=== PATIENT | female | born 1950 | race Caucasian/White ===

== ENCOUNTER → 2018-01-31 13:12 | Outpatient (CLI) | payer MEDICARE, OTHER, SELFPAY ==
--- NOTE | 2018-01-31 13:16 | HPBI_ITS ---
MAMMOGRAPHY - BILATERAL SCREENING REASON FOR EXAM: Female, 67 years old. Routine annual screening examination. PERTINENT HISTORY: Sisters with breast cancer. TECHNIQUE: Digital bilateral breast stacy (3D mammographic acquisition) in the CC and MLO projections. 2-D mediolateral oblique (MLO) and craniocaudad (CC) views of both breasts were obtained. CAD: Full Field Digital Mammography with Computer Added Detection was performed. COMPARISON: Comparison is made with prior study dated June 14, 2017 and August 28, 2015. FINDINGS: Breast Composition: There are scattered areas of fibroglandular density. There are no dominant masses or suspicious calcifications. There is a 4.9 mm x 6.0 mm well-defined nodule in the mid lateral portion of the right breast. A central notch is seen. This most likely represents a benign lymph node. No other significant abnormalities are identified. There has been no significant change since the prior study. HPBI/SCREENING MAMM (CAD), BILAT IMPRESSION: Stable bilateral screening mammogram. Yearly follow-up mammogram recommended. (A) ASSESSMENT CATEGORY: BIRADS Category 2: Benign. A letter regarding these results will be sent to the patient by the facility within 30 days. Approximately 10% of breast cancers are not detected by mammography. A normal mammogram should not delay biopsy of a clinically suspicious abnormality. [id number] Electronically Signed: Kvng Michael MD at 14:26 EDT Tel [phone], Service support ,
== END ==
PROVIDERS: Family Provider Internal Medicine; PCP Internal Medicine; Visit Provider Internal Medicine
DX: Z12.31 Encounter for screening mammogram for malignant neoplasm of breast (principal)
CPT/HCPCS: 77063; 77067

== ENCOUNTER → 2018-02-03 09:46 | Outpatient (CLI) | payer MEDICARE, OTHER, SELFPAY ==
--- NOTE | 2018-02-03 09:48 | US_ITS ---
STUDY: ABDOMINAL ULTRASOUND - RIGHT UPPER QUADRANT REASON FOR VISIT: Female, 68 years old. Epigastric pain. TECHNIQUE: Ultrasound evaluation of the right upper quadrant was performed with real-time and static romero-scale imaging. TECHNICAL QUALITY: Adequate. COMPARISON: None. FINDINGS: Liver: The liver measures 15.5 cm. There is increased echogenicity consistent with fatty infiltration. The bile ducts are within normal limits. There is hepatic color flow. The direction of portal flow is hepatopetal. There is no demonstrated mass lesion. Gallbladder: The patient is status post cholecystectomy. Common Bile Duct (C.B.D.): The common bile duct measures 10 mm. Pancreas: Normal size of the head, body and tail of the pancreas. There is normal echogenicity of the pancreas. There is no demonstrated pancreatic mass or cyst. Right Kidney: Normal size of the right kidney. The right kidney measures 9.7 cm x 4.2 cm x 5.0 cm. Normal renal cortex. The right cortex measures 1.3 cm. There is no demonstrated renal mass or cyst. There is no right hydronephrosis. US/Abdomen Limited IMPRESSION: Fatty infiltration of the liver. Status post cholecystectomy. Electronically Signed: Kvng Michael MD at 13:52 EDT Tel [phone], Service support ,
== END ==
PROVIDERS: Family Provider Internal Medicine; PCP Internal Medicine; Visit Provider Internal Medicine
DX: R10.13 Epigastric pain (principal)
CPT/HCPCS: 76705

== ENCOUNTER → 2018-02-14 12:22 | Outpatient (CLI) | payer MEDICARE, OTHER, SELFPAY ==
--- NOTE | 2018-02-14 13:00 | MRI_ITS ---
STUDY: MR CHOLANGIOPANCREATOGRAPHY (MRCP) REASON FOR EXAM: Female, 68 years old. Nausea, right neck and scapular pain. Symptoms off and on x 1 year, now more frequent. Gallbladder removed in 1991 TECHNIQUE: Standard MRCP technique was utilized. COMPARISON: CT 09-01-12 FINDINGS: There are calcifications of the abdominal aorta. This is consistent for atherosclerotic disease. There is no abdominal aortic aneurysm. Bilateral peripelvic renal cysts. Gall Bladder: Gall bladder is surgically absent. Cystic duct: Normal with no demonstrated fixed filling defect. Intrahepatic ducts: Mild dilation of the intrahepatic ducts. Common hepatic duct: Normal with no demonstrated fixed filling defect, dilation or stricture. Common bile duct: There is dilation of the common bile duct. A common bile duct stone is not seen. Diameter of 13 mm. Pancreatic duct: Normal with no demonstrated fixed filling defect, dilation or stricture. MRI/MRCP Abdomen without Contrast IMPRESSION: There is dilation of the common bile duct. A common bile duct stone is not seen. Electronically Signed: Vj Rajput MD at 23:25 EDT , Service support ,
== END ==
PROVIDERS: Family Provider Internal Medicine; PCP Internal Medicine; Visit Provider Internal Medicine
DX: K83.8 Other specified diseases of biliary tract (principal)
CPT/HCPCS: 74181

== ENCOUNTER → 2018-03-08 06:51 | Outpatient (CLI) | payer MEDICARE, OTHER, SELFPAY ==
[2018-03-08 08:39] LABS: AST(SGOT) 19 U/L (15-37); Alanine Aminotransfer ALT/SGPT 24 U/L (13-56); Albumin, Serum 3.8 g/dL (3.2-5.0); Alkaline Phosphatase 67 U/L (45-117); Bilirubin, Direct 0.12 mg/dL (0.00-0.30); Cholesterol 300 mg/dL (200); Free T3 2.7 pg/mL (2.18-3.98); Globulin 3.7 g/dL (2.2-4.2); High Density Lipoprotein 62 mg/dL; Protein, Total 7.5 g/dL (6.4-8.2); T4 Free Direct 0.97 ng/dL (0.76-1.46); Thyroid Stim Hormone (TSH) 3.42 uIU/mL (0.358-3.74); Triglycerides 168 mg/dL; Very Low Density Lipoprotein 34 mg/dL (5-40)
== END ==
PROVIDERS: Family Provider Internal Medicine; PCP Internal Medicine; Visit Provider Internal Medicine
DX: R10.13 Epigastric pain (principal); R94.6 Abnormal results of thyroid function studies; E78.00 Pure hypercholesterolemia, unspecified
CPT/HCPCS: 36415; 80061; 80076; 84439; 84443; 84481

== ENCOUNTER → 2018-05-09 08:21 | Outpatient (CLI) | payer MEDICARE, OTHER, SELFPAY ==
--- NOTE | 2018-05-09 08:25 | BD_ITS ---
STUDY: DUAL ENERGY X-RAY ABSORPTIOMETRY / DXA REASON FOR EXAM: Female, 68 years old. The patient is postmenopausal. Loss of height. TECHNIQUE: Bone Mineral Density (BMD) measurements of lumbar spine and bilateral hips were obtained. COMPARISON: Comparison is made with prior study dated February 10, 2011. FINDINGS: Lumbar Spine (L1-L4): g/cm2 (1.404) / T-score (2.0) / Z-score (3.7) Findings are suggestive of normal bone density with a low fracture risk. Left Femur Total: g/cm2 (1.260) / T-score (2.0) / Z-score (3.5) Left Femoral Neck: g/cm2 (1.234) / T-score (1.4) / Z-score (3.1) Right Femur Total: g/cm2 (1.117) / T-score (0.9) / Z-score (2.3) Right Femoral Neck: g/cm2 (1.078) / T-score (0.3) / Z-score (2.0) The T-Scores on the most recent prior examination were: Lumbar Spine (L1-L4): There has been improvement of bone density since the previous examination. Left Femur Total: which represents an improvement of 4%. Right Femur Total: which represents a worsening of 2.9%. BD/Dexa Bone Density Study IMPRESSION: The patient is considered normal as outlined below according to World K[employer] Organization (WHO) criteria with a low fracture risk. There has been improvement of bone density since the previous examination. Reference Information: The T-score is the number of standard deviations above or below the standard which is normal for young adults at their peak bone mineral density. The World Health Organization (WHO) interprets the T-scores as follows: Above -1 Normal bone density Between -1 and -2.5 Osteopenia Equal to / or below -2.5 Osteoporosis As a practical clinical guideline, osteopenia may be graded as follows: Mild -1 through -1.5 Moderate -1.6 through -2.0 Severe -2.1 through -2.4 The Z-score is the number of standard deviations above or below age-matched controls. A Z-score of less than -1.5 would be considered abnormal. References: 1. NIH Osteoporosis and Related Bone Diseases http://www.osteo.org 2. International Society for Clinical Densitometry http://www.iscd.org 3. National Osteoporosis Foundation http://www.nof.org Electronically Signed: Kvng Michael MD at 8:25 EDT Tel [phone], Service support ,
== END ==
PROVIDERS: Family Provider Internal Medicine; PCP Internal Medicine; Visit Provider Internal Medicine
DX: Z78.0 Asymptomatic menopausal state (principal)
CPT/HCPCS: 77080

== ENCOUNTER → 2018-05-25 09:39 | Outpatient (CLI) | payer MEDICARE, OTHER, SELFPAY ==
--- NOTE | 2018-05-25 09:42 | RAD_ITS ---
STUDY: X-RAY - LUMBAR SPINE REASON FOR EXAM: Female, 68 years old. Low back pain after long standing 5 days ago. TECHNIQUE: 5 view(s) of the lumbar spine were obtained. COMPARISON: None FINDINGS: Normal lumbar lordosis. There is no substantial scoliosis. There is a normal alignment of the vertebrae. Transitional L5 vertebral body with the sacral articulation on the left side. Negative for fracture of the lumbar spine. Advanced disc narrowing at L4-5. Mild to moderate disc narrowing at other lumbar levels with minimal spondylitic endplate changes. Hypertrophic facet arthrosis primarily at L4-5 and L5-S1 bilaterally. Aortic calcifications. Status post cholecystectomy. RAD/L/S Spine Min 4 Views IMPRESSION: Normal alignment of the lumbar spine without fracture deformity. Normal variation of a transitional L5 with a sacral articulation on the left. Advanced disc narrowing at L4-5. Mild to moderate narrowing at other lumbar levels. Facet arthrosis at L4-5 and L5-S1. Electronically Signed: Mikayla Guerrier MD at 21:17 EDT , Service support ,
== END ==
PROVIDERS: Family Provider Internal Medicine; PCP Internal Medicine; Visit Provider Nurse Practitioner Gerontology
DX: M54.5 Low back pain (principal)
CPT/HCPCS: 72110

== ENCOUNTER → 2018-06-02 08:17 | Outpatient (CLI) | payer MEDICARE, OTHER, SELFPAY ==
--- NOTE | 2018-06-02 08:19 | RAD_ITS ---
STUDY: X-RAY - CERVICAL SPINE REASON FOR EXAM: Female, 68 years old. Neck pain. TECHNIQUE: 3 view(s) of the cervical spine were obtained. COMPARISON: None FINDINGS: There are degenerative changes of the anterior atlantoaxial articulation. Normal odontoid process. There is straightening of the normal lordotic curve, a nonspecific finding, which may be due to positioning or which might be due to muscle spasm. There is spondylosis and disc space narrowing at the C5-6 level. Other disc space heights are intact. The soft tissue structures are unremarkable. RAD/Cerv Spine 2 or 3 Views IMPRESSION: Degenerative changes, as above.. No demonstrated fracture or subluxation. Electronically Signed: Jamil Paulson MD at 7:12 EDT , Service support ,
== END ==
PROVIDERS: Family Provider Internal Medicine; PCP Internal Medicine; Visit Provider Internal Medicine
DX: M89.8X1 Other specified disorders of bone, shoulder (principal)
CPT/HCPCS: 72040

== ENCOUNTER → 2018-06-21 09:04 | Outpatient (CLI) | payer MEDICARE, OTHER, SELFPAY ==
--- NOTE | 2018-06-21 09:15 | RAD_ITS ---
STUDY: X-RAY - ABDOMEN/PELVIS REASON FOR EXAM: Female, 68 years old. Groin pain TECHNIQUE: AP supine and upright views of the abdomen and pelvis. COMPARISON: None. FINDINGS: Normal visualized lung bases. There is an unremarkable bowel gas pattern. There is no demonstrated free abdominal air. The visualized liver, spleen and kidneys are grossly normal in size and morphology. Surgical clips are seen in the right upper quadrant of the abdomen. There is a transitional vertebrae of the lumbosacral junction. There are mild degenerative changes of the hip joints. RAD/Abd Inc Decub and/or Erect IMPRESSION: 1. There is no evidence of ileus, obstruction, or free intraperitoneal air. 2. There are surgical clips in the right upper quadrant of the abdomen most likely associated with cholecystectomy. 3. There is a transitional vertebrae of the lumbosacral junction. There are mild degenerative changes of the left and right hip joints. Electronically Signed: Tapan Gore MD at 16:59 EDT , Service support ,
== END ==
PROVIDERS: Family Provider Internal Medicine; PCP Internal Medicine; Visit Provider Nurse Practitioner
DX: R10.30 Lower abdominal pain, unspecified (principal)
CPT/HCPCS: 74019

== ENCOUNTER → 2018-09-08 10:37 | Outpatient (CLI) | payer MEDICARE, OTHER, SELFPAY ==
[2018-09-08 11:04] LABS: Anion Gap 5 (5-15); BUN 13 mg/dL (7-18); BUN/Creat Ratio 21.2 RATIO (10-20); Calcium,Total 9.2 mg/dL (8.5-10.1); Chloride 105 mmol/L (98-107); Creatinine, Serum 0.61 mg/dL (0.55-1.02); EST Glomerular Filtration Rate 102 mL/min (>60); Est Glom Filt Rate - Afr Amer 124 mL/min (>60); Glucose 101 mg/dL (74-106); Potassium 5.3 mmol/L (3.5-5.1); Sodium Level 140 mmol/L (136-145)
== END ==
PROVIDERS: Family Provider Internal Medicine; PCP Internal Medicine; Referring Provider Internal Medicine; Visit Provider Internal Medicine
DX: Z51.81 Encounter for therapeutic drug level monitoring (principal)
CPT/HCPCS: 80048

== ENCOUNTER 2018-09-09 09:19 | Emergency (ER) | payer MEDICARE, OTHER, SELFPAY ==
[2018-09-09 09:19] VITALS: BP 229/93; PULSE 67; RESP 17; TEMP 36.6; O2SAT 96; BMI 33.5
--- NOTE | 2018-09-09 09:30 | EKG12_ITS ---
Test Reason : HYPERTENSION Blood Pressure : / mmHG Vent. Rate : 059 BPM Atrial Rate : 059 BPM P-R Int : 178 ms QRS Dur : 094 ms QT Int : 426 ms P-R-T Axes : 021 -19 017 degrees QTc Int : 421 ms Sinus bradycardia with occasional Premature ventricular complexes Voltage criteria for left ventricular hypertrophy Abnormal ECG Confirmed by TERESE MCKAY, KERWIN ([id number]), editor producer CHARITY VILLEGAS ([id number]) on 09/12/2018 11:06:08 AM Referred By: Jessica Corona Confirmed By:KERWIN GUDINO MD
--- NOTE | 2018-09-09 09:30 | CT_ITS ---
STUDY: CT BRAIN WITHOUT CONTRAST REASON FOR EXAM: Female, 68 years old. Headache and hypertension RADIATION DOSAGE (If Supplied By Facility): CTDIvol = ( 44.99 ) mGy, DLP = ( 745.49 ) mGycm TECHNIQUE: Transaxial CT imaging of the brain was performed without administration of intravenous contrast material. # of Images: 234 Individualized dose optimization techniques were used for this CT. COMPARISON: 12/04/2010 FINDINGS: Normal soft tissue structures. Normal calvarium. There is mild cerebral atrophy with widening of the extra-axial spaces and ventricular dilatation. There are areas of decreased attenuation within the white matter tracts of the supratentorial brain, consistent with microvascular disease changes. Normal basal ganglia and thalami. Normal brainstem. There is mild cerebellar atrophy. There is no intracranial hemorrhage. There are no findings of an acute ischemic infarction. Normal visualized paranasal sinuses. CT/Brain/Head without Contrast IMPRESSION: Chronic involutional changes of the brain. Electronically Signed: Italo Brown DO at 10:22 EDT Tel , Service support ,
--- NOTE | 2018-09-09 09:35 | ED.DCSUM_ITS ---
- ER Visit Summary Date of Service: 09/09/18 Chief Complaint: Hypertension, dizzy, headache History of Present Illness: The patient is a 68 F with headache for the past 1 week. She points to the frontal area as well as radiation of the top of her scalp. She has had recent difficulty controlling her blood pressure. She has had recent medication adjustments and is currently on atenolol, 50 mg in the morning and 25 mg in the evening along with hydrochlorothiazide. Patient denies vision change, nausea, or vomiting. She denies paresthesias or weakness. Physical Examination: Blood pressure is 229/93, temperature 97.8, heart rate 67, respiratory rate 17, pulse ox 96% on room air. Patient is in no acute distress and is nontoxic appearing. Head and neck examination is normal. Heart is regular rate and rhythm. Palpable pulses are noted throughout and equal. Lungs are clear with good air movement throughout. Abdomen is soft and nontender. Bowel sounds are noted. Extremity examination is unremarkable with full range of motion. Neurologic examination reveals no focal deficits. Test Results: CBC and chemistry studies unremarkable. EKG is sinus at 59 with no sign of ischemia. CT head shows chronic involutional changes. Emergency Department Course and Treatment: Patient was given 0.2 mg of p.o. clonidine. Blood pressure has slowly come down and is currently 184/78 with a heart rate of 57. Patient was discussed with her primary care physician, Dr. Corona. Patient is to continue her atenolol and hydrochlorothiazide. We will add Norvasc 2.5 mg. Patient will also be written for a few tabs of clonidine that she can take if her systolic pressure is greater than 200. Treatment Plan: [] Disposition: Discharge Impression: Hypertension, improved This note was generated with [employer] dictation software. It may contain incorrect words, spelling, and punctuation that were not noted in review of the chart prior to signing ED Disposition - Plan for ED Patient: Chief Complaint: Hypertension Referrals: Jessica Corona DO [Primary Care Provider] -
[2018-09-09] MEDS: cloNIDine HCl 0.1 MG Tablet 0.2 MG PO (09:39)
[2018-09-09 09:41] VITALS: BP 229/92; PULSE 63; RESP 12; O2SAT 97
[2018-09-09 09:53] LABS: Absolute Lymphocyte Count 1.21 X10^3/ul (0.83-4.51); Absolute Neutrophil Count 3.9 X10^3/uL (2.0-7.7); Basophil# 0.03 X10^3/uL; Basophil% 0.5 % (0-1); Eosinophil# 0.32 X10^3/uL; Eosinophils% 5.5 % (0-5); Hemoglobin 14.2 g/dl (12.0-15.0); Lymphocyte # 1.21 X10^3/ul (4.0); Lymphocyte % 20.9 % (19-41); Mean Corp Hgb Conc 32.3 g/gl (32-36); Mean Corpuscular Hgb 30.4 pg (27.0-32.0); Mean Corpuscular Volume 94.2 fL (81-99); Mean Platelet Vol. 9.4 fl (6.2-12.0); Monocyte# 0.38 X10^3/uL; Monocyte% 6.6 % (0-10); Neutrophil # 3.85 X10^3/uL (2.7-7.7); Neutrophil % 66.3 % (47-70); POSITIVE COUNT NO; POSITIVE DIFFERENTIAL NO; POSITIVE MORPHOLOGY NO; Platelet Count 251 K/mm3 (150-450); RBC Distribution Width CV 13.3 % (11.6-14.6); RBC Distribution Width SD 45.5 fl (35.1-43.9); Red Blood Count 4.67 M/mm3 (4.2-5.4); White Blood Count 5.8 K/mm3 (4.4-11.0)
[2018-09-09 10:00] LABS: Anion Gap 7 (5-15); BUN 14 mg/dL (7-18); Calcium,Total 9.1 mg/dL (8.5-10.1); Chloride 105 mmol/L (98-107); Creatinine, Serum 0.74 mg/dL (0.55-1.02); EST Glomerular Filtration Rate 83 mL/min (>60); Est Glom Filt Rate - Afr Amer 100 mL/min (>60); Glucose 110 mg/dL (74-106); Potassium 3.7 mmol/L (3.5-5.1); Sodium Level 139 mmol/L (136-145)
[2018-09-09 11:03] VITALS: BP 215/77; PULSE 53; RESP 12; O2SAT 96
[2018-09-09 11:30] VITALS: BP 210/75
--- NOTE | 2018-09-09 12:03 | ED.DEP ---
ED Disposition - Plan for ED Patient: Disposition: Home or Assisted Living Chief Complaint: Hypertension Instructions: ED HTN Established Prescriptions: Amlodipine Besylate [Norvasc] 2.5 mg PO DAILY #30 tablet Clonidine HCl [Catapres] 0.1 mg PO BID PRN #20 tablet PRN Reason: Hypertensive Emergency Referrals: Jessica Corona DO [Primary Care Provider] - 3-5 Days if not improving
[2018-09-09 12:18] VITALS: BP 184/78; PULSE 64; RESP 18; O2SAT 99
== END 2018-09-09 12:18 | disposition home or self-care (01) ==
PROVIDERS: Emergency Provider Emergency Medicine; Family Provider Internal Medicine; PCP Internal Medicine
DX: I10 Essential (primary) hypertension (principal)
CPT/HCPCS: 70450; 80048; 85025; 93005; 99285

== ENCOUNTER → 2018-09-18 16:19 | Outpatient (CLI) | payer MEDICARE, OTHER, SELFPAY ==
--- NOTE | 2018-09-18 16:22 | US_ITS ---
STUDY: RENAL ULTRASOUND - COMPLETE REASON FOR EXAM: Female, 68 years old. Blood pressure. TECHNIQUE: Ultrasound evaluation of the kidneys was performed with real-time and static cancino-scale imaging. COMPARISON: None. FINDINGS: RIGHT KIDNEY: Normal location of the right kidney, which is normal in size. The right kidney measures 10.2 cm. There is a normal cortex of the right kidney. The renal cortex measures 1.1 cm. There is no right renal mass or cyst. There are no right renal calculi. There is no right hydronephrosis. DISTAL RIGHT URETER: There is non-visualization of the distal right ureter. There is no demonstrated right ureterovesical junction calculus. There is no demonstrated right ureteral jet. LEFT KIDNEY: Normal location of the left kidney, which is normal in size. The left kidney measures 11.0 cm. There is a normal cortex of the left kidney. The renal cortex measures 1.5 cm. There are parapelvic cysts measuring up to 1.2 cm. There are no left renal calculi. There is no left hydronephrosis. DISTAL LEFT URETER: There is non-visualization of the distal left ureter. There is no demonstrated left ureterovesical junction calculus. There is no demonstrated left ureteral jet. BLADDER: The distended urinary bladder has a volume of 69 ml. The empty urinary bladder has a volume of 0 ml. There is a normal wall thickness of the distended urinary bladder. There is no demonstrated mass within the urinary bladder. There are no demonstrated bladder calculi. US/Kidney and Bladder IMPRESSION: No hydronephrosis. Parapelvic cysts on the left. Electronically Signed: Jorge Holland MD at 19:57 EDT , Service support ,
== END ==
PROVIDERS: Family Provider Internal Medicine; PCP Internal Medicine; Referring Provider Internal Medicine; Visit Provider Internal Medicine
DX: I10 Essential (primary) hypertension (principal)
CPT/HCPCS: 76770

== ENCOUNTER → 2018-09-22 07:45 | Outpatient (CLI) | payer MEDICARE, OTHER, SELFPAY ==
--- NOTE | 2018-09-22 07:48 | RDU_ITS ---
Reason For Study: HTN without CHF Right Renal Artery Left Renal Artery Right renal artery ostium 100/23 Left renal artery ostium 90.7/17.7 RSV/EDV. PSV/EDV. Right renal artery proximal Left renal artery proximal PSV/EDV 82.2/18.9 PSV/EDV. 87/19.1 . Right renal artery mid 85.5/12.3 Left renal artery mid 71.5/14 PSV/EDV. PSV/EDV . Right renal artery distal 91.9/19 Left renal artery distal 80.4/18.5 PSV/EDV. PSV/EDV. Right RAR 0.84. Left RAR 0.76. Right Renal Parenchyma Left Renal Parenchyma Upper Pole Medula 31.9/7.75 Left upper pole medulla 33.3/9.47 PSV/EDV. PSV/EDV . Right upper pole medulla EDR 0.24 . Left upper pole medulla EDR 0.28 . Right upper pole medulla R.I. Left upper pole medulla R.I. 0.72 . 0.76 . UP Cortex 19.6/5.19 PSV/EDV. Upper [place] Cortx 34.7/10 PSV/EDV. Left upper pole cortex EDR 0.26 . Right upper pole cortex EDR 0.29 . Left upper pole cortex R.I. 0.73 . Right upper pole cortex R.I. 0.71 . Left lower Pole medulla 26.3/6.42 Right lower Pole medulla 40/9.78 PSV/EDV . PSV/EDV . Left lower pole medulla EDR 0.24 . Right lower pole medulla EDR 0.24 . Left lower pole medulla R.I. 0.76 . Right lower pole medulla R.I. Lower Pole Cortx 18.9/4.58 PSV/EDV. 0.76 . Left lower pole cortex EDR 0.24 . Lower Pole Cortex 20.5/7.03 Left lower pole cortex R.I. 0.76 . PSV/EDV. Left Renal Hilar Right lower pole cortex EDR 0.34 . LT Hilar avg 51.3/12.2 PSV/EDV . Right lower pole cortex R.I. 0.66 . Left hilar acceleration time 59 Right Renal Hilar m/sec. Right Hilar avg 55.2/9.58 PSV/EDV. Left Renal Dimensions Right hilar acceleration time 51 Left kidney size 10.5 cm . m/sec. Left cortical dimension 1.66 cm . Right Renal Dimensions Right kidney size 9.79 cm . Right cortical dimension 1.46 cm . Aorta Proximal abdominal aorta 1.59 x 1.76 cm . Proximal abdominal aorta peak systolic velocity is 111 cm/sec . Distal abdominal aorta 1.28 x 1.39 cm . Distal abdominal aorta peak systolic velocity is 119 cm/sec . Interpretation Summary Dimensions of the intra-abdominal aorta appear normal, without evidence of aneurysmal dilatation. Renal artery velocities are bilaterally normal. Acceleration times are normal bilaterally. There is no evidence of hemodynamically significant renal artery stenosis on either side. Renovascular resistance appears to be bilaterally elevated . The right cortical dimension is normal. The left cortical dimension is increased. Kidneys appear normal in size bilaterally. Ordering Physician: Jessica Corona Referring Physician: Jessica Corona M.D. Performed By: Mary Tena RVT and Student
== END ==
PROVIDERS: Family Provider Internal Medicine; PCP Internal Medicine; Visit Provider Internal Medicine
DX: I10 Essential (primary) hypertension (principal)
CPT/HCPCS: 93975

== ENCOUNTER → 2018-10-02 06:29 | Outpatient (CLI) | payer MEDICARE, OTHER, SELFPAY ==
--- NOTE | 2018-10-02 14:54 | STRESSREP_ITS ---
Stress Test Report Pharmacologic myocardial perfusion stress test. 68-year-old lady with a history of chest pain. Stress protocol EKG demonstrates sinus bradycardia with a rate of 57 beats minute normal intervals and noted resting blood pressure 142/84 mmHg. 0.4 mg of regadenoson was infused per usual protocol followed by rapid intravenous and flush injection continuous EKG monitoring was performed. Patient maintained sinus rhythm throughout the recording. The maximum heart rate attained was 88 bpm which was 58% maximum predicted heart rate maximum workload was 1 metabolic equivalent. At rest there were no ST or T wave changes noted suggest abnormal flow reserve at peak infusion no ST or T wave changes were noted suggest abnormal flow reserve occasional premature ventricular complexes were noted. Myocardial perfusion protocol. 11.8 mCi of technetium 99m sestamibi was injected at rest. 0.4 mg of regadenoson was infused per usual protocol peak infusion 33.5 mCi of technetium 99m sestamibi was injected stress images were obtained stress and rest images were reconstructed and compared in the short axis vertical long horizontal long axis gated images were also obtained next Perfusion SPECT analysis. Review of the stress images demonstrate normal uptake of tracer noted in all areas of the myocardium. The resting images similarly de monstrate normal uptake of tracer noted in all areas of the myocardium no reversibility is noted suggest ischemia no previous infarct is noted. Gated SPECT analysis: The gated ejection fraction is noted to be 57% Conclusion: Normal pharmacologic myocardial perfusion stress test. Preserved ejection fraction.
== END ==
PROVIDERS: Family Provider Internal Medicine; PCP Internal Medicine; Referring Provider Internal Medicine; Visit Provider Internal Medicine
DX: R07.89 Other chest pain (principal)
CPT/HCPCS: 78452; 93017; A9500; A4216; J2785

== ENCOUNTER 2018-10-04 13:00 | Outpatient (RCR) | payer MEDICARE, OTHER, SELFPAY ==
--- NOTE | 2018-09-27 16:19 | HP.PTEVAL ---
Patient's Visit Information NEISHA MCNEAL is a 68 year old F referred to Physical Therapy by Jessica Corona with a diagnosis of CERVICAL RADICULOPATHY. Date of Evaluation: 09/27/18 Physical Therapist: Maliha Rudolph - Visit Plan Frequency: 2-3x /Week Duration: 4-6 Weeks Plan: CERVICAL US. CTX (STARTING MANUALLY AND CONTINUEING OR PROGRESSING APPROPRIATE). POSTURE CORRECTION/STRENGTHENING, INSTRUCTION IN APPROPRIATE BODY MECHANICS AND ACTIVITY MODIFICATIONS. TOMI UE ROM, STRETCHING AND STRENGTHENING. HEP INSTRUCTION. - Subjective Subjective: Diagnosis: CERVICAL RADICULOPATHY. 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 Disability: NO. Present symptoms: RIGHT NECK AND SHOULDER BLADE PAIN. INTERMITTENT RARE LEFT FIFTH DIGIT TINGLING. NO LEFT SIDE SX'S. Present since: ABOUT A YEAR AGO AND HAS GOTTEN PROGESSIVELY WORSE. Pain Scale: Worst - 8/10 Least - 0/10. Currently: 6/10. Commenced as a result of: NO APPARENT REASON. Symptoms at onset: RIGHT SHOULDER BLADE. Worse: EATING. Better: GAS X, LYING IN A POSSITION THAT PUTS PRESSURE ON RIGHT NECK/SHOULDER BLADE, HAVING A BOWEL MVMT, PASSING GAS. SOMETIMES WAKES PATIENT UP AT NIGHT. Disturbed sleep: YES. Previous history/Previous treatment: NO NECK OR RIGHT SHOULDER HISTORY PRIOR TO A YEAR AGO. NO CHIROPRACTOR. NO NECK OR RIGHT SHOULDER SURGERY. NO NECK OR RIGHT SHOULDER INJECTIONS OR PHYSICAL THERAPY. Dizziness: NO. Tinnitis: NO. Nausea: YES - FROM GI PROBLEMS PER [facility] REPORT. Difficulty Swollowing: NO. Gait: INDEP GAIT WITHOUT ANY AD'S. NO FALLS EXCEPT 2010. Accidents: NO. Unexplained weight loss: NO. Imaging: There is spondylosis and disc space narrowing at the C5-6 level. 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 HTN. GERD. 2004 TWO LUMBAR DISCECTOMIES - BOTH BY DR. العلي AND PATIENT REPORTS DR. العلي TOLD HER HE TOOK THE WRONG DISC OUT THE FIRST TIME SO 2ND DISC TAKEN OUT 6 WEEKS LATER. PLOF (Prior Level of Function): ABLE TO SLEEP WITHOUT THIS PAIN WAKING HER UP. ABLE TO DO SAME ADL'S WITHOUT THE DISTRACTION OF THE PAIN. - Objective Sitting Posture/Standing Posture: POOR. Active Correction of posture: NE. Other Observations: INDEP GAIT AND TRANSFERS. Motor deficit: TOMI EXPRESSIVE ART THERAPIST STRENGTH 40 LBS. TOMI UE'S WFL. Sensory deficit: NO. ROM deficit: TOMI UE'S WFL WITH SLIGHT DEFICIT OF LEFT SHOULDER ROM AND STRENGTH COMPARED TO RIGHT. Reflexes: 2/2 TOMI UE'S. Dural Signs: NEGATIVE TOMI UE'S. Cervical Mvmt Loss: Flex: NIL. Pro: NIL. Ext: MOD. Ret: MOD TO REHANA. RSB: MIN. LSB: MIN. R Rot: MIN. L Rot: MIN. PATIENT DENIES INCREASED PAIN WITH CERVICAL ROM TESTING ALL PLANES - NE. Postural strength: POOR. Palpation: NO ACUTE TENDERNESS OR ASSYMETRICAL TIGHTNESS WITH PALPATION OF THE TOMI CERVICAL OR SHOULDER REGIONS. OTHER: SEATED CERVICAL DISTRACTION - NE - Goals Goal 1:: DECREASE C/O RIGHT NECK AND UE SX'S Goal Time Frame: 4-6 Weeks Goal 2:: IMPROVE SLEEP, READING AND DRIVING FUNCTION Goal Time Frame: 4-6 Weeks Goal 3:: INSTRUCT IN PROPHYLAXIS Goal Time Frame: 4-6 Weeks - Rehabilitation Potential Rehabilitation Potential: Questionable - Anticipated Interventions Patient/Client Instruction: Educate patient on: Condition, Plan of Care, Risk Factors, Benefits of Fitness Program For the Purpose of:: To improve self management Therapeutic Exercise to Include: Strength training, Body mechanics, Postural training, Passive ROM, Active ROM, Scapular Strength/Stabilization For the Purpose of:: To decrease pain, To increase ROM, To improve muscle performance and motor function, To increase tolerance to activity/condition/position, To improve ability of physical actions for home/community/work/leisure Cryotherapy (ice pack, ice massage): Yes Thermo therapy (hot pack): Yes Ultrasound (thermal/non thermal): Yes For the Purpose of:: To decrease pain, To increase ROM, To improve nutrient delivery to tissue Thank you for the opportunity to evaluate your patient. For Medicare and Medicare HMO plans, please review the plan of care and approve it. It will need to be FAXED BACK to us at [phone] for Medicare purposes. Please let me know if there are questions or concerns regarding this plan of care. Physician Signature: Date:
--- NOTE | 2018-11-24 11:42 | HP.PT.NRP ---
HP - Discharge Summary (1) - Patient Information NEISHA MCNEAL was seen in my office for initial evaluation on 09/27/18. The following Plan of Care was established for this patient: Initial Frequency: 2-3x /Week Initial Duration: 4-6 Weeks - Anticipated Interventions Patient/Client Instruction: Educate patient on: Condition, Plan of Care, Risk Factors, Benefits of Fitness Program For the Purpose of:: To improve self management Therapeutic Exercise to Include: Strength training, Body mechanics, Postural training, Passive ROM, Active ROM, Scapular Strength/Stabilization For the Purpose of:: To decrease pain, To increase ROM, To improve muscle performance and motor function, To increase tolerance to activity/condition/position, To improve ability of physical actions for home/community/work/leisure Cryotherapy (ice pack, ice massage): Yes Thermo therapy (hot pack): Yes Ultrasound (thermal/non thermal): Yes For the Purpose of:: To decrease pain, To increase ROM, To improve nutrient delivery to tissue This patient was last seen in our office 10/04/18. Pertinent comments regarding their Physical therapy will appear below: This patient has not returned to Physical Therapy and is appropriate to return to MD for further follow-up as needed. At this point I will be discontinuing this patient from physical therapy. I would be happy to see this patient again in the future if found appropriate by the physician. Thank you! Maliha Rudolph, PT, Cert MDT
== END 2018-10-04 19:00 | disposition home or self-care (01) ==
LOC: PT 13:00
PROVIDERS: Family Provider Internal Medicine; PCP Internal Medicine; Referring Provider Internal Medicine; Visit Provider Internal Medicine
DX: M54.12 Radiculopathy, cervical region (principal)
CPT/HCPCS: 97035; 97162; 97530

== ENCOUNTER → 2018-10-31 13:12 | Outpatient (CLI) | payer MEDICARE, OTHER, SELFPAY ==
--- OUTSIDE RECORDS SUMMARY | 2018-12-17 16:57 | XMS RPT_ITS | Continuity of Care Document ---
:1950 Author Organization [facility] Address [address] [place] [address] Phone Care Team Providers Name Role Phone Jessica Corona DO Unavailable Huber MCKAY, Dr. Benitez Unavailable [facility], [facility] Unavailable Emily Polk Unavailable Unavailable DONTE Odell Unavailable Unavailable Unavailable Unavailable Problems Name Dates Details Adult hypothyroidism (E03.9, 244.9) Comments: borderline -- pt chooses to follow Status: Active Annual Medicare Phyiscal WITHOUT abnormal findings (Renamed from Encounter for general adult medical examination without abnormal findings) (Z00.00, V70.9) Status: Active Bacterial sinusitis (J32.9, 473.9) Status: Active BMI 33.0-33.9,adult (Z68.33, V85.33) Status: Active BMI 33.0-33.9,adult (Z68.33, V85.33) Status: Active BMI 34.0-34.9,adult (Z68.34, V85.34) Status: Active BMI 35.0-35.9,adult (Z68.35, V85.35) Status: Active BMI 36.0-36.9,adult (Z68.36, V85.36) Status: Active Body mass index 33.0-33.9, adult (Z68.33, V85.33) Status: Active Bronchitis (J40, 490) Status: Active Cervical radiculopathy (M54.12, 723.4) Status: Active Chronic scapular pain (M89.8X1, 733.90) Comments: since no chg with diet and dr hurt found nothing GI maybe seek cervical radic etiologyrelated to gas or bowel movement so i feel its referred pain from GI or even cervical?-- assoc with eating mrcp neg normal lft-- h/o gb out Status: Active Chronic vaginitis (N76.1, 616.10) Status: Active Colon cancer screening (Renamed from Encounter for screening for malignant neoplasm of colon) (Z12.11, V76.51) Comments: scope 2017- Joleen 2103 Status: Active Common bile duct dilation (K83.8, 576.8) Status: Active Deliveries (Parity) Comments: Term, 2 Status: Active 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, 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) Comments: stable Status: Active Diverticulosis of colon (K57.30, 562.10) Comments: clinically stable Status: Active Encounter for Medicare annual wellness exam (Z00.00, V70.0) Status: Active Encounter for screening mammogram for breast cancer (Renamed from Encounter for screening mammogram for malignant neoplasm of breast) (Z12.31, V76.12) Comments: mamogram 2017 Status: Active Epigastric pain (R10.13, 789.06) Status: Active Gas pain (R14.1, 787.3) Comments: SIBO?-- try rx again with FODMAP diet Status: Active GERD (gastroesophageal reflux disease) (K21.9, 530.81) Comments: last EGD only thing ever found intermittently was mild gastritis - & not on every scopereally would like her to wean off ppi -- add pepcid to ti to start wean alojng with Apple Cidar vinegar and aloe vera juice and zypan Status: Active Groin pain (R10.30, 789.09) Comments: rt and left ? groin strain, constipation checking flat plate, history of repair of cystocele Status: Active Hearing loss, left (H91.92, 389.9) Comments: with fullness, will try antihistamine allergy med and observ Status: Active Hypercholesteremia (E78.00, 272.0) Comments: uncontrolledno one in family tolerates statins -- she doesnt want it nor whelcol or otc red rice yeast Status: Active Hypertension (I10, 401.9) Status: Active Hypertensive heart disease without congestive heart failure (I11.9, 402.90) Status: Active Hypopotassemia (E87.6, 276.8) Status: Active Irritable Bowel Syndrome (K58.9, 564.1) Comments: stable Status: Active Irritable bowel syndrome with diarrhea (K58.0, 564.1) Status: Active Lower back pain (M54.5, 724.2) Status: Active Nausea (R11.0, 787.02) Status: Active Nausea (R11.0, 787.02) 13-Feb-2010 Comments: off and on and recurring Status: Active Nausea (R11.0, 787.02) Comments: chronic nausea -- use promethazine prn -- tums and gasx, mylanta has helped alot to minimize use -- using ppi( prevacid)had EGD -- trying FODMAP diet -- xifaxan got super nausea and sick from it Status: Active Non-smoker (Z78.9, V49.89) Status: Active Non-smoker (Z78.9, V49.89) Status: Active Non-smoker (Z78.9, V49.89) Status: Active Nutritional counseling (Z71.3, V65.3) Status: Active Other intervertebral disc degeneration, lumbar region (M51.36, 722.52) Status: Active Other premature beats (I49.49, 427.69) Status: Active Palpitations (R00.2, 785.1) Status: Active Postmenopausal (Renamed from Postmenopausal status) (Z78.0, V49.81) Status: Active Pregnancies () Comments: 2 Status: Active Right upper quadrant pain (R10.11, 789.01) Status: Active Sciatica of right side (M54.31, 724.3) Status: Active SCREENING FOR BREAST CANCER (Z12.39, V76.10) Status: Active Spinal stenosis of lumbar region (M48.061, 724.02) Comments: pain managed and stable Status: Active Tendonitis, bicipital (M75.20, 726.12) Status: Active Therapeutic drug monitoring (Z51.81, V58.83) Status: Active Unspecified Diagnosis Status: Active Unspecified Diagnosis Status: Active Unspecified osteoarthritis, unspecified site (M19.90, 715.90) Status: Active UTI (urinary tract infection) (N39.0, 599.0) Status: Active Wheezing (R06.2, 786.07) Status: Active Medications Name Dates Details Atenolol 50 MG Oral Tablet tad Tablet 1tab in am and 1/2 in evening for 90 days Quantity: 135 {Tablet} Refills: 3 Ordered:08-Sep-2018 Mayte Corona DO, DO, Kathleen Start : 08-Sep-2018 Active Augmentin 875-125 MG Oral Tablet 1 (one) Tablet bid for 7 days Quantity: 14 {Tablet} Refills: 0 Ordered:11-Sep-2018 Mayte Corona DO, DO, Kathleen Start : 11-Sep-2018 Active Halobetasol Propionate 0.05 % External Ointment 1 (one) Ointment Ointment prn for 0 days Quantity: 1 {Tube} Refills: 1 Ordered:22-Dec-2015 Addie Odell LPN Start : 22-Dec-2015 Active HydroCHLOROthiazide 25 MG Oral Tablet 1 (one) Tablet daily for 0 days Quantity: 30 {Tablet} Refills: 3 Ordered:08-Sep-2018 Mayte Corona DO, DO, Kathleen Start : 08-Sep-2018 Active Prevacid 30 MG Oral Capsule Delayed Release [address] daily for 90 days Quantity: 90 {Capsule} Refills: 3 Ordered:26-Jul-2018 Mayte Corona DO, DO, Kathleen Start : 26-Jul-2018 Active PROAIR HFA, 108 (90 Base)MCG/ACT (Inhalation Aerosol Solution) 2 (two) Puff Puff tid for 0 days Quantity: 1 {Inhaler} Refills: 0 Ordered:09-Jun-2015 Jud Samaniego CNP Start : 09-Jun-2015 Active Promethazine HCl 25 MG Oral Tablet 1 (one) Tablet q8hr prn for 0 days Quantity: 10 {Tablet} Refills: 0 Ordered:07-Aug-2018 Mayte Corona DO, DO, Kathleen Start : 07-Aug-2018 Active TiZANidine HCl 4 MG Oral Tablet 1 (one) Tablet Tablet bid for 0 days Quantity: 60 {Tablet} Refills: 0 Ordered:07-Aug-2018 Emily Polk Start : 07-Aug-2018 Active ALIGN (Oral Capsule) qd Inactive ALIGN (Oral Capsule) 1 Capsule qd for 30 days Refills: 0 Ordered:16-Nov-2013 ANNETTE Powell Start : 27-Jul-2013 End : 16-Nov-2013 Inactive BACTRIM DS, 800-160MG (Oral Tablet) 1 (one) Tablet bid for 5 days Quantity: 10 {Tablet} Refills: 0 Ordered:26-Apr-2011 Danette SPRINGER Mildred Start : 26-Apr-2011 End : 01-May-2011 Inactive Bentyl 10 MG Oral Capsule 1 (one) Capsule q 8hrs prn pain for 0 days Quantity: 60 {Capsule} Refills: 4 Ordered:07-Aug-2018 Emily Polk Start : 13-Mar-2018 End : 07-Aug-2018 Inactive Carafate 1 GM Oral Tablet 1 Tablet as needed for 0 days Quantity: 120 {Tablet} Refills: 3 Ordered:23-Sep-2017 Mayte Corona DO, DO, Kathleen Start : 03-Aug-2017 End : 23-Sep-2017 Inactive Comments:Medication taken as needed. Carisoprodol 250 MG Oral Tablet 1 (one) Tablet PO QHS for 3 days Quantity: 3 {Tablet} Refills: 0 Ordered:25-May-2018 Addie Mallory Start : 25-May-2018 End : 28-May-2018 Inactive Comments:[id number] of Right Side (M54.31)#Three CELEBREX, 200MG (Oral Capsule) Capsule QD for 0 days Quantity: 30 {Capsule} Refills: 0 Ordered:03-Apr-2007 Addie Odell LPN Start : 03-Apr-2007 End : 23-Feb-2008 Inactive CHERATUSSIN AC, 100-10MG/5ML (Oral Syrup) 1-2 Teaspoon qhs prn for 0 days Quantity: 6 {Ounce} Refills: 0 Ordered:19-May-2015 Addie Odell LPN Start : 05-May-2015 End : 19-May-2015 Inactive Cimetidine 400 MG Oral Tablet 1 (one) Tablet Tablet bid for 0 days Quantity: 60 {Tablet} Refills: 3 Ordered:07-Aug-2018 Emily Polk Start : 23-Sep-2017 End : 07-Aug-2018 Inactive CIPRO, 500MG (Oral Tablet) 1 Tablet bid for 10 days Quantity: 20 {Tablet} Refills: 0 Ordered:10-Sep-2010 Addie Odell LPN Start : 10-Sep-2010 End : 20-Sep-2010 Inactive CYCLOBENZAPRINE HCL, 5MG (Oral Tablet) 1 (one) Tablet Tablet tid prn for 0 days Quantity: 30 {Tablet} Refills: 0 Ordered:22-Oct-2015 Addie Odell LPN Start : 11-Apr-2015 End : 22-Oct-2015 Inactive Comments:CANCEL SOMA RX DEXILANT, 60MG (Oral Capsule Delayed Release) [address] qd for 0 days Quantity: 30 {Capsule} Refills: 7 Ordered:04-Feb-2014 Addie Odell LPN Start : 28-Dec-2013 End : 04-Feb-2014 Inactive DIOVAN, 40MG (Oral Tablet) 1 Tablet qd for 0 days Quantity: 30 {Tablet} Refills: 0 Ordered:20-Apr-2011 Nuria Handy LPN Start : 25-Mar-2011 End : 20-Apr-2011 Inactive HCTZ 25mg. QD Inactive KLOR-CON M20, 20MEQ (Oral Tablet Extended Release) 1 Tablet ER qd for 0 days Quantity: 30 {Tablet_ER} Refills: 1 Ordered:02-Jul-2011 Addie Odell LPN Start : 19-Feb-2011 End : 02-Jul-2011 Inactive KLOR-CON, 20MEQ (Oral Packet) 1 Packet qd for 30 days Quantity: 30 {Packet} Refills: 1 Ordered:19-Feb-2011 Yessy Leblanc LPN Start : 18-Feb-2011 End : 19-Feb-2011 Inactive LEVAQUIN, 500MG (Oral Tablet) 1 Tablet daily for 10 days Quantity: 10 {Tablet} Refills: 0 Ordered:05-May-2015 Jud Samaniego CNP Start : 05-May-2015 End : 15-May-2015 Inactive Macrobid 100 MG Oral Capsule 1 (one) Capsule bid for 3 days Quantity: 6 {Capsule} Refills: 0 Ordered:21-Jun-2018 Jud Samaniego CNP Start : 21-Jun-2018 End : 24-Jun-2018 Inactive NexIUM 40 MG Oral Capsule Delayed Release 1 (one) Capsule qd for 30 days Quantity: 30 {Capsule} Refills: 3 Ordered:26-Jul-2018 Yessy Leblanc LPN Start : 30-Jun-2018 End : 26-Jul-2018 Inactive NORVASC, 2.5MG (Oral Tablet) 1 (one) Tablet Daily for 0 days Quantity: 30 {Tablet} Refills: 3 Ordered:10-Feb-2010 ANNETTE Powell Start : 18-Aug-2009 Inactive PredniSONE 10 MG Oral Tablet 1 (one) Tablet bid x 3 days, then daily x 3 days then 1/2 x3 days for 0 days Quantity: 12 {Tablet} Refills: 0 Ordered:02-Jun-2018 Addie Odell LPN Start : 25-May-2018 End : 02-Jun-2018 Inactive Comments:with food PREDNISONE, 20MG (Oral Tablet) 1 (one) Tablet qd for 4 days Quantity: 4 {Tablet} Refills: 0 Ordered:07-Feb-2012 Mayte Corona DO, DO, Kathleen Start : 07-Feb-2012 End : 11-Feb-2012 Inactive Comments:1 tab daily PROMETHAZINE HCL, 25MG (Oral Tablet) 1 (one) Tablet q 8 hr prn for 0 days Quantity: 30 {Tablet} Refills: 0 Ordered:19-May-2015 Addie Odell LPN Start : 18-Nov-2014 End : 19-May-2015 Inactive Comments:thirty PROVENTIL HFA, 108 (90 Base)MCG/ACT (Inhalation Aerosol Solution) 2 (two) Aerosol Soln Q 4hr/PRN for 0 days Quantity: 1 {Aerosol_Soln} Refills: 0 Ordered:05-Mar-2009 Addie Odell LPN Start : 05-Mar-2009 End : 18-Aug-2009 Inactive PYRIDIUM, 100MG (Oral Tablet) 1 Tablet bid x 3 days for 3 days Quantity: 6 {Tablet} Refills: 0 Ordered:21-Aug-2010 Addie Odell LPN Start : 21-Aug-2010 End : 24-Aug-2010 Inactive PYRIDIUM, 100MG (Oral Tablet) 1 (one) Tablet tid for 2 days Refills: 0 Ordered:03-Aug-2010 Jud Samaniego CNP Start : 28-Jul-2010 End : 30-Jul-2010 Inactive SOMA, 250MG (Oral Tablet) 1 (one) Tablet qid prn for 0 days Quantity: 30 {Tablet} Refills: 0 Ordered:11-Apr-2015 Yessy Leblanc LPN Start : 11-Apr-2015 End : 11-Apr-2015 Inactive Comments:with food SOMA, 350MG (Oral Tablet) 1 (one) Tablet TID PRN for 0 days Quantity: 60 {Tablet} Refills: 0 Ordered:01-Feb-2011 Addie Odell LPN Start : 18-Aug-2009 End : 01-Feb-2011 Inactive VITAMIN D, 1000UNIT (Oral Tablet) 1 qd for 0 days Refills: 0 Ordered:31-Jan-2012 Addie Odell LPN End : 31-Jan-2012 Inactive Xifaxan 550 MG Oral Tablet 1 (one) Tablet tid for 7 days Quantity: 21 {Tablet} Refills: 0 Ordered:07-Aug-2018 Mayte Corona DO, DO, Kathleen Start : 07-Aug-2018 End : 14-Aug-2018 Inactive ATENOLOL-CHLORTHALIDONE, 100-25MG (Oral Tablet) 1/2 Tablet qd for 0 days Quantity: 90 {Tablet} Refills: 3 Ordered:10-Oct-2013 Mayte Corona DO, DO, Kathleen Start : 10-Oct-2013 End : 10-Oct-2013 Discontinued Comments:pt going to cut in half to see if tolerates ATENOLOL-CHLORTHALIDONE, 50-25MG (Oral Tablet) 1 Tablet daily for 0 days Quantity: 30 {Tablet} Refills: 11 Ordered:10-Oct-2013 Mayte Corona DO, DO, Kathleen Start : 10-Oct-2013 End : 10-Oct-2013 Discontinued Comments:dizzy BYSTOLIC, 5MG (Oral Tablet) 1 (one) Tablet daily for 0 days Quantity: 30 {Tablet} Refills: 4 Ordered:01-Feb-2011 Mayte Corona DO, DO, Kathleen Start : 01-Feb-2011 End : 01-Feb-2011 Discontinued CLINDAMYCIN HCL, 300MG (Oral Capsule) 1 (one) Capsule q6h for 0 days Quantity: 28 {Capsule} Refills: 0 Ordered:26-Aug-2015 Sandy Galeano LPN Start : 14-Aug-2015 End : 26-Aug-2015 Discontinued LIPITOR, 10MG (Oral Tablet) 1 (one) Tablet daily for 0 days Quantity: 30 {Tablet} Refills: 3 Ordered:27-Jul-2013 Mayte Corona DO, DO, Kathleen Start : 27-Jul-2013 End : 27-Jul-2013 Discontinued Comments:leg pain terrible Lisinopril 5 MG Oral Tablet 1 Tablet two times daily for 0 days Quantity: 60 {Tablet} Refills: 1 Ordered:08-Sep-2018 Mayte Corona DO, DO, Kathleen Start : 08-Sep-2018 End : 08-Sep-2018 Discontinued MEDROL (KM), 4MG (Oral Tablet) 1 (one) Tablet TAD for 0 days Quantity: 1 {Package} Refills: 0 Ordered:05-May-2015 Sandy Galeano LPN Start : 11-Apr-2015 End : 05-May-2015 Discontinued Comments:with food PROTONIX, 40MG (Oral Tablet Delayed Release) [address] QD for 0 days Refills: 0 Ordered:14-Apr-2007 ANNETTE Powell Start : 13-Jan-2007 End : 21-Feb-2007 Discontinued PYRIDIATE, 100MG (PO Tab) 1 bid for 0 days Refills: 0 Ordered:21-Aug-2010 Stephy Covington LPN End : 21-Aug-2010 Discontinued Comments:This order discontinued per [facility]. TENORMIN, 50MG (Oral Tablet) 1 Tablet qd for 0 days Quantity: 30 {Tablet} Refills: 3 Ordered:11-Apr-2015 Sandy Galeano LPN Start : 10-Oct-2013 End : 11-Apr-2015 Discontinued URISPAS, 100MG (Oral Tablet) 1-2 Tablet tid for 0 days Quantity: 20 {Tablet} Refills: 0 Ordered:01-Feb-2011 Addie Odell LPN Start : 13-Aug-2010 End : 01-Feb-2011 Discontinued Comments:This order discontinued per [facility]. Allergies and Adverse Reactions Name Dates Details Demerol (Allergy) Status: Active MSO4 (Allergy) Status: Active Percocet (Allergy) Status: Active Vicoden (Allergy) Status: Active Past Medical History Name Dates Details Abdominal pain, acute, left lower quadrant (R10.32, 789.04) Status: Inactive as of 16-Nov-2013 Abdominal pain, acute, right lower quadrant (R10.31, 789.03) Status: Inactive as of 27-Jul-2013 Abnormal TSH (R79.89, 790.6) Status: Inactive as of 13-Mar-2018 Allergic rhinitis (J30.9, 477.9) Status: Inactive as of 03-Aug-2017 Back pain (M54.9, 724.5) Status: Resolved as of 19-May-2015 Benign essential hypertension (I10, 401.1) Status: Inactive as of 25-Mar-2011 Bronchitis (J40, 490) Comments: [facility] -- try cont albluterol, do muciinex and water and see if imporves Status: Inactive as of 03-Aug-2017 Cough (R05, 786.2) Status: Inactive as of 03-Aug-2017 Diarrhea (R19.7, 787.91) Status: Inactive as of 03-Aug-2017 Diarrhea (R19.7, 787.91) Status: Inactive as of 10-Oct-2013 Dysuria (R30.0, 788.1) Status: Inactive as of 16-Nov-2013 Epigastric pain (R10.13, 789.06) Status: Resolved as of 26-Mar-2013 Eustachian tube dysfunction (H69.80, 381.81) Status: Inactive as of 03-Aug-2017 Foot injury (S99.929A, 959.7) Status: Inactive as of 03-Aug-2017 Foot pain (M79.673, 729.5) Comments: R Status: Inactive as of 03-Aug-2017 Fracture Of Arm Comments: 01/01 Status: Inactive as of 16-Nov-2013 History of soft tissue injury (Z87.2, V13.3) Status: Inactive as of 03-Aug-2017 Indigestion (Renamed from Acid indigestion) (K30, 536.8) Status: Inactive as of 03-Aug-2017 Influenza vaccination declined (Renamed from Refused influenza vaccine) (Z28.21, V64.06) Status: Inactive as of 13-Mar-2018 Low back pain potentially associated with radiculopathy (M54.5, 724.2) Status: Inactive as of 03-Aug-2017 Need for prophylactic vaccination and inoculation against influenza (Z23, V04.81) Status: Inactive as of 16-Nov-2013 Other specified abnormal findings of blood chemistry (R79.89, 790.6) Status: Inactive as of 13-Mar-2018 Other specified viral infection, in conditions classified elsewhere and of unspecified site (B97.89, 079.89) Status: Inactive as of 16-Nov-2013 Pain in unspecified joint (M25.50, 719.40) Status: Inactive as of 03-Aug-2017 Pain of lower leg, unspecified laterality (M79.669, 729.5) 10-Feb-2010 Status: Inactive as of 03-Aug-2017 Shoulder Pain (M25.519, 719.41) Comments: if relief with bicep inj good if not do full PT and assess rotator cuff along with bicep and consider imaging /ortho consult Status: Inactive as of 03-Aug-2017 Shoulder pain (M25.519, 719.41) Comments: still problem reveiwed with patient recent tests xr impingment and rotator cuff will inject and PT not help MRI and ortho sx Status: Inactive as of 01-Apr-2009 Sinus pressure (J34.89, 478.19) Status: Inactive as of 10-Oct-2013 Thyromegaly (E04.9, 240.9) Status: Inactive as of 16-Nov-2013 Unspecified Diagnosis Status: Inactive as of 16-Nov-2013 Unspecified Diagnosis Status: Inactive as of 16-Nov-2013 Unspecified Diagnosis Status: Inactive as of 16-Nov-2013 Unspecified Diagnosis Status: Inactive as of 16-Nov-2013 Urinary frequency (R35.0, 788.41) Status: Resolved as of 26-Mar-2013 Well woman exam (Z00.00, V70.0) Status: Inactive as of 27-Jul-2013 Procedures Procedure Dates Details Bladder sx Completed Comments: 10/06 Cholecystectomy Completed Hysterectomy; Total Completed Comments: 10/06 Date Value Details 09-Sep-2018 Emergency Department Summary Result: Comments: See Note; NOTES: [facility] Medical Records Department [address] [place] [address] Emergency Department Summary 09/09/18 0934 MR#: [id number] Acct: [id number] Name: NEISHA TOBAR Rep #: [id number] : 1950 68 From: Anel Hunter MD PCP: Jessica Corona DO Status: DEP ER - ER Visit Summary Date of Service: 09/09/18 Chief Complaint: Hypertension, dizzy, headache History of Present Illness: The patient is a 68 F with headache for the past 1 week. She points to the frontal area as well as radiation of the top of her scalp. She has had recent difficulty controlling her blood pressure. She has had recent medication adjustments and is currently on atenolol, 50 mg in the morning and 25 mg in the evening along with hydrochlorothiazide. Patient denies visi on change, nausea, or vomiting. She denies paresthesias or weakness. Physical Examination: Blood pressure is 229/93, temperature 97.8, heart rate 67, respiratory rate 17, pulse ox 96% on room air. Josette ent is in no acute distress and is nontoxic appearing. Head and neck examination is normal. Heart is regular rate and rhythm. Palpable pulses are noted throughout and equal. Lungs are clear with good ai r movement throughout. Abdomen is soft and nontender. Bowel sounds are noted. Extremity examination is unremarkable with full range of motion. Neurologic examination reveals no focal deficits. Test Res ults: CBC and chemistry studies unremarkable. EKG is sinus at 59 with no sign of ischemia. CT head shows chronic involutional changes. Emergency Department Course and Treatment: Patient was given 0.2 m g of p.o. clonidine. Blood pressure has slowly come down and is currently 184/78 with a heart rate of 57. Patient was discussed with her primary care physician, Dr. Corona. Patient is to continue her at enolol and hydrochlorothiazide. We will add Norvasc 2.5 mg. Patient will also be written for a few tabs of clonidine that she can take if her systolic pressure is greater than 200. Treatment Plan: [] Disposition: Discharge Impression: Hypertension, improved This note was generated with [employer] dictation software. It may contain incorrect words, spelling, and punctuation that were not noted in rev iew of the chart prior to signing ED Disposition - Plan for ED Patient: Chief Complaint: Hypertension Referrals: Jessica Corona DO [Primary Care Provider] - What to do if you have Problems For any increased pain, shortness of breath, bleeding, nausea or vomiting, chest pain, or any unexpected problems, contact your Primary Care Provider. Call [facility] ([phone]) or report to the [facility] Emergency Room. Call 911 if necessary. 09/09/18 1633 <Electronically signed by Anel Hunter MD> Date Anel Hunter MD Cos igner Signature (If Indicated): Date CC: Jessica Corona DO 09-Sep-2018 Discharge Instruction Result: Comments: See Note; NOTES: [facility] Medical Records Department [address] [place] [address] Discharge Instruction 09/09/18 1203 MR#: [id number] Acct: [id number] Name: DAKOTACatalinoLydia Rep #: [id number] : 1950 68 From: Anel Hunter MD PCP: Jessica Corona DO Status: REG ER ED Disposition - Plan for ED Patient: Disposition: Home or Assisted Living Chief Complain t: Hypertension Instructions: ED HTN Established Prescriptions: Amlodipine Besylate [Norvasc] 2.5 mg PO DAILY #30 tablet Clonidine HCl [Catapres] 0.1 mg PO BID PRN #20 tablet PRN Reason: Hypertensive Em ergency Referrals: Jessica Corona DO [Primary Care Provider] - 3-5 Days if not improving What to do if you have Problems For any increased pain, shortness of breath, bleeding, nausea or vomiting, chest pain, or any unexpected problems, contact your Primary Care Provider. Call [facility] ([phone]) or report to the closest Emergency Room. Call 911 if necessary. 09/09/18 1207 < Electronically signed by Anel Hunter MD> Date Anel Hunter MD Cosigner Signature (If Indicated): Date CC: Jessica Corona DO 09-Sep-2018 Brain/Head without Contrast Result: Comments: See Note; NOTES: [facility] Imaging Services [address] [facility] [place] [address] Brain/Head without Contrast MR#: [id number] Acct: [id number] Name: NEISHA TOBAR Rep #: [id number] : 1950 F 68 From: Italo Brown DO PCP: Jessica Corona DO Status: REG ER Study: Brain/Head without Contrast Date of Exam: 09/09/18 Exam# [id number] Ordering Dr: Anel Hunter MD [facility]: CT BRAIN WITHOUT CONTRAST REASON FOR EXAM: Female, 68 years old. Headache and hypertension RADIATION DOSAGE (If Supplied By Facility): CTDIvol = ( 44.99 ) mGy, DLP = ( 745.49 ) mGycm TECHNIQUE: Transaxial CT imaging of the brain was performed without administration of intravenous contrast material. # of Images: 234 Individualized dose optimization techniques were used for this CT. COMPARISO N: 12/04/2010 FINDINGS: Normal soft tissue structures. Normal calvarium. There is mild cerebral atrophy with widening of the extra-axial spaces and ventricular dilat ation. There are areas of decreased attenuation within the white matter tracts of the supratentorial brain, consistent with microvascular disease changes. Normal basal ganglia and thalami. Normal brains tem. There is mild cerebellar atrophy. There is no intracranial hemorrhage. There are no findings of an acute ischemic infarction. Normal visualized paranasal sinuses. ___ CT/Brain/Head without Contrast IMPRESSION: Chronic involutional changes of the brain. Electronically Signed: Italo Brown DO at 10:22 EDT Tel , Service support , CC: Anel Hunter MD; Jessica Corona DO Remedial [place]: Signed 21-Jun-2018 [employer] Decub and/or Erect Result: Comments: See Note; NOTES: [facility] Imaging Services [address] [place] [address] [employer] Decub and/or Erect MR#: [id number] Acct: [id number] Name: NEISHA TOBAR Rep #: [id number] : 1950 F 68 From: Tapan Gore MD PCP: Jessica Corona DO Status: REG CLI Study: Abd Inc Decub and/or Erect Date of Exam: 06/21/18 Exam# [id number] Ordering Dr: Jud Samaniego Y: X-RAY - ABDOMEN/PELVIS REASON FOR EXAM: Female, 68 years old. Groin pain TECHNIQUE: AP supine and upright views of the abdomen and pelvis. COMPARISON: None. FI NDINGS: Normal visualized lung bases. There is an unremarkable bowel gas pattern. There is no demonstrated free abdominal air. The visualized liver, spleen and kidneys are grossly normal in size and m orphology. Surgical clips are seen in the right upper quadrant of the abdomen. There is a transitional vertebrae of the lumbosacral junction. There are mild degenerative changes of the hip joints. ____ RAD/Abd Inc Decub and/or Erect IMPRESSION: 1. There is no evidence of ileus, obstruction, or free intraperitoneal air. 2. There are surgical clips in the right upper quadrant of the abdomen most likely associated with cholecystectomy. 3. There is a transitional vertebrae of the lumbosacral junction. There are mild degenerative changes of the left an d right hip joints. Electronically Signed: Tapan Gore MD at 16:59 EDT , Service support , CC: Jud Samaniego TECHNICIAN TRAINEE; Jessica Corona DO Remedial Masseur: Signed 02-Jun-2018 Cerv Spine 2 or 3 Views Result: Comments: See Note; NOTES: [facility] Imaging Services [address] [place] [address] Cerv Spine 2 or 3 Views MR#: [id number] Acct: [id number] Name: NEISHA TOBAR Rep #: [id number] : 1950 F 68 From: Jamil Paulson MD PCP: Jessica Corona DO Status: REG CLI Study: Cerv Spine 2 or 3 Views Date of Exam: 06/02/18 Exam# [id number] Ordering Dr: Jessica Corona [facility] - CERVICAL SPINE REASON FOR EXAM: Female, 68 years old. Neck pain. TECHNIQUE: 3 view(s) of the cervical spine were obtained. COMPARISON: None FINDINGS: There are degenerative changes of the anterior atlantoaxial articulation. Normal odontoid process. There is straightening of the normal lordotic curve, a nonspecific finding, which may be due to posit ioning or which might be due to muscle spasm. There is spondylosis and disc space narrowing at the C5-6 level. Other disc space heights are intact. The soft tissue structures are unremarkable. RAD/Cerv Spine 2 or 3 Views IMPRESSION: Degenerative changes, as above.. No demonstrated fracture or subluxation. Electronically Signed: Jamil mchugh MD at 7:12 EDT , Service support , CC: Jessica Corona DO Remedial Masseur: Signed 25-May-2018 L/S Spine Min 4 Views Result: Comments: See Note; NOTES: [facility] Imaging Services [address] [place] [address] L/S Spine Min 4 Views MR#: [id number] Acct: [id number] Name: NEISHA TOBAR Rep #: [id number] : 1950 F 68 From: Mikayla Guerrier MD PCP: Jessica Corona DO Status: REG CLI Study: L/S Spine Min 4 Views Date of Exam: 05/25/18 Exam# [id number] Ordering Dr: Addie Mallory TECHNICIAN TRAINEE-C STUDY: X -RAY - LUMBAR SPINE REASON FOR EXAM: Female, 68 years old. Low back pain after long standing 5 days ago. TECHNIQUE: 5 view(s) of the lumbar spine were obtained. COMPARISON: None FINDINGS: Normal lumbar lordosis. There is no substantial scoliosis. There is a normal alignment of the vertebrae. Transitional L5 vertebral body with the sacral articulation on the left side. Negative for fracture of the lumbar spine. Advanced disc narrowing at L4-5. Mild to moderate disc narrowing at other lumbar levels with minimal spondylitic endplate changes. Hypertrophic facet a rthrosis primarily at L4-5 and L5-S1 bilaterally. Aortic calcifications. Status post cholecystectomy. RAD/L/S Spine Min 4 Views IMPRESSION: Norm al alignment of the lumbar spine without fracture deformity. Normal variation of a transitional L5 with a sacral articulation on the left. Advanced disc narrowing at L4-5. Mild to moderate narrowing a t other lumbar levels. Facet arthrosis at L4-5 and L5-S1. Electronically Signed: Mikayla Guerrier MD at 21:17 EDT , Service support , CC: DEYSI Mallory; Jessica Corona DO Remedial Masseur: Signed 09-May-2018 Dexa Bone Density Study Result: Comments: See Note; NOTES: [facility] Imaging Services [address] [place] [address] Dexa Bone Density Study MR#: [id number] Acct: [id number] Name: NEISHA TOBAR Rep #: [id number] : 1950 F 68 From: Kvng Cutler MD PCP: Jessica Corona DO Status: REG CLI Study: Dexa Bone Density Study Date of Exam: 05/09/18 Exam# [id number] Ordering Dr: Jessica Corona DO STUDY: DUAL ENERGY X-RAY ABSORPTIOMETRY / DXA REASON FOR EXAM: Female, 68 years old. The patient is postmenopausal. Loss of height. TECHNIQUE: Bone Mineral Density (BMD) measurements of lumbar spine a nd bilateral hips were obtained. COMPARISON: Comparison is made with prior study dated February 10, 2011. FINDINGS: Lumbar Spine (L1-L4): g/cm2 (1.404) / T-score (2.0 ) / Z-score (3.7) Findings are suggestive of normal bone density with a low fracture risk. Left Femur Total: g/cm2 (1.260) / T-score (2.0) / Z-score (3.5) Left Femoral Neck: g/cm2 (1.234) / T-score (1. 4) / Z-score (3.1) Right Femur Total: g/cm2 (1.117) / T-score (0.9) / Z-score (2.3) Right Femoral Neck: g/cm2 (1.078) / T-score (0.3) / Z-score (2.0) The T- Scores on the most recent prior examination w ere: Lumbar Spine (L1-L4): There has been improvement of bone density since the previous examination. Left Femur Total: which represents an improvement of 4%. Right Femur Total: which represents a wor sening of 2.9%. BD/Dexa Bone Density Study IMPRESSION: The patient is considered normal as outlined below according to World Kuldip Organization ( WHO) criteria with a low fracture risk. There has been improvement of bone density since the previous examination. Reference Information: The T-score is the number of standard deviations above or below the standard which is normal for young adults at their peak bone mineral density. The World Health Organization (WHO) interprets the T-scores as follows: Above -1 Normal bone density Between -1 and -2.5 Osteopenia Equal to / or below -2.5 Osteoporosis As a practical clinical guideline, osteopenia may be graded as follows: Mild - 1 through -1.5 Moderate -1.6 throu gh -2.0 Severe -2.1 through -2.4 The Z-score is the number of standard deviations above or below age-matched controls. A Z-score of less than -1.5 would be considered abnormal. References: 1. NIH Oste oporosis and Related Bone Diseases http://www.osteo.org 2. International Society for Clinical Densitometry http://www.iscd.org 3. National Osteoporosis Foundation http://www.nof.org Electronically Sign ed: Kvng Cutler MD at 8:25 EDT Tel [phone], Service support , CC: Jessica Corona DO Remedial Masseur: Signed 14-Feb-2018 MRCP Abdomen without Contrast Result: Comments: See Note; NOTES: [facility] Imaging Services [address] [place] [address] MRCP Abdomen without Contrast MR#: [id number] Acct: [id number] Name: DAKOTANEISHA Bae Rep #: [id number] : 1950 F 68 From: Vj Rajput MD PCP: Jessica Corona DO Status: REG CLI Study: MRCP Abdomen without Contrast Date of Exam: 02/14/18 Exam# [id number] Ordering Dr: Rigo Corona DO STUDY: MR CHOLANGIOPANCREATOGRAPHY (MRCP) REASON FOR EXAM: Female, 68 years old. Nausea, right neck and scapular pain. Symptoms off and on x 1 year, now more frequent. Gallbladder removed in 199 2 TECHNIQUE: Standard MRCP technique was utilized. COMPARISON: CT 09-01-12 FINDINGS: There are calcifications of the abdominal aorta. This is consistent for athero sclerotic disease. There is no abdominal aortic aneurysm. Bilateral peripelvic renal cysts. Gall Bladder: Gall bladder is surgically absent. Cystic duct: Normal with no demonstrated fixed filling defe ct. Intrahepatic ducts: Mild dilation of the intrahepatic ducts. Common hepatic duct: Normal with no demonstrated fixed filling defect, dilation or stricture. Common bile duct: There is dilation of t he common bile duct. A common bile duct stone is not seen. Diameter of 13 mm. Pancreatic duct: Normal with no demonstrated fixed filling defect, dilation or stricture. __ MRI/MRCP Abdomen without Contrast IMPRESSION: There is dilation of the common bile duct. A common bile duct stone is not seen. Electronically Signed: Vj Rajput MD 7 at 23:25 EDT , Service support , CC: Jessica Corona DO Remedial Masseur: Signed 03-Feb-2018 Abdomen Limited Result: Comments: See Note; NOTES: [facility] Imaging Services [address] [place] [address] Abdomen Limited MR#: [id number] Acct: [id number] Name: NEISHA TOBAR Rep #: [id number] OB: 1950 F 68 From: Kvng Cutler MD PCP: Jessica Corona DO Status: REG CLI Study: Abdomen Limited Date of Exam: 02/03/18 Exam# [id number] Ordering Dr: Jessica Corona DO STUDY: ABDOMINAL ULTRASOUND - RIGHT UPPER QUADRANT REASON FOR VISIT: Female, 68 years old. Epigastric pain. TECHNIQUE: Ultrasound evaluation of the right upper quadrant was performed with real-time and static romero-sc krupa imaging. TECHNICAL QUALITY: Adequate. COMPARISON: None. FINDINGS: Liver: The liver measures 15.5 cm. There is increased echogenicity consistent with fatty inf iltration. The bile ducts are within normal limits. There is hepatic color flow. The direction of portal flow is hepatopetal. There is no demonstrated mass lesion. Gallbladder: The patient is status po st cholecystectomy. Common Bile Duct (C.B.D.): The common bile duct measures 10 mm. Pancreas: Normal size of the head, body and tail of the pancreas. There is normal echogenicity of the pancreas. Ther e is no demonstrated pancreatic mass or cyst. Right Kidney: Normal size of the right kidney. The right kidney measures 9.7 cm x 4.2 cm x 5.0 cm. Normal renal cortex. The right cortex measures 1.3 cm. T here is no demonstrated renal mass or cyst. There is no right hydronephrosis. US/Abdomen Limited IMPRESSION: Fatty infiltration of the liver. Sta tus post cholecystectomy. Electronically Signed: Kvng Cutler MD at 13:52 EDT Tel [phone], Service support , CC: Jessica Corona DO Remedial Masseur: Signed 31-Jan-2018 SCREENING MAMM (CAD), BILAT Result: Comments: See Note; NOTES: [facility] Imaging Services [address] [place] [address] SCREENING MAMM (CAD), BILAT MR#: [id number] Acct: [id number] Name: NEISHA TOBAR Rep #: [id number] : 1950 F 67 From: Kvng Cutler MD PCP: Jessica Corona DO Status: REG CLI Study: SCREENING MAMM (CAD), BILAT Date of Exam: 01/31/18 Exam# [id number] Ordering Dr: Lidia Corona DO MAMMOGRAPHY - BILATERAL SCREENING REASON FOR EXAM: Female, 67 years old. Routine annual screening examination. PERTINENT HISTORY: Sisters with breast cancer. TECHNIQUE: Digital bilateral chago st stacy (3D mammographic acquisition) in the CC and MLO projections. 2-D mediolateral oblique (MLO) and craniocaudad (CC) views of both breasts were obtained. CAD: Full Field Digital Mammography with Co mputer Added Detection was performed. COMPARISON: Comparison is made with prior study dated June 14, 2017 and August 28, 2015. FINDINGS: Breast Composition: There a re scattered areas of fibroglandular density. There are no dominant masses or suspicious calcifications. There is a 4.9 mm x 6.0 mm well-defined nodule in the mid lateral portion of the right breast. A central notch is seen. This most likely represents a benign lymph node. No other significant abnormalities are identified. There has been no significant change since the prior study. HPBI/SCREENING MAMM (CAD), BILAT IMPRESSION: Stable bilateral screening mammogram. Yearly follow-up mammogram recommended. (A) _ ASSESSMENT CATEGORY: BIRADS Category 2: Benign. A letter regarding these results will be sent to the patient by the facility within 30 days. Approximately 10% of breast cancers are not detected by m ammography. A normal mammogram should not delay biopsy of a clinically suspicious abnormality. [id number] Electronically Signed: Kvng Cutler MD at 14:26 EDT Tel [phone], Service supp ort , CC: Jessica Corona DO Remedial Masseur: Signed 28-Aug-2015 Bilat Scrn Digital AND CAD Result: Comments: See Note; NOTES: [facility] Imaging Services [address] [place] [address] Breast Imaging Report MR#: [id number] Acct: [id number] Name: NEISHA TOBAR Rep # : [id number] : 1950 F 65 From: Kvng Cutler MD PCP: Jessica Corona DO Status: REG CLI Study: Bilat Scrn Digital AND CAD Date of Exam: 08/28/15 Exam# [id number] Ordering Dr: Raymond Corona DO MAMMOGRAPHY - BILATERAL SCREENING REASON FOR EXAM: Female, 65 years old. Routine annual screening examination. PERTINENT HISTORY: Sisters with breast cancer. TECHNIQUE: Digital exam ination. Mediolateral oblique (MLO) and craniocaudad (CC) views of both breasts were obtained. CAD: CAD was performed on this study. COMPARISON: Comparison is made with prior study dated June 11 and January 23, 2013. FINDINGS: Breast Composition: There are scattered areas of fibroglandular density. There are no dominant masses or suspicious calcificati ons. No other significant abnormalities are identified. There has been no significant change since the prior study. IMPRESSION: Stable bilateral screening mamm ogram. Yearly follow-up recommended. (A) ASSESSMENT CATEGORY: BIRADS Category 1: Negative. A letter regarding these results will be sent to the patient by the [facility] within 30 days. Approximately 10% of breast cancers are not detected by mammography. A normal mammogram should not delay biopsy of a clinically suspicious abnormality. Electronically Mirian d: Kvng Cutler MD at 8:05 EDT Tel [phone], Service support [phone], CC: Jessica Corona DO Remedial Masseur: Signed 03-Jun-2015 PT Discharge Summary Result: Comments: See Note; NOTES: [facility] Physical Therapy [facility] [address] [place] [address] Fax REHABILITATION SERVICES DISCHARGE SUMMARY MR#: [id number] Acct: [id number] Name: NEISHA TOBAR Rep #: [id number] : 1950 65 From: Sandy Nelson Referring Dr.: Jud Samaniego Status: DIS RCR Eval Date: Discharg e Date: 04/22/15 DATE OF SERVICE: REFERRING PHYSICIAN: Jud Samaniego. REFERRING DIAGNOSIS: Back pain. Marychuy was seen for the initial evaluation and then we would wait for approval for insurance. Once insurance approval came back, Marychuy decided that her back is fine and no therapy is needed at this time; therefore, I will be discharging her from our care. Thank you once again for the referra l of Neisha to our clinic. Sandy Nelson, PT T: NTS JOB: [id number] <Electronically signed by Sandy Nelson > 06/03/15 1726 CC: Signed 26-May-2015 Chest PA and Lateral Result: Comments: See Note; NOTES: [facility] Imaging Services [address] [place] [address] Radiology Report MR#: [id number] Acct: [id number] Name: NEISHA TOBAR Rep #: [id number] : 1950 F 65 From: Zoila Allen MD PCP: Jessica Corona DO Status: REG CLI Study: Chest PA and Lateral Date of Exam: 05/26/15 Exam# [id number] Ordering Dr: Jud Samaniego STUDY: X-RAY C HEST REASON FOR EXAM: Female, 65 years old. Bronchitis TECHNIQUE: PA and lateral views of the chest. COMPARISON: None. FINDINGS: There is a left midlung fi eld calcified granuloma. There is bilateral lower lobe scarring/atelectasis. There is no demonstrated pleural abnormality. Normal size heart. Normal mediastinum and chelsy. Normal visualized pulmonar y arteries. Normal visualized aortic arch and descending thoracic aorta. Normal visualized thoracic spine. There has been left humeral fixation. There is no demonstrated abnormality of the visualiz ed soft tissue structures of the upper abdomen. IMPRESSION: There is a left midlung field calcified granuloma. There is bilateral lower lobe scarring/atelectasi s. No radiographic evidence of bronchitis. Electronically Signed: Zoila Allen MD at 12:07 EDT , Service support [phone], RAD /Chest PA and Lateral IMPRESSION: There is a left midlung field calcified granuloma. There is bilateral lower lobe scarring/atelectasis. No radiographic evidence of bronchitis. Electronically Sig kyle: Zoila Allen MD at 12:07 EDT , Service support [phone], CC: Jud Corona DO Remedial Masseur: Signed 13-May-2015 Inital Evaluation - PT Result: Comments: See Note; NOTES: [facility] [address] [place] [address] Fax REHABILITATION SERVICES INITIAL EVALUATION MR#: [id number] Acct: [id number] Name: NEISHA TOBAR Rep #: [id number] : 1950 65 From: Sandy Nelson Referring Dr.: Jud Samaniego Status: REG RCR Insurance: [employer] PPO Eval Date: DATE OF SERVICE: 04/22/2015 REFERRING PHYSICIAN: Jud Samaniego. REFERRING DIAGNOSIS: Back pain. SUBJECTIVE: The patient is a 65-year-old female, who reports to clinic today with a diagnosis of back pain. Pat has a history of 2 discectomies in her lumbar spine in June 2005 and August 2005. Her past medical history consists of metal implants, hypertension as well. The patient owns 8 acres and usually she mows with a big tractor, but her big tractor had to be repaired, so she was using a smaller tractor and very uneven ground and 1-2 days later she could hardl y move throughout her shoulders, back. Everything was achy. Currently, her pain is down to 2/10. She was on prednisone. She denies any numbness and tingling, but does state that once in a while she do es get numbness and tingling down her left leg from her 2 discectomies that is normal for her. Legs have always been weak since the surgery. 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 The patient's Oswestry score is 20. Her G8978 is a CJ. Her G8979 is a CI. OBJECTIVE: The patient sits with rounded shoulders. When the patient does press up, she does have a lot of increased stiffness into extension. Forward bendin g her trunk range of motion is 75%, extension 75%, right and left side bending 75% of normal range of motion. The patient's manual muscle testing, hip flexion bilaterally 4-/5, knee extension bilatera lly 4/5, dorsiflexion bilaterally 5/5, plantar flexion bilaterally 5/5, knee flexion bilaterally 4/5, hip abduction bilaterally 4-/5, hip extension bilaterally 4-/5. She has a negative supine straigh t leg raise, positive hamstring tightness and a lot of increased stiffness with a prone press ups. ASSESSMENT: The patient presents with a diagnosis of back pain. PROBLEMS: 1. Increased pain with mowing and ADLs. 2. Decreased lower extremity strength. GOALS: 1. Independent with home exercise program. 2. Decrease pain to 0-10 with mowing and ADLs. 3. Increase lower extremity strength by ch lf of muscle grade. 4. Increase trunk range of motion to 100% in all planes. PLAN: Plan of care is reviewed by the patient. Received the patient's consent to treat. I plan on seeing the patient 2-3 times per week for 4 weeks for core stability, hip and lower extremity strengthening, postural exercises with a home exercise program and modalities as needed. Sandy Nelson, PT T: NTS JOB: [id number] <Electronically signed by Sandy Nelson > 05/13/15 0818 CC: Signed For Medicare only, by signing this I certify the plan of care. Physicians Signature Date 16-Apr-2015 L/S Spine Min 4 Views Result: Comments: See Note; NOTES: [facility] Imaging Services [address] [place] [address] Radiology Report MR#: [id number] Acct: [id number] Name: NEISHA TOBAR Rep #: [id number] : 1950 F 65 From: Rod Pollard DO PCP: Jessica Corona DO Status: REG CLI Study: L/S Spine Min 4 Views Date of Exam: 04/16/15 Exam# [id number] Ordering Dr: Jud Samaniego STUDY: X-RA Y - LUMBAR SPINE REASON FOR EXAM: Female, 65 years old. Lower back pain. TECHNIQUE: 5 view(s) of the lumbar spine were obtained. COMPARISON: None FINDINGS: Normal lumbar lordosis. There is no substantial scoliosis. There is retrolisthesis of L4 on L5 of 2 mm. The alignment is otherwise preserved. Normal vertebral bodies and endplates. There is multi-lev el degenerative disc disease with multi-level disc space narrowing. This is most marked at L4-5. There is no evidence of acute fracture or loss of vertebral axial height. There is no demonstrated spo ndylolysis of the pars interarticulares. The soft tissue structures are unremarkable. IMPRESSION: Degenerative changes of the spine, as detailed above. Elect ronically Signed: Rod Pollard DO at 16:48 EDT Tel [phone], Service support [phone], RAD/L/S Spine Min 4 Views IMPRESSION: Degenerative ch anges of the spine, as detailed above. Electronically Signed: Rod Pollard DO at 16:48 EDT Tel [phone], Service support [phone], CC: Jud Samaniego; Rigo Corona DO Remedial Masseur: Signed 11-Jun-2014 Bilat Scrn Digital & CAD Result: Comments: See Note; NOTES: [facility] Imaging Services [address] [place] [address] Breast Imaging Report MR#: [id number] Acct: [id number] Name: NEISHA TOBAR Rep #: [id number] : 1950 F 64 From: Ian Lamas MD PCP: Jessica Corona DO Status: REG CLI Exam# [id number] Ordering Dr: Jessica Corona DO MAMMOGRAPHY - BILATERAL SCREENING REASON FOR EX AM: Female, 64 years old. Routine annual screening examination. PERTINENT HISTORY: Screening mammogram family history of breast cancer patient's sister TECHNIQUE: Digital examination. Mediolateral oblique (MLO) and craniocaudad (CC) views of both breasts were obtained. CAD: CAD was performed on this study. COMPARISON: January 23, 2013 FINDINGS: The breast composition is composed of scattered areas of fibroglandular densities ranging from 25% to 50% of the total breast volume. There are no new dominant masses or suspicious calcifications. No other s ignificant abnormalities are identified. IMPRESSION: Stable bilateral screening mammogram. Yearly follow-up recommended. (A) ASSESSMENT CATEGORY: BIRADS Category 2: Benign finding(s). A letter regarding these results will be sent to the patient by the facility within 30 days. Approximately 10% of breast cancers are not detected by mammography. A normal mammogram should not delay biopsy of a clinically suspicious abnormality. Electronically Signed: Freddie Lamas MD at 17:24 EDT Tel , Ser vice support [phone], CC: Jessica Corona DO Remedial Masseur: Signed 29-Oct-2013 Gastric Emptying Study Result: Comments: See Note; NOTES: [facility] Imaging Services [address] [place] [address] Nuclear Medicine Report MR#: [id number] Acct: [id number] Name: NEISHA TOBAR Rep #: [id number] : 1950 F 63 From: Celestine Garza DO PCP: Status: REG CLI Study: Gastric Emptying Study Date of Exam: 10/29/13 Exam# [id number] Ordering Dr: Jessica Corona DO CLINICAL: 63 -year-old female with reported history of abdominal pain and nausea. SEMI-SOLID PHASE Tc SULFUR COLLOID GASTRIC EMPTYING STUDY COMPARISON: CT of the abdomen-pelvis report 09/01/12 FINDINGS: The patient was administered 1.0 mCi of Tc sulfur colloid mixed with oatmeal and consumed per os. Image acquisitions in the anterior-posterior projections were obtained for 60 minutes. There is prompt vis ualization of the stomach. There is no gastroesophageal reflux identified. The T1/2 linear fit was calculated to be 33.7 minutes, (Normal: 12-56 minutes). IMPRESSION: 1. NORMAL Tc sulfur colloid so lid phase (oatmeal) gastric emptying imaging examination. A. There is normal and preserved solid phase gastric emptying compared to normal controls with maintained first order kinetics throughout al l components of the examination. (Figueroa, J Nucl Med Tech 38: 186, 2010). Electronically Signed: Celestine Garza M.D. 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 Exercise History Comments: Light Status: Active Living Situation Comments: Lives with spouse Status: Active No Drug Use Status: Active Tobacco/Smoke Exposure Comments: Exposed to passive smoke 02/07/12 Status: Active Vital Signs Date Test Result Details :24 Comments: recheck 230/100 Temperature 98 f Comments: Method: Temporal Pulse 59 /min Comments: Pattern: Regular Respiration Rate 16 /min Comments: Pattern: Unlabored O2 SAT 96 % Comments: Room air BP Systolic 170 mm[Hg] Comments: Patient Position: Sitting; Cuff Location: Left Arm; Cuff Size: Standard BP Diastolic 110 mm[Hg] Comments: Patient Position: Sitting; Cuff Location: Left Arm; Cuff Size: Standard Weight 196 lb Height 64 in Body Mass Index Calculated 33.64 kg/m2 Body Surface Area Calculated 1.94 m2 :45 Temperature 97.7 f Comments: Method: Temporal Pulse 70 /min Comments: Pattern: Regular Respiration Rate 16 /min Comments: Pattern: Unlabored O2 SAT 96 % Comments: Room air BP Systolic 147 mm[Hg] Comments: Patient Position: Sitting; Cuff Location: Left Arm; Cuff Size: Standard BP Diastolic 90 mm[Hg] Comments: Patient Position: Sitting; Cuff Location: Left Arm; Cuff Size: Standard Weight 196 lb Height 64 in Body Mass Index Calculated 33.64 kg/m2 Body Surface Area Calculated 1.94 m2 :37 Temperature 97.8 f Comments: Method: Temporal Pulse 69 /min Comments: Pattern: Regular Respiration Rate 18 /min Comments: Pattern: Unlabored O2 SAT 96 % Comments: Room air BP Systolic 210 mm[Hg] Comments: Patient Position: Sitting; Cuff Location: Left Arm; Cuff Size: Standard BP Diastolic 100 mm[Hg] Comments: Patient Position: Sitting; Cuff Location: Left Arm; Cuff Size: Standard Weight 196 lb Height 64 in Body Mass Index Calculated 33.64 kg/m2 Body Surface Area Calculated 1.94 m2 [id number] Comments: recheck bp 143/115 but pt states she is in pain and will just check it at home along with her pulse Temperature 98.2 f Comments: Method: Temporal Pulse 67 /min Comments: Pattern: Regular Respiration Rate 16 /min Comments: Pattern: Unlabored O2 SAT 97 % Comments: Room air BP Systolic 162 mm[Hg] Comments: Patient Position: Sitting; Cuff Location: Left Arm; Cuff Size: Standard BP Diastolic 100 mm[Hg] Comments: Patient Position: Sitting; Cuff Location: Left Arm; Cuff Size: Standard Weight 196 lb Height 64 in Body Mass Index Calculated 33.64 kg/m2 Body Surface Area Calculated 1.94 m2 :15 Temperature 96.8 f Comments: Method: Temporal Pulse 68 /min Comments: Pattern: Regular Respiration Rate 18 /min Comments: Pattern: Unlabored O2 SAT 95 % Comments: Room air BP Systolic 166 mm[Hg] Comments: Patient Position: Sitting; Cuff Location: Right Arm; Cuff Size: Standard BP Diastolic 90 mm[Hg] Comments: Patient Position: Sitting; Cuff Location: Right Arm; Cuff Size: Standard Weight 207.375 lb Height 64 in Body Mass Index Calculated 35.6 kg/m2 Body Surface Area Calculated 1.99 m2 :30 Pulse 62 /min Comments: Pattern: Regular Respiration Rate 18 /min Comments: Pattern: Unlabored O2 SAT 97 % Comments: Room air BP Systolic 142 mm[Hg] Comments: Patient Position: Sitting; Cuff Location: Left Arm; Cuff Size: Large BP Diastolic 98 mm[Hg] Comments: Patient Position: Sitting; Cuff Location: Left Arm; Cuff Size: Large Weight 207.375 lb Height 64 in Body Mass Index Calculated 35.6 kg/m2 Body Surface Area Calculated 1.99 m2 :48 Temperature 96.6 f Pulse 61 /min Comments: Pattern: Regular Respiration Rate 17 /min Comments: Pattern: Unlabored O2 SAT 96 % Comments: Room air BP Systolic 138 mm[Hg] Comments: Patient Position: Sitting; Cuff Location: Left Arm; Cuff Size: Standard BP Diastolic 86 mm[Hg] Comments: Patient Position: Sitting; Cuff Location: Left Arm; Cuff Size: Standard Weight 207.375 lb Height 64 in Body Mass Index Calculated 35.6 kg/m2 Body Surface Area Calculated 1.99 m2 :28 Pulse 74 /min Comments: Pattern: Regular Respiration Rate 18 /min Comments: Pattern: Unlabored O2 SAT 97 % Comments: Room air BP Systolic 142 mm[Hg] Comments: Patient Position: Sitting; Cuff Location: Left Arm; Cuff Size: Large BP Diastolic 84 mm[Hg] Comments: Patient Position: Sitting; Cuff Location: Left Arm; Cuff Size: Large Weight 207.375 lb Height 64 in Body Mass Index Calculated 35.6 kg/m2 Body Surface Area Calculated 1.99 m2 :08 Comments: is who she will see. but her last appt was in [place] and had [facility] Pulse 70 /min Comments: Pattern: Regular Respiration Rate 18 /min Comments: Pattern: Unlabored O2 SAT 98 % Comments: Room air BP Systolic 136 mm[Hg] Comments: Patient Position: Sitting; Cuff Location: Left Arm; Cuff Size: Large BP Diastolic 78 mm[Hg] Comments: Patient Position: Sitting; Cuff Location: Left Arm; Cuff Size: Large Weight 207.375 lb Height 64 in Body Mass Index Calculated 35.6 kg/m2 Body Surface Area Calculated 1.99 m2 :27 Pulse 72 /min Comments: Pattern: Regular Respiration Rate 18 /min Comments: Pattern: Unlabored O2 SAT 98 % Comments: Room air BP Systolic 162 mm[Hg] Comments: Patient Position: Sitting; Cuff Location: Left Arm; Cuff Size: Large BP Diastolic 88 mm[Hg] Comments: Patient Position: Sitting; Cuff Location: Left Arm; Cuff Size: Large Weight 210.125 lb Height 64 in Body Mass Index Calculated 36.07 kg/m2 Body Surface Area Calculated 2 m2 :29 Pulse 66 /min Comments: Pattern: Regular Respiration Rate 18 /min Comments: Pattern: Unlabored O2 SAT 97 % Comments: Room air BP Systolic 128 mm[Hg] Comments: Patient Position: Sitting; Cuff Location: Left Arm; Cuff Size: Standard BP Diastolic 82 mm[Hg] Comments: Patient Position: Sitting; Cuff Location: Left Arm; Cuff Size: Standard Weight 209.125 lb Height 64 in Body Mass Index Calculated 35.9 kg/m2 Body Surface Area Calculated 1.99 m2 :05 Pulse 71 /min Comments: Pattern: Regular Respiration Rate 18 /min Comments: Pattern: Unlabored O2 SAT 97 % Comments: Room air BP Systolic 142 mm[Hg] Comments: Patient Position: Sitting; Cuff Location: Left Arm; Cuff Size: Large BP Diastolic 82 mm[Hg] Comments: Patient Position: Sitting; Cuff Location: Left Arm; Cuff Size: Large Weight 200 lb Height 64 in Body Mass Index Calculated 34.33 kg/m2 Body Surface Area Calculated 1.96 m2 :48 Pulse 69 /min Comments: Pattern: Regular Respiration Rate 18 /min Comments: Pattern: Unlabored O2 SAT 96 % Comments: Room air BP Systolic 144 mm[Hg] Comments: Patient Position: Sitting; Cuff Location: Left Arm; Cuff Size: Standard BP Diastolic 86 mm[Hg] Comments: Patient Position: Sitting; Cuff Location: Left Arm; Cuff Size: Standard Weight 205.125 lb Height 64 in Body Mass Index Calculated 35.21 kg/m2 Body Surface Area Calculated 1.98 m2 :38 Pulse 63 /min Comments: Pattern: Regular Respiration Rate 18 /min Comments: Pattern: Unlabored O2 SAT 96 % Comments: Room air BP Systolic 128 mm[Hg] Comments: Patient Position: Standing; Cuff Location: Left Arm; Cuff Size: Large BP Diastolic 84 mm[Hg] Comments: Patient Position: Standing; Cuff Location: Left Arm; Cuff Size: Large Weight 205.125 lb Height 64 in Body Mass Index Calculated 35.21 kg/m2 Body Surface Area Calculated 1.98 m2 :46 Pulse 70 /min Comments: Pattern: Regular Respiration Rate 18 /min Comments: Pattern: Unlabored O2 SAT 97 % Comments: Room air BP Systolic 142 mm[Hg] Comments: Patient Position: Sitting; Cuff Location: Left Arm; Cuff Size: Large BP Diastolic 88 mm[Hg] Comments: Patient Position: Sitting; Cuff Location: Left Arm; Cuff Size: Large Weight 199 lb Height 64 in Body Mass Index Calculated 34.16 kg/m2 Body Surface Area Calculated 1.95 m2 :56 Pulse 68 /min Comments: Pattern: Regular Respiration Rate 18 /min Comments: Pattern: Unlabored O2 SAT 98 % Comments: Room air BP Systolic 122 mm[Hg] Comments: Patient Position: Sitting; Cuff Location: Left Arm; Cuff Size: Large BP Diastolic 88 mm[Hg] Comments: Patient Position: Sitting; Cuff Location: Left Arm; Cuff Size: Large Weight 202 lb Height 64 in Body Mass Index Calculated 34.67 kg/m2 Body Surface Area Calculated 1.96 m2 :57 Temperature 98.7 f Comments: Method: Temporal Pulse 72 /min Comments: Pattern: Regular Respiration Rate 16 /min Comments: Pattern: Unlabored O2 SAT 98 % Comments: Room air BP Systolic 134 mm[Hg] Comments: Patient Position: Sitting; Cuff Location: Left Arm; Cuff Size: Large BP Diastolic 80 mm[Hg] Comments: Patient Position: Sitting; Cuff Location: Left Arm; Cuff Size: Large Weight 202 lb Height 64 in Body Mass Index Calculated 34.67 kg/m2 Body Surface Area Calculated 1.96 m2 :34 Temperature 97 f Pulse 78 /min Comments: Pattern: Regular Respiration Rate 16 /min Comments: Pattern: Unlabored O2 SAT 95 % Comments: Room air BP Systolic 132 mm[Hg] Comments: Patient Position: Sitting; Cuff Location: Left Arm; Cuff Size: Standard BP Diastolic 82 mm[Hg] Comments: Patient Position: Sitting; Cuff Location: Left Arm; Cuff Size: Standard Weight 208 lb Height 64 in Body Mass Index Calculated 35.7 kg/m2 Body Surface Area Calculated 1.99 m2 :55 Temperature 98.6 f Pulse 72 /min Comments: Pattern: Regular Respiration Rate 16 /min Comments: Pattern: Unlabored O2 SAT 96 % Comments: Room air BP Systolic 124 mm[Hg] Comments: Patient Position: Sitting; Cuff Location: Left Arm; Cuff Size: Standard BP Diastolic 74 mm[Hg] Comments: Patient Position: Sitting; Cuff Location: Left Arm; Cuff Size: Standard Weight 208 lb Height 64 in Body Mass Index Calculated 35.7 kg/m2 Body Surface Area Calculated 1.99 m2 :30 Pulse 66 /min Comments: Pattern: Regular Respiration Rate 18 /min Comments: Pattern: Unlabored O2 SAT 96 % Comments: Room air BP Systolic 140 mm[Hg] Comments: Patient Position: Sitting; Cuff Location: Left Arm; Cuff Size: Standard BP Diastolic 80 mm[Hg] Comments: Patient Position: Sitting; Cuff Location: Left Arm; Cuff Size: Standard Weight 208 lb Height 64 in Body Mass Index Calculated 35.7 kg/m2 Body Surface Area Calculated 1.99 m2 :53 Temperature 97.1 f Comments: Method: Temporal Pulse 72 /min Comments: Pattern: Regular Respiration Rate 18 /min Comments: Pattern: Unlabored O2 SAT 97 % Comments: Room air BP Systolic 126 mm[Hg] Comments: Patient Position: Sitting; Cuff Location: Left Arm; Cuff Size: Large BP Diastolic 84 mm[Hg] Comments: Patient Position: Sitting; Cuff Location: Left Arm; Cuff Size: Large Weight 207 lb Height 64 in Body Mass Index Calculated 35.53 kg/m2 Body Surface Area Calculated 1.98 m2 :35 Temperature 98.8 f Pulse 87 /min Comments: Pattern: Regular Respiration Rate 18 /min Comments: Pattern: Unlabored O2 SAT 95 % Comments: Room air BP Systolic 166 mm[Hg] Comments: Patient Position: Sitting; Cuff Location: Left Arm; Cuff Size: Standard BP Diastolic 100 mm[Hg] Comments: Patient Position: Sitting; Cuff Location: Left Arm; Cuff Size: Standard Weight 207 lb Height 64 in Body Mass Index Calculated 35.53 kg/m2 Body Surface Area Calculated 1.98 m2 :03 Temperature 97.8 f Pulse 69 /min Comments: Pattern: Regular Respiration Rate 16 /min Comments: Pattern: Unlabored O2 SAT 97 % Comments: Room air BP Systolic 140 mm[Hg] Comments: Patient Position: Sitting; Cuff Location: Left Arm; Cuff Size: Standard BP Diastolic 88 mm[Hg] Comments: Patient Position: Sitting; Cuff Location: Left Arm; Cuff Size: Standard Weight 209 lb Height 64 in Body Mass Index Calculated 35.87 kg/m2 Body Surface Area Calculated 1.99 m2 :54 Pulse 79 /min Comments: Pattern: Regular Respiration Rate 18 /min Comments: Pattern: Unlabored O2 SAT 96 % Comments: Room air BP Systolic 140 mm[Hg] Comments: Patient Position: Sitting; Cuff Location: Left Arm; Cuff Size: Large BP Diastolic 96 mm[Hg] Comments: Patient Position: Sitting; Cuff Location: Left Arm; Cuff Size: Large Weight 203 lb Height 64 in Body Mass Index Calculated 34.84 kg/m2 Body Surface Area Calculated 1.97 m2 :34 Temperature 97.5 f Comments: Method: Oral Pulse 63 /min Comments: Pattern: Regular Respiration Rate 18 /min Comments: Pattern: Unlabored O2 SAT 97 % Comments: Room air BP Systolic 142 mm[Hg] Comments: Patient Position: Sitting; Cuff Location: Left Arm; Cuff Size: Large BP Diastolic 82 mm[Hg] Comments: Patient Position: Sitting; Cuff Location: Left Arm; Cuff Size: Large Weight 203 lb Height 64 in Body Mass Index Calculated 34.84 kg/m2 Body Surface Area Calculated 1.97 m2 :15 Temperature 98 f Comments: Method: Oral Pulse 70 /min Comments: Pattern: Regular Respiration Rate 18 /min Comments: Pattern: Unlabored BP Systolic 120 mm[Hg] Comments: Patient Position: Sitting; Cuff Location: Left Arm; Cuff Size: Large BP Diastolic 78 mm[Hg] Comments: Patient Position: Sitting; Cuff Location: Left Arm; Cuff Size: Large Weight 203 lb Height 64 in Body Mass Index Calculated 34.84 kg/m2 Body Surface Area Calculated 1.97 m2 :01 Pulse 65 /min Comments: Pattern: Regular Respiration Rate 20 /min Comments: Pattern: Unlabored O2 SAT 97 % Comments: Room air BP Systolic 128 mm[Hg] Comments: Patient Position: Sitting; Cuff Location: Left Arm; Cuff Size: Large BP Diastolic 82 mm[Hg] Comments: Patient Position: Sitting; Cuff Location: Left Arm; Cuff Size: Large Weight 203.0625 lb Height 64 in Body Mass Index Calculated 34.86 kg/m2 Body Surface Area Calculated 1.97 m2 :22 Temperature 98.2 f Comments: Method: Tympanic Pulse 62 /min Comments: Pattern: Regular Respiration Rate 16 /min Comments: Pattern: Unlabored O2 SAT 96 % Comments: Room air BP Systolic 144 mm[Hg] Comments: Patient Position: Sitting; Cuff Location: Left Arm; Cuff Size: Large BP Diastolic 82 mm[Hg] Comments: Patient Position: Sitting; Cuff Location: Left Arm; Cuff Size: Large Weight 203.0625 lb Height 64 in Body Mass Index Calculated 34.86 kg/m2 Body Surface Area Calculated 1.97 m2 :58 Temperature 98.1 f Comments: Method: Oral Pulse 78 /min Comments: Pattern: Regular Respiration Rate 18 /min Comments: Pattern: Unlabored O2 SAT 98 % Comments: Room air BP Systolic 142 mm[Hg] Comments: Patient Position: Sitting; Cuff Location: Left Arm; Cuff Size: Standard BP Diastolic 84 mm[Hg] Comments: Patient Position: Sitting; Cuff Location: Left Arm; Cuff Size: Standard Weight 206 lb Height 64 in Body Mass Index Calculated 35.36 kg/m2 Body Surface Area Calculated 1.98 m2 :37 Temperature 97.9 f Comments: Method: Oral Pulse 70 /min Comments: Pattern: Regular Respiration Rate 18 /min Comments: Pattern: Unlabored O2 SAT 97 % Comments: Room air BP Systolic 132 mm[Hg] Comments: Patient Position: Sitting; Cuff Location: Left Arm; Cuff Size: Large BP Diastolic 82 mm[Hg] Comments: Patient Position: Sitting; Cuff Location: Left Arm; Cuff Size: Large Height 64 in :56 Comments: recheck BP 152/102 Pulse 60 /min Comments: Pattern: Regular Respiration Rate 18 /min Comments: Pattern: Unlabored BP Systolic 148 mm[Hg] Comments: Patient Position: Sitting; Cuff Location: Left Arm; Cuff Size: Large BP Diastolic 102 mm[Hg] Comments: Patient Position: Sitting; Cuff Location: Left Arm; Cuff Size: Large Height 64 in :03 Temperature 97.5 f Comments: Method: Oral Pulse 74 /min Comments: Pattern: Regular Respiration Rate 16 /min Comments: Pattern: Unlabored BP Systolic 150 mm[Hg] Comments: Patient Position: Sitting; Cuff Location: Left Arm; Cuff Size: Standard BP Diastolic 92 mm[Hg] Comments: Patient Position: Sitting; Cuff Location: Left Arm; Cuff Size: Standard Height 64 in :58 Temperature 95.9 f Pulse 62 /min Comments: Pattern: Regular Respiration Rate 16 /min Comments: Pattern: Unlabored BP Systolic 132 mm[Hg] Comments: Patient Position: Sitting; Cuff Location: Left Arm; Cuff Size: Standard BP Diastolic 88 mm[Hg] Comments: Patient Position: Sitting; Cuff Location: Left Arm; Cuff Size: Standard Height 64 in :05 Temperature 97.8 f Comments: Method: Oral Pulse 60 /min Comments: Pattern: Regular Respiration Rate 16 /min Comments: Pattern: Unlabored BP Systolic 128 mm[Hg] Comments: Patient Position: Sitting; Cuff Location: Left Arm; Cuff Size: Large BP Diastolic 82 mm[Hg] Comments: Patient Position: Sitting; Cuff Location: Left Arm; Cuff Size: Large Height 64 in :35 Pulse 64 /min Comments: Pattern: Regular Respiration Rate 16 /min Comments: Pattern: Unlabored BP Systolic 138 mm[Hg] Comments: Patient Position: Sitting; Cuff Location: Left Arm; Cuff Size: Large BP Diastolic 90 mm[Hg] Comments: Patient Position: Sitting; Cuff Location: Left Arm; Cuff Size: Large Height 64 in [id number] Pulse 60 /min Comments: Pattern: Regular Respiration Rate 20 /min Comments: Pattern: Unlabored BP Systolic 132 mm[Hg] Comments: Patient Position: Sitting; Cuff Location: Left Arm; Cuff Size: Large BP Diastolic 80 mm[Hg] Comments: Patient Position: Sitting; Cuff Location: Left Arm; Cuff Size: Large Height 64 in :15 Pulse 60 /min Comments: Pattern: Regular Respiration Rate 20 /min Comments: Pattern: Unlabored BP Systolic 142 mm[Hg] Comments: Patient Position: Sitting; Cuff Location: Left Arm; Cuff Size: Large BP Diastolic 90 mm[Hg] Comments: Patient Position: Sitting; Cuff Location: Left Arm; Cuff Size: Large Height 64 in :04 Temperature 98.2 f Comments: Method: Oral Pulse 64 /min Comments: Pattern: Regular Respiration Rate 20 /min Comments: Pattern: Unlabored BP Systolic 132 mm[Hg] Comments: Patient Position: Sitting; Cuff Location: Left Arm; Cuff Size: Large BP Diastolic 88 mm[Hg] Comments: Patient Position: Sitting; Cuff Location: Left Arm; Cuff Size: Large Height 64 in :39 Comments: refused wt Temperature 97.6 f Comments: Method: Oral Pulse 80 /min Comments: Pattern: Regular Respiration Rate 18 /min Comments: Pattern: Unlabored BP Systolic 138 mm[Hg] Comments: Patient Position: Sitting; Cuff Location: Left Arm; Cuff Size: Large BP Diastolic 80 mm[Hg] Comments: Patient Position: Sitting; Cuff Location: Left Arm; Cuff Size: Large Height 64 in :17 Temperature 97.2 f Comments: Method: Oral Pulse 62 /min Comments: Pattern: Regular Respiration Rate 17 /min Comments: Pattern: Unlabored BP Systolic 128 mm[Hg] Comments: Patient Position: Sitting; Cuff Location: Left Arm; Cuff Size: Standard BP Diastolic 78 mm[Hg] Comments: Patient Position: Sitting; Cuff Location: Left Arm; Cuff Size: Standard Weight 206.0625 lb Height 64 in Body Mass Index Calculated 35.37 kg/m2 Body Surface Area Calculated 1.98 m2 :10 Pulse 68 /min Comments: Pattern: Regular Respiration Rate 20 /min Comments: Pattern: Unlabored BP Systolic 142 mm[Hg] Comments: Patient Position: Sitting; Cuff Location: Left Arm; Cuff Size: Large BP Diastolic 80 mm[Hg] Comments: Patient Position: Sitting; Cuff Location: Left Arm; Cuff Size: Large Weight 206.0625 lb :14 Pulse 60 /min Comments: Pattern: Regular BP Systolic 138 mm[Hg] Comments: Patient Position: Sitting; Cuff Location: Right Arm; Cuff Size: Large BP Diastolic 84 mm[Hg] Comments: Patient Position: Sitting; Cuff Location: Right Arm; Cuff Size: Large Weight 206.0625 lb :36 Temperature 97.5 f Comments: Method: Oral Pulse 76 /min Comments: Pattern: Regular Respiration Rate 18 /min Comments: Pattern: Unlabored BP Systolic 142 mm[Hg] Comments: Patient Position: Sitting; Cuff Location: Left Arm; Cuff Size: Large BP Diastolic 96 mm[Hg] Comments: Patient Position: Sitting; Cuff Location: Left Arm; Cuff Size: Large Weight 206.0625 lb :01 Temperature 96.3 f Comments: Method: Oral Pulse 68 /min Comments: Pattern: Regular Respiration Rate 20 /min Comments: Pattern: Unlabored BP Systolic 140 mm[Hg] Comments: Patient Position: Sitting; Cuff Location: Left Arm; Cuff Size: Standard BP Diastolic 84 mm[Hg] Comments: Patient Position: Sitting; Cuff Location: Left Arm; Cuff Size: Standard :05 Temperature 96.6 f Comments: Method: Oral Pulse 74 /min Comments: Pattern: Regular Respiration Rate 17 /min Comments: Pattern: Unlabored BP Systolic 122 mm[Hg] Comments: Patient Position: Sitting; Cuff Location: Left Arm; Cuff Size: Standard BP Diastolic 82 mm[Hg] Comments: Patient Position: Sitting; Cuff Location: Left Arm; Cuff Size: Standard Weight 198 lb :49 Pulse 68 /min Comments: Pattern: Regular Respiration Rate 18 /min Comments: Pattern: Unlabored BP Systolic 120 mm[Hg] Comments: Patient Position: Sitting; Cuff Location: Left Arm; Cuff Size: Large BP Diastolic 84 mm[Hg] Comments: Patient Position: Sitting; Cuff Location: Left Arm; Cuff Size: Large :58 Pulse 74 /min Comments: Pattern: Regular Respiration Rate 18 /min Comments: Pattern: Unlabored BP Systolic 124 mm[Hg] Comments: Patient Position: Sitting; Cuff Location: Left Arm; Cuff Size: Large BP Diastolic 80 mm[Hg] Comments: Patient Position: Sitting; Cuff Location: Left Arm; Cuff Size: Large Weight 198 lb :28 Pulse 72 /min Comments: Pattern: Regular Respiration Rate 20 /min Comments: Pattern: Unlabored BP Systolic 128 mm[Hg] Comments: Patient Position: Sitting; Cuff Location: Left Arm; Cuff Size: Large BP Diastolic 84 mm[Hg] Comments: Patient Position: Sitting; Cuff Location: Left Arm; Cuff Size: Large Weight 198.1875 lb :40 Pulse 68 /min Comments: Pattern: Regular Respiration Rate 16 /min Comments: Pattern: Unlabored BP Systolic 124 mm[Hg] Comments: Patient Position: Sitting; Cuff Location: Left Arm; Cuff Size: Standard BP Diastolic 80 mm[Hg] Comments: Patient Position: Sitting; Cuff Location: Left Arm; Cuff Size: Standard :14 Temperature 98.6 f Comments: Method: Oral Pulse 64 /min Comments: Pattern: Regular Respiration Rate 20 /min Comments: Pattern: Unlabored BP Systolic 140 mm[Hg] Comments: Patient Position: Sitting; Cuff Location: Left Arm; Cuff Size: Large BP Diastolic 72 mm[Hg] Comments: Patient Position: Sitting; Cuff Location: Left Arm; Cuff Size: Large Weight 0 lb Height 0 in Head Circumference 0.00 cm :31 Pulse 60 /min Comments: Pattern: Regular Respiration Rate 18 /min Comments: Pattern: Unlabored BP Systolic 138 mm[Hg] Comments: Patient Position: Sitting; Cuff Location: Left Arm; Cuff Size: Large BP Diastolic 88 mm[Hg] Comments: Patient Position: Sitting; Cuff Location: Left Arm; Cuff Size: Large Weight 198.1875 lb Height 0 in Head Circumference 0.00 cm :34 Temperature 98.6 f Comments: Method: Oral Pulse 80 /min Comments: Pattern: Regular Respiration Rate 20 /min Comments: Pattern: Wheezing O2 SAT 93 % Comments: Room air BP Systolic 154 mm[Hg] Comments: Patient Position: Sitting; Cuff Location: Left Arm; Cuff Size: Large BP Diastolic 88 mm[Hg] Comments: Patient Position: Sitting; Cuff Location: Left Arm; Cuff Size: Large Weight 0 lb Height 0 in Head Circumference 0.00 cm :25 Pulse 64 /min Comments: Pattern: Regular Respiration Rate 20 /min Comments: Pattern: Unlabored BP Systolic 132 mm[Hg] Comments: Patient Position: Standing; Cuff Location: Left Arm; Cuff Size: Standard BP Diastolic 80 mm[Hg] Comments: Patient Position: Standing; Cuff Location: Left Arm; Cuff Size: Standard Weight 0 lb Height 0 in Head Circumference 0.00 cm :01 Temperature 97.7 f Comments: Method: Oral Pulse 70 /min Comments: Pattern: Regular Respiration Rate 20 /min Comments: Pattern: Unlabored BP Systolic 124 mm[Hg] Comments: Patient Position: Sitting; Cuff Location: Left Arm; Cuff Size: Standard BP Diastolic 80 mm[Hg] Comments: Patient Position: Sitting; Cuff Location: Left Arm; Cuff Size: Standard Weight 0 lb Height 0 in Head Circumference 0.00 cm :55 Temperature 97.7 f Comments: Method: Oral Pulse 70 /min Comments: Pattern: Regular Respiration Rate 20 /min Comments: Pattern: Unlabored BP Systolic 124 mm[Hg] Comments: Patient Position: Sitting; Cuff Location: Left Arm; Cuff Size: Standard BP Diastolic 78 mm[Hg] Comments: Patient Position: Sitting; Cuff Location: Left Arm; Cuff Size: Standard Weight 0 lb Height 0 in Head Circumference 0.00 cm :38 Temperature 97.7 f Comments: Method: Oral Pulse 70 /min Comments: Pattern: Regular Respiration Rate 20 /min Comments: Pattern: Unlabored BP Systolic 130 mm[Hg] Comments: Patient Position: Sitting; Cuff Location: Left Arm; Cuff Size: Standard BP Diastolic 80 mm[Hg] Comments: Patient Position: Sitting; Cuff Location: Left Arm; Cuff Size: Standard Weight 0 lb Height 0 in Head Circumference 0.00 cm :22 Temperature 98.6 f Comments: Method: Undefined Pulse 76 /min Comments: Pattern: Regular Respiration Rate 16 /min Comments: Pattern: Undefined BP Systolic 118 mm[Hg] Comments: Patient Position: Sitting; Cuff Location: Left Arm; Cuff Size: Standard BP Diastolic 70 mm[Hg] Comments: Patient Position: Sitting; Cuff Location: Left Arm; Cuff Size: Standard Weight 0 lb Height 0 in Head Circumference 0.00 cm Results Date Description Value Details :38 Basic Metabolic Profile (BMP) Comments: [facility] [id number] [place], [place], [id number] GAP 7 (Normal) Range: 5-15 CO2 27.0 mmol/L (Normal) Range: 21.0-32.0 CL 105 mmol/L (Normal) Range: 98-107 K 3.7 mmol/L (Normal) Range: 3.5-5.1 NA 139 mmol/L (Normal) Range: 136-145 CA 9.1 mg/dL (Normal) Range: 8.5-10.1 BUN/CRE 19.0 {RATIO} (Normal) Range: 10-20 Estimated CRCL 45.20 ml/min (Normal) EST GFR - AA 100 mL/min (Normal) Comments: GFR Calc EST GFR 83 mL/min (Normal) Comments: Non- GFR Calc CREAT,SERUM 0.74 mg/dL (Normal) Range: 0.55-1.02 Comments: The validity of the calculated GFR AND GFRAA in patients over70 years has not been determined. Clinical correlation isessential. BUN 14 mg/dL (Normal) Range: 7-18 GLU 110 mg/dL (Abnormal) Range: 74-106 Comments: Fasting Glucose result from 100 to 125 mg/dLsuggests IMPAIRED HOMEOSTASIS per A.D.A. criteria.Please note revised GLUCOSE reference range sormaktty84/02/2018. :38 CBC W/Diff, Automated Comments: [facility] [address] [place], [place], [id number] Absolute Lymph 1.21 {X10_3/ul} (Normal) Range: 0.83-4.51 Absolute Neut 3.9 {X10_3/uL} (Normal) Range: 2.0-7.7 IM GRAN % 0.200 % (Normal) Range: 0.0-0.9 Comments: IG% - Immature Granulocytes (promyelocytes, myelocytes andmetamyelocytes) > 1% indicates that a LEFT SHIFT is Present. BASO% 0.5 % (Normal) Range: 0-1 EO% 5.5 % (Abnormal) Range: 0-5 MONO% 6.6 % (Normal) Range: 0-10 LY% 20.9 % (Normal) Range: 19-41 NEUT% 66.3 % (Normal) Range: 47-70 MPV 9.4 fL (Normal) Range: 6.2-12.0 PLT 251 K/mm3 (Normal) Range: 150-450 RDW SD 45.5 fL (Abnormal) Range: 35.1-43.9 RDW CV 13.3 % (Normal) Range: 11.6-14.6 MCHC 32.3 {g/gl} (Normal) Range: 32-36 MCH 30.4 pg (Normal) Range: 27.0-32.0 MCV 94.2 fL (Normal) Range: 81-99 HCT 44.0 % (Normal) Range: 37-47 HGB 14.2 g/dL (Normal) Range: 12.0-15.0 RBC 4.67 {M/mm3} (Normal) Range: 4.2-5.4 WBC 5.8 K/mm3 (Normal) Range: 4.4-11.0 75-Umm-144907:49 Basic Metabolic Profile (BMP) Comments: [facility] [address] [place], [address] GAP 5 (Normal) Range: 5-15 CO2 30.0 mmol/L (Normal) Range: 21.0-32.0 CL 105 mmol/L (Normal) Range: 98-107 K 5.3 mmol/L (Abnormal) Range: 3.5-5.1 NA 140 mmol/L (Normal) Range: 136-145 CA 9.2 mg/dL (Normal) Range: 8.5-10.1 BUN/CRE 21.2 {RATIO} (Abnormal) Range: 10-20 EST GFR - AA 124 mL/min (Normal) Comments: GFR Calc EST GFR 102 mL/min (Normal) Comments: Non- GFR Calc CREAT,SERUM 0.61 mg/dL (Normal) Range: 0.55-1.02 Comments: The validity of the calculated GFR AND GFRAA in patients over70 years has not been determined. Clinical correlation isessential. BUN 13 mg/dL (Normal) Range: 7-18 GLU 101 mg/dL (Normal) Range: 74-106 Comments: Fasting Glucose result from 100 to 125 mg/dLsuggests IMPAIRED HOMEOSTASIS per A.D.A. criteria.Please note revised GLUCOSE reference range gsorocdcc87/02/2018. 7-Pqv-343968:47 URINE KVNG CULTURE-HE COL Comments: PERFORMED BY: [facility] [facility] [id number] Information: [id number] SRC:UR COUNT ([id number]) Antimicrobial MIHEAD (Normal) Comments: S = Susceptible; I = Intermediate; R = Resistant P = Positive; N = Negative MICS are expressed in micrograms per mL Antibiotic RSLT#1 RSLT#2 RS Susceptibility LT#3 RSLT#4Amoxicillin/Clavulanic Acid SAmpicillin RCefazolin RCefepime SCeftriaxone SCefuroxime SCiprofloxacin SErtapenem SGentamicin SImipenem SLevofloxacin SMeropenem SNitrof urantoin STetracycline STobramycin STrimethoprim/Sulfa S Result 1 Klebsiella oxytoca Comments: 10,000-25,000 colony forming units per mL (Abnormal) Urine Final report Culture,Comprehensive (Abnormal) 21-Jun-20188:17 Urinalysis, Office ([id number]) UA - LEUKOCYTE ESTERASE Negative (Normal) UA - NITRITE Negative (Normal) URINE UROBILINGN HE TIMED Normal mg/dL (Normal) UA - PROTEIN Negative mg/dL (Normal) UA - PH 7.5 (Normal) UA - BLOOD Negative (Normal) UA - SPECIFIC GRAVITY 1.010 (Normal) UA - KETONES Negative mg/dL (Normal) UA - BILIRUBIN Negative (Normal) UA - GLUCOSE Negative (Normal) 96-Nfa-12855:39 CBC, PLATELETS & AUT DIFF Comments: PATIENT NOT FASTINGPERFORMED BY: [facility] CenterGtirup9[address] [facility] [id number] ([id number]) Immature Grans (Abs) 0.0 {x10E3/uL} (Normal) Range: 0.0-0.1 Immature Granulocytes 0 % (Normal) Baso (Absolute) 0.0 {x10E3/uL} (Normal) Range: 0.0-0.2 Eos (Absolute) 0.4 {x10E3/uL} (Normal) Range: 0.0-0.4 Monocytes(Absolute) 0.4 {x10E3/uL} (Normal) Range: 0.1-0.9 Lymphs (Absolute) 1.2 {x10E3/uL} (Normal) Range: 0.7-3.1 Neutrophils (Absolute) 2.8 {x10E3/uL} (Normal) Range: 1.4-7.0 Basos 1 % (Normal) Eos 7 % (Normal) Monocytes 9 % (Normal) Lymphs 24 % (Normal) Neutrophils 59 % (Normal) Platelets 267 {x10E3/uL} (Normal) Range: 150-379 RDW 14.1 % (Normal) Range: 12.3-15.4 MCHC 32.9 g/dL (Normal) Range: 31.5-35.7 MCH 31.1 pg (Normal) Range: 26.6-33.0 MCV 95 fL (Normal) Range: 79-97 Hematocrit 42.0 % (Normal) Range: 34.0-46.6 Hemoglobin 13.8 g/dL (Normal) Range: 11.1-15.9 RBC 4.44 {x10E6/uL} (Normal) Range: 3.77-5.28 WBC 4.8 {x10E3/uL} (Normal) Range: 3.4-10.8 66-Xzd-12276:39 C-REACT PROT HIGH SENS(hsCRP) Comments: PATIENT NOT FASTINGPERFORMED BY: [facility] [facility] [id number] ([id number]) C-Reactive Protein, Cardiac 2.22 mg/L (Normal) Range: 0.00-3.00 Comments: Relative Risk for Future Cardiovascular Event Low <1.00 Average 1.00 - 3.00 High >3.00 :39 ESR-F (SED RATE ERYTHROCYTE - Comments: PATIENT NOT FASTINGPERFORMED BY: [facility] [facility] [id number] FEMALE) ([id number]) Sedimentation Rate-Westergren 9 mm/h (Normal) Range: 0-40 :39 LDH (LD) (LACTATE DEHYDROGENASE) Comments: PATIENT NOT FASTINGPERFORMED BY: [facility] [facility] [id number] ([id number]) LDH 209 [iU]/L (Normal) Range: 119-226 Hemoglobin A1c 5.5 % (Normal) Comments: PATIENT NOT FASTINGPERFORMED BY: [facility]IS [facility] Niupwj8[address] [facility] [id number] 3:06 Range: 4.8-5.6 Comments: . Pre-diabetes: 5.7 - 6.4 Diabetes: >6.4 Glycemic control for adults with diabetes: <7.0 Written Authorization WAR (Normal) Comments: PATIENT NOT FASTINGPERFORMED BY: [facility] Oqaoqz3896 [place] [facility] [id number] 3:06 Comments: Written Authorization Received.Authorization received from ANNETTE POWELL LPN 04-12-3638Viajzk by Lidia Reddy 30-Dju-234834:06 TSH ([id number]) Comments: PATIENT NOT FASTINGPERFORMED BY: [facility] Wtbeay5385 [facility] [id number] TSH 2.370 {uIU/mL} (Normal) Range: 0.450-4.500 40-Lsj-780710:06 METABOLIC PANEL, COMPREHENSIVE Comments: PATIENT NOT FASTINGPERFORMED BY: [facility] Biwfmk5258 [facility] [id number] ([id number]) ALT (SGPT) 19 [iU]/L (Normal) Range: 0-32 AST (SGOT) 24 [iU]/L (Normal) Range: 0-40 Alkaline Phosphatase 66 [iU]/L (Normal) Range: 39-117 Bilirubin, Total 0.8 mg/dL (Normal) Range: 0.0-1.2 A/G Ratio 1.7 (Normal) Range: 1.2-2.2 Globulin, Total 2.6 g/dL (Normal) Range: 1.5-4.5 Albumin 4.5 g/dL (Normal) Range: 3.5-4.8 Protein, Total 7.1 g/dL (Normal) Range: 6.0-8.5 Calcium 9.8 mg/dL (Normal) Range: 8.7-10.3 Carbon Dioxide, Total 24 mmol/L (Normal) Range: 20-29 Comments: Please note reference interval change Chloride 103 mmol/L (Normal) Range: 96-106 Potassium 5.0 mmol/L (Normal) Range: 3.5-5.2 Sodium 142 mmol/L (Normal) Range: 134-144 BUN/Creatinine Ratio 22 (Normal) Range: 12-28 eGFR If Africn Am 108 mL/min/1.73 (Normal) eGFR If NonAfricn Am 94 mL/min/1.73 (Normal) Creatinine 0.58 mg/dL (Normal) Range: 0.57-1.00 BUN 13 mg/dL (Normal) Range: 8-27 Glucose 102 mg/dL (Abnormal) Range: 65-99 25-Ucw-517404:06 CBC W/AUTO DIFF WBC ([id number]) Comments: PATIENT NOT FASTINGPERFORMED BY: [facility]CoChristian [facility] CenterHiqljo6576 [facility] [id number] Immature Grans (Abs) 0.0 {x10E3/uL} (Normal) Range: 0.0-0.1 Immature Granulocytes 0 % (Normal) Baso (Absolute) 0.0 {x10E3/uL} (Normal) Range: 0.0-0.2 Eos (Absolute) 0.4 {x10E3/uL} (Normal) Range: 0.0-0.4 Monocytes(Absolute) 0.5 {x10E3/uL} (Normal) Range: 0.1-0.9 Lymphs (Absolute) 1.5 {x10E3/uL} (Normal) Range: 0.7-3.1 Neutrophils (Absolute) 4.1 {x10E3/uL} (Normal) Range: 1.4-7.0 Basos 0 % (Normal) Eos 6 % (Normal) Monocytes 7 % (Normal) Lymphs 23 % (Normal) Neutrophils 64 % (Normal) Platelets 252 {x10E3/uL} (Normal) Range: 150-379 RDW 13.8 % (Normal) Range: 12.3-15.4 MCHC 32.6 g/dL (Normal) Range: 31.5-35.7 MCH 30.5 pg (Normal) Range: 26.6-33.0 MCV 94 fL (Normal) Range: 79-97 Hematocrit 43.2 % (Normal) Range: 34.0-46.6 Hemoglobin 14.1 g/dL (Normal) Range: 11.1-15.9 RBC 4.62 {x10E6/uL} (Normal) Range: 3.77-5.28 WBC 6.4 {x10E3/uL} (Normal) Range: 3.4-10.8 :56 Free T3 Comments: [facility] [address] [place], [place], [id number] FREE T3 2.7 pg/mL (Normal) Range: 2.18-3.98 :56 Lipid Profile Comments: [facility] [address] [place], [place], [id number] VLDL 34 mg/dL (Normal) Range: 5-40 LDL 204 mg/dL (Abnormal) Range: 0-130 HDL 62 mg/dL (Normal) Comments: The drugs N-Acetylcysteine and Metamizole may falselydepress this assay. Reference Range HDL <40 mg/dL Low HDL Cholesterol HDL >or= 60 mg/dL High HDL Cholesterol TRIG 168 mg/dL (Normal) Comments: The drugs N-Acetylcysteine and Metamizole may falselydepress this assay.Serum Triglycerides Reference Interval Normal <150 mg/dL Borderline high 150 - 199 mg/dL High 200 - 499 mg/dL Very High > or = 500 mg/dL CHOL 300 mg/dL (Abnormal) Comments: <200 mg/dL Desirable 200-240 mg/dL Borderline >240 mg/dL High Risk :56 Liver Profile Comments: [facility] [address] [place], [place], [id number] ; ov 03/20 D BILI 0.12 mg/dL (Normal) Range: 0.00-0.30 T BILI 0.50 mg/dL (Normal) Range: 0.20-1.00 ALT 24 U/L (Normal) Range: 13-56 ALK P 67 U/L (Normal) Range: 45-117 AST 19 U/L (Normal) Range: 15-37 GLOB 3.7 g/dL (Normal) Range: 2.2-4.2 ALB 3.8 g/dL (Normal) Range: 3.2-5.0 T PROT 7.5 g/dL (Normal) Range: 6.4-8.2 :56 T4 Free Direct Comments: [facility] [address]kgpmju[address]is[address] [place], [address] T4 FREE DIRECT 0.97 ng/dL (Normal) Range: 0.76-1.46 35-Pma-15319:56 Thyroid Stim Hormone (TSH) Comments: [facility] [address]yk[address] [place], [address] TSH 3.42 {uIU/mL} (Normal) Range: 0.358-3.74 9-Ysw-917764:52 GGTP 30 U/L (Normal) Comments: [facility] [address] [place], [address] Range: 5-55 2-Tcl-614206:52 Liver Profile Comments: [facility] Umqtgiwuhz6[address] [place], [address] D BILI 0.15 mg/dL (Normal) Range: 0.00-0.30 T BILI 1.10 mg/dL (Abnormal) Range: 0.20-1.00 ALT 31 U/L (Normal) Range: 12-78 ALK P 61 U/L (Normal) Range: 45-117 AST 21 U/L (Normal) Range: 15-37 GLOB 3.8 g/dL (Normal) Range: 2.2-4.2 ALB 3.8 g/dL (Normal) Range: 3.4-5.0 Comments: Please note revised Albumin AND Globulin reference rangeeffective 2017. T PROT 7.6 g/dL (Normal) Range: 6.4-8.2 9-Vap-101009:36 Bilirubin, Direct Comments: LIVER AND GGTP FOR [facility] [address]rsudsma[address] [place], [address] D BILI 0.14 mg/dL (Normal) Range: 0.00-0.30 2-Oye-087646:36 CBC W/Diff, Automated Comments: LIVER AND GGTP FOR [facility] [address]ks[address]mf[address] [place], [address] Absolute Lymph 1.45 {X10_3/ul} (Normal) Range: 0.83-4.51 Absolute Neut 4.0 {X10_3/uL} (Normal) Range: 2.0-7.7 IM GRAN % 0.300 % (Normal) Range: 0.0-0.9 Comments: IG% - Immature Granulocytes (promyelocytes, myelocytes andmetamyelocytes) > 1% indicates that a LEFT SHIFT is Present. BASO% 0.3 % (Normal) Range: 0-1 EO% 6.1 % (Abnormal) Range: 0-5 MONO% 8.5 % (Normal) Range: 0-10 LY% 22.7 % (Normal) Range: 19-41 NEUT% 62.1 % (Normal) Range: 47-70 MPV 9.8 fL (Normal) Range: 6.2-12.0 PLT 235 K/mm3 (Normal) Range: 150-450 RDW SD 47.2 fL (Abnormal) Range: 35.1-43.9 RDW CV 13.5 % (Normal) Range: 11.6-14.6 MCHC 31.8 {g/gl} (Abnormal) Range: 32-36 MCH 30.3 pg (Normal) Range: 27.0-32.0 MCV 95.5 fL (Normal) Range: 81-99 HCT 44.7 % (Normal) Range: 37-47 HGB 14.2 g/dL (Normal) Range: 12.0-15.0 RBC 4.68 {M/mm3} (Normal) Range: 4.2-5.4 WBC 6.4 K/mm3 (Normal) Range: 4.4-11.0 2-Crq-998233:36 Comprehensive Metabolic Profil Comments: LIVER AND GGTP FOR [facility] REST FOR [facility] [address] [place], [address] GAP 9 (Normal) Range: 5-15 CO2 27.0 mmol/L (Normal) Range: 21.0-32.0 CL 104 mmol/L (Normal) Range: 98-107 K 3.8 mmol/L (Normal) Range: 3.5-5.1 NA 140 mmol/L (Normal) Range: 136-145 T BILI 0.70 mg/dL (Normal) Range: 0.20-1.00 ALT 25 U/L (Normal) Range: 12-78 ALK P 65 U/L (Normal) Range: 45-117 AST 16 U/L (Normal) Range: 15-37 CA 9.3 mg/dL (Normal) Range: 8.5-10.1 A/G 1.1 {RATIO} (Normal) Range: 0.9-2.4 GLOB 3.7 g/dL (Normal) Range: 2.2-4.2 ALB 3.9 g/dL (Normal) Range: 3.4-5.0 Comments: Please note revised Albumin AND Globulin reference rangeeffective 2017. T PROT 7.6 g/dL (Normal) Range: 6.4-8.2 BUN/CRE 21.0 {RATIO} (Abnormal) Range: 10-20 EST GFR - AA 113 mL/min (Normal) Comments: GFR Calc EST GFR 93 mL/min (Normal) Comments: Non- GFR Calc CREAT,SERUM 0.67 mg/dL (Normal) Range: 0.55-1.02 Comments: The validity of the calculated GFR AND GFRAA in patients over70 years has not been determined. Clinical correlation isessential. BUN 14 mg/dL (Normal) Range: 7-18 GLU 91 mg/dL (Normal) Range: 70-110 1-Uop-721602:36 GGTP 22 U/L (Normal) Comments: LIVER AND GGTP FOR [facility] Qjqmpyxsdq7607 [facility] [place], [place], [id number] Range: 5-55 4-Bkk-777107:36 Lipid Profile Comments: LIVER AND GGTP FOR [facility] Qsetwbpwkv8243 [place], [place], [phone] VLDL 56 mg/dL (Abnormal) Range: 5-40 LDL 218 mg/dL (Abnormal) Range: 0-130 HDL 64 mg/dL (Normal) Comments: The drugs N-Acetylcysteine and Metamizole may falselydepress this assay. Reference Range HDL <40 mg/dL Low HDL Cholesterol HDL >or= 60 mg/dL High HDL Cholesterol TRIG 278 mg/dL (Abnormal) Comments: The drugs N-Acetylcysteine and Metamizole may falselydepress this assay.Serum Triglycerides Reference Interval Normal <150 mg/dL Borderline high 150 - 199 mg/dL High 200 - 499 mg/dL Very High > or = 500 mg/dL CHOL 338 mg/dL (Abnormal) Comments: <200 mg/dL Desirable 200-240 mg/dL Borderline >240 mg/dL High Risk :36 Microalb:Creat Ratio,Random UR Comments: LIVER AND GGTP FOR [facility] [address]bk[address] [place], [place], [id number] MALB:CREAT 38.1 {mg/g_CRE} (Abnormal) MICROALBUMIN,UR 43.8 mg/L (Normal) UR CREAT 115.00 mg/dL (Normal) :36 Thyroid Stim Hormone (TSH) Comments: LIVER AND GGTP FOR [facility] Amejfqhhzi[address] [place], [place], [phone] TSH 4.13 {uIU/mL} (Abnormal) Range: 0.358-3.74 :36 Urinalysis, Complete Comments: LIVER AND GGTP FOR [facility] was Urine Obtained? [facility] Cxbaycngoq9[address] [place], [place], [id number] HYALINE CAST 0-5 SEEN {/lpf} Range: 0-5 (Normal) MUCUS, URINE RARE {/hpf} (Normal) BACTERIA 0 SEEN {/hpf} (Normal) SQUAM EPI 0-5 SEEN {/hpf} Range: 5-10 (Normal) RBC-UA 0 SEEN {/hpf} Range: 0-5 (Normal) WBC 0-5 SEEN {/hpf} Range: 0-5 (Normal) LEUK ESTERASE Negative /ul (Normal) OCCULT BLOOD-UR Negative /ul (Normal) NITRITE UR Negative (Normal) UROBILI Normal mg/dL (Normal) PROT DIPSTX Negative mg/dL (Normal) pH UR 7.0 (Normal) Range: 5.0 - 8.0 SP.GR. DIPSTX 1.015 (Normal) Range: 1.002-1.030 KETONE UR Negative mg/dL (Normal) BILIRUBIN URINE Negative mg/dL (Normal) GLUCOSE, UR Normal mg/dL (Normal) CLARITY Clear (Normal) COLOR Yellow (Normal) 10-Feb-2016 COLON BIOPSY (CHOOSE SITE) See Note (Normal) Comments: [facility] Dbaspmpdds3391 [place], [address] 0:00 Comments: Patient: NEISHA TOBAR : 1950 (66/F) Acct Num: [id number] Phys: Steve Hurt Unit Num: [id number] Loc: LABSPEC Specimen: [id number] Received: 02/11/16 - 0754 Spec Type: COLON BX TISSUES TISSUES: GROSS DESCRIPTION Received is one container labeled with the patient name and designated biopsy polyp right colon. The specimen consists of multiple irre gular fragments of light ramirez soft tissue that in aggregate measure 0.2 x 0.1 x 0.1 cm. The specimen is totally submitted in one cassette. / AM:chris 02/10/16 TC:5 CPT:27521 HEADER OPERATION: Colon oscopy with biopsy PRE-OP DIAGNOSIS: High-risk screen/polyp TISSUE SUBMITTED: Biopsy, polyp, right colon - rule out adenoma MICROSCOPIC DESCRIPTION Slides are reviewed. MICROSCOPIC DIAGNOS IS Right colon polyp, biopsy: Hyperplastic polyp. AM:crow 02/11/16 Signed [facility] 02/11/16 <signature on file> C difficile Toxins A+B, Negative (Normal) Comments: PATIENT NOT FASTINGPERFORMED BY: [facility] Crjktw0259 [place] [facility] [id number] 3:19 EIA Cryptosporidium EIA Negative (Normal) Comments: PATIENT NOT FASTINGPERFORMED BY: [facility] Aajnmn1348 [place] [facility] [id number] 3:19 4-Vtm-592060:19 Giardia, EIA, Ova/Parasite Comments: PATIENT NOT FASTINGPERFORMED BY: [facility] Hmnjbx3213 [facility] [id number] Giardia lamblia Ag, Negative (Normal) EIA Result 1 NOCP (Normal) Comments: No ova, cysts, or parasites seen. Ova + Parasite Exam Final report Comments: These results were obtained using wet preparation(s) and trichromestained smear. This test does not include testing for Cryptosporidiumparvum, Cyclospora, or Microsporidia. (Normal) : Occult Blood, Fecal, Negative (Normal) Comments: PATIENT NOT FASTINGPERFORMED BY: [facility] [facility] [id number] 19 IA :19 Stool Culture Comments: PATIENT NOT FASTINGPERFORMED BY: [facility] Fhzczc3799 [facility] [id number] Information: SRC:ST STOOL E coli Shiga Toxin EIA Negative (Normal) Result 1 NCI (Normal) Comments: No Campylobacter species isolated. Campylobacter Culture Final report (Normal) Result 1 NSS (Normal) Comments: No Salmonella or Shigella recovered. Salmonella/Shigella Screen Final report (Normal) :19 White Blood Cells (WBC), Comments: PATIENT NOT FASTINGPERFORMED BY: [facility] Zdniyc9673 [facility] [id number] Stool Result 1 NWBC (Normal) Comments: No white blood cells seen. White Blood Cells (WBC), Final report (Normal) Stool :54 CBC W/AUTO DIFF WBC Comments: PATIENT NOT FASTINGPERFORMED BY: [facility] [facility] [id number] Information: [id number] ([id number]) Immature Grans (Abs) 0.0 {x10E3/uL} (Normal) Range: 0.0-0.1 Immature Granulocytes 0 % (Normal) Baso (Absolute) 0.0 {x10E3/uL} (Normal) Range: 0.0-0.2 Eos (Absolute) 0.3 {x10E3/uL} (Normal) Range: 0.0-0.4 Monocytes(Absolute) 0.4 {x10E3/uL} (Normal) Range: 0.1-0.9 Lymphs (Absolute) 1.5 {x10E3/uL} (Normal) Range: 0.7-3.1 Neutrophils (Absolute) 3.2 {x10E3/uL} (Normal) Range: 1.4-7.0 Basos 0 % (Normal) Eos 6 % (Normal) Monocytes 8 % (Normal) Lymphs 27 % (Normal) Neutrophils 59 % (Normal) Platelets 279 {x10E3/uL} (Normal) Range: 150-379 RDW 13.4 % (Normal) Range: 12.3-15.4 MCHC 32.8 g/dL (Normal) Range: 31.5-35.7 MCH 30.1 pg (Normal) Range: 26.6-33.0 MCV 92 fL (Normal) Range: 79-97 Hematocrit 43.0 % (Normal) Range: 34.0-46.6 Hemoglobin 14.1 g/dL (Normal) Range: 11.1-15.9 RBC 4.68 {x10E6/uL} (Normal) Range: 3.77-5.28 WBC 5.4 {x10E3/uL} (Normal) Range: 3.4-10.8 :54 METABOLIC PANEL, COMPREHENSIVE Comments: PATIENT NOT FASTINGPERFORMED BY: [facility] CenterSgibpc5264 [facility] [id number] ([id number]) ALT (SGPT) 19 [iU]/L (Normal) Range: 0-32 AST (SGOT) 23 [iU]/L (Normal) Range: 0-40 Alkaline Phosphatase, S 65 [iU]/L (Normal) Range: 39-117 Bilirubin, Total 0.6 mg/dL (Normal) Range: 0.0-1.2 A/G Ratio 2.0 (Normal) Range: 1.1-2.5 Globulin, Total 2.3 g/dL (Normal) Range: 1.5-4.5 Albumin, Serum 4.5 g/dL (Normal) Range: 3.6-4.8 Protein, Total, Serum 6.8 g/dL (Normal) Range: 6.0-8.5 Calcium, Serum 9.6 mg/dL (Normal) Range: 8.7-10.3 Carbon Dioxide, Total 22 mmol/L (Normal) Range: 18-29 Chloride, Serum 104 mmol/L (Normal) Range: 97-108 Potassium, Serum 4.8 mmol/L (Normal) Range: 3.5-5.2 Sodium, Serum 144 mmol/L (Normal) Range: 134-144 BUN/Creatinine Ratio 13 (Normal) Range: 11-26 eGFR If Africn Am 109 mL/min/1.73 (Normal) eGFR If NonAfricn Am 95 mL/min/1.73 (Normal) Creatinine, Serum 0.60 mg/dL (Normal) Range: 0.57-1.00 BUN 8 mg/dL (Normal) Range: 8-27 Glucose, Serum 99 mg/dL (Normal) Range: 65-99 :54 TSH ([id number]) Comments: PATIENT NOT FASTINGPERFORMED BY: [facility] CenterEbwign5713 [facility] [id number] TSH 2.210 {uIU/mL} (Normal) Range: 0.450-4.500 :05 Urinalysis, Office ([id number]) UA - LEUKOCYTE ESTERASE Negative (Normal) UA - NITRITE Negative (Normal) URINE UROBILINGN HE TIMED 2 mg/dL (Normal) UA - PROTEIN Negative mg/dL (Normal) UA - PH 7 (Normal) UA - BLOOD Negative (Normal) UA - SPECIFIC GRAVITY 1.010 (Normal) UA - KETONES Negative mg/dL (Normal) UA - BILIRUBIN Negative (Normal) UA - GLUCOSE Negative (Normal) :12 CBCD ALC 1.31 {X10_3/ul} (Normal) Range: 0.83-4.51 ANC 3.0 {X10_3/uL} (Normal) Range: 2.0-7.7 IG% 0.200 % (Normal) Range: 0.0-0.9 Comments: IG% - Immature Granulocytes (promyelocytes, myelocytes andmetamyelocytes) > 1% indicates that a LEFT SHIFT is Present. B% 0.2 % (Normal) Range: 0-1 E% 6.8 % (Abnormal) Range: 0-5 M% 6.8 % (Normal) Range: 0-10 L% 26.0 % (Normal) Range: 19-41 N% 60.0 % (Normal) Range: 47-70 MPV 9.4 fL (Normal) Range: 6.2-12.0 PLT 232 K/mm3 (Normal) Range: 150-450 RDWSD 45.8 fL (Abnormal) Range: 35.1-43.9 RDWCV 13.5 % (Normal) Range: 11.6-14.6 MCH 30.5 pg (Normal) Range: 27.0-32.0 MCHC 32.8 {g/gl} (Normal) Range: 32-36 MCV 92.9 fL (Normal) Range: 81-99 HCT 42.1 % (Normal) Range: 37-47 HGB 13.8 g/dL (Normal) Range: 12.0-15.0 RBC 4.53 {M/mm3} (Normal) Range: 4.2-5.4 WBC 5.0 K/mm3 (Normal) Range: 4.4-11.0 :12 CMP GAP 7 (Normal) Range: 5-15 CL 107 mmol/L (Normal) Range: 98-107 CO2 26.0 mmol/L (Normal) Range: 21.0-32.0 K 3.8 mmol/L (Normal) Range: 3.5-5.1 NA 140 mmol/L (Normal) Range: 136-145 BIT 0.60 mg/dL (Normal) Range: 0.00-1.00 ALT 30 U/L (Normal) Range: 12-78 ALK 73 U/L (Normal) Range: 45-117 AST 19 U/L (Normal) Range: 15-37 CA 9.0 mg/dL (Normal) Range: 8.5-10.1 AG 1.0 {RATIO} (Normal) Range: 0.9-2.4 ALB 3.6 g/dL (Normal) Range: 3.4-5.0 GLOB 3.7 g/dL (Normal) Range: 2.7-4.2 TPROT 7.3 g/dL (Normal) Range: 6.4-8.2 BC 20.0 {RATIO} (Normal) Range: 10-20 GFRAA 128 mL/min (Normal) CREAT 0.6 mg/dL (Normal) Range: 0.6-1.0 GFR 106 mL/min (Normal) BUN 12 mg/dL (Normal) Range: 7-18 GLU 105 mg/dL (Normal) Range: 70-110 :12 LIPID VLDL 37 mg/dL (Normal) Range: 5-40 HDL 52 mg/dL (Normal) Comments: Reference RangeHDL <40 mg/dL Low HDL CholesterolHDL >or= 60 mg/dL High HDL Cholesterol LDL 221 mg/dL (Abnormal) Range: 0-130 CHOL 310 mg/dL (Abnormal) Comments: <200 mg/dL [id number] mg/dL Borderline>240 mg/dL High Risk TRIG 185 mg/dL (Normal) Range: 0-199 Comments: Serum Triglycerides Reference IntervalNormal <150 mg/dLBorderline high 150 - 199 mg/dLHigh 200 - 499 mg/ dLVery High > or = 500 mg/dL :12 MIACRE MIALB 19.7 mg/L (Normal) tMICROCREAT 24.9 {mg/g_CRE} (Normal) CREU 79.1 mg/dL (Normal) :12 TSH 3.78 {uIU/mL} (Abnormal) Range: 0.358-3.74 :12 UAC Comments: How was Urine Obtained? CLEAN CATCH UMUC 0 SEEN {/hpf} (Normal) UBAC RARE {/hpf} (Normal) UEPIS 0-5 SEEN {/hpf} (Normal) Range: 5-10 URBC 0 SEEN {/hpf} (Normal) Range: 0-5 UWBC 0 SEEN {/hpf} (Normal) Range: 0-5 TERESA Negative /ul (Normal) UOB Negative /ul (Normal) DIONTE Negative (Normal) UROBU Normal mg/dL (Normal) uPROTU Negative mg/dL (Normal) FEDERICO 8.0 (Normal) Range: 5.0 - 8.0 KETU Negative mg/dL (Normal) SGU 1.010 (Normal) Range: 1.002-1.030 BILIU Negative mg/dL (Normal) GLUR Normal mg/dL (Normal) UCLAR Clear (Normal) UCOL Yellow (Normal) :26 HgA1C , Office ([id number]) HgA1C , Office 5.7 % (Normal) Range: 4.6 - 7.1 :14 CBCMD ANC 3.4 3/uL (Normal) Range: 2.0-7.7 IG% 0.20 % (Abnormal) Range: 0.0-0.0 B% 0.2 % (Normal) Range: 0-1 E% 5.9 % (Abnormal) Range: 0-5 M% 7.0 % (Normal) Range: 0-10 L% 26.4 % (Normal) Range: 19-41 N% 60.3 % (Normal) Range: 47-70 MPV 9.9 fL (Normal) Range: 6.2-12.0 PLT 220 K/mm3 (Normal) Range: 150-450 RDWSD 42.6 fL (Normal) Range: 35.1-43.9 RDWCV 13.1 % (Normal) Range: 11.6-14.6 MCHC 32.7 g/dL (Normal) Range: 32-36 MCH 29.4 pg (Normal) Range: 27.0-32.0 MCV 89.9 fL (Normal) Range: 81-99 HCT 44.6 % (Normal) Range: 37-47 HGB 14.6 g/dL (Normal) Range: 12.0-15.0 RBC 4.96 {M/mm3} (Normal) Range: 4.2-5.4 WBC 5.6 {k/mm3} (Normal) Range: 4.4-11.0 :14 CMP GAP 9 (Normal) Range: 5-15 CO2 26.0 mmol/L (Normal) Range: 21.0-32.0 CL 106 mmol/L (Normal) Range: 98-107 K 3.8 mmol/L (Normal) Range: 3.5-5.1 NA 141 mmol/L (Normal) Range: 136-145 BIT 0.70 mg/dL (Normal) Range: 0.00-1.00 ALT 26 U/L (Normal) Range: 12-78 ALK 79 U/L (Normal) Range: 50-136 AST 15 U/L (Normal) Range: 15-37 CA 8.9 mg/dL (Normal) Range: 8.5-10.1 AG 1.1 {RATIO} (Normal) Range: 0.9-2.4 GLOB 3.6 g/dL (Normal) Range: 2.7-4.2 ALB 3.8 g/dL (Normal) Range: 3.4-5.0 TPROT 7.4 g/dL (Normal) Range: 6.4-8.2 BC 15.7 {RATIO} (Normal) Range: 10-20 GFRAA 108 mL/min (Normal) GFR 89 mL/min (Normal) CREAT 0.7 mg/dL (Normal) Range: 0.6-1.0 BUN 11 mg/dL (Normal) Range: 7-18 GLU 96 mg/dL (Normal) Range: 70-110 :14 LIPID VLDL 51 mg/dL (Abnormal) Range: 5-40 LDL 188 mg/dL (Abnormal) Range: 0-130 HDL 47 mg/dL (Normal) Comments: Reference RangeHDL <40 mg/dL Low HDL CholesterolHDL >or= 60 mg/dL High HDL Cholesterol TRIG 257 mg/dL (Abnormal) Comments: Serum Triglycerides Reference IntervalNormal <150 mg/dLBorderline high 150 - 199 mg/dLHigh 200 - 499 mg/ dLVery High > or = 500 mg/dL CHOL 286 mg/dL (Abnormal) Comments: <200 mg/dL Ugouugsjd259-470 mg/dL Borderline>240 mg/dL High Risk :14 MIACRE tMICROCREAT <TEST NOT PERFORMED> {mg/g_CRE} (Normal) MIALB < 5.0 mg/L (Normal) CREU 18.4 mg/dL (Normal) :14 TSH 3.54 {uIU/mL} (Normal) Range: 0.358-3.74 :14 [facility] 0 SEEN {/hpf} (Normal) UBAC 0 SEEN {/hpf} (Normal) UEPIS 0-5 SEEN {/hpf} (Normal) Range: 5-10 URBC 0 SEEN {/hpf} (Normal) Range: 0-5 UWBC 0 SEEN {/hpf} (Normal) Range: 0-5 TERESA 25 /ul (Abnormal) UOB Negative /ul (Normal) DIONTE Negative (Normal) UROBU Normal mg/dL (Normal) uPROTU Negative mg/dL (Normal) FEDERICO 8 (Normal) Range: 5.0 - 8.0 SGU 1.010 (Normal) Range: 1.002-1.030 KETU Negative mg/dL (Normal) BILIU Negative mg/dL (Normal) GLUR Normal mg/dL (Normal) UCLAR Clear (Normal) UCOL Yellow (Normal) [id number] BILAT SCRN DIGITAL & CAD Radiology Report See Note (Normal) Comments: MAMMOGRAPHY - BILATERAL SCREENING REASON FOR EXAM: Female, 62 years old. Routine annual screeningexamination. PERTINENT HISTORY: Sister with breast cancer. TECHNIQUE: Digital examinat ion. Mediol ateral oblique (MLO) andcraniocaudad (CC) views of both breasts were obtained. CAD: CAD wasperformed on this study. COMPARISON: Comparison is made with prior studies dated September 03nd October 06, 2009. FINDINGS:The breast composition is composed of scattered fibroglandular densities. There are no dominant masses or suspicious calcifications. No other significant abnormalities are identified. There has been nosignificant change since the prior study. IMPRESSION:Stable bilateral screening mammogram. Yearly follow-up recommended. (A) ASSESSMENT CATEGORY:BIRADS Category 2: Benign finding( s). A letter regarding these resultswill be sent to the patient by the facility within 30 days. Approximately 10% of breast cancers are not detected by mammography. Anormal mammogram should not delay biopsy of a clinically suspiciousabnormality. Signed:Kvng Cutler M.D.January 23, 2013 at 12:21:32 PM [id number] Signed GP/GP If you are the referring physician and would like to consult with theradiologist who provided this interpretation, please contact Letty Mukherjee at [phone]. If this radiologist is unavailable, youwill be directed to another radiologist to as sist. If you are a patient with a question regarding this report, pleasecontactyour referring physician directly. Professional Interpretation Provided By: [employer], Phone ,Fax These documents contain legally protected and confidential healthinformation intended only for the use of the individual or entity namedabove. If you are not the intended recipient, you are hereby n otifiedthatany disclosure, copying, distribution, or other use of these documents isstrictly prohibited. If you have received this information in error,pleasenotify the sender immediately and arrange fo r the return or destructionofthese documents. Dictated on 01/23/13 1143 by Gisela Cutler MDranscribed on 01/24/131711 by ITS IMPORTSign by Kvng Cutler MD on 01/24/131712 Sign by: Kvng Cutler MD :57 ABDOMEN/PELVIS WITH CONTRAST Radiology Report See Note (Normal) Comments: PROCEDURE: CT ABDOMEN AND PELVIS WITH CONTRAST REASON FOR EXAM: Female, 62 years old. Left lower quadrant abdominalpain and diarrhea. RADIATION DOSAGE (If Supplied By Facility): CTDIvol = ( 22.14 ) mGy, DLP=( 2214.85 ) mGycm TECHNIQUE: Transaxial images were obtained from the dome of thediaphragmto the symphysis pubis with oral contrast. 100ml ml of Isovue 250contrastwas administered. Multipl ashley coronal and sagittal images werereformatted. Delayed imaging was obtained as well. COMPARISON: None. FINDINGS:There is a mild degree of increased linear markings at the lung bases.This most like ly represents linear scar. Normal enhanced liver. There are surgical clips in the gallbladder fossaconsistent with a prior cholecystectomy. There is a mild degree ofintrahepatic biliary ductal dilatat ion. This most likely is related tothepost cholecystectomy state. The common bile duct is dilated and measures1.5 cm. There is a benign calcified granuloma of the spleen. Normalpancreas. Normal bila teral adrenal glands. Normal size of the right kidney. There is no right renal mass. Thereareno right renal calculi. There is no right hydronephrosis. Normalvisualized right ureter. Normal size of t he left kidney. There is evidence of left parapelviccysts. There are no left renal calculi. There is no lefthydronephrosis.Normal visualized left ureter. Normal visualized stomach. Normal small inte lidia. There are multiplecolonic diverticula consistent with diverticulosis. The appendix isvisualized and appears normal. There is no demonstrated peritoneal fluid. There is scattered atherosclerotic calcification of the abdominal aorta,without a demonstrated aneurysm. Normal inferior vena cava. Normalretroperitoneum. Normal urinary bladder. There is no pelvic mass lesion orlymphadenopathy.There is no pelvic fluid. Normal abdominal wall. Disk space narrowing at the L4, L5, and L5, [id number]. IMPRESSION:Sigmoid diverticulosis. Signed:Kvng Cutler M.D.September 01, 2012 at 1:13:05 PM [id number] [phone] Signed GP/GP If you are the referring physician and would like to consult with theradiologist who provided this interpretation, please contact Letty Mukherjee at . If this radiologist is unavailable, youwill be directed to another radiologist to assist. If you are a patient with a question regarding this report, pleasecontactyour referring physician directly . Professional Interpretation Provided By: [employer], Phone , These documents contain legally protected and confidential healthinformation intended only for the use of th e individual or entity namedabove. If you are not the intended recipient, you are hereby notifiedthatany disclosure, copying, distribution, or other use of these documents isstrictly prohibited. If you have received this information in error,pleasenotify the sender immediately and arrange for the return or destructionofthese documents. Dictated on 09/01/12 0811 by Gisela Cutler MDrandayannaribed o n 09/01/12 1322 by ITS IMPORTSign by Kvng Cutler MD on 09/01/12 1323 Sign by: Kvng Cutler MD [id number]-[id number]:53 CRE GFRAA 109 mL/min (Normal) GFR 90 mL/min (Normal) CREAT 0.7 mg/dL (Normal) Range: 0.6-1.0 92-Unt-[id number]:41 KNEE,4 OR MORE VIEWS Radiology Report See Note (Normal) Comments: PROCEDURES: X-RAY - RIGHT KNEE REASON FOR EXAM: Female, 61 years old. Knee pain and swelling. TECHNIQUE: Four views of the knee. COMPARISON: None. FINDINGS:There is mild degenerative arthrosis of the medial femorotibialcompartment. Normal lateral femorotibial compartment. There is milddegenerative arthrosis of the patellofemoral articulation. Normal visualized distal femur. Normal visualiz ed proximal tibia andfibula. Normal proximal tibiofibular articulation. There is a tiny joint effusion. IMPRESSION:Degenerative arthrosis. Tiny joint effusion. To consult with a radiologist regarding t his report, please call our [id number] line @ Dictated on 01/31/12 1436 by Ranulfo Cutler MDrieleTranscribed on 02/01/12 1327 by ITS IMPORTSign by Kvng Cutler MD on 02/01/12 13 28 Sign by: Kvng Cutler MD [id number]-[id number]:36 CULTURE, URINE URINE CULTURE See Note {CFU/mL} (Normal) Comments: COLONY COUNT 25,000-50,000 ORGANISM 1: MIXED GRAM POSITIVE ORGANISMS 26-Apr-20119:17 Urinalysis, Office ([id number]) UA - BILIRUBIN Negative (Normal) UA - BLOOD Negative (Normal) UA - GLUCOSE Negative (Normal) UA - KETONES Negative mg/dL (Normal) UA - LEUKOCYTE ESTERASE Negative (Normal) UA - NITRITE Negative (Normal) UA - PH 7.0 (Normal) UA - PROTEIN Negative mg/dL (Normal) UA - SPECIFIC GRAVITY 1.015 (Normal) URINE UROBILINGN HE TIMED Normal mg/dL (Normal) :34 CBCD,SMEAR DIFF EOS 5 % (Normal) Range: 0-5 PLT EST SeeNote (Normal) Comments: Result: ADEQUATE RED CELL MORPH SeeNote {NORMAL} (Normal) Comments: Result: NORM C+C LYMPH 29 % (Normal) Range: 19-41 MONOCYTE 4 % (Normal) Range: 0-10 CELLS COUNTED 100 (Normal) SEGS 62 % (Normal) Range: 47-70 ABSOLUTE NEUT 3.3 3/uL (Normal) Range: 2.0-7.7 PLT 289 K/mm3 (Normal) Range: 150-450 MCHC 34.1 g/dL (Normal) Range: 32-36 RDW 14.5 % (Normal) Range: 11.6-14.6 HCT 41.5 % (Normal) Range: 37-47 MCH 30.9 pg (Normal) Range: 27.0-32.0 MCV 90.6 fL (Normal) Range: 81-99 HGB 14.1 g/dL (Normal) Range: 12.0-16.0 RBC 4.58 {M/mm3} (Normal) Range: 4.2-5.4 WBC 5.4 K/mm3 (Normal) Range: 4.4-11.0 :34 COMP METABOLIC CO2 27.0 mmol/L (Normal) Range: 21.0-32.0 GAP 12 (Normal) Range: 5-15 CL 100 mmol/L (Normal) Range: 98-107 K 3.3 mmol/L (Abnormal) Range: 3.5-5.1 NA 139 mmol/L (Normal) Range: 136-145 T BILI 0.50 mg/dL (Normal) Range: 0.00-1.00 ALT 28 U/L (Normal) Range: 12-78 ALK P 86 U/L (Normal) Range: 50-136 AST 15 U/L (Normal) Range: 15-37 CA 9.3 mg/dL (Normal) Range: 8.5-10.1 A/G 0.9 {RATIO} (Normal) Range: 0.9-2.4 ALB 3.6 g/dL (Normal) Range: 3.4-5.0 GLOB 4.0 g/dL (Normal) Range: 2.7-4.2 BUN/CRE 27.1 {RATIO} (Abnormal) Range: 10-20 EST GFR - AA 109 mL/min (Normal) T PROT 7.6 g/dL (Normal) Range: 6.4-8.2 EST GFR 90 mL/min (Normal) CREAT,SERUM 0.7 mg/dL (Normal) Range: 0.6-1.0 BUN 19 mg/dL (Abnormal) Range: 7-18 GLU 112 mg/dL (Abnormal) Range: 70-110 Comments: Fasting Glucose result from 110 to <126 mg/dL suggests IMPAIRED HOMEOSTASIS per A.D.A. criteria. :34 COMPLETE UA BACTERIA RARE {/hpf} (Normal) MUCUS, URINE 0 SEEN {/hpf} (Normal) RBC-UA 0 SEEN {/hpf} (Normal) Range: 0-5 SQUAM EPI SeeNote {/hpf} (Normal) Range: 5-10 Comments: Result: 0-5 SEEN WBC SeeNote {/hpf} (Normal) Range: 0-5 Comments: Result: 0-5 SEEN LEUK ESTERASE SeeNote (Normal) Comments: Result: NEGATIVE NITRITE UR SeeNote (Normal) Comments: Result: NEGATIVE OCCULT BLOOD-UR SeeNote (Normal) Comments: Result: NEGATIVE pH UR 5.5 (Normal) Range: 5.0-8.0 PROT DIPSTX SeeNote (Normal) Comments: Result: NEGATIVE SP.GR. DIPSTX >=1.030 (Normal) Range: 1.002-1.030 UROBILI 0.2 EU/dl (Normal) Range: 0.2 - 1.0 KETONE UR SeeNote mg/dL (Normal) Comments: Result: NEGATIVE BILIRUBIN URINE SeeNote (Normal) Comments: Result: NEGATIVE CLARITY SeeNote (Normal) Comments: Result: SL CLOUDY GLUCOSE, UR SeeNote (Normal) Comments: Result: NEGATIVE COLOR YELLOW (Normal) :34 LIPID LDL 209 mg/dL (Abnormal) Range: 0-130 VLDL 37 mg/dL (Normal) Range: 5-40 HDL 55 mg/dL (Normal) Comments: Reference Range HDL <40 mg/dL Low HDL Cholesterol HDL >or= 60 mg/dL High HDL Cholesterol TRIG 185 mg/dL (Normal) Comments: Serum Triglycerides Reference Interval Normal <150 mg/dL Borderline high 150 - 199 mg/dL High 200 - 499 mg/dL Very High > or = 500 mg/dL CHOL 301 mg/dL (Abnormal) Comments: <200 mg/dL Desirable 200-240 mg/dL Borderline >240 mg/dL High Risk :34 MICROALB:CRE UR MALB:CREAT 6.8 {mg/g_CRE} (Normal) MICROALBUMIN,UR 11.6 mg/L (Normal) UR CREAT 170.3 mg/dL (Normal) :34 TSH 3.22 {uIU/mL} (Normal) Range: 0.358-3.74 26-Ruk-[id number]:23 URINE KVNG CULTURE-IDENTIFICATN Comments: PATIENT NOT FASTINGPERFORMED BY: [facility]Co[facility] CenterErrvys[address] [facility] [id number] Information: [id number] ([id number]) Antimicrobial MIHEAD (Normal) Comments: S = Susceptible; I = Intermediate; R = Resistant P = Positive; N = Negative MICS are expressed in micrograms per mL Antibiotic RSLT#1 RSLT#2 Susceptibility RSLT#3 RSLT#4Amoxicillin/Clavulanic Acid SAmpicillin RCefepime SCeftriaxone SCefuroxime SCephalothin SCiprofloxacin S SESBL NGentamicin SImipenem SLevofloxacin S SNitrofuranto in I SPenicillin SPiperacillin/Tazobactam STetracycline STobramycin STrimethoprim/Sulfa SVancomycin S Result 2 Enterococcus faecalis Comments: 2,000 Colonies/mLNote: this isolate is vancomycin-susceptible.This information is provided for epidemiologic purposesonly: vancomycin is not among the antibioticsrecommended for therapy of urinary tract (Normal) infectionscaused by Enterococcus.For Enterococcus species, cephalosporins, aminoglycosides (except forhigh-level resistance screening), clindamycin, and trimethoprim-sulfamethoxazole are not effective clinically. Fluoroquinolones areused primarily for treating urinary tract infections. (CLSI, [id number],2009) Result 1 Klebsiella pneumoniae Comments: 3,000 Colonies/mL . (Normal) Urine Final report (Normal) Culture,Comprehensive 32-Jyg-[id number]:52 Urinalysis, Office ([id number]) UA - BILIRUBIN Negative (Normal) UA - BLOOD Negative (Normal) UA - GLUCOSE Negative (Normal) UA - KETONES Negative mg/dL (Normal) UA - LEUKOCYTE ESTERASE Small (Normal) UA - NITRITE Negative (Normal) UA - PH 5.0 (Normal) UA - PROTEIN Negative mg/dL (Normal) UA - SPECIFIC GRAVITY 1.015 (Normal) URINE UROBILINGN HE TIMED Normal mg/dL (Normal) 2-Pio-[id number]:44 TRANSVAGINAL NON- Radiology Report See Note (Normal) Comments: Exam Number: [id number] LINICAL:This is a 60-year-old female patient with history of lower abdominalpressure and dysuria. PELVIC ULTRASOUND - COMPLETE TECHNIQUE:Transabdominal and Transvaginal COMPARISON :None. FINDINGS:Normal urinary bladder contour, without focal or diffuse wallthickening. There are no bladder calculi or intracystic masses. Normal uterine size, measuring 7.9 cm in maximum craniocauda ldimension. There are no myometrial masses. Normal endometrial thickness measuring 5 mm. The ovaries were not visualized on either exam. No adnexal masslesion is seen. There is no free fluid within th e pelvis. IMPRESSION:Normal uterus. The ovaries were not visualized. Reported By: KVNG CUTLER 6-Tzo-[id number]:24 PELVIC (NON ) Radiology Report See Note (Normal) Comments: Exam Number: [id number] LINICAL:This is a 60-year-old female patient with history of lower abdominalpressure and dysuria. PELVIC ULTRASOUND - COMPLETE TECHNIQUE:Transabdominal and Transvaginal COMPARISON :None. FINDINGS:Normal urinary bladder contour, without focal or diffuse wallthickening. There are no bladder calculi or intracystic masses. Normal uterine size, measuring 7.9 cm in maximum craniocauda ldimension. There are no myometrial masses. Normal endometrial thickness measuring 5 mm. The ovaries were not visualized on either exam. No adnexal masslesion is seen. There is no free fluid within th e pelvis. IMPRESSION:Normal uterus. The ovaries were not visualized. Reported By: KVNG CUTLER 85-[id number]:53 URINE KVNG CULTURE-HE COL Comments: PATIENT NOT FASTINGPERFORMED BY: [facility] [facility] [id number] Information: SRC:URT [id number] COUNT ([id number]) Result 3 BETAGB (Normal) Comments: Beta hemolytic Streptococcus, group B2,000 Colonies/mLPenicillin continues to be the drug of choice for infectionscaused by beta hemolytic streptococci in groups A,B,C and G.No penicillin resistance has been described among theseorganisms and surveillance for emerging resistance is notrecommended. (KARLOS Thompson. Clinical Microbiology Newsletter,1993; RAYMOND Estrella, et al. Diagnostic Microbiology andIn fectious Disease, April,.) S = Susceptible; I = Intermediate; R = Resistant P = Positive; N = NegativeMICS are expressed in micrograms per mLAntibiotic RSLT#1 RSLT#2 RSLT#3 RSLT#4Amoxicillin/Clavulanic Acid SAmpicillin RCefepime SCeftriaxone SCefuroxime SCephalothin SCiprofloxacin S SESBL NGentamicin SImipenem SLevofloxacin S SNitrofurantoin S SPenicillin SPiperacillin/Tazobactam STetracycline STobramycin STrimethoprim/Sulfa SVancomycin S Result 1 Enterococcus faecalis Comments: 500 Colonies/mLNote: this isolate is vancomycin-susceptible.This information is provided for epidemiologic purposesonly: vancomycin is not among the antibioticsrecommended for therapy of urinary tract (Normal) infectionscaused by Enterococcus.For Enterococcus species, cephalosporins, aminoglycosides (except forhigh-level resistance screening), clindamycin, and trimethoprim-sulfamethoxazole are not effective c linically. Fluoroquinolones areused primarily for treating urinary tract infections. (CLSI, [id number],2009) Result 2 Klebsiella pneumoniae Comments: 100 Colonies/mL . (Normal) Urine Final report (Normal) Culture,[place] rankin :50 Urinalysis, Office ([id number]) UA - LEUKOCYTE ESTERASE Trace (Normal) UA - NITRITE Negative (Normal) URINE UROBILINGN HE TIMED Normal mg/dL (Normal) UA - PROTEIN Negative mg/dL (Normal) UA - PH 5.0 (Normal) UA - BLOOD Non Hemolyzed Trace (Normal) UA - SPECIFIC GRAVITY 1.010 (Normal) UA - KETONES Negative mg/dL (Normal) UA - BILIRUBIN Negative (Normal) UA - GLUCOSE Negative (Normal) 1-Uhh-539741:00 Urinalysis, Office ([id number]) UA - LEUKOCYTE ESTERASE Trace (Normal) UA - NITRITE Positive (Normal) URINE UROBILINGN HE Normal mg/dL (Normal) TIMED UA - PROTEIN Negative mg/dL (Normal) UA - PH 6.5 (Normal) UA - BLOOD Negative (Normal) UA - SPECIFIC GRAVITY 1.010 (Normal) UA - KETONES Negative mg/dL (Normal) UA - BILIRUBIN Negative (Normal) UA - GLUCOSE Negative (Normal) :47 GLUP 105 mg/dL (Normal) Comments: GLU,2HPPG 75gm GLUC PPG GLUP from 0902:[id number]. :34 CBC, EMPLOYEE MCHC 34.4 g/dL (Normal) Range: 32-36 MPV 7.3 fL (Normal) Range: 6.5-12.0 PLT 270 K/mm3 (Normal) Range: 150-450 RDW 13.1 % (Normal) Range: 11.6-14.6 HCT 40.9 % (Normal) Range: 37-47 HGB 14.1 g/dL (Normal) Range: 12.0-16.0 MCH 31.6 pg (Normal) Range: 27.0-32.0 MCV 91.7 fL (Normal) Range: 81-99 RBC 4.46 {M/mm3} (Normal) Range: 4.2-5.4 WBC 5.7 K/mm3 (Normal) Range: 4.4-11.0 :34 EMP PROF ALK P 74 U/L (Normal) Range: 50-136 AST 15 U/L (Normal) Range: 15-37 CA 9.4 mg/dL (Normal) Range: 8.5-10.1 CHOL 283 mg/dL (Abnormal) Comments: <200 mg/dL Hmjzbtxzb459-412 mg/dL Borderline>240 mg/dL High Risk HDL 53 mg/dL (Normal) Comments: Reference RangeHDL <40 mg/dL Low HDL CholesterolHDL >or= 60 mg/dL High HDL Cholesterol LDH 180 U/L (Normal) Range: 100-190 LDL 191 mg/dL (Abnormal) Range: 0-130 PHOS 3.4 mg/dL (Normal) Range: 2.5-4.9 T BILI 0.80 mg/dL (Normal) Range: 0.00-1.00 TRIG 197 mg/dL (Normal) Comments: Serum Triglycerides Reference IntervalNormal <150 mg/dLBorderline high 150 - 199 mg/dLHigh 200 - 499 mg/ dLVery High > or = 500 mg/dL VLDL 39 mg/dL (Normal) Range: 5-40 A/G 1.1 {RATIO} (Normal) Range: 0.9-2.4 ALB 3.7 g/dL (Normal) Range: 3.4-5.0 BUN 12 mg/dL (Normal) Range: 7-18 BUN/CRE 17.1 {RATIO} (Normal) Range: 10-20 CREAT,SERUM 0.7 mg/dL (Normal) Range: 0.6-1.0 EST GFR 90 mL/min (Normal) EST GFR - AA 109 mL/min (Normal) GLOB 3.5 g/dL (Normal) Range: 2.7-4.2 GLU 96 mg/dL (Normal) Range: 70-110 T PROT 7.2 g/dL (Normal) Range: 6.4-8.2 URIC 3.4 mg/dL (Normal) Range: 2.6-6.0 :34 EMP URINALYSIS BILIRUBIN URINE SeeNote (Normal) Comments: Result: NEGATIVE KETONE UR SeeNote mg/dL (Normal) Comments: Result: NEGATIVE LEUK ESTERASE 1+ (Abnormal) NITRITE UR SeeNote (Normal) Comments: Result: NEGATIVE OCCULT BLOOD-UR SeeNote (Normal) Comments: Result: NEGATIVE pH UR 6.5 (Normal) Range: 5.0-8.0 PROT DIPSTX SeeNote (Normal) Comments: Result: NEGATIVE SP.GR. DIPSTX <=1.005 (Normal) Range: 1.002-1.030 UROBILI 0.2 EU/dl (Normal) Range: 0.2 - 1.0 CLARITY CLEAR (Normal) COLOR STRAW (Normal) GLUCOSE, UR SeeNote (Normal) Comments: Result: NEGATIVE :02 THYROID (HP) Radiology Report See Note (Normal) Comments: Exam Number: [id number] CLINICAL:This is a 60-year-old female patient with history of enlargedthyroid. ULTRASOUND THYROID TECHNIQUE: COMPARISON:None. FINDINGS:Normal size, contour and echotex ture of the right lobe of thethyroid gland, measuring 4.4 cm in length. There is 8 mm x 3 mm by1 mm cystic nodule in the superior medial aspect of the right lobe. Normal size, contour and echotexture of the left l obe of the thyroidgland, measuring 4.7 cm in length. There is no discrete solid orcystic lesion. Normal thyroid isthmus. There is no perithyroid pathology. IMPRESSION:Tiny cyst in the right lobe of the thyroid. Reported By: KVNG CUTLER :10 COLON BX P-COLBX (Normal) Comments: OPERATIONColonoscopy with biopsyPRE-OPERATIVE DIAGNOSISDiarrheaPOST- OPERATIVE DIAGNOSISRule out microscopic colitisTISSUE SUBMITTEDA - Right colon biopsy, B - Left colon biopsyMICROSCOPIC DIAGNOSISA. R ight colon, biopsy:Fragments of colonic mucosa, no pathologic diagnosis.B. Left colon, biopsy:Fragments of colonic mucosa, no pathologic diagnosis.SJ: 03/20/10GROSS DESCRIPTIONA - Received in formali n labeled with patient name and number and designated right colonbiopsy are multiple irregular fragments of light ramirez soft tissue that in aggregate measure1 x 0.5 x 0.1 cm. The specimen is totally lazo bmitted in one cassette.B - Received in formalin labeled with patient name and number and designated left colonbiopsy are multiple irregular fragments of light ramirez soft tissue that in aggregate measur e0.5 x 0.5 x 0.1 cm. The specimen is totally submitted in one cassette. / SJ: 03/19/10TC:4REPORT SIGNED: ESPINOZA WEINSTEINI 03/20/1010-Feb-201095-Pup-016848:08 KNEE,4 OR MORE VIEWS (MT) Radiology Report See Note (Normal) Comments: Exam Number: [id number] CLINICAL:Pain X-RAY EXAMINATION LEFT KNEE TECHNIQUE:Four views of the knee. COMPARISON:None. FINDINGS:Normal visualized distal femur. Normal visualized proximal tibia. Normal visu alized proximal fibula. There is minimal narrowing of the medial femorotibial compartment.Normal lateral femorotibial compartment. Normal patellofemoral articulation. There is no demonstrated jointeffu tamia. There is no demonstrated soft tissue swelling. IMPRESSION:Chronic degenerative changes, as discussed above. Reported By: SURINDER WOODRUFF 73-Qwb-521745:00 SPINE, LUMBAR W/W/O CONTRAST Radiology Report See Note (Normal) Comments: Exam Number: [id number] CLINICAL:59-year-old female with displaced lumbar disk low back pain right buttock and leg pain. Two prior diskectomies in 2004. MRI LUMBAR SPINE WITHOUT AND WITH CONTRAST PARVEZ RISON:None. TECHNIQUE:Standardized fat and water weighted pulse sequences were obtained in the sagittal and axial planes pre and post I.V. administration of 18 ml of Magnevist contrast material. FINDING S:There is no compression deformity or demonstrated fracture. There are no infiltrative or destructive processes of the vertebrae. Normal conus medullaris that terminates at L1. T11-T12, T12-L1: (Image d only in the sagittal plane.) Normal hydration, heights and morphologies of the intervertebral discs at the corresponding levels without an annular bulge or disc displacement. There is no substantial endplate spondylosis, or facet arthrosis with normal bilateral intervertebral neuroforamina, central canal, and lateral recesses at the corresponding levels. L1-2: Normal disc hydration, height and mo rphology without an annular bulge or disc displacement. There is no substantial endplate spondylosis or facet arthrosis with normal bilateral intervertebral neuroforamina. Normal central canal, and la teral recesses. L2-3: Normal disc hydration, height and morphology without an annular bulge or disc displacement. There is no substantial endplate spondylosis or facet arthrosis with normal bilateral intervertebral neuroforamina. Normal central canal, and lateral recesses. L3-4: There is loss of normal disk hydration. There is mild disk protrusion with slight narrowing of the thecal sac the The re is no substantial endplate spondylosis or facet arthrosis with normal bilateral intervertebral neuroforamina. Normal central canal, and lateral recesses. L4- 5: There is loss of normal disk hydratio n. There is a central annular tear. There is moderate bilateral facet arthrosis without endplate spondylosis producing mild foraminal compromise but without a demonstrated morphologic neural impingeme nt. Normal central canal, and lateral recesses. L5-S1: There is disc desiccation with preservation of the disc height, without annular bulging or a focal disc displacement. There is endplate spondyl osis and moderate to severe bilateral facet arthrosis (left greater than right), with a potential for neural impingement upon the exiting left L5 nerve root. There is moderate central canal with bilate ral lateral recess stenosis with a potential for neural impingement upon the bilateral descending S1 nerve roots. There is no demonstrated enhancing abnormality. There is a normal lumbar lordosis witho ut a spondylolisthesis. There is no significant scoliosis. There is no paraspinous soft tissue abnormality. IMPRESSION:There are multilevel degenerative changes of the lumbar spine as described above. Reported By: LANDY HIGHTOWER M.D. :03 TRAN-D [id number] TRAN-DIRECT SeeNote (Normal) Comments: Result: Negative [facility] At: [facility] [place], [place] [id number] At: [facility] [place], [place] [id number] :03 ANTI-CCP [id number] 6 {units} (Normal) Range: 0-19 Comments: Negative <20 Weak positive 20 - 39 Moderate positive 40 - 59 Strong positive >59 :03 C-REACTIVE PROT < 2.90 mg/L (Normal) Range: 0.0-3.0 Comments: C-Reactive Protein (CRP) provides useful information for thediagnosis, therapy and monitoring of inflammatory processesand associated diseases. For the evaluation of Relative Riskfor Cardiovascular Dise ase, a High Sensitivity CRP (HSCRP)should be ordered. :03 CBCD,SMEAR DIFF BAND 1 % (Normal) Range: 0-5 CELLS COUNTED 100 (Normal) EOS 1 % (Normal) Range: 0-5 HCT 39.9 % (Normal) Range: 37-47 HGB 13.7 g/dL (Normal) Range: 12.0-16.0 LYMPH 29 % (Normal) Range: 19-41 MCH 31.5 pg (Normal) Range: 27.0-32.0 MCHC 34.5 g/dL (Normal) Range: 32-36 MCV 91.5 fL (Normal) Range: 81-99 MONOCYTE 5 % (Normal) Range: 0-10 PLT 252 K/mm3 (Normal) Range: 150-450 PLT EST SeeNote (Normal) Comments: Result: ADEQUATE RBC 4.36 {M/mm3} (Normal) Range: 4.2-5.4 RDW 13.3 % (Normal) Range: 11.6-14.6 RED CELL MORPH SeeNote {NORMAL} (Normal) Comments: Result: NORM C+C SEGS 64 % (Normal) Range: 47-70 WBC 4.5 K/mm3 (Normal) Range: 4.4-11.0 :03 COMP METABOLIC A/G 1.0 {RATIO} (Normal) Range: 0.9-2.4 ALB 3.7 g/dL (Normal) Range: 3.4-5.0 ALK P 77 U/L (Normal) Range: 50-136 ALT 21 U/L (Abnormal) Range: 30-65 AST 15 U/L (Normal) Range: 15-37 BUN 10 mg/dL (Normal) Range: 7-18 BUN/CRE 14.3 {RATIO} (Normal) Range: 10-20 CA 8.8 mg/dL (Normal) Range: 8.5-10.1 CL 106 mmol/L (Normal) Range: 98-107 CO2 26.0 mmol/L (Normal) Range: 21.0-32.0 CREAT,SERUM 0.7 mg/dL (Normal) Range: 0.6-1.0 EST GFR 90 mL/min (Normal) EST GFR - AA 109 mL/min (Normal) GAP 10 (Normal) Range: 5-15 GLOB 3.6 g/dL (Normal) Range: 2.7-4.2 GLU 106 mg/dL (Normal) Range: 70-110 K 3.8 mmol/L (Normal) Range: 3.5-5.1 NA 142 mmol/L (Normal) Range: 136-145 T BILI 0.70 mg/dL (Normal) Range: 0.00-1.00 T PROT 7.3 g/dL (Normal) Range: 6.4-8.2 :03 ESR SED RATE 11 (Normal) Range: 0-20 :03 LIPID CHOL 298 mg/dL (Abnormal) Comments: <200 mg/dL Desirable 200-240 mg/dL Borderline >240 mg/dL High Risk HDL 50 mg/dL (Normal) Comments: Reference Range HDL <40 mg/dL Low HDL Cholesterol HDL >or= 60 mg/dL High HDL Cholesterol LDL 209 mg/dL (Abnormal) Range: 0-130 TRIG 197 mg/dL (Normal) Comments: Serum Triglycerides Reference Interval Normal <150 mg/dL Borderline high 150 - 199 mg/dL High 200 - 499 mg/dL Very High > or = 500 mg/dL VLDL 39 mg/dL (Normal) Range: 5-40 :03 MICROALB:CRE UR MALB:CREAT <TEST NOT PERFORMED> {mg/g_CRE} (Normal) MICROALBUMIN,UR < 5.0 mg/L (Normal) UR CREAT 32.5 mg/dL (Normal) : RHEUMATOID FAC 11.2 {IU/mL} (Normal) :03 ROUTINE UA LEUK ESTERASE 1+ (Abnormal) NITRITE UR SeeNote (Normal) Comments: Result: NEGATIVE OCCULT BLOOD-UR SeeNote (Normal) Comments: Result: NEGATIVE PROT DIPSTX SeeNote (Normal) Comments: Result: NEGATIVE UROBILI 0.2 EU/dl (Normal) Range: 0.2 - 1.0 BILIRUBIN URINE SeeNote (Normal) Comments: Result: NEGATIVE CLARITY CLEAR (Normal) COLOR YELLOW (Normal) GLUCOSE, UR SeeNote (Normal) Comments: Result: NEGATIVE KETONE UR SeeNote mg/dL (Normal) Comments: Result: NEGATIVE pH UR 7.0 (Normal) Range: 5.0-8.0 SP.GR. DIPSTX <=1.005 (Normal) Range: 1.002-1.030 :03 TSH 2.54 {uIU/mL} (Normal) Range: 0.358-3.74 :41 CBC, EMPLOYEE HCT 41.3 % (Normal) Range: 37-47 HGB 14.0 g/dL (Normal) Range: 12.0-16.0 MCH 30.4 pg (Normal) Range: 27.0-32.0 MCHC 33.9 g/dL (Normal) Range: 32-36 MCV 89.8 fL (Normal) Range: 81-99 MPV 7.3 fL (Normal) Range: 6.5-12.0 PLT 322 K/mm3 (Normal) Range: 150-450 RBC 4.60 {M/mm3} (Normal) Range: 4.2-5.4 RDW 13.1 % (Normal) Range: 11.6-14.6 WBC 5.9 K/mm3 (Normal) Range: 4.4-11.0 :41 EMP PROF A/G 1.2 {RATIO} (Normal) Range: 0.9-2.4 ALB 3.9 g/dL (Normal) Range: 3.4-5.0 ALK P 68 U/L (Normal) Range: 50-136 AST 14 U/L (Abnormal) Range: 15-37 BUN 12 mg/dL (Normal) Range: 7-18 BUN/CRE 15.0 {RATIO} (Normal) Range: 10-20 CA 8.9 mg/dL (Normal) Range: 8.5-10.1 CHOL 250 mg/dL (Abnormal) Comments: <200 mg/dL Desirable 200-240 mg/dL Borderline >240 mg/dL High Risk CREAT,SERUM 0.8 mg/dL (Normal) Range: 0.6-1.0 GLOB 3.3 g/dL (Normal) Range: 2.7-4.2 Comments: Please Note Reference Interval Change GLU 90 mg/dL (Normal) Range: 70-110 HDL 53 mg/dL (Normal) Comments: Reference Range HDL <40 mg/dL Low HDL Cholesterol HDL >or= 60 mg/dL High HDL Cholesterol LDH 180 U/L (Normal) Range: 100-190 LDL 167 mg/dL (Abnormal) Range: 0-130 PHOS 3.7 mg/dL (Normal) Range: 2.5-4.9 T BILI 0.63 mg/dL (Normal) Range: 0.00-1.00 T PROT 7.2 g/dL (Normal) Range: 6.4-8.2 TRIG 148 mg/dL (Normal) Comments: Serum Triglycerides Reference Interval Normal <150 mg/dL Borderline high 150 - 199 mg/dL High 200 - 499 mg/dL Very High > or = 500 mg/dL URIC 3.3 mg/dL (Normal) Range: 2.6-6.0 VLDL 30 mg/dL (Normal) Range: 5-40 [id number] EMP URINALYSIS BILIRUBIN URINE SeeNote (Normal) Comments: Result: NEGATIVE CLARITY CLEAR (Normal) COLOR YELLOW (Normal) GLUCOSE, UR SeeNote (Normal) Comments: Result: NEGATIVE KETONE UR SeeNote mg/dL (Normal) Comments: Result: NEGATIVE LEUK ESTERASE TRACE (Abnormal) NITRITE UR SeeNote (Normal) Comments: Result: NEGATIVE OCCULT BLOOD-UR SeeNote (Normal) Comments: Result: NEGATIVE pH UR 6.0 (Normal) Range: 5.0-8.0 PROT DIPSTX SeeNote (Normal) Comments: Result: NEGATIVE SP.GR. DIPSTX 1.025 (Normal) Range: 1.002-1.030 UROBILI 0.2 EU/dl (Normal) Range: 0.2 - 1.0 :17 MAMM, BILAT SCRN DIGITAL & CAD Radiology Report See Note (Normal) Comments: Exam Number: [id number] BILATERAL SCREENING MAMMOGRAM COMPARISONComparison is made to prior studies of November 30, 2005 and June. TECHNIQUERoutine MLO and CC views were acquired. F INDINGSThere are scattered fibroglandular elements present, unchanged. Thereis a benign density present within each breast. No suspicious clusterof microcalcifications, area of architectural distortion, orthree-di mensional spiculated masses are shown. There is a benigncalcification in the posterior left breast. IMPRESSION1. No mammographic evidence for malignancy.2. BIRADS code 2 benign. Follow up in 1 year. A letter regarding these results has been sent to the patient. This interpretation was rendered by a radiologist certified underthe Mammography Quality Standards Act of 1992 (MQSA). The mammogramswere also examined with computer-aided detection software([employer] Reported By: CHUCK PEREZ M.D. [id number] SHOULDER,MIN 2 VIEWS Radiology Report See Note (Normal) Comments: Exam Number: [id number] RIGHT SHOULDER HISTORYShoulder pain. TECHNIQUEFour views of the right shoulder were obtained. FINDINGSThere is narrowing of the acromioclavicular joint space with slig htirregulari ty of articular surfaces compatible with degenerativechange. The glenohumeral joint is within normal limits. There isbroadening of the inferior aspect of the acromion. This may be due tocalcification in the subacromial bursa. In a single view only, thereis a suggestion of decreased bone density in the region of the greatertuberosity. This is most likely to represent a normal variant whichis thoug ht to represent the effusion line of the lateral portion ofthe epiphysis. IMPRESSION1. There are mild degenerative changes of the acromioclavicular joint.2. There is broadening of the acromion inferiorl y, a finding whichappears to represent inferior spurring or possibly the result ofcalcification of the subacromial bursal. The acromion appears tonarrow the distance between the acromion and the sol l head and islikely to impinge on the rotator cuff. If clinically indicated, a MRIcould be performed.3. There is apparent decreased bone density in the greater tuberosityon a single view only. This is most likely a normal variant. Reported By: LUIS JORGE M.D. 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 Endocervical and/or squamous metaplasticcells (endocervical component) are present. COMM . (Normal) DIAGN Comment (Normal) Comments: NEGATIVE FOR INTRAEPITHELIAL LESION AND MALIGNANCY. HPV RFLX Comment (Normal) Comments: The HPV DNA reflex criteria were not met with this specimenresult therefore, no HPV testing was performed. .Performed At: [facility] [address] [place], [place] [id number] PAPSMR Comment (Normal) Comments: The Pap smear is a screening test designed to aid in thedetection of pre-malignant and malignant conditions of theuterine cervix. It is not a diagnostic procedure andshould not be used as the sole mean s of detecting cervicalcancer. Both false-positive and false-negative reports dooccur. . 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) Comments: Cristal Pisano, Nursing Manager Plan of Care Name Dates Details Instructions Hypertensive heart disease without congestive heart failure : BP MONITORING - SELF Indication: Hypertensive heart disease without congestive heart failure Non-smoker : Eprescribed prescriptions (G8553) Indication: Non-smoker Hypertensive heart disease without congestive heart failure : Follow up in 3 weeks Indication: Hypertensive heart disease without congestive heart failure Hypertensive heart disease without congestive heart failure : Continue Current Prescription(s) Indication: Hypertensive heart disease without congestive heart failure Non-smoker : Eprescribed prescriptions (G8553) Indication: Non-smoker Hypertensive heart disease without congestive heart failure : Follow up in 10 days Indication: Hypertensive heart disease without congestive heart failure Hypertensive heart disease without congestive heart failure : BP MONITORING - SELF Indication: Hypertensive heart disease without congestive heart failure Body mass index 33.0-33.9, adult : Eprescribed prescriptions (G8553) Indication: Body mass index 33.0-33.9, adult Hypertensive heart disease without congestive heart failure : Follow up in 2 weeks Indication: Hypertensive heart disease without congestive heart failure Hypertensive heart disease without congestive heart failure : BP MONITORING - SELF Indication: Hypertensive heart disease without congestive heart failure Hypertensive heart disease without congestive heart failure : HTN/CAD Red Flags Indication: Hypertensive heart disease without congestive heart failure BMI 35.0-35.9,adult : Follow up if no improvement or if symptoms worsen Indication: BMI 35.0-35.9,adult UTI (urinary tract infection) : Eprescribed prescriptions (G8553) Indication: UTI (urinary tract infection) Lower back pain : Follow up if no improvement or if symptoms worsen Indication: Lower back pain Sciatica of right side : Sciatica: low back pain Indication: Sciatica of right side BMI 35.0-35.9,adult : Eprescribed prescriptions (G8553) Indication: BMI 35.0-35.9,adult Annual Medicare Phyiscal WITHOUT abnormal findings (Renamed from Encounter for general adult medical examination without abnormal findings) : fall reduction handout Indication: Annual Medicare Phyiscal WITHOUT abnormal findings (Renamed from Encounter for general adult medical examination without abnormal findings) Annual Medicare Phyiscal WITHOUT abnormal findings (Renamed from Encounter for general adult medical examination without abnormal findings) : elderly packet given Indication: Annual Medicare Phyiscal WITHOUT abnormal findings (Renamed from Encounter for general adult medical examination without abnormal findings) Annual Medicare Phyiscal WITHOUT abnormal findings (Renamed from Encounter for general adult medical examination without abnormal findings) : advance planning information Indication: Annual Medicare Phyiscal WITHOUT abnormal findings (Renamed from Encounter for general adult medical examination without abnormal findings) Postmenopausal (Renamed from Postmenopausal status) : Self breast exam Indication: Postmenopausal (Renamed from Postmenopausal status) Hypercholesteremia : Reviewed Lab Indication: Hypercholesteremia Adult hypothyroidism : Continue Current Prescription(s) Indication: Adult hypothyroidism Hypertensive heart disease without congestive heart failure : HTN/CAD Red Flags Indication: Hypertensive heart disease without congestive heart failure Hypercholesteremia : Cholesterol mgmt Indication: Hypercholesteremia Epigastric pain : Reviewed Lab Indication: Epigastric pain Epigastric pain : Reviewed Diagnostic Tests Indication: Epigastric pain Epigastric pain : Reviewed Intervention Teacher Letter Indication: Epigastric pain Epigastric pain : Continue Current Prescription(s) Indication: Epigastric pain BMI 35.0-35.9,adult : Eprescribed prescriptions (G8553) Indication: BMI 35.0-35.9,adult Hypercholesteremia : Reviewed Lab Indication: Hypercholesteremia GERD (gastroesophageal reflux disease) : Follow up in 2 months Indication: GERD (gastroesophageal reflux disease) GERD (gastroesophageal reflux disease) : Continue Current Prescription(s) Indication: GERD (gastroesophageal reflux disease) Hypercholesteremia : Cholesterol mgmt Indication: Hypercholesteremia Hypertensive heart disease without congestive heart failure : Follow up in 6 months Indication: Hypertensive heart disease without congestive heart failure Hypertensive heart disease without congestive heart failure : Diet, Exercise, and Wt loss Indication: Hypertensive heart disease without congestive heart failure Hypertensive heart disease without congestive heart failure : HTN/CAD Red Flags Indication: Hypertensive heart disease without congestive heart failure GERD (gastroesophageal reflux disease) : GERD Education Indication: GERD (gastroesophageal reflux disease) GERD (gastroesophageal reflux disease) : Follow up in 1 month: elimination diet / wt loss /gerd Indication: GERD (gastroesophageal reflux disease) GERD (gastroesophageal reflux disease) : Eprescribed prescriptions (G8553) Indication: GERD (gastroesophageal reflux disease) GERD (gastroesophageal reflux disease) : GERD Education Indication: GERD (gastroesophageal reflux disease) GERD (gastroesophageal reflux disease) : Follow up in 6 weeks Indication: GERD (gastroesophageal reflux disease) GERD (gastroesophageal reflux disease) : Heartburn *: gerd Indication: GERD (gastroesophageal reflux disease) GERD (gastroesophageal reflux disease) : Follow up in 3 weeks Indication: GERD (gastroesophageal reflux disease) Diarrhea : *Abd Pain Red Flags Indication: Diarrhea Diarrhea : Diarrhea instructions Indication: Diarrhea GERD (gastroesophageal reflux disease) : Eprescribed prescriptions (G8553) Indication: GERD (gastroesophageal reflux disease) GERD (gastroesophageal reflux disease) : Heartburn *: acid indigestion Indication: GERD (gastroesophageal reflux disease) Hearing loss, left : Follow up if no improvement or if symptoms worsen Indication: Hearing loss, left Foot pain : Eprescribed prescriptions (G8553) Indication: Foot pain Bronchitis : *Antibiotic Usage Education - Female Indication: Bronchitis Bronchitis : Eprescribed prescriptions (G8553) Indication: Bronchitis Bronchitis : *URI Treatment Indication: Bronchitis Bronchitis : *URI Symptoms Indication: Bronchitis Bronchitis : *Antibiotic Usage Education - Female Indication: Bronchitis Back pain : Low Back Pain Red Flags Indication: Back pain Back pain : Follow up if no improvement or if symptoms worsen Indication: Back pain Back pain : exercises Indication: Back pain Encounter for Medicare annual wellness exam : *Colon Cancer Screening Indication: Encounter for Medicare annual wellness exam Encounter for Medicare annual wellness exam : fall reduction handout Indication: Encounter for Medicare annual wellness exam Encounter for Medicare annual wellness exam : elderly packet given Indication: Encounter for Medicare annual wellness exam Encounter for Medicare annual wellness exam : advance planning information Indication: Encounter for Medicare annual wellness exam Encounter for Medicare annual wellness exam : *Weight Loss Discussion Indication: Encounter for Medicare annual wellness exam Hypercholesteremia : Cholesterol mgmt Indication: Hypercholesteremia GERD (gastroesophageal reflux disease) : GERD Education Indication: GERD (gastroesophageal reflux disease) Hypertensive heart disease without congestive heart failure : High Blood Pressure (Essential Hypertension) *: bp Indication: Hypertensive heart disease without congestive heart failure Hypertensive heart disease without congestive heart failure : Eprescribed prescriptions (G8553) Indication: Hypertensive heart disease without congestive heart failure Hypertensive heart disease without congestive heart failure : Follow up in 4 months Indication: Hypertensive heart disease without congestive heart failure Hypertensive heart disease without congestive heart failure : HTN/CAD Red Flags Indication: Hypertensive heart disease without congestive heart failure Hypercholesteremia : Cholesterol mgmt Indication: Hypercholesteremia GERD (gastroesophageal reflux disease) : GERD Education Indication: GERD (gastroesophageal reflux disease) GERD (gastroesophageal reflux disease) : Heartburn *: gastroesophageal reflux Indication: GERD (gastroesophageal reflux disease) Indigestion (Renamed from Acid indigestion) : Follow up in 2 weeks Indication: Indigestion (Renamed from Acid indigestion) Hypertensive heart disease without congestive heart failure : Continue Current Prescription(s) Indication: Hypertensive heart disease without congestive heart failure GERD (gastroesophageal reflux disease) : GERD Education Indication: GERD (gastroesophageal reflux disease) Nausea : Reviewed Diagnostic Tests Indication: Nausea Hypertensive heart disease without congestive heart failure : Follow up in 4 months- gen med Indication: Hypertensive heart disease without congestive heart failure Hypertensive heart disease without congestive heart failure : Follow up in 3 weeks- jordi bp/ new rx /test relulst Indication: Hypertensive heart disease without congestive heart failure Hypertensive heart disease without congestive heart failure : BP MONITORING - SELF Indication: Hypertensive heart disease without congestive heart failure Nausea : Continue Current Prescription(s) Indication: Nausea GERD (gastroesophageal reflux disease) : GERD Education Indication: GERD (gastroesophageal reflux disease) Diverticulosis of colon : Diverticulosis Indication: Diverticulosis of colon Hypertensive heart disease without congestive heart failure : HTN/CAD Red Flags Indication: Hypertensive heart disease without congestive heart failure Hypertension : Follow up Indication: Hypertension Hypertensive heart disease without congestive heart failure : Follow up in2- 3 weeks Indication: Hypertensive heart disease without congestive heart failure Hypertensive heart disease without congestive heart failure : HTN/CAD Red Flags Indication: Hypertensive heart disease without congestive heart failure Need for prophylactic vaccination and inoculation against influenza : Flu (Influenza) *: flu Indication: Need for prophylactic vaccination and inoculation against influenza Need for prophylactic vaccination and inoculation against influenza : Flu (Influenza) *: flu shot Indication: Need for prophylactic vaccination and inoculation against influenza GERD (gastroesophageal reflux disease) : Follow up in 1 month Indication: GERD (gastroesophageal reflux disease) Hypertensive heart disease without congestive heart failure : Follow up in 6 months Indication: Hypertensive heart disease without congestive heart failure Diverticulosis of colon : Diverticulosis Indication: Diverticulosis of colon Hypercholesteremia : Reviewed Lab Indication: Hypercholesteremia Hypertensive heart disease without congestive heart failure : Reviewed Lab Indication: Hypertensive heart disease without congestive heart failure Hypertensive heart disease without congestive heart failure : HTN/CAD Red Flags Indication: Hypertensive heart disease without congestive heart failure GERD (gastroesophageal reflux disease) : GERD Education Indication: GERD (gastroesophageal reflux disease) Hypertensive heart disease without congestive heart failure : Blood Pressure: high blood pressure Indication: Hypertensive heart disease without congestive heart failure Hypertensive heart disease without congestive heart failure : Follow up in 4 months Indication: Hypertensive heart disease without congestive heart failure Diverticulosis of colon : Diverticulosis Indication: Diverticulosis of colon Hypertensive heart disease without congestive heart failure : HTN/CAD Red Flags Indication: Hypertensive heart disease without congestive heart failure Hypercholesteremia : Reviewed Lab Indication: Hypercholesteremia Irritable Bowel Syndrome : Follow up in 1 month Indication: Irritable Bowel Syndrome Nausea : Continue Current Prescription(s)- ppi, carafate,yogurt Indication: Nausea Abdominal pain, acute, left lower quadrant : Abdominal Pain: abdominal pain Indication: Abdominal pain, acute, left lower quadrant Abdominal pain, acute, left lower quadrant : Abdominal Pain: abdominal pain Indication: Abdominal pain, acute, left lower quadrant Pain of lower leg, unspecified laterality : Reviewed Diagnostic Tests Indication: Pain of lower leg, unspecified laterality Pain of lower leg, unspecified laterality : Follow up in 1 week- march inject it Indication: Pain of lower leg, unspecified laterality Hypertensive heart disease without congestive heart failure : HTN/CAD Red Flags Indication: Hypertensive heart disease without congestive heart failure Hypertensive heart disease without congestive heart failure : Diet, Exercise, and Wt loss Indication: Hypertensive heart disease without congestive heart failure Hypertensive heart disease without congestive heart failure : Continue Current Prescription(s) Indication: Hypertensive heart disease without congestive heart failure Urinary frequency : Water in diet, brief version Indication: Urinary frequency Urinary frequency : follow up for recheck urine 1 week after complete antibiotic Indication: Urinary frequency Hypertensive heart disease without congestive heart failure : HTN and Decongestants Indication: Hypertensive heart disease without congestive heart failure Other specified viral infection, in conditions classified elsewhere and of unspecified site : *URI Symptoms Indication: Other specified viral infection, in conditions classified elsewhere and of unspecified site Other specified viral infection, in conditions classified elsewhere and of unspecified site : *URI Treatment Indication: Other specified viral infection, in conditions classified elsewhere and of unspecified site Hypertensive heart disease without congestive heart failure : FOLLOW UP IN 4 WEEKS Indication: Hypertensive heart disease without congestive heart failure Hypertensive heart disease without congestive heart failure : Diet, Exercise, and Wt loss Indication: Hypertensive heart disease without congestive heart failure Hypertensive heart disease without congestive heart failure : HTN/CAD Red Flags Indication: Hypertensive heart disease without congestive heart failure Benign essential hypertension : BP MONITORING - SELF Indication: Benign essential hypertension Benign essential hypertension : FOLLOW UP IN 1 MONTH Indication: Benign essential hypertension Benign essential hypertension : Continue Current Prescription(s) Indication: Benign essential hypertension Hypertensive heart disease without congestive heart failure : FOLLOW UP IN 6 MONTHS Indication: Hypertensive heart disease without congestive heart failure Hypertensive heart disease without congestive heart failure : FOLLOW UP IN 3 WEEKS Indication: Hypertensive heart disease without congestive heart failure Hypercholesteremia : CHOLESTEROL MGMT. Indication: Hypercholesteremia Hypercholesteremia : *Cholesterol - Nonprescription Treatment Indication: Hypercholesteremia Hypercholesteremia : *Cholesterol - Medication Side Effects Indication: Hypercholesteremia Hypertensive heart disease without congestive heart failure : Reviewed Diagnostic Tests Indication: Hypertensive heart disease without congestive heart failure Hypertensive heart disease without congestive heart failure : BP MONITORING - SELF Indication: Hypertensive heart disease without congestive heart failure GERD (gastroesophageal reflux disease) : GERD Education Indication: GERD (gastroesophageal reflux disease) Hypertensive heart disease without congestive heart failure : Diet, Exercise, and Wt loss Indication: Hypertensive heart disease without congestive heart failure Hypertensive heart disease without congestive heart failure : HTN/CAD Red Flags Indication: Hypertensive heart disease without congestive heart failure Dysuria : follow up for recheck urine 1 week after complete antibiotic Indication: Dysuria Benign essential hypertension : FOLLOW UP IN 4 MONTHS Indication: Benign essential hypertension Hypercholesteremia : CHOLESTEROL MGMT. Indication: Hypercholesteremia Hypercholesteremia : *Cholesterol - Nonprescription Treatment Indication: Hypercholesteremia Hypercholesteremia : *Cholesterol - Medication Side Effects Indication: Hypercholesteremia Benign essential hypertension : Diet, Exercise, and Wt loss Indication: Benign essential hypertension Benign essential hypertension : HTN/CAD Red Flags Indication: Benign essential hypertension Pain of lower leg, unspecified laterality : Knee Injections Indication: Pain of lower leg, unspecified laterality Unspecified osteoarthritis, unspecified site : Diet, Exercise, and Wt loss Indication: Unspecified osteoarthritis, unspecified site Pain of lower leg, unspecified laterality : Reviewed Diagnostic Tests Indication: Pain of lower leg, unspecified laterality Pain in unspecified joint : Reviewed Lab Indication: Pain in unspecified joint Spinal stenosis of lumbar region : Reviewed Diagnostic Tests Indication: Spinal stenosis of lumbar region Hypercholesteremia : Cholesterol - Nonprescription Treatment Indication: Hypercholesteremia Hypercholesteremia : CHOLESTEROL MGMT. Indication: Hypercholesteremia Hypercholesteremia : Cholesterol - Medication Side Effects Indication: Hypercholesteremia Benign essential hypertension : FOLLOW UP IN 3 WEEKS Indication: Benign essential hypertension Benign essential hypertension : BP MONITORING - SELF Indication: Benign essential hypertension Low back pain potentially associated with radiculopathy : Reviewed Diagnostic Tests Indication: Low back pain potentially associated with radiculopathy Hypercholesteremia : CHOLESTEROL MGMT. Indication: Hypercholesteremia Hypercholesteremia : Cholesterol - Nonprescription Treatment Indication: Hypercholesteremia Hypercholesteremia : Cholesterol - Medication Side Effects Indication: Hypercholesteremia Benign essential hypertension : Diet, Exercise, and Wt loss Indication: Benign essential hypertension Benign essential hypertension : HTN/CAD Red Flags Indication: Benign essential hypertension GERD (gastroesophageal reflux disease) : GERD Education Indication: GERD (gastroesophageal reflux disease) Wheezing : Solu Medrol Injection/ Education Indication: Wheezing HTN and Decongestants Bronchitis : *URI Treatment Indication: Bronchitis Bronchitis : Antibiotic Usage Education - Female Indication: Bronchitis Bronchitis : URI Symptoms Indication: Bronchitis Hypercholesteremia : Cholesterol - Medication Side Effects Indication: Hypercholesteremia Hypercholesteremia : Cholesterol - Nonprescription Treatment Indication: Hypercholesteremia Hypercholesteremia : CHOLESTEROL MGMT. Indication: Hypercholesteremia GERD (gastroesophageal reflux disease) : GERD Education Indication: GERD (gastroesophageal reflux disease) Shoulder pain : Shoulder Injection Indication: Shoulder pain GERD (gastroesophageal reflux disease) : GERD Education Indication: GERD (gastroesophageal reflux disease) Planned Observations Metabolic Panel, Basic ([id number])Indication: Therapeutic drug monitoring On: 75-Odw-44360:13 Request Comments: give to jud to review HEPATIC FUNCTION PANEL ([id number])Indication: Common bile duct dilation On: 50-Xti-222641:18 Request HEPATIC FUNCTION PANEL ([id number])Indication: Epigastric pain On: 57-Hph-171649:51 Request LIPID PANEL ([id number])Indication: Hypercholesteremia On: 44-Fuk-916299:25 Request TSH ([id number])Indication: Abnormal TSH On: 22-Ozj-994570:21 Request T4, FREE (THYROXINE) ([id number])Indication: Abnormal TSH On: : Request T3, FREE (TRIDOTHYRONINE) ([id number])Indication: Abnormal TSH On: : Request TSH ([id number])Indication: Hypercholesteremia On: :14 Request URINALYSIS, W/ MICRO ([id number])Indication: Hypertensive heart disease without congestive heart failure On: :14 Request MICROALBUMIN: CREATININE RATIO ([id number]) AND ([id number])Indication: Hypertensive heart disease without congestive heart failure On: :14 Request METABOLIC PANEL, COMPREHENSIVE ([id number])Indication: Hypertensive heart disease without congestive heart failure On: :14 Request LIPID PANEL ([id number])Indication: Hypercholesteremia On: :14 Request CBC W/AUTO DIFF WBC ([id number])Indication: Hypertensive heart disease without congestive heart failure On: :14 Request Cryptosporidium Sp Ag, Direct Fluorescent Ab ([id number])Indication: Diarrhea On: :44 Request GIARDIA LAMBLIA ANTIBODY ([id number])Indication: Diarrhea On: :43 Request C-DIFFICILE, STOOL ([id number])Indication: Diarrhea On: :43 Request OVA & PARASITE DIR SMEAR ([id number])Indication: Diarrhea On: :43 Request OCCULT BLOOD FECES SCREEN ([id number])Indication: Diarrhea On: :43 Request LEUKOCYTE COUNT, FECAL ([id number])Indication: Diarrhea On: :43 Request KVNG CULTURE-STOOL ([id number])Indication: Diarrhea On: :43 Request FECAL OCCULT HGB ASSAY- tubes sent home ([id number])Indication: Encounter for Medicare annual wellness exam On: :28 Request TSH ([id number])Indication: Hypertensive heart disease without congestive heart failure On: 84-Awm-402768:27 Request URINALYSIS, W/ MICRO ([id number])Indication: Hypertensive heart disease without congestive heart failure On: 45-Sgp-335643:27 Request MICROALBUMIN: CREATININE RATIO ([id number]) AND ([id number])Indication: Hypertensive heart disease without congestive heart failure On: 90-Zxa-843332:27 Request METABOLIC PANEL, COMPREHENSIVE ([id number])Indication: Hypertensive heart disease without congestive heart failure On: 48-Yqx-325874:27 Request CBC WITH MANUAL DIFF ([id number])Indication: Hypertensive heart disease without congestive heart failure On: 10-Gaz-887068:27 Request LIPID PANEL ([id number])Indication: Hypercholesteremia On: 05-Feb-2014 Request URINE KVNG CULTURE-HE COL COUNT ([id number])Indication: Urinary frequency On: :17 Request Magnesium ([id number])Indication: Hypopotassemia On: 08-Dld-238730:50 Request Metabolic Panel, Basic ([id number])Indication: Hypopotassemia On: :49 Request TSH ([id number])Indication: Hypercholesteremia On: :09 Request URINALYSIS, W/ MICRO ([id number])Indication: Hypertensive heart disease without congestive heart failure On: :09 Request MICROALBUMIN: CREATININE RATIO ([id number]) AND ([id number])Indication: Hypertensive heart disease without congestive heart failure On: :09 Request METABOLIC PANEL, COMPREHENSIVE ([id number])Indication: Hypertensive heart disease without congestive heart failure On: :09 Request LIPID PANEL ([id number])Indication: Hypercholesteremia On: :09 Request CBC WITH MANUAL DIFF ([id number])Indication: Hypertensive heart disease without congestive heart failure On: :09 Request URINE KVNG CULTURE-HE COL COUNT ([id number])Indication: Dysuria On: 6-Doz-458979:00 Request Glucose, PP/2 Hour ([id number])Indication: Other specified abnormal findings of blood chemistry On: 21-May-20108:21 Request HEPATIC FUNCTION PANEL ([id number])Indication: Hypercholesteremia On: :57 Request LIPID PANEL ([id number])Indication: Hypercholesteremia On: :57 Request Comments: DO IN 3 MONTHS Glucose, PP/2 Hour ([id number])Indication: Other specified abnormal findings of blood chemistry On: 36-Vfg-53989:57 Request TRAN (ANTINUCLEAR ANTIBODY) ([id number])Indication: Pain in unspecified joint On: Request C-REACTIVE PROTEIN ([id number])Indication: Pain in unspecified joint On: : Request CBC WITH MANUAL DIFF ([id number])Indication: Pain in unspecified joint On: Request CCP ANTIBODY ([id number])Indication: Pain in unspecified joint On: : Request METABOLIC PANEL, COMPREHENSIVE ([id number])Indication: Pain in unspecified joint On: Request RHEUMATOID FACTOR-QUANT ([id number])Indication: Pain in unspecified joint On: : Request SED RATE ERYTHROCYTE ([id number])Indication: Pain in unspecified joint On: Request TSH ([id number])Indication: Pain in unspecified joint On: Request FECAL OCCULT- Tubes sent home ([id number])Indication: Benign essential hypertension On: Request TSH ([id number])Indication: Benign essential hypertension On: : Request URINALYSIS W/O MICRO ([id number])Indication: Benign essential hypertension On: :09 Request MICROALBUMIN: CREATININE RATIO ([id number]) AND ([id number])Indication: Benign essential hypertension On: : Request METABOLIC PANEL, COMPREHENSIVE ([id number])Indication: Benign essential hypertension On: :09 Request LIPID PANEL ([id number])Indication: Benign essential hypertension On: : Request CBC WITH MANUAL DIFF ([id number])Indication: Benign essential hypertension On: :09 Request HEPATIC FUNCTION PANEL ([id number])Indication: Hypercholesteremia On: 2-Rio-532911:56 Request Comments: DO IN 3 MONTHS LIPID PANEL ([id number])Indication: Hypercholesteremia On: 5-Xny-271401:56 Request URINALYSIS W/O MICRO ([id number])Indication: Hypertension On: :51 Request TSH ([id number])Indication: Hypertension On: :51 Request MICROALBUMIN URINE QUANT ([id number])Indication: Hypertension On: :51 Request METABOLIC PANEL, COMPREHENSIVE ([id number])Indication: Hypertension On: :50 Request LIPID PANEL ([id number])Indication: Hypertension On: :50 Request CBC WITH MANUAL DIFF ([id number])Indication: Hypertension On: :50 Request Planned Encounters Medical; ER FU - On: 13-Sep-2018 10:45 [facility] Jessica Corona DO, DO, Jessica Medical; 3 Week FU - On: 25-Sep-2018 13:45 [facility] Jessica Corona DO, DO, Jessica Planned Procedures X-RAY OF ABDOMEN, FLAT PLATE AND On: 21-Jun-2018 Intent ERECT ([id number])By: Jud Samaniego CNP X-RAY OF CERVICAL SPINE, TWO VIEWS On: 02-Jun-2018 Intent ([id number])By: Jessica Corona DO, DO, Kathleen Radiology - Lumbar SpineBy: Mohamud, On: 25-May-2018 Intent Addie ELECTROCARDIOGRAM, COMPLETE (ECG) On: 04-May-2018 Intent ([id number])By: Jessica Corona DO Comments: nsr / no acute chg - pvc present and IVCD DOJessica [id number] On: 28-Apr-2018 Intent FOR OBESITY, 15 MINUTES (G0447)By: Jessica Corona DO, DO, Kathleen DEXA SCAN AXIAL SKELETON ([id number])By: On: 28-Apr-2018 Intent Jessica Corona DO, DO, Kathleen MRCP (MAGNETIC RESONANCE On: 06-Feb-2018 Intent CHOLANGIOPANCREATOGRAPHY) ([id number])By: Jessica Corona DO, DO, Kathleen ULTRASOUND OF UPPER ABDOMEN On: 27-Jan-2018 Intent ([id number])By: Jessica Corona DO Comments: attention size of CBD Jessica SCHROEDER SCREENING DIGITAL TOMOSYNTHESIS OF On: 09-Jan-2018 Intent BREAST ([id number])By: Addie Odell LPN ELECTROCARDIOGRAM, COMPLETE (ECG) On: 03-Aug-2017 Intent ([id number])By: Jessica Corona DO Comments: sinus vinicio no new acute chg DOJessica MAMMOGRAM BREAST BILATERAL SCREENING On: 03-Jul-2015 Intent DIGITAL ([id number])By: Jessica Corona DO, DO, Kathleen Radiology - ChestBy: Jud Samaniego CNP On: 26-May-2015 Intent E Aerosol Treatment ([id number])By: Avilajosesito On: 26-May-2015 Intent Jud SPRINGER Aerosol Treatment ([id number])By: Froylan On: 05-May-2015 Intent Sandy KENT Radiology - Lumbar SpineBy: Danette On: 15-Apr-2015 Intent Jud SPRINGER Toradol Injection, 30 mg ([id number])By: On: 11-Apr-2015 Intent Avilajosesito Jud SPRINGER ADMINISTRATION OF PNEUMOCOCCAL On: 10-Jun-2014 Intent VACCINE ([id number])By: Jessica Corona DO, DO, Kathleen PNEUM VAC ADLT/IMUMNOSPR, SBC/INTRM On: 10-Jun-2014 Intent ([id number])By: Jessica Corona DO Comments: lot: [id number]: 03/22/15site/route: L del/IMamt: 0.5mLVIS signed when applicableChelsJULIEN baird DO, Kathleen [id number] On: 10-Jun-2014 Intent FOR OBESITY, 15 MINUTES ([id number])By: Jessica Corona DO, DO, Kathleen BILATERAL MAMMOGRAMS ([id number])By: On: 04-Jun-2014 Jessica Lemus DO, DO, Kathleen EKG ([id number])By: Jessica Corona DO On: 04-Feb-2014 Intent Jessica Corona DO Comments: nsr no acute cg Eprescribed prescriptions ([id number])By: On: 16-Nov-2013 Intent Jessica Corona DO, DO, Kathleen gastric emptying studyBy: Chloe SCHROEDER, On: 10-Oct-2013 Intent Jessica Proctor DO FLU VAC, SPLIT, >3 YEARS, INTRAMUSC On: 06-Sep-2013 Intent ([id number])By: Addie Odell LPN Comments: Lot:[id number]:[id number]:0.5mlRoute:IMSite: L DltdGiven By: LAUREN Fontenot signed ADMINISTRATION OF INFLUENZA VIRUS On: 06-Sep-2013 Intent VACCINE ([id number])By: Addie Odell LPN EKG ([id number])By: Jessica Corona DO On: 26-Mar-2013 Intent Jessica Corona DO Comments: nsr no acute ischemic changes/ borderline LVH Eprescribed prescriptions ([id number])By: On: 26-Mar-2013 Intent RubenViola britton Eprescribed prescriptions ([id number])By: On: 23-Feb-2013 Intent Viola Goldsmith MAMMOGRAM, SCREENING, BOTH BREASTS On: 19-Jan-2013 Intent ([id number])By: Jessica Corona DO, DO, Kathleen CT - Abdomen & Pelvis (IV Contrast On: 28-Aug-2012 Intent Needed)By: Jessica Corona DO, DO, Kathleen Eprescribed prescriptions ([id number])By: On: 28-Aug-2012 Intent Addie Odell LPN DRAIN/INJECT, JOINT/BURSA ([id number])By: On: 25-Feb-2012 Intent Jessica Corona DO, DO, Comments: inject 2 cc marcaine 1 cc kenolog Jessica Radiology - Knee - RightBy: Chloe On: 31-Jan-2012 Jessica Mauricio DO, DO, Kathleen Eprescribed prescriptions ([id number])By: On: 25-Oct-2011 Jessica Lemus DO, DO, Kathleen TDAP VACCINE >7 IM ([id number])By: Chloe On: 02-Jul-2011 Jessica Mauricio DO, DO, Kathleen Comments: 0.5cc given im rt dltd lot [id number] exp 08-11-13 EKG ([id number])By: Jessica Corona DO On: 01-Feb-2011 Jessica Lemus DO Comments: nsr no acute changes-- borderline LVH -- but seen on echo best [facility] Z ([id number])By: Jessica Corona DO On: 01-Feb-2011 Intent Jessica Corona DO Comments: great parameters -- cgh in rx but b/c of cost and uncotnrolled=-- also add diuretic for new LVH-- Ultrasound - PelvisBy: Chloe SCHROEDER, On: 19-Aug-2010 Intent Jessica Proctor DO Comments: pelvic u/s Ultrasound - ThyroidBy: Chloe SCHROEDER, On: 21-May-2010 Intent Jessica Proctor DO Radiology - Knee - LeftBy: Chloe SCHROEDER, On: 10-Feb-2010 Intent Jessica Proctor DO MRI - Lumbar SpineBy: Chloe SCHROEDER, On: 18-Aug-2009 Intent Jessica Proctor DO EKG ([id number])By: Jessica Corona DO On: 18-Aug-2009 Intent Jessica Corona DO Comments: nsr no acute changes Pulse Oximetry ([id number])By: Chloe SCHROEDER, On: 05-Mar-2009 Intent Jessica Proctor DO Comments: 93% RA Aerosol Treatment (53263)By: Chloe On: 05-Mar-2009 Jessica Mauricio DO, DO, Kathleen Comments: better air exchange no wheeze Solu- Medrol Injection, 125mg On: 05-Mar-2009 Intent ([id number])By: Jessica Corona DO Comments: injection given in left glutues alvarado. Pt tolerated well. TWNY632/2011 Jessica SCHROEDER EKG ([id number])By: Jessica Corona DO On: 25-Feb-2008 Intent Jessica Corona DO Comments: nsr no acute ischemic changes Kenalog Injection, 10 mgm ([id number])By: On: 14-Apr-2007 Intent Omayra Foley MD Kenalog Injection, 10 mgm ([id number])By: On: 14-Apr-2007 Intent Omayra Foley MD Kenalog Injection, 10 mgm ([id number])By: On: 14-Apr-2007 Intent Omayra Foley MD Kenalog Injection, 10 mgm ([id number])By: On: 14-Apr-2007 Intent Omayra Foley MD Toradol Injection, 30 mg ([id number])By: On: 03-Apr-2007 Omayra West MD Planned Medications INJECTION, KETOROLAC TROMETHAMINE, PER 15 MG Ordered: 11-Apr-2015 Pending Jud Samaniego CNP Instructions Name Dates Details Non-smoker : How to access health information online Indication: Non-smoker Non-smoker : How to access health information online - Detail Indication: Non-smoker Non-smoker : Patient Instructions Indication: Non-smoker Non-smoker : How to access health information online - Detail Indication: Non-smoker Non-smoker : How to access health information online Indication: Non-smoker Non-smoker : Patient Instructions Indication: Non-smoker Body mass index 33.0-33.9, adult : How to access health information online Indication: Body mass index 33.0-33.9, adult Body mass index 33.0-33.9, adult : How to access health information online - Detail Indication: Body mass index 33.0-33.9, adult Body mass index 33.0-33.9, adult : Patient Instructions Indication: Body mass index 33.0-33.9, adult Epigastric pain : How to access health information online Indication: Epigastric pain Epigastric pain : How to access health information online - Detail Indication: Epigastric pain Epigastric pain : Patient Instructions Indication: Epigastric pain UTI (urinary tract infection) : How to access health information online Indication: UTI (urinary tract infection) UTI (urinary tract infection) : How to access health information online - Detail Indication: UTI (urinary tract infection) UTI (urinary tract infection) : Patient Instructions Indication: UTI (urinary tract infection) Non-smoker : How to access health information online Indication: Non-smoker Non-smoker : How to access health information online - Detail Indication: Non-smoker Non-smoker : Patient Instructions Indication: Non-smoker BMI 35.0-35.9,adult : How to access health information online Indication: BMI 35.0-35.9,adult BMI 35.0-35.9,adult : How to access health information online - Detail Indication: BMI 35.0-35.9,adult Lower back pain : Patient Instructions Indication: Lower back pain Non-smoker : How to access health information online Indication: Non-smoker Non-smoker : How to access health information online - Detail Indication: Non-smoker Non-smoker : Patient Instructions Indication: Non-smoker Hypertensive heart disease without congestive heart failure : obesity counseling Indication: Hypertensive heart disease without congestive heart failure Non-smoker : How to access health information online Indication: Non-smoker Non-smoker : How to access health information online - Detail Indication: Non-smoker Non-smoker : Patient Instructions Indication: Non-smoker BMI 36.0-36.9,adult : How to access health information online Indication: BMI 36.0-36.9,adult BMI 36.0-36.9,adult : How to access health information online - Detail Indication: BMI 36.0-36.9,adult BMI 36.0-36.9,adult : Patient Instructions Indication: BMI 36.0-36.9,adult BMI 35.0-35.9,adult : How to access health information online Indication: BMI 35.0-35.9,adult BMI 35.0-35.9,adult : How to access health information online - Detail Indication: BMI 35.0-35.9,adult BMI 35.0-35.9,adult : Patient Instructions Indication: BMI 35.0-35.9,adult Non-smoker : How to access health information online Indication: Non-smoker Non-smoker : How to access health information online - Detail Indication: Non-smoker Non-smoker : Patient Instructions Indication: Non-smoker Non-smoker : How to access health information online Indication: Non-smoker Non-smoker : How to access health information online - Detail Indication: Non-smoker Non-smoker : Patient Instructions Indication: Non-smoker Non-smoker : How to access health information online Indication: Non-smoker Non-smoker : How to access health information online - Detail Indication: Non-smoker Non-smoker : Patient Instructions Indication: Non-smoker GERD (gastroesophageal reflux disease) : Patient Instructions Indication: GERD (gastroesophageal reflux disease) GERD (gastroesophageal reflux disease) : How to access health information online Indication: GERD (gastroesophageal reflux disease) GERD (gastroesophageal reflux disease) : How to access health information online - Detail Indication: GERD (gastroesophageal reflux disease) GERD (gastroesophageal reflux disease) : Patient Instructions Indication: GERD (gastroesophageal reflux disease) GERD (gastroesophageal reflux disease) : How to access health information online Indication: GERD (gastroesophageal reflux disease) GERD (gastroesophageal reflux disease) : How to access health information online - Detail Indication: GERD (gastroesophageal reflux disease) GERD (gastroesophageal reflux disease) : Patient Instructions Indication: GERD (gastroesophageal reflux disease) Foot pain : How to access health information online Indication: Foot pain Foot pain : How to access health information online - Detail Indication: Foot pain Foot pain : Patient Instructions Indication: Foot pain Bronchitis : How to access health information online Indication: Bronchitis Bronchitis : How to access health information online - Detail Indication: Bronchitis Bronchitis : Patient Instructions Indication: Bronchitis Tendonitis, bicipital : How to access health information online Indication: Tendonitis, bicipital Tendonitis, bicipital : How to access health information online - Detail Indication: Tendonitis, bicipital Tendonitis, bicipital : Patient Instructions Indication: Tendonitis, bicipital BMI 34.0-34.9,adult : obesity counseling Indication: BMI 34.0-34.9,adult Hypertensive heart disease without congestive heart failure : Patient Instructions Indication: Hypertensive heart disease without congestive heart failure Hypertensive heart disease without congestive heart failure : Patient Instructions Indication: Hypertensive heart disease without congestive heart failure Nausea : Patient Instructions Indication: Nausea GERD (gastroesophageal reflux disease) : Patient Instructions Indication: GERD (gastroesophageal reflux disease) Nausea : Patient Instructions Indication: Nausea Hypertension : Patient Instructions Indication: Hypertension Hypertensive heart disease without congestive heart failure : Patient Instructions Indication: Hypertensive heart disease without congestive heart failure Hypercholesteremia : DISCONTINUED - LIPID PANEL ([id number]) Indication: Hypercholesteremia Hypercholesteremia : DISCONTINUED - TSH ([id number]) Indication: Hypercholesteremia Hypertensive heart disease without congestive heart failure : DISCONTINUED - URINALYSIS, W/ MICRO ([id number]) Indication: Hypertensive heart disease without congestive heart failure Hypertensive heart disease without congestive heart failure : DISCONTINUED - MICROALBUMIN: CREATININE RATIO ([id number]) AND ([id number]) Indication: Hypertensive heart disease without congestive heart failure Hypertensive heart disease without congestive heart failure : DISCONTINUED - METABOLIC PANEL, COMPREHENSIVE ([id number]) Indication: Hypertensive heart disease without congestive heart failure Hypertensive heart disease without congestive heart failure : DISCONTINUED - CBC WITH MANUAL DIFF ([id number]) Indication: Hypertensive heart disease without congestive heart failure Irritable Bowel Syndrome : Patient Instructions Indication: Irritable Bowel Syndrome Abdominal pain, acute, left lower quadrant : Patient Instructions Indication: Abdominal pain, acute, left lower quadrant Abdominal pain, acute, left lower quadrant : Patient Instructions Indication: Abdominal pain, acute, left lower quadrant Encounters Office Visit On: 08-Sep-2018 8:19 Encounter Reason: Follow up HypertensionEncounter Diagnosis: BMI 33.0-33.9,adult, Non-smoker, Hypertensive heart disease without congestive heart failure, Therapeutic drug monitoring End: 08-Sep-2018 9:17 [facility] Office Visit On: 04-Sep-2018 14:41 Encounter Reason: Follow up HypertensionEncounter Diagnosis: BMI 33.0-33.9,adult, Non-smoker, Hypertensive heart disease without congestive heart failure, Bacterial sinusitis End: 04-Sep-2018 15:36 [facility] Office Visit On: 21-Aug-2018 13:23 Encounter Reason: Follow up Hypertension - The patient has experienced follow up hypertension for months (increased atenolol to 50mg). The symptoms have been associated with family history of hypertension.Encounter Diagnosis: Non-smoker, End: 21-Aug-2018 14:07 Body mass index 33.0-33.9, adult, Hypertensive heart disease without congestive heart failure, Nausea [facility] Office Visit On: 07-Aug-2018 13:05 Encounter Reason: Abdominal pain - The onset of the pain has been gradual (has had the pain for a year or more is now worse) and has been occurring in a persistent pattern. The course has been increasing (over last sever End: 07-Aug-2018 14:30 al weeks). The pain is described as a moderate (will get severe at times right now moderate) dull ache and pressure sensation. The pain is described as being located in the epigastrium and upper abdomen . The pain radiates to the no radiation (starts in epigastric area and radiates from R shoulder into neck/back). The symptoms have no aggravating factors. The symptoms are relieved by antacids (does not usually help), belching, bowel movements and passing flatus. The symptoms have been associated with diarrhea (started yesterday 6-8 times is gone now) and nausea.Encounter Diagnosis: Epigastric pain, Gas pain, Non-smoker, Body mass index 33.0-33.9, adult, Cervical radiculopathy, Hypertensive heart disease without congestive heart failure, Nausea [facility] Phone Encounter On: 30-Jun-2018 14:22 Encounter Diagnosis: Epigastric pain End: 30-Jun-2018 14:24 [facility] Office Visit On: 21-Jun-2018 8:10 Encounter Reason: UTI - The urinary symptoms are described as urgency and groin pain. The symptoms have been occurring for 1 week. The urine is described as bloody. Note for Infection: History of prolapsed uterus, with End: 21-Jun-2018 8:45 A&P [address] Dr Oquendo Sep 2016.Toilet paper with blood bright red for urineEncounter Diagnosis: Non-smoker, BMI 35.0-35.9,adult, UTI (urinary tract infection), Groin pain [facility] Phone Encounter On: 15-Jun-2018 11:53 Encounter Diagnosis: Nausea End: 19-Jun-2018 7:49 [facility] Phone Encounter On: 05-Jun-2018 17:22 Encounter Diagnosis: Nausea End: 05-Jun-2018 17:24 [facility] Office Visit On: 02-Jun-2018 7:29 Encounter Reason: Shoulder Problem - This shoulder problem is without any known injury. The patient is right hand dominant. The injury involved the right shoulder. This occurred 1 week(s) ago. No changes in management we End: 02-Jun-2018 8:12 re made at the last visit. Symptoms include shoulder pain, tenderness and decreased range of motion. There is no radiation. The patient describes symptoms as moderate in severity and worsening. Current treatment includes application of heat. Note for Shoulder problem: she had injection in past that relieved many moons agoEncounter Diagnosis: BMI 35.0-35.9,adult, Non-smoker, Chronic scapular pain [facility] Office Visit On: 25-May-2018 8:47 Encounter Reason: Hip Problem - This condition occurred without any known injury. The injury involved the left hip and right hip (mostly right). Symptoms include hip problem. The symptoms are located in the left hip. Ons End: 25-May-2018 11:44 et was 4 day(s) after the injury. Associated symptoms include numbness in the leg (tingles). Note for Hip problem: Symptoms started about 4-5 days ago with back pain-stood for about 4-5 hours and ba ck pain started with pains shooting down both legs and then now its just right side. Pain in lower back, right buttock and down leg. Pain is described as dull ache in back, and sharp shooting pain in le g. Walking around pain is worse. No loss of bowel or bladder control. Has tried aleve, heat therapy and topical medications-they are helping. Going on a trip next week-[facility] bus trip.Encounter Diagnosis: Non-smoker, BMI 35.0-35.9,adult, Sciatica of right side, Lower back pain [facility] Office Visit On: 04-May-2018 11:27 Encounter Reason: Palpitations - Presentation included a forceful heartbeat and a fluttering heartbeat. Symptoms include palpitations.Encounter Diagnosis: BMI 35.0-35.9,adult, Non-smoker, Palpitations End: 04-May-2018 12:03 [facility] Office Visit On: 28-Apr-2018 7:06 Encounter Reason: Annual Medicare Exam - The patient had reviewed and updated the family history, medication/s, past medical history and social history. Yes the patient did have a mini mental status exam done today. The End: 28-Apr-2018 7:47 activities of daily living the patient needs help with are none. The patient has driven in past 6 months and put area rugs through house, but the patient has not had fecal incontinence, had urinary inco ntinence, missed or ran out of medications to soon, fallen in the past 6 months, gotten lost, has a medalert necklace or bracelet or put handrails in bathroom. The patient has completed the following pr eventative measures: PAP smear (2016), mammography (2017) and colonoscopy (2016). The patient does not have durable power of human relations teacher or living will. The patient has noticed nothing from the geriatic de pression scale. Other providers contributing to the patient's care are gastrologist.Encounter Diagnosis: BMI 35.0-35.9,adult, Non-smoker, Annual Medicare Phyiscal WITHOUT abnormal findings (Renamed from Encounter for general adult medical examination without abnormal findings), Colon cancer screening (Renamed from Encounter for screening for malignant neoplasm of colon), Encounter for screening mammogram for breast cancer (Renamed from Encounter for screening mammogram f or malignant neoplasm of breast), Postmenopausal (Renamed from Postmenopausal status), Hypertensive heart disease without congestive heart failure, Nutritional counseling [facility] Office Visit On: 13-Mar-2018 13:24 Encounter Reason: Follow up tests - Date: (03/08/18 labs)., [ADDITIONAL REASON] Follow up for chronic medical issues - The patient feels well with minor complai End: 13-Mar-2018 14:29 nts and is sleeping well. Patient has been compliant with instructions. Current medication use: no side effects and compliant with dosing regimen. The medical issues the patient is following up for include high blood pressure and high cholesterol. Encounter Diagnosis: BMI 36.0-36.9,adult, Epigastric pain, Common bile duct dilation, Nausea, Adult hypothyroidism, Hypercholesteremia, Hypertensive heart disease without congestive heart failure, Irritable bowel syndrome with diarrhea, Chronic scapular pain [facility] Phone Encounter On: 09-Mar-2018 15:19 Encounter Diagnosis: Epigastric pain End: 09-Mar-2018 15:20 [facility] Phone Encounter On: 03-Mar-2018 14:50 Encounter Diagnosis: Epigastric pain End: 03-Mar-2018 14:52 [facility] Office Visit On: 06-Feb-2018 12:48 Encounter Diagnosis: Right upper quadrant pain, Common bile duct dilation End: 06-Feb-2018 13:58 [facility] Phone Encounter On: 03-Feb-2018 15:45 [facility] End: 03-Feb-2018 15:47 Office Visit On: 27-Jan-2018 13:27 Encounter Reason: Abdominal pain - The onset of the pain has been gradual and has been occurring in an intermittent pattern for years. The course has been recurrent. The pain is described as a moderate dull ache. The sallie End: 27-Jan-2018 14:11 n is described as being located in the lower abdomen (crampy in nature gets relieved with bm-it will be a terrible diarrea- passing gas would help, bloating is terrible - no blood in stools- last colono scopy 2 yrs ago ??). The pain radiates to the back. The symptoms have no aggravating factors. The symptoms are relieved by bowel movements. The symptoms have been associated with bloating and diarrhea, while the symptoms have not been associated with bloody stools, constipation, fever or heartburn. Note for Pain: was seen back in for this issue. pt states it has been ongoing with no reliefEncounter Diagnosis: BMI 35.0-35.9,adult, Chronic scapular pain, Epigastric pain [facility] Phone Encounter On: 09-Jan-2018 11:07 Encounter Diagnosis: Encounter for screening mammogram for breast cancer (Renamed from Encounter for screening mammogram for malignant neoplasm of breast) End: 09-Jan-2018 11:09 [facility] Office Visit On: 09-Nov-2017 13:58 Encounter Reason: Follow up tests - Date: (10/28/17 labs).Encounter Diagnosis: BMI 34.0-34.9,adult, Non-smoker, Abnormal TSH, Adult hypothyroidism, Hypercholesteremia End: 09-Nov-2017 14:25 [facility] Office Visit On: 23-Sep-2017 10:41 Encounter Reason: Abdominal pain - The onset of the pain has been gradual and has been occurring in an intermittent pattern for years. The course has been recurrent. The pain is described as a moderate dull ache. The sallie End: 23-Sep-2017 11:22 n is described as being located in the lower abdomen (crampy in nature gets relieved with bm-it will be a terrible diarrea- passing gas would help, bloating is terrible - no blood in stools- last colono scopy 2 yrs ago ??). The pain radiates to the back. The symptoms have no aggravating factors. The symptoms are relieved by bowel movements. The symptoms have been associated with bloating and diarrhea, ??while the symptoms have not been associated with bloody stools, constipation, fever or heartburn.Encounter Diagnosis: BMI 35.0-35.9,adult, Non-smoker, GERD (gastroesophageal reflux disease), Gas pain, Chronic scapular pain, Nausea, Influenza vaccination declined (Renamed from Refused influenza vaccine) [facility] Office Visit On: 03-Aug-2017 10:35 Encounter Reason: Follow up for chronic medical issues - The patient feels well with minor complaints, has good energy level and is sleeping well. Patient has been compliant with instructions. Current medication use: no End: 03-Aug-2017 12:56 side effects and compliant with dosing regimen. Patient sleeps 7 hours per night. Nutrition: balanced diet and no supplemental vitamins & iron. The medical issues the patient is following up for inc lude All identified problems below, gastric reflux and high blood pressure.Encounter Diagnosis: BMI 35.0-35.9,adult, Non-smoker, GERD (gastroesophageal reflux disease), Hypertensive heart disease without congestive heart failure, Hypercholesteremia, Influenza vaccination declined (Renamed from Refused influenza vaccine), Irritable Bowel Syndrome (564.1), Spinal stenosis of lumbar region (724.02), Diverticulosis of colon, Nausea [facility] Office Visit On: 22-Dec-2015 8:36 Encounter Reason: Heartburn - The last clinic visit was week(s) ago. No changes in management were made at the last visit. Symptoms include chest discomfort, pain, acid taste in the mouth and sore throat. The pain is loc End: 22-Dec-2015 9:28 ated in the upper chest, substernal area and epigastric area. The patient describes the pain as aching and burning. There is no known event that preceded symptom onset. The symptoms occur intermittently . The patient describes this as severe and worsening. Current treatment includes antacids, H2 blockers and proton pump inhibitors.Encounter Diagnosis: GERD (gastroesophageal reflux disease), Chronic vaginitis, Indigestion (Renamed from Acid indigestion) [facility] Office Visit On: 10-Nov-2015 9:55 Encounter Reason: Heartburn - The last clinic visit was week(s) ago. No changes in management were made at the last visit. Symptoms include chest discomfort, pain, acid taste in the mouth and sore throat. The pain is loc End: 10-Nov-2015 10:37 ated in the upper chest, substernal area and epigastric area. The patient describes the pain as aching and burning. There is no known event that preceded symptom onset. The symptoms occur intermittently . The patient describes this as severe and worsening. Current treatment includes antacids, H2 blockers and proton pump inhibitors.Encounter Diagnosis: GERD (gastroesophageal reflux disease) [facility] Office Visit On: 22-Oct-2015 8:57 Encounter Reason: Heartburn - The last clinic visit was week(s) ago. No changes in management were made at the last visit. Symptoms include chest discomfort, pain, acid taste in the mouth and sore throat. The pain is loc End: 22-Oct-2015 10:59 ated in the upper chest, substernal area and epigastric area. The patient describes the pain as aching and burning. There is no known event that preceded symptom onset. The symptoms occur intermittently . The patient describes this as severe and worsening. Current treatment includes antacids, H2 blockers and proton pump inhibitors.Encounter Diagnosis: GERD (gastroesophageal reflux disease), Diarrhea [facility] Office Visit On: 26-Aug-2015 9:30 Encounter Reason: Earache - The onset of the earache has been gradual and has been occurring in a persistent pattern for 6 days. The course has been constant. The earache is described as a moderate pressure sensation. It End: 26-Aug-2015 10:03 affects the left ear. The pain affects the internal ear.Encounter Diagnosis: Eustachian tube dysfunction, Hearing loss, left [facility] Office Visit On: 14-Aug-2015 7:49 Encounter Reason: Foot Problem - The injury involved the right foot. Onset was 1 week(s) ago.Encounter Diagnosis: Foot pain, Foot injury, History of soft tissue injury End: 14-Aug-2015 8:52 [facility] Lab Order On: 03-Jul-2015 8:24 Encounter Diagnosis: SCREENING FOR BREAST CANCER (V76.10) End: 03-Jul-2015 8:28 [facility] Office Visit On: 26-May-2015 9:27 Encounter Reason: Cough - The last clinic visit was 1 month(s) ago. Symptoms include cough, dyspnea, wheezing, runny nose and stuffy nose. The cough is described as hacking, tight, wheezy and productive. Cough onset was sudden.Encounter Diagnosis: End: 26-May-2015 10:03 Bronchitis, Cough, Wheezing (786.07) [facility] Office Visit On: 19-May-2015 16:38 Encounter Reason: Shoulder Problem - This shoulder problem is without any known injury. The patient is right hand dominant. The injury involved the right shoulder. This occurred 1 week(s) ago. No changes in management we End: 19-May-2015 17:26 re made at the last visit. Symptoms include shoulder pain, tenderness and decreased range of motion. There is no radiation. The patient describes symptoms as moderate in severity and worsening. Current treatment includes application of heat. Note for Shoulder problem: she had injection in past that relieved many moons agoEncounter Diagnosis: Back pain, Shoulder Pain, Tendonitis, bicipital, Bronchitis [facility] Office Visit On: 05-May-2015 10:30 Encounter Reason: Cough - The last clinic visit was 10 day(s) ago. No changes in management were made at the last visit. Symptoms include cough, dyspnea, wheezing, runny nose, stuffy nose and sore throat. The cough is de End: 05-May-2015 13:49 scribed as productive (yellow). Cough onset was sudden 10 day(s) ago. There is no known event that preceded symptom onset. The cough occurs constantly. The episodes last for 10 days. Symptoms are descri bed as moderate in severity and worsening. Symptoms are exacerbated by lying down. Symptoms are not relieved by air conditioning, humidified air, warm drinks, warm weather, avoiding irritants, resting, lying down, sitting up, cough drops, cough medicine, acetaminophen, nonsteroidal anti-inflammatory drugs or inhaled bronchodilator use. Associated symptoms include postnasal drainage and headache, while associated symptoms do not include mouth breathing, noisy breathing, rapid breathing, hoarseness, painful swallowing, eye itching, nose itching, hemoptysis or night sweats. Current treatment includes a ntihistamines. By report there is good compliance with treatment. Pertinent medical history does not include asthma, chronic bronchitis, chronic obstructive pulmonary disease, cystic fibrosis, sinusitis , pulmonary disease, tuberculosis, environmental allergies, urticaria, congestive heart failure, myocardial infarction, stroke, diabetes, gastroesophageal reflux disease, neoplasm, obesity or up to date influenza vaccination. Pertinent family history does not include asthma, eczema, coagulation disorder or tuberculosis. Previous presentation included a cough, a runny nose, dyspnea and a sore throat.Encounter Diagnosis: Cough, BRONCHITIS, NOT SPECIFIED ACUTE OR CHRONIC (490.), Wheezing (786.07) [facility] Annotation/Addendum On: 15-Apr-2015 13:32 Encounter Diagnosis: Back pain End: 15-Apr-2015 13:35 [facility] Phone Encounter On: 11-Apr-2015 11:39 Encounter Diagnosis: Unspecified Diagnosis End: 11-Apr-2015 11:41 [facility] Office Visit On: 11-Apr-2015 7:59 Encounter Reason: Back Pain - This condition occurred in association with a new activity (Mowing yard with a different mower). The injury involved the lower back. This occurred 2 week(s) ago at home. The activity involve End: 11-Apr-2015 8:34 d prolonged sitting that occurred at home. The activity began 2 week(s) ago. Symptoms include back pain and stiffness, while symptoms do not include spasm. Symptoms are located in the left lower back. T he pain radiates to the shoulder (get stiff). The patient describes the pain as sharp and aching. Onset was gradual 2 day(s) after the injury. The symptoms occur constantly. The patient describes sympto ms as moderate in severity and unchanged. Symptoms are not exacerbated by standing, sitting, prolonged standing, prolonged sitting, lifting, bending, twisting, walking down stairs or recumbency. Symptom s are relieved by heat. Associated symptoms do not include fever, night sweats, abdominal pain, general malaise, weight loss, arm numbness, leg numbness, arm weakness, leg weakness, urinary incontinence , fecal incontinence, urinary retention or rash localized to the area of pain. The patient is not currently being treated for this problem. Previous presentation included lower back pain. This problem has not been previously treated. Encounter Diagnosis: Back pain [facility] Office Visit On: 10-Jun-2014 8:28 Encounter Reason: Follow up for chronic medical issues - The patient feels well with minor complaints, has good energy level and is sleeping well. Patient has been compliant with instructions. Current medication use: no End: 10-Jun-2014 12:36 side effects and compliant with dosing regimen. Patient sleeps 7 hours per night. Nutrition: balanced diet and no supplemental vitamins & iron. The medical issues the patient is following up for inc dai All identified problems below, gastric reflux, high blood pressure and high cholesterol. weight :., [ADDITIONAL REASON] Annual Medicare Exam - The patient had reviewed and updated the family history, medication/s, past medical history and social history. Yes the patient did have ( Alert) a mini mental status exam done today. The activities of daily living the patient needs help with are none. T he patient has driven in past 6 months, but the patient has not had fecal incontinence, had urinary incontinence, missed or ran out of medications to soon, fallen in the past 6 months, gotten lost, has a medalert necklace or bracelet, put area rugs through house or put handrails in bathroom. The patient does not have durable power of human relations teacher or living will. The patient has noticed nothing from the geriatic depression scale. Encounter Diagnosis: GERD (530.81), Hypercholesteremia (272.0), DISEASE, HYPERTENSIVE HEART NOS, W/O HF (402.90), Irritable Bowel Syndrome (564.1), Annual Medicare Physical (V70.0), BMI 34.0-34.9, ADULT (V85.34) [facility] Phone Encounter On: 04-Jun-2014 9:56 Encounter Diagnosis: SCREENING FOR BREAST CANCER (V76.10) End: 04-Jun-2014 9:57 [facility] Office Visit On: 04-Feb-2014 9:24 Encounter Reason: Follow up for chronic medical issues - The patient feels well with minor complaints, has good energy level and is sleeping well. Patient has been compliant with instructions. Current medication use: no End: 04-Feb-2014 16:29 side effects and compliant with dosing regimen. Patient sleeps 7 hours per night. Nutrition: balanced diet and no supplemental vitamins & iron. The medical issues the patient is following up for inc lude All identified problems below, high blood pressure and high cholesterol. blood pressure range : and weight :.Encounter Diagnosis: GERD (530.81), DISEASE, HYPERTENSIVE HEART NOS, W/O HF (402.90), Hypercholesteremia (272.0), Displacement of lumbar intervertebral disc without myelopathy (722.10) [facility] Phone Encounter On: 28-Dec-2013 15:33 Encounter Diagnosis: GERD (530.81) End: 28-Dec-2013 15:34 [facility] Office Visit On: 16-Nov-2013 7:15 Encounter Reason: Follow up acute care visit - The patient feels the same. Patient has been compliant with instructions. Current medication use: no side effects, compliant with dosing regimen and not considered effective End: 16-Nov-2013 7:52 by patient (dexilant ). Patient sleeps 6 hours per night. Impact of disease: emotional impact-mild. Nutrition: balanced diet and supplemental vitamins. The medical issues the patient is following up for include other (GERD ).Encounter Diagnosis: GERD (530.81), Indigestion (Renamed from Acid indigestion), Irritable Bowel Syndrome (564.1), Nausea (787.02) [facility] Office Visit On: 02-Nov-2013 6:59 Encounter Reason: Follow up Meds - The patient feels well with no complaints. Patient has been compliant with instructions. Current medication use: no side effects and compliant with dosing regimen., End: 02-Nov-2013 7:45 [ADDITIONAL REASON] Follow up tests - Date: (10/29/13 ). Current symptoms include other (nausea). Encounter Diagnosis: GERD (530.81), Nausea (787.02), DISEASE, HYPERTENSIVE HEART NOS, W/O HF (402.90), Indigestion (536.8) [facility] Office Visit On: 10-Oct-2013 11:03 Encounter Reason: Follow up for chronic medical issues - The patient feels well with minor complaints, has good energy level and is sleeping poorly. Patient has been compliant with instructions. Current medication use: n End: 10-Oct-2013 12:41 o side effects and compliant with dosing regimen. Patient sleeps 4 hours per night. Nutrition: inappropriate diet and no supplemental vitamins & iron. The medical issues the patient is following up for include All identified problems below, gastric reflux and high blood pressure. blood pressure range :, fasting blood sugars : and weight :.Encounter Diagnosis: DISEASE, HYPERTENSIVE HEART NOS, W/O HF (402.90), Diverticulosis (562.10), GERD (530.81), Osteoarthritis, Unspecified Whether Generalized or Localized, Involving other Specified Sites (715.98), Hyperglycemia (790.29), Nausea (787.02) [facility] Office Visit On: 03-Oct-2013 10:48 Encounter Reason: Nurse procedure visit - The symptoms have been associated with other (headache). blood pressure range :. Reason for visit: other (check bp)., End: 03-Oct-2013 11:51 [ADDITIONAL REASON] Sinus pain - The onset of the pain has been gradual. The pain is described as being located in the frontal area and the temporal area. The symptoms are aggravated by neck movement. Encounter Diagnosis: Hypertension (401.0), Sinus pressure (478.19) [facility] Office Visit On: 06-Sep-2013 9:36 Encounter Reason: Follow up Hypertension - The symptoms have been associated with obesity, while the symptoms have not been associated with anxiety or excessive caffeine intake. blood pressure range :. Note for Follow u End: 06-Sep-2013 9:59 p Hypertension: i didnt take the tenoroetc bc i didnt tolerate it after one day Encounter Diagnosis: NEED FOR PROPHYLACTIC VACCINATION AND INOCULATION AGAINST INFLUENZA (V04.81), DISEASE, HYPERTENSIVE HEART NOS, W/O HF (402.90) [facility] Office Visit On: 27-Jul-2013 7:53 Encounter Reason: Follow up tests - Date: (06/05/13 labs)., [ADDITIONAL REASON] Follow up for chronic medical issues - The patient feels well with minor complai End: 27-Jul-2013 10:09 nts, has good energy level and is sleeping well. Patient has been compliant with instructions. Current medication use: no side effects and compliant with dosing regimen. Patient sleeps 7 hours per night . Nutrition: balanced diet and no supplemental vitamins & iron. The medical issues the patient is following up for include All identified problems below, gastric reflux and high blood pressure. weight :. Encounter Diagnosis: GERD (530.81), DISEASE, HYPERTENSIVE HEART NOS, W/O HF (402.90), Irritable Bowel Syndrome (564.1), Diverticulosis (562.10), Abdominal Pain,LLQ (789.04), Diarrhea (787.91), Hypercholesteremia (272.0) [facility] Office Visit On: 26-Mar-2013 13:03 Encounter Reason: Follow up for chronic medical issues - The patient feels well with minor complaints, has good energy level and is sleeping poorly. Patient has been compliant with instructions. Current medication use: n End: 26-Mar-2013 16:16 o side effects, compliant with dosing regimen and considered effective by patient (seems better). Patient sleeps 6 hours per night. Nutrition: balanced diet and no supplemental vitamins & iron. The medical issues the patient is following up for include All identified problems below, gastric reflux, high blood pressure and high cholesterol. blood pressure range : and weight :.Encounter Diagnosis: Irritable Bowel Syndrome (564.1), Diverticulosis (562.10), Hypercholesteremia (272.0), DISEASE, HYPERTENSIVE HEART NOS, W/O HF (402.90), Epigastric pain (789.06), Nausea (787.02), Lower Leg Pain (719.46), Urinary frequency (788.41) [facility] Office Visit On: 23-Feb-2013 8:57 Encounter Reason: Follow up acute care visit - The patient feels the same (comes and goes). Patient has been compliant with instructions. Current medication use: no side effects and compliant with dosing regimen. The med End: 23-Feb-2013 9:25 ical issues the patient is following up for include other (abdominal pain).Encounter Diagnosis: Abdominal Pain,LLQ (789.04), Irritable Bowel Syndrome (564.1), Diverticulosis (562.10), Nausea (787.02) [facility] Phone Encounter On: 19-Jan-2013 15:43 Encounter Diagnosis: Well Woman Exam (V72.31) (Pap,Mammo,Routine Female) (Renamed from Well Woman V72.31 (p,m)) End: 19-Jan-2013 15:45 [facility] Office Visit On: 28-Aug-2012 13:03 Encounter Reason: Abdominal pain - The onset of the pain has been gradual and has been occurring in an intermittent pattern for years. The course has been recurrent. The pain is described as a moderate dull ache. The sallie End: 28-Aug-2012 13:58 n is described as being located in the lower abdomen (crampy in nature gets relieved with bm-it will be a terrible diarrea- passing gas would help, bloating is terrible - no blood in stools- last colono scopy 2 yrs ago ). The pain radiates to the back. The symptoms have no aggravating factors. The symptoms are relieved by bowel movements. The symptoms have been associated with bloating and diarrhea, while the symptoms have not been associated with bloody stools, constipation, fever or heartburn.Encounter Diagnosis: Abdominal Pain,LLQ (789.04), Abdominal Pain,RLQ (789.03) [facility] Office Visit On: 25-Feb-2012 7:33 Encounter Reason: Knee Pain - This condition occurred without any known injury (ususally its my Left knee - 2yrs ago and i got a cortisone shot nad no problems eversince-- now its the R kneee-- achy pain ??swolllen - deepthi End: 25-Feb-2012 12:41 ts to wt bear ). The injury involved the right knee. This occurred 1 week(s) ago. The activity began week(s) ago. No changes in management were made at the last visit. Symptoms include knee pain, stiffn ess, decreased range of motion, locking, difficulty bearing weight, difficulty ambulating and audible pop at the time of injury, while symptoms do not include warmth or redness. Symptoms are located in the right knee. There is no radiation. The patient describes the pain as sharp and aching (heat , tylenol rest -- not improving - over a week and ??actually getting worse- stiff ). Onset was sudden. The symptoms occur constantly. The patient describes symptoms as moderate in severity and worsening. Symptoms are exacerbated by motion at the knee (any activity).Encounter Diagnosis: Osteoarthritis, Unspecified Whether Generalized or Localized, Involving other Specified Sites (715.98), Lower Leg Pain (719.46) [facility] Office Visit On: 07-Feb-2012 13:42 Encounter Reason: Follow up tests - Date: (01/31/12 x-ray).Encounter Diagnosis: Osteoarthritis, Unspecified Whether Generalized or Localized, Involving other Specified Sites (715.98), Lower Leg Pain (719.46) End: 07-Feb-2012 15:09 [facility] Office Visit On: 31-Jan-2012 10:13 Encounter Reason: Knee Pain - This condition occurred without any known injury (ususally its my Left knee - 2yrs ago and i got a cortisone shot nad no problems eversince-- now its the R kneee-- achy pain ??swolllen - deepthi End: 31-Jan-2012 10:59 ts to wt bear ). The injury involved the right knee. This occurred 1 week(s) ago. The activity began week(s) ago. No changes in management were made at the last visit. Symptoms include knee pain, stiffn ess, decreased range of motion, locking, difficulty bearing weight, difficulty ambulating and audible pop at the time of injury, while symptoms do not include warmth or redness. Symptoms are located in the right knee. There is no radiation. The patient describes the pain as sharp and aching (heat , tylenol rest -- not improving - over a week and ??actually getting worse- stiff ). Onset was sudden. The symptoms occur constantly. The patient describes symptoms as moderate in severity and worsening. Symptoms are exacerbated by motion at the knee (any activity).Encounter Diagnosis: Lower Leg Pain (719.46) [facility] Office Visit On: 25-Oct-2011 11:04 Encounter Reason: Abdominal pain - The onset of the pain has been gradual and has been occurring in a persistent pattern for 1 month. The course has been constant. The pain is described as a moderate dull ache. The pain End: 25-Oct-2011 11:39 is described as being located in the upper abdomen. The pain radiates to the back. The symptoms have no aggravating factors. The symptoms have no relieving factors. The symptoms have been associated wit h diarrhea, ??while the symptoms have not been associated with constipation.Encounter Diagnosis: Epigastric pain (789.06) [facility] Office Visit On: 02-Jul-2011 8:36 Encounter Reason: Follow up Hypertension - The symptoms have been associated with obesity, while the symptoms have not been associated with anxiety or excessive caffeine intake. blood pressure range : (120's/70's)., End: 02-Jul-2011 10:24 [ADDITIONAL REASON] Follow up Meds - The patient feels well with minor complaints, has good energy level and is sleeping well. Patient has been compliant with instructions. Current medication use: no s riya effects and compliant with dosing regimen. Patient sleeps 7 hours per night. Nutrition: balanced diet. Encounter Diagnosis: DISEASE, HYPERTENSIVE HEART NOS, W/O HF (402.90) [facility] Phone Encounter On: 03-Jun-2011 15:17 Encounter Diagnosis: Hypertension (401.0) End: 03-Jun-2011 15:35 [facility] Office Visit On: 26-Apr-2011 9:11 Encounter Reason: Urinary problems - The onset of the urinary problems has been acute and they have been occurring in a persistent pattern for 3 days. The course has been increasing. The urinary problems are described as End: 26-Apr-2011 11:56 moderate. The urinary problem is characterized as frequency and urgency. There has been associated fever / chills.Encounter Diagnosis: Urinary frequency (788.41) [facility] Phone Encounter On: 20-Apr-2011 11:54 Encounter Diagnosis: Unspecified Diagnosis End: 20-Apr-2011 11:55 [facility] Phone Encounter On: 29-Mar-2011 17:15 Encounter Diagnosis: Allergic Rhinitis(477.9) End: 29-Mar-2011 17:17 [facility] Office Visit On: 25-Mar-2011 7:08 Encounter Reason: Follow up Hypertension - blood pressure range : (high side)., [ADDITIONAL REASON] Follow up Meds - The patient feels well with minor complaints, has good energy l End: 25-Mar-2011 8:08 evel and is sleeping well. Patient has been compliant with instructions. Current medication use: experiencing side effects (dizzy in am but goes away) and compliant with dosing regimen. Patient sleeps 7 hours per night. Nutrition: balanced diet. Encounter Diagnosis: Benign essential hypertension (401.1), DISEASE, HYPERTENSIVE HEART NOS, W/O HF (402.90), Viral infection, unspecified (079.99) [facility] Office Visit On: 25-Feb-2011 6:59 Encounter Reason: Follow up Hypertension - blood pressure range : (140 to 130's/80's)., [ADDITIONAL REASON] Follow up, Laboratory Test Results - Date: (02/17/11). Encounter Diagnosis: Benign essential hypertension (401.1), End: 25-Feb-2011 7:43 PVC, OTHER PREMATURE BEATS (427.69) [facility] Phone Encounter On: 19-Feb-2011 9:32 Encounter Diagnosis: Hypopotassemia (276.8) End: 19-Feb-2011 9:35 [facility] Annotation/Addendum On: 18-Feb-2011 9:06 Encounter Diagnosis: Hypopotassemia (276.8) End: 18-Feb-2011 9:09 [facility] Phone Encounter On: 17-Feb-2011 16:48 Encounter Diagnosis: Hypopotassemia (276.8) End: 17-Feb-2011 16:50 [facility] Office Visit On: 01-Feb-2011 8:33 Encounter Reason: Follow up for chronic medical issues - The patient feels well with minor complaints, has good energy level and is sleeping poorly. Patient has been compliant with instructions. Current medication use: n End: 01-Feb-2011 9:58 o side effects and compliant with dosing regimen. Patient sleeps 6 hours per night. Nutrition: balanced diet and no supplemental vitamins & iron. The medical issues the patient is following up for i nclude All identified problems below, gastric reflux, high blood pressure and high cholesterol. blood pressure range : and weight :.Encounter Diagnosis: GERD (530.81), DISEASE, HYPERTENSIVE HEART NOS, W/O HF (402.90), Hypercholesteremia (272.0) [facility] Phone Encounter On: 07-Sep-2010 15:20 Encounter Diagnosis: Dysuria (788.1) End: 07-Sep-2010 15:27 [facility] Office Visit On: 07-Sep-2010 9:50 Encounter Diagnosis: Unspecified Diagnosis End: 07-Sep-2010 10:06 [facility] Annotation/Addendum On: 21-Aug-2010 15:39 [facility] End: 21-Aug-2010 15:41 Annotation/Addendum On: 20-Aug-2010 15:38 Encounter Diagnosis: Unspecified Diagnosis End: 20-Aug-2010 15:41 [facility] Phone Encounter On: 19-Aug-2010 9:39 Encounter Diagnosis: Dysuria (788.1) End: 19-Aug-2010 9:40 [facility] Office Visit On: 13-Aug-2010 9:50 Encounter Reason: Follow up acute care visit - The patient feels the same. Patient has been compliant with instructions. Current medication use: no side effects ,compliant with dosing regimen and not considered effective End: 13-Aug-2010 10:39 by patient (still having s/sx of UTI after Bactrim). Patient sleeps 6 hours per night. Nutrition: balanced diet and supplemental vitamins. The medical issues the patient is following up for include UTI . Note for Follow up acute care visit: Pt called [facility] over Labor Day Weekend because she was having sx of a UTI. She started her on Macrobid, which didn't seem to help, so was seen in office 07/28/10 and given rx for Cipro, symptoms never resolved and so then 08/03/10 was started on Bactrim. No cultures were done. Today c/o urinary frequency, bladder spasming and pressure.- not really burning - just full ness and urgency- 15 minutes after goes feels like needs to go again-Encounter Diagnosis: Dysuria (788.1) [facility] Annotation/Addendum On: 03-Aug-2010 13:42 Encounter Diagnosis: Unspecified Diagnosis End: 03-Aug-2010 13:43 [facility] Office Visit On: 28-Jul-2010 14:56 Encounter Reason: Dysuria - The onset of the dysuria has been sudden and has been occurring in a persistent pattern for 4 days. The course has been constant. The symptoms have been associated with frequency and urgency, End: 28-Jul-2010 15:42 while the symptoms have not been associated with fever ,flank pain ,hematuria ,history of passing a stone ,incontinence ,nocturia or past history of urinary tract infections. Encounter Diagnosis: Dysuria (788.1) [facility] Office Visit On: 21-May-2010 7:42 Encounter Reason: Follow up for chronic medical issues - The patient feels well with minor complaints. Patient has been compliant with instructions. Current medication use: experiencing side effects (Lipitor- myalgias (s End: 21-May-2010 8:26 topped taking the med and now feeling better)) ,compliant with dosing regimen and considered effective by patient. Patient sleeps 6 hours per night. Nutrition: balanced diet. The medical issues the josette ent is following up for include All identified problems below ,gastric reflux ,high blood pressure ,high cholesterol and osteoarthritis. blood pressure range : (130-140/70-80). Encounter Diagnosis: Benign essential hypertension (401.1), Hypercholesteremia (272.0), Hyperglycemia (790.29), Thyromegaly (240.9), GERD (530.81) [facility] Visit On: 16-Feb-2010 9:57 Encounter Reason: Injections - The medication the patient is here to receive is other (2 cc marcaine, 1cc kenalog left knee). Encounter Diagnosis: Lower Leg Pain (719.46) End: 16-Feb-2010 10:11 [facility] Office Visit On: 13-Feb-2010 10:07 Encounter Reason: Follow up, Diagnostic Procedure Results - Diagnostic tests include X-Ray (02-10-10). Encounter Diagnosis: Lower Leg Pain (719.46), Osteoarthritis, Unspecified Whether Generalized or Localized, Involving other Specified Sites (715.98 End: 13-Feb-2010 11:11 ), Nausea (787.02) [facility] Office Visit On: 10-Feb-2010 14:35 Encounter Reason: Knee Pain - The onset of the knee pain has been acute and has been occurring in a persistent pattern for 2 days. The course has been increasing. The knee pain is moderate. The knee pain is characterized End: 10-Feb-2010 14:55 as a dull aching. The knee pain is described as being located in the entire knee. The knee pain is aggravated by any movement. There were no relieving factors. The symptoms have been associated with swathi int swelling (slight) ,medial pain ,lateral pain ,instability ,pain under patella ,painful ROM ,popping/crepitus ,difficulty arising from chair and difficulty going up and down stairs. Previous medications include Tylenol. Encounter Diagnosis: Lower Leg Pain (719.46) [facility] Office Visit On: 15-Sep-2009 8:10 Encounter Reason: Follow up tests - Diagnostic tests include MRI (lumbar spine). Date: (09/01/09). Follow up visit with no current symptoms. , [ADDITIONAL REASON] Follow up, Laboratory Test Results - Lab results: other (CBC, ESR, UA, TSH, RA, End: 15-Sep-2009 9:51 FLP, CMP, CRP, TRAN). Date: (08/28/09). Current symptoms/reason for visit include/s Follow up visit with no current symptoms. Encounter Diagnosis: LOW BACK PAIN WITH RADICULOPATHY (724.4), Spinal stenosis of lumbar region (724.02), Benign essential hypertension (401.1), Degenerative Disc Disease - Lumbar (722.52), Hypercholesteremia (272.0), Hyperglycemia (790.29), ARTHRALGIAS 719.40 [facility] Historical Summary On: 01-Sep-2009 13:05 [facility] End: 01-Sep-2009 13:06 Office Visit On: 18-Aug-2009 15:16 Encounter Reason: Follow up for chronic medical issues - The patient feels well with minor complaints ,has good energy level and is sleeping well. Patient has been compliant with instructions. Current medication use: no End: 18-Aug-2009 17:19 side effects and compliant with dosing regimen. Patient sleeps 5 hours per night. Nutrition: balanced diet and supplemental vitamins. The medical issues the patient is following up for include All ident ified problems below ,gastric reflux ,high blood pressure and high cholesterol. blood pressure range : and weight :. Encounter Diagnosis: Benign essential hypertension (401.1), Hypercholesteremia (272.0), ARTHRALGIAS 719.40, GERD (530.81), LOW BACK PAIN WITH RADICULOPATHY (724.4), Displacement of lumbar intervertebral disc without myelopathy (722.10) [facility] Office Visit On: 05-Mar-2009 15:34 Encounter Reason: Cough - The onset of the cough has been sudden and 10 days ago. The cough is characterized as productive of mucoid sputum. The amount of sputum produced is copious. The cough occurs all the time. The sy End: 05-Mar-2009 17:03 mptoms are aggravated by supine posture and particular position, but not by meals. The symptoms have been associated with hoarseness ,runny nose ,sore throat and wheezing, while the symptoms have not be en associated with fever. the color of the sputum is clear. Encounter Diagnosis: BRONCHITIS, NOT SPECIFIED ACUTE OR CHRONIC (490.), Wheezing (786.07), Elevated Blood Pressure without diagnosis of Hypertension (796.2) [facility] Office Visit On: 23-Feb-2008 10:24 Encounter Reason: Follow up, Laboratory Test Results - Date: (02-06-08 on face sheet). , [ADDITIONAL REASON] Follow up for chronic medical issues - The patient does not feel well. Patient h End: 25-Feb-2008 10:37 as been compliant with instructions. Current medication use: no side effects. Encounter Diagnosis: Hypertension (401.0), Hypercholesteremia (272.0), GERD (530.81), Nausea (787.02), Lower Leg Pain (719.46) [facility] Office Visit On: 14-Apr-2007 9:01 Encounter Reason: Follow up acute care visit - The patient feels the same. Patient has been compliant with instructions. Current medication use: no side effects ,compliant with dosing regimen and considered effective by End: 14-Apr-2007 9:30 patient. Patient sleeps 7 hours per night. Impact of disease: emotional impact-mild. Nutrition: balanced diet. The medical issues the patient is following up for include other (right shoulder ). Note fo r Follow up acute care visit: taking aleve and soma, little better can not sleeo because painEncounter Diagnosis: Shoulder pain (719.41) [facility] Office Visit On: 03-Apr-2007 16:55 Encounter Reason: Shoulder Pain - The onset of the shoulder pain has been gradual following no specific incident and has been occurring in a persistent pattern for 2 weeks. The course has been gradually worsening. The sh End: 03-Apr-2007 17:22 oulder pain is mild to moderate. The shoulder pain is characterized as a sharp stabbing. The shoulder pain is described as being located in the right shoulder and right side of the neck. The shoulder pa in is aggravated by any movement. There are no relieving factors. Associated features include: painful ROM ,decreased ROM ,difficulty overhead activities ,difficulty dressing oneself ,difficulty combing hairs ,difficulty hooking bra ,difficulty with pushing ,difficulty with pulling and difficulty with lifting. Note for Shoulder Pain: slept on wrong 1 week ago when [place], using soma, using asa, not able to take ibuprofen, , doing massotherapy Encounter Diagnosis: Shoulder pain (719.41) [facility] Office Visit On: 21-Feb-2007 15:34 Encounter Reason: Abdominal pain - The onset of the pain has been gradual and has been occurring in a persistent pattern for 1 months. The course has been constant. The pain is described as a mild burning. The pain is de End: 21-Feb-2007 16:14 scribed as being located in the epigastrium. The pain does not radiate. The symptoms have no aggravating factors. The symptoms are relieved by antacids (OTC pepcid complete ) and eating. Encounter Diagnosis: Epigastric pain (789.06), Nausea (787.02) [facility] Office Visit On: 19-Sep-2006 9:21 Encounter Reason: Leg pain - The leg pain began gradually over time (RELATED TO BACK H/O AND PAIN LEG CRAMPING THIGH CALF FEET TOE) and has been occurring for months. The symptoms have been occurring in an intermittent p End: 19-Sep-2006 9:59 attern. The symptoms are described as a cramping and are moderate in severity. The symptoms occur when lying down. There is involvement of the lower extremities (both). Aggravating factors include lying flat (WAKE UP 2 AM -- ITS A SRIDEVI HORSE). , [ADDITIONAL REASON] Follow up for chronic medical issues - The patient feels well with no complaints. Patient has been compliant with instructions. Current medication use: no side effects. Patient slee ps 7 hours per night. Impact of disease: no overall impact. Nutrition: balanced diet. The medical issues the patient is following up for include cardiac issues (H/O PVC) ,gastric reflux (WAS HAVING ABD PAIN GOT BETTER WHEN WENT BACK ON HER PPI) and high blood pressure. Encounter Diagnosis: GERD (530.81), Hypertension (401.0), Lower Leg Pain (719.46) [facility] Historical Summary On: 06-Sep-2006 14:00 [facility] End: 06-Sep-2006 14:06 Payers MedicareHumana/Supplement Francy bellamy guarantor
--- OUTSIDE RECORDS SUMMARY | 2018-12-17 16:58 | XMS RPT_ITS | Continuity of Care Document ---
:1950 Author Organization [facility] Address [address] [place] [address] Phone Care Team Providers Name Role Phone Jessica Corona DO Unavailable Huber MCKAY, Dr. Benitez Unavailable [facility], 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: Active Displacement of lumbar intervertebral disc [...] history of repair of cystocele Status: Active Headache (R51, 784.0) Status: Active Hearing loss, left (H91.92, 389.9) Comments: with fullness, will try antihistamine allergy med and observ Status: Active Hypercholesteremia (E78.00, 272.0) Comments: uncontrolledno one in family tolerates statins -- she doesnt want it nor whelcol or otc red rice yeast Status: Active Hyperkalemia (E87.5, 276.7) Status: Active Hypertension (I10, 401.9) Status: Active Hypertensive heart disease without congestive heart failure (I11.9, 402.90) Comments: spikes and Resistant to treatment --no snore no wittnessed apnea per Status: Active Hypopotassemia (E87.6, 276.8) Status: Active Irritable Bowel Syndrome (K58.9, 564.1) Comments: stable Status: Active Irritable bowel syndrome with diarrhea (K58.0, 564.1) Status: Active Lower back pain (M54.5, 724.2) Status: Active Nausea (R11.0, 787.02) Status: Active Nausea (R11.0, 787.02) Comments: chronic nausea -- use promethazine prn -- tums and gasx, mylanta has helped alot to minimize use -- using ppi( prevacid)had EGD -- trying FODMAP diet -- xifaxan got super nausea and sick from it Status: Active Nausea (R11.0, 787.02) 13-Feb-2010 Comments: off and on and recurring Status: Active Non-smoker (Z78.9, V49.89) Status: Active [...] Dates Details Atenolol 50 MG Oral Tablet 1 (one) Tablet bid for 90 days Quantity: 135 {Tablet} Refills: 3 Ordered:13-Sep-2018 Mayte Corona DO, DO, Kathleen Start : 13-Sep-2018 Active Augmentin 875-125 MG Oral Tablet 1 (one) Tablet bid for 7 days Quantity: 14 {Tablet} Refills: 0 Ordered:11-Sep-2018 Mayte Corona DO, DO, Kathleen Start : 11-Sep-2018 Active CloNIDine HCl 0.1 MG Oral Tablet 1 Tablet qd for bp >180 for 30 days Quantity: 30 {Tablet} Refills: 0 Ordered:13-Sep-2018 Mayte Corona DO, DO, Kathleen Start : 13-Sep-2018 Active Halobetasol Propionate 0.05 % External Ointment 1 (one) Ointment Ointment prn for 0 days Quantity: 1 {Tube} Refills: 1 Ordered:22-Dec-2015 Addie Odell LPN Start : 22-Dec-2015 Active HydroCHLOROthiazide 25 MG Oral Tablet 1 (one) Tablet daily for 0 days Quantity: 30 {Tablet} Refills: 3 Ordered:13-Sep-2018 Mayte Corona DO, DO, Kathleen Start : 13-Sep-2018 Active Norvasc 5 MG Oral Tablet 1 (one) Tablet daily for 0 days Quantity: 30 {Tablet} Refills: 3 Ordered:13-Sep-2018 Mayte Corona DO, DO, Kathleen Start : 13-Sep-2018 Active Prevacid 30 MG Oral Capsule Delayed Release [address] daily for 90 days Quantity: 90 {Capsule} Refills: 3 Ordered:26-Jul-2018 Mayte Corona DO, DO, Kathleen Start : 26-Jul-2018 Active PROAIR HFA, 108 (90 Base)MCG/ACT (Inhalation Aerosol Solution) 2 (two) Puff Puff tid for 0 days Quantity: 1 {Inhaler} Refills: 0 Ordered:09-Jun-2015 Danette SPRINGER Jud Gunter Start : 09-Jun-2015 Active Promethazine HCl 25 [...] 10 {Tablet} Refills: 0 Ordered:26-Apr-2011 Danette SPRINGER Jud Gunter Start : 26-Apr-2011 End : 01-May-2011 Inactive [...] Start : 25-May-2018 End : 28-May-2018 Inactive Comments:RKVKXOxkmjpel-602Eljlvyvw-750Llxxpgxlc-000OD Dpmk-576RX-Upcjwaiz of Right Side (M54.31)#Three CELEBREX, 200MG (Oral [...] days Quantity: 10 {Tablet} Refills: 0 Ordered:05-May-2015 Danette SPRINGER Mildred Start : 05-May-2015 End : 15-May-2015 Inactive Macrobid 100 MG Oral Capsule 1 (one) Capsule bid for 3 days Quantity: 6 {Capsule} Refills: 0 Ordered:21-Jun-2018 Danette SPRINGER Mildred Start : 21-Jun-2018 End : 24-Jun-2018 Inactive NexIUM 40 MG Oral Capsule Delayed Release 1 (one) Capsule qd for 30 days Quantity: 30 {Capsule} Refills: 3 Ordered:26-Jul-2018 Yessy Leblanc LPN Start : 30-Jun-2018 End : 26-Jul-2018 Inactive PredniSONE 10 MG Oral Tablet 1 [...] tid for 2 days Refills: 0 Ordered:03-Aug-2010 Phillyfreddyshubham SPRINGERJud Start : 28-Jul-2010 End : 30-Jul-2010 Inactive [...] days Quantity: 30 {Tablet} Refills: 3 Ordered:11-Apr-2015 Slarb INSURANCE CLAIMS SPECIALISTSandy Bach Start : 10-Oct-2013 End : 11-Apr-2015 Discontinued URISPAS, 100MG (Oral Tablet) 1-2 Tablet tid for 0 days Quantity: 20 {Tablet} Refills: 0 Ordered:01-Feb-2011 Addie Odell DONTE Start : 13-Aug-2010 End : 01-Feb-2011 Discontinued [...] Comments: improvign for cough and sx at nite -- try cont albluterol, do muciinex and [...] Total Completed Comments: 10/06 Date Value Details 12-Sep-2018 12 Lead Electrocardiogram Result: Comments: See Note; NOTES: [facility] Cardiovascular Services [address] [place] [address] 12 Lead EKG 09/09/18 0949 MR#: [id number] Acct: [id number] Name: NEISHA TOBAR ep #: [id number] : 1950 68 From: Ian Gudino MD Attending Dr: Status: DEP ER Ordering Dr: Anel Hunter MD Date: 09/09/18 Location: ED Sex: F C Admitted: Test Reason : HYPERTENSION Blood P ressure : / mmHG Vent. Rate : 059 BPM Atrial Rate : 059 BPM P-R Int : 178 ms QRS Dur : 094 ms QT Int : 426 ms P-R-T Axes : 021 -19 017 degrees QTc Int : 421 ms Sinus bradycardia with occasional P remature ventricular complexes Voltage criteria for left ventricular hypertrophy Abnormal ECG Confirmed by TERESE MCKAY, IAN ([id number]), society editor CHARITY VILLEGAS ([id number]) on 09/12/2018 11:06:08 AM Referred By: Devora Corona Confirmed By:IAN GUDINO MD 09/12/18 1106 Date Ian Gudino MD CC: Anel Hunter MD; Jessica Corona DO Signed 09-Sep-2018 Emergency Department Summary Result: Comments: See Note; NOTES: [facility] Medical Records Department [address] [place] [address] Emergency Department Summary 09/09/18 0934 MR#: [id number] Acct: [id number] Name: NEISHA TOBAR Rep #: [id number] : 1950 68 From: Anel Hunter MD [...] Hypertension, improved This note was generated with Big[employer] dictation software. It may contain incorrect words, spelling, and punctuation that were not noted in rev iew of the chart prior to signing ED Disposition - Plan for ED Patient: Chief Complaint: Hypertension Referrals: Chloe,Jessica, DO [Primary Care Provider] - What to do if you have Problems For any increased pain, shortness of breath, bleeding, nausea or vomiting, chest pain, or any unexpected problems, contact your Primary Care Provider. Call [facility] ([phone]) or report to the [facility]. Call 911 if necessary. 09/09/18 1633 <Electronically signed by Anel Hunter MD> Date Anel Hunter MD Cos igner Signature (If Indicated): Date CC: Jessica Corona DO 09-Sep-2018 Discharge Instruction Result: Comments: See Note; NOTES: [facility] Medical Records Department [address] [place] [address] Discharge Instruction 09/09/18 1203 MR#: [id number] Acct: [id number] Name: ELIZABETLydia SHANNAN Shubham Rep #: [id number] : 1950 68 From: Anel Hunter MD [...] your Primary Care Provider. Call [facility] ([phone]) or report to the closest Emergency Room. Call 911 if necessary. 09/09/18 1207 < Electronically signed by Anel Hunter MD> Date [facility] Signature (If Indicated): Date CC: Jessica Corona DO 09-Sep-2018 Brain/Head without Contrast Result: Comments: See Note; NOTES: [facility] Imaging Services [address] [place] [address] Brain/Head without Contrast MR#: [id number] Acct: [id number] Name: NEISHA TOBAR Rep #: [id number] : 1950 F 68 From: Italo Brown DO PCP: Jessica Corona DO Status: REG ER Study: Brain/Head without Contrast Date of Exam: 09/09/18 Exam# [id number] [facility]ing Dr[facility] BRAIN WITHOUT CONTRAST REASON FOR EXAM: [...] CC: Anel Hunter MD; Jessica Corona DO Heart Coordinator: Signed 21-Jun-2018 Abd Inc Decub and/or Erect Result: Comments: See Note; NOTES: [facility] Imaging Services [address] [place] [address] Abd Inc Decub and/or Erect MR#: [id number] Acct: [id number] Name: NEISHA TOBAR Rep #: [id number] : 1950 F 68 From: Tapan Gore MD PCP: Jessica Corona DO Status: REG CLI Study: Abd Inc Decub and/or Erect Date of Exam: 06/21/18 Exam# [id number] Ordering Dr: Jud Samaniego Y: X-RAY - [...] EDT , Service support , CC: Jud Samanieog TOOLING SUPERVISOR; Jessica Corona DO Heart Coordinator: Signed 02-Jun-2018 Cerv Spine 2 or 3 Views Result: Comments: See Note; NOTES: [facility] Imaging Services [address] [place] [address] Cerv Spine 2 or 3 Views MR#: [id number] Acct: [id number] Name: NEISHA TOBAR Rep #: [id number] : 1950 F 68 From: Jamil Paulson MD PCP: Jessica Corona DO Status: REG CLI Study: Cerv Spine 2 or 3 Views Date of Exam: 06/02/18 Exam# [id number] Ordering Dr: Jessica Corona DO UDY: X-RAY - CERVICAL SPINE REASON FOR EXAM: [...] Service support , CC: Jessica Corona DO Heart Coordinator: Signed 25-May-2018 L/S Spine Min 4 Views Result: Comments: See Note; NOTES: [facility] Imaging Services [address] [place] [address] L/S Spine Min 4 Views MR#: [id number] Acct: [id number] Name: NEISHA TOBAR Rep #: [id number] : 1950 F 68 From: Mikayla Guerrier MD PCP: Jessica Corona DO Status: REG CLI Study: L/S Spine Min 4 Views Date of Exam: 05/25/18 Exam# [id number] Ordering Dr: Addie Mallory TOOLING SUPERVISOR-C STUDY: X -RAY - LUMBAR SPINE REASON [...] , CC: DEYSI Mallory; Jessica Corona DO Heart Coordinator: Signed 09-May-2018 Dexa Bone Density Study Result: Comments: See Note; NOTES: [facility] Imaging Services [address] [place] [address] Dexa Bone Density Study MR#: [id number] Acct: [id number] Name: NEISHA TOBAR Rep #: [id number] : 1950 F 68 From: Kvng Cutler MD PCP: Jessica Corona DO Status: REG CLI Study: Dexa Bone Density Study Date of Exam: 05/09/18 Exam# [id number] Ordering Dr: Jessica Corona DO STUDY: DUAL [...] Kvng Cutler MD at 8:25 EDT Tel [phone], Service support , CC: Jessica Corona DO Heart Coordinator: Signed 14-Feb-2018 MRCP Abdomen without Contrast Result: Comments: See Note; NOTES: [facility] Imaging Services [address] [place] [address] MRCP Abdomen without Contrast MR#: [id number] Acct: [id number] Name: NEISHA TOBAR Rep #: [id number] : 1950 F 68 From: Vj Rajput MD PCP: Jessica Corona DO Status: REG CLI Study: MRCP Abdomen without Contrast Date of Exam: 02/14/18 Exam# [id number] Ordering Dr: Rigo Corona DO STUDY: MR [...] Service support , CC: Jessica Corona DO Heart Coordinator: Signed 03-Feb-2018 Abdomen Limited Result: Comments: See Note; NOTES: [facility] Imaging Services [address] [place] [address] Abdomen Limited MR#: [id number] Acct: [id number] Name: NEISHA TOBAR Rep #: [id number] D OB: 1950 F 68 From: Kvng Cutler MD PCP: Jessica Corona DO Status: REG CLI Study: Abdomen Limited Date of Exam: 02/03/18 Exam# [id number] Ordering Dr: Jessica Corona DO STUDY: ABDOMINAL [...] Kvng Cutler MD at 13:52 EDT Tel [phone], Service support , CC: Jessica Corona DO Heart Coordinator: Signed 31-Jan-2018 SCREENING MAMM (CAD), BILAT Result: Comments: See Note; NOTES: [facility] Imaging Services [address] [place] [address] SCREENING MAMM (CAD), BILAT MR#: [id number] Acct: [id number] Name: NEISHA TOBAR Rep #: [id number] : 1950 F 67 From: Kvng Cutler MD PCP: Jessica Corona DO Status: REG CLI Study: SCREENING MAMM (CAD), BIL Date of Exam: 01/31/18 Exam# [id number] Ordering Dr: Lidia Corona DO MAMMOGRAPHY - [...] delay biopsy of a clinically suspicious abnormality. [id number] Electronically Signed: Kvng Cutler MD at 14:26 EDT Tel [phone], Service supp ort , CC: Jessica Corona DO Heart Coordinator: Signed 28-Aug-2015 Bilat Scrn Digital AND CAD Result: Comments: See Note; NOTES: [facility] Imaging Services [address] [place] [address] Breast Imaging Report MR#: [id number] Acct: [id number] Name: NEISHA TOBAR Rep # : [id number] : 1950 F 65 From: Kvng Cutler MD PCP: Jessica Corona DO Status: REG CLI Study: Leighann España Digital AND CAD Date of Exam: 08/28/15 Exam# [id number] Ordering Dr: Raymond Corona DO MAMMOGRAPHY - [...] be sent to the patient by the [facility] within 30 days. Approximately 10% of breast cancers are not detected by mammography. A normal mammogram should not delay biopsy of a clinically suspicious abnormality. Electronically Mirian d: Kvng Cutler MD at 8:05 EDT Tel [phone], Service support [phone], CC: Jessica Corona DO Heart Coordinator: Signed 03-Jun-2015 PT Discharge Summary Result: Comments: See Note; NOTES: [facility] Physical Therapy [facility] [address] [place], [place] [address] Fax REHABILITATION SERVICES DISCHARGE SUMMARY MR#: [id number] Acct: [id number] Name: NEISHA TOBAR Rep #: [id number] : 1950 65 From: Sandy Nelson Referring [...] you once again for the referra l melissa Ortega to our clinic. Sandy Nelson, PT T: NTS JOB: [id number] <Electronically signed by Sandy Nelson > 06/03/15 1726 CC: Signed 26-May-2015 Chest PA and Lateral Result: Comments: See Note; NOTES: [facility] Imaging Services [address] [place] [address] Radiology Report MR#: [id number] Acct: [id number] Name: NEISHA TOBAR Rep #: [id number] : 1950 F 65 From: Zoila Allen MD PCP: Jessica Corona DO Status: REG CLI Study: Chest PA and Lateral Date of Exam: 05/26/15 Exam# [id number] Ordering Dr: Jud Samaniego STUDY: X-RAY C [...] MD at 12:07 EDT , Service support [phone], RAD /Chest PA and Lateral IMPRESSION: There is a left midlung field calcified granuloma. There is bilateral lower lobe scarring/atelectasis. No radiographic evidence of bronchitis. Electronically Sig kyle: Zoila Allen MD at 12:07 EDT , Service support [phone], CC: Jud Corona DO Heart Coordinator: Signed 13-May-2015 Inital Evaluation - PT Result: Comments: See Note; NOTES: [facility] [place] [address] Fax REHABILITATION SERVICES INITIAL EVALUATION MR#: [id number] Acct: [id number] Name: NEISHA TOBAR Rep #: [id number] : 1950 65 From: Sandy Nelson Referring [...] needed. Sandy Nelson, PT T: NTS JOB: [id number] <Electronically signed by Sandy Nelson > 05/13/15 0818 CC: Signed For Medicare only, by signing this I certify the plan of care. Physicians Signature Date 16-Apr-2015 L/S Spine Min 4 Views Result: Comments: See Note; NOTES: [facility] Imaging Services [address] [facility] [place] [address] Radiology Report MR#: [id number] Acct: [id number] Name: NEISHA TOBAR Rep #: [id number] : 1950 F 65 From: Rod Pollard DO PCP: Jessica Corona DO Status: REG CLI Study: L/S Spine Min 4 Views Date of Exam: 04/16/15 Exam# [id number] Ordering Dr: Jud Samaniego STUDY: X-RA Y [...] detailed above. Elect ronically Signed: Rod Pollard at 16:48 EDT Tel [phone], Service support [phone], RAD/L/S Spine Min 4 Views IMPRESSION: Degenerative ch anges of the spine, as detailed above. Electronically Signed: Rod Pollard at 16:48 EDT Tel [phone], Service support [phone], CC: Jud Samaniego; Rigo Corona DO Heart Coordinator: Signed 11-Jun-2014 Bilat Scrn Digital & CAD Result: Comments: See Note; NOTES: [facility] Imaging Services [address] [place] [address] Breast Imaging Report MR#: [id number] Acct: [id number] Name: NEISHA TOBAR Rep #: [id number] : 1950 F 64 From: Ian Lamas MD PCP: Jessica Corona DO Status: REG CLI Exam# [id number] Ordering Dr: Jessica Corona DO MAMMOGRAPHY - [...] 17:24 EDT Tel , Ser vice support [phone], CC: Jessica Corona DO Heart Coordinator: Signed 29-Oct-2013 Gastric Emptying Study Result: Comments: See Note; NOTES: [facility] Imaging Services [address] [place] [address] Nuclear Medicine Report MR#: [id number] Acct: [id number] Name: ELIZABETNEISHA Shubham Rep #: [id number] : 1950 F 63 From: Celestine Garza DO PCP: Status: REG CLI Study: Gastric Emptying Study Date of Exam: 10/29/13 Exam# [id number] Ordering Dr: Jessica Corona DO CLINICAL: 63 [...] M.D. 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 Exercise History Comments: Light Status: Active Living Situation Comments: Lives with spouse Status: Active No Drug Use Status: Active Tobacco/Smoke Exposure Comments: Exposed to passive smoke 02/07/12 Status: Active Vital Signs Date Test Result Details :56 Pulse 65 /min Comments: Pattern: Regular Respiration Rate 18 /min Comments: Pattern: Unlabored O2 SAT 97 % Comments: Room air BP Systolic 190 mm[Hg] Comments: Patient Position: Sitting; Cuff Location: Left Arm; Cuff Size: Large BP Diastolic 88 mm[Hg] Comments: Patient Position: Sitting; Cuff Location: Left Arm; Cuff Size: Large Weight 196 lb Height 64 in Body Mass Index Calculated 33.64 kg/m2 Body Surface Area Calculated 1.94 m2 15-Xdf-44048:24 Comments: recheck 230/100 Temperature 98 f Comments: [...] kg/m2 Body Surface Area Calculated 1.94 m2 :14 Comments: recheck bp 143/115 but pt states [...] see. but her [place] app[facility] [place] [facility] Pulse 70 /min Comments: Pattern: Regular [...] Arm; Cuff Size: Large Height 64 in :06 Pulse 60 /min Comments: Pattern: Regular Respiration [...] Arm; Cuff Size: Standard Weight 198 lb 1-Geronimo-91699:49 Pulse 68 /min Comments: Pattern: Regular Respiration [...] Details :38 Basic Metabolic Profile (BMP) Comments: [facility] [address] [place], [place], [address] GAP 7 (Normal) Range: 5-15 CO2 27.0 [...] A.D.A. criteria.Please note revised GLUCOSE reference range pravqwhvi14/02/2018. :38 CBC W/Diff, Automated Comments: [facility] [address] [place], [place], [address] Absolute Lymph 1.21 {X10_3/ul} (Normal) Range: 0.83-4.51 [...] 4.2-5.4 WBC 5.8 K/mm3 (Normal) Range: 4.4-11.0 73-Qdk-949310:49 Basic Metabolic Profile (BMP) Comments: [facility] [address] [place], [place], [address] GAP 5 (Normal) Range: 5-15 CO2 30.0 [...] A.D.A. criteria.Please note revised GLUCOSE reference range uqhbivpgp42/02/2018. 5-Zfs-140486:47 URINE KVNG CULTURE-HE COL Comments: PERFORMED BY: [facility] [id number] Information: [id number] SRC:UR COUNT (96370) Antimicrobial MIHEAD (Normal) Comments: S = Susceptible; [...] Final report Culture,Comprehensive (Abnormal) 21-Jun-20188:17 Urinalysis, Office (89006) UA - LEUKOCYTE ESTERASE Negative (Normal) UA - NITRITE Negative (Normal) URINE UROBILINGN HE TIMED Normal mg/dL (Normal) UA - PROTEIN Negative mg/dL (Normal) UA - PH 7.5 (Normal) UA - BLOOD Negative (Normal) UA - SPECIFIC GRAVITY 1.010 (Normal) UA - KETONES Negative mg/dL (Normal) UA - BILIRUBIN Negative (Normal) UA - GLUCOSE Negative (Normal) 64-Eoe-09186:39 CBC, PLATELETS & AUT DIFF Comments: PATIENT NOT FASTINGPERFORMED BY: [employer] [facility] Emldok4757 [facility] [id number] ([id number]) Immature Grans (Abs) 0.0 {x10E3/uL} (Normal) Range: [...] 3.77-5.28 WBC 4.8 {x10E3/uL} (Normal) Range: 3.4-10.8 33-Lyo-29124:39 C-REACT PROT HIGH SENS(hsCRP) Comments: PATIENT NOT FASTINGPERFORMED BY: [employer] Pvgbbc4247 [facility] [id number] (98231) C-Reactive Protein, Cardiac 2.22 mg/L (Normal) Range: 0.00-3.00 Comments: Relative Risk for Future Cardiovascular Event Low <1.00 Average 1.00 - 3.00 High >3.00 19-Umx-18635:39 ESR-F (SED RATE ERYTHROCYTE - Comments: PATIENT NOT FASTINGPERFORMED BY: [facility] CenterWxwbst7784 [facility] [id number] FEMALE) (83397) Sedimentation Rate-Westergren 9 mm/h (Normal) Range: 0-40 :39 LDH (LD) (LACTATE DEHYDROGENASE) Comments: PATIENT NOT FASTINGPERFORMED BY: [facility] Vjnpmu1332 [facility] [id number] (11640) LDH 209 [iU]/L (Normal) Range: 119-226 Hemoglobin A1c 5.5 % (Normal) Comments: PATIENT NOT FASTINGPERFORMED BY: [facility]6370 [facility] [id number] 3:06 Range: 4.8-5.6 Comments: . Pre-diabetes: 5.7 - 6.4 Diabetes: >6.4 Glycemic control for adults with diabetes: <7.0 Written Authorization WAR (Normal) Comments: PATIENT NOT FASTINGPERFORMED BY: [facility]6370 [facility] [id number] 3:06 Comments: Written Authorization Received.Authorization received from ANNETTE POWELL LPN [id number] by Lidia Reddy 45-Ihg-908801:06 TSH ([id number]) Comments: PATIENT NOT FASTINGPERFORMED BY: [facility]6370 [facility] [id number] TSH 2.370 {uIU/mL} (Normal) Range: 0.450-4.500 57-Hdc-153823:06 METABOLIC PANEL, COMPREHENSIVE Comments: PATIENT NOT FASTINGPERFORMED BY: [facility]6370 [facility] [id number] (36554) ALT (SGPT) 19 [iU]/L (Normal) Range: 0-32 [...] 8-27 Glucose 102 mg/dL (Abnormal) Range: 65-99 49-Ich-455715:06 CBC W/AUTO DIFF WBC (34259) Comments: PATIENT NOT FASTINGPERFORMED BY: [facility] Eoxaqs6520 [facility] [id number] Immature Grans (Abs) 0.0 {x10E3/uL} (Normal) Range: [...] (Normal) Range: 3.4-10.8 :56 Free T3 Comments: [facility] [address], [address] FREE T3 2.7 pg/mL (Normal) Range: 2.18-3.98 :56 Lipid Profile Comments: [facility] [address] [place], [address] VLDL 34 mg/dL (Normal) Range: 5-40 LDL [...] mg/dL High Risk :56 Liver Profile Comments: [facility] [address] [place], [address] ; ov 03/20 D BILI 0.12 mg/dL (Normal) Range: 0.00-0.30 T BILI 0.50 mg/dL (Normal) Range: 0.20-1.00 ALT 24 U/L (Normal) Range: 13-56 ALK P 67 U/L (Normal) Range: 45-117 AST 19 U/L (Normal) Range: 15-37 GLOB 3.7 g/dL (Normal) Range: 2.2-4.2 ALB 3.8 g/dL (Normal) Range: 3.2-5.0 T PROT 7.5 g/dL (Normal) Range: 6.4-8.2 :56 T4 Free Direct Comments: [facility] [address] [place], [place], [address] T4 FREE DIRECT 0.97 ng/dL (Normal) Range: 0.76-1.46 36-Msd-89992:56 Thyroid Stim Hormone (TSH) Comments: [facility] [address] [place], [place], [address] TSH 3.42 {uIU/mL} (Normal) Range: 0.358-3.74 7-Gzm-640379:52 GGTP 30 U/L (Normal) Comments: [facility] [address] [place], [place], [address] Range: 5-55 3-Osa-930069:52 Liver Profile Comments: [facility] [address] [place], [place], [address] D BILI 0.15 mg/dL (Normal) Range: 0.00-0.30 T BILI 1.10 mg/dL (Abnormal) Range: 0.20-1.00 ALT 31 U/L (Normal) Range: 12-78 ALK P 61 U/L (Normal) Range: 45-117 AST 21 U/L (Normal) Range: 15-37 GLOB 3.8 g/dL (Normal) Range: 2.2-4.2 ALB 3.8 g/dL (Normal) Range: 3.4-5.0 Comments: Please note revised Albumin AND Globulin reference rangeeffective 2017. T PROT 7.6 g/dL (Normal) Range: 6.4-8.2 4-Lkv-506359:36 Bilirubin, Direct Comments: LIVER AND GGTP FOR [facility] REST FOR [facility] [address] [place], [address] D BILI 0.14 mg/dL (Normal) Range: 0.00-0.30 :36 CBC W/Diff, Automated Comments: LIVER AND GGTP FOR [facility] [address] [place], [address] Absolute Lymph 1.45 {X10_3/ul} (Normal) Range: [...] 4.2-5.4 WBC 6.4 K/mm3 (Normal) Range: 4.4-11.0 9-Obo-246150:36 Comprehensive Metabolic Profil Comments: LIVER AND GGTP FOR [facility] [address] [place], [address] GAP 9 (Normal) Range: 5-15 [...] 7-18 GLU 91 mg/dL (Normal) Range: 70-110 9-Eky-937842:36 GGTP 22 U/L (Normal) Comments: LIVER AND GGTP FOR [facility] [address] [place], [address] Range: 5-55 5-Nys-843288:36 Lipid Profile Comments: LIVER AND GGTP FOR [facility] [address], [address] VLDL 56 mg/dL (Abnormal) Range: 5-40 LDL [...] Ratio,Random UR Comments: LIVER AND GGTP FOR [facility] [address] [place], [address] MALB:CREAT 38.1 {mg/g_CRE} (Abnormal) MICROALBUMIN,UR 43.8 mg/L (Normal) UR CREAT 115.00 mg/dL (Normal) 3-Wht-981119:36 Thyroid Stim Hormone (TSH) Comments: LIVER AND GGTP FOR [facility] [address] [place], [address] TSH 4.13 {uIU/mL} (Abnormal) Range: 0.358-3.74 :36 Urinalysis, Complete Comments: LIVER AND GGTP FOR [facility] was Urine Obtained? [facility] [address] [place], [address] HYALINE CAST 0-5 SEEN {/lpf} Range: 0-5 [...] BIOPSY (CHOOSE SITE) See Note (Normal) Comments: [facility] [address] [place], [place], [address] 0:00 Comments: Patient: NEISHA TOBAR : 1950 (66/F) Acct Num: [id number] Phys: MoralesSteve durant Unit Num: [id number] Loc: LABSPEC Specimen: [id number] Received: 02/11/16 - 0754 Spec Type: COLON BX TISSUES TISSUES: GROSS DESCRIPTION Received is one container labeled with the patient name and designated biopsy polyp right colon. The specimen consists of multiple irre gular fragments of light ramirez soft tissue that in aggregate measure 0.2 x 0.1 x 0.1 cm. The specimen is totally submitted in one cassette. / AM: 02/10/16 TC:5 CPT:30517 HEADER OPERATION: Colon oscopy with biopsy PRE-OP DIAGNOSIS: High-risk screen/polyp TISSUE SUBMITTED: Biopsy, polyp, right colon - rule out adenoma MICROSCOPIC DESCRIPTION Slides are reviewed. MICROSCOPIC DIAGNOS IS Right colon polyp, biopsy: Hyperplastic polyp. AM:crow 02/11/16 Signed Samuel Acevedo 02/11/16 <signature on file> C difficile Toxins A+B, Negative (Normal) Comments: PATIENT NOT FASTINGPERFORMED BY: [facility] [id number] Cornell Morrell MD [id number] 3:19 EIA Cryptosporidium EIA Negative (Normal) Comments: PATIENT NOT FASTINGPERFORMED BY: [facility]6370 [facility] [id number] 3:19 :19 Giardia, EIA, Ova/Parasite Comments: PATIENT NOT FASTINGPERFORMED BY: [facility]6370 [facility] [id number] Giardia lamblia Ag, Negative (Normal) EIA Result 1 NOCP (Normal) Comments: No ova, cysts, or parasites seen. Ova + Parasite Exam Final report Comments: These results were obtained using wet preparation(s) and trichromestained smear. This test does not include testing for Cryptosporidiumparvum, Cyclospora, or Microsporidia. (Normal) : Occult Blood, Fecal, Negative (Normal) Comments: PATIENT NOT FASTINGPERFORMED BY: [facility]6370 [facility] [id number] 19 IA :19 Stool Culture Comments: PATIENT NOT FASTINGPERFORMED BY: [address] [id number] Information: SRC:ST STOOL E coli Shiga Toxin EIA Negative (Normal) Result 1 NCI (Normal) Comments: No Campylobacter species isolated. Campylobacter Culture Final report (Normal) Result 1 NSS (Normal) Comments: No Salmonella or Shigella recovered. Salmonella/Shigella Screen Final report (Normal) :19 White Blood Cells (WBC), Comments: PATIENT NOT FASTINGPERFORMED BY: [place] [id number] [facility] [id number] Stool Result 1 NWBC (Normal) Comments: No white blood cells seen. White Blood Cells (WBC), Final report (Normal) Stool :54 CBC W/AUTO DIFF WBC Comments: PATIENT NOT FASTINGPERFORMED BY: [address] [id number] Information: [id number] (37002) Immature Grans (Abs) 0.0 {x10E3/uL} (Normal) Range: [...] PANEL, COMPREHENSIVE Comments: PATIENT NOT FASTINGPERFORMED BY: [facility]81 [facility] [id number] (04913) ALT (SGPT) 19 [iU]/L (Normal) Range: 0-32 [...] 99 mg/dL (Normal) Range: 65-99 :54 TSH (39116) Comments: PATIENT NOT FASTINGPERFORMED BY: [facility] Qzpaja4182 [facility] [id number] TSH 2.210 {uIU/mL} (Normal) Range: 0.450-4.500 :05 Urinalysis, Office (82617) UA - LEUKOCYTE ESTERASE Negative (Normal) UA [...] CHOL 310 mg/dL (Abnormal) Comments: <200 mg/dL Jvtbdsmtm192-490 mg/dL Borderline>240 mg/dL High Risk TRIG 185 [...] (Normal) UCLAR Clear (Normal) UCOL Yellow (Normal) 61-Fsy-670381:26 HgA1C , Office (29205) HgA1C , Office 5.7 % (Normal) Range: [...] CHOL 286 mg/dL (Abnormal) Comments: <200 mg/dL Egaggbhar862-712 mg/dL Borderline>240 mg/dL High Risk :14 MIACRE tMICROCREAT <TEST NOT PERFORMED> {mg/g_CRE} (Normal) MIALB < 5.0 mg/L (Normal) CREU 18.4 mg/dL (Normal) :14 TSH 3.54 {uIU/mL} (Normal) Range: 0.358-3.74 :14 UAC UMUC 0 SEEN {/hpf} (Normal) UBAC 0 [...] (Normal) UCLAR Clear (Normal) UCOL Yellow (Normal) 3-Gzm-342609:43 BILAT SCRN DIGITAL & CAD Radiology Report [...] Cutler M.D.January 23, 2013 at 12:21:32 PM [id number] Signed GP/GP If you are the referring physician and would like to consult with theradiologist who provided this interpretation, please contact Letty Mukherjee at [phone]. If this radiologist is unavailable, youwill be directed to another radiologist to as sist. If you are a patient with a question regarding this report, pleasecontactyour referring physician directly. Professional Interpretation Provided By: [employer], Phone ,Fax These documents contain legally protected [...] on 01/24/131712 Sign by: Kvng Cutler MD 83-Ibl-68520:57 ABDOMEN/PELVIS WITH CONTRAST Radiology Report See Note [...] narrowing at the L4, L5, and L5, W0ulbmyh. IMPRESSION:Sigmoid diverticulosis. Signed:Kvng Cutler M.D.September 01, 2012 at 1:13:05 PM [id number] Signed GP/GP If you are the referring physician and would like to consult with theradiologist who provided this interpretation, please contact Letty Mukherjee at . If this radiologist is unavailable, youwill be directed to another radiologist to assist. If you are a patient with a question regarding this report, pleasecontactyour referring physician directly . Professional Interpretation Provided By: [employer], Phone , These documents contain legally protected [...] destructionofthese documents. Dictated on 09/01/12 0811 by Moreno Cutler MD o n 09/01/12 1322 by ITS IMPORTSign by Kvng Cutler MD on 09/01/12 1323 Sign by: Kvng Cutler MD 42-Zlf-435100:53 CRE GFRAA 109 mL/min (Normal) GFR 90 mL/min (Normal) CREAT 0.7 mg/dL (Normal) Range: 0.6-1.0 65-Tqx-638512:41 KNEE,4 OR MORE VIEWS Radiology Report See [...] regarding t his report, please call our [id number] line @ Dictated on 01/31/12 1436 by Alec MCKAY,RanulforiJemimaranscribed on 02/01/12 1327 by ITS IMPORTSign by Alec MCKAY,Kvng on 02/01/12 13 28 Sign by: Alec MCKAY,Kvng 9-Ogm-905084:36 CULTURE, URINE URINE CULTURE See Note {CFU/mL} (Normal) Comments: COLONY COUNT 25,000-50,000 ORGANISM 1: MIXED GRAM POSITIVE ORGANISMS 26-Apr-20119:17 Urinalysis, Office (44322) UA - BILIRUBIN Negative (Normal) UA - [...] :34 TSH 3.22 {uIU/mL} (Normal) Range: 0.358-3.74 97-Gcm-017997:23 URINE KVNG CULTURE-IDENTIFICATN Comments: PATIENT NOT FASTINGPERFORMED BY: [facility] Imbzkq1363 Cornell Morrell MD [id number] Information: [id number] (28264) Antimicrobial MIHEAD (Normal) Comments: S = Susceptible; [...] primarily for treating urinary tract infections. (CLSI, B217-R05,2009) Result 1 Klebsiella pneumoniae Comments: 3,000 Colonies/mL . (Normal) Urine Final report (Normal) Culture,Comprehensive 42-Ive-56521:52 Urinalysis, Office (74677) UA - BILIRUBIN Negative (Normal) UA - BLOOD Negative (Normal) UA - GLUCOSE Negative (Normal) UA - KETONES Negative mg/dL (Normal) UA - LEUKOCYTE ESTERASE Small (Normal) UA - NITRITE Negative (Normal) UA - PH 5.0 (Normal) UA - PROTEIN Negative mg/dL (Normal) UA - SPECIFIC GRAVITY 1.015 (Normal) URINE UROBILINGN HE TIMED Normal mg/dL (Normal) 3-Lyj-389339:44 TRANSVAGINAL NON- Radiology Report See Note (Normal) Comments: Exam Number: [id number] LINICAL:This is a 60-year-old female patient with [...] were not visualized. Reported By: KVNG CUTLER 1-Ssf-974386:24 PELVIC (NON ) Radiology Report See Note (Normal) Comments: Exam Number: [id number] LINICAL:This is a 60-year-old female patient with [...] were not visualized. Reported By: KVNG CUTLER 23-Uhi-792381:53 URINE KVNG CULTURE-HE COL Comments: PATIENT NOT FASTINGPERFORMED BY: [facility]6370 [facility] [id number] Information: SRC:URT [id number] COUNT (40713) Result 3 BETAGB (Normal) Comments: Beta hemolytic [...] primarily for treating urinary tract infections. (CLSI, H722-B73,2009) Result 2 Klebsiella pneumoniae Comments: 100 Colonies/mL . (Normal) Urine Final report (Normal) Culture,[facility] chucho 59-Xpf-52761:50 Urinalysis, Office (68529) UA - LEUKOCYTE ESTERASE Trace (Normal) UA - NITRITE Negative (Normal) URINE UROBILINGN HE TIMED Normal mg/dL (Normal) UA - PROTEIN Negative mg/dL (Normal) UA - PH 5.0 (Normal) UA - BLOOD Non Hemolyzed Trace (Normal) UA - SPECIFIC GRAVITY 1.010 (Normal) UA - KETONES Negative mg/dL (Normal) UA - BILIRUBIN Negative (Normal) UA - GLUCOSE Negative (Normal) 8-Nnw-710386:00 Urinalysis, Office (79691) UA - LEUKOCYTE ESTERASE Trace (Normal) UA [...] Comments: GLU,2HPPG 75gm GLUC PPG GLUP from 0902:I80968J. :34 CBC, EMPLOYEE [facility] 34.4 g/dL (Normal) [...] CHOL 283 mg/dL (Abnormal) Comments: <200 mg/dL Lxthajpwe676-613 mg/dL Borderline>240 mg/dL High Risk HDL 53 [...] Report See Note (Normal) Comments: Exam Number: [id number] CLINICAL:This is a 60-year-old female patient with [...] of the thyroid. Reported By: KVNG CUTLER 43-Hty-86458:10 COLON BX P-COLBX (Normal) Comments: OPERATIONColonoscopy with biopsyPRE-OPERATIVE DIAGNOSISDiarrheaPOST- OPERATIVE DIAGNOSISRule out microscopic colitisTISSUE SUBMITTEDA - Right colon biopsy, B - Left colon biopsyMICROSCOPIC DIAGNOSISA. R ight colon, biopsy:Fragments of colonic mucosa, no pathologic diagnosis.B. Left colon, biopsy:Fragments of colonic mucosa, no pathologic diagnosis.LONG:chris 03/20/10GROSS DESCRIPTIONA - Received in formali n [...] is totally submitted in one cassette. / LONG:chris 03/19/10TC:4REPORT SIGNED: SHREE WEINSTEIN 03/20/1010-Feb-201047-Jry-963508:08 KNEE,4 OR MORE VIEWS (MT) Radiology Report See Note (Normal) Comments: Exam Number: [id number] CLINICAL:Pain X-RAY EXAMINATION LEFT KNEE TECHNIQUE:Four views of the knee. COMPARISON:None. FINDINGS:Normal visualized distal femur. Normal visualized proximal tibia. Normal visu alized proximal fibula. There is minimal narrowing of the medial femorotibial compartment.Normal lateral femorotibial compartment. Normal patellofemoral articulation. There is no demonstrated jointeffu tamia. There is no demonstrated soft tissue swelling. IMPRESSION:Chronic degenerative changes, as discussed above. Reported By: SURINDER WOODRUFF 40-Nuy-763822:00 SPINE, LUMBAR W/W/O CONTRAST Radiology Report See Note (Normal) Comments: Exam Number: [id number] CLINICAL:59-year-old female with displaced lumbar disk low [...] described above. Reported By: LANDY HIGHTOWER M.D. 28-Aug-20097:03 TRAN-D [id number] TRAN-DIRECT SeeNote (Normal) Comments: Result: Negative [facility]formed At: [facility] Romnuvzbea[address] [place], [place] [id number] At: [facility] Lmbalq05[address] [place], [place] [id number] :03 ANTI-CCP 408629 6 {units} (Normal) Range: 0-19 Comments: Negative [...] mg/L (Normal) UR CREAT 32.5 mg/dL (Normal) :03 RHEUMATOID FAC 11.2 {IU/mL} (Normal) :03 ROUTINE [...] 2.6-6.0 VLDL 30 mg/dL (Normal) Range: 5-40 :41 EMP URINALYSIS BILIRUBIN URINE SeeNote (Normal) Comments: [...] Report See Note (Normal) Comments: Exam Number: [id number] BILATERAL SCREENING MAMMOGRAM COMPARISONComparison is made to [...] The mammogramswere also examined with computer-aided detection software([employer] Reported By: CHUCK PEREZ M.D. 64-Njo-561086:46 SHOULDER,MIN 2 VIEWS Radiology Report See Note (Normal) Comments: Exam Number: [id number] RIGHT SHOULDER HISTORYShoulder pain. TECHNIQUEFour views of [...] normal variant. Reported By: LUIS JORGE M.D. 94-Vjh-649942:00 LQD PAP [id number] Comments: CYTOLOGY INFORMATION:- CLINICAL INFORMATION: POSTMENOPAUSAL- DATE LMP/MENOPAUSE: - COLLECTION VIAL: Thin Prep Vial- MANAGER PARTY SOURCE: CERVICAL/ENDOCERVICAL- COLLECTION TECHNIQUE: BRUSH/SPATULA ADEQ Comment (Normal) Comments: Satisfactory for evaluation. Endocervical and/or squamous metaplasticcells (endocervical component) are present. COMM . (Normal) DIAGN Comment (Normal) Comments: NEGATIVE FOR INTRAEPITHELIAL LESION AND MALIGNANCY. HPV RFLX Comment (Normal) Comments: The HPV DNA reflex criteria were not met with this specimenresult therefore, no HPV testing was performed. .Performed At: [facility] V[address] [place], [place] [id number] PAPSMR Comment (Normal) Comments: The Pap smear is a screening test designed to aid in thedetection of pre-malignant and malignant conditions of theuterine cervix. It is not a diagnostic procedure andshould not be used as the sole mean s of detecting cervicalcancer. Both false-positive and false-negative reports dooccur. . 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 Plan of Care Name Dates Details Instructions Hypertensive heart disease without congestive heart failure : Follow up in 2 weeks Indication: Hypertensive heart disease without congestive heart failure Dilated cbd, acquired : Reviewed Diagnostic Tests Indication: Dilated cbd, acquired Hypertensive heart disease without congestive heart failure : HTN/CAD Red Flags Indication: Hypertensive heart disease without congestive heart failure Headache : Reviewed Lab Indication: Headache Headache : Reviewed Diagnostic Tests Indication: Headache Headache : Reviewed Sales Development Coordinator Letter Indication: Headache Hypertensive heart disease without congestive heart failure [...] Indication: Epigastric pain Epigastric pain : Reviewed Sales Development Coordinator Letter Indication: Epigastric pain Epigastric pain : [...] Indication: GERD (gastroesophageal reflux disease) Planned Observations ALDOSTERONE (89032)Indication: Hypertensive heart disease without congestive heart failure On: :28 Request RENIN (88172)Indication: Hypertensive heart disease without congestive heart failure On: :28 Request METANEPHRINES - URINE (69890)Indication: Hypertensive heart disease without congestive heart failure On: : Request CATECHOLAMINES TOTAL, URINE (09889)Indication: Hypertensive heart disease without congestive heart failure On: : Request URINE VMA (89055)Indication: Hypertensive heart disease without congestive heart failure On: : Request Metabolic Panel, Basic (45459)Indication: Therapeutic drug monitoring On: 50-Bfd-38873:13 Request Comments: give to jud to review HEPATIC FUNCTION PANEL (31728)Indication: Common bile duct dilation On: 85-Zki-942266:18 Request HEPATIC FUNCTION PANEL (94392)Indication: Epigastric pain On: 71-Wvr-237556:51 Request LIPID PANEL (93774)Indication: Hypercholesteremia On: :25 Request TSH (94029)Indication: Abnormal TSH On: :21 Request T4, FREE (THYROXINE) (72853)Indication: Abnormal TSH On: :21 Request T3, FREE (TRIDOTHYRONINE) (39558)Indication: Abnormal TSH On: :21 Request TSH (09774)Indication: Hypercholesteremia On: :14 Request URINALYSIS, W/ MICRO (94897)Indication: Hypertensive heart disease without congestive heart failure On: :14 Request MICROALBUMIN: CREATININE RATIO (51908) AND (45560)Indication: Hypertensive heart disease without congestive heart failure On: :14 Request METABOLIC PANEL, COMPREHENSIVE (39730)Indication: Hypertensive heart disease without congestive heart failure On: :14 Request LIPID PANEL (20714)Indication: Hypercholesteremia On: :14 Request CBC W/AUTO DIFF WBC (19470)Indication: Hypertensive heart disease without congestive heart failure On: 01-Vbr-706419:14 Request Cryptosporidium Sp Ag, Direct Fluorescent Ab (31793)Indication: Diarrhea On: :44 Request GIARDIA LAMBLIA ANTIBODY (62475)Indication: Diarrhea On: :43 Request C-DIFFICILE, STOOL (23558)Indication: Diarrhea On: :43 Request OVA & PARASITE DIR SMEAR (53101)Indication: Diarrhea On: :43 Request OCCULT BLOOD FECES SCREEN (14512)Indication: Diarrhea On: :43 Request LEUKOCYTE COUNT, FECAL (72905)Indication: Diarrhea On: :43 Request KVNG CULTURE-STOOL (47010)Indication: Diarrhea On: :43 Request FECAL OCCULT HGB ASSAY- tubes sent home (31087)Indication: Encounter for Medicare annual wellness exam On: 46-Lfx-22958:28 Request TSH (81334)Indication: Hypertensive heart disease without congestive heart failure On: 14-Ido-404060:27 Request URINALYSIS, W/ MICRO (07886)Indication: Hypertensive heart disease without congestive heart failure On: 71-Saq-075923:27 Request MICROALBUMIN: CREATININE RATIO (22866) AND (98219)Indication: Hypertensive heart disease without congestive heart failure On: 07-Kux-337501:27 Request METABOLIC PANEL, COMPREHENSIVE (16927)Indication: Hypertensive heart disease without congestive heart failure On: 81-Igd-422496:27 Request CBC WITH MANUAL DIFF (42314)Indication: Hypertensive heart disease without congestive heart failure On: 92-Chb-537028:27 Request LIPID PANEL (55411)Indication: Hypercholesteremia On: 05-Feb-2014 Request URINE KVNG CULTURE-HE COL COUNT (34337)Indication: Urinary frequency On: :17 Request Magnesium (36986)Indication: Hypopotassemia On: 87-Ejw-637887:50 Request Metabolic Panel, Basic (95658)Indication: Hypopotassemia On: 36-Mep-804189:49 Request TSH (81478)Indication: Hypercholesteremia On: 06-Zni-60882:09 Request URINALYSIS, W/ MICRO (72806)Indication: Hypertensive heart disease without congestive heart failure On: :09 Request MICROALBUMIN: CREATININE RATIO (29669) AND (04029)Indication: Hypertensive heart disease without congestive heart failure On: :09 Request METABOLIC PANEL, COMPREHENSIVE (48585)Indication: Hypertensive heart disease without congestive heart failure On: :09 Request LIPID PANEL (76163)Indication: Hypercholesteremia On: :09 Request CBC WITH MANUAL DIFF (26660)Indication: Hypertensive heart disease without congestive heart failure On: :09 Request URINE KVNG CULTURE-HE COL COUNT (37587)Indication: Dysuria On: 2-Aqz-611719:00 Request Glucose, PP/2 Hour (79539)Indication: Other specified abnormal findings of blood chemistry On: :21 Request HEPATIC FUNCTION PANEL (61878)Indication: Hypercholesteremia On: :57 Request LIPID PANEL (16940)Indication: Hypercholesteremia On: :57 Request Comments: DO IN 3 MONTHS Glucose, PP/2 Hour (42308)Indication: Other specified abnormal findings of blood chemistry On: :57 Request TRAN (ANTINUCLEAR ANTIBODY) (68912)Indication: Pain in unspecified joint On: :29 Request C-REACTIVE PROTEIN (32102)Indication: Pain in unspecified joint On: :29 Request CBC WITH MANUAL DIFF (60280)Indication: Pain in unspecified joint On: :29 Request CCP ANTIBODY (77204)Indication: Pain in unspecified joint On: :29 Request METABOLIC PANEL, COMPREHENSIVE (55050)Indication: Pain in unspecified joint On: :29 Request RHEUMATOID FACTOR-QUANT (53160)Indication: Pain in unspecified joint On: :29 Request SED RATE ERYTHROCYTE (33049)Indication: Pain in unspecified joint On: :29 Request TSH (97983)Indication: Pain in unspecified joint On: :29 Request FECAL OCCULT- Tubes sent home (72452)Indication: Benign essential hypertension On: :27 Request TSH (06755)Indication: Benign essential hypertension On: :09 Request URINALYSIS W/O MICRO (86255)Indication: Benign essential hypertension On: :09 Request MICROALBUMIN: CREATININE RATIO (75858) AND (00160)Indication: Benign essential hypertension On: :09 Request METABOLIC PANEL, COMPREHENSIVE (05188)Indication: Benign essential hypertension On: :09 Request LIPID PANEL (56143)Indication: Benign essential hypertension On: :09 Request CBC WITH MANUAL DIFF (59934)Indication: Benign essential hypertension On: : Request HEPATIC FUNCTION PANEL (03309)Indication: Hypercholesteremia On: :56 Request Comments: DO IN 3 MONTHS LIPID PANEL (39455)Indication: Hypercholesteremia On: :56 Request URINALYSIS W/O MICRO (96636)Indication: Hypertension On: :51 Request TSH (18702)Indication: Hypertension On: :51 Request MICROALBUMIN URINE QUANT (23059)Indication: Hypertension On: :51 Request METABOLIC PANEL, COMPREHENSIVE (51937)Indication: Hypertension On: :50 Request LIPID PANEL (57114)Indication: Hypertension On: :50 Request CBC WITH MANUAL DIFF (24296)Indication: Hypertension On: :50 Request Planned Encounters Medical; 3 Week FU - On: 25-Sep-2018 13:45 [facility] Jessica Corona DO, DO, Kathleen Medical; 2 Week FU - On: 27-Sep-2018 10:15 [facility] Jessica Corona DO, DO, Kathleen Planned Procedures Renal Duplex ScanBy: Chloe SCHROEDER, On: 13-Sep-2018 Intent Jessica Proctor DO Ultrasound - RenalBy: Chloe SCHROEDER, On: 13-Sep-2018 Intent Jessica Proctor DO X-RAY OF ABDOMEN, FLAT PLATE AND On: 21-Jun-2018 Intent ERECT (40568)By: Jud Samaniego CNP X-RAY OF CERVICAL SPINE, TWO VIEWS On: 02-Jun-2018 Intent (50433)By: Jessica Corona DO, DO, Kathleen Radiology - Lumbar SpineBy: Mohamud On: 25-May-2018 Intent Addie ELECTROCARDIOGRAM, COMPLETE (ECG) On: 04-May-2018 Intent (52220)By: Jessica Corona DO Comments: nsr / no acute chg - pvc present and IVCD DO Jessica IXON-TY-TQUG BEHAVIORAL COUNSELING On: 28-Apr-2018 Intent FOR OBESITY, 15 MINUTES (G0447)By: Jessica Corona DO, DO, Kathleen DEXA SCAN AXIAL SKELETON (53194)By: On: 28-Apr-2018 Intent Jessica Corona DO, DO, Kathleen MRCP (MAGNETIC RESONANCE On: 06-Feb-2018 Intent CHOLANGIOPANCREATOGRAPHY) (S8037)By: Jessica Corona DO, DO, Kathleen ULTRASOUND OF UPPER ABDOMEN On: 27-Jan-2018 Intent (64602)By: Jessica Corona DO Comments: attention size of CBD DO, Jessica SCREENING DIGITAL TOMOSYNTHESIS OF On: 09-Jan-2018 Intent BREAST (51071)By: Addie Odell LPN ELECTROCARDIOGRAM, COMPLETE (ECG) On: 03-Aug-2017 Intent (86567)By: Jessica Corona DO Comments: sinus vinicio no new acute chg DOJessica MAMMOGRAM BREAST BILATERAL SCREENING On: 03-Jul-2015 Intent DIGITAL (15651)By: Jessica Corona DO, DO, Kathleen Radiology - ChestBy: Jud Samaniego CNP On: 26-May-2015 Intent E Aerosol Treatment (90395)By: Danette On: 26-May-2015 Intent Jud SPRINGER Aerosol Treatment (48511)By: Froylan On: 05-May-2015 Intent Sandy KENT Radiology - Lumbar SpineBy: Danette On: 15-Apr-2015 Intent Jud SPRINGER Toradol Injection, 30 mg (J1885)By: On: 11-Apr-2015 Intent Jud Samaniego CNP ADMINISTRATION OF PNEUMOCOCCAL On: 10-Jun-2014 Intent VACCINE (G0009)By: Jessica Corona DO, DO, Kathleen PNEUM VAC ADLT/IMUMNOSPR, SBC/INTRM On: 10-Jun-2014 Intent (10502)By: Jessica Corona DO Comments: lot: [id number]: 03/22/15site/route: L del/IMamt: 0.5mLVIS signed when applicableChelsJULIEN baird DO, Kathleen FREJ-ZF-PTRG BEHAVIORAL COUNSELING On: 10-Jun-2014 Intent FOR OBESITY, 15 MINUTES (G0447)By: Jessica Corona DO, DO, Kathleen BILATERAL MAMMOGRAMS (56378)By: On: 04-Jun-2014 Intent Jessica Corona DO, DO, Kathleen EKG (01287)By: Jessica Corona DO On: 04-Feb-2014 Intent Jessica Corona DO Comments: nsr no acute cg Eprescribed prescriptions (G8553)By: On: 16-Nov-2013 Intent Jessica Corona DO, DO, Kathleen gastric emptying studyBy: Chloe SCHROEDER, On: 10-Oct-2013 Intent Jessica Proctor DO FLU VAC, SPLIT, >3 YEARS, INTRAMUSC On: 06-Sep-2013 Intent (73750)By: Addie Odell LPN Comments: Lot:kc61yYjc:6.14Amt:0.5mlRoute:IMSite: L DltdGiven By: LAUREN Fontenot signed ADMINISTRATION OF INFLUENZA VIRUS On: 06-Sep-2013 Intent VACCINE (G0008)By: Addie Odell LPN EKG (68443)By: Jessica Corona DO On: 26-Mar-2013 Intent Jessica Corona DO Comments: nsr no acute ischemic changes/ borderline LVH Eprescribed prescriptions (G8553)By: On: 26-Mar-2013 Intent ManShaye brittonsea Eprescribed prescriptions ([id number])By: On: 23-Feb-2013 Intent ManShaye brittonsea MAMMOGRAM, SCREENING, BOTH BREASTS On: 19-Jan-2013 Intent ([id number])By: Jessica Corona DO, DO, Kathleen CT - Abdomen & Pelvis (IV Contrast On: 28-Aug-2012 Intent Needed)By: Jessica Corona DO, DO, Kathleen Eprescribed prescriptions ([id number])By: On: 28-Aug-2012 Intent Addie Odell DONTE DRAIN/INJECT, JOINT/BURSA ([id number])By: On: 25-Feb-2012 Intent Jessica Corona DO, DO, Comments: inject 2 cc marcaine 1 cc kenolog [facility] - Knee - RightBy: Chloe On: 31-Jan-2012 Jessica Mauricio DO, DO, Kathleen Eprescribed prescriptions ([id number])By: On: 25-Oct-2011 Intent Jessica Corona DO, DO, Kathleen TDAP VACCINE >7 IM ([id number])By: Chloe On: 02-Jul-2011 Jessica Mauricio DO, DO, Kathleen Comments: 0.5cc given im rt dltd lot [id number] exp 08-11-13 EKG ([id number])By: Jessica Corona DO On: 01-Feb-2011 Jessica Lemus DO Comments: nsr no acute changes-- borderline LVH -- but seen on echo best Bio [facility] ([id number])By: Jessica Corona DO On: 01-Feb-2011 Intent Jessica [...] On: 18-Aug-2009 Intent Jessica Proctor DO EKG ([id number])By: Jessica Corona DO On: 18-Aug-2009 Intent Jessica Corona DO Comments: nsr no acute changes Pulse Oximetry ([id number])By: Chloe SCHROEDER On: 05-Mar-2009 Intent Jessica Proctor DO Comments: 93% RA Aerosol Treatment ([id number])By: Chloe On: 05-Mar-2009 Jessica Mauricio DO, DO, Kathleen Comments: better air exchange no wheeze Solu- Medrol Injection, 125mg On: 05-Mar-2009 Intent ([id number])By: Jessica Corona DO Comments: injection given in left glutues alvarado. Pt tolerated well. AGRT011/2011 Jessica SCHROEDER EKG ([id number])By: Jessica Corona DO On: 25-Feb-2008 Intent Jessica Corona DO Comments: nsr no acute ischemic changes Kenalog Injection, 10 mgm ([id number])By: On: 14-Apr-2007 Intent Omayra Foley MD Kenalog Injection, 10 mgm ([id number])By: On: 14-Apr-2007 Intent Omayra Foley MD Kenalog Injection, 10 mgm ([id number])By: On: 14-Apr-2007 Intent Omarya Foley MD Kenalog Injection, 10 mgm ([id number])By: [...] failure Hypercholesteremia : DISCONTINUED - LIPID PANEL ([id number]) Indication: Hypercholesteremia Hypercholesteremia : DISCONTINUED - TSH ([id number]) Indication: Hypercholesteremia Hypertensive heart disease without congestive heart failure : DISCONTINUED - URINALYSIS, W/ MICRO ([id number]) Indication: Hypertensive heart disease without congestive heart failure Hypertensive heart disease without congestive heart failure : DISCONTINUED - MICROALBUMIN: CREATININE RATIO (94779) AND (43842) Indication: Hypertensive heart disease without congestive heart failure Hypertensive heart disease without congestive heart failure : DISCONTINUED - METABOLIC PANEL, COMPREHENSIVE ([id number]) Indication: Hypertensive heart disease without congestive heart failure Hypertensive heart disease without congestive heart failure : DISCONTINUED - CBC WITH MANUAL DIFF (21242) Indication: Hypertensive heart disease without congestive heart failure Irritable Bowel Syndrome : Patient Instructions Indication: Irritable Bowel Syndrome Abdominal pain, acute, left lower quadrant : Patient Instructions Indication: Abdominal pain, acute, left lower quadrant Abdominal pain, acute, left lower quadrant : Patient Instructions Indication: Abdominal pain, acute, left lower quadrant Encounters Office Visit On: 13-Sep-2018 10:38 Encounter Reason: Follow up ER - Reason for hospitalization note: (high bp). Patient has been compliant with instructions. Current medication use: no side effects and compliant with dosing regimen. The patient feels well with minor complaints. End: 13-Sep-2018 11:32 Encounter Diagnosis: BMI 33.0-33.9,adult, Non-smoker, Hypertensive heart disease without congestive heart failure, Hyperkalemia, Headache, Bacterial sinusitis, Dilated cbd, acquired [facility] Office Visit On: 08-Sep-2018 8:19 Encounter Reason: [...] are helping. Going on a trip next week-[facility] bus trip.Encounter Diagnosis: Non-smoker, BMI 35.0-35.9,adult, Sciatica [...] patient does not have durable power of title attorney or living will. The patient has noticed [...] inc lude All identified problems below, gastric reflux, high [...] patient does not have durable power of title attorney or living will. The patient has noticed [...] Encounter Reason: Follow up tests - Date: (3/12/12 x-ray).Encounter Diagnosis: Osteoarthritis, Unspecified Whether Generalized or [...] with instructions. Current medication use: no s riay effects and compliant with dosing regimen. Patient [...] acute care visit: Pt called [facility] over Day Weekend because she was having sx [...] [facility] End: 06-Sep-2006 14:06 [facility] Francy Tobar; shubham guarantor
--- OUTSIDE RECORDS SUMMARY | 2018-12-17 17:00 | XMS RPT_ITS | Continuity of Care Document ---
:1950 Author Organization [facility] Address [address] [place] [address] Phone Care Team Providers Name Role Phone Jessica Corona DO Unavailable Huber MCKAY, Dr. Benitez Unavailable [facility], [facility] Unavailable DONTE Odell Unavailable Unavailable Emily Polk [...] Start : 25-May-2018 End : 28-May-2018 Inactive Comments:JPBIIEgvcfszd-310Mowdismy-501Nkpvehsxi-000OD Pdvd-471IH-Qnwjnnzt of Right Side (M54.31)#Three CELEBREX, 200MG (Oral [...] days Quantity: 30 {Tablet_ER} Refills: 1 Ordered:02-Jul-2011 dAdie Odell LPN Start : 19-Feb-2011 End : [...] Quantity: 30 {Tablet} Refills: 3 Ordered:11-Apr-2015 Slarb MANAGER BEVERAGESandy Bach Start : 10-Oct-2013 End : 11-Apr-2015 [...] Lead Electrocardiogram Result: Comments: See Note; NOTES: [facility] Cardiovascular Services [address] [place] [address] 12 Lead EKG 09/09/18 0949 MR#: [id number] Acct: [id number] Name: NEISHA TOBAR ep #: [id number] : 1950 68 From: Ian Gudino MD [...] Abnormal ECG Confirmed by TERESE MCKAY, IAN ([id number]), communications editor CHARITY VILLEGAS ([id number]) on 09/12/2018 11:06:08 AM Referred By: Devora Corona Confirmed By:IAN GUDINO MD 09/12/18 1106 Date Ian Gudino MD CC: Anel Hunter MD; Jessica Corona DO Signed 09-Sep-2018 Emergency Department Summary Result: Comments: See Note; NOTES: [facility] Medical Records Department [address] [place] [address] Emergency Department Summary 09/09/18 0934 MR#: [id number] Acct: [id number] Name: NEISHA TOBAR Rep #: [id number] : 1950 68 From: Anel Hunter MD [...] Hypertension, improved This note was generated with Flux dictation software. It may contain incorrect words, [...] your Primary Care Provider. Call [facility] ([phone]) or report to the [facility] Emergency Room. Call 911 if necessary. 09/09/18 1633 <Electronically signed by Anel Hunter MD> Date Anel Hunter MD Cos igner Signature (If Indicated): Date CC: Jessica Corona DO 09-Sep-2018 Discharge Instruction Result: Comments: See Note; NOTES: [facility] Medical Records Department [address] [place] [address] Discharge Instruction 09/09/18 1203 MR#: [id number] Acct: [id number] Name: ELIZABETLydia SHANNAN Shubham Rep #: [id number] : 1950 68 From: Anel Hunter MD [...] your Primary Care Provider. Call [facility] ([phone]) or report to the closest Emergency Room. Call 911 if necessary. 09/09/18 1207 < Electronically signed by Anel Hunter MD> Date [facility] Signature (If Indicated): Date CC: Jessica Corona DO 09-Sep-2018 Brain/Head without Contrast Result: Comments: See Note; NOTES: [facility] Imaging Services [address] [place] [address] Brain/Head without Contrast MR#: [id number] Acct: [id number] Name: NEISHA TOBAR Rep #: [id number] : 1950 F 68 From: Italo Brown DO PCP: Jessica Corona DO Status: REG ER Study: Brain/Head without Contrast Date of Exam: 09/09/18 Exam# [id number] [facility]ing Dr: [facility] BRAIN WITHOUT CONTRAST REASON FOR EXAM: [...] CC: Anel Hunter MD; Jessica Corona DO Braider Operator: Signed 21-Jun-2018 Abd Inc Decub and/or Erect Result: Comments: See Note; NOTES: [facility] Imaging Services [address] [place] [address] Abd Inc Decub and/or Erect MR#: [id number] Acct: [id number] Name: NEISHA TOBAR Rep #: [id number] : 1950 F 68 From: Tapan Gore MD PCP: Jessica Corona DO Status: REG CLI Study: Abd Inc Decub and/or Erect Date of Exam: 06/21/18 Exam# [id number] Ordering Dr: Jud Samaniego Y: X-RAY - [...] , Service support , CC: Jud Samaniego FOOD CLERK; Jessica Corona DO Braider Operator: Signed 02-Jun-2018 Cerv Spine 2 or 3 Views Result: Comments: See Note; NOTES: [facility] Imaging Services [address] [place] [address] Cerv Spine 2 or 3 Views MR#: [id number] Acct: [id number] Name: NEISHA TOBAR Rep #: [id number] : 1950 F 68 From: Jamil Paulson MD PCP: Jessica Corona DO Status: REG CLI Study: Cerv Spine 2 or 3 Views Date of Exam: 06/02/18 Exam# [id number] Ordering Dr: Jessica Corona DO UDY: X-RAY [...] Service support , CC: Jessica Corona DO Braider Operator: Signed 25-May-2018 L/S Spine Min 4 Views Result: Comments: See Note; NOTES: [facility] Imaging Services [address] [place] [address] L/S Spine Min 4 Views MR#: [id number] Acct: [id number] Name: NEISHA TOBAR Rep #: [id number] : 1950 F 68 From: Mikayla Guerrier MD PCP: Jessica Corona DO Status: REG CLI Study: L/S Spine Min 4 Views Date of Exam: 05/25/18 Exam# [id number] Ordering Dr: Addie Mallory FOOD CLERK-C STUDY: X -RAY - LUMBAR SPINE REASON [...] , CC: DEYSI Mallory; Jessica Corona DO Braider Operator: Signed 09-May-2018 Dexa Bone Density Study Result: Comments: See Note; NOTES: [facility] Imaging Services [address] [place] [address] Dexa Bone Density Study MR#: [id number] Acct: [id number] Name: NEISHA TOBAR Rep #: [id number] : 1950 F 68 From: Kvng Cutler MD PCP: Jessica Corona DO Status: REG CLI Study: Dexa Bone Density Study Date of Exam: 05/09/18 Exam# [id number] Ordering Dr: Jessica Corona DO STUDY: DUAL [...] Kvng Cutler MD at 8:25 EDT Tel [phone], Service support , CC: Jessica Corona DO Braider Operator: Signed 14-Feb-2018 MRCP Abdomen without Contrast Result: Comments: See Note; NOTES: [facility] Imaging Services [address] [place] [address] MRCP Abdomen without Contrast MR#: [id number] Acct: [id number] Name: NEISHA TOBAR Rep #: [id number] : 1950 F 68 From: Vj Rajput MD PCP: Jessica Corona DO Status: REG CLI Study: MRCP Abdomen without Contrast Date of Exam: 02/14/18 Exam# [id number] Ordering Dr: Rigo Corona DO STUDY: MR [...] Service support , CC: Jessica Corona DO Braider Operator: Signed 03-Feb-2018 Abdomen Limited Result: Comments: See Note; NOTES: [facility] Imaging Services [address] [place] [address] Abdomen Limited MR#: [id number] Acct: [id number] Name: NEISHA TOBAR Rep #: [id number] D OB: 1950 F 68 From: Kvng Cutler MD PCP: Jessica Corona DO Status: REG CLI Study: Abdomen Limited Date of Exam: 02/03/18 Exam# [id number] Ordering Dr: Jessica Corona DO STUDY: ABDOMINAL [...] Kvng Cutler MD at 13:52 EDT Tel [phone], Service support , CC: Jessica Corona DO Braider Operator: Signed 31-Jan-2018 SCREENING MAMM (CAD), BILAT Result: Comments: See Note; NOTES: [facility] Imaging Services [address] [place] [address] SCREENING MAMM (CAD), BILAT MR#: [id number] Acct: [id number] Name: NEISHA TOBAR Rep #: [id number] : 1950 F 67 From: Kvng Cutler MD PCP: Jessica Corona DO Status: REG CLI Study: SCREENING MAMM (CAD), BIL Date of Exam: 01/31/18 Exam# [id number] Ordering Dr: Lidia Corona DO MAMMOGRAPHY - [...] delay biopsy of a clinically suspicious abnormality. [id number] Electronically Signed: Kvng Cutler MD at 14:26 EDT Tel [phone], Service supp ort , CC: Jessica Corona DO Braider Operator: Signed 28-Aug-2015 Bilat Scrn Digital AND CAD Result: Comments: See Note; NOTES: [facility] Imaging Services [address] [place] [address] Breast Imaging Report MR#: [id number] Acct: [id number] Name: NEISHA TOBAR Rep # : [id number] : 1950 F 65 From: Kvng Cutler MD PCP: Jessica Corona DO Status: REG CLI Study: Leighann España Digital AND CAD Date of Exam: 08/28/15 Exam# [id number] Ordering Dr: Raymond Corona DO MAMMOGRAPHY - [...] be sent to the patient by the [facility] within 30 days. Approximately 10% of breast cancers are not detected by mammography. A normal mammogram should not delay biopsy of a clinically suspicious abnormality. Electronically Mirian d: Kvng Cutler MD at 8:05 EDT Tel [phone], Service support [phone], CC: Jessica Corona DO Braider Operator: Signed 03-Jun-2015 PT Discharge Summary Result: Comments: See Note; NOTES: [facility] Physical Therapy [facility] [address] [place], [place] [address] Fax REHABILITATION SERVICES DISCHARGE SUMMARY MR#: [id number] Acct: [id number] Name: NEISHA TOBAR Rep #: [id number] : 1950 65 From: Sandy Nelson Referring [...] clinic. Sandy Nelson, PT T: NTS JOB: [id number] <Electronically signed by Sandy Nelson > 06/03/15 1726 CC: Signed 26-May-2015 Chest PA and Lateral Result: Comments: See Note; NOTES: [facility] Imaging Services [address] [place] [address] Radiology Report MR#: [id number] Acct: [id number] Name: NEISHA TOBAR Rep #: [id number] : 1950 F 65 From: Zoila Allen MD PCP: Jessica Corona DO Status: REG CLI Study: Chest PA and Lateral Date of Exam: 05/26/15 Exam# [id number] Ordering Dr: Jud Samaniego STUDY: X-RAY C [...] MD at 12:07 EDT , Service support [phone], RAD /Chest PA and Lateral IMPRESSION: There is a left midlung field calcified granuloma. There is bilateral lower lobe scarring/atelectasis. No radiographic evidence of bronchitis. Electronically Sig kyle: Zoila Allen MD at 12:07 EDT , Service support [phone], CC: Jud Corona DO Braider Operator: Signed 13-May-2015 Inital Evaluation - PT Result: Comments: See Note; NOTES: [facility] Physical [facility] [place] [address] Fax REHABILITATION SERVICES INITIAL EVALUATION MR#: [id number] Acct: [id number] Name: NEISHA TOBAR Rep #: [id number] : 1950 65 From: Sandy Nelson Referring [...] needed. Sandy Nelson, PT T: NTS JOB: [id number] <Electronically signed by Sandy Nelson > 05/13/15 0818 CC: Signed For Medicare only, by signing this I certify the plan of care. Physicians Signature Date 16-Apr-2015 L/S Spine Min 4 Views Result: Comments: See Note; NOTES: [facility] Imaging Services [address] [place] [address] Radiology Report MR#: [id number] Acct: [id number] Name: NEISHA TOBAR Rep #: [id number] : 1950 F 65 From: Rod Pollard DO PCP: Jessica Corona DO Status: REG CLI Study: L/S Spine Min 4 Views Date of Exam: 04/16/15 Exam# [id number] Ordering Dr: Jud Samaniego STUDY: X-RA Y [...] Signed: Rod Pollard at 16:48 EDT Tel [phone], Service support [phone], RAD/L/S Spine Min 4 Views IMPRESSION: Degenerative ch anges of the spine, as detailed above. Electronically Signed: Rod Pollard at 16:48 EDT Tel [phone], Service support [phone], CC: Jud Samaniego; Rigo Corona DO Braider Operator: Signed 11-Jun-2014 Bilat Scrn Digital & CAD Result: Comments: See Note; NOTES: [facility] Imaging Services [address] [place] [address] Breast Imaging Report MR#: [id number] Acct: [id number] Name: NEISHA TOBAR Rep #: [id number] : 1950 F 64 From: Ian Lamas MD PCP: Jessica Corona DO Status: REG CLI Exam# [id number] Ordering Dr: Jessica Corona DO MAMMOGRAPHY - [...] 17:24 EDT Tel , Ser vice support [phone], CC: Jessica Corona DO Braider Operator: Signed 29-Oct-2013 Gastric Emptying Study Result: Comments: See Note; NOTES: [facility] Imaging Services [address] [place] [address] Nuclear Medicine Report MR#: [id number] Acct: [id number] Name: ELIZABETNEISHA Shubham Rep #: [id number] : 1950 F 63 From: Celestine Garza DO PCP: Status: REG CLI Study: Gastric Emptying Study Date of Exam: 10/29/13 Exam# [id number] Ordering Dr: Jessica Corona DO CLINICAL: 63 [...] Service support , CC: Jessica Corona DO Braider Operator: Signed Family History Unknown Family Member Name [...] kg/m2 Body Surface Area Calculated 1.94 m2 00-Drr-61051:24 Comments: recheck 230/100 Temperature 98 f Comments: [...] see. but her last app[facility] was in [place] [facility] Pulse 70 /min Comments: Pattern: Regular [...] Arm; Cuff Size: Standard Weight 198 lb 1-Geronimo-11251:49 Pulse 68 /min Comments: Pattern: Regular Respiration [...] Details :38 Basic Metabolic Profile (BMP) Comments: [facility] [address] [place], [place], [address] GAP 7 (Normal) Range: 5-15 CO2 27.0 [...] A.D.A. criteria.Please note revised GLUCOSE reference range xzvyvelxw42/02/2018. :38 CBC W/Diff, Automated Comments: [facility] [address] [place], [place], [address] Absolute Lymph 1.21 {X10_3/ul} (Normal) Range: 0.83-4.51 [...] 4.2-5.4 WBC 5.8 K/mm3 (Normal) Range: 4.4-11.0 78-Cny-614131:49 Basic Metabolic Profile (BMP) Comments: [facility] [address] [place], [place], [address] GAP 5 (Normal) Range: 5-15 CO2 30.0 [...] A.D.A. criteria.Please note revised GLUCOSE reference range eijulvdaa77/02/2018. 2-Yft-239886:47 URINE KVNG CULTURE-HE COL Comments: PERFORMED BY: [facility], LLC[facility] [id number] Information: [id number] SRC:UR COUNT (93605) Antimicrobial MIHEAD (Normal) Comments: S = Susceptible; [...] Final report Culture,Comprehensive (Abnormal) 21-Jun-20188:17 Urinalysis, Office (87675) UA - LEUKOCYTE ESTERASE Negative (Normal) UA - NITRITE Negative (Normal) URINE UROBILINGN HE TIMED Normal mg/dL (Normal) UA - PROTEIN Negative mg/dL (Normal) UA - PH 7.5 (Normal) UA - BLOOD Negative (Normal) UA - SPECIFIC GRAVITY 1.010 (Normal) UA - KETONES Negative mg/dL (Normal) UA - BILIRUBIN Negative (Normal) UA - GLUCOSE Negative (Normal) 30-Cmc-00762:39 CBC, PLATELETS & AUT DIFF Comments: PATIENT NOT FASTINGPERFORMED BY: [employer] [facility] Qmthmb7530 DBi ServicesNov[facility] [id number] (25650) Immature Grans (Abs) 0.0 {x10E3/uL} (Normal) Range: [...] 3.77-5.28 WBC 4.8 {x10E3/uL} (Normal) Range: 3.4-10.8 74-Cfy-96427:39 C-REACT PROT HIGH SENS(hsCRP) Comments: PATIENT NOT FASTINGPERFORMED BY: [employer] Mfplsn5459 [facility] [id number] (46669) C-Reactive Protein, Cardiac 2.22 mg/L (Normal) Range: 0.00-3.00 Comments: Relative Risk for Future Cardiovascular Event Low <1.00 Average 1.00 - 3.00 High >3.00 37-Cin-35676:39 ESR-F (SED RATE ERYTHROCYTE - Comments: PATIENT NOT FASTINGPERFORMED BY: [facility]Atl[facility] CampusQpprfb1926 [facility] [id number] FEMALE) (63842) Sedimentation Rate-Westergren 9 mm/h (Normal) Range: 0-40 :39 LDH (LD) (LACTATE DEHYDROGENASE) Comments: PATIENT NOT FASTINGPERFORMED BY: [facility] Svkvhv9967 [facility] [id number] (89679) LDH 209 [iU]/L (Normal) Range: 119-226 Hemoglobin A1c 5.5 % (Normal) Comments: PATIENT NOT FASTINGPERFORMED BY: [facility] [id number] 3:06 Range: 4.8-5.6 Comments: . Pre-diabetes: 5.7 - 6.4 Diabetes: >6.4 Glycemic control for adults with diabetes: <7.0 Written Authorization WAR (Normal) Comments: PATIENT NOT FASTINGPERFORMED BY: [facility] [id number] 3:06 Comments: Written Authorization Received.Authorization received from ANNETTE POWELL LPN [id number] by Lidia Reddy 91-Lxh-131090:06 TSH (87293) Comments: PATIENT NOT FASTINGPERFORMED BY: [facility] [id number] TSH 2.370 {uIU/mL} (Normal) Range: 0.450-4.500 65-Ewb-169151:06 METABOLIC PANEL, COMPREHENSIVE Comments: PATIENT NOT FASTINGPERFORMED BY: [facility] [id number] (39940) ALT (SGPT) 19 [iU]/L (Normal) Range: 0-32 [...] 8-27 Glucose 102 mg/dL (Abnormal) Range: 65-99 20-Izn-068836:06 CBC W/AUTO DIFF WBC (53116) Comments: PATIENT NOT FASTINGPERFORMED BY: [facility] Fvmggi9024 [facility] [id number] Immature Grans (Abs) 0.0 {x10E3/uL} (Normal) Range: [...] (Normal) Range: 3.4-10.8 :56 Free T3 Comments: [facility] [address] [place], [address] FREE T3 2.7 pg/mL (Normal) Range: 2.18-3.98 :56 Lipid Profile Comments: [facility] [address] [place], [address] VLDL 34 mg/dL (Normal) Range: [...] mg/dL High Risk :56 Liver Profile Comments: [facility] [address] [place], [address] ; ov 03/20 D BILI 0.12 mg/dL (Normal) Range: 0.00-0.30 T BILI 0.50 mg/dL (Normal) Range: 0.20-1.00 ALT 24 U/L (Normal) Range: 13-56 ALK P 67 U/L (Normal) Range: 45-117 AST 19 U/L (Normal) Range: 15-37 GLOB 3.7 g/dL (Normal) Range: 2.2-4.2 ALB 3.8 g/dL (Normal) Range: 3.2-5.0 T PROT 7.5 g/dL (Normal) Range: 6.4-8.2 :56 T4 Free Direct Comments: [facility] [address] [place], [place], [address] T4 FREE DIRECT 0.97 ng/dL (Normal) Range: 0.76-1.46 19-Spe-17569:56 Thyroid Stim Hormone (TSH) Comments: [facility] [address] [place], [place], [address] TSH 3.42 {uIU/mL} (Normal) Range: 0.358-3.74 5-Ger-979395:52 GGTP 30 U/L (Normal) Comments: [facility] [address] [place], [place], [address] Range: 5-55 7-Cfp-324901:52 Liver Profile Comments: [facility] [address] [place], [place], [address] D BILI 0.15 mg/dL (Normal) Range: 0.00-0.30 T BILI 1.10 mg/dL (Abnormal) Range: 0.20-1.00 ALT 31 U/L (Normal) Range: 12-78 ALK P 61 U/L (Normal) Range: 45-117 AST 21 U/L (Normal) Range: 15-37 GLOB 3.8 g/dL (Normal) Range: 2.2-4.2 ALB 3.8 g/dL (Normal) Range: 3.4-5.0 Comments: Please note revised Albumin AND Globulin reference rangeeffective 2017. T PROT 7.6 g/dL (Normal) Range: 6.4-8.2 8-Ocy-488711:36 Bilirubin, Direct Comments: LIVER AND GGTP FOR [facility] REST FOR [facility] [address] [place], [address] D BILI 0.14 mg/dL (Normal) Range: 0.00-0.30 :36 CBC W/Diff, Automated Comments: LIVER AND GGTP FOR [facility] [address] [place], [address] Absolute Lymph 1.45 {X10_3/ul} (Normal) [...] 4.2-5.4 WBC 6.4 K/mm3 (Normal) Range: 4.4-11.0 1-Uvn-441390:36 Comprehensive Metabolic Profil Comments: LIVER AND GGTP FOR [facility] [address] [place], [address] GAP 9 (Normal) Range: 5-15 [...] 7-18 GLU 91 mg/dL (Normal) Range: 70-110 6-Fcr-585831:36 GGTP 22 U/L (Normal) Comments: LIVER AND GGTP FOR [facility] [address] [place], [address] Range: 5-55 7-Ygp-089051:36 Lipid Profile Comments: LIVER AND GGTP FOR [facility] [address] [place], [address] VLDL 56 mg/dL (Abnormal) Range: [...] Ratio,Random UR Comments: LIVER AND GGTP FOR [facility] [address] [place], [address] MALB:CREAT 38.1 {mg/g_CRE} (Abnormal) MICROALBUMIN,UR 43.8 mg/L (Normal) UR CREAT 115.00 mg/dL (Normal) 7-Pem-325406:36 Thyroid Stim Hormone (TSH) Comments: LIVER AND GGTP FOR [facility] [address] [place], [address] TSH 4.13 {uIU/mL} (Abnormal) Range: 0.358-3.74 :36 Urinalysis, Complete Comments: LIVER AND GGTP FOR [facility] was Urine Obtained? [facility] [address] [place], [address] HYALINE CAST 0-5 SEEN {/lpf} [...] BIOPSY (CHOOSE SITE) See Note (Normal) Comments: [facility] [address] [place], [place], [address] 0:00 Comments: Patient: NEISHA TOBAR : 1950 (66/F) Acct Num: [id number] Phys: MoralesSteve durant Unit Num: [id number] Loc: LABSPEC Specimen: [id number] Received: 02/11/16 - 0754 Spec Type: COLON BX TISSUES TISSUES: GROSS DESCRIPTION Received is one container labeled with the patient name and designated biopsy polyp right colon. The specimen consists of multiple irre gular fragments of light ramirez soft tissue that in aggregate measure 0.2 x 0.1 x 0.1 cm. The specimen is totally submitted in one cassette. / AM: 02/10/16 TC:5 CPT:41430 HEADER OPERATION: Colon oscopy with biopsy PRE-OP DIAGNOSIS: High-risk screen/polyp TISSUE SUBMITTED: Biopsy, polyp, right colon - rule out adenoma MICROSCOPIC DESCRIPTION Slides are reviewed. MICROSCOPIC DIAGNOS IS Right colon polyp, biopsy: Hyperplastic polyp. AM:crow 02/11/16 Signed Samuel Acevedo 02/11/16 <signature on file> C difficile Toxins A+B, Negative (Normal) Comments: PATIENT NOT FASTINGPERFORMED BY: [facility] [address] [place] [id number] 3:19 EIA Cryptosporidium EIA Negative (Normal) Comments: PATIENT NOT FASTINGPERFORMED BY: [facility]6[address] [facility] [id number] 3:19 :19 Giardia, EIA, Ova/Parasite Comments: PATIENT NOT FASTINGPERFORMED BY: [facility] [id number] Giardia lamblia Ag, Negative (Normal) EIA Result 1 NOCP (Normal) Comments: No ova, cysts, or parasites seen. Ova + Parasite Exam Final report Comments: These results were obtained using wet preparation(s) and trichromestained smear. This test does not include testing for Cryptosporidiumparvum, Cyclospora, or Microsporidia. (Normal) : Occult Blood, Fecal, Negative (Normal) Comments: PATIENT NOT FASTINGPERFORMED BY: [facility] [id number] 19 IA :19 Stool Culture Comments: PATIENT NOT FASTINGPERFORMED BY: [address] [id number] Information: SRC:ST STOOL E coli Shiga Toxin EIA Negative (Normal) Result 1 NCI (Normal) Comments: No Campylobacter species isolated. Campylobacter Culture Final report (Normal) Result 1 NSS (Normal) Comments: No Salmonella or Shigella recovered. Salmonella/Shigella Screen Final report (Normal) :19 White Blood Cells (WBC), Comments: PATIENT NOT FASTINGPERFORMED BY: [place] 7791770 [facility] [id number] Stool Result 1 NWBC (Normal) Comments: No white blood cells seen. White Blood Cells (WBC), Final report (Normal) Stool :54 CBC W/AUTO DIFF WBC Comments: PATIENT NOT FASTINGPERFORMED BY: [address] [id number] Information: [id number] (62435) Immature Grans (Abs) 0.0 {x10E3/uL} (Normal) Range: [...] PANEL, COMPREHENSIVE Comments: PATIENT NOT FASTINGPERFORMED BY: [facility]CoAtl[facility] CampusNpayij9262 [facility] [id number] (20542) ALT (SGPT) 19 [iU]/L (Normal) Range: 0-32 [...] 99 mg/dL (Normal) Range: 65-99 :54 TSH (09864) Comments: PATIENT NOT FASTINGPERFORMED BY: [facility] Rmsbij6171 [facility] [id number] TSH 2.210 {uIU/mL} (Normal) Range: 0.450-4.500 :05 Urinalysis, Office (28232) UA - LEUKOCYTE ESTERASE Negative (Normal) UA [...] CHOL 310 mg/dL (Abnormal) Comments: <200 mg/dL Xeeqasbwm684-683 mg/dL Borderline>240 mg/dL High Risk TRIG 185 [...] (Normal) UCLAR Clear (Normal) UCOL Yellow (Normal) 60-Abg-948913:26 HgA1C , Office (39509) HgA1C , Office 5.7 % (Normal) Range: [...] CHOL 286 mg/dL (Abnormal) Comments: <200 mg/dL Lkuspgjfk402-912 mg/dL Borderline>240 mg/dL High Risk :14 MIACRE [...] (Normal) UCLAR Clear (Normal) UCOL Yellow (Normal) 4-Xqc-705652:43 BILAT SCRN DIGITAL & CAD Radiology Report [...] Cutler M.D.January 23, 2013 at 12:21:32 PM [id number] Signed GP/GP If you are the referring physician and would like to consult with theradiologist who provided this interpretation, please contact Letty Mukherjee at [phone]. If this radiologist is unavailable, youwill be directed to another radiologist to as sist. If you are a patient with a question regarding this report, pleasecontactyour referring physician directly. Professional Interpretation Provided By: [employer], Phone ,Fax These documents contain legally protected [...] on 01/24/131712 Sign by: Kvng Cutler MD 42-Qtv-92277:57 ABDOMEN/PELVIS WITH CONTRAST Radiology Report See Note [...] narrowing at the L4, L5, and L5, N9mdwzra. IMPRESSION:Sigmoid diverticulosis. Signed:Kvng Cutler M.D.September 01, 2012 at 1:13:05 PM [phone] Signed GP/GP If you are the referring physician and would like to consult with theradiologist who provided this interpretation, please contact Letty Mukherjee at [phone]. If this radiologist is unavailable, youwill be directed to another radiologist to assist. If you are a patient with a question regarding this report, pleasecontactyour referring physician directly . Professional Interpretation Provided By: [employer], Phone , These documents contain legally protected [...] 09/01/12 1323 Sign by: Kvng Cutler MD 75-Vps-329437:53 CRE GFRAA 109 mL/min (Normal) GFR 90 mL/min (Normal) CREAT 0.7 mg/dL (Normal) Range: 0.6-1.0 05-Faj-894295:41 KNEE,4 OR MORE VIEWS Radiology Report See [...] regarding t his report, please call our [id number] line @ Dictated on 01/31/12 1436 by Alec MCKAY,RanulforiJemimaranscribed on 02/01/12 1327 by ITS IMPORTSign by Alec MCKAY,Kvng on 02/01/12 13 28 Sign by: Alec MCKAY,Kvng 0-Pdx-925158:36 CULTURE, URINE URINE CULTURE See Note {CFU/mL} (Normal) Comments: COLONY COUNT 25,000-50,000 ORGANISM 1: MIXED GRAM POSITIVE ORGANISMS 26-Apr-20119:17 Urinalysis, Office (16112) UA - BILIRUBIN Negative (Normal) UA - [...] :34 TSH 3.22 {uIU/mL} (Normal) Range: 0.358-3.74 42-Thx-421018:23 URINE KVNG CULTURE-IDENTIFICATN Comments: PATIENT NOT FASTINGPERFORMED BY: [facility] [address] [place] [place] [id number] Information: [id number] ([id number]) Antimicrobial MIHEAD (Normal) Comments: S = Susceptible; [...] primarily for treating urinary tract infections. (CLSI, [id number],2009) Result 1 Klebsiella pneumoniae Comments: 3,000 Colonies/mL . (Normal) Urine Final report (Normal) Culture,Comprehensive 52-Exw-00713:52 Urinalysis, Office (86572) UA - BILIRUBIN Negative (Normal) UA - BLOOD Negative (Normal) UA - GLUCOSE Negative (Normal) UA - KETONES Negative mg/dL (Normal) UA - LEUKOCYTE ESTERASE Small (Normal) UA - NITRITE Negative (Normal) UA - PH 5.0 (Normal) UA - PROTEIN Negative mg/dL (Normal) UA - SPECIFIC GRAVITY 1.015 (Normal) URINE UROBILINGN HE TIMED Normal mg/dL (Normal) 5-Cdl-045013:44 TRANSVAGINAL NON- Radiology Report See Note (Normal) Comments: Exam Number: [id number] LINICAL:This is a 60-year-old female patient with [...] were not visualized. Reported By: KVNG CUTLER 3-Wbo-756412:24 PELVIC (NON ) Radiology Report See Note (Normal) Comments: Exam Number: [id number] LINICAL:This is a 60-year-old female patient with [...] were not visualized. Reported By: KVNG CUTLER 83-Kyv-359235:53 URINE KVNG CULTURE-HE COL Comments: PATIENT NOT FASTINGPERFORMED BY: [facility] [facility] [id number] Information: SRC:URT [id number] COUNT (17208) Result 3 BETAGB (Normal) Comments: Beta hemolytic [...] primarily for treating urinary tract infections. (CLSI, [id number],2009) Result 2 Klebsiella pneumoniae Comments: 100 Colonies/mL . (Normal) Urine Final report (Normal) Culture,[facility] chucho 27-Ojy-13604:50 Urinalysis, Office (95794) UA - LEUKOCYTE ESTERASE Trace (Normal) UA - NITRITE Negative (Normal) URINE UROBILINGN HE TIMED Normal mg/dL (Normal) UA - PROTEIN Negative mg/dL (Normal) UA - PH 5.0 (Normal) UA - BLOOD Non Hemolyzed Trace (Normal) UA - SPECIFIC GRAVITY 1.010 (Normal) UA - KETONES Negative mg/dL (Normal) UA - BILIRUBIN Negative (Normal) UA - GLUCOSE Negative (Normal) 0-Qyb-795521:00 Urinalysis, Office (68045) UA - LEUKOCYTE ESTERASE Trace (Normal) UA [...] Comments: GLU,2HPPG 75gm GLUC PPG GLUP from 0902:E82278H. :34 CBC, [employer]PL[employer] 34.4 g/dL (Normal) [...] CHOL 283 mg/dL (Abnormal) Comments: <200 mg/dL Fnanbhwoh984-060 mg/dL Borderline>240 mg/dL High Risk HDL 53 [...] Report See Note (Normal) Comments: Exam Number: [id number] CLINICAL:This is a 60-year-old female patient with [...] of the thyroid. Reported By: KVNG CUTLER 89-Xxj-77106:10 COLON BX P-COLBX (Normal) Comments: OPERATIONColonoscopy with [...] cassette. / LONG:chris 03/19/10TC:4REPORT SIGNED: SHREE WEINSTEIN 03/20/1010-Feb-201065-Ley-536063:08 KNEE,4 OR MORE VIEWS ([place]) Radiology Report See Note (Normal) Comments: Exam Number: [id number] CLINICAL:Pain X-RAY EXAMINATION LEFT KNEE TECHNIQUE:Four views of the knee. COMPARISON:None. FINDINGS:Normal visualized distal femur. Normal visualized proximal tibia. Normal visu alized proximal fibula. There is minimal narrowing of the medial femorotibial compartment.Normal lateral femorotibial compartment. Normal patellofemoral articulation. There is no demonstrated jointeffu tamia. There is no demonstrated soft tissue swelling. IMPRESSION:Chronic degenerative changes, as discussed above. Reported By: SURINDER WOODRUFF 16-Mjq-218013:00 SPINE, LUMBAR W/W/O CONTRAST Radiology Report See Note (Normal) Comments: Exam Number: [id number] CLINICAL:59-year-old female with displaced lumbar disk low [...] Reported By: LANDY HIGHTOWER M.D. 28-Aug-20097:03 TRAN-D [id number] TRAN-DIRECT SeeNote (Normal) Comments: Result: Negative [facility]formed At: [facility] [address] [place], [place] [id number] At: [facility] [address] [place], [place] [id number] :03 ANTI-CCP 752863 6 {units} (Normal) Range: 0-19 Comments: Negative [...] Report See Note (Normal) Comments: Exam Number: [id number] BILATERAL SCREENING MAMMOGRAM COMPARISONComparison is made to [...] The mammogramswere also examined with computer-aided detection software([employer] Reported By: CHUCK PEREZ M.D. 15-Glm-185843:46 SHOULDER,MIN 2 VIEWS Radiology Report See Note (Normal) Comments: Exam Number: [id number] RIGHT SHOULDER HISTORYShoulder pain. TECHNIQUEFour views of [...] normal variant. Reported By: LUIS JORGE M.D. 29-Apb-729303:00 LQD PAP [id number] Comments: CYTOLOGY INFORMATION:- CLINICAL INFORMATION: POSTMENOPAUSAL- DATE LMP/MENOPAUSE: - COLLECTION VIAL: Thin Prep Vial- SWATCHER SOURCE: CERVICAL/ENDOCERVICAL- COLLECTION TECHNIQUE: BRUSH/SPATULA ADEQ Comment (Normal) Comments: Satisfactory for evaluation. Endocervical and/or squamous metaplasticcells (endocervical component) are present. COMM . (Normal) DIAGN Comment (Normal) Comments: NEGATIVE FOR INTRAEPITHELIAL LESION AND MALIGNANCY. HPV RFLX Comment (Normal) Comments: The HPV DNA reflex criteria were not met with this specimenresult therefore, no HPV testing was performed. .Performed At: [facility] [address] [place], [place] [id number] PAPSMR Comment (Normal) Comments: The Pap smear is a screening test designed to aid in thedetection of pre-malignant and malignant conditions of theuterine cervix. It is not a diagnostic procedure andshould not be used as the sole mean s of detecting cervicalcancer. Both false-positive and false-negative reports dooccur. . 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) Comments: Cristal Pisano Surgical Technologist Plan of Care Name Dates Details Instructions [...] Diagnostic Tests Indication: Headache Headache : Reviewed Member Service Representative Letter Indication: Headache Hypertensive heart disease without [...] Indication: Epigastric pain Epigastric pain : Reviewed Member Service Representative Letter Indication: Epigastric pain Epigastric pain : [...] GERD (gastroesophageal reflux disease) Planned Observations ALDOSTERONE (29304)Indication: Hypertensive heart disease without congestive heart failure On: :28 Request RENIN (52247)Indication: Hypertensive heart disease without congestive heart failure On: :28 Request METANEPHRINES - URINE (12792)Indication: Hypertensive heart disease without congestive heart failure On: : Request CATECHOLAMINES TOTAL, URINE (63343)Indication: Hypertensive heart disease without congestive heart failure On: : Request URINE VMA (04851)Indication: Hypertensive heart disease without congestive heart failure On: : Request Metabolic Panel, Basic (68738)Indication: Therapeutic drug monitoring On: 03-Jez-22333:13 Request Comments: give to jud to review HEPATIC FUNCTION PANEL (04331)Indication: Common bile duct dilation On: 97-Mob-479934:18 Request HEPATIC FUNCTION PANEL (96219)Indication: Epigastric pain On: 58-Jxc-101318:51 Request LIPID PANEL (61513)Indication: Hypercholesteremia On: :25 Request TSH (40196)Indication: Abnormal TSH On: :21 Request T4, FREE (THYROXINE) (06845)Indication: Abnormal TSH On: :21 Request T3, FREE (TRIDOTHYRONINE) (93564)Indication: Abnormal TSH On: :21 Request TSH (66677)Indication: Hypercholesteremia On: :14 Request URINALYSIS, W/ MICRO (13693)Indication: Hypertensive heart disease without congestive heart failure On: :14 Request MICROALBUMIN: CREATININE RATIO (08784) AND (81886)Indication: Hypertensive heart disease without congestive heart failure On: :14 Request METABOLIC PANEL, COMPREHENSIVE (42528)Indication: Hypertensive heart disease without congestive heart failure On: :14 Request LIPID PANEL (22226)Indication: Hypercholesteremia On: :14 Request CBC W/AUTO DIFF WBC (26449)Indication: Hypertensive heart disease without congestive heart failure On: 27-Off-237617:14 Request Cryptosporidium Sp Ag, Direct Fluorescent Ab (48779)Indication: Diarrhea On: :44 Request GIARDIA LAMBLIA ANTIBODY (92437)Indication: Diarrhea On: :43 Request C-DIFFICILE, STOOL (80574)Indication: Diarrhea On: :43 Request OVA & PARASITE DIR SMEAR (48649)Indication: Diarrhea On: :43 Request OCCULT BLOOD FECES SCREEN (44175)Indication: Diarrhea On: :43 Request LEUKOCYTE COUNT, FECAL (98132)Indication: Diarrhea On: :43 Request KVNG CULTURE-STOOL (61575)Indication: Diarrhea On: :43 Request FECAL OCCULT HGB ASSAY- tubes sent home (43939)Indication: Encounter for Medicare annual wellness exam On: 65-Aqr-88189:28 Request TSH (68530)Indication: Hypertensive heart disease without congestive heart failure On: 04-Edy-938207:27 Request URINALYSIS, W/ MICRO (73535)Indication: Hypertensive heart disease without congestive heart failure On: 47-Wle-558343:27 Request MICROALBUMIN: CREATININE RATIO (06343) AND (31291)Indication: Hypertensive heart disease without congestive heart failure On: 76-Kgb-554277:27 Request METABOLIC PANEL, COMPREHENSIVE (08257)Indication: Hypertensive heart disease without congestive heart failure On: 51-Nrx-680088:27 Request CBC WITH MANUAL DIFF (63225)Indication: Hypertensive heart disease without congestive heart failure On: 55-Hit-055911:27 Request LIPID PANEL (94127)Indication: Hypercholesteremia On: 05-Feb-2014 Request URINE KVNG CULTURE-HE COL COUNT (30144)Indication: Urinary frequency On: :17 Request Magnesium (40118)Indication: Hypopotassemia On: 23-Ork-930872:50 Request Metabolic Panel, Basic (42329)Indication: Hypopotassemia On: 43-Gkn-574682:49 Request TSH (87790)Indication: Hypercholesteremia On: 37-Vhj-25191:09 Request URINALYSIS, W/ MICRO (50018)Indication: Hypertensive heart disease without congestive heart failure On: :09 Request MICROALBUMIN: CREATININE RATIO (92292) AND (91743)Indication: Hypertensive heart disease without congestive heart failure On: :09 Request METABOLIC PANEL, COMPREHENSIVE (61486)Indication: Hypertensive heart disease without congestive heart failure On: :09 Request LIPID PANEL (24695)Indication: Hypercholesteremia On: :09 Request CBC WITH MANUAL DIFF (01532)Indication: Hypertensive heart disease without congestive heart failure On: :09 Request URINE KVNG CULTURE-HE COL COUNT (38228)Indication: Dysuria On: 2-Inq-901462:00 Request Glucose, PP/2 Hour (00695)Indication: Other specified abnormal findings of blood chemistry On: :21 Request HEPATIC FUNCTION PANEL (17367)Indication: Hypercholesteremia On: :57 Request LIPID PANEL (47756)Indication: Hypercholesteremia On: :57 Request Comments: DO IN 3 MONTHS Glucose, PP/2 Hour (37300)Indication: Other specified abnormal findings of blood chemistry On: :57 Request TRAN (ANTINUCLEAR ANTIBODY) (04854)Indication: Pain in unspecified joint On: :29 Request C-REACTIVE PROTEIN (18949)Indication: Pain in unspecified joint On: :29 Request CBC WITH MANUAL DIFF (08510)Indication: Pain in unspecified joint On: :29 Request CCP ANTIBODY (59784)Indication: Pain in unspecified joint On: :29 Request METABOLIC PANEL, COMPREHENSIVE (10307)Indication: Pain in unspecified joint On: :29 Request RHEUMATOID FACTOR-QUANT (41563)Indication: Pain in unspecified joint On: :29 Request SED RATE ERYTHROCYTE (96981)Indication: Pain in unspecified joint On: :29 Request TSH (31951)Indication: Pain in unspecified joint On: :29 Request FECAL OCCULT- Tubes sent home (95701)Indication: Benign essential hypertension On: :27 Request TSH (58207)Indication: Benign essential hypertension On: :09 Request URINALYSIS W/O MICRO (65124)Indication: Benign essential hypertension On: :09 Request MICROALBUMIN: CREATININE RATIO (03866) AND (90034)Indication: Benign essential hypertension On: :09 Request METABOLIC PANEL, COMPREHENSIVE (13892)Indication: Benign essential hypertension On: :09 Request LIPID PANEL (41389)Indication: Benign essential hypertension On: :09 Request CBC WITH MANUAL DIFF (95036)Indication: Benign essential hypertension On: : Request HEPATIC FUNCTION PANEL (31111)Indication: Hypercholesteremia On: :56 Request Comments: DO IN 3 MONTHS LIPID PANEL (71435)Indication: Hypercholesteremia On: :56 Request URINALYSIS W/O MICRO (92710)Indication: Hypertension On: :51 Request TSH (97828)Indication: Hypertension On: :51 Request MICROALBUMIN URINE QUANT (19338)Indication: Hypertension On: :51 Request METABOLIC PANEL, COMPREHENSIVE (90268)Indication: Hypertension On: :50 Request LIPID PANEL (99085)Indication: Hypertension On: :50 Request CBC WITH MANUAL DIFF (04825)Indication: Hypertension On: :50 Request Planned Encounters Medical; [...] FLAT PLATE AND On: 21-Jun-2018 Intent ERECT (02272)By: Jud Samaniego CNP X-RAY OF CERVICAL SPINE, TWO VIEWS On: 02-Jun-2018 Intent (77587)By: Jessica Corona DO, DO, Kathleen Radiology - Lumbar SpineBy: Mohamud On: 25-May-2018 Intent Addie ELECTROCARDIOGRAM, COMPLETE (ECG) On: 04-May-2018 Intent (84346)By: Jessica Corona DO Comments: nsr / no acute chg - pvc present and IVCD DO Jessica VFFP-ZU-MUUW BEHAVIORAL COUNSELING On: 28-Apr-2018 Intent FOR OBESITY, 15 MINUTES (G0447)By: Jessica Corona DO, DO, Kathleen DEXA SCAN AXIAL SKELETON (50555)By: On: 28-Apr-2018 Intent Jessica Corona DO, DO, Kathleen MRCP (MAGNETIC RESONANCE On: 06-Feb-2018 Intent CHOLANGIOPANCREATOGRAPHY) (S8037)By: Jessica Corona DO, DO, Kathleen ULTRASOUND OF UPPER ABDOMEN On: 27-Jan-2018 Intent (89895)By: Jessica Corona DO Comments: attention size of CBD DO, Jessica SCREENING DIGITAL TOMOSYNTHESIS OF On: 09-Jan-2018 Intent BREAST (66497)By: Addie Odell LPN ELECTROCARDIOGRAM, COMPLETE (ECG) On: 03-Aug-2017 Intent (74648)By: Jessica Corona DO Comments: sinus vinicio no new acute chg DOJessica MAMMOGRAM BREAST BILATERAL SCREENING On: 03-Jul-2015 Intent DIGITAL (67103)By: Jessica Corona DO, DO, Kathleen Radiology - ChestBy: Jud Samaniego CNP On: 26-May-2015 Intent E Aerosol Treatment (32952)By: Danette On: 26-May-2015 Intent Jud SPRINGER Aerosol Treatment (04204)By: Froylan On: 05-May-2015 Intent Sandy KENT Radiology - Lumbar SpineBy: Danette On: 15-Apr-2015 Intent Jud SPRINGER Toradol Injection, 30 mg (J1885)By: On: 11-Apr-2015 Intent Jud Samaniego CNP ADMINISTRATION OF PNEUMOCOCCAL On: 10-Jun-2014 Intent VACCINE (G0009)By: Jessica Corona DO, DO, Kathleen PNEUM VAC ADLT/IMUMNOSPR, SBC/INTRM On: 10-Jun-2014 Intent (74509)By: Jessica Corona DO Comments: lot: [id number]: 03/22/15site/route: L del/IMamt: 0.5mLVIS signed when applicableChelsJULIEN baird DO, Kathleen KYUV-MH-NDAP BEHAVIORAL COUNSELING On: 10-Jun-2014 Intent FOR OBESITY, 15 MINUTES (G0447)By: Jessica Corona DO, DO, Kathleen BILATERAL MAMMOGRAMS (63613)By: On: 04-Jun-2014 Intent Jessica Corona DO, DO, Kathleen EKG (72673)By: Jessica Corona DO On: 04-Feb-2014 Intent Jessica Corona DO Comments: nsr no acute cg Eprescribed prescriptions (G8553)By: On: 16-Nov-2013 Intent Jessica Corona DO, DO, Kathleen gastric emptying studyBy: Chloe SCHROEDER, On: 10-Oct-2013 Intent Jessica Proctor DO FLU VAC, SPLIT, >3 YEARS, INTRAMUSC On: 06-Sep-2013 Intent (04871)By: Addie Odell LPN Comments: Lot:[id number]:6.14Amt:0.5mlRoute:IMSite: L DltdGiven By: LAUREN Fontenot signed ADMINISTRATION OF INFLUENZA VIRUS On: 06-Sep-2013 Intent VACCINE (G0008)By: Addie Odell LPN EKG (95047)By: Jessica Corona DO On: 26-Mar-2013 Intent Jessica Corona DO Comments: nsr no acute ischemic changes/ borderline LVH Eprescribed prescriptions (G8553)By: On: 26-Mar-2013 Intent ManShaye brittonsea Eprescribed prescriptions (G8553)By: On: 23-Feb-2013 Intent ManShaye brittonsea MAMMOGRAM, SCREENING, BOTH BREASTS On: 19-Jan-2013 Intent (85243)By: Jessica Corona DO, DO, Kathleen CT - Abdomen & Pelvis (IV Contrast On: 28-Aug-2012 Intent Needed)By: Jessica Corona DO, DO, Kathleen Eprescribed prescriptions (G8553)By: On: 28-Aug-2012 Intent Addie Odell DONTE DRAIN/INJECT, JOINT/BURSA (23884)By: On: 25-Feb-2012 Intent Jessica Corona DO, DO, Comments: inject 2 cc marcaine 1 cc kenolog Jessica Radiology - Knee - RightBy: Chloe On: 31-Jan-2012 Jessica Mauricio DO, DO, Kathleen Eprescribed prescriptions (G8553)By: On: 25-Oct-2011 Intent Jessica Coroan DO, DO, Kathleen TDAP VACCINE >7 IM (13855)By: Chloe On: 02-Jul-2011 Jessica Mauricio DO, DO, Kathleen Comments: 0.5cc given im rt dltd lot [id number] exp 08-11-13 EKG (73961)By: Jessica Corona DO On: 01-Feb-2011 Jessica Lemus DO Comments: nsr no acute changes-- borderline LVH -- but seen on echo best Bio Z (01559)By: Jessica Corona DO On: 01-Feb-2011 Intent Jessica [...] On: 18-Aug-2009 Intent Jessica Proctor DO EKG (29644)By: Jessica Corona DO On: 18-Aug-2009 Intent Jessica Corona DO Comments: nsr no acute changes Pulse Oximetry (18193)By: Chloe SCHROEDER On: 05-Mar-2009 Intent Jessica Proctor DO Comments: 93% RA Aerosol Treatment (78992)By: Chloe On: 05-Mar-2009 Jessica Mauricio DO, DO, Kathleen Comments: better air exchange no wheeze Solu- Medrol Injection, 125mg On: 05-Mar-2009 Intent (J2930)By: Jessica Corona DO Comments: injection given in left glutues alvarado. Pt tolerated well. ESSJ408/2011 Jessica SCHROEDER EKG (86971)By: Jessica Corona DO On: 25-Feb-2008 Intent Jessica [...] failure Hypercholesteremia : DISCONTINUED - LIPID PANEL (90141) Indication: Hypercholesteremia Hypercholesteremia : DISCONTINUED - TSH (67743) Indication: Hypercholesteremia Hypertensive heart disease without congestive heart failure : DISCONTINUED - URINALYSIS, W/ MICRO (83656) Indication: Hypertensive heart disease without congestive heart failure Hypertensive heart disease without congestive heart failure : DISCONTINUED - MICROALBUMIN: CREATININE RATIO (44228) AND (85704) Indication: Hypertensive heart disease without congestive heart failure Hypertensive heart disease without congestive heart failure : DISCONTINUED - METABOLIC PANEL, COMPREHENSIVE (26586) Indication: Hypertensive heart disease without congestive heart failure Hypertensive heart disease without congestive heart failure : DISCONTINUED - CBC WITH MANUAL DIFF (92892) Indication: Hypertensive heart disease without congestive heart [...] are helping. 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 The patient has noticed [...] [facility] End: 06-Sep-2006 14:06 Payers MedicareEast [facility] Hospitala/Supplement Francy Tobar; shubham guarantor
--- OUTSIDE RECORDS SUMMARY | 2018-12-17 17:01 | XMS RPT_ITS | Continuity of Care Document ---
:1950 Author Organization [facility] Address [address] [place] [address] Phone Care Team Providers Name Role Phone Jessica Corona DO Unavailable Huber MCKAY, Dr. Benitez Unavailable [facility], [facility] Unavailable DONTE Odell Unavailable Unavailable Emily Polk [...] Start : 25-May-2018 End : 28-May-2018 Inactive Comments:YORNWLfvmldgw-281Eygmpiwz-531Owxgbyhte-000OD Nget-576TR-Alrdqdzw of Right Side (M54.31)#Three CELEBREX, 200MG (Oral [...] Quantity: 30 {Tablet} Refills: 3 Ordered:11-Apr-2015 Slarb SOLDER LEVELER PRINTED CIRCUIT BOARDSSandy Bach Start : 10-Oct-2013 End : 11-Apr-2015 [...] Lead Electrocardiogram Result: Comments: See Note; NOTES: [facility] Cardiovascular Services [address] [place] [address] 12 Lead EKG 09/09/18 0949 MR#: [id number] Acct: [id number] Name: NEISHA TOBAR ep #: [id number] : 1950 68 From: Ian Gudino MD [...] Abnormal ECG Confirmed by TERESE MCKAY, IAN ([id number]), television news video editor CHARITY VILLEGAS ([id number]) on 09/12/2018 11:06:08 AM Referred By: Devora Corona Confirmed By:IAN GUDINO MD 09/12/18 1106 Date Ian Gudino MD CC: Anel Hunter MD; Jessica Corona DO Signed 09-Sep-2018 Emergency Department Summary Result: Comments: See Note; NOTES: [facility] Medical Records Department [address] [place] [address] Emergency Department Summary 09/09/18 0934 MR#: [id number] Acct: [id number] Name: NEISHA TOBAR Rep #: [id number] : 1950 68 From: Anel Hunter MD [...] Hypertension, improved This note was generated with [employer] dictation software. It may contain incorrect words, [...] your Primary Care Provider. Call [facility] ([phone]) or report to the [facility] Emergency Room. Call 911 if necessary. 09/09/18 1633 <Electronically signed by Anel Hunter MD> Date Anel Hunter MD Cos igner Signature (If Indicated): Date CC: Jessica Corona DO 09-Sep-2018 Discharge Instruction Result: Comments: See Note; NOTES: [facility] Medical Records Department [address] [place] [address] Discharge Instruction 09/09/18 1203 MR#: [id number] Acct: [id number] Name: ELIZABETLydia SHANNAN Shubham Rep #: [id number] : 1950 68 From: Anel Hunter MD [...] your Primary Care Provider. Call [facility] ([phone]) or report to the closest Emergency Room. Call 911 if necessary. 09/09/18 1207 < Electronically signed by Anel Hunter MD> Date [facility]el [facility] Signature (If Indicated): Date CC: Jessica Corona DO 09-Sep-2018 Brain/Head without Contrast Result: Comments: See Note; NOTES: [facility] Imaging Services [address] [place] [address] Brain/Head without Contrast MR#: [id number] Acct: [id number] Name: NEISHA TOABR Rep #: [id number] : 1950 F 68 From: Italo Brown DO PCP: Jessica Corona DO Status: REG ER Study: Brain/Head without Contrast Date of Exam: 09/09/18 Exam# [id number] [facility]ing Dr[facility] BRAIN WITHOUT CONTRAST REASON FOR [...] CC: Anel Hunter MD; Jessica Corona DO Data Analyst Etl Developer: Signed 21-Jun-2018 Abd Inc Decub and/or Erect Result: Comments: See Note; NOTES: [facility] Imaging Services [address] [place] [address] [employer] Inc Decub and/or Erect MR#: [id number] Acct: [id number] Name: NEISHA TOBAR Rep #: [id number] : 1950 F 68 From: Tapan Gore MD PCP: Jessica Corona DO Status: REG CLI Study: Abd Inc Decub and/or Erect Date of Exam: 06/21/18 Exam# [id number] Ordering Dr: Jud Samaniego Y: X-RAY - [...] , Service support , CC: Jud Samaniego SILVER SOLDERER; Jessica Corona DO Data Analyst Etl Developer: Signed 02-Jun-2018 Cerv Spine 2 or 3 Views Result: Comments: See Note; NOTES: [facility] Imaging Services [address] [place] [address] Cerv Spine 2 or 3 Views MR#: [id number] Acct: [id number] Name: NEISHA TOBAR Rep #: [id number] : 1950 F 68 From: Jamil Paulson MD PCP: Jessica Corona DO Status: REG CLI Study: Cerv Spine 2 or 3 Views Date of Exam: 06/02/18 Exam# [id number] Ordering Dr: Jessica Corona DO UDY: X-RAY [...] Service support , CC: Jessica Corona DO Data Analyst Etl Developer: Signed 25-May-2018 L/S Spine Min 4 Views Result: Comments: See Note; NOTES: [facility] Imaging Services [address] [place] [address] L/S Spine Min 4 Views MR#: [id number] Acct: [id number] Name: NEISHA TOBAR Rep #: [id number] : 1950 F 68 From: Mikayla Guerrier MD PCP: Jessica Corona DO Status: REG CLI Study: L/S Spine Min 4 Views Date of Exam: 05/25/18 Exam# [id number] Ordering Dr: Addie Mallory SILVER SOLDERER-C STUDY: X -RAY - LUMBAR SPINE REASON [...] , CC: DEYSI Mallory; Jessica Corona DO Data Analyst Etl Developer: Signed 09-May-2018 Dexa Bone Density Study Result: Comments: See Note; NOTES: [facility] Imaging Services [address] [place] [address] Dexa Bone Density Study MR#: [id number] Acct: [id number] Name: NEISHA TOBAR Rep #: [id number] : 1950 F 68 From: Kvng Cutler MD PCP: Jessica Corona DO Status: REG CLI Study: Dexa Bone Density Study Date of Exam: 05/09/18 Exam# [id number] Ordering Dr: Jessica Corona DO STUDY: DUAL [...] Kvng Cutler MD at 8:25 EDT Tel [phone], Service support , CC: Jessica Corona DO Data Analyst Etl Developer: Signed 14-Feb-2018 MRCP Abdomen without Contrast Result: Comments: See Note; NOTES: [facility] Imaging Services [address] [place] [address] MRCP Abdomen without Contrast MR#: [id number] Acct: [id number] Name: NEISHA TOBAR Rep #: [id number] : 1950 F 68 From: Vj Rajput MD PCP: Jessica Corona DO Status: REG CLI Study: MRCP Abdomen without Contrast Date of Exam: 02/14/18 Exam# [id number] Ordering Dr: Rigo Corona DO STUDY: MR [...] Service support , CC: Jessica Corona DO Data Analyst Etl Developer: Signed 03-Feb-2018 Abdomen Limited Result: Comments: See Note; NOTES: [facility] Imaging Services [address] [place] [address] Abdomen Limited MR#: [id number] Acct: [id number] Name: NEISHA TOBAR Rep #: [id number] D OB: 1950 F 68 From: Kvng Cutler MD PCP: Jessica Corona DO Status: REG CLI Study: Abdomen Limited Date of Exam: 02/03/18 Exam# [id number] Ordering Dr: Jessica Corona DO STUDY: ABDOMINAL [...] Kvng Cutler MD at 13:52 EDT Tel [phone], Service support , CC: Jessica Corona DO Data Analyst Etl Developer: Signed 31-Jan-2018 SCREENING MAMM (CAD), BILAT Result: Comments: See Note; NOTES: [facility] Imaging Services [address] [place] [address] SCREENING MAMM (CAD), BILAT MR#: [id number] Acct: [id number] Name: NEISHA TOBAR Rep #: [id number] : 1950 F 67 From: Kvng Cutler MD PCP: Jessica Corona DO Status: REG CLI Study: SCREENING MAMM (CAD), BIL Date of Exam: 01/31/18 Exam# [id number] Ordering Dr: Lidia Corona DO MAMMOGRAPHY - [...] delay biopsy of a clinically suspicious abnormality. [id number] Electronically Signed: Kvng Cutler MD at 14:26 EDT Tel [phone], Service supp ort , CC: Jessica Corona DO Data Analyst Etl Developer: Signed 28-Aug-2015 Bilat Scrn Digital AND CAD Result: Comments: See Note; NOTES: [facility] Imaging Services [address] [place] [address] Breast Imaging Report MR#: [id number] Acct: [id number] Name: NEISHA TOBAR Rep # : [id number] : 1950 F 65 From: Kvng Cutler MD PCP: Jessica Corona DO Status: REG CLI Study: Leighann España Digital AND CAD Date of Exam: 08/28/15 Exam# [id number] Ordering Dr: Raymond Corona DO MAMMOGRAPHY - [...] be sent to the patient by the [facility] within 30 days. Approximately 10% of breast cancers are not detected by mammography. A normal mammogram should not delay biopsy of a clinically suspicious abnormality. Electronically Mirian d: Kvng Cutler MD at 8:05 EDT Tel [phone], Service support [phone], CC: Jessica Corona DO Data Analyst Etl Developer: Signed 03-Jun-2015 PT Discharge Summary Result: Comments: See Note; NOTES: [facility] Therapy [facility] [address] [place], [place] [address] Fax REHABILITATION SERVICES DISCHARGE SUMMARY MR#: [id number] Acct: [id number] Name: NEISHA TOBAR Rep #: [id number] : 1950 65 From: Sandy Nelson Referring [...] clinic. Sandy Nelson, PT T: NTS JOB: [id number] <Electronically signed by Sandy Nelson > 06/03/15 1726 CC: Signed 26-May-2015 Chest PA and Lateral Result: Comments: See Note; NOTES: [facility] Imaging Services [address] [place] [address] Radiology Report MR#: [id number] Acct: [id number] Name: NEISHA TOBAR Rep #: [id number] : 1950 F 65 From: Zoila Allen MD PCP: Jessica Corona DO Status: REG CLI Study: Chest PA and Lateral Date of Exam: 05/26/15 Exam# [id number] Ordering Dr: Jud Samaniego STUDY: X-RAY C [...] MD at 12:07 EDT , Service support [phone], RAD /Chest PA and Lateral IMPRESSION: There is a left midlung field calcified granuloma. There is bilateral lower lobe scarring/atelectasis. No radiographic evidence of bronchitis. Electronically Sig kyle: Zoila Allen MD at 12:07 EDT , Service support [phone], CC: Jud Corona DO Data Analyst Etl Developer: Signed 13-May-2015 Inital Evaluation - PT Result: Comments: See Note; NOTES: [facility] [place] [address] Fax REHABILITATION SERVICES INITIAL EVALUATION MR#: [id number] Acct: [id number] Name: NEISHA TOBAR Rep #: [id number] : 1950 65 From: Sandy Nelson Referring [...] needed. Sandy Nelson, PT T: NTS JOB: [id number] <Electronically signed by Sandy Nelson > 05/13/15 0818 CC: Signed For Medicare only, by signing this I certify the plan of care. Physicians Signature Date 16-Apr-2015 L/S Spine Min 4 Views Result: Comments: See Note; NOTES: [facility] Imaging Services [address] [place] [address] Radiology Report MR#: [id number] Acct: [id number] Name: NEISHA TOBAR Rep #: [id number] : 1950 F 65 From: Rod Pollard DO PCP: Jessica Corona DO Status: REG CLI Study: L/S Spine Min 4 Views Date of Exam: 04/16/15 Exam# [id number] Ordering Dr: Jud Samaniego STUDY: X-RA Y [...] Signed: Rod Pollard at 16:48 EDT Tel [phone], Service support [phone], RAD/L/S Spine Min 4 Views IMPRESSION: Degenerative ch anges of the spine, as detailed above. Electronically Signed: Rod Pollard at 16:48 EDT Tel [phone], Service support [phone], CC: Jud Samaniego; Rigo Corona DO Data Analyst Etl Developer: Signed 11-Jun-2014 Bilat Scrn Digital & CAD Result: Comments: See Note; NOTES: [facility] Imaging Services [address] [address] Breast Imaging Report MR#: [id number] Acct: [id number] Name: NEISHA TOBAR Rep #: [id number] : 1950 F 64 From: Ian Lamas MD PCP: Jessica Corona DO Status: REG CLI Exam# [id number] Ordering Dr: Jessica Corona DO MAMMOGRAPHY - [...] 17:24 EDT Tel , Ser vice support [phone], CC: Jessica Corona DO Data Analyst Etl Developer: Signed 29-Oct-2013 Gastric Emptying Study Result: Comments: See Note; NOTES: [facility] Imaging Services [address] [place] [address] Nuclear Medicine Report MR#: [id number] Acct: [id number] Name: ELIZABETNEISHA Shubham Rep #: [id number] : 1950 F 63 From: Celestine Garza DO PCP: Status: REG CLI Study: Gastric Emptying Study Date of Exam: 10/29/13 Exam# [id number] Ordering Dr: Jessica Corona DO CLINICAL: 63 [...] Service support , CC: Jessica Corona DO Data Analyst Etl Developer: Signed Family History Unknown Family Member Name [...] kg/m2 Body Surface Area Calculated 1.94 m2 66-Lda-03787:24 Comments: recheck 230/100 Temperature 98 f Comments: [...] see. but her [place] [facility] [place] [facility] Pulse 70 /min Comments: Pattern: Regular Respiration [...] Arm; Cuff Size: Standard Weight 198 lb 1-Geronimo-59606:49 Pulse 68 /min Comments: Pattern: Regular Respiration [...] Details :38 Basic Metabolic Profile (BMP) Comments: [facility] [address] [place], [place], [id number] GAP 7 (Normal) Range: 5-15 CO2 27.0 [...] A.D.A. criteria.Please note revised GLUCOSE reference range bswgdvilo91/02/2018. :38 CBC W/Diff, Automated Comments: [facility] [address] [place], [place], [address] Absolute Lymph 1.21 {X10_3/ul} (Normal) Range: 0.83-4.51 [...] 4.2-5.4 WBC 5.8 K/mm3 (Normal) Range: 4.4-11.0 48-Stx-952133:49 Basic Metabolic Profile (BMP) Comments: [facility] [address] [place], [place], [address] GAP 5 (Normal) Range: 5-15 CO2 30.0 [...] A.D.A. criteria.Please note revised GLUCOSE reference range angkcfvam88/02/2018. 0-Lhs-679992:47 URINE KVNG CULTURE-HE COL Comments: PERFORMED BY: [facility] [id number] Information: [id number] SRC:UR COUNT (00396) Antimicrobial MIHEAD (Normal) Comments: S = Susceptible; [...] Final report Culture,Comprehensive (Abnormal) 21-Jun-20188:17 Urinalysis, Office (94526) UA - LEUKOCYTE ESTERASE Negative (Normal) UA - NITRITE Negative (Normal) URINE UROBILINGN HE TIMED Normal mg/dL (Normal) UA - PROTEIN Negative mg/dL (Normal) UA - PH 7.5 (Normal) UA - BLOOD Negative (Normal) UA - SPECIFIC GRAVITY 1.010 (Normal) UA - KETONES Negative mg/dL (Normal) UA - BILIRUBIN Negative (Normal) UA - GLUCOSE Negative (Normal) 72-Eeu-78679:39 CBC, PLATELETS & AUT DIFF Comments: PATIENT NOT FASTINGPERFORMED BY: [facility] Juezgm5277 [facility] [id number] (93776) Immature Grans (Abs) 0.0 {x10E3/uL} (Normal) Range: [...] 3.77-5.28 WBC 4.8 {x10E3/uL} (Normal) Range: 3.4-10.8 69-Czz-63778:39 C-REACT PROT HIGH SENS(hsCRP) Comments: PATIENT NOT FASTINGPERFORMED BY: [employer] Hubpqt6444 [facility] [id number] (45632) C-Reactive Protein, Cardiac 2.22 mg/L (Normal) Range: 0.00-3.00 Comments: Relative Risk for Future Cardiovascular Event Low <1.00 Average 1.00 - 3.00 High >3.00 78-Ats-39785:39 ESR-F (SED RATE ERYTHROCYTE - Comments: PATIENT NOT FASTINGPERFORMED BY: [facility]ptel7345 [facility] [id number] FEMALE) (42128) Sedimentation Rate-Westergren 9 mm/h (Normal) Range: 0-40 :39 LDH (LD) (LACTATE DEHYDROGENASE) Comments: PATIENT NOT FASTINGPERFORMED BY: [facility] Slehsu3434 [facility] [id number] (69756) LDH 209 [iU]/L (Normal) Range: 119-226 Hemoglobin A1c 5.5 % (Normal) Comments: PATIENT NOT FASTINGPERFORMED BY: [facility]6370 [facility] [id number] 3:06 Range: 4.8-5.6 Comments: . Pre-diabetes: 5.7 - 6.4 Diabetes: >6.4 Glycemic control for adults with diabetes: <7.0 Written Authorization WAR (Normal) Comments: PATIENT NOT FASTINGPERFORMED BY: [facility]6370 [facility] [id number] 3:06 Comments: Written Authorization Received.Authorization received from ANNETTE POWELL LPN [id number] by Lidia Reddy 53-Wef-705308:06 TSH (08359) Comments: PATIENT NOT FASTINGPERFORMED BY: [facility] [id number] TSH 2.370 {uIU/mL} (Normal) Range: 0.450-4.500 25-Oqg-327893:06 METABOLIC PANEL, COMPREHENSIVE Comments: PATIENT NOT FASTINGPERFORMED BY: [facility] [id number] (55039) ALT (SGPT) 19 [iU]/L (Normal) Range: 0-32 [...] 8-27 Glucose 102 mg/dL (Abnormal) Range: 65-99 80-Qnj-371830:06 CBC W/AUTO DIFF WBC (01409) Comments: PATIENT NOT FASTINGPERFORMED BY: [facility] Eijdzt7179 [facility] [id number] Immature Grans (Abs) 0.0 {x10E3/uL} (Normal) Range: [...] (Normal) Range: 3.4-10.8 :56 Free T3 Comments: [facility] [address] [place], [address] FREE T3 2.7 pg/mL (Normal) Range: 2.18-3.98 :56 Lipid Profile Comments: [facility] [address] [place], [address] VLDL 34 mg/dL (Normal) Range: [...] mg/dL High Risk :56 Liver Profile Comments: [facility] [address] [place], [address] ; ov 03/20 D BILI 0.12 mg/dL (Normal) Range: 0.00-0.30 T BILI 0.50 mg/dL (Normal) Range: 0.20-1.00 ALT 24 U/L (Normal) Range: 13-56 ALK P 67 U/L (Normal) Range: 45-117 AST 19 U/L (Normal) Range: 15-37 GLOB 3.7 g/dL (Normal) Range: 2.2-4.2 ALB 3.8 g/dL (Normal) Range: 3.2-5.0 T PROT 7.5 g/dL (Normal) Range: 6.4-8.2 :56 T4 Free Direct Comments: [facility] [address] [place], [place], [address] T4 FREE DIRECT 0.97 ng/dL (Normal) Range: 0.76-1.46 76-Ncy-44283:56 Thyroid Stim Hormone (TSH) Comments: [facility] [address] [place], [place], [address] TSH 3.42 {uIU/mL} (Normal) Range: 0.358-3.74 4-Hep-985583:52 GGTP 30 U/L (Normal) Comments: [facility] [address] [place], [place], [address] Range: 5-55 6-Erb-018788:52 Liver Profile Comments: [facility] [address] [place], [place], [address] D BILI 0.15 mg/dL (Normal) Range: 0.00-0.30 T BILI 1.10 mg/dL (Abnormal) Range: 0.20-1.00 ALT 31 U/L (Normal) Range: 12-78 ALK P 61 U/L (Normal) Range: 45-117 AST 21 U/L (Normal) Range: 15-37 GLOB 3.8 g/dL (Normal) Range: 2.2-4.2 ALB 3.8 g/dL (Normal) Range: 3.4-5.0 Comments: Please note revised Albumin AND Globulin reference rangeeffective 2017. T PROT 7.6 g/dL (Normal) Range: 6.4-8.2 4-Dik-623000:36 Bilirubin, Direct Comments: LIVER AND GGTP FOR [facility] FOR [facility] [address] [place], [address] D BILI 0.14 mg/dL (Normal) Range: 0.00-0.30 :36 CBC W/Diff, Automated Comments: LIVER AND GGTP FOR [facility] [address] [place], [address] Absolute Lymph 1.45 {X10_3/ul} (Normal) [...] 4.2-5.4 WBC 6.4 K/mm3 (Normal) Range: 4.4-11.0 0-Rjn-032112:36 Comprehensive Metabolic Profil Comments: LIVER AND GGTP FOR [facility] [address] [place], [address] GAP 9 (Normal) Range: 5-15 [...] 7-18 GLU 91 mg/dL (Normal) Range: 70-110 7-Prh-810634:36 GGTP 22 U/L (Normal) Comments: LIVER AND GGTP FOR [facility] [address] [place], [address] Range: 5-55 2-Cir-721309:36 Lipid Profile Comments: LIVER AND GGTP FOR [facility] [address] [place], [address] VLDL 56 mg/dL (Abnormal) Range: [...] Ratio,Random UR Comments: LIVER AND GGTP FOR [facility] [address] [place], [address] MALB:CREAT 38.1 {mg/g_CRE} (Abnormal) MICROALBUMIN,UR 43.8 mg/L (Normal) UR CREAT 115.00 mg/dL (Normal) 9-Edo-038479:36 Thyroid Stim Hormone (TSH) Comments: LIVER AND GGTP FOR [facility] [address] [place], [address] TSH 4.13 {uIU/mL} (Abnormal) Range: 0.358-3.74 :36 Urinalysis, Complete Comments: LIVER AND GGTP FOR [facility] was Urine Obtained? [facility] [address] [place], [address] HYALINE CAST 0-5 SEEN {/lpf} [...] BIOPSY (CHOOSE SITE) See Note (Normal) Comments: [facility] [address] [place], [place], [address] 0:00 Comments: Patient: NEISHA TOBAR : 1950 (66/F) Acct Num: [id number] Phys: MoralesSteve durant Unit Num: [id number] Loc: LABSPEC Specimen: [id number] Received: 02/11/16 - 0754 Spec Type: COLON BX TISSUES TISSUES: GROSS DESCRIPTION Received is one container labeled with the patient name and designated biopsy polyp right colon. The specimen consists of multiple irre gular fragments of light ramirez soft tissue that in aggregate measure 0.2 x 0.1 x 0.1 cm. The specimen is totally submitted in one cassette. / AM: 02/10/16 TC:5 CPT:57107 HEADER OPERATION: Colon oscopy with biopsy PRE-OP DIAGNOSIS: High-risk screen/polyp TISSUE SUBMITTED: Biopsy, polyp, right colon - rule out adenoma MICROSCOPIC DESCRIPTION Slides are reviewed. MICROSCOPIC DIAGNOS IS Right colon polyp, biopsy: Hyperplastic polyp. AM:crow 02/11/16 Signed Samuel Acevedo 02/11/16 <signature on file> C difficile Toxins A+B, Negative (Normal) Comments: PATIENT NOT FASTINGPERFORMED BY: [facility] [address] [place] [id number] 3:19 EIA Cryptosporidium EIA Negative (Normal) Comments: PATIENT NOT FASTINGPERFORMED BY: [facility]6370 [facility] [id number] 3:19 :19 Giardia, EIA, Ova/Parasite Comments: PATIENT NOT FASTINGPERFORMED BY: [facility]6370 [facility] [id number] Giardia lamblia Ag, Negative (Normal) EIA Result 1 NOCP (Normal) Comments: No ova, cysts, or parasites seen. Ova + Parasite Exam Final report Comments: These results were obtained using wet preparation(s) and trichromestained smear. This test does not include testing for Cryptosporidiumparvum, Cyclospora, or Microsporidia. (Normal) : Occult Blood, Fecal, Negative (Normal) Comments: PATIENT NOT FASTINGPERFORMED BY: [facility]6370 [facility] [id number] 19 IA :19 Stool Culture Comments: PATIENT NOT FASTINGPERFORMED BY: [address] [id number] Information: SRC:ST STOOL E coli Shiga Toxin EIA Negative (Normal) Result 1 NCI (Normal) Comments: No Campylobacter species isolated. Campylobacter Culture Final report (Normal) Result 1 NSS (Normal) Comments: No Salmonella or Shigella recovered. Salmonella/Shigella Screen Final report (Normal) :19 White Blood Cells (WBC), Comments: PATIENT NOT FASTINGPERFORMED BY: [place] 8021070 [facility] [id number] Stool Result 1 NWBC (Normal) Comments: No white blood cells seen. White Blood Cells (WBC), Final report (Normal) Stool :54 CBC W/AUTO DIFF WBC Comments: PATIENT NOT FASTINGPERFORMED BY: [address] [id number] Information: [id number] (74612) Immature Grans (Abs) 0.0 {x10E3/uL} (Normal) Range: [...] PANEL, COMPREHENSIVE Comments: PATIENT NOT FASTINGPERFORMED BY: [facility] CenterFciiol1786 [facility] [id number] (98522) ALT (SGPT) 19 [iU]/L (Normal) Range: 0-32 [...] 99 mg/dL (Normal) Range: 65-99 :54 TSH (35155) Comments: PATIENT NOT FASTINGPERFORMED BY: [facility] Italty3529 [facility] [id number] TSH 2.210 {uIU/mL} (Normal) Range: 0.450-4.500 :05 Urinalysis, Office (77718) UA - LEUKOCYTE ESTERASE Negative (Normal) UA [...] CHOL 310 mg/dL (Abnormal) Comments: <200 mg/dL Vskqazdul083-755 mg/dL Borderline>240 mg/dL High Risk TRIG 185 [...] (Normal) UCLAR Clear (Normal) UCOL Yellow (Normal) 70-Ojc-730743:26 HgA1C , Office (47485) HgA1C , Office 5.7 % (Normal) Range: [...] CHOL 286 mg/dL (Abnormal) Comments: <200 mg/dL Pyhoccxhz371-988 mg/dL Borderline>240 mg/dL High Risk :14 MIACRE [...] (Normal) UCLAR Clear (Normal) UCOL Yellow (Normal) 3-Knu-600581:43 BILAT SCRN DIGITAL & CAD Radiology Report [...] Cutler M.D.January 23, 2013 at 12:21:32 PM [id number] Signed GP/GP If you are the referring physician and would like to consult with theradiologist who provided this interpretation, please contact Letty Mukherjee at [phone]. If this radiologist is unavailable, youwill be directed to another radiologist to as sist. If you are a patient with a question regarding this report, pleasecontactyour referring physician directly. Professional Interpretation Provided By: [employer], Phone ,Fax These documents contain legally protected [...] on 01/24/131712 Sign by: Kvng Cutler MD 09-Fpt-03824:57 ABDOMEN/PELVIS WITH CONTRAST Radiology Report See Note [...] narrowing at the L4, L5, and L5, F4uoaktl. IMPRESSION:Sigmoid diverticulosis. Signed:Kvng Cutler M.D.September 01, 2012 at 1:13:05 PM [id number] [phone] Signed GP/GP If you are the referring physician and would like to consult with theradiologist who provided this interpretation, please contact Letty Mukherjee at [phone]. If this radiologist is unavailable, youwill be directed to another radiologist to assist. If you are a patient with a question regarding this report, pleasecontactyour referring physician directly . Professional Interpretation Provided By: [employer], Phone , These documents contain legally protected [...] 09/01/12 1323 Sign by: Kvng Cutler MD 98-Xeh-323082:53 CRE GFRAA 109 mL/min (Normal) GFR 90 mL/min (Normal) CREAT 0.7 mg/dL (Normal) Range: 0.6-1.0 13-Mfq-319193:41 KNEE,4 OR MORE VIEWS Radiology Report See [...] regarding t his report, please call our [id number] line @ Dictated on 01/31/12 1436 by Alec MCKAY,RanulforiJemimaranscribed on 02/01/12 1327 by ITS IMPORTSign by Alec MCKAY,Kvng on 02/01/12 13 28 Sign by: Alec MCKAY,Kvng 1-Bwi-281787:36 CULTURE, URINE URINE CULTURE See Note {CFU/mL} (Normal) Comments: COLONY COUNT 25,000-50,000 ORGANISM 1: MIXED GRAM POSITIVE ORGANISMS 26-Apr-20119:17 Urinalysis, Office (23560) UA - BILIRUBIN Negative (Normal) UA - [...] :34 TSH 3.22 {uIU/mL} (Normal) Range: 0.358-3.74 90-Xhi-762829:23 URINE KVNG CULTURE-IDENTIFICATN Comments: PATIENT NOT FASTINGPERFORMED BY: [facility] [id number] [place] [id number] Information: [id number] ([id number]) Antimicrobial MIHEAD (Normal) Comments: S = Susceptible; [...] primarily for treating urinary tract infections. (CLSI, Q440-B08,2009) Result 1 Klebsiella pneumoniae Comments: 3,000 Colonies/mL . (Normal) Urine Final report (Normal) Culture,Comprehensive 60-Noh-99178:52 Urinalysis, Office (79679) UA - BILIRUBIN Negative (Normal) UA - BLOOD Negative (Normal) UA - GLUCOSE Negative (Normal) UA - KETONES Negative mg/dL (Normal) UA - LEUKOCYTE ESTERASE Small (Normal) UA - NITRITE Negative (Normal) UA - PH 5.0 (Normal) UA - PROTEIN Negative mg/dL (Normal) UA - SPECIFIC GRAVITY 1.015 (Normal) URINE UROBILINGN HE TIMED Normal mg/dL (Normal) 5-Fif-991217:44 TRANSVAGINAL NON- Radiology Report See Note (Normal) Comments: Exam Number: [id number] LINICAL:This is a 60-year-old female patient with [...] were not visualized. Reported By: KVNG CUTLER 4-Cps-593377:24 PELVIC (NON ) Radiology Report See Note (Normal) Comments: Exam Number: [id number] LINICAL:This is a 60-year-old female patient with [...] were not visualized. Reported By: KVNG CUTLER 88-Fwb-203442:53 URINE KVNG CULTURE-HE COL Comments: PATIENT NOT FASTINGPERFORMED BY: [facility] [facility] [id number] Information: SRC:URT [id number] COUNT (08869) Result 3 BETAGB (Normal) Comments: Beta hemolytic [...] primarily for treating urinary tract infections. (CLSI, E266-O45,2009) Result 2 Klebsiella pneumoniae Comments: 100 Colonies/mL . (Normal) Urine Final report (Normal) Culture,[facility] chucho 37-Odr-94664:50 Urinalysis, Office (49236) UA - LEUKOCYTE ESTERASE Trace (Normal) UA - NITRITE Negative (Normal) URINE UROBILINGN HE TIMED Normal mg/dL (Normal) UA - PROTEIN Negative mg/dL (Normal) UA - PH 5.0 (Normal) UA - BLOOD Non Hemolyzed Trace (Normal) UA - SPECIFIC GRAVITY 1.010 (Normal) UA - KETONES Negative mg/dL (Normal) UA - BILIRUBIN Negative (Normal) UA - GLUCOSE Negative (Normal) 9-Tyu-445593:00 Urinalysis, Office (46221) UA - LEUKOCYTE ESTERASE Trace (Normal) UA [...] Comments: GLU,2HPPG 75gm GLUC PPG GLUP from 0902:M15115P. :34 CBC, [employer] 34.4 g/dL (Normal) [...] CHOL 283 mg/dL (Abnormal) Comments: <200 mg/dL Xwsacoent525-921 mg/dL Borderline>240 mg/dL High Risk HDL 53 [...] Report See Note (Normal) Comments: Exam Number: [id number] CLINICAL:This is a 60-year-old female patient with [...] of the thyroid. Reported By: KVNG CUTLER 84-Ile-78029:10 COLON BX P-COLBX (Normal) Comments: OPERATIONColonoscopy with [...] cassette. / LONG:chris 03/19/10TC:4REPORT SIGNED: SHREE WEINSTEIN 03/20/1010-Feb-201085-Zem-149700:08 KNEE,4 OR MORE VIEWS ([place]) Radiology Report See Note (Normal) Comments: Exam Number: [id number] CLINICAL:Pain X-RAY EXAMINATION LEFT KNEE TECHNIQUE:Four views of the knee. COMPARISON:None. FINDINGS:Normal visualized distal femur. Normal visualized proximal tibia. Normal visu alized proximal fibula. There is minimal narrowing of the medial femorotibial compartment.Normal lateral femorotibial compartment. Normal patellofemoral articulation. There is no demonstrated jointeffu tamia. There is no demonstrated soft tissue swelling. IMPRESSION:Chronic degenerative changes, as discussed above. Reported By: SURINDER WOODRUFF 06-Fxs-133183:00 SPINE, LUMBAR W/W/O CONTRAST Radiology Report See Note (Normal) Comments: Exam Number: [id number] CLINICAL:59-year-old female with displaced lumbar disk low [...] Reported By: LANDY HIGHTOWER M.D. 28-Aug-20097:03 TRAN-D 131001 TRAN-DIRECT SeeNote (Normal) Comments: Result: Negative [facility]formed At: [facility] [address] [place], [place] [id number] At: [facility] [address] [place], [place] [id number] :03 ANTI-CCP 077303 6 {units} (Normal) Range: 0-19 Comments: Negative [...] Report See Note (Normal) Comments: Exam Number: [id number] BILATERAL SCREENING MAMMOGRAM COMPARISONComparison is made to [...] The mammogramswere also examined with computer-aided detection software(Blottr.). Reported By: CHUCK PEREZ M.D. 65-Xhy-204111:46 SHOULDER,MIN 2 VIEWS Radiology Report See Note (Normal) Comments: Exam Number: [id number] RIGHT SHOULDER HISTORYShoulder pain. TECHNIQUEFour views of [...] normal variant. Reported By: LUIS JORGE M.D. 98-Mqx-814618:00 LQD PAP [id number] Comments: CYTOLOGY INFORMATION:- CLINICAL INFORMATION: POSTMENOPAUSAL- DATE LMP/MENOPAUSE: - COLLECTION VIAL: Thin Prep Vial- MOBILE PATROL OFFICER SOURCE: CERVICAL/ENDOCERVICAL- COLLECTION TECHNIQUE: BRUSH/SPATULA ADEQ Comment (Normal) Comments: Satisfactory for evaluation. Endocervical and/or squamous metaplasticcells (endocervical component) are present. COMM . (Normal) DIAGN Comment (Normal) Comments: NEGATIVE FOR INTRAEPITHELIAL LESION AND MALIGNANCY. HPV RFLX Comment (Normal) Comments: The HPV DNA reflex criteria were not met with this specimenresult therefore, no HPV testing was performed. .Performed At: [facility] [address] [place], [place] [id number] PAPSMR Comment (Normal) Comments: The Pap smear is a screening test designed to aid in thedetection of pre-malignant and malignant conditions of theuterine cervix. It is not a diagnostic procedure andshould not be used as the sole mean s of detecting cervicalcancer. Both false-positive and false-negative reports dooccur. . 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) Comments: Cristal Pisano Manager Ob Plan of Care Name Dates Details Instructions [...] Diagnostic Tests Indication: Headache Headache : Reviewed Lpn Per Diem Letter Indication: Headache Hypertensive heart disease without [...] Indication: Epigastric pain Epigastric pain : Reviewed Lpn Per Diem Letter Indication: Epigastric pain Epigastric pain : [...] GERD (gastroesophageal reflux disease) Planned Observations ALDOSTERONE (80305)Indication: Hypertensive heart disease without congestive heart failure On: :28 Request RENIN (23561)Indication: Hypertensive heart disease without congestive heart failure On: :28 Request METANEPHRINES - URINE (34017)Indication: Hypertensive heart disease without congestive heart failure On: : Request CATECHOLAMINES TOTAL, URINE (95713)Indication: Hypertensive heart disease without congestive heart failure On: : Request URINE VMA (69177)Indication: Hypertensive heart disease without congestive heart failure On: : Request Metabolic Panel, Basic (09853)Indication: Therapeutic drug monitoring On: 96-Lfk-91940:13 Request Comments: give to jud to review HEPATIC FUNCTION PANEL (82057)Indication: Common bile duct dilation On: 86-Ifo-884993:18 Request HEPATIC FUNCTION PANEL (91065)Indication: Epigastric pain On: 00-Pev-781715:51 Request LIPID PANEL (03958)Indication: Hypercholesteremia On: :25 Request TSH (87333)Indication: Abnormal TSH On: :21 Request T4, FREE (THYROXINE) (74769)Indication: Abnormal TSH On: :21 Request T3, FREE (TRIDOTHYRONINE) (01510)Indication: Abnormal TSH On: :21 Request TSH (04355)Indication: Hypercholesteremia On: :14 Request URINALYSIS, W/ MICRO (61907)Indication: Hypertensive heart disease without congestive heart failure On: :14 Request MICROALBUMIN: CREATININE RATIO (67937) AND (38278)Indication: Hypertensive heart disease without congestive heart failure On: :14 Request METABOLIC PANEL, COMPREHENSIVE (34872)Indication: Hypertensive heart disease without congestive heart failure On: :14 Request LIPID PANEL (39906)Indication: Hypercholesteremia On: :14 Request CBC W/AUTO DIFF WBC (85733)Indication: Hypertensive heart disease without congestive heart failure On: 96-Ccy-815496:14 Request Cryptosporidium Sp Ag, Direct Fluorescent Ab (24393)Indication: Diarrhea On: :44 Request GIARDIA LAMBLIA ANTIBODY (70066)Indication: Diarrhea On: :43 Request C-DIFFICILE, STOOL (12682)Indication: Diarrhea On: :43 Request OVA & PARASITE DIR SMEAR (37738)Indication: Diarrhea On: :43 Request OCCULT BLOOD FECES SCREEN (60210)Indication: Diarrhea On: :43 Request LEUKOCYTE COUNT, FECAL (76260)Indication: Diarrhea On: :43 Request KVNG CULTURE-STOOL (06749)Indication: Diarrhea On: :43 Request FECAL OCCULT HGB ASSAY- tubes sent home (45316)Indication: Encounter for Medicare annual wellness exam On: 57-Qzv-96556:28 Request TSH (99628)Indication: Hypertensive heart disease without congestive heart failure On: 63-Afy-663131:27 Request URINALYSIS, W/ MICRO (47428)Indication: Hypertensive heart disease without congestive heart failure On: 78-Jbc-417537:27 Request MICROALBUMIN: CREATININE RATIO (22439) AND (75360)Indication: Hypertensive heart disease without congestive heart failure On: 16-Juv-113310:27 Request METABOLIC PANEL, COMPREHENSIVE (07708)Indication: Hypertensive heart disease without congestive heart failure On: 36-Ksc-633042:27 Request CBC WITH MANUAL DIFF (06871)Indication: Hypertensive heart disease without congestive heart failure On: 11-Oqx-477564:27 Request LIPID PANEL (86817)Indication: Hypercholesteremia On: 05-Feb-2014 Request URINE KVNG CULTURE-HE COL COUNT (56396)Indication: Urinary frequency On: :17 Request Magnesium (09802)Indication: Hypopotassemia On: 48-Won-634185:50 Request Metabolic Panel, Basic (48634)Indication: Hypopotassemia On: 91-Xei-126216:49 Request TSH (20872)Indication: Hypercholesteremia On: 96-Jwu-48851:09 Request URINALYSIS, W/ MICRO (82728)Indication: Hypertensive heart disease without congestive heart failure On: :09 Request MICROALBUMIN: CREATININE RATIO (71446) AND (65142)Indication: Hypertensive heart disease without congestive heart failure On: :09 Request METABOLIC PANEL, COMPREHENSIVE (01699)Indication: Hypertensive heart disease without congestive heart failure On: :09 Request LIPID PANEL (53683)Indication: Hypercholesteremia On: :09 Request CBC WITH MANUAL DIFF (14064)Indication: Hypertensive heart disease without congestive heart failure On: :09 Request URINE KVNG CULTURE-HE COL COUNT (72311)Indication: Dysuria On: 9-Fcc-239850:00 Request Glucose, PP/2 Hour (44570)Indication: Other specified abnormal findings of blood chemistry On: :21 Request HEPATIC FUNCTION PANEL (99438)Indication: Hypercholesteremia On: :57 Request LIPID PANEL (23978)Indication: Hypercholesteremia On: :57 Request Comments: DO IN 3 MONTHS Glucose, PP/2 Hour (05862)Indication: Other specified abnormal findings of blood chemistry On: :57 Request TRAN (ANTINUCLEAR ANTIBODY) (89053)Indication: Pain in unspecified joint On: :29 Request C-REACTIVE PROTEIN (76387)Indication: Pain in unspecified joint On: :29 Request CBC WITH MANUAL DIFF (76036)Indication: Pain in unspecified joint On: :29 Request CCP ANTIBODY (76323)Indication: Pain in unspecified joint On: :29 Request METABOLIC PANEL, COMPREHENSIVE (44421)Indication: Pain in unspecified joint On: :29 Request RHEUMATOID FACTOR-QUANT (94954)Indication: Pain in unspecified joint On: :29 Request SED RATE ERYTHROCYTE (99088)Indication: Pain in unspecified joint On: :29 Request TSH (30244)Indication: Pain in unspecified joint On: :29 Request FECAL OCCULT- Tubes sent home (55878)Indication: Benign essential hypertension On: :27 Request TSH (09439)Indication: Benign essential hypertension On: :09 Request URINALYSIS W/O MICRO (45785)Indication: Benign essential hypertension On: :09 Request MICROALBUMIN: CREATININE RATIO (08473) AND (46143)Indication: Benign essential hypertension On: :09 Request METABOLIC PANEL, COMPREHENSIVE (74855)Indication: Benign essential hypertension On: :09 Request LIPID PANEL (31118)Indication: Benign essential hypertension On: :09 Request CBC WITH MANUAL DIFF (14449)Indication: Benign essential hypertension On: : Request HEPATIC FUNCTION PANEL (66600)Indication: Hypercholesteremia On: :56 Request Comments: DO IN 3 MONTHS LIPID PANEL (43945)Indication: Hypercholesteremia On: :56 Request URINALYSIS W/O MICRO (92552)Indication: Hypertension On: :51 Request TSH (29803)Indication: Hypertension On: :51 Request MICROALBUMIN URINE QUANT (39513)Indication: Hypertension On: :51 Request METABOLIC PANEL, COMPREHENSIVE (74173)Indication: Hypertension On: :50 Request LIPID PANEL (51223)Indication: Hypertension On: :50 Request CBC WITH MANUAL DIFF (61028)Indication: Hypertension On: :50 Request Planned Encounters Medical; [...] FLAT PLATE AND On: 21-Jun-2018 Intent ERECT (00230)By: Jud Samaniego CNP X-RAY OF CERVICAL SPINE, TWO VIEWS On: 02-Jun-2018 Intent (13139)By: Jessica Corona DO, DO, Kathleen Radiology - Lumbar SpineBy: Mohamud On: 25-May-2018 Intent Addie ELECTROCARDIOGRAM, COMPLETE (ECG) On: 04-May-2018 Intent (69375)By: Jessica Corona DO Comments: nsr / no acute chg - pvc present and IVCD DO Jessica QYWY-TP-SUXB BEHAVIORAL COUNSELING On: 28-Apr-2018 Intent FOR OBESITY, 15 MINUTES (G0447)By: Jessica Corona DO, DO, Kathleen DEXA SCAN AXIAL SKELETON (00422)By: On: 28-Apr-2018 Intent Jessica Corona DO, DO, Kathleen MRCP (MAGNETIC RESONANCE On: 06-Feb-2018 Intent CHOLANGIOPANCREATOGRAPHY) (S8037)By: Jessica Corona DO, DO, Kathleen ULTRASOUND OF UPPER ABDOMEN On: 27-Jan-2018 Intent (29285)By: Jessica Corona DO Comments: attention size of CBD DO, Jessica SCREENING DIGITAL TOMOSYNTHESIS OF On: 09-Jan-2018 Intent BREAST (41266)By: Addie Odell LPN ELECTROCARDIOGRAM, COMPLETE (ECG) On: 03-Aug-2017 Intent (61671)By: Jessica Corona DO Comments: sinus vinicio no new acute chg DOJessica MAMMOGRAM BREAST BILATERAL SCREENING On: 03-Jul-2015 Intent DIGITAL (46326)By: Jessica Corona DO, DO, Kathleen Radiology - ChestBy: Jud Samaniego CNP On: 26-May-2015 Intent E Aerosol Treatment (45373)By: Danette On: 26-May-2015 Intent Jud SPRINGER Aerosol Treatment (31850)By: Froylan On: 05-May-2015 Intent Sandy KENT Radiology - Lumbar SpineBy: Danette On: 15-Apr-2015 Intent Jud SPRINGER Toradol Injection, 30 mg (J1885)By: On: 11-Apr-2015 Intent Jud Samaniego CNP ADMINISTRATION OF PNEUMOCOCCAL On: 10-Jun-2014 Intent VACCINE (G0009)By: Jessica Corona DO, DO, Kathleen PNEUM VAC ADLT/IMUMNOSPR, SBC/INTRM On: 10-Jun-2014 Intent (76629)By: Jessica Corona DO Comments: lot: [id number]: 03/22/15site/route: L del/IMamt: 0.5mLVIS signed when applicableChelsJULIEN baird DO, Kathleen NQRI-JA-PFYY BEHAVIORAL COUNSELING On: 10-Jun-2014 Intent FOR OBESITY, 15 MINUTES (G0447)By: Jessica Corona DO, DO, Kathleen BILATERAL MAMMOGRAMS (25734)By: On: 04-Jun-2014 Intent Jessica Corona DO, DO, Kathleen EKG (21865)By: Jessica Corona DO On: 04-Feb-2014 Intent Jessica Corona DO Comments: nsr no acute cg Eprescribed prescriptions (G8553)By: On: 16-Nov-2013 Intent Jessica Corona DO, DO, Kathleen gastric emptying studyBy: Chloe SCHROEDER, On: 10-Oct-2013 Intent Jessica Proctor DO FLU VAC, SPLIT, >3 YEARS, INTRAMUSC On: 06-Sep-2013 Intent (20717)By: Addie Odell LPN Comments: Lot:[id number]:6.14Amt:0.5mlRoute:IMSite: L DltdGiven By: LAUREN Fontenot signed ADMINISTRATION OF INFLUENZA VIRUS On: 06-Sep-2013 Intent VACCINE (G0008)By: Addie Odell LPN EKG (47856)By: Jessica Corona DO On: 26-Mar-2013 Intent Jessica Corona DO Comments: nsr no acute ischemic changes/ borderline LVH Eprescribed prescriptions (G8553)By: On: 26-Mar-2013 Intent ManShaye brittonsea Eprescribed prescriptions (G8553)By: On: 23-Feb-2013 Intent ManShaye brittonsea MAMMOGRAM, SCREENING, BOTH BREASTS On: 19-Jan-2013 Intent (07826)By: Jessica Corona DO, DO, Kathleen CT - Abdomen & Pelvis (IV Contrast On: 28-Aug-2012 Intent Needed)By: Jessica Corona DO, DO, Kathleen Eprescribed prescriptions (G8553)By: On: 28-Aug-2012 Intent Addie Odell DONTE DRAIN/INJECT, JOINT/BURSA (05099)By: On: 25-Feb-2012 Intent Jessica Corona DO, DO, Comments: inject 2 cc marcaine 1 cc kenolog Jessica Radiology - Knee - RightBy: Chloe On: 31-Jan-2012 Jessica Mauricio DO, DO, Kathleen Eprescribed prescriptions (G8553)By: On: 25-Oct-2011 Intent Jessica Corona DO, DO, Kathleen TDAP VACCINE >7 IM (26433)By: Chloe On: 02-Jul-2011 Jessica Mauricio DO, DO, Kathleen Comments: 0.5cc given im rt dltd lot [id number] exp 08-11-13 EKG (94271)By: Jessica Corona DO On: 01-Feb-2011 Jessica Lemus DO Comments: nsr no acute changes-- borderline LVH -- but seen on echo best Bio Z (29943)By: Jessica Corona DO On: 01-Feb-2011 Intent Jessica [...] On: 18-Aug-2009 Intent Jessica Proctor DO EKG (00081)By: Jessica Corona DO On: 18-Aug-2009 Intent Jessica Corona DO Comments: nsr no acute changes Pulse Oximetry (10144)By: Chloe SCHROEDER On: 05-Mar-2009 Intent Jessica Proctor DO Comments: 93% RA Aerosol Treatment (87066)By: Chloe On: 05-Mar-2009 Jessica Mauricio DO, DO, Kathleen Comments: better air exchange no wheeze Solu- Medrol Injection, 125mg On: 05-Mar-2009 Intent (J2930)By: Jessica Corona DO Comments: injection given in left glutues alvarado. Pt tolerated well. LTRF881/2011 Jessica SCHROEDER EKG (01208)By: Jessica Corona DO On: 25-Feb-2008 Intent Jessica [...] failure Hypercholesteremia : DISCONTINUED - LIPID PANEL (63781) Indication: Hypercholesteremia Hypercholesteremia : DISCONTINUED - TSH (99494) Indication: Hypercholesteremia Hypertensive heart disease without congestive heart failure : DISCONTINUED - URINALYSIS, W/ MICRO (65953) Indication: Hypertensive heart disease without congestive heart failure Hypertensive heart disease without congestive heart failure : DISCONTINUED - MICROALBUMIN: CREATININE RATIO (43499) AND (08996) Indication: Hypertensive heart disease without congestive heart failure Hypertensive heart disease without congestive heart failure : DISCONTINUED - METABOLIC PANEL, COMPREHENSIVE (58008) Indication: Hypertensive heart disease without congestive heart failure Hypertensive heart disease without congestive heart failure : DISCONTINUED - CBC WITH MANUAL DIFF (20807) Indication: Hypertensive heart disease without congestive heart [...] are helping. Going on a trip next week-[facility] bus trip.Encounter Diagnosis: Non-smoker, BMI [...] patient does not have durable power of patent prosecution attorney or living will. The patient has [...] patient does not have durable power of patent prosecution attorney or living will. The patient has [...] the R kneee-- achy pain ??swolllen - deephti End: 31-Jan-2012 10:59 ts to wt bear [...] [facility] End: 06-Sep-2006 14:06 [facility]ayers [facility]/Supplement Francy Tobar; shubham guarantor
--- OUTSIDE RECORDS SUMMARY | 2018-12-17 17:02 | XMS RPT_ITS | Continuity of Care Document ---
:1950 Author Organization [facility] Address [address] [place] [address] Phone Care Team Providers Name Role Phone Jessica Corona DO Unavailable Marcy Allen Unavailable Huber MCKAY, Dr. Benitez Unavailable [facility], [facility] Unavailable DONTE Odell Unavailable Unavailable Emily Polk Unavailable Unavailable Unavailable Unavailable Problems Name Dates Details Adult hypothyroidism (E03.9, 244.9) Comments: borderline -- pt chooses to follow Status: Active Annual Medicare Phyiscal WITHOUT abnormal findings (Renamed from Encounter for general adult medical examination without abnormal findings) (Z00.00, V70.9) Status: Active Atypical chest pain (R07.89, 786.59) Status: Active Bacterial sinusitis (J32.9, 473.9) Status: [...] Active Chronic scapular pain (M89.8X1, 733.90) Comments: related to gas or bowel movement so i feel its referred pain from GI or even cervical?-- assoc with eating mrcp neg normal lft-- h/o gb out Status: Active Chronic vaginitis (N76.1, 616.10) Status: Active Colon cancer screening (Renamed from Encounter for screening for malignant neoplasm of colon) (Z12.11, V76.51) Comments: scope 2016- [facility] 2103 Status: Active Common bile duct dilation [...] neoplasm of breast) (Z12.31, V76.12) Comments: mamogram 2016 Status: Active Epigastric pain (R10.13, 789.06) Status: [...] (M54.5, 724.2) Status: Active Nausea (R11.0, 787.02) Comments: ok with dr Murillo dx and recommendation she will start the carafate again Status: Active Nausea (R11.0, 787.02) Comments: chronic [...] Dates Details Atenolol 50 MG Oral Tablet 1.5 Tablet bid for 90 days Quantity: 135 {Tablet} Refills: 3 Ordered:25-Sep-2018 Mayte Corona DO, DO, Kathleen Start : 25-Sep-2018 Active CloNIDine HCl 0.1 MG Oral Tablet [...] 0 days Quantity: 30 {Tablet} Refills: 3 Ordered:25-Sep-2018 aMyte Corona DO, DO, Kathleen Start : 25-Sep-2018 Active Norvasc 5 MG Oral Tablet 1 (one) Tablet daily for 0 days Quantity: 30 {Tablet} Refills: 3 Ordered:25-Sep-2018 Mayte Corona DO, DO, Kathleen Start : 25-Sep-2018 Active Prevacid 30 MG Oral Capsule Delayed Release [address] daily for 90 days Quantity: 90 {Capsule} Refills: 3 Ordered:26-Jul-2018 Mayte Corona DO, DO, Kathleen Start : 26-Jul-2018 Active PROAIR HFA, 108 (90 Base)MCG/ACT (Inhalation Aerosol Solution) 2 (two) Puff Puff tid for 0 days Quantity: 1 {Inhaler} Refills: 0 Ordered:09-Jun-2015 Danette SPRINGER Mildred Start : 09-Jun-2015 Active Promethazine HCl 25 [...] Start : 27-Jul-2013 End : 16-Nov-2013 Inactive Augmentin 875-125 MG Oral Tablet 1 (one) Tablet bid for 7 days Quantity: 14 {Tablet} Refills: 0 Ordered:11-Sep-2018 Mayte Corona DO, DO, Kathleen Start : 11-Sep-2018 End : 18-Sep-2018 Inactive BACTRIM DS, 800-160MG (Oral Tablet) 1 [...] 120 {Tablet} Refills: 3 Ordered:23-Sep-2017 Mayte Corona DO Jessica Start : 03-Aug-2017 End : 23-Sep-2017 Inactive Comments:Medication taken as needed. Carisoprodol 250 MG Oral Tablet 1 (one) Tablet PO QHS for 3 days Quantity: 3 {Tablet} Refills: 0 Ordered:25-May-2018 Addie Mallory Start : 25-May-2018 End : 28-May-2018 Inactive Comments:SOYHNNvbneeat-169Yfjhyrcz-123Xyacfpggc-000OD Quin-144GJ-Wbofnghd of Right Side (M54.31)#Three CELEBREX, 200MG (Oral [...] days Quantity: 30 {Tablet} Refills: 0 Ordered:20-Apr-2011 Ole DONTENuria Start : 25-Mar-2011 End : 20-Apr-2011 Inactive [...] days Quantity: 10 {Tablet} Refills: 0 Ordered:05-May-2015 Phillyfreddyshubham SPRINGERJud Start : 05-May-2015 End : 15-May-2015 Inactive Macrobid 100 MG Oral Capsule 1 (one) Capsule bid for 3 days Quantity: 6 {Capsule} Refills: 0 Ordered:21-Jun-2018 Danette RACHEALJud Start : 21-Jun-2018 End : 24-Jun-2018 Inactive [...] tid for 2 days Refills: 0 Ordered:03-Aug-2010 Danette RACHEALJud Start : 28-Jul-2010 End : 30-Jul-2010 Inactive [...] Comments: improvign for cough and sx at [facility] -- try cont albluterol, do muciinex and [...] Total Completed Comments: 10/06 Date Value Details 24-Sep-2018 Renal Artery Duplex Result: Comments: See Note; NOTES: [facility] Cardiovascular Services [address] [place] [address] Renal Artery Duplex Ultrasound 09/22/18 0802 MR#: [id number] Acct: [id number] Name: NEISHA TOBAR Rep #: [id number] : 1950 68 From: Ciro Maravilla MD Attending Dr: Jessica Corona DO Status: REG CLI Ordering Dr: Jessica Corona DO Date: 09/22/18 Location: [facility] Sex: F C Admitt ed: Reason For Study: HTN without CHF Right Renal Artery Left Renal Artery Right renal artery ostium 100/23 Left renal artery ostium 90.7/17.7 RSV/EDV. PSV/EDV. Right renal artery proximal Left rita al artery proximal PSV/EDV 82.2/18.9 PSV/EDV. 87/19.1 . Right renal artery mid 85.5/12.3 Left renal artery mid 71.5/14 PSV/EDV. PSV/EDV . Right renal artery distal 91.9/19 Left renal artery distal 80.4/ 18.5 PSV/EDV. PSV/EDV. Right RAR 0.84. Left RAR 0.76. Right Renal Parenchyma Left Renal Parenchyma Upper Pole Medula 31.9/7.75 Left upper pole medulla 33.3/9.47 PSV/EDV. PSV/EDV . Right upper pole medul la EDR 0.24 . Left upper pole medulla EDR 0.28 . Right upper pole medulla R.I. Left upper pole medulla R.I. 0.72 . 0.76 . UP Cortex 19.6/5.19 PSV/EDV. Upper Avila Cortx 34.7/10 PSV/EDV. Left upper pole co rtex EDR 0.26 . Right upper pole cortex EDR 0.29 . Left upper pole cortex R.I. 0.73 . Right upper pole cortex R.I. 0.71 . Left lower Pole medulla 26.3/6.42 Right lower Pole medulla 40/9.78 PSV/EDV . PSV /EDV . Left lower pole medulla EDR 0.24 . Right lower pole medulla EDR 0.24 . Left lower pole medulla R.I. 0.76 . Right lower pole medulla R.I. Lower Pole Cortx 18.9/4.58 PSV/EDV. 0.76 . Left lower pole cortex EDR 0.24 . Lower Pole Cortex 20.5/7.03 Left lower pole cortex R.I. 0.76 . PSV/EDV. Left Renal Hilar Right lower pole cortex EDR 0.34 . LT Hilar avg 51.3/12.2 PSV/EDV . Right lower pole cortex R. I. 0.66 . Left hilar acceleration time 59 Right Renal Hilar m/sec. Right Hilar avg 55.2/9.58 PSV/EDV. Left Renal Dimensions Right hilar acceleration time 51 Left kidney size 10.5 cm . m/sec. Left cortic al dimension 1.66 cm . Right Renal Dimensions Right kidney size 9.79 cm . Right cortical dimension 1.46 cm . Aorta Proximal abdominal aorta 1.59 x 1.76 cm . Proximal abdominal aorta peak systolic veloc ity is 111 cm/sec . Distal abdominal aorta 1.28 x 1.39 cm . Distal abdominal aorta peak systolic velocity is 119 cm/sec . Interpretation Summary Dimensions of the intra-abdominal aorta appear normal, without evidence of aneurysmal dilatation. Renal artery velocities are bilaterally normal. Acceleration times are normal bilaterally. There is no evidence of hemodynamically significant renal artery luh nosis on either side. Renovascular resistance appears to be bilaterally elevated . The right cortical dimension is normal. The left cortical dimension is increased. Kidneys appear normal in size bilater ally. Ordering Physician: Jessica Corona Referring Physician: Jessica Corona M.D. Performe d By: Mary Tena RVT and Student 09/24/18 1013 Date Ciro Maravilla MD CC: Gaviota Corona DO Date Dictated: 09/22/18 0802 Date Transcribed: 09/24/18 1013 Bull Riveter: Signed 18-Sep-2018 Kidney and Bladder Result: Comments: See Note; NOTES: [facility] Imaging Services [address] [place] [address] Kidney and Bladder MR#: [id number] Acct: [id number] Name: NEISHA TOBAR Rep #: [id number] : 1950 F 68 From: Jorge Holland MD PCP: Jessica Corona DO Status: REG CLI Study: Kidney and Bladder Date of Exam: 09/18/18 Exam# [id number] Ordering Dr: Jessica Corona DO STUDY: RENAL UL TRASOUND - COMPLETE REASON FOR EXAM: Female, 68 years old. Blood pressure. TECHNIQUE: Ultrasound evaluation of the kidneys was performed with real-time and static cancino-scale imaging. COMPARISON: None . FINDINGS: RIGHT KIDNEY: Normal location of the right kidney, which is normal in size. The right kidney measures 10.2 cm. There is a normal cortex of the right kid christiana. The renal cortex measures 1.1 cm. There is no right renal mass or cyst. There are no right renal calculi. There is no right hydronephrosis. DISTAL RIGHT URETER: There is non-visualization of the d istal right ureter. There is no demonstrated right ureterovesical junction calculus. There is no demonstrated right ureteral jet. LEFT KIDNEY: Normal location of the left kidney, which is normal in siz e. The left kidney measures 11.0 cm. There is a normal cortex of the left kidney. The renal cortex measures 1.5 cm. There are parapelvic cysts measuring up to 1.2 cm. There are no left renal calculi. Th ere is no left hydronephrosis. DISTAL LEFT URETER: There is non-visualization of the distal left ureter. There is no demonstrated left ureterovesical junction calculus. There is no demonstrated left ur eteral jet. BLADDER: The distended urinary bladder has a volume of 69 ml. The empty urinary bladder has a volume of 0 ml. There is a normal wall thickness of the distended urinary bladder. There is no demonstrated mass within the urinary bladder. There are no demonstrated bladder calculi. US/Kidney and Bladder IMPRESSION: No hydronephrosis. Par apelvic cysts on the left. Electronically Signed: Jorge Holland MD at 19:57 EDT , Service support , CC: Jessica Corona DO Bull Riveter: Signed 12-Sep-2018 12 Lead Electrocardiogram Result: Comments: See Note; NOTES: [facility] Cardiovascular Services [address] [place] [address] 12 Lead EKG 09/09/18 0949 MR#: [id number] Acct: [id number] Name: NEISHA TOBAR Bisi #: [id number] : 1950 68 From: Ian Gudino MD [...] Abnormal ECG Confirmed by TERESE MCKAY, IAN ([id number]), commissioning editor CHARITY VILLEGAS ([id number]) on 09/12/2018 11:06:08 AM Referred By: Devora Corona Confirmed By:AIN GUDINO MD 09/12/18 1106 Date Ian Gudino MD CC: Anel Hunter MD; Jessica Chloe SCHROEDER Signed 09-Sep-2018 Emergency Department Summary Result: Comments: See Note; NOTES: [facility] Medical Records Department [address] [place] [address] Emergency Department Summary 09/09/18 0934 MR#: [id number] Acct: [id number] Name: NEISHA TOBAR Rep #: [id number] : 1950 68 From: Anel Hunter MD [...] Hypertension, improved This note was generated with Triporati dictation software. It may contain incorrect words, spelling, and punctuation that were not noted in rev iew of the chart prior to signing ED Disposition - Plan for ED Patient: Chief Complaint: Hypertension Referrals: Jessica Corona, [Primary Care Provider] - What to do if you have Problems For any increased pain, shortness of breath, bleeding, nausea or vomiting, chest pain, or any unexpected problems, contact your Primary Care Provider. Call [facility] ([phone]) or report to the [facility] Emergency Room. Call 911 if necessary. 09/09/18 4263 <Electronically signed by Anel Hunter MD> Date Anel Hunter MD Cos igner Signature (If Indicated): Date CC: Jessica Corona DO 09-Sep-2018 Discharge Instruction Result: Comments: See Note; NOTES: [facility] Medical Records Department [address] [place] [address] Discharge Instruction 09/09/18 1203 MR#: [id number] Acct: [id number] Name: Lydia TOBAR Rep #: [id number] : 1950 68 From: Anel Hunter MD [...] your Primary Care Provider. Call [facility] ([phone]) or report to the closest Emergency Room. Call 911 if necessary. 09/09/18 1207 < Electronically signed by Anel Hunter MD> Date Anel Hunter MD Cosigner Signature (If Indicated): Date CC: Jessica Corona DO 09-Sep-2018 Brain/Head without Contrast Result: Comments: See Note; NOTES: [facility] Imaging Services [address] [place] [address] Brain/Head without Contrast MR#: [id number] Acct: [id number] Name: NEISHA TOBAR Rep #: [id number] : 1950 F 68 From: Italo Brown DO PCP: Jessica Corona DO Status: REG ER Study: Brain/Head without Contrast Date of Exam: 09/09/18 Exam# [id number] Ordering Dr: Anel Hunter MD ST UDY: CT BRAIN WITHOUT CONTRAST REASON FOR EXAM: [...] CC: Anel Hunter MD; Jessica Corona DO Bull Riveter: Signed 21-Jun-2018 Abd Inc Decub and/or Erect Result: Comments: See Note; NOTES: [facility] Imaging Services [address] [place] [address] Abd Inc Decub and/or Erect MR#: [id number] Acct: [id number] Name: NEISHA TOBAR Rep #: [id number] : 1950 F 68 From: Tapan Gore MD PCP: Jessica Corona DO Status: REG CLI Study: Abd Inc Decub and/or Erect Date of Exam: 06/21/18 Exam# [id number] Ordering Dr: Jud Samaniego Y: X-RAY - [...] , Service support , CC: Jud Samaniego CERTIFIED ORTHOPTIST; Jessica Corona DO Bull Riveter: Signed 02-Jun-2018 Cerv Spine 2 or 3 Views Result: Comments: See Note; NOTES: [facility] Imaging Services [address] [place] [address] Cerv Spine 2 or 3 Views MR#: [id number] Acct: [id number] Name: NEISHA TOBAR Rep #: [id number] : 1950 F 68 From: Jamil Paulson MD PCP: Jessica Corona DO Status: REG CLI Study: Cerv Spine 2 or 3 Views Date of Exam: 06/02/18 Exam# [id number] Ordering Dr: Jessica Corona DO UDY: X-RAY [...] Service support , CC: Jessica Corona DO Bull Riveter: Signed 25-May-2018 L/S Spine Min 4 Views Result: Comments: See Note; NOTES: [facility] Imaging Services [address] [place] [address] L/S Spine Min 4 Views MR#: [id number] Acct: [id number] Name: NEISHA TOBAR Rep #: [id number] : 1950 F 68 From: Mikayla Guerrier MD PCP: Jessica Corona DO Status: REG CLI Study: L/S Spine Min 4 Views Date of Exam: 05/25/18 Exam# [id number] Ordering Dr: Addie Mallory CERTIFIED ORTHOPTIST-C STUDY: X -RAY - LUMBAR SPINE REASON [...] , CC: DEYSI Mallory; Jessica Corona DO Bull Riveter: Signed 09-May-2018 Dexa Bone Density Study Result: Comments: See Note; NOTES: [facility] Imaging Services [address] [place] [address] Dexa Bone Density Study MR#: [id number] Acct: [id number] Name: NEISHA TOBAR Rep #: [id number] : 1950 F 68 From: Kvng Cutler MD PCP: Jessica Corona DO Status: [facility] CLI Study: Dexa Bone Density Study Date of Exam: 05/09/18 Exam# [id number] Ordering Dr: Jessica Corona DO STUDY: DUAL [...] Kvng Cutler MD at 8:25 EDT Tel [phone], Service support , CC: Jessica Corona DO Bull Riveter: Signed 14-Feb-2018 MRCP Abdomen without Contrast Result: Comments: See Note; NOTES: [facility] Imaging Services [address] [place] [address] MRCP Abdomen without Contrast MR#: [id number] Acct: [id number] Name: NEISHA TOBAR Rep #: [id number] : 1950 F 68 From: Vj Rajput MD PCP: Jessica Corona DO Status: REG CLI Study: MRCP Abdomen without Contrast Date of Exam: 02/14/18 Exam# [id number] Ordering Dr: Rigo Corona DO STUDY: MR [...] Service support , CC: Jessica Corona DO Bull Riveter: Signed 03-Feb-2018 Abdomen Limited Result: Comments: See Note; NOTES: [facility] Imaging Services [address] [place] [address] Abdomen Limited MR#: [id number] Acct: [id number] Name: NEISHA TOBAR Shubham Rep #: [id number] D OB: 1950 F 68 From: Kvng Cutler MD PCP: Jessica Corona DO Status: REG CLI Study: Abdomen Limited Date of Exam: 02/03/18 Exam# [id number] Ordering Dr: Jessica Corona DO STUDY: ABDOMINAL [...] Kvng Cutler MD at 13:52 EDT Tel [phone], Service support , CC: Jessica Corona DO Bull Riveter: Signed 31-Jan-2018 SCREENING MAMM (CAD), BILAT Result: Comments: See Note; NOTES: [facility] Imaging Services [address] [place] [address] SCREENING MAMM (CAD), BILAT MR#: [id number] Acct: [id number] Name: NEISHA TOBAR Rep #: [id number] : 1950 F 67 From: Kvng Cutler MD PCP: Jessica Corona DO Status: [facility] Study: SCREENING MAMM (CAD), BILAT Date of Exam: 01/31/18 Exam# [id number] Ordering Dr: Lidia Corona DO MAMMOGRAPHY - [...] delay biopsy of a clinically suspicious abnormality. [id number] Electronically Signed: Kvng Cutler MD at 14:26 EDT Tel [phone], Service supp ort , CC: Jessica Corona DO Bull Riveter: Signed 28-Aug-2015 Bilat Scrn Digital AND CAD Result: Comments: See Note; NOTES: [facility] Imaging Services [address] [place] [address] Breast Imaging Report MR#: [id number] Acct: [id number] Name: NEISHA TOBAR Rep # : [id number] : 1950 F 65 From: Kvng Cutler MD PCP: Jessica Corona DO Status: REG CLI Study: Bilat Scrn Digital AND CAD Date of Exam: 08/28/15 Exam# [id number] Ordering Dr: Raymond Corona DO MAMMOGRAPHY - [...] be sent to the patient by the [facility] within 30 days. Approximately 10% of breast cancers are not detected by mammography. A normal mammogram should not delay biopsy of a clinically suspicious abnormality. Electronically Mirian d: Kvng Cutler MD at 8:05 EDT Tel [phone], Service support [phone], CC: Jessica Corona DO Bull Riveter: Signed 03-Jun-2015 PT Discharge Summary Result: Comments: See Note; NOTES: [facility] Physical Therapy [address] [place] [address] Fax REHABILITATION SERVICES DISCHARGE SUMMARY MR#: [id number] Acct: [id number] Name: NEISHA TOBAR Rep #: [id number] : 1950 65 From: Sandy Nelson Referring DrEfrain: Jud Saamniego Status: DIS RCR Eval Date: Discharg e Date: 04/22/15 DATE OF SERVICE: REFERRING PHYSICIAN: Jud Samaniego. REFERRING DIAGNOSIS: Back pain. Pat was seen for the initial evaluation and then we would wait for approval for insurance. Once insurance approval came back, Marychuy decided that her back is fine and no therapy is needed at this time; therefore, I will be discharging her from our care. Thank you once again for the referra l of Neisha to our clinic. Sandy Nelson, PT T: NTS JOB: [id number] <Electronically signed by Sandy Nelson > 06/03/15 1726 CC: Signed 26-May-2015 Chest PA and Lateral Result: Comments: See Note; NOTES: [facility] Imaging Services [address] [place] [address] Radiology Report MR#: [id number] Acct: [id number] Name: NEISHA TOBAR Rep #: [id number] : 1950 F 65 From: Zoila Allen MD PCP: Jessica Corona DO Status: REG CLI Study: Chest PA and Lateral Date of Exam: 05/26/15 Exam# [id number] Ordering Dr: Jud Samaniego STUDY: X-RAY C [...] MD at 12:07 EDT , Service support [phone], RAD /Chest PA and Lateral IMPRESSION: There is a left midlung field calcified granuloma. There is bilateral lower lobe scarring/atelectasis. No radiographic evidence of bronchitis. Electronically Sig kyle: Zoila Allen MD at 12:07 EDT , Service support [phone], CC: Jud Samaniego; Jessica Corona DO Bull Riveter: Signed 13-May-2015 Inital Evaluation - PT Result: Comments: See Note; NOTES: [facility] Physical Therapy [facility] [address] [place] [address] Fax REHABILITATION SERVICES INITIAL EVALUATION MR#: [id number] Acct: [id number] Name: NEISHA TOBAR Rep #: [id number] : 1950 65 From: Sandy Nelson Referring [...] needed. Sandy Nelson, PT T: NTS JOB: [id number] <Electronically signed by Sandy Nelson > 05/13/15 0818 CC: Signed For Medicare only, by signing this I certify the plan of care. Physicians Signature Date 16-Apr-2015 L/S Spine Min 4 Views Result: Comments: See Note; NOTES: [facility] Imaging Services [address] [place] [address] Radiology Report MR#: [id number] Acct: [id number] Name: NEISHA TOBAR Rep #: [id number] : 1950 F 65 From: Rod Pollard DO PCP: Jessica Corona DO Status: REG CLI Study: L/S Spine Min 4 Views Date of Exam: 04/16/15 Exam# [id number] Ordering Dr: Jud Samaniego STUDY: X-RA Y [...] Rod Pollard DO at 16:48 EDT Tel [phone], Service support [phone], RAD/L/S Spine Min 4 Views IMPRESSION: Degenerative ch anges of the spine, as detailed above. Electronically Signed: Rod Pollard DO at 16:48 EDT Tel [phone], Service support [phone], CC: Jud Corona DO Bull Riveter: Signed 11-Jun-2014 Bilat Scrn Digital & CAD Result: Comments: See Note; NOTES: [facility] Imaging Services [address] [place] [address] Breast Imaging Report MR#: [id number] Acct: [id number] Name: DAKOTACatalinoNEISHA Rep #: [id number] : 1950 F 64 From: Ian Lamas MD PCP: Jessica Corona DO Status: REG CLI Exam# [id number] Ordering Dr: Jessica Corona DO MAMMOGRAPHY - [...] 17:24 EDT Tel , Ser vice support [phone], CC: Jessica Corona DO Bull Riveter: Signed 29-Oct-2013 Gastric Emptying Study Result: Comments: See Note; NOTES: [facility] Imaging Services [address] [place] [address] Nuclear Medicine Report MR#: [id number] Acct: [id number] Name: NEISHA TOBAR Rep #: [id number] : 1950 F 63 From: Celestine Garza DO PCP: Status: REG CLI Study: Gastric Emptying Study Date of Exam: 10/29/13 Exam# [id number] Ordering Dr: Jessica Corona DO CLINICAL: 63 [...] throughout al l components of the examination. (Freddy mccauley al, J Nucl Med Tech 38: 186, 2010). Electronically Signed: Celestine Garza M.D. 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 Exercise History Comments: Light Status: Active Living Situation Comments: Lives with spouse Status: Active No Drug Use Status: Active Tobacco/Smoke Exposure Comments: Exposed to passive smoke 02/07/12 Status: Active Vital Signs Date Test Result Details 0-Irg-384523:05 Pulse 62 /min Comments: Pattern: Regular Respiration Rate 18 /min Comments: Pattern: Unlabored O2 SAT 97 % Comments: Room air BP Systolic 158 mm[Hg] Comments: Patient Position: Sitting; Cuff Location: Left Arm; Cuff Size: Large BP Diastolic 80 mm[Hg] Comments: Patient Position: Sitting; Cuff Location: Left Arm; Cuff Size: Large Weight 196 lb Height 64 in Body Mass Index Calculated 33.64 kg/m2 Body Surface Area Calculated 1.94 m2 :56 Pulse 65 /min Comments: Pattern: Regular [...] kg/m2 Body Surface Area Calculated 1.94 m2 :24 Comments: recheck 230/100 Temperature 98 f [...] see. but her last appt was in [place] and had a glaucoma test donehearing wml Pulse 70 /min Comments: Pattern: Regular Respiration [...] kg/m2 Body Surface Area Calculated 1.96 m2 2-Dec-21336:57 Temperature 98.7 f Comments: Method: Temporal Pulse [...] Arm; Cuff Size: Large Height 64 in 19-Ymp-728008:06 Pulse 60 /min Comments: Pattern: Regular Respiration [...] 0.00 cm Results Date Description Value Details 43-Chm-98540:45 ALDOSTERONE ([id number]) Comments: PATIENT NOT FASTINGPERFORMED BY: [address] [id number] Aldosterone 19.6 ng/dL (Normal) Range: 0.0-30.0 Comments: This test was developed and its performance characteristicsdetermined by [facility]. It has not been cleared or approvedby the Food and Drug Administration. :45 RENIN ([id number]) Comments: PATIENT NOT FASTINGPERFORMED BY: [address] [id number] Renin Activity, Plasma 0.846 {ng/mL/hr} Range: 0.167-5.380 (Normal) Comments: This test was developed and its performance characteristicsdetermined by [facility]. It has not been cleared or approvedby the Food and Drug Administration. :00 METANEPHRINES - URINE ([id number]) Comments: PATIENT NOT FASTINGPERFORMED BY: [address] [id number] Metanephrine, U,24hr 84 {ug/24_hr} (Normal) Range: 45-290 Comments: (Hypertensive) >17 years 11 months: 35 - 460 Metanephrine, Ur 84 ug/L (Normal) Normetanephr.,U,24h 352 {ug/24_hr} (Normal) Range: 82-500 Comments: (Hypertensive) >17 years 11 months: 110 - 1050 Normetanephrine, Ur 352 ug/L (Normal) :00 CATECHOLAMINES TOTAL, URINE Comments: PATIENT NOT FASTINGPERFORMED BY: [address] [id number] Information: START 09/14/18 @5AM (10130) Dopamine, Ur, 24hr 155 {ug/24_hr} (Normal) Range: 0-510 Dopamine, Urine 155 ug/L (Normal) Comments: Verified by repeat analysis Norepinephrine,U,24h 52 {ug/24_hr} (Normal) Range: 0-135 Norepinephrine, Ur 52 ug/L (Normal) Comments: Verified by repeat analysis Epinephrine, U, 24hr 8 {ug/24_hr} (Normal) Range: 0-20 Epinephrine, Urine 8 ug/L (Normal) Comments: Verified by repeat analysis 67-Kyt-31574:00 URINE VMA (70911) Comments: PATIENT NOT FASTINGPERFORMED BY: [facility] [address] [id number] VMA, Urine, 24hr 2.4 {mg/24_hr} (Normal) Range: 0.0-7.5 Comments: This test was developed and its performance characteristicsdetermined by [facility]. It has not been cleared or approvedby the Food and Drug Administration. VMA, Urine 2.4 mg/L (Normal) 00-Edt-45030:38 Basic Metabolic Profile (BMP) Comments: [facility] [address] [place], [place], [address] GAP 7 (Normal) Range: 5-15 CO2 27.0 [...] A.D.A. criteria.Please note revised GLUCOSE reference range kekjvbngl23/02/2018. 00-Aer-74040:38 CBC W/Diff, Automated Comments: [facility] [address] [place], [place], [address] Absolute Lymph 1.21 {X10_3/ul} (Normal) Range: 0.83-4.51 [...] 4.2-5.4 WBC 5.8 K/mm3 (Normal) Range: 4.4-11.0 47-Vpy-440678:49 Basic Metabolic Profile (BMP) Comments: [facility] [address] [place], [place], [address] GAP 5 (Normal) Range: 5-15 CO2 30.0 [...] A.D.A. criteria.Please note revised GLUCOSE reference range /02/2018. 4-Jjl-325662:47 URINE KVNG CULTURE-HE COL Comments: PERFORMED BY: [facility] [place] [id number] Information: [id number] SRC:UR COUNT (25748) Antimicrobial MIHEAD (Normal) Comments: S = Susceptible; [...] Final report Culture,Comprehensive (Abnormal) 21-Jun-20188:17 Urinalysis, Office (80537) UA - LEUKOCYTE ESTERASE Negative (Normal) UA - NITRITE Negative (Normal) URINE UROBILINGN HE TIMED Normal mg/dL (Normal) UA - PROTEIN Negative mg/dL (Normal) UA - PH 7.5 (Normal) UA - BLOOD Negative (Normal) UA - SPECIFIC GRAVITY 1.010 (Normal) UA - KETONES Negative mg/dL (Normal) UA - BILIRUBIN Negative (Normal) UA - GLUCOSE Negative (Normal) 26-Ymw-73585:39 CBC, PLATELETS & AUT DIFF Comments: PATIENT NOT FASTINGPERFORMED BY: [facility] [facility] [id number] (94200) Immature Grans (Abs) 0.0 {x10E3/uL} (Normal) Range: [...] 3.77-5.28 WBC 4.8 {x10E3/uL} (Normal) Range: 3.4-10.8 83-Qrt-03694:39 C-REACT PROT HIGH SENS(hsCRP) Comments: PATIENT NOT FASTINGPERFORMED BY: [facility] 9709270 [facility] [id number] (37777) C-Reactive Protein, Cardiac 2.22 mg/L (Normal) Range: 0.00-3.00 Comments: Relative Risk for Future Cardiovascular Event Low <1.00 Average 1.00 - 3.00 High >3.00 79-Axl-99766:39 ESR-F (SED RATE ERYTHROCYTE - Comments: PATIENT NOT FASTINGPERFORMED BY: [employer] Izvgjd2547 [facility] [id number] FEMALE) (92310) Sedimentation Rate-Westergren 9 mm/h (Normal) Range: 0-40 :39 LDH (LD) (LACTATE DEHYDROGENASE) Comments: PATIENT NOT FASTINGPERFORMED BY: [facility] Ydzcpi4781 [facility] [id number] (94414) LDH 209 [iU]/L (Normal) Range: 119-226 Hemoglobin A1c 5.5 % (Normal) Comments: PATIENT NOT FASTINGPERFORMED BY: [facility] Znmzyk8236 [facility] [id number] 3:06 Range: 4.8-5.6 Comments: . Pre-diabetes: 5.7 - 6.4 Diabetes: >6.4 Glycemic control for adults with diabetes: <7.0 Written Authorization WAR (Normal) Comments: PATIENT NOT FASTINGPERFORMED BY: [facility] Nhdgrn0338 [facility] [id number] 3:06 Comments: Written Authorization Received.Authorization received from ANNETTE POWELL LPN [id number] by Lidia Reddy 96-Zoi-208286:06 TSH (42779) Comments: PATIENT NOT FASTINGPERFORMED BY: [facility] Ciykix1686 [facility] [id number] TSH 2.370 {uIU/mL} (Normal) Range: 0.450-4.500 21-Xbd-825858:06 METABOLIC PANEL, COMPREHENSIVE Comments: PATIENT NOT FASTINGPERFORMED BY: [facility] Ludzvp9061 [facility] [id number] (15533) ALT (SGPT) 19 [iU]/L (Normal) Range: 0-32 [...] 8-27 Glucose 102 mg/dL (Abnormal) Range: 65-99 53-Cfk-366891:06 CBC W/AUTO DIFF WBC (54532) Comments: PATIENT NOT FASTINGPERFORMED BY: [facility] CenterBvdilb4181 [facility] [id number] Immature Grans (Abs) 0.0 {x10E3/uL} (Normal) Range: [...] (Normal) Range: 3.4-10.8 :56 Free T3 Comments: [facility] [address] [place], [place], [phone] FREE T3 2.7 pg/mL (Normal) Range: 2.18-3.98 :56 Lipid Profile Comments: [facility] [address] [place], [place], [address] VLDL 34 mg/dL (Normal) Range: 5-40 LDL [...] mg/dL High Risk :56 Liver Profile Comments: [facility] [address] [place], [place], [id number] ; ov 03/20 D BILI 0.12 mg/dL (Normal) Range: 0.00-0.30 T BILI 0.50 mg/dL (Normal) Range: 0.20-1.00 ALT 24 U/L (Normal) Range: 13-56 ALK P 67 U/L (Normal) Range: 45-117 AST 19 U/L (Normal) Range: 15-37 GLOB 3.7 g/dL (Normal) Range: 2.2-4.2 ALB 3.8 g/dL (Normal) Range: 3.2-5.0 T PROT 7.5 g/dL (Normal) Range: 6.4-8.2 :56 T4 Free Direct Comments: [facility] [address] [place], [place], [address] T4 FREE DIRECT 0.97 ng/dL (Normal) Range: 0.76-1.46 :56 Thyroid Stim Hormone (TSH) Comments: [facility] [address] [place], [place], [address] TSH 3.42 {uIU/mL} (Normal) Range: 0.358-3.74 0-Gfh-552954:52 GGTP 30 U/L (Normal) Comments: [facility] [address] [place], [place], [address] Range: 5-55 2-Ieq-365578:52 Liver Profile Comments: [facility] [address] [place], [place], [address] D BILI 0.15 mg/dL (Normal) Range: 0.00-0.30 T BILI 1.10 mg/dL (Abnormal) Range: 0.20-1.00 ALT 31 U/L (Normal) Range: 12-78 ALK P 61 U/L (Normal) Range: 45-117 AST 21 U/L (Normal) Range: 15-37 GLOB 3.8 g/dL (Normal) Range: 2.2-4.2 ALB 3.8 g/dL (Normal) Range: 3.4-5.0 Comments: Please note revised Albumin AND Globulin reference rangeeffective 2017. T PROT 7.6 g/dL (Normal) Range: 6.4-8.2 4-Mtp-678451:36 Bilirubin, Direct Comments: LIVER AND GGTP FOR [facility] [address] [place], [place], [address] D BILI 0.14 mg/dL (Normal) Range: 0.00-0.30 :36 CBC W/Diff, Automated Comments: LIVER AND GGTP FOR [facility] [address] [place], [address] Absolute Lymph 1.45 {X10_3/ul} (Normal) Range: 0.83-4.51 [...] 4.2-5.4 WBC 6.4 K/mm3 (Normal) Range: 4.4-11.0 :36 Comprehensive Metabolic Profil Comments: LIVER AND GGTP FOR [facility] [address] [place], [place], [address] GAP 9 (Normal) Range: 5-15 CO2 27.0 [...] 7-18 GLU 91 mg/dL (Normal) Range: 70-110 5-Qrh-331003:36 GGTP 22 U/L (Normal) Comments: LIVER AND GGTP FOR [facility] [address] [place], [place], [address] Range: 5-55 6-Shp-886508:36 Lipid Profile Comments: LIVER AND GGTP FOR [facility] [address] [place] [address] [place], [address] VLDL 56 mg/dL (Abnormal) Range: [...] Comments: LIVER AND GGTP FOR [facility] [address] [place], [address] MALB:CREAT 38.1 {mg/g_CRE} (Abnormal) MICROALBUMIN,UR 43.8 mg/L (Normal) UR CREAT 115.00 mg/dL (Normal) 6-Ejp-250644:36 Thyroid Stim Hormone (TSH) Comments: LIVER AND GGTP FOR [facility] [address] [place], [address] TSH 4.13 {uIU/mL} (Abnormal) Range: 0.358-3.74 5-Xev-163795:36 Urinalysis, Complete Comments: LIVER AND GGTP FOR [facility] FOR [facility] was Urine Obtained? [facility] [address] [place], [address] HYALINE CAST 0-5 SEEN {/lpf} Range: [...] BIOPSY (CHOOSE SITE) See Note (Normal) Comments: [facility] [address] [place], [address] 0:00 Comments: Patient: NEISHA TOBAR : 1950 (66/F) Acct Num: [id number] Phys: Steve Richard Unit Num: [id number] Loc: LABSPEC Specimen: [id number] Received: 02/11/16 - 0754 Spec Type: COLON BX TISSUES TISSUES: GROSS DESCRIPTION Received is one container labeled with the patient name and designated biopsy polyp right colon. The specimen consists of multiple irre gular fragments of light ramirez soft tissue that in aggregate measure 0.2 x 0.1 x 0.1 cm. The specimen is totally submitted in one cassette. / AM: 02/10/16 TC:5 CPT:29226 HEADER OPERATION: Colon oscopy with biopsy PRE-OP DIAGNOSIS: High-risk screen/polyp TISSUE SUBMITTED: Biopsy, polyp, right colon - rule out adenoma MICROSCOPIC DESCRIPTION Slides are reviewed. MICROSCOPIC DIAGNOS IS Right colon polyp, biopsy: Hyperplastic polyp. AM:crow 02/11/16 Signed Samuel Acevedo 02/11/16 <signature on file> C difficile Toxins A+B, Negative (Normal) Comments: PATIENT NOT FASTINGPERFORMED BY: LUIS [facility] Kuqkgh2837 [facility] [id number] 3:19 EIA Cryptosporidium EIA Negative (Normal) Comments: PATIENT NOT FASTINGPERFORMED BY: [facility]6370 [facility] [id number] 3:19 0-Fxp-039141:19 Giardia, EIA, Ova/Parasite Comments: PATIENT NOT FASTINGPERFORMED BY: [facility]6370 [facility] [id number] Giardia lamblia Ag, Negative (Normal) EIA Result 1 NOCP (Normal) Comments: No ova, cysts, or parasites seen. Ova + Parasite Exam Final report Comments: These results were obtained using wet preparation(s) and trichromestained smear. This test does not include testing for Cryptosporidiumparvum, Cyclospora, or Microsporidia. (Normal) : Occult Blood, Fecal, Negative (Normal) Comments: PATIENT NOT FASTINGPERFORMED BY: [facility]6370 [facility] [id number] 19 [place] 9-Zxg-706687:19 Stool Culture Comments: PATIENT NOT FASTINGPERFORMED BY: [address] [id number] Information: SRC:ST STOOL E coli Shiga Toxin EIA Negative (Normal) Result 1 NCI (Normal) Comments: No Campylobacter species isolated. Campylobacter Culture Final report (Normal) Result 1 NSS (Normal) Comments: No Salmonella or Shigella recovered. Salmonella/Shigella Screen Final report (Normal) :19 White Blood Cells (WBC), Comments: PATIENT NOT FASTINGPERFORMED BY: [facility]6370 [facility] [id number] Stool Result 1 NWBC (Normal) Comments: No white blood cells seen. White Blood Cells (WBC), Final report (Normal) Stool :54 CBC W/AUTO DIFF WBC Comments: PATIENT NOT FASTINGPERFORMED BY: [facility]6370 [facility] [id number] Information: [id number] (36814) Immature Grans (Abs) 0.0 {x10E3/uL} (Normal) Range: [...] PANEL, COMPREHENSIVE Comments: PATIENT NOT FASTINGPERFORMED BY: [facility] CenterJvlcis2872 [facility] [id number] (21060) ALT (SGPT) 19 [iU]/L (Normal) Range: 0-32 [...] 99 mg/dL (Normal) Range: 65-99 :54 TSH (34346) Comments: PATIENT NOT FASTINGPERFORMED BY: [facility] Xxpzdx2938 [facility] [id number] TSH 2.210 {uIU/mL} (Normal) Range: 0.450-4.500 :05 Urinalysis, Office (04368) UA - LEUKOCYTE ESTERASE Negative (Normal) UA [...] CHOL 310 mg/dL (Abnormal) Comments: <200 mg/dL Drwfbqdit242-998 mg/dL Borderline>240 mg/dL High Risk TRIG 185 [...] UCOL Yellow (Normal) :26 HgA1C , Office (92282) HgA1C , Office 5.7 % (Normal) Range: [...] CHOL 286 mg/dL (Abnormal) Comments: <200 mg/dL Zclmwwkdn561-661 mg/dL Borderline>240 mg/dL High Risk :14 MIACRE tMICROCREAT <TEST NOT PERFORMED> {mg/g_CRE} (Normal) MIALB < 5.0 mg/L (Normal) CREU 18.4 mg/dL (Normal) :14 TSH 3.54 {uIU/mL} (Normal) Range: 0.358-3.74 :14 UA UMUC 0 SEEN {/hpf} (Normal) UBAC 0 [...] (Normal) UCLAR Clear (Normal) UCOL Yellow (Normal) 9-Ioy-284324:43 BILAT SCRN DIGITAL & CAD Radiology Report [...] Cutler M.D.January 23, 2013 at 12:21:32 PM [id number] Signed GP/GP If you are the referring physician and would like to consult with theradiologist who provided this interpretation, please contact Letty Mukherjee at [phone]. If this radiologist is unavailable, youwill be directed to another radiologist to as sist. If you are a patient with a question regarding this report, pleasecontactyour referring physician directly. Professional Interpretation Provided By: [employer], Phone ,Fax These documents contain legally protected [...] on 01/24/131712 Sign by: Kvng Cutler MD 99-Arc-40879:57 ABDOMEN/PELVIS WITH CONTRAST Radiology Report See Note [...] narrowing at the L4, L5, and L5, X5sngahd. IMPRESSION:Sigmoid diverticulosis. Signed:Kvng Cutler M.D.September 01, 2012 at 1:13:05 PM [phone] Signed GP/GP If you are the referring physician and would like to consult with theradiologist who provided this interpretation, please contact Letty Mukherjee at . If this radiologist is unavailable, youwill be directed to another radiologist to assist. If you are a patient with a question regarding this report, pleasecontactyour referring physician directly . Professional Interpretation Provided By: [employer], Phone , These documents contain legally protected [...] 09/01/12 1323 Sign by: Kvng Cutler MD 08-Ezl-144274:53 CRE GFRAA 109 mL/min (Normal) GFR 90 mL/min (Normal) CREAT 0.7 mg/dL (Normal) Range: 0.6-1.0 00-Drg-390653:41 KNEE,4 OR MORE VIEWS Radiology Report See [...] regarding t his report, please call our 58A7udmjlze line @ Dictated on 01/31/12 1436 by Alec MCKAY,RanulforieleTranscribed on 02/01/12 1327 by ITS IMPORTSign by Kvng Cutler MD on 02/01/12 13 28 Sign by: Kvng Cutler MD 7-Bbp-419180:36 CULTURE, URINE URINE CULTURE See Note {CFU/mL} (Normal) Comments: COLONY COUNT 25,000-50,000 ORGANISM 1: MIXED GRAM POSITIVE ORGANISMS :17 Urinalysis, Office (22570) UA - BILIRUBIN Negative (Normal) UA - [...] :34 TSH 3.22 {uIU/mL} (Normal) Range: 0.358-3.74 93-Xxw-002750:23 URINE KVNG CULTURE-IDENTIFICATN Comments: PATIENT NOT FASTINGPERFORMED BY: LUIS [facility] Bcptdp[address] [place] [id number] Information: [id number] (04007) Antimicrobial MIHEAD (Normal) Comments: S = Susceptible; [...] primarily for treating urinary tract infections. (CLSI, D465-V73,2009) Result 1 Klebsiella pneumoniae Comments: 3,000 Colonies/mL . (Normal) Urine Final report (Normal) Culture,Comprehensive :52 Urinalysis, Office (49273) UA - BILIRUBIN Negative (Normal) UA - BLOOD Negative (Normal) UA - GLUCOSE Negative (Normal) UA - KETONES Negative mg/dL (Normal) UA - LEUKOCYTE ESTERASE Small (Normal) UA - NITRITE Negative (Normal) UA - PH 5.0 (Normal) UA - PROTEIN Negative mg/dL (Normal) UA - SPECIFIC GRAVITY 1.015 (Normal) URINE UROBILINGN HE TIMED Normal mg/dL (Normal) 7-Vng-235348:44 TRANSVAGINAL NON- Radiology Report See Note (Normal) Comments: Exam Number: [id number] LINICAL:This is a 60-year-old female patient with [...] were not visualized. Reported By: KVNG CUTLER 5-Xte-417005:24 PELVIC (NON ) Radiology Report See Note (Normal) Comments: Exam Number: [id number] LINICAL:This is a 60-year-old female patient with [...] were not visualized. Reported By: KVNG CUTLER 26-Yoy-619172:53 URINE KVNG CULTURE-HE COL Comments: PATIENT NOT FASTINGPERFORMED BY: [facility] Oojxsg9593 [facility] [id number] Information: SRC:URT [id number] COUNT (42155) Result 3 BETAGB (Normal) Comments: Beta hemolytic Streptococcus, group B2,000 Colonies/mLPenicillin continues to be the drug of choice for infectionscaused by beta hemolytic streptococci in groups A,B,C and G.No penicillin resistance has been described among theseorganisms and surveillance for emerging resistance is notrecommended. (KARLOS Thompson. Clinical Microbiology Newsletter,Nov. 1993; RAYMOND Estrella et al. Diagnostic Microbiology andIn fectious Disease, [...] primarily for treating urinary tract infections. (CLSI, D842-T23,2009) Result 2 Klebsiella pneumoniae Comments: 100 Colonies/mL . (Normal) Urine Final report (Normal) CultureEdna 98-Tfp-29130:50 Urinalysis, Office (26447) UA - LEUKOCYTE ESTERASE Trace (Normal) UA - NITRITE Negative (Normal) URINE UROBILINGN HE TIMED Normal mg/dL (Normal) UA - PROTEIN Negative mg/dL (Normal) UA - PH 5.0 (Normal) UA - BLOOD Non Hemolyzed Trace (Normal) UA - SPECIFIC GRAVITY 1.010 (Normal) UA - KETONES Negative mg/dL (Normal) UA - BILIRUBIN Negative (Normal) UA - GLUCOSE Negative (Normal) 3-Xkx-946154:00 Urinalysis, Office (26629) UA - LEUKOCYTE ESTERASE Trace (Normal) UA [...] Comments: GLU,2HPPG 75gm GLUC PPG GLUP from 0902:V35606J. :34 CBC, EMPLOYEE [employer] 34.4 g/dL (Normal) [...] CHOL 283 mg/dL (Abnormal) Comments: <200 mg/dL Ytzoehoaq474-619 mg/dL Borderline>240 mg/dL High Risk HDL 53 [...] SeeNote (Normal) Comments: Result: NEGATIVE :02 THYROID () Radiology Report See Note (Normal) Comments: Exam Number: [id number] CLINICAL:This is a 60-year-old female patient with [...] of the thyroid. Reported By: KVNG CUTLER 77-Lqy-19511:10 COLON BX P-COLBX (Normal) Comments: OPERATIONColonoscopy with [...] cassette. / LONG:chris 03/19/10TC:4REPORT SIGNED: SHREE WEINSTEIN 03/20/1010-Feb-201023-Esi-215557:08 KNEE,4 OR MORE VIEWS (MT) Radiology Report See Note (Normal) Comments: Exam Number: [id number] CLINICAL:Pain X-RAY EXAMINATION LEFT KNEE TECHNIQUE:Four views of the knee. COMPARISON:None. FINDINGS:Normal visualized distal femur. Normal visualized proximal tibia. Normal visu alized proximal fibula. There is minimal narrowing of the medial femorotibial compartment.Normal lateral femorotibial compartment. Normal patellofemoral articulation. There is no demonstrated jointeffu tamia. There is no demonstrated soft tissue swelling. IMPRESSION:Chronic degenerative changes, as discussed above. Reported By: SURINDER WOODRUFF 43-Vja-413866:00 SPINE, LUMBAR W/W/O CONTRAST Radiology Report See Note (Normal) Comments: Exam Number: [id number] CLINICAL:59-year-old female with displaced lumbar disk low [...] Reported By: LANDY HIGHTOWER M.D. :03 TRAN-D [id number] TRAN-DIRECT SeeNote (Normal) Comments: Result: Negative Performed At: [facility] [id number] At: [facility] Bylplq79[address] [place], [place] [id number] :03 ANTI-CCP 779356 6 {units} (Normal) Range: 0-19 Comments: Negative [...] mg/L (Normal) UR CREAT 32.5 mg/dL (Normal) 8-Oct-92100:03 RHEUMATOID FAC 11.2 {IU/mL} (Normal) :03 ROUTINE [...] Report See Note (Normal) Comments: Exam Number: [id number] BILATERAL SCREENING MAMMOGRAM COMPARISONComparison is made to [...] The mammogramswere also examined with computer-aided detection software(Nagi.). Reported By: CHUCK PEREZ M.D. 14-Ypz-917092:46 SHOULDER,MIN 2 VIEWS Radiology Report See Note (Normal) Comments: Exam Number: [id number] RIGHT SHOULDER HISTORYShoulder pain. TECHNIQUEFour views of [...] normal variant. Reported By: LUIS JORGE M.D. 25-Cuh-149299:00 LQD PAP [id number] Comments: CYTOLOGY INFORMATION:- CLINICAL INFORMATION: POSTMENOPAUSAL- DATE LMP/MENOPAUSE: - COLLECTION VIAL: Thin Prep Vial- MILLED RICE BROKER SOURCE: CERVICAL/ENDOCERVICAL- COLLECTION TECHNIQUE: BRUSH/SPATULA ADEQ Comment (Normal) Comments: Satisfactory for evaluation. Endocervical and/or squamous metaplasticcells (endocervical component) are present. COMM . (Normal) DIAGN Comment (Normal) Comments: NEGATIVE FOR INTRAEPITHELIAL LESION AND MALIGNANCY. HPV RFLX Comment (Normal) Comments: The HPV DNA reflex criteria were not met with this specimenresult therefore, no HPV testing was performed. .Performed At: [facility] K[address] [place], [place] [id number] PAPSMR Comment (Normal) Comments: The Pap smear is a screening test designed to aid in thedetection of pre-malignant and malignant conditions of theuterine cervix. It is not a diagnostic procedure andshould not be used as the sole mean s of detecting cervicalcancer. Both false-positive and false-negative reports dooccur. . 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) Comments: Cristal P[facility] Plan of Care Name Dates Details Instructions Hypertensive heart disease without congestive heart failure : Follow up in 2 -3weeks Indication: Hypertensive heart disease without congestive heart [...] Diagnostic Tests Indication: Headache Headache : Reviewed [employer] [employer] Letter Indication: Headache Hypertensive heart disease without [...] Indication: Epigastric pain Epigastric pain : Reviewed [employer] [facility] [employer] Letter Indication: Epigastric pain Epigastric pain : [...] reflux disease) Planned Observations Metabolic Panel, Basic (94131)Indication: Therapeutic drug monitoring On: 84-Fxv-57615:13 Request Comments: give to jud to review HEPATIC FUNCTION PANEL (03828)Indication: Common bile duct dilation On: 49-Pyf-788029:18 Request HEPATIC FUNCTION PANEL (57704)Indication: Epigastric pain On: 26-Swc-396951:51 Request LIPID PANEL (38558)Indication: Hypercholesteremia On: :25 Request TSH (35093)Indication: Abnormal TSH On: :21 Request T4, FREE (THYROXINE) (72526)Indication: Abnormal TSH On: :21 Request T3, FREE (TRIDOTHYRONINE) (02451)Indication: Abnormal TSH On: :21 Request TSH (36050)Indication: Hypercholesteremia On: :14 Request URINALYSIS, W/ MICRO (84820)Indication: Hypertensive heart disease without congestive heart failure On: :14 Request MICROALBUMIN: CREATININE RATIO (55848) AND (27543)Indication: Hypertensive heart disease without congestive heart failure On: :14 Request METABOLIC PANEL, COMPREHENSIVE (59247)Indication: Hypertensive heart disease without congestive heart failure On: :14 Request LIPID PANEL (37683)Indication: Hypercholesteremia On: :14 Request CBC W/AUTO DIFF WBC (84981)Indication: Hypertensive heart disease without congestive heart failure On: 52-Ogv-239858:14 Request Cryptosporidium Sp Ag, Direct Fluorescent Ab (67102)Indication: Diarrhea On: :44 Request GIARDIA LAMBLIA ANTIBODY (88169)Indication: Diarrhea On: :43 Request C-DIFFICILE, STOOL (39174)Indication: Diarrhea On: :43 Request OVA & PARASITE DIR SMEAR (61923)Indication: Diarrhea On: :43 Request OCCULT BLOOD FECES SCREEN (50887)Indication: Diarrhea On: :43 Request LEUKOCYTE COUNT, FECAL (23686)Indication: Diarrhea On: :43 Request KVNG CULTURE-STOOL (55226)Indication: Diarrhea On: :43 Request FECAL OCCULT HGB ASSAY- tubes sent home (40801)Indication: Encounter for Medicare annual wellness exam On: 94-Oqy-74436:28 Request TSH (73627)Indication: Hypertensive heart disease without congestive heart failure On: 51-Lpf-259397:27 Request URINALYSIS, W/ MICRO (85310)Indication: Hypertensive heart disease without congestive heart failure On: 27-Zhp-919398:27 Request MICROALBUMIN: CREATININE RATIO (42076) AND (53766)Indication: Hypertensive heart disease without congestive heart failure On: 68-Lem-104929:27 Request METABOLIC PANEL, COMPREHENSIVE (08425)Indication: Hypertensive heart disease without congestive heart failure On: 07-Ehs-746384:27 Request CBC WITH MANUAL DIFF (89816)Indication: Hypertensive heart disease without congestive heart failure On: 42-Ucr-411050:27 Request LIPID PANEL (06151)Indication: Hypercholesteremia On: 05-Feb-2014 Request URINE KVNG CULTURE-HE COL COUNT (83108)Indication: Urinary frequency On: :17 Request Magnesium (35691)Indication: Hypopotassemia On: 25-Xex-893608:50 Request Metabolic Panel, Basic (15206)Indication: Hypopotassemia On: 32-Vsi-601263:49 Request TSH (27653)Indication: Hypercholesteremia On: :09 Request URINALYSIS, W/ MICRO (84875)Indication: Hypertensive heart disease without congestive heart failure On: 43-Ufc-63174:09 Request MICROALBUMIN: CREATININE RATIO (90706) AND (21381)Indication: Hypertensive heart disease without congestive heart failure On: :09 Request METABOLIC PANEL, COMPREHENSIVE (54971)Indication: Hypertensive heart disease without congestive heart failure On: :09 Request LIPID PANEL ([id number])Indication: Hypercholesteremia On: :09 Request CBC WITH MANUAL DIFF ([id number])Indication: Hypertensive heart disease without congestive heart failure On: :09 Request URINE KVNG CULTURE-HE COL COUNT ([id number])Indication: Dysuria On: 7-Kyk-627633:00 Request Glucose, PP/2 Hour ([id number])Indication: Other specified abnormal findings of blood chemistry On: :21 Request HEPATIC FUNCTION PANEL ([id number])Indication: Hypercholesteremia On: :57 Request LIPID PANEL ([id number])Indication: Hypercholesteremia On: :57 Request Comments: DO IN 3 MONTHS Glucose, PP/2 Hour ([id number])Indication: Other specified abnormal findings of blood chemistry On: :57 Request TRAN (ANTINUCLEAR ANTIBODY) ([id number])Indication: Pain in unspecified joint On: :29 Request C-REACTIVE PROTEIN ([id number])Indication: Pain in unspecified joint On: 14-Bzy-984253:29 Request CBC WITH MANUAL DIFF ([id number])Indication: Pain in unspecified joint On: :29 Request CCP ANTIBODY ([id number])Indication: Pain in unspecified joint On: :29 Request METABOLIC PANEL, COMPREHENSIVE ([id number])Indication: Pain in unspecified joint On: 82-Fpm-793135:29 Request RHEUMATOID FACTOR-QUANT ([id number])Indication: Pain in unspecified joint On: :29 Request SED RATE ERYTHROCYTE ([id number])Indication: Pain in unspecified joint On: 48-Zls-041384:29 Request TSH ([id number])Indication: Pain in unspecified joint On: 30-Lgn-947214:29 Request FECAL OCCULT- Tubes sent home ([id number])Indication: Benign essential hypertension On: : Request TSH ([id number])Indication: Benign essential hypertension On: 08-Jau-695985:09 Request URINALYSIS W/O MICRO ([id number])Indication: Benign essential hypertension On: 19-Zgh-562882:09 Request MICROALBUMIN: CREATININE RATIO ([id number]) AND ([id number])Indication: Benign essential hypertension On: 03-Oic-717651:09 Request METABOLIC PANEL, COMPREHENSIVE ([id number])Indication: Benign essential hypertension On: :09 Request LIPID PANEL ([id number])Indication: Benign essential hypertension On: :09 Request CBC WITH MANUAL DIFF ([id number])Indication: Benign essential hypertension On: 53-Iij-591302:09 Request HEPATIC FUNCTION PANEL ([id number])Indication: Hypercholesteremia On: :56 Request Comments: DO IN 3 MONTHS LIPID PANEL ([id number])Indication: Hypercholesteremia On: 9-Qdr-825773:56 Request URINALYSIS W/O MICRO ([id number])Indication: Hypertension On: :51 Request TSH ([id number])Indication: Hypertension On: :51 Request MICROALBUMIN URINE QUANT ([id number])Indication: Hypertension On: 89-Rqi-14850:51 Request METABOLIC PANEL, COMPREHENSIVE ([id number])Indication: Hypertension On: 18-Pbx-13523:50 Request LIPID PANEL ([id number])Indication: Hypertension On: :50 Request CBC WITH MANUAL DIFF ([id number])Indication: Hypertension On: 42-Blo-57921:50 Request Planned Encounters Medical; 2 Week FU - On: 27-Sep-2018 10:15 [facility] Jessica Corona DO, DO, Kathleen Medical; 2 Week FU - On: 10-Oct-2018 13:30 [facility] Jessica Corona DO, DO, Kathleen Planned Procedures Nuclear Stress Test/Stress On: 25-Sep-2018 Intent SPECT/AdenosineBy: Jessica Corona DO, DO, Kathleen Renal Duplex ScanBy: Chloe SCHROEDER, On: 13-Sep-2018 Intent Jessica Proctor DO Ultrasound - RenalBy: Chloe SCHROEDER, On: 13-Sep-2018 Intent Jessica Proctor DO X-RAY OF ABDOMEN, FLAT PLATE AND ERECT On: 21-Jun-2018 Intent ([id number])By: Jud Samaniego CNP X-RAY OF CERVICAL SPINE, TWO VIEWS On: 02-Jun-2018 Intent ([id number])By: Jessica Corona DO, DO, Kathleen Radiology - Lumbar SpineBy: Mohamud, On: 25-May-2018 Intent Addie ELECTROCARDIOGRAM, COMPLETE (ECG) On: 04-May-2018 Intent ([id number])By: Jessica Corona DO Comments: nsr / no acute chg - pvc present and IVCD DO, Jessica [facility]ING FOR On: 28-Apr-2018 Intent OBESITY, 15 MINUTES ([id number])By: Jessica Corona DO, DO, Kathleen DEXA SCAN AXIAL SKELETON ([id number])By: On: 28-Apr-2018 Intent Jessica Corona DO, DO, Kathleen MRCP (MAGNETIC RESONANCE On: 06-Feb-2018 Intent CHOLANGIOPANCREATOGRAPHY) ([id number])By: Jessica Corona DO, DO, Kathleen ULTRASOUND OF UPPER ABDOMEN ([id number])By: On: 27-Jan-2018 Intent Jessica Corona DO, DO, Kathleen Comments: attention size of CBD SCREENING DIGITAL TOMOSYNTHESIS OF On: 09-Jan-2018 Intent BREAST ([id number])By: Addie Odell LPN ELECTROCARDIOGRAM, COMPLETE (ECG) On: 03-Aug-2017 Intent ([id number])By: Jessica Corona DO Comments: sinus vinicio no new acute chg DOJessica MAMMOGRAM BREAST BILATERAL SCREENING On: 03-Jul-2015 Intent DIGITAL ([id number])By: Jessica Corona DO, DO, Kathleen Radiology - ChestBy: Jud Samaniego CNP On: 26-May-2015 Intent Aerosol Treatment ([id number])By: Danette SPRINGER, On: 26-May-2015 Intent Jud Gunter Aerosol Treatment ([id number])By: Froylan KENT, On: 05-May-2015 Intent [facility] - Lumbar SpineBy: Danette SPRINGER, On: 15-Apr-2015 Intent Jud Gunter Toradol Injection, 30 mg ([id number])By: On: 11-Apr-2015 Intent Jud Samaniego CNP ADMINISTRATION OF PNEUMOCOCCAL VACCINE On: 10-Jun-2014 Intent ([id number])By: Jessica Corona DO, DO, Kathleen PNEUM VAC ADLT/IMUMNOSPR, SBC/INTRM On: 10-Jun-2014 Intent ([id number])By: Jessica Corona DO Comments: lot: [id number]: 03/22/15site/route: L del/IMamt: 0.5mLVIS signed when applicableJULIEN Rod DO, Kathleen F[facility] COUNSELING FOR On: 10-Jun-2014 Intent OBESITY, 15 MINUTES ([id number])By: Jessica Corona DO, DO, Kathleen BILATERAL MAMMOGRAMS ([id number])By: Chloe On: 04-Jun-2014 Jessica Mauricio DO, DO, Kathleen EKG ([id number])By: Jessica Corona DO On: 04-Feb-2014 Intent Jessica Corona DO Comments: nsr no acute cg Eprescribed prescriptions ([id number])By: On: 16-Nov-2013 Intent Jessica Corona DO, DO, Kathleen gastric emptying studyBy: Chloe SCHROEDER, On: 10-Oct-2013 Jessica Nice DO FLU VAC, SPLIT, >3 YEARS, INTRAMUSC On: 06-Sep-2013 Intent ([id number])By: Addie Odell LPN Comments: Lot:[id number]:6.14Amt:0.5mlRoute:IMSite: L DltdGiven By: LAUREN Fontenot signed ADMINISTRATION OF INFLUENZA VIRUS On: 06-Sep-2013 Intent VACCINE ([id number])By: Addie Odell LPN EKG ([id number])By: Jessica Corona DO On: 26-Mar-2013 Intent Jessica Corona DO Comments: nsr no acute ischemic changes/ borderline LVH Eprescribed prescriptions ([id number])By: On: 26-Mar-2013 Intent Viola Goldsmith Eprescribed prescriptions ([id number])By: On: 23-Feb-2013 Intent Viola Goldsmith MAMMOGRAM, SCREENING, BOTH BREASTS On: 19-Jan-2013 Intent ([id number])By: Jessica Corona DO, DO, Kathleen CT - Abdomen & Pelvis (IV Contrast On: 28-Aug-2012 Intent Needed)By: Jessica Corona DO, DO, Kathleen Eprescribed prescriptions ([id number])By: On: 28-Aug-2012 Intent Addie Odell DONTE DRAIN/INJECT, JOINT/BURSA ([id number])By: On: 25-Feb-2012 Intent Jessica Corona DO, DO, Kathleen Comments: inject 2 cc marcaine 1 cc kenolog Radiology - Knee - RightBy: Chloe SCHROEDER, On: 31-Jan-2012 Intent Jessica Proctor DO Eprescribed prescriptions ([id number])By: On: 25-Oct-2011 Intent Jessica Corona DO, DO, Kathleen TDAP VACCINE >7 IM ([id number])By: Chloe On: 02-Jul-2011 Jessica Mauricio DO, DO, Kathleen Comments: 0.5cc given im rt dltd lot [id number] exp 08-11-13 EKG ([id number])By: Jessica Corona DO On: 01-Feb-2011 Intent Jessica Corona DO Comments: nsr no acute changes-- borderline LVH -- but seen on echo best Bio Z ([id number])By: Jessica Corona DO On: 01-Feb-2011 Intent Jessica [...] On: 18-Aug-2009 Intent Jessica Proctor DO EKG ([id number])By: Jessica Corona DO On: 18-Aug-2009 Intent Jessica Corona DO Comments: nsr no acute changes Pulse Oximetry ([id number])By: Chloe SCHROEDER, On: 05-Mar-2009 Intent Jessica Proctor DO Comments: 93% RA Aerosol Treatment ([id number])By: Chloe SCHROEDER, On: 05-Mar-2009 Intent Jessica Proctor DO Comments: better air exchange no wheeze Solu- Medrol Injection, 125mg On: 05-Mar-2009 Intent ([id number])By: Jessica Corona DO Comments: injection given in left glutues alvarado. Pt tolerated well. [id number] Jessica SCHROEDER EKG ([id number])By: Jessica Corona DO On: 25-Feb-2008 Intent Jessica [...] Jud Samaniego CNP Instructions Name Dates Details Hypertensive heart disease without congestive heart failure : How to access health information online Indication: Hypertensive heart disease without congestive heart failure Hypertensive heart disease without congestive heart failure : How to access health information online - Detail Indication: Hypertensive heart disease without congestive heart [...] failure Hypercholesteremia : DISCONTINUED - LIPID PANEL ([id number]) Indication: Hypercholesteremia Hypercholesteremia : DISCONTINUED - TSH ([id number]) Indication: Hypercholesteremia Hypertensive heart disease without congestive heart failure : DISCONTINUED - URINALYSIS, W/ MICRO ([id number]) Indication: Hypertensive heart disease without congestive heart failure Hypertensive heart disease without congestive heart failure : DISCONTINUED - MICROALBUMIN: CREATININE RATIO ([id number]) AND ([id number]) Indication: Hypertensive heart disease without congestive heart failure Hypertensive heart disease without congestive heart failure : DISCONTINUED - METABOLIC PANEL, COMPREHENSIVE ([id number]) Indication: Hypertensive heart disease without congestive heart failure Hypertensive heart disease without congestive heart failure : DISCONTINUED - CBC WITH MANUAL DIFF ([id number]) Indication: Hypertensive heart disease without congestive heart failure Irritable Bowel Syndrome : Patient Instructions Indication: Irritable Bowel Syndrome Abdominal pain, acute, left lower quadrant : Patient Instructions Indication: Abdominal pain, acute, left lower quadrant Abdominal pain, acute, left lower quadrant : Patient Instructions Indication: Abdominal pain, acute, left lower quadrant Encounters Office Visit On: 25-Sep-2018 13:57 Encounter Reason: Follow up tests - Date: (09/24/18 renal scan)., [ADDITIONAL REASON] Follow up Hypertension - blood pressure range : (203/95). Encounter Diagnosis: Hypertensive heart disease without congestive heart failure, Dilated cbd, acquired, End: 25-Sep-2018 15:59 Non-smoker, BMI 33.0-33.9,adult, Atypical chest pain, Nausea, Chronic scapular pain [facility] Office Visit On: 13-Sep-2018 10:38 Encounter Reason: [...] trip next week-[facility] bus trip.Encounter Diagnosis: Non-smoker, BMI 35.0-35.9,adult, Sciatica [...] the following pr eventative measures: PAP smear (2017), mammography (2018) and colonoscopy (2017). The patient does not have durable power of litigation attorney or living will. The patient has [...] the patient is following up for inc luddelfino All identified problems below, gastric reflux and [...] patient does not have durable power of litigation attorney or living will. The patient has [...] now its the R kneee-- achy pain ??lucho - deepthi End: 25-Feb-2012 12:41 ts to [...] now its the R kneee-- achy pain ??lucho - deepthi End: 31-Jan-2012 10:59 ts to [...] [facility] End: 06-Sep-2006 14:06 [facility]lement Francy bellamy guarantor
--- OUTSIDE RECORDS SUMMARY | 2018-12-17 17:03 | XMS RPT_ITS | Continuity of Care Document ---
:1950 Author Organization [facility] Address [address] [place] [address] Phone Care Team Providers Name Role Phone Jessica Corona DO Unavailable Marcy Allen Unavailable Huber MCKAY, Dr. Benitez Unavailable [facility] Unavailable DONTE Odell Unavailable Unavailable Emily [...] of colon) (Z12.11, V76.51) Comments: scope 2016- [facility] 2103 Status: Active Common bile duct dilation [...] 0 days Quantity: 10 {Tablet} Refills: 0 Ordered:04-Oct-2018 Mayte Corona DO, DO, Kathleen Start : 04-Oct-2018 Active TiZANidine HCl 4 MG Oral Tablet [...] Start : 25-May-2018 End : 28-May-2018 Inactive Comments:[id number]-659Eohfijobm-000OD Hcrc-977BA-Hwjqzqhb of Right Side (M54.31)#Three CELEBREX, 200MG (Oral [...] days Quantity: 10 {Tablet} Refills: 0 Ordered:05-May-2015 Phillyfreddyjosesito SPRINGERJud Start : 05-May-2015 End : 15-May-2015 [...] Comments: improvign for cough and sx at [facility] -- try cont albluterol, do muciinex [...] Total Completed Comments: 10/06 Date Value Details 02-Oct-2018 Stress Report Result: Comments: See Note; NOTES: [facility] Cardiovascular Services [address] [place] [address] MR#: [id number] Acct: [id number] Name: NEISHA TOBAR Rep #: [id number] : 68 From: Baron Gonzalez MD Primary Care: Jessica Corona DO Status: REG CLI Ordering Dr: Sex: F C Stress Test Report Pharmacologic myocardial perfusion stress test. 68-year-old lady with a h istory of chest pain. Stress protocol EKG demonstrates sinus bradycardia with a rate of 57 beats minute normal intervals and noted resting blood pressure 142/84 mmHg. 0.4 mg of regadenoson was infused per usual protocol followed by rapid intravenous and flush injection continuous EKG monitoring was performed. Patient maintained sinus rhythm throughout the recording. The maximum heart rate attained wa s 88 bpm which was 58% maximum predicted heart rate maximum workload was 1 metabolic equivalent. At rest there were no ST or T wave changes noted suggest abnormal flow reserve at peak infusion no ST or T wave changes were noted suggest abnormal flow reserve occasional premature ventricular complexes were noted. Myocardial perfusion protocol. 11.8 mCi of technetium 99m sestamibi was injected at rest. 0.4 mg of regadenoson was infused per usual protocol peak infusion 33.5 mCi of technetium 99m sestamibi was injected stress images were obtained stress and rest images were reconstructed and compared in the short axis vertical long horizontal long axis gated images were also obtained next Perfusion SPECT analysis. Review of the stress images demonstrate normal uptake of tracer noted in all areas of t he myocardium. The resting images similarly demonstrate normal uptake of tracer noted in all areas of the myocardium no reversibility is noted suggest ischemia no previous infarct is noted. Gated SPECT analysis: The gated ejection fraction is noted to be 57% Conclusion: Normal pharmacologic myocardial perfusion stress test. Preserved ejection fraction. 10/02/18 1454 <Electronically signed b clark Gonzalez MD> Date Baron Gonzalez MD CC: Jessica Corona DO Date Dictated: 10/02/188 Date Transcribed: 10/02/181447 French Binder: CO Signed 28-Sep-2018 Inital Evaluation (1) - PT Result: Comments: See Note; NOTES: [facility] [address] [place] [address] Fax REHABILITATION SERVICES INITIAL EVALUATION MR#: [id number] Acct: [id number] Name: NEISHA TOBAR Rep #: [id number] : 1950 68 From: Maliha Rudolph PT, Cert. MDT Referring Dr.: Jessica Corona DO Status: REG RCR Insurance: MEDICARE PART A B [employer] Patient's Visit Information NEISHA TOBAR is a 68 year old F referred to Physical Therapy by Jessica Corona with a diagnosis of CERVICAL RADICULOPATHY. Date o f Evaluation: 09/27/18 Physical Therapist: Maliha Rudolph - Visit Plan Frequency: 2-3x /Week Duration: 4-6 Weeks Plan: CERVICAL US. CTX (STARTING MANUALLY AND CONTINUEING OR PROGRESSING APPROPRIATE). POSTURE CORRECTION/STRENGTHENING, INSTRUCTION IN APPROPRIATE BODY MECHANICS AND ACTIVITY MODIFICATIONS. TOMI UE ROM, STRETCHING AND STRENGTHENING. HEP INSTRUCTION. - Subjective Subjective: Diagnosis: C ERVICAL RADICULOPATHY. 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 Disability: NO. Present symptoms: RIGHT NECK AND SHOULDER BLADE PAIN. INTERMITTENT RARE LEFT FI FTH DIGIT TINGLING. NO LEFT SIDE SX'S. Present since: ABOUT A YEAR AGO AND HAS GOTTEN PROGESSIVELY WORSE. Pain Scale: Worst - 8/10 Least - 0/10. Currently: 04/30. Commenced as a result of: NO APPARENT RE ASON. Symptoms at onset: RIGHT SHOULDER BLADE. Worse: EATING. Better: GAS X, LYING IN A POSSITION THAT PUTS PRESSURE ON RIGHT NECK/SHOULDER BLADE, HAVING A BOWEL MVMT, PASSING GAS. SOMETIMES WAKES PATIE NT UP AT NIGHT. Disturbed sleep: YES. Previous history/Previous treatment: NO NECK OR RIGHT SHOULDER HISTORY PRIOR TO A YEAR AGO. NO CHIROPRACTOR. NO NECK OR RIGHT SHOULDER SURGERY. NO NECK OR RIGHT WENDY ULDER INJECTIONS OR PHYSICAL THERAPY. Dizziness: NO. Tinnitis: NO. Nausea: YES - FROM GI PROBLEMS PER [facility] REPORT. Difficulty Swollowing: NO. Gait: INDEP GAIT WITHOUT ANY AD'S. NO FALLS EXCEPT 2010. Accidents: NO. Unexplained weight loss: NO. Imaging: There is spondylosis and disc space narrowing at the C5-6 level. 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 HTN. GERD. 2004 TWO LUMBAR DISCECTOMIES - BOTH BY DR. العلي AND PATIENT REPORTS DR. العلي TOLD HER HE TOOK THE WRONG DISC OUT THE FIRST TIME SO 2ND DISC TAKEN OUT 6 WEEKS LATER. PLOF (Prior Level of Function): ABLE TO SLEEP WITHOUT THIS PAIN WAKING HER UP. ABLE TO DO SAME ADL'S WITHOUT THE DISTRACTION OF THE PAIN. - Objective Sitting Posture/Standing Posture : POOR. Active Correction of posture: NE. Other Observations: INDEP GAIT AND TRANSFERS. Motor deficit: TOMI MEAT BLENDER STRENGTH 40 LBS. TOMI UE'S WFL. Sensory deficit: NO. ROM deficit: TOMI UE'S WFL WITH SLIGHT DEFICIT OF LEFT SHOULDER ROM AND STRENGTH COMPARED TO RIGHT. Reflexes: 2/2 TOMI UE'S. Dural Signs: NEGATIVE TOMI UE'S. Cervical Mvmt Loss: Flex: NIL. Pro: NIL. Ext: MOD. Ret: MOD TO REHANA. RSB: MIN. LSB: MT N. R Rot: MIN. L Rot: MIN. PATIENT DENIES INCREASED PAIN WITH CERVICAL ROM TESTING ALL PLANES - NE. Postural strength: POOR. Palpation: NO ACUTE TENDERNESS OR ASSYMETRICAL TIGHTNESS WITH PALPATION OF TH E TOMI CERVICAL OR SHOULDER REGIONS. OTHER: SEATED CERVICAL DISTRACTION - NE - Goals Goal 1:: DECREASE C/O RIGHT NECK AND UE SX'S Goal Time Frame: 4-6 Weeks Goal 2:: IMPROVE SLEEP, READING AND DRIVING F UNCTION Goal Time Frame: 4-6 Weeks Goal 3:: INSTRUCT IN PROPHYLAXIS Goal Time Frame: 4-6 Weeks - Rehabilitation Potential Rehabilitation Potential: Questionable - Anticipated Interventions Patient/Cli ent Instruction: Educate patient on: Condition, Plan of Care, Risk Factors, Benefits of Fitness Program For the Purpose of:: To improve self management Therapeutic Exercise to Include: Strength training , Body mechanics, Postural training, Passive ROM, Active ROM, Scapular Strength/Stabilization For the Purpose of:: To decrease pain, To increase ROM, To improve muscle performance and motor function, To increase tolerance to activity/condition/position, To improve ability of physical actions for home/community/work/leisure Cryotherapy (ice pack, ice massage): Yes Thermo therapy (hot pack): Yes Ultraso und (thermal/non thermal): Yes For the Purpose of:: To decrease pain, To increase ROM, To improve nutrient delivery to tissue Thank you for the opportunity to evaluate your patient. For Medicare an d Medicare HMO plans, please review the plan of care and approve it. It will need to be FAXED BACK to us at [phone] for Medicare purposes. Please let me know if there are questions or concerns re garding this plan of care. Physician Signature: Date: <Electronically signed by Maliha Rudolph PT, Cert. MDT> 09/28/18 1313 CC: Jessica Corona DO NAZANIN Signed For Medicare only, by signing this I certify the plan of care. Physicians Signature Date 24-Sep-2018 Renal Artery Duplex Result: Comments: See Note; NOTES: [facility] Cardiovascular Services [address] [place] [address] Renal Artery Duplex Ultrasound 09/22/18 0802 MR#: [id number] Acct: [id number] Name: NEISHA TOBAR Rep #: [id number] : 1950 68 From: Ciro Maravilla MD Attending Dr: Jessica Corona DO Status: REG CLI Ordering Dr: Jessica Cornoa DO Date: 09/22/18 Location: [facility] [...] Dictated: 09/22/18 0802 Date Transcribed: 09/24/18 1013 French Binder: Signed 18-Sep-2018 Kidney and Bladder Result: Comments: See Note; NOTES: [facility] Imaging Services [address] [place] [address] Kidney and Bladder MR#: [id number] Acct: [id number] Name: NEISHA TOBAR Rep #: [id number] : 1950 F 68 From: Jorge Holland MD PCP: Jessica Corona DO Status: REG CLI Study: Kidney and Bladder Date of Exam: 09/18/18 Exam# [id number] Ordering Dr: Jessica Corona DO STUDY: RENAL [...] Service support , CC: Jessica Corona DO French Binder: Signed 12-Sep-2018 12 Lead Electrocardiogram Result: Comments: See Note; NOTES: [facility] Cardiovascular Services [address] [place] [address] 12 Lead EKG 09/09/18 0949 MR#: [id number] Acct: [id number] Name: NEISHA TOBAR ep #: [id number] : 1950 68 From: Ian Gudino MD [...] Abnormal ECG Confirmed by TERESE MCKAY, IAN ([id number]), editor managing newspaper [employer]ITY [employer]ILLEGAS ([id number]) on 09/12/2018 11:06:08 AM Referred By: Devora Corona Confirmed By:IAN GUDINO MD 09/12/18 1106 Date Ian Gudino MD CC: Anel Hunter MD; Jessica Chloe SCHROEDER Signed 09-Sep-2018 Emergency Department Summary Result: Comments: See Note; NOTES: [facility] Medical Records Department [address] [place] [address] Emergency Department Summary 09/09/18 0934 MR#: [id number] Acct: [id number] Name: NEISHA TOBAR Rep #: [id number] : 1950 68 From: Anel Hunter MD [...] Hypertension, improved This note was generated with [employer] dictation software. It may contain incorrect words, [...] problems, contact your Primary Care Provider. Call [facility] ([phone]) or report [facility] the [facility] Emergency Room. Call 911 if necessary. 09/09/18 1633 <Electronically signed by Anel Hunter MD> Date Anel Hunter MD Cos igner Signature (If Indicated): Date CC: Jessica Corona DO 09-Sep-2018 Discharge Instruction Result: Comments: See Note; NOTES: [facility] Medical Records Department [address] [place] [address] Discharge Instruction 09/09/18 1203 MR#: [id number] Acct: [id number] Name: Lydia TOBAR Rep #: [id number] : 1950 68 From: Anel Hunter MD PCP: Jessica Corona DO Status: REG ER ED Disposition - Plan for ED Patient: Disposition: Home or Assisted Living Chief Complain t: Hypertension Instructions: ED HTN Established Prescriptions: Amlodipine Besylate [Norvasc] 2.5 mg PO DAILY #30 tablet Clonidine HCl [Catapres] 0.1 mg PO BID PRN #20 tablet PRN Reason: Hypertensive Em ergency Referrals: Chloe,Jessica, DO [Primary Care Provider] - 3-5 Days if not improving What to do if you have Problems For any increased pain, shortness of breath, bleeding, nausea or vomiting, chest pain, or any unexpected problems, contact your Primary Care Provider. Call [facility] ([phone]) or report to the closest Emergency Room. Call 911 if necessary. 09/09/18 1207 < Electronically signed by Anel Hunter MD> Date Anel Hunter MD Cosigner Signature (If Indicated): Date CC: Jessica Corona DO 09-Sep-2018 Brain/Head without Contrast Result: Comments: See Note; NOTES: [facility] Imaging Services [address] [place] [address] Brain/Head without Contrast MR#: [id number] Acct: [id number] Name: NEISHA TOBAR Rep #: [id number] : 1950 F 68 From: Italo Brown DO PCP: Jessica Corona DO Status: REG ER Study: Brain/Head without Contrast Date of Exam: 09/09/18 Exam# [id number] Ordering Dr: Anel Hunter MD [facility]: CT BRAIN WITHOUT CONTRAST REASON FOR [...] CC: Anel Hunter MD; Jessica Corona DO French Binder: Signed 21-Jun-2018 Abd Inc Decub and/or Erect Result: Comments: See Note; NOTES: [facility] Imaging Services [address] [place] [address] Abd Inc Decub and/or Erect MR#: [id number] Acct: [id number] Name: NEISHA TOBAR Rep #: [id number] : 1950 F 68 From: Tapan Gore MD PCP: Jessica Corona DO Status: REG CLI Study: Abd Inc Decub and/or Erect Date of Exam: 06/21/18 Exam# [id number] Ordering Dr: Jud Samaniego Y: X-RAY - [...] , Service support , CC: Jud Samaniego STRONG NITRIC OPERATOR; Jessica Corona DO French Binder: Signed 02-Jun-2018 Cerv Spine 2 or 3 Views Result: Comments: See Note; NOTES: [facility] Imaging Services [address] [place] [address] Cerv Spine 2 or 3 Views MR#: [id number] Acct: [id number] Name: NEISHA TOBAR Rep #: [id number] : 1950 F 68 From: Jamil Paulson MD PCP: Jessica Corona DO Status: REG CLI Study: Cerv Spine 2 or 3 Views Date of Exam: 06/02/18 Exam# [id number] Ordering Dr: Jessica Corona DO UDY: X-RAY [...] Service support , CC: Jessica Corona DO French Binder: Signed 25-May-2018 L/S Spine Min 4 Views Result: Comments: See Note; NOTES: [facility] Imaging Services [address] [place] [address] L/S Spine Min 4 Views MR#: [id number] Acct: [id number] Name: NEISHA TOBAR Rep #: [id number] : 1950 F 68 From: Mikayla Guerrier MD PCP: Jessica Corona DO Status: REG CLI Study: L/S Spine Min 4 Views Date of Exam: 05/25/18 Exam# [id number] Ordering Dr: Addie Mallory STRONG NITRIC OPERATORSteven STUDY: X -RAY - LUMBAR SPINE REASON [...] , CC: DEYSI Mallory; Jessica Corona DO French Binder: Signed 09-May-2018 Dexa Bone Density Study Result: Comments: See Note; NOTES: [facility] Imaging Services [address] [place] [address] Dexa Bone Density Study MR#: [id number] Acct: [id number] Name: NEISHA TOBAR Rep #: [id number] : 1950 F 68 From: Kvng Cutler MD PCP: Jessica Corona DO Status: REG CLI Study: Dexa Bone Density Study Date of Exam: 05/09/18 Exam# [id number] Ordering Dr: Jessica Corona DO STUDY: DUAL [...] Kvng Cutler MD at 8:25 EDT Tel [phone], Service support , CC: Jessica Corona DO French Binder: Signed 14-Feb-2018 MRCP Abdomen without Contrast Result: Comments: See Note; NOTES: [facility] Imaging Services [address] [place] [address] MRCP Abdomen without Contrast MR#: [id number] Acct: [id number] Name: NEISHA TOBAR Rep #: [id number] : 1950 F 68 From: Vj Rajput MD PCP: Jessica Corona DO Status: REG CLI Study: MRCP Abdomen without Contrast Date of Exam: 02/14/18 Exam# [id number] Ordering Dr: Rigo Corona DO STUDY: MR [...] Service support , CC: Jessica Corona DO French Binder: Signed 03-Feb-2018 Abdomen Limited Result: Comments: See Note; NOTES: [facility] Imaging Services [address] [place] [address] Abdomen Limited MR#: [id number] Acct: [id number] Name: NEISHA TOBAR Rep #: [id number] OB: 1950 F 68 From: Kvng Cutler MD PCP: Jessica Corona DO Status: REG CLI Study: Abdomen Limited Date of Exam: 02/03/18 Exam# [id number] Ordering Dr: Jessica Corona DO STUDY: ABDOMINAL [...] Kvng Cutler MD at 13:52 EDT Tel [phone], Service support , CC: Jessica Corona DO French Binder: Signed 31-Jan-2018 SCREENING MAMM (CAD), BILAT Result: Comments: See Note; NOTES: [facility] Imaging Services [address] [place] [address] SCREENING MAMM (CAD), BILAT MR#: [id number] Acct: [id number] Name: NEISHA TOBAR Rep #: [id number] : 1950 F 67 From: Kvng Cutler MD PCP: Jessica Corona DO Status: REG CLI Study: SCREENING MAMM (CAD), BILAT Date of Exam: 01/31/18 Exam# [id number] Ordering Dr: Lidia Corona DO MAMMOGRAPHY - [...] delay biopsy of a clinically suspicious abnormality. [id number] Electronically Signed: Kvng Cutler MD at 14:26 EDT Tel [phone], Service supp ort , CC: Jessica Corona DO French Binder: Signed 28-Aug-2015 Bilat Scrn Digital AND CAD Result: Comments: See Note; NOTES: [facility] Imaging Services [address] [place] [address] Breast Imaging Report MR#: [id number] Acct: [id number] Name: NEISHA TOBAR Rep # : [id number] : 1950 F 65 From: Kvng Cutler MD PCP: Jessica Corona DO Status: REG CLI Study: Bilat Scrn Digital AND CAD Date of Exam: 08/28/15 Exam# [id number] Ordering Dr: Raymond Corona DO MAMMOGRAPHY - [...] sent to the patient by the [facility] within 30 days. Approximately 10% of breast cancers are not detected by mammography. A normal mammogram should not delay biopsy of a clinically suspicious abnormality. Electronically Mirian d: Kvng Cutler MD at 8:05 EDT Tel [phone], Service support [phone], CC: Jessica Corona DO French Binder: Signed 03-Jun-2015 PT Discharge Summary Result: Comments: See Note; NOTES: [facility] [address] [place] [address]. [address] [place], [place] [phone] Fax REHABILITATION SERVICES DISCHARGE SUMMARY MR#: [id number] Acct: [id number] Name: NEISHA TOBAR Rep #: [id number] : 1950 65 From: Sandy Nelson Referring [...] clinic. Sandy Nelson, PT T: NTS JOB: [id number] <Electronically signed by Sandy Nelson > 06/03/15 1726 CC: Signed 26-May-2015 Chest PA and Lateral Result: Comments: See Note; NOTES: [facility] Imaging Services [address] [facility] [address] Radiology Report MR#: [id number] Acct: [id number] Name: NEISHA TOBAR Rep #: [id number] : 1950 F 65 From: Zoila Allen MD PCP: Jessica Corona DO Status: REG CLI Study: Chest PA and Lateral Date of Exam: 05/26/15 Exam# [id number] Ordering Dr: Jud Samaniego STUDY: X-RAY C [...] MD at 12:07 EDT , Service support [phone], RAD /Chest PA and Lateral IMPRESSION: There is a left midlung field calcified granuloma. There is bilateral lower lobe scarring/atelectasis. No radiographic evidence of bronchitis. Electronically Sig kyle: Zoila Allen MD at 12:07 EDT , Service support [phone], CC: Jud Samaniego; Jessica Corona DO French Binder: Signed 13-May-2015 Inital Evaluation - PT Result: Comments: See Note; NOTES: [facility] [address] [place] [address] Fax REHABILITATION SERVICES INITIAL EVALUATION MR#: [id number] Acct: [id number] Name: NEISHA TOBAR Rep #: [id number] : 1950 65 From: Sandy Nelson Referring Dr.: Jud Samaniego Status: REG RCR Insurance: [employer] MEDICARE PPO Eval Date: DATE OF SERVICE: 04/22/2015 REFERRING PHYSICIAN: Jud Samaniego. REFERRING DIAGNOSIS: Back pain. SUBJECTIVE: The patient is a 65-year-old female, who reports to clinic today with a diagnosis of back pain. Marychuy has a history of 2 discectomies in [...] needed. Sandy Nelson, PT T: NTS JOB: [id number] <Electronically signed by Sandy Nelson > 05/13/15 0818 CC: Signed For Medicare only, by signing this I certify the plan of care. Physicians Signature Date 16-Apr-2015 L/S Spine Min 4 Views Result: Comments: See Note; NOTES: [facility] Imaging Services [address] [place] [address] Radiology Report MR#: [id number] Acct: [id number] Name: NEISHA TOBAR Rep #: [id number] : 1950 F 65 From: Rod Pollard DO PCP: Jessica Corona DO Status: REG CLI Study: L/S Spine Min 4 Views Date of Exam: 04/16/15 Exam# [id number] Ordering Dr: Jud Samaniego STUDY: X-RA Y [...] Rod Pollard DO at 16:48 EDT Tel [phone], Service support [phone], RAD/L/S Spine Min 4 Views IMPRESSION: Degenerative ch anges of the spine, as detailed above. Electronically Signed: Rod Pollard DO at 16:48 EDT Tel [phone], Service support [phone], CC: Jud Samaniego; Rigo Corona DO French Binder: Signed 11-Jun-2014 Bilat Scrn Digital & CAD Result: Comments: See Note; NOTES: [facility] Imaging Services [address] [place] [address] Breast Imaging Report MR#: [id number] Acct: [id number] Name: NEISHA TOBAR Rep #: [id number] : 1950 F 64 From: Ian Lamas MD PCP: Jessica Corona DO Status: REG CLI Exam# [id number] Ordering Dr: Jessica Corona DO MAMMOGRAPHY - [...] 17:24 EDT Tel , Ser vice support [phone], CC: Jessica Corona DO French Binder: Signed 29-Oct-2013 Gastric Emptying Study Result: Comments: See Note; NOTES: [facility] Imaging Services [address] [place] [address] Nuclear Medicine Report MR#: [id number] Acct: [id number] Name: NEISHA TOBAR Rep #: [id number] : 1950 F 63 From: Celestine Garza DO PCP: Status: REG CLI Study: Gastric Emptying Study Date of Exam: 10/29/13 Exam# [id number] Ordering Dr: Jessica Corona DO CLINICAL: 63 [...] M.D. at 22:51 EST , Service support [phone], CC: Jessica Corona DO French Binder: Signed Family History Unknown Family Member Name [...] Active Vital Signs Date Test Result Details 0-Fey-467827:05 Pulse 62 /min Comments: Pattern: Regular Respiration [...] kg/m2 Body Surface Area Calculated 1.94 m2 43-Ksh-094349:56 Pulse 65 /min Comments: Pattern: Regular Respiration [...] kg/m2 Body Surface Area Calculated 1.94 m2 84-Akp-31045:24 Comments: recheck 230/100 Temperature 98 f Comments: [...] see. but her last appt was [place] and had a glaucoma test donehearing wml [...] Height 0 in Head Circumference 0.00 cm : Temperature 97.7 f Comments: Method: Oral Pulse [...] 0.00 cm Results Date Description Value Details :45 ALDOSTERONE ([id number]) Comments: PATIENT NOT FASTINGPERFORMED BY: [employer] [address] [id number] Aldosterone 19.6 ng/dL (Normal) Range: 0.0-30.0 Comments: This test was developed and its performance characteristicsdetermined by [employer]. It has not been cleared or approvedby the Food and Drug Administration. :45 RENIN ([id number]) Comments: PATIENT NOT FASTINGPERFORMED BY: [employer] [address] [id number] Renin Activity, Plasma 0.846 {ng/mL/hr} Range: 0.167-5.380 (Normal) Comments: This test was developed and its performance characteristicsdetermined by [employer]. It has not been cleared or approvedby the Food and Drug Administration. 27-Bur-89734:00 METANEPHRINES - URINE (64952) Comments: PATIENT NOT FASTINGPERFORMED BY: [address] [id number] Metanephrine, U,24hr 84 {ug/24_hr} (Normal) Range: 45-290 Comments: (Hypertensive) >17 years 11 months: 35 - 460 Metanephrine, Ur 84 ug/L (Normal) Normetanephr.,U,24h 352 {ug/24_hr} (Normal) Range: 82-500 Comments: (Hypertensive) >17 years 11 months: 110 - 1050 Normetanephrine, Ur 352 ug/L (Normal) 96-Fqe-49915:00 CATECHOLAMINES TOTAL, URINE Comments: PATIENT NOT FASTINGPERFORMED BY: [address] [id number] Information: START 09/14/18 @5AM ([id number]) Dopamine, Ur, 24hr 155 {ug/24_hr} (Normal) Range: 0-510 Dopamine, Urine 155 ug/L (Normal) Comments: Verified by repeat analysis Norepinephrine,U,24h 52 {ug/24_hr} (Normal) Range: 0-135 Norepinephrine, Ur 52 ug/L (Normal) Comments: Verified by repeat analysis Epinephrine, U, 24hr 8 {ug/24_hr} (Normal) Range: 0-20 Epinephrine, Urine 8 ug/L (Normal) Comments: Verified by repeat analysis 80-Dmx-81227:00 URINE VMA (51611) Comments: PATIENT NOT FASTINGPERFORMED BY: [address] [id number] VMA, Urine, 24hr 2.4 {mg/24_hr} (Normal) Range: 0.0-7.5 Comments: This test was developed and its performance characteristicsdetermined by [employer]. It has not been cleared or approvedby the Food and Drug Administration. VMA, Urine 2.4 mg/L (Normal) 28-Vjy-25533:38 Basic Metabolic Profile (BMP) Comments: [facility] [id number] [place], [place], [id number] GAP 7 (Normal) Range: 5-15 CO2 27.0 [...] A.D.A. criteria.Please note revised GLUCOSE reference range ymosazwlu00/02/2018. 07-Sxi-91791:38 CBC W/Diff, Automated Comments: [facility] [address] [place], [place], [id number] Absolute Lymph 1.21 {X10_3/ul} (Normal) Range: 0.83-4.51 [...] 4.2-5.4 WBC 5.8 K/mm3 (Normal) Range: 4.4-11.0 80-Qom-463373:49 Basic Metabolic Profile (BMP) Comments: [facility] [address] [place], [place], [id number] GAP 5 (Normal) Range: 5-15 CO2 30.0 [...] A.D.A. criteria.Please note revised GLUCOSE reference range oqaegufea26/02/2018. 2-Rst-472904:47 URINE KVNG CULTURE-HE COL Comments: PERFORMED BY: LUIS [facility] Ashsny5712 [facility] [id number] Information: [id number] SRC:UR COUNT (78359) Antimicrobial MIHEAD (Normal) Comments: S = Susceptible; [...] Final report Culture,Comprehensive (Abnormal) 21-Jun-20188:17 Urinalysis, Office (46457) UA - LEUKOCYTE ESTERASE Negative (Normal) UA - NITRITE Negative (Normal) URINE UROBILINGN HE TIMED Normal mg/dL (Normal) UA - PROTEIN Negative mg/dL (Normal) UA - PH 7.5 (Normal) UA - BLOOD Negative (Normal) UA - SPECIFIC GRAVITY 1.010 (Normal) UA - KETONES Negative mg/dL (Normal) UA - BILIRUBIN Negative (Normal) UA - GLUCOSE Negative (Normal) 38-Kgr-32684:39 CBC, PLATELETS & AUT DIFF Comments: PATIENT NOT FASTINGPERFORMED BY: [facility] Pakpqf5905 [facility] [id number] ([id number]) Immature Grans (Abs) 0.0 {x10E3/uL} (Normal) Range: [...] 3.77-5.28 WBC 4.8 {x10E3/uL} (Normal) Range: 3.4-10.8 :39 C-REACT PROT HIGH SENS(hsCRP) Comments: PATIENT NOT FASTINGPERFORMED BY: LLLer GetIntent [facility] [id number] ([id number]) C-Reactive Protein, Cardiac 2.22 mg/L (Normal) Range: 0.00-3.00 Comments: Relative Risk for Future Cardiovascular Event Low <1.00 Average 1.00 - 3.00 High >3.00 :39 ESR-F (SED RATE ERYTHROCYTE - Comments: PATIENT NOT FASTINGPERFORMED BY: [facility]Pin[facility] CenterNwohnz6691 [facility] [id number] FEMALE) (70804) Sedimentation Rate-Westergren 9 mm/h (Normal) Range: 0-40 :39 LDH (LD) (LACTATE DEHYDROGENASE) Comments: PATIENT NOT FASTINGPERFORMED BY: [facility]Mon[facility] CenterZkhtse8425 [facility] [id number] (82341) LDH 209 [iU]/L (Normal) Range: 119-226 Hemoglobin A1c 5.5 % (Normal) Comments: PATIENT NOT FASTINGPERFORMED BY: [facility] CenterRwdndz6072 [facility] [id number] 3:06 Range: 4.8-5.6 Comments: . Pre-diabetes: 5.7 - 6.4 Diabetes: >6.4 Glycemic control for adults with diabetes: <7.0 Written Authorization WAR (Normal) Comments: PATIENT NOT FASTINGPERFORMED BY: [facility] Bcigku9872 [facility] [id number] 3:06 Comments: Written Authorization Received.Authorization received from ANNETTE POWELL LPN [id number] by Lidia Reddy 28-Ljt-792536:06 TSH ([id number]) Comments: PATIENT NOT FASTINGPERFORMED BY: [facility] Xezstf7788 [facility] [id number] TSH 2.370 {uIU/mL} (Normal) Range: 0.450-4.500 88-Wvh-536387:06 METABOLIC PANEL, COMPREHENSIVE Comments: PATIENT NOT FASTINGPERFORMED BY: [facility] Rmhnib3706 [facility] [id number] (22883) ALT (SGPT) 19 [iU]/L (Normal) Range: 0-32 [...] 8-27 Glucose 102 mg/dL (Abnormal) Range: 65-99 13-Cqa-082032:06 CBC W/AUTO DIFF WBC (22513) Comments: PATIENT NOT FASTINGPERFORMED BY: [facility] CenterZqanfa1195 [facility] [id number] Immature Grans (Abs) 0.0 {x10E3/uL} (Normal) Range: [...] (Normal) Range: 3.4-10.8 :56 Free T3 Comments: [facility] [address]. [place], [id number] FREE T3 2.7 pg/mL (Normal) Range: 2.18-3.98 :56 Lipid Profile Comments: [facility] [address]jjl[address]. [place], [phone] VLDL 34 mg/dL (Normal) Range: 5-40 LDL [...] mg/dL High Risk :56 Liver Profile Comments: [facility] [address]oy[address] [place], [id number] ; ov 03/20 D BILI 0.12 mg/dL (Normal) Range: 0.00-0.30 T BILI 0.50 mg/dL (Normal) Range: 0.20-1.00 ALT 24 U/L (Normal) Range: 13-56 ALK P 67 U/L (Normal) Range: 45-117 AST 19 U/L (Normal) Range: 15-37 GLOB 3.7 g/dL (Normal) Range: 2.2-4.2 ALB 3.8 g/dL (Normal) Range: 3.2-5.0 T PROT 7.5 g/dL (Normal) Range: 6.4-8.2 :56 T4 Free Direct Comments: [facility] [address]biqa[address] [place], [id number] T4 FREE DIRECT 0.97 ng/dL (Normal) Range: 0.76-1.46 78-Rpo-68243:56 Thyroid Stim Hormone (TSH) Comments: [facility] Enimlnlzsg48[address] [place], [address] TSH 3.42 {uIU/mL} (Normal) Range: 0.358-3.74 2-Afb-880156:52 GGTP 30 U/L (Normal) Comments: [facility] Qtjqbrcrgn4684 [address] [place], [address] Range: 5-55 5-Rqp-766836:52 Liver Profile Comments: [address] [place], [address] D BILI 0.15 mg/dL (Normal) Range: 0.00-0.30 T BILI 1.10 mg/dL (Abnormal) Range: 0.20-1.00 ALT 31 U/L (Normal) Range: 12-78 ALK P 61 U/L (Normal) Range: 45-117 AST 21 U/L (Normal) Range: 15-37 GLOB 3.8 g/dL (Normal) Range: 2.2-4.2 ALB 3.8 g/dL (Normal) Range: 3.4-5.0 Comments: Please note revised Albumin AND Globulin reference rangeeffective 2017. T PROT 7.6 g/dL (Normal) Range: 6.4-8.2 4-Ctl-428662:36 Bilirubin, Direct Comments: LIVER AND GGTP FOR [facility] [address] [place], [address] D BILI 0.14 mg/dL (Normal) Range: 0.00-0.30 :36 CBC W/Diff, Automated Comments: LIVER AND GGTP FOR [facility] Hqvmbnyata0323 [place], [id number] Absolute Lymph 1.45 {X10_3/ul} (Normal) Range: 0.83-4.51 [...] 4.2-5.4 WBC 6.4 K/mm3 (Normal) Range: 4.4-11.0 3-Lff-065123:36 Comprehensive Metabolic Profil Comments: LIVER AND GGTP FOR [facility] FOR [facility] [address]jiks[address] Eliezer [place], [place], [id number] GAP 9 (Normal) Range: 5-15 CO2 27.0 [...] 7-18 GLU 91 mg/dL (Normal) Range: 70-110 4-Omb-190001:36 GGTP 22 U/L (Normal) Comments: LIVER AND GGTP FOR [facility] Njnqugrpip8858 [facility]. [place], [place], [phone] Range: 5-55 6-Jok-056224:36 Lipid Profile Comments: LIVER AND GGTP FOR [facility] [address] [place], [place], [address] VLDL 56 mg/dL (Abnormal) Range: 5-40 LDL [...] 200-240 mg/dL Borderline >240 mg/dL High Risk 2-Dmd-538976:36 Microalb:Creat Ratio,Random UR Comments: LIVER AND GGTP FOR [facility] FOR [facility] [address] [place], [place], [address] MALB:CREAT 38.1 {mg/g_CRE} (Abnormal) MICROALBUMIN,UR 43.8 mg/L (Normal) UR CREAT 115.00 mg/dL (Normal) 0-Auj-854689:36 Thyroid Stim Hormone (TSH) Comments: LIVER AND GGTP FOR [facility] FOR [facility] Popcgiiths[address] El[address] [place], [phone] TSH 4.13 {uIU/mL} (Abnormal) Range: 0.358-3.74 :36 Urinalysis, Complete Comments: LIVER AND GGTP FOR [facility] FOR [facility] was Urine Obtained? CLEAN [facility] [address] [place], [place], [address] HYALINE CAST 0-5 SEEN {/lpf} Range: 0-5 [...] BIOPSY (CHOOSE SITE) See Note (Normal) Comments: [facility] [address] [place], [place], [address] 0:00 Comments: Patient: NEISHA TOBAR : 1950 (66/F) Acct Num: [id number] Phys: Steve Richard Unit Num: [id number] Loc: LABSPEC Specimen: [id number] Received: 02/11/16 - 0754 Spec Type: COLON BX TISSUES TISSUES: GROSS DESCRIPTION Received is one container labeled with the patient name and designated biopsy polyp right colon. The specimen consists of multiple irre gular fragments of light ramirez soft tissue that in aggregate measure 0.2 x 0.1 x 0.1 cm. The specimen is totally submitted in one cassette. / AM:chris 02/10/16 TC:5 CPT:20051 HEADER OPERATION: Colon oscopy with biopsy PRE-OP DIAGNOSIS: High-risk screen/polyp TISSUE SUBMITTED: Biopsy, polyp, right colon - rule out adenoma MICROSCOPIC DESCRIPTION Slides are reviewed. MICROSCOPIC DIAGNOS IS Right colon polyp, biopsy: Hyperplastic polyp. AM:crow 02/11/16 Signed Samuel Curtis 02/11/16 <signature on file> C difficile Toxins A+B, Negative (Normal) Comments: PATIENT NOT FASTINGPERFORMED BY: LLLer Iqenjk1645 [facility] ContentFormerly [facility] [id number] 3:19 EIA Cryptosporidium EIA Negative (Normal) Comments: PATIENT NOT FASTINGPERFORMED BY: [employer] Nehanv7780 Quill ContentFormerly [facility] [id number] 3:19 6-Vqv-732282:19 Giardia, EIA, Ova/Parasite Comments: PATIENT NOT FASTINGPERFORMED BY: [employer] Wwjekw4862 SarabiaCallerAds LimitedFormerly [facility] [id number] Giardia lamblia Ag, Negative (Normal) EIA Result 1 NOCP (Normal) Comments: No ova, cysts, or parasites seen. Ova + Parasite Exam Final report Comments: These results were obtained using wet preparation(s) and trichromestained smear. This test does not include testing for Cryptosporidiumparvum, Cyclospora, or Microsporidia. (Normal) : Occult Blood, Fecal, Negative (Normal) Comments: PATIENT NOT FASTINGPERFORMED BY: [facility]6370 [facility] [id number] 19 IA :19 Stool Culture Comments: PATIENT NOT FASTINGPERFORMED BY: [address] [id number] Information: SRC:ST STOOL E coli Shiga Toxin EIA Negative (Normal) Result 1 NCI (Normal) Comments: No Campylobacter species isolated. Campylobacter Culture Final report (Normal) Result 1 NSS (Normal) Comments: No Salmonella or Shigella recovered. Salmonella/Shigella Screen Final report (Normal) :19 White Blood Cells (WBC), Comments: PATIENT NOT FASTINGPERFORMED BY: [facility]6370 [facility] [id number] Stool Result 1 NWBC (Normal) Comments: No white blood cells seen. White Blood Cells (WBC), Final report (Normal) Stool :54 CBC W/AUTO DIFF WBC Comments: PATIENT NOT FASTINGPERFORMED BY: [facility]6370 [facility] [id number] Information: [id number] ([id number]) Immature Grans (Abs) 0.0 {x10E3/uL} (Normal) Range: [...] PANEL, COMPREHENSIVE Comments: PATIENT NOT FASTINGPERFORMED BY: [facility] Qjslhc3327 [facility] [id number] (88182) ALT (SGPT) 19 [iU]/L (Normal) Range: 0-32 [...] 99 mg/dL (Normal) Range: 65-99 :54 TSH (60002) Comments: PATIENT NOT FASTINGPERFORMED BY: [facility] Apxodr4138 [facility] [id number] TSH 2.210 {uIU/mL} (Normal) Range: 0.450-4.500 :05 Urinalysis, Office (26336) UA - LEUKOCYTE ESTERASE Negative (Normal) UA [...] CHOL 310 mg/dL (Abnormal) Comments: <200 mg/dL Pfrzjosgi660-304 mg/dL Borderline>240 mg/dL High Risk TRIG 185 [...] (Normal) UCLAR Clear (Normal) UCOL Yellow (Normal) 12-Msg-635391:26 HgA1C , Office (20733) HgA1C , Office 5.7 % (Normal) Range: [...] CHOL 286 mg/dL (Abnormal) Comments: <200 mg/dL Qztrqqeie402-166 mg/dL Borderline>240 mg/dL High Risk :14 MIACRE tMICROCREAT <TEST NOT PERFORMED> {mg/g_CRE} (Normal) MIALB < 5.0 mg/L (Normal) CREU 18.4 mg/dL (Normal) :14 TSH 3.54 {uIU/mL} (Normal) Range: 0.358-3.74 :14 [facility] 0 SEEN {/hpf} (Normal) UBAC 0 [...] (Normal) UCLAR Clear (Normal) UCOL Yellow (Normal) 4-Wrc-340963:43 BILAT SCRN DIGITAL & CAD Radiology Report [...] Cutler M.D.January 23, 2013 at 12:21:32 PM [id number] Signed GP/GP If you are the referring physician and would like to consult with theradiologist who provided this interpretation, please contact Letty Mukherjee at [phone]. If this radiologist is unavailable, youwill be directed to another radiologist to as sist. If you are a patient with a question regarding this report, pleasecontactyour referring physician directly. Professional Interpretation Provided By: [facility], Phone ,Fax These documents contain legally protected [...] destructionofthese documents. Dictated on 01/23/13 1143 by Danny Cutler MDscribed on 01/24/13 171 by ITS IMPORTSign by Kvng Cutler MD on 03/06/13 1713 Sign by: Kvng Cutler MD :57 ABDOMEN/PELVIS [...] narrowing at the L4, L5, and L5, M4iktrvc. IMPRESSION:Sigmoid diverticulosis. Signed:Kvng Cutler M.D.September 01, 2012 at 1:13:05 PM [id number] [phone] Signed GP/GP If you are the referring physician and would like to consult with theradiologist who provided this interpretation, please contact Letty Mukherjee at . If this radiologist is unavailable, youwill be directed to another radiologist to assist. If you are a patient with a question regarding this report, pleasecontactyour referring physician directly . Professional Interpretation Provided By: [facility], Phone , These documents contain legally protected [...] 09/01/12 1323 Sign by: Kvng Cutler MD 25-Ibo-343685:53 CRE GFRAA 109 mL/min (Normal) GFR 90 mL/min (Normal) CREAT 0.7 mg/dL (Normal) Range: 0.6-1.0 10-Ksc-212856:41 KNEE,4 OR MORE VIEWS Radiology Report See [...] regarding t his report, please call our 58Q3vyrvptm line @ Dictated on 01/31/12 1436 by Alec MCKAY,GabrieleTranscribed on 02/01/12 1327 by ITS IMPORTSign by Alec MCKAY,Kvng on 02/01/12 13 28 Sign by: Alec MCKAY,Kvng 2-Idi-652402:36 CULTURE, URINE URINE CULTURE See Note {CFU/mL} (Normal) Comments: COLONY COUNT 25,000-50,000 ORGANISM 1: MIXED GRAM POSITIVE ORGANISMS :17 Urinalysis, Office (93670) UA - BILIRUBIN Negative (Normal) UA - [...] :34 TSH 3.22 {uIU/mL} (Normal) Range: 0.358-3.74 60-Rfh-721243:23 URINE KVNG CULTURE-IDENTIFICATN Comments: PATIENT NOT FASTINGPERFORMED BY: [facility] CenterLmjkto8009 [facility] [id number] Information: [id number] (66504) Antimicrobial MIHEAD (Normal) Comments: S = Susceptible; [...] primarily for treating urinary tract infections. (CLSI, V545-Y55,2009) Result 1 Klebsiella pneumoniae Comments: 3,000 Colonies/mL . (Normal) Urine Final report (Normal) Culture,Comprehensive 36-Yek-16091:52 Urinalysis, Office (20420) UA - BILIRUBIN Negative (Normal) UA - BLOOD Negative (Normal) UA - GLUCOSE Negative (Normal) UA - KETONES Negative mg/dL (Normal) UA - LEUKOCYTE ESTERASE Small (Normal) UA - NITRITE Negative (Normal) UA - PH 5.0 (Normal) UA - PROTEIN Negative mg/dL (Normal) UA - SPECIFIC GRAVITY 1.015 (Normal) URINE UROBILINGN HE TIMED Normal mg/dL (Normal) 6-Yfi-746121:44 TRANSVAGINAL NON- Radiology Report See Note (Normal) Comments: Exam Number: [id number] LINICAL:This is a 60-year-old female patient with [...] were not visualized. Reported By: KVNG CUTLER 8-Brg-706713:24 PELVIC (NON ) Radiology Report See Note (Normal) Comments: Exam Number: [id number] LINICAL:This is a 60-year-old female patient with [...] were not visualized. Reported By: KVNG CUTLER 40-Uhr-268246:53 URINE KVNG CULTURE-HE COL Comments: PATIENT NOT FASTINGPERFORMED BY: [facility] CenterSqccuy2579 [facility] [id number] Information: SRC:URT [id number] COUNT (91631) Result 3 BETAGB (Normal) Comments: Beta hemolytic [...] primarily for treating urinary tract infections. (CLSI, S377-O43,2009) Result 2 Klebsiella pneumoniae Comments: 100 Colonies/mL . (Normal) Urine Final report (Normal) Culture,Edna rankin :50 Urinalysis, Office (30492) UA - LEUKOCYTE ESTERASE Trace (Normal) UA - NITRITE Negative (Normal) URINE UROBILINGN HE TIMED Normal mg/dL (Normal) UA - PROTEIN Negative mg/dL (Normal) UA - PH 5.0 (Normal) UA - BLOOD Non Hemolyzed Trace (Normal) UA - SPECIFIC GRAVITY 1.010 (Normal) UA - KETONES Negative mg/dL (Normal) UA - BILIRUBIN Negative (Normal) UA - GLUCOSE Negative (Normal) 1-Ljp-673643:00 Urinalysis, Office (23348) UA - LEUKOCYTE ESTERASE Trace (Normal) UA [...] Comments: GLU,2HPPG 75gm GLUC PPG GLUP from 0902:O56067M. :34 CBC, EMPLOYEE MCH[facility] 34.4 g/dL (Normal) [...] CHOL 283 mg/dL (Abnormal) Comments: <200 mg/dL Lsiskwqkg839-249 mg/dL Borderline>240 mg/dL High Risk HDL 53 [...] Report See Note (Normal) Comments: Exam Number: [id number] CLINICAL:This is a 60-year-old female patient with [...] of the thyroid. Reported By: KVNG CUTLER 47-Gnq-48950:10 COLON BX P-COLBX (Normal) Comments: OPERATIONColonoscopy with biopsyPRE-OPERATIVE DIAGNOSISDiarrheaPOST- OPERATIVE DIAGNOSISRule out microscopic colitisTISSUE SUBMITTEDA - Right colon biopsy, B - Left colon biopsyMICROSCOPIC DIAGNOSISA. R ight colon, biopsy:Fragments of colonic mucosa, no pathologic diagnosis.B. Left colon, biopsy:Fragments of colonic mucosa, no pathologic diagnosis.SJ:chris 03/20/10GROSS DESCRIPTIONA - [facility] labeled with patient name and number [...] is totally submitted in one cassette. / SJ:crhis 03/19/10TC:4REPORT SIGNED: SHREE WEINSTEIN 03/20/1010-Feb-201064-Spy-794180:08 KNEE,4 OR MORE VIEWS (MT) Radiology Report See Note (Normal) Comments: Exam Number: [id number] CLINICAL:Pain X-RAY EXAMINATION LEFT KNEE TECHNIQUE:Four views of the knee. COMPARISON:None. FINDINGS:Normal visualized distal femur. Normal visualized proximal tibia. Normal visu alized proximal fibula. There is minimal narrowing of the medial femorotibial compartment.Normal lateral femorotibial compartment. Normal patellofemoral articulation. There is no demonstrated jointeffu tamia. There is no demonstrated soft tissue swelling. IMPRESSION:Chronic degenerative changes, as discussed above. Reported By: SURINDER WOODRUFF 77-Bgy-884814:00 SPINE, LUMBAR W/W/O CONTRAST Radiology Report See Note (Normal) Comments: Exam Number: [id number] CLINICAL:59-year-old female with displaced lumbar disk low [...] Reported By: LANDY HIGHTOWER M.D. :03 TRAN-D 164366 TRAN-DIRECT SeeNote (Normal) Comments: Result: Negative Performed At: [facility] [address] [id number] At: [facility]6370 [place], [place] [id number] :03 ANTI-CCP 799378 6 {units} (Normal) Range: 0-19 Comments: Negative [...] Report See Note (Normal) Comments: Exam Number: [id number] BILATERAL SCREENING MAMMOGRAM COMPARISONComparison is made to [...] The mammogramswere also examined with computer-aided detection software(Bitbar.). Reported By: CHUCK PEREZ M.D. 06-Qpa-382259:46 SHOULDER,MIN 2 VIEWS Radiology Report See Note (Normal) Comments: Exam Number: [id number] RIGHT SHOULDER HISTORYShoulder pain. TECHNIQUEFour views of [...] normal variant. Reported By: LUIS JORGE M.D. 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 Endocervical and/or squamous metaplasticcells (endocervical component) are present. COMM . (Normal) DIAGN Comment (Normal) Comments: NEGATIVE FOR INTRAEPITHELIAL LESION AND MALIGNANCY. HPV RFLX Comment (Normal) Comments: The HPV DNA reflex criteria were not met with this specimenresult therefore, no HPV testing was performed. .Performed At: [facility] Psdwd9823 [place], [place] [id number] PAPSMR Comment (Normal) Comments: The Pap smear is a screening test designed to aid in thedetection of pre-malignant and malignant conditions of theuterine cervix. It is not a diagnostic procedure andshould not be used as the sole mean s of detecting cervicalcancer. Both false-positive and false-negative reports dooccur. . 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) Comments: Cristal Pisano [employer] Sales Senior Executive Plan of Care Name Dates Details Instructions [...] Diagnostic Tests Indication: Headache Headache : Reviewed Supervisor Frame Assembly Letter Indication: Headache Hypertensive heart disease without [...] Indication: Epigastric pain Epigastric pain : Reviewed Supervisor Frame Assembly Letter Indication: Epigastric pain Epigastric pain : [...] reflux disease) Planned Observations Metabolic Panel, Basic (51974)Indication: Therapeutic drug monitoring On: :13 Request Comments: give to jud to review HEPATIC FUNCTION PANEL (00420)Indication: Common bile duct dilation On: :18 Request HEPATIC FUNCTION PANEL (30634)Indication: Epigastric pain On: 50-Pqx-825507:51 Request LIPID PANEL (48439)Indication: Hypercholesteremia On: :25 Request TSH (23748)Indication: Abnormal TSH On: :21 Request T4, FREE (THYROXINE) (50786)Indication: Abnormal TSH On: : Request T3, FREE (TRIDOTHYRONINE) (47764)Indication: Abnormal TSH On: :21 Request TSH (75711)Indication: Hypercholesteremia On: :14 Request URINALYSIS, W/ MICRO (46099)Indication: Hypertensive heart disease without congestive heart failure On: :14 Request MICROALBUMIN: CREATININE RATIO (96500) AND (44533)Indication: Hypertensive heart disease without congestive heart failure On: :14 Request METABOLIC PANEL, COMPREHENSIVE (50972)Indication: Hypertensive heart disease without congestive heart failure On: :14 Request LIPID PANEL (16066)Indication: Hypercholesteremia On: :14 Request CBC W/AUTO DIFF WBC (02012)Indication: Hypertensive heart disease without congestive heart failure On: :14 Request Cryptosporidium Sp Ag, Direct Fluorescent Ab (77387)Indication: Diarrhea On: :44 Request GIARDIA LAMBLIA ANTIBODY (33629)Indication: Diarrhea On: :43 Request C-DIFFICILE, STOOL (57086)Indication: Diarrhea On: 43 Request OVA & PARASITE DIR SMEAR (61085)Indication: Diarrhea On: :43 Request OCCULT BLOOD FECES SCREEN (28357)Indication: Diarrhea On: :43 Request LEUKOCYTE COUNT, FECAL (67100)Indication: Diarrhea On: 43 Request KVNG CULTURE-STOOL (83903)Indication: Diarrhea On: 22-Oct-20159:43 Request FECAL OCCULT HGB ASSAY- tubes sent home (69802)Indication: Encounter for Medicare annual wellness exam On: :28 Request TSH (47320)Indication: Hypertensive heart disease without congestive heart failure On: 43-Qgw-844670:27 Request URINALYSIS, W/ MICRO (36922)Indication: Hypertensive heart disease without congestive heart failure On: 95-Iic-931120:27 Request MICROALBUMIN: CREATININE RATIO (70785) AND (50971)Indication: Hypertensive heart disease without congestive heart failure On: 61-Dkm-162320:27 Request METABOLIC PANEL, COMPREHENSIVE (84018)Indication: Hypertensive heart disease without congestive heart failure On: : Request CBC WITH MANUAL DIFF (72278)Indication: Hypertensive heart disease without congestive heart failure On: 39-Bnz-370613:27 Request LIPID PANEL (39485)Indication: Hypercholesteremia On: 05-Feb-2014 Request URINE KVNG CULTURE-HE COL COUNT (17784)Indication: Urinary frequency On: :17 Request Magnesium (94153)Indication: Hypopotassemia On: 83-Mgi-193977:50 Request Metabolic Panel, Basic (40640)Indication: Hypopotassemia On: 65-Bqq-145854:49 Request TSH (74596)Indication: Hypercholesteremia On: :09 Request URINALYSIS, W/ MICRO (78089)Indication: Hypertensive heart disease without congestive heart failure On: :09 Request MICROALBUMIN: CREATININE RATIO (82872) AND (40298)Indication: Hypertensive heart disease without congestive heart failure On: :09 Request METABOLIC PANEL, COMPREHENSIVE (73130)Indication: Hypertensive heart disease without congestive heart failure On: :09 Request LIPID PANEL (73695)Indication: Hypercholesteremia On: :09 Request CBC WITH MANUAL DIFF (09149)Indication: Hypertensive heart disease without congestive heart failure On: :09 Request URINE KVNG CULTURE-HE COL COUNT (44687)Indication: Dysuria On: 7-Yse-419480:00 Request Glucose, PP/2 Hour (73777)Indication: Other specified abnormal findings of blood chemistry On: :21 Request HEPATIC FUNCTION PANEL (28897)Indication: Hypercholesteremia On: :57 Request LIPID PANEL (10854)Indication: Hypercholesteremia On: :57 Request Comments: DO IN 3 MONTHS Glucose, PP/2 Hour (77113)Indication: Other specified abnormal findings of blood chemistry On: 57 Request TRAN (ANTINUCLEAR ANTIBODY) (67787)Indication: Pain in unspecified joint On: Request C-REACTIVE PROTEIN (59703)Indication: Pain in unspecified joint On: Request CBC WITH MANUAL DIFF (49965)Indication: Pain in unspecified joint On: Request CCP ANTIBODY (41451)Indication: Pain in unspecified joint On: Request METABOLIC PANEL, COMPREHENSIVE (85196)Indication: Pain in unspecified joint On: Request RHEUMATOID FACTOR-QUANT (12880)Indication: Pain in unspecified joint On: : Request SED RATE ERYTHROCYTE (19592)Indication: Pain in unspecified joint On: Request TSH (88743)Indication: Pain in unspecified joint On: Request FECAL OCCULT- Tubes sent home (70618)Indication: Benign essential hypertension On: Request TSH (54456)Indication: Benign essential hypertension On: Request URINALYSIS W/O MICRO (33060)Indication: Benign essential hypertension On: Request MICROALBUMIN: CREATININE RATIO ([id number]) AND ([id number])Indication: Benign essential hypertension On: Request METABOLIC PANEL, COMPREHENSIVE ([id number])Indication: Benign essential hypertension On: Request LIPID PANEL ([id number])Indication: Benign essential hypertension On: : Request CBC WITH MANUAL DIFF ([id number])Indication: Benign essential hypertension On: : Request HEPATIC FUNCTION PANEL ([id number])Indication: Hypercholesteremia On: [id number]-Huk-[id number] Request Comments: DO IN 3 MONTHS LIPID PANEL ([id number])Indication: Hypercholesteremia On: [id number] Request URINALYSIS W/O MICRO ([id number])Indication: Hypertension On: :51 Request TSH ([id number])Indication: Hypertension On: :51 Request MICROALBUMIN URINE QUANT ([id number])Indication: Hypertension On: :51 Request METABOLIC PANEL, COMPREHENSIVE ([id number])Indication: Hypertension On: :50 Request LIPID PANEL ([id number])Indication: Hypertension On: :50 Request CBC WITH MANUAL DIFF ([id number])Indication: Hypertension On: :50 Request Planned Encounters Medical; 2 Week FU - On: 10-Oct-2018 13:30 [facility] Jessica Corona DO, DO, Kathleen Planned Procedures Nuclear Stress Test/Stress On: 25-Sep-2018 Intent SPECT/AdenosineBy: Jessica Corona DO, DO, Kathleen Renal Duplex ScanBy: Chloe SCHROEDER, On: 13-Sep-2018 Intent Jessica Proctor DO Ultrasound - RenalBy: Chloe SCHROEDER, On: 13-Sep-2018 Intent Jessica Proctor DO X-RAY OF ABDOMEN, FLAT PLATE AND ERECT On: 21-Jun-2018 Intent ([id number])By: Jud Samaniego CNP X-RAY OF CERVICAL SPINE, TWO VIEWS On: 02-Jun-2018 Intent ([id number])By: Jessica Corona DO, DO, Kathleen Radiology - Lumbar SpineBy: Mohamud, On: 25-May-2018 Intent Addie ELECTROCARDIOGRAM, COMPLETE (ECG) On: 04-May-2018 Intent ([id number])By: Jessica Corona DO Comments: nsr / no acute chg - pvc present and IVCD Jessica SCHROEDER ULLS-GK-CTND BEHAVIORAL COUNSELING FOR On: 28-Apr-2018 Intent OBESITY, 15 MINUTES ([id number])By: Jessica Corona DO, DO, Kathleen DEXA SCAN AXIAL SKELETON ([id number])By: On: 28-Apr-2018 Intent Jessica Corona DO, DO, Kathleen MRCP (MAGNETIC RESONANCE On: 06-Feb-2018 Intent CHOLANGIOPANCREATOGRAPHY) ([id number])By: Jessica Corona DO, DO, Kathleen ULTRASOUND OF UPPER ABDOMEN ([id number])By: On: 27-Jan-2018 Intent Jessica Corona DO, DO, Kathleen Comments: attention size of CBD SCREENING DIGITAL TOMOSYNTHESIS OF On: 09-Jan-2018 Intent BREAST ([id number])By: Addie Odell LPN ELECTROCARDIOGRAM, COMPLETE (ECG) On: 03-Aug-2017 Intent ([id number])By: Jessica Corona DO Comments: sinus vinicio no new acute chg , Jessica MAMMOGRAM BREAST BILATERAL SCREENING On: 03-Jul-2015 Intent DIGITAL ([id number])By: Jessica Corona DO, DO, Kathleen Radiology - ChestBy: Jud Saamniego CNP On: 26-May-2015 Intent Aerosol Treatment ([id number])By: Danette SPRINGER, On: 26-May-2015 Intent Mildred Aerosol Treatment ([id number])By: Froylan KENT, On: 05-May-2015 Intent Sandy Radiology - Lumbar SpineBy: Danette SPRINGER, On: 15-Apr-2015 Intent Jud Gunter Toradol Injection, 30 mg ([id number])By: On: 11-Apr-2015 Intent Jud Samaniego CNP ADMINISTRATION OF PNEUMOCOCCAL VACCINE On: 10-Jun-2014 Intent ([id number])By: Jessica Coroan DO, DO, Kathleen PNEUM VAC ADLT/IMUMNOSPR, SBC/INTRM On: 10-Jun-2014 Intent ([id number])By: Jessica Corona DO Comments: lot: [id number]: 03/22/15site/route: L del/IMamt: 0.5mLVIS signed when applicableJULIEN Rod DO, Kathleen EQUS-WP-HAWW BEHAVIORAL COUNSELING FOR On: 10-Jun-2014 Intent OBESITY, 15 MINUTES ([id number])By: Jessica Corona DO, DO, Kathleen BILATERAL MAMMOGRAMS ([id number])By: Chloe On: 04-Jun-2014 Intent Jessica SCHROEDER DO, Kathleen EKG ([id number])By: Jessica Corona DO On: 04-Feb-2014 Intent Jessica Corona DO Comments: nsr no acute cg Eprescribed prescriptions ([id number])By: On: 16-Nov-2013 Intent Jessica Corona DO, DO, Kathleen gastric emptying studyBy: Chloe SCHROEDER, On: 10-Oct-2013 Intent Jessica Proctor DO FLU VAC, SPLIT, >3 YEARS, INTRAMUSC On: 06-Sep-2013 Intent ([id number])By: Addie Odell LPN Comments: Lot:[id number]:6.14Amt:0.5mlRoute:IMSite: L DltdGiven By: DONTE FontenotVIS signed ADMINISTRATION OF INFLUENZA VIRUS On: 06-Sep-2013 Intent VACCINE ([id number])By: Addie Odell LPN EKG ([id number])By: Jessica Corona DO On: 26-Mar-2013 Intent Jessica Corona DO Comments: nsr no acute ischemic changes/ borderline LVH Eprescribed prescriptions ([id number])By: On: 26-Mar-2013 Intent Manreba Viola Eprescribed prescriptions ([id number])By: On: 23-Feb-2013 Intent ManShaye brittonsea MAMMOGRAM, SCREENING, BOTH BREASTS On: 19-Jan-2013 Intent ([id number])By: Jessica Corona DO, DO, Kathleen CT - Abdomen & Pelvis (IV Contrast On: 28-Aug-2012 Intent Needed)By: Jessica Corona DO, DO, Kathleen Eprescribed prescriptions ([id number])By: On: 28-Aug-2012 Intent Addie Odell LPN DRAIN/INJECT, JOINT/BURSA ([id number])By: On: 25-Feb-2012 Intent Jessica Corona DO, DO, Kathleen Comments: inject 2 cc marcaine 1 cc kenolog Radiology - Knee - RightBy: Chloe SCHROEDER, On: 31-Jan-2012 Intent Jessica Corona DOJessica Eprescribed prescriptions ([id number])By: On: 25-Oct-2011 Intent Jessica Corona DO, DO, Kathleen TDAP VACCINE >7 IM ([id number])By: Chloe On: 02-Jul-2011 Intent Jessica SCHROEDER DO, Kathleen Comments: 0.5cc given im rt dltd lot [id number] exp 08-11-13 EKG ([id number])By: Jessica Corona DO On: 01-Feb-2011 Intent Jessica Corona DO Comments: nsr no acute changes-- borderline LVH -- but seen on echo best Bio Z ([id number])By: Jessica Corona DO On: 01-Feb-2011 Intent Jessica [...] On: 18-Aug-2009 Intent Jessica Proctor DO EKG ([id number])By: Jessica Corona DO On: 18-Aug-2009 Intent Jessica Corona DO Comments: nsr no acute changes Pulse Oximetry ([id number])By: Chloe SCHROEDER On: 05-Mar-2009 Intent Jessica Proctor DO Comments: 93% RA Aerosol Treatment ([id number])By: Chloe SCHROEDER On: 05-Mar-2009 Intent Jessica Proctor DO Comments: better air exchange no wheeze Solu- Medrol Injection, 125mg On: 05-Mar-2009 Intent ([id number])By: Jessica Corona DO Comments: injection given in left glutues alvarado. Pt tolerated well. [id number] Jessica SCHROEDER EKG ([id number])By: Jessica Corona DO On: 25-Feb-2008 Intent Jessica Corona DO Comments: nsr no acute ischemic changes Kenalog Injection, 10 mgm ([id number])By: On: 14-Apr-2007 Omayra West MD Kenalog Injection, 10 mgm ([id number])By: On: [...] failure Hypercholesteremia : DISCONTINUED - LIPID PANEL ([id number]) Indication: Hypercholesteremia Hypercholesteremia : DISCONTINUED - TSH ([id number]) Indication: Hypercholesteremia Hypertensive heart disease without congestive heart failure : DISCONTINUED - URINALYSIS, W/ MICRO ([id number]) Indication: Hypertensive heart disease without congestive heart failure Hypertensive heart disease without congestive heart failure : DISCONTINUED - MICROALBUMIN: CREATININE RATIO ([id number]) AND ([id number]) Indication: Hypertensive heart disease without congestive heart failure Hypertensive heart disease without congestive heart failure : DISCONTINUED - METABOLIC PANEL, COMPREHENSIVE ([id number]) Indication: Hypertensive heart disease without congestive heart failure Hypertensive heart disease without congestive heart failure : DISCONTINUED - CBC WITH MANUAL DIFF ([id number]) Indication: Hypertensive heart disease without congestive heart [...] are helping. 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 The patient has noticed [...]
--- OUTSIDE RECORDS SUMMARY | 2018-12-17 17:05 | XMS RPT_ITS | Continuity of Care Document ---
:1950 Author Organization [facility] Address [address] [place] [address] Phone Care Team Providers Name Role Phone Jessica Corona DO Unavailable Marcy Allen Unavailable Huber MCKAY, Dr. Benitez Unavailable [facility], [facility] Unavailable DONTE Odell Unavailable Unavailable Emily [...] of colon) (Z12.11, V76.51) Comments: scope 2016- [facility] 2103 Status: Active Common bile duct [...] Start : 25-May-2018 End : 28-May-2018 Inactive Comments:HCWDIFrdsqbxe-787Bxcssbtn-521Qfidftntk-000OD Agig-851DB-Vkkqwxya of Right Side (M54.31)#Three CELEBREX, 200MG (Oral [...] Comments: improvign for cough and sx at [facility] -- try cont albluterol, do muciinex [...] Stress Report Result: Comments: See Note; NOTES: [facility] Cardiovascular Services [address] [place] [address] MR#: [id number] Acct: [id number] Name: NEISHA TOBAR Rep #: [id number] : 68 From: Baron Gonzalez MD Primary [...] DO Date Dictated: 10/02/188 Date Transcribed: 10/02/181447 Chief Ii Dispatcher: CO Signed 28-Sep-2018 Inital Evaluation (1) - PT Result: Comments: See Note; NOTES: [facility] Physical Therapy [facility] 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 HTN. GERD. [...] INDEP GAIT AND TRANSFERS. 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 TOMI UE'S WFL. Sensory deficit: NO. ROM deficit: TOMI UE'S WFL WITH SLIGHT DEFICIT OF LEFT SHOULDER ROM AND STRENGTH COMPARED TO RIGHT. Reflexes: 2/2 TOMI UE'S. Dural Signs: NEGATIVE TOMI UE'S. Cervical Mvmt Loss: Flex: NIL. Pro: NIL. Ext: MOD. Ret: MOD TO REHANA. RSB: MIN. LSB: [place] N. R Rot: MIN. L Rot: MIN. [...] to be FAXED BACK to us at [phone] for Medicare purposes. Please let me know if there are questions or concerns re garding this plan of care. Physician Signature: Date: <Electronically signed by Maliha Rudolph PT, Cert. MDT> 09/28/18 1313 CC: Jessica Corona DO NAZANIN Signed For Medicare only, by signing this I certify the plan of care. Physicians Signature Date 24-Sep-2018 Renal Artery Duplex Result: Comments: See Note; NOTES: [facility] Cardiovascular Services [address] [place] [address] Renal Artery Duplex Ultrasound 09/22/18 0802 MR#: [id number] Acct: [id number] Name: NEISHA TOBAR Rep #: [id number] : 1950 68 From: Ciro Maravilla MD Attending Dr: Jessica Corona DO Status: REG CLI Ordering Dr: Jessica Corona DO Date: 09/22/18 Location: [facility] Sex: F C Admitt ed: Reason For [...] Dictated: 09/22/18 0802 Date Transcribed: 09/24/18 1013 Chief Ii Dispatcher: Signed 18-Sep-2018 Kidney and Bladder Result: Comments: See Note; NOTES: [facility] Imaging Services [address] [place] [address] Kidney and Bladder MR#: [id number] Acct: [id number] Name: NEISHA TOBAR Rep #: [id number] : 1950 F 68 From: Jorge Holland MD PCP: Jessica Corona DO Status: REG CLI Study: Kidney and Bladder Date of Exam: 09/18/18 Exam# [id number] Ordering Dr: Jessica Corona DO STUDY: RENAL [...] Service support , CC: Jessica Corona DO Chief Ii Dispatcher: Signed 12-Sep-2018 12 Lead Electrocardiogram Result: Comments: See Note; NOTES: [facility] Cardiovascular Services [address] [place] [address] 12 Lead EKG 09/09/18 0949 MR#: [id number] Acct: [id number] Name: NEISHA TOBAR ep #: [id number] : 1950 68 From: Ian Gudino MD [...] Abnormal ECG Confirmed by TERESE MCKAY, IAN ([id number]), editorial director CHARITY VILLEGAS ([id number]) on 09/12/2018 11:06:08 AM Referred By: Devora Corona Confirmed By:IAN GUDINO MD 09/12/18 1106 Date Ian Gudino MD CC: Anel Hunter MD; Jessica Chloe SCHROEDER Signed 09-Sep-2018 Emergency Department Summary Result: Comments: See Note; NOTES: [facility] Medical Records Department [address] [place] [address] Emergency Department Summary 09/09/18 0934 MR#: [id number] Acct: [id number] Name: NEISHA TOBAR Rep #: [id number] : 1950 68 From: Anel Hunter MD [...] Hypertension, improved This note was generated with [employer] dictation software. It may contain incorrect words, [...] problems, contact your Primary Care Provider. Call [email or web address] [facility] ([phone]) or report to the [facility] Emergency Room. Call 911 if necessary. 09/09/18 1633 <Electronically signed by Anel Hunter MD> Date Anel Hunter MD Cos igner Signature (If Indicated): Date CC: Jessica Corona DO 09-Sep-2018 Discharge Instruction Result: Comments: See Note; NOTES: [facility] Medical Records Department [address] [place] [address] Discharge Instruction 09/09/18 1203 MR#: [id number] Acct: [id number] Name: Lydia TOBAR Rep #: [id number] : 1950 68 From: Anel Hunter MD [...] your Primary Care Provider. Call [facility] ([phone]) or report to the closest Emergency Room. Call 911 if necessary. 09/09/18 1207 < Electronically signed by Anel Hunter MD> Date Anel Hunter MD Cosigner Signature (If Indicated): Date CC: Jessica Corona DO 09-Sep-2018 Brain/Head without Contrast Result: Comments: See Note; NOTES: [facility] Imaging Services [address] [place] [address] Brain/Head without Contrast MR#: [id number] Acct: [id number] Name: NEISHA TOBAR Rep #: [id number] : 1950 F 68 From: Italo Brown DO PCP: Jessica Corona DO Status: REG ER Study: Brain/Head without Contrast Date of Exam: 09/09/18 Exam# [id number] Ordering Dr: Anel Hunter MD [facility]: CT BRAIN WITHOUT CONTRAST REASON FOR [...] CC: Anel Hunter MD; Jessica Corona DO Chief Ii Dispatcher: Signed 21-Jun-2018 Abd Inc Decub and/or Erect Result: Comments: See Note; NOTES: [facility] Imaging Services [address] [place] [address] Abd Inc Decub and/or Erect MR#: [id number] Acct: [id number] Name: NEISHA TOBAR Rep #: [id number] : 1950 F 68 From: Tapan Gore MD PCP: Jessica Corona DO Status: REG CLI Study: Abd Inc Decub and/or Erect Date of Exam: 06/21/18 Exam# [id number] Ordering Dr: Jud Samaniego Y: X-RAY - [...] , Service support , CC: Jud Samaniego ENERGY DIRECTOR; Jessica Corona DO Chief Ii Dispatcher: Signed 02-Jun-2018 Cerv Spine 2 or 3 Views Result: Comments: See Note; NOTES: [facility] Imaging Services [address] [place] [address] Cerv Spine 2 or 3 Views MR#: [id number] Acct: [id number] Name: NEISHA TOBAR Rep #: [id number] : 1950 F 68 From: Jamil Paulson MD PCP: Jessica Corona DO Status: REG CLI Study: Cerv Spine 2 or 3 Views Date of Exam: 06/02/18 Exam# [id number] Ordering Dr: Jessica Corona DO UDY: X-RAY [...] Service support , CC: Jessica Corona DO Chief Ii Dispatcher: Signed 25-May-2018 L/S Spine Min 4 Views Result: Comments: See Note; NOTES: [facility] Imaging Services [address] [place] [address] L/S Spine Min 4 Views MR#: [id number] Acct: [id number] Name: NEISHA TOBAR Rep #: [id number] : 1950 F 68 From: Mikayla Guerrier MD PCP: Jessica Corona DO Status: REG CLI Study: L/S Spine Min 4 Views Date of Exam: 05/25/18 Exam# [id number] Ordering Dr: Addie Mallory ENERGY DIRECTORSteven STUDY: X -RAY - LUMBAR SPINE REASON [...] , CC: DEYSI Mallory; Jessica Corona DO Chief Ii Dispatcher: Signed 09-May-2018 Dexa Bone Density Study Result: Comments: See Note; NOTES: [facility] Imaging Services [address] [place] [address] Dexa Bone Density Study MR#: [id number] Acct: [id number] Name: NEISHA TOBAR Rep #: [id number] : 1950 F 68 From: Kvng Cutler MD PCP: Jessica Corona DO Status: REG CLI Study: Dexa Bone Density Study Date of Exam: 05/09/18 Exam# [id number] Ordering Dr: Jessica Corona DO STUDY: DUAL [...] Kvng Cutler MD at 8:25 EDT Tel [phone], Service support , CC: Jessica Corona DO Chief Ii Dispatcher: Signed 14-Feb-2018 MRCP Abdomen without Contrast Result: Comments: See Note; NOTES: [facility] Imaging Services [address] [place] [address] MRCP Abdomen without Contrast MR#: [id number] Acct: [id number] Name: NEISHA TOBAR Rep #: [id number] : 1950 F 68 From: Vj Rajput MD PCP: Jessica Corona DO Status: REG CLI Study: MRCP Abdomen without Contrast Date of Exam: 02/14/18 Exam# [id number] Ordering Dr: Rigo Corona DO STUDY: MR [...] Service support , CC: Jessica Corona DO Chief Ii Dispatcher: Signed 03-Feb-2018 Abdomen Limited Result: Comments: See Note; NOTES: [facility] Imaging Services [address] [place] [address] Abdomen Limited MR#: [id number] Acct: [id number] Name: NEISHA TOBAR Rep #: [id number] D OB: 1950 F 68 From: Kvng Cutler MD PCP: Jessica Corona DO Status: REG CLI Study: Abdomen Limited Date of Exam: 02/03/18 Exam# [id number] Ordering Dr: Jessica Corona DO STUDY: ABDOMINAL [...] Kvng Cutler MD at 13:52 EDT Tel [phone], Service support , CC: Jessica Corona DO Chief Ii Dispatcher: Signed 31-Jan-2018 SCREENING MAMM (CAD), BILAT Result: Comments: See Note; NOTES: [facility] Imaging Services [address] [place] [address] SCREENING MAMM (CAD), BILAT MR#: [id number] Acct: [id number] Name: NEISHA TOBAR Rep #: [id number] : 1950 F 67 From: Kvng Cutler MD PCP: Jessica Corona DO Status: REG CLI Study: SCREENING MAMM (CAD), BILAT Date of Exam: 01/31/18 Exam# [id number] Ordering Dr: Lidia Corona DO MAMMOGRAPHY - [...] delay biopsy of a clinically suspicious abnormality. [id number] Electronically Signed: Kvng Cutler MD at 14:26 EDT Tel [phone], Service supp ort , CC: Jessica Corona DO Chief Ii Dispatcher: Signed 28-Aug-2015 Bilat Scrn Digital AND CAD Result: Comments: See Note; NOTES: [facility] Imaging Services [address] [place] [address] Breast Imaging Report MR#: [id number] Acct: [id number] Name: NEISHA TOBAR Rep # : [id number] : 1950 F 65 From: Kvng Cutler MD PCP: Jessica Corona DO Status: REG CLI Study: Bilat Scrn Digital AND CAD Date of Exam: 08/28/15 Exam# [id number] Ordering Dr: Raymond Corona DO MAMMOGRAPHY - [...] be sent to the patient by the [facility] within 30 days. Approximately 10% of breast cancers are not detected by mammography. A normal mammogram should not delay biopsy of a clinically suspicious abnormality. Electronically Mirian d: Kvng Cutler MD at 8:05 EDT Tel [phone], Service support [phone], CC: Jessica Corona DO Chief Ii Dispatcher: Signed 03-Jun-2015 PT Discharge Summary Result: Comments: See Note; NOTES: [facility] Physical Therapy [facility] [address] [place] [address]. [address] [place], [place] [address] Fax REHABILITATION SERVICES DISCHARGE SUMMARY MR#: [id number] Acct: [id number] Name: NEISHA TOBAR Rep #: [id number] : 1950 65 From: Sandy Nelson Referring [...] clinic. Sandy Nelson, PT T: NTS JOB: [id number] <Electronically signed by Sandy Nelson > 06/03/15 1726 CC: Signed 26-May-2015 Chest PA and Lateral Result: Comments: See Note; NOTES: [facility] Imaging Services [address] [facility] [place] [address] Radiology Report MR#: [id number] Acct: [id number] Name: NEISHA TOBAR Rep #: [id number] : 1950 F 65 From: Zoila Allen MD PCP: Jessica Corona DO Status: REG CLI Study: Chest PA and Lateral Date of Exam: 05/26/15 Exam# [id number] Ordering Dr: Jud Samaniego STUDY: X-RAY C [...] MD at 12:07 EDT , Service support [phone], RAD /Chest PA and Lateral IMPRESSION: There is a left midlung field calcified granuloma. There is bilateral lower lobe scarring/atelectasis. No radiographic evidence of bronchitis. Electronically Sig kyle: Zoila Allen MD at 12:07 EDT , Service support [phone], CC: Jud Samaniego; Jessica Corona DO Chief Ii Dispatcher: Signed 13-May-2015 Inital Evaluation - PT Result: Comments: See Note; NOTES: [facility] Physical Therapy [facility] [address] [place] [address] Fax REHABILITATION SERVICES INITIAL EVALUATION MR#: [id number] Acct: [id number] Name: NEISHA TOBAR Rep #: [id number] : 1950 65 From: Sandy Nelson Referring [...] needed. Sandy Nelson, PT T: NTS JOB: [id number] <Electronically signed by Sandy Nelson > 05/13/15 0818 CC: Signed For Medicare only, by signing this I certify the plan of care. Physicians Signature Date 16-Apr-2015 L/S Spine Min 4 Views Result: Comments: See Note; NOTES: [facility] Imaging Services [address] [place] [address] Radiology Report MR#: [id number] Acct: [id number] Name: NEISHA TOBAR Rep #: [id number] : 1950 F 65 From: Rod Pollard DO PCP: Jessica Corona DO Status: REG CLI Study: L/S Spine Min 4 Views Date of Exam: 04/16/15 Exam# [id number] Ordering Dr: Jud Samaniego STUDY: X-RA Y [...] Rod Pollard DO at 16:48 EDT Tel [phone], Service support [phone], RAD/L/S Spine Min 4 Views IMPRESSION: Degenerative ch anges of the spine, as detailed above. Electronically Signed: Rod Pollard DO at 16:48 EDT Tel [phone], Service support [phone], CC: Jud Samaniego; Rigo Corona DO Chief Ii Dispatcher: Signed 11-Jun-2014 Bilat Scrn Digital & CAD Result: Comments: See Note; NOTES: [facility] Imaging Services [address] [place] [address] Breast Imaging Report MR#: [id number] Acct: [id number] Name: NEISHA TOBAR Rep #: [id number] : 1950 F 64 From: Ian Lamas MD PCP: Jessica Corona DO Status: REG CLI Exam# [id number] Ordering Dr: Jessica Corona DO MAMMOGRAPHY - [...] 17:24 EDT Tel , Ser vice support [phone], CC: Jessica Corona DO Chief Ii Dispatcher: Signed 29-Oct-2013 Gastric Emptying Study Result: Comments: See Note; NOTES: [facility] Imaging Services [address] [place] [address] Nuclear Medicine Report MR#: [id number] Acct: [id number] Name: NEISHA TOBAR Rep #: [id number] : 1950 F 63 From: Celestine Garza DO PCP: Status: REG CLI Study: Gastric Emptying Study Date of Exam: 10/29/13 Exam# [id number] Ordering Dr: Jessica Corona DO CLINICAL: 63 [...] Service support , CC: Jessica Corona DO Chief Ii Dispatcher: Signed Family History Unknown Family Member Name [...] Active Vital Signs Date Test Result Details 2-Hmb-393215:05 Pulse 62 /min Comments: Pattern: Regular Respiration [...] kg/m2 Body Surface Area Calculated 1.94 m2 35-Zyh-044173:56 Pulse 65 /min Comments: Pattern: Regular Respiration [...] kg/m2 Body Surface Area Calculated 1.94 m2 31-Gmu-65744:24 Comments: recheck 230/100 Temperature 98 f Comments: [...] see. but her last appt was in [place] and had a glaucoma test donehearing wml [...] Results Date Description Value Details :45 ALDOSTERONE (17656) Comments: PATIENT NOT FASTINGPERFORMED BY: [facility] [address] [id number] Aldosterone 19.6 ng/dL (Normal) Range: 0.0-30.0 Comments: This test was developed and its performance characteristicsdetermined by [facility]. It has not been cleared or approvedby the Food and Drug Administration. :45 RENIN (76714) Comments: PATIENT NOT FASTINGPERFORMED BY: [facility] [address] [id number] Renin Activity, Plasma 0.846 {ng/mL/hr} Range: 0.167-5.380 (Normal) Comments: This test was developed and its performance characteristicsdetermined by [facility]. It has not been cleared or approvedby the Food and Drug Administration. 86-Syk-74462:00 METANEPHRINES - URINE (78945) Comments: PATIENT NOT FASTINGPERFORMED BY: [address] [id number] Metanephrine, U,24hr 84 {ug/24_hr} (Normal) Range: 45-290 Comments: (Hypertensive) >17 years 11 months: 35 - 460 Metanephrine, Ur 84 ug/L (Normal) Normetanephr.,U,24h 352 {ug/24_hr} (Normal) Range: 82-500 Comments: (Hypertensive) >17 years 11 months: 110 - 1050 Normetanephrine, Ur 352 ug/L (Normal) 47-Bef-33330:00 CATECHOLAMINES TOTAL, URINE Comments: PATIENT NOT FASTINGPERFORMED BY: [address] [id number] Information: START 09/14/18 @5AM (47063) Dopamine, Ur, 24hr 155 {ug/24_hr} (Normal) Range: 0-510 Dopamine, Urine 155 ug/L (Normal) Comments: Verified by repeat analysis Norepinephrine,U,24h 52 {ug/24_hr} (Normal) Range: 0-135 Norepinephrine, Ur 52 ug/L (Normal) Comments: Verified by repeat analysis Epinephrine, U, 24hr 8 {ug/24_hr} (Normal) Range: 0-20 Epinephrine, Urine 8 ug/L (Normal) Comments: Verified by repeat analysis 85-Mdv-88748:00 URINE VMA (88462) Comments: PATIENT NOT FASTINGPERFORMED BY: [address] [id number] VMA, Urine, 24hr 2.4 {mg/24_hr} (Normal) Range: 0.0-7.5 Comments: This test was developed and its performance characteristicsdetermined by [employer]. It has not been cleared or approvedby the Food and Drug Administration. VMA, Urine 2.4 mg/L (Normal) 21-Dti-72488:38 Basic Metabolic Profile (BMP) Comments: [facility] [address] [place], [place], [id number] GAP 7 (Normal) Range: 5-15 CO2 27.0 [...] A.D.A. criteria.Please note revised GLUCOSE reference range sxyiztffp41/02/2018. 05-Fra-17858:38 CBC W/Diff, Automated Comments: [facility] [address] [place], [place], [id number] Absolute Lymph 1.21 {X10_3/ul} (Normal) Range: 0.83-4.51 [...] 4.2-5.4 WBC 5.8 K/mm3 (Normal) Range: 4.4-11.0 38-Fqc-943537:49 Basic Metabolic Profile (BMP) Comments: [facility] [address] [place], [place], [id number] GAP 5 (Normal) Range: 5-15 CO2 30.0 [...] A.D.A. criteria.Please note revised GLUCOSE reference range tdsxgotok64/02/2018. 1-Pbw-747759:47 URINE KVNG CULTURE-HE COL Comments: PERFORMED BY: [facility] Lkeucn6640 [facility] [id number] Information: [id number] SRC:UR COUNT (16925) Antimicrobial MIHEAD (Normal) Comments: S = Susceptible; [...] Final report Culture,Comprehensive (Abnormal) 21-Jun-20188:17 Urinalysis, Office (48847) UA - LEUKOCYTE ESTERASE Negative (Normal) UA - NITRITE Negative (Normal) URINE UROBILINGN HE TIMED Normal mg/dL (Normal) UA - PROTEIN Negative mg/dL (Normal) UA - PH 7.5 (Normal) UA - BLOOD Negative (Normal) UA - SPECIFIC GRAVITY 1.010 (Normal) UA - KETONES Negative mg/dL (Normal) UA - BILIRUBIN Negative (Normal) UA - GLUCOSE Negative (Normal) 18-Mrr-67040:39 CBC, PLATELETS & AUT DIFF Comments: PATIENT NOT FASTINGPERFORMED BY: [facility] Ansfcs3560 [facility] [id number] (15389) Immature Grans (Abs) 0.0 {x10E3/uL} (Normal) Range: [...] HIGH SENS(hsCRP) Comments: PATIENT NOT FASTINGPERFORMED BY: [facility] [id number] (61630) C-Reactive Protein, Cardiac 2.22 mg/L (Normal) Range: 0.00-3.00 Comments: Relative Risk for Future Cardiovascular Event Low <1.00 Average 1.00 - 3.00 High >3.00 :39 ESR-F (SED RATE ERYTHROCYTE - Comments: PATIENT NOT FASTINGPERFORMED BY: [facility] CenterWqqohx9167 [facility] [id number] FEMALE) (20608) Sedimentation Rate-Westergren 9 mm/h (Normal) Range: 0-40 :39 LDH (LD) (LACTATE DEHYDROGENASE) Comments: PATIENT NOT FASTINGPERFORMED BY: [facility] CenterUpfxwp4627 [facility] [id number] (73297) LDH 209 [iU]/L (Normal) Range: 119-226 Hemoglobin A1c 5.5 % (Normal) Comments: PATIENT NOT FASTINGPERFORMED BY: [facility] CenterOmtjbr8798 [facility] [id number] 3:06 Range: 4.8-5.6 Comments: . Pre-diabetes: 5.7 - 6.4 Diabetes: >6.4 Glycemic control for adults with diabetes: <7.0 Written Authorization WAR (Normal) Comments: PATIENT NOT FASTINGPERFORMED BY: [facility] Ufvnep6645 [facility] [id number] 3:06 Comments: Written Authorization Received.Authorization received from ANNETTE POWELL LPN 64-30-5200Ekxlzd by Lidia Reddy 47-Hbt-346296:06 TSH (93555) Comments: PATIENT NOT FASTINGPERFORMED BY: [facility] Tryotj3976 [facility] [id number] TSH 2.370 {uIU/mL} (Normal) Range: 0.450-4.500 49-Klw-345049:06 METABOLIC PANEL, COMPREHENSIVE Comments: PATIENT NOT FASTINGPERFORMED BY: [facility] Bbnreb2756 [facility] [id number] (36750) ALT (SGPT) 19 [iU]/L (Normal) Range: 0-32 [...] 8-27 Glucose 102 mg/dL (Abnormal) Range: 65-99 90-Rtq-393890:06 CBC W/AUTO DIFF WBC (83359) Comments: PATIENT NOT FASTINGPERFORMED BY: [facility] CenterOfnvul5288 [facility] [id number] Immature Grans (Abs) 0.0 {x10E3/uL} (Normal) Range: [...] (Normal) Range: 3.4-10.8 :56 Free T3 Comments: [facility] [address] [place], [phone] FREE T3 2.7 pg/mL (Normal) Range: 2.18-3.98 :56 Lipid Profile Comments: [facility] [address] [place], [phone] VLDL 34 mg/dL (Normal) Range: 5-40 LDL [...] mg/dL High Risk :56 Liver Profile Comments: [facility] [address] [place], [id number] ; ov 03/20 D BILI 0.12 mg/dL (Normal) Range: 0.00-0.30 T BILI 0.50 mg/dL (Normal) Range: 0.20-1.00 ALT 24 U/L (Normal) Range: 13-56 ALK P 67 U/L (Normal) Range: 45-117 AST 19 U/L (Normal) Range: 15-37 GLOB 3.7 g/dL (Normal) Range: 2.2-4.2 ALB 3.8 g/dL (Normal) Range: 3.2-5.0 T PROT 7.5 g/dL (Normal) Range: 6.4-8.2 :56 T4 Free Direct Comments: [facility] [address] [place], [phone] T4 FREE DIRECT 0.97 ng/dL (Normal) Range: 0.76-1.46 75-Kef-37517:56 Thyroid Stim Hormone (TSH) Comments: [facility] [address]cavf[address] [place], [address] TSH 3.42 {uIU/mL} (Normal) Range: 0.358-3.74 6-Dps-433474:52 GGTP 30 U/L (Normal) Comments: [facility] [address]smqmd8211 [place], [address] Range: 5-55 7-Czb-898834:52 Liver Profile Comments: [address] [place], [address] D BILI 0.15 mg/dL [...] T PROT 7.6 g/dL (Normal) Range: 6.4-8.2 8-Kyv-079539:36 Bilirubin, Direct Comments: LIVER AND GGTP FOR [facility] [address] [place], [address] D BILI 0.14 mg/dL (Normal) Range: 0.00-0.30 :36 CBC W/Diff, Automated Comments: LIVER AND GGTP FOR [facility] [address]kscp8478 [place], [id number] Absolute Lymph 1.45 {X10_3/ul} (Normal) Range: 0.83-4.51 [...] 4.2-5.4 WBC 6.4 K/mm3 (Normal) Range: 4.4-11.0 2-Pet-400381:36 Comprehensive Metabolic Profil Comments: LIVER AND GGTP FOR [facility] FOR [facility] [address] [place], [place], [phone] GAP 9 (Normal) Range: 5-15 CO2 27.0 [...] 7-18 GLU 91 mg/dL (Normal) Range: 70-110 2-Wsn-955902:36 GGTP 22 U/L (Normal) Comments: LIVER AND GGTP FOR [facility] [address]256 [facility] [place], [place], [phone] Range: 5-55 9-Olp-695239:36 Lipid Profile Comments: LIVER AND GGTP FOR [facility] [address]ktf22[address] [place], [place], [address] VLDL 56 mg/dL (Abnormal) Range: 5-40 LDL [...] 200-240 mg/dL Borderline >240 mg/dL High Risk 7-Hoq-054377:36 Microalb:Creat Ratio,Random UR Comments: LIVER AND GGTP FOR [facility] [address]cbv[address] [place], [place], [phone] MALB:CREAT 38.1 {mg/g_CRE} (Abnormal) MICROALBUMIN,UR 43.8 mg/L (Normal) UR CREAT 115.00 mg/dL (Normal) 0-Jii-174586:36 Thyroid Stim Hormone (TSH) Comments: LIVER AND GGTP FOR [facility] FOR [facility] [address] [place], [phone] TSH 4.13 {uIU/mL} (Abnormal) Range: 0.358-3.74 :36 Urinalysis, Complete Comments: LIVER AND GGTP FOR [facility] FOR [facility] was Urine Obtained? CLEAN [facility] [address] [place], [place], [id number] HYALINE CAST 0-5 SEEN {/lpf} Range: 0-5 [...] BIOPSY (CHOOSE SITE) See Note (Normal) Comments: [facility] [address] [place], [place], [address] 0:00 Comments: Patient: NEISHA TOBAR : 1950 (66/F) Acct Num: [id number] Phys: Steve Richard Unit Num: [id number] Loc: LABSPEC Specimen: [id number] Received: 02/11/16 - 0754 Spec Type: COLON BX TISSUES TISSUES: GROSS DESCRIPTION Received is one container labeled with the patient name and designated biopsy polyp right colon. The specimen consists of multiple irre gular fragments of light ramirez soft tissue that in aggregate measure 0.2 x 0.1 x 0.1 cm. The specimen is totally submitted in one cassette. / AM:chris 02/10/16 TC:5 CPT:22359 HEADER OPERATION: Colon oscopy with biopsy PRE-OP DIAGNOSIS: High-risk screen/polyp TISSUE SUBMITTED: Biopsy, polyp, right colon - rule out adenoma MICROSCOPIC DESCRIPTION Slides are reviewed. MICROSCOPIC DIAGNOS IS Right colon polyp, biopsy: Hyperplastic polyp. AM:crow 02/11/16 Signed Samuel Curtis 02/11/16 <signature on file> C difficile Toxins A+B, Negative (Normal) Comments: PATIENT NOT FASTINGPERFORMED BY: Yoostay Bqmruy2692 [facility]At[facility] [id number] 3:19 EIA Cryptosporidium EIA Negative (Normal) Comments: PATIENT NOT FASTINGPERFORMED BY: [employer] Xkwmkn3547 [facility]-SpotAt[facility] [id number] 3:19 0-Dei-368353:19 Giardia, EIA, Ova/Parasite Comments: PATIENT NOT FASTINGPERFORMED BY: [employer] Artdti3022 SarabiaNTRglobalAtrium Health Pineville [id number] Giardia lamblia Ag, Negative (Normal) EIA Result 1 NOCP (Normal) Comments: No ova, cysts, or parasites seen. Ova + Parasite Exam Final report Comments: These results were obtained using wet preparation(s) and trichromestained smear. This test does not include testing for Cryptosporidiumparvum, Cyclospora, or Microsporidia. (Normal) : Occult Blood, Fecal, Negative (Normal) Comments: PATIENT NOT FASTINGPERFORMED BY: [facility] [id number] 19 IA :19 Stool Culture Comments: PATIENT NOT FASTINGPERFORMED BY: [address] [id number] Information: SRC:ST STOOL E coli Shiga Toxin EIA Negative (Normal) Result 1 NCI (Normal) Comments: No Campylobacter species isolated. Campylobacter Culture Final report (Normal) Result 1 NSS (Normal) Comments: No Salmonella or Shigella recovered. Salmonella/Shigella Screen Final report (Normal) :19 White Blood Cells (WBC), Comments: PATIENT NOT FASTINGPERFORMED BY: [facility] [id number] Stool Result 1 NWBC (Normal) Comments: No white blood cells seen. White Blood Cells (WBC), Final report (Normal) Stool :54 CBC W/AUTO DIFF WBC Comments: PATIENT NOT FASTINGPERFORMED BY: [facility] [id number] Information: [id number] (74034) Immature Grans (Abs) 0.0 {x10E3/uL} (Normal) Range: [...] COMPREHENSIVE Comments: PATIENT NOT FASTINGPERFORMED BY: [facility] Npfbyo0998 [facility] [id number] (43582) ALT (SGPT) 19 [iU]/L (Normal) Range: 0-32 [...] 99 mg/dL (Normal) Range: 65-99 :54 TSH (25168) Comments: PATIENT NOT FASTINGPERFORMED BY: [facility] Yezwbc2306 [facility] [id number] TSH 2.210 {uIU/mL} (Normal) Range: 0.450-4.500 :05 Urinalysis, Office (92129) UA - LEUKOCYTE ESTERASE Negative (Normal) UA [...] CHOL 310 mg/dL (Abnormal) Comments: <200 mg/dL Boujqlmoc931-830 mg/dL Borderline>240 mg/dL High Risk TRIG 185 [...] (Normal) UCLAR Clear (Normal) UCOL Yellow (Normal) 27-Nek-270103:26 HgA1C , Office (69530) HgA1C , Office 5.7 % (Normal) Range: [...] CHOL 286 mg/dL (Abnormal) Comments: <200 mg/dL Tmidrhdfa569-829 mg/dL Borderline>240 mg/dL High Risk :14 MIACRE tMICROCREAT <TEST NOT PERFORMED> {mg/g_CRE} (Normal) MIALB < 5.0 mg/L (Normal) CREU 18.4 mg/dL (Normal) :14 TSH 3.54 {uIU/mL} (Normal) Range: 0.358-3.74 :14 [facility] 0 SEEN {/hpf} (Normal) UBAC 0 [...] (Normal) UCLAR Clear (Normal) UCOL Yellow (Normal) 4-Edm-018553:43 BILAT SCRN DIGITAL & CAD Radiology Report [...] Cutler M.D.January 23, 2013 at 12:21:32 PM [id number] Signed GP/GP If you are the referring physician and would like to consult with theradiologist who provided this interpretation, please contact Letty Mukherjee at [phone]. If this radiologist is unavailable, youwill be directed to another radiologist to as sist. If you are a patient with a question regarding this report, pleasecontactyour referring physician directly. Professional Interpretation Provided By: [employer], Phone ,Fax These documents contain legally protected [...] narrowing at the L4, L5, and L5, J6pxxmut. IMPRESSION:Sigmoid diverticulosis. Signed:Kvng Cutler M.D.September 01, 2012 at 1:13:05 PM [id number] Signed GP/GP If you are the referring physician and would like to consult with theradiologist who provided this interpretation, please contact Letty Mukherjee at [phone]. If this radiologist is unavailable, youwill be directed to another radiologist to assist. If you are a patient with a question regarding this report, pleasecontactyour referring physician directly . Professional Interpretation Provided By: [employer], Phone , These documents contain legally protected [...] 09/01/12 1323 Sign by: Kvng Cutler MD 69-Hmi-097300:53 CRE GFRAA 109 mL/min (Normal) GFR 90 mL/min (Normal) CREAT 0.7 mg/dL (Normal) Range: 0.6-1.0 90-Ckt-534169:41 KNEE,4 OR MORE VIEWS Radiology Report See [...] regarding t his report, please call our [id number] line @ Dictated on 01/31/12 1436 by Alec MCKAY,GabrieleTranscribed on 02/01/12 1327 by ITS IMPORTSign by Alec MCKAY,Kvng on 02/01/12 13 28 Sign by: Alec MCKAY,Kvng 9-Koj-828904:36 CULTURE, URINE URINE CULTURE See Note {CFU/mL} (Normal) Comments: COLONY COUNT 25,000-50,000 ORGANISM 1: MIXED GRAM POSITIVE ORGANISMS :17 Urinalysis, Office (35357) UA - BILIRUBIN Negative (Normal) UA - [...] :34 TSH 3.22 {uIU/mL} (Normal) Range: 0.358-3.74 73-Qxb-035228:23 URINE KVNG CULTURE-IDENTIFICATN Comments: PATIENT NOT FASTINGPERFORMED BY: [facility]CoDeborah [facility] and Lung CenterUaatmr5334 [facility] [id number] Information: [id number] (34012) Antimicrobial MIHEAD (Normal) Comments: S = Susceptible; [...] primarily for treating urinary tract infections. (CLSI, B201-Z03,2009) Result 1 Klebsiella pneumoniae Comments: 3,000 Colonies/mL . (Normal) Urine Final report (Normal) Culture,Comprehensive 96-Nku-76057:52 Urinalysis, Office (03464) UA - BILIRUBIN Negative (Normal) UA - BLOOD Negative (Normal) UA - GLUCOSE Negative (Normal) UA - KETONES Negative mg/dL (Normal) UA - LEUKOCYTE ESTERASE Small (Normal) UA - NITRITE Negative (Normal) UA - PH 5.0 (Normal) UA - PROTEIN Negative mg/dL (Normal) UA - SPECIFIC GRAVITY 1.015 (Normal) URINE UROBILINGN HE TIMED Normal mg/dL (Normal) 6-Kjm-612741:44 TRANSVAGINAL NON- Radiology Report See Note (Normal) Comments: Exam Number: [id number] LINICAL:This is a 60-year-old female patient with [...] were not visualized. Reported By: KVNG CUTLER 7-Gvc-149448:24 PELVIC (NON ) Radiology Report See Note (Normal) Comments: Exam Number: [id number] LINICAL:This is a 60-year-old female patient with [...] were not visualized. Reported By: KVNG CUTLER 54-Iws-032196:53 URINE KVNG CULTURE-HE COL Comments: PATIENT NOT FASTINGPERFORMED BY: [facility]CoDeborah [facility] and Lung CenterXfczwm0254 [facility] [id number] Information: SRC:URT [id number] COUNT (81893) Result 3 BETAGB (Normal) Comments: Beta hemolytic [...] primarily for treating urinary tract infections. (CLSI, X246-S02,2009) Result 2 Klebsiella pneumoniae Comments: 100 Colonies/mL . (Normal) Urine Final report (Normal) Culture,Edna rankin :50 Urinalysis, Office (81389) UA - LEUKOCYTE ESTERASE Trace (Normal) UA - NITRITE Negative (Normal) URINE UROBILINGN HE TIMED Normal mg/dL (Normal) UA - PROTEIN Negative mg/dL (Normal) UA - PH 5.0 (Normal) UA - BLOOD Non Hemolyzed Trace (Normal) UA - SPECIFIC GRAVITY 1.010 (Normal) UA - KETONES Negative mg/dL (Normal) UA - BILIRUBIN Negative (Normal) UA - GLUCOSE Negative (Normal) 9-Ojv-823569:00 Urinalysis, Office (73877) UA - LEUKOCYTE ESTERASE Trace (Normal) UA [...] Comments: GLU,2HPPG 75gm GLUC PPG GLUP from 0902:K58793T. :34 CBC, EMPLOYEE [employer] 34.4 g/dL (Normal) [...] CHOL 283 mg/dL (Abnormal) Comments: <200 mg/dL Giwzewxjw876-631 mg/dL Borderline>240 mg/dL High Risk HDL 53 [...] Report See Note (Normal) Comments: Exam Number: [id number] CLINICAL:This is a 60-year-old female patient with [...] of the thyroid. Reported By: KVNG CUTLER 95-Oim-02150:10 COLON BX P-COLBX (Normal) Comments: OPERATIONColonoscopy with biopsyPRE-OPERATIVE DIAGNOSISDiarrheaPOST- OPERATIVE DIAGNOSISRule out microscopic colitisTISSUE SUBMITTEDA - Right colon biopsy, B - Left colon biopsyMICROSCOPIC DIAGNOSISA. R ight colon, biopsy:Fragments of colonic mucosa, no pathologic diagnosis.B. Left colon, biopsy:Fragments of colonic mucosa, no pathologic diagnosis.SJ:chris 03/20/10GROSS DESCRIPTIONA - Received in [facility] n labeled with patient name and number [...] is totally submitted in one cassette. / SJ:chris 03/19/10TC:4REPORT SIGNED: SHREE WEINSTEIN 03/20/1010-Feb-201027-Nmx-205211:08 KNEE,4 OR MORE VIEWS (MT) Radiology Report See Note (Normal) Comments: Exam Number: [id number] CLINICAL:Pain X-RAY EXAMINATION LEFT KNEE TECHNIQUE:Four views of the knee. COMPARISON:None. FINDINGS:Normal visualized distal femur. Normal visualized proximal tibia. Normal visu alized proximal fibula. There is minimal narrowing of the medial femorotibial compartment.Normal lateral femorotibial compartment. Normal patellofemoral articulation. There is no demonstrated jointeffu tamia. There is no demonstrated soft tissue swelling. IMPRESSION:Chronic degenerative changes, as discussed above. Reported By: SURINDER WOODRUFF 11-Bgd-086717:00 SPINE, LUMBAR W/W/O CONTRAST Radiology Report See Note (Normal) Comments: Exam Number: [id number] CLINICAL:59-year-old female with displaced lumbar disk low [...] Reported By: LANDY HIGHTOWER M.D. :03 TRAN-D [id number] TRAN-DIRECT SeeNote (Normal) Comments: Result: Negative Performed At: [facility] [address] [id number] At: [facility] [place], [place] [id number] :03 ANTI-CCP 098327 6 {units} (Normal) Range: 0-19 Comments: Negative [...] Report See Note (Normal) Comments: Exam Number: [id number] BILATERAL SCREENING MAMMOGRAM COMPARISONComparison is made to [...] The mammogramswere also examined with computer-aided detection software([employer] Reported By: CHUCK PEREZ M.D. 90-Cee-251462:46 SHOULDER,MIN 2 VIEWS Radiology Report See Note (Normal) Comments: Exam Number: [id number] RIGHT SHOULDER HISTORYShoulder pain. TECHNIQUEFour views of [...] normal variant. Reported By: LUIS JORGE M.D. 57-Gqv-870146:00 LQD PAP [id number] Comments: CYTOLOGY INFORMATION:- CLINICAL INFORMATION: POSTMENOPAUSAL- DATE LMP/MENOPAUSE: - COLLECTION VIAL: Thin Prep Vial- CHILDREN'S INSTITUTION ATTENDANT SOURCE: CERVICAL/ENDOCERVICAL- COLLECTION TECHNIQUE: BRUSH/SPATULA ADEQ Comment (Normal) Comments: Satisfactory for evaluation. Endocervical and/or squamous metaplasticcells (endocervical component) are present. COMM . (Normal) DIAGN Comment (Normal) Comments: NEGATIVE FOR INTRAEPITHELIAL LESION AND MALIGNANCY. HPV RFLX Comment (Normal) Comments: The HPV DNA reflex criteria were not met with this specimenresult therefore, no HPV testing was performed. .Performed At: [facility] [address] [place], [place] [id number] PAPSMR Comment (Normal) Comments: The Pap smear is a screening test designed to aid in thedetection of pre-malignant and malignant conditions of theuterine cervix. It is not a diagnostic procedure andshould not be used as the sole mean s of detecting cervicalcancer. Both false-positive and false-negative reports dooccur. . 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) Comments: Cristal Pisano Assistant Clinical Director Plan of Care Name Dates Details Instructions [...] Tests Indication: Headache Headache : Reviewed Supervisor [employer] Hand Letter Indication: Headache Hypertensive heart disease without [...] Epigastric pain Epigastric pain : Reviewed Supervisor [employer] Hand Letter Indication: Epigastric pain Epigastric pain : [...] reflux disease) Planned Observations Metabolic Panel, Basic (33306)Indication: Therapeutic drug monitoring On: :13 Request Comments: give to jud to review HEPATIC FUNCTION PANEL (41616)Indication: Common bile duct dilation On: :18 Request HEPATIC FUNCTION PANEL (33159)Indication: Epigastric pain On: 88-Nkb-579560:51 Request LIPID PANEL (03958)Indication: Hypercholesteremia On: :25 Request TSH (75086)Indication: Abnormal TSH On: :21 Request T4, FREE (THYROXINE) (96904)Indication: Abnormal TSH On: : Request T3, FREE (TRIDOTHYRONINE) (42539)Indication: Abnormal TSH On: :21 Request TSH (72470)Indication: Hypercholesteremia On: :14 Request URINALYSIS, W/ MICRO (62479)Indication: Hypertensive heart disease without congestive heart failure On: :14 Request MICROALBUMIN: CREATININE RATIO (36907) AND (79491)Indication: Hypertensive heart disease without congestive heart failure On: :14 Request METABOLIC PANEL, COMPREHENSIVE (04295)Indication: Hypertensive heart disease without congestive heart failure On: :14 Request LIPID PANEL (05813)Indication: Hypercholesteremia On: :14 Request CBC W/AUTO DIFF WBC (24386)Indication: Hypertensive heart disease without congestive heart failure On: :14 Request Cryptosporidium Sp Ag, Direct Fluorescent Ab (14190)Indication: Diarrhea On: :44 Request GIARDIA LAMBLIA ANTIBODY (10023)Indication: Diarrhea On: :43 Request C-DIFFICILE, STOOL (05784)Indication: Diarrhea On: 43 Request OVA & PARASITE DIR SMEAR (26333)Indication: Diarrhea On: :43 Request OCCULT BLOOD FECES SCREEN (99185)Indication: Diarrhea On: :43 Request LEUKOCYTE COUNT, FECAL (40095)Indication: Diarrhea On: 43 Request KVNG CULTURE-STOOL (99767)Indication: Diarrhea On: 22-Oct-20159:43 Request FECAL OCCULT HGB ASSAY- tubes sent home (44587)Indication: Encounter for Medicare annual wellness exam On: :28 Request TSH (27460)Indication: Hypertensive heart disease without congestive heart failure On: 47-Aft-153531:27 Request URINALYSIS, W/ MICRO (88636)Indication: Hypertensive heart disease without congestive heart failure On: 10-Kyj-821409:27 Request MICROALBUMIN: CREATININE RATIO (47497) AND (63943)Indication: Hypertensive heart disease without congestive heart failure On: 99-Ils-681045:27 Request METABOLIC PANEL, COMPREHENSIVE (18443)Indication: Hypertensive heart disease without congestive heart failure On: : Request CBC WITH MANUAL DIFF (90684)Indication: Hypertensive heart disease without congestive heart failure On: 48-Obm-887058:27 Request LIPID PANEL (07484)Indication: Hypercholesteremia On: 05-Feb-2014 Request URINE KVNG CULTURE-HE COL COUNT (28252)Indication: Urinary frequency On: :17 Request Magnesium (24439)Indication: Hypopotassemia On: 57-Sib-492163:50 Request Metabolic Panel, Basic (55305)Indication: Hypopotassemia On: 38-Dft-720972:49 Request TSH (79498)Indication: Hypercholesteremia On: :09 Request URINALYSIS, W/ MICRO (09285)Indication: Hypertensive heart disease without congestive heart failure On: :09 Request MICROALBUMIN: CREATININE RATIO (06704) AND (80211)Indication: Hypertensive heart disease without congestive heart failure On: :09 Request METABOLIC PANEL, COMPREHENSIVE (54407)Indication: Hypertensive heart disease without congestive heart failure On: :09 Request LIPID PANEL (24713)Indication: Hypercholesteremia On: :09 Request CBC WITH MANUAL DIFF (61676)Indication: Hypertensive heart disease without congestive heart failure On: :09 Request URINE KVNG CULTURE-HE COL COUNT (93585)Indication: Dysuria On: 1-Jyr-614884:00 Request Glucose, PP/2 Hour (63236)Indication: Other specified abnormal findings of blood chemistry On: :21 Request HEPATIC FUNCTION PANEL (64803)Indication: Hypercholesteremia On: :57 Request LIPID PANEL (54126)Indication: Hypercholesteremia On: :57 Request Comments: DO IN 3 MONTHS Glucose, PP/2 Hour (19927)Indication: Other specified abnormal findings of blood chemistry On: 57 Request TRAN (ANTINUCLEAR ANTIBODY) (23074)Indication: Pain in unspecified joint On: Request C-REACTIVE PROTEIN (16590)Indication: Pain in unspecified joint On: Request CBC WITH MANUAL DIFF (93531)Indication: Pain in unspecified joint On: Request CCP ANTIBODY (72205)Indication: Pain in unspecified joint On: Request METABOLIC PANEL, COMPREHENSIVE (17591)Indication: Pain in unspecified joint On: Request RHEUMATOID FACTOR-QUANT (89968)Indication: Pain in unspecified joint On: : Request SED RATE ERYTHROCYTE (67787)Indication: Pain in unspecified joint On: Request TSH (64641)Indication: Pain in unspecified joint On: Request FECAL OCCULT- Tubes sent home (63148)Indication: Benign essential hypertension On: Request TSH (74212)Indication: Benign essential hypertension On: Request URINALYSIS W/O MICRO (99351)Indication: Benign essential hypertension On: Request MICROALBUMIN: CREATININE RATIO (54109) AND (91300)Indication: Benign essential hypertension On: Request METABOLIC PANEL, COMPREHENSIVE (28052)Indication: Benign essential hypertension On: Request LIPID PANEL (43402)Indication: Benign essential hypertension On: : Request CBC WITH MANUAL DIFF (86074)Indication: Benign essential hypertension On: : Request HEPATIC FUNCTION PANEL (85441)Indication: Hypercholesteremia On: 0-Eor-219522:56 Request Comments: DO IN 3 MONTHS LIPID PANEL (82864)Indication: Hypercholesteremia On: 8-Hib-068413:56 Request URINALYSIS W/O MICRO (93275)Indication: Hypertension On: :51 Request TSH (63250)Indication: Hypertension On: :51 Request MICROALBUMIN URINE QUANT (33277)Indication: Hypertension On: :51 Request METABOLIC PANEL, COMPREHENSIVE (57761)Indication: Hypertension On: :50 Request LIPID PANEL (73014)Indication: Hypertension On: :50 Request CBC WITH MANUAL DIFF (70277)Indication: Hypertension On: :50 Request Planned Encounters Medical; [...] FLAT PLATE AND ERECT On: 21-Jun-2018 Intent (24212)By: Jud Samaniego CNP X-RAY OF CERVICAL SPINE, TWO VIEWS On: 02-Jun-2018 Intent (83222)By: Jessica Corona DO, DO, Kathleen Radiology - Lumbar SpineBy: Mohamud, On: 25-May-2018 Intent Addie ELECTROCARDIOGRAM, COMPLETE (ECG) On: 04-May-2018 Intent (16965)By: Jessica Corona DO Comments: nsr / no acute chg - pvc present and IVCD Jessica SCHROEDER FDAB-WG-SUYL BEHAVIORAL COUNSELING FOR On: 28-Apr-2018 Intent OBESITY, 15 MINUTES (G0447)By: Jessica Corona DO, DO, Kathleen DEXA SCAN AXIAL SKELETON (44329)By: On: 28-Apr-2018 Intent Jessica Corona DO, DO, Kathleen MRCP (MAGNETIC RESONANCE On: 06-Feb-2018 Intent CHOLANGIOPANCREATOGRAPHY) (S8037)By: Jessica Corona DO, DO, Kathleen ULTRASOUND OF UPPER ABDOMEN (22993)By: On: 27-Jan-2018 Intent Jessica Corona DO, DO, Kathleen Comments: attention size of CBD SCREENING DIGITAL TOMOSYNTHESIS OF On: 09-Jan-2018 Intent BREAST (41067)By: Addie Odell LPN ELECTROCARDIOGRAM, COMPLETE (ECG) On: 03-Aug-2017 Intent (97665)By: Jessica Corona DO Comments: sinus vinicio no new acute chg , Jessica MAMMOGRAM BREAST BILATERAL SCREENING On: 03-Jul-2015 Intent DIGITAL (48688)By: Jessica Corona DO, DO, Kathleen Radiology - ChestBy: Jud Samaniego CNP On: 26-May-2015 Intent Aerosol Treatment (95230)By: Danette SPRINGER, On: 26-May-2015 Intent Mildred Aerosol Treatment (65948)By: Froylan KENT, On: 05-May-2015 Intent Sandy Radiology - Lumbar SpineBy: Danette SPRINGER, On: 15-Apr-2015 Intent Jud Gunter Toradol Injection, 30 mg (J1885)By: On: 11-Apr-2015 Intent Jud Samaniego CNP ADMINISTRATION OF PNEUMOCOCCAL VACCINE On: 10-Jun-2014 Intent (G0009)By: Jessica Corona DO, DO, Kathleen PNEUM VAC ADLT/IMUMNOSPR, SBC/INTRM On: 10-Jun-2014 Intent (60519)By: Jessica Corona DO Comments: lot: [id number]: 03/22/15site/route: L del/IMamt: 0.5mLVIS signed when applicableJULIEN Rod DO, Kathleen RNEO-BW-ICLU BEHAVIORAL COUNSELING FOR On: 10-Jun-2014 Intent OBESITY, 15 MINUTES (G0447)By: Jessica Corona DO, DO, Kathleen BILATERAL MAMMOGRAMS (83503)By: Chloe On: 04-Jun-2014 Intent Jessica SCHROEDER DO, Kathleen EKG (09698)By: Jessica Corona DO On: 04-Feb-2014 Intent Jessica Corona DO Comments: nsr no acute cg Eprescribed prescriptions (G8553)By: On: 16-Nov-2013 Intent Jessica Corona DO, DO, Kathleen gastric emptying studyBy: Chloe SCHROEDER, On: 10-Oct-2013 Intent Jessica Proctor DO FLU VAC, SPLIT, >3 YEARS, INTRAMUSC On: 06-Sep-2013 Intent (52175)By: Addie Odell LPN Comments: Lot:[id number]:6.14Amt:0.5mlRoute:IMSite: L DltdGiven By: DONTE FontenotVIS signed ADMINISTRATION OF INFLUENZA VIRUS On: 06-Sep-2013 Intent VACCINE (G0008)By: Addie Odell LPN EKG (29776)By: Jessica Corona DO On: 26-Mar-2013 Intent Jessica Corona DO Comments: nsr no acute ischemic changes/ borderline LVH Eprescribed prescriptions (G8553)By: On: 26-Mar-2013 Intent Manreba Viola Eprescribed prescriptions (G8553)By: On: 23-Feb-2013 Intent ManShaye brittonsea MAMMOGRAM, SCREENING, BOTH BREASTS On: 19-Jan-2013 Intent (59982)By: Jessica Corona DO, DO, Kathleen CT - Abdomen & Pelvis (IV Contrast On: 28-Aug-2012 Intent Needed)By: Jessica Corona DO, DO, Kathleen Eprescribed prescriptions (G8553)By: On: 28-Aug-2012 Intent Addie Odell LPN DRAIN/INJECT, JOINT/BURSA (15533)By: On: 25-Feb-2012 Intent Jessica Corona DO, DO, Kathleen Comments: inject 2 cc marcaine 1 cc kenolog Radiology - Knee - RightBy: Chloe SCHROEDER, On: 31-Jan-2012 Intent Jessica Corona DOJessica Eprescribed prescriptions (G8553)By: On: 25-Oct-2011 Intent Jessica Corona DO, DO, Kathleen TDAP VACCINE >7 IM (01078)By: Chloe On: 02-Jul-2011 Intent Jessica SCHROEDER DO, Kathleen Comments: 0.5cc given im rt dltd lot [id number] exp 08-11-13 EKG (88237)By: Jessica Corona DO On: 01-Feb-2011 Intent Jessica Corona DO Comments: nsr no acute changes-- borderline LVH -- but seen on echo best Bio Z (73841)By: Jessica Corona DO On: 01-Feb-2011 Intent Jessica [...] On: 18-Aug-2009 Intent Jessica Proctor DO EKG (61450)By: Jessica Corona DO On: 18-Aug-2009 Intent Jessica Corona DO Comments: nsr no acute changes Pulse Oximetry (16308)By: Chloe SCHROEDER On: 05-Mar-2009 Intent Jessica Proctor DO Comments: 93% RA Aerosol Treatment (64615)By: Chloe SCHROEDER On: 05-Mar-2009 Intent Jessica Proctor DO Comments: better air exchange no wheeze Solu- Medrol Injection, 125mg On: 05-Mar-2009 Intent (J2930)By: Jessica Cornoa DO Comments: injection given in left glutues alvarado. Pt tolerated well. [id number] Jessica SCHROEDER EKG (50421)By: Jessica Corona DO On: 25-Feb-2008 Intent Jessica [...] failure Hypercholesteremia : DISCONTINUED - LIPID PANEL (29493) Indication: Hypercholesteremia Hypercholesteremia : DISCONTINUED - TSH (79428) Indication: Hypercholesteremia Hypertensive heart disease without congestive heart failure : DISCONTINUED - URINALYSIS, W/ MICRO (19444) Indication: Hypertensive heart disease without congestive heart failure Hypertensive heart disease without congestive heart failure : DISCONTINUED - MICROALBUMIN: CREATININE RATIO (56840) AND (74948) Indication: Hypertensive heart disease without congestive heart failure Hypertensive heart disease without congestive heart failure : DISCONTINUED - METABOLIC PANEL, COMPREHENSIVE (04225) Indication: Hypertensive heart disease without congestive heart failure Hypertensive heart disease without congestive heart failure : DISCONTINUED - CBC WITH MANUAL DIFF (16555) Indication: Hypertensive heart disease without congestive heart [...] are helping. 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 The patient has noticed [...] patient does not have durable power of low emission automobile designer or living will. The patient has noticed [...]
--- OUTSIDE RECORDS SUMMARY | 2018-12-17 17:06 | XMS RPT_ITS | Continuity of Care Document ---
:1950 Author Organization [facility] Address [address] [facility] [place] [address] Phone Care Team Providers Name Role Phone Jessica Corona DO Unavailable Marcy Allen Unavailable Huber MCKAY, Dr. Benitez Unavailable [facility], [facility] Unavailable DONTE Odell Unavailable Unavailable Emily [...] of colon) (Z12.11, V76.51) Comments: scope 2016- [facility] 2103 Status: Active Common bile duct dilation [...] Start : 25-May-2018 End : 28-May-2018 Inactive Comments:GAKIGQljeygoe-121Meanlucy-864Pphljdoyo-000OD Atsd-675IY-Zalknqih of Right Side (M54.31)#Three CELEBREX, 200MG (Oral [...] Quantity: 6 {Tablet} Refills: 0 Ordered:21-Aug-2010 Addie dOell LPN Start : 21-Aug-2010 End : 24-Aug-2010 [...] Comments: improvign for cough and sx at [facility] -- try cont albluterol, do muciinex and [...] Stress Report Result: Comments: See Note; NOTES: [facility] Cardiovascular Services [address] [facility] [facility] [place] [address] MR#: [id number] Acct: [id number] Name: NEISHA TOBAR Rep #: [id number] : 68 From: Baron Gonzalez MD Primary [...] DO Date Dictated: 10/02/188 Date Transcribed: 10/02/181447 Bus And Trolley Inspecting Dispatcher: [place] Signed 28-Sep-2018 Inital Evaluation (1) - PT Result: Comments: See Note; NOTES: [facility] 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 HTN. GERD. [...] INDEP GAIT AND TRANSFERS. 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 TOMI UE'S WFL. [...] to be FAXED BACK to us at [phone] for Medicare purposes. Please let me know if there are questions or concerns re garding this plan of care. Physician Signature: Date: <Electronically signed by Maliha Rudolph PT, Cert. MDT> 09/28/18 1313 CC: Jessica Corona DO NAZANIN Signed For Medicare only, by signing this I certify the plan of care. Physicians Signature Date 24-Sep-2018 Renal Artery Duplex Result: Comments: See Note; NOTES: [facility] Cardiovascular Services [address] [place] [address] Renal Artery Duplex Ultrasound 09/22/18 0802 MR#: [id number] Acct: [id number] Name: NEISHA TOBAR Rep #: [id number] : 1950 68 From: Ciro Maravilla MD Attending Dr: Jessica Corona DO Status: REG CLI Ordering Dr: Jessica Corona DO Date: 09/22/18 Location: [facility] Sex: F C Admitt ed: Reason [...] Dictated: 09/22/18 0802 Date Transcribed: 09/24/18 1013 Bus And Trolley Inspecting Dispatcher: Signed 18-Sep-2018 Kidney and Bladder Result: Comments: See Note; NOTES: [facility] Imaging Services [address] [place] [address] Kidney and Bladder MR#: [id number] Acct: [id number] Name: NEISHA TOBAR Rep #: [id number] : 1950 F 68 From: Jorge Holland MD PCP: Jessica Corona DO Status: REG CLI Study: Kidney and Bladder Date of Exam: 09/18/18 Exam# [id number] Ordering Dr: Jessica Corona DO STUDY: RENAL [...] Service support , CC: Jessica Corona DO Bus And Trolley Inspecting Dispatcher: Signed 12-Sep-2018 12 Lead Electrocardiogram Result: Comments: See Note; NOTES: [facility] Cardiovascular Services [address] [place] [address] 12 Lead EKG 09/09/18 0949 MR#: [id number] Acct: [id number] Name: NEISHA TOBAR ep #: [id number] : 1950 68 From: Ian Gudino MD [...] Abnormal ECG Confirmed by TERESE MCKAY, IAN ([id number]), food expeditor CHARITY VILLEGAS ([id number]) on 09/12/2018 11:06:08 AM Referred By: Devora Corona Confirmed By:IAN GUDINO MD 09/12/18 1106 Date Ian Gudino MD CC: Anel Hunter MD; Jessica Chloe SCHROEDER Signed 09-Sep-2018 Emergency Department Summary Result: Comments: See Note; NOTES: [facility] Medical Records Department [address] [place] [address] Emergency Department Summary 09/09/18 0934 MR#: [id number] Acct: [id number] Name: NEISHA TOBAR Rep #: [id number] : 1950 68 From: Anel Hunter MD [...] Hypertension, improved This note was generated with DailyBooth dictation software. It may contain incorrect words, [...] problems, contact your Primary Care Provider. Call [employer] Registry ([phone]) or report to the [facility] Emergency Room. Call 911 if necessary. 09/09/18 1633 <Electronically signed by Anel Hunter MD> Date Anel Hunter MD Cos igner Signature (If Indicated): Date CC: Jessica Corona DO 09-Sep-2018 Discharge Instruction Result: Comments: See Note; NOTES: [facility] Medical Records Department [address] [place] [address] Discharge Instruction 09/09/18 1203 MR#: [id number] Acct: [id number] Name: Lydia TOBAR Rep #: [id number] : 1950 68 From: Anel Hunter MD [...] your Primary Care Provider. Call [facility] ([phone]) or report to the closest Emergency Room. Call 911 if necessary. 09/09/18 1207 < Electronically signed by Anel Hunter MD> Date Anel Hunter MD Cosigner Signature (If Indicated): Date CC: Jessica Corona DO 09-Sep-2018 Brain/Head without Contrast Result: Comments: See Note; NOTES: [facility] Imaging Services [address] [place] [address] Brain/Head without Contrast MR#: [id number] Acct: [id number] Name: NEISHA TOBAR Rep #: [id number] : 1950 F 68 From: Italo Brown DO PCP: Jessica Corona DO Status: REG ER Study: Brain/Head without Contrast Date of Exam: 09/09/18 Exam# [id number] Ordering Dr: Anel Hunter MD [facility]: CT BRAIN WITHOUT CONTRAST REASON FOR [...] CC: Anel Hunter MD; Jessica Corona DO Bus And Trolley Inspecting Dispatcher: Signed 21-Jun-2018 Abd Inc Decub and/or Erect Result: Comments: See Note; NOTES: [facility] Imaging Services [address] [place] [address] Abd Inc Decub and/or Erect MR#: [id number] Acct: [id number] Name: NEISHA TOBAR Rep #: [id number] : 1950 F 68 From: Tapan Gore MD PCP: Jessica Corona DO Status: REG CLI Study: Abd Inc Decub and/or Erect Date of Exam: 06/21/18 Exam# [id number] Ordering Dr: Jud Samaniego Y: X-RAY - [...] , Service support , CC: Jud Samaniego FIRE ASSISTANT; Jessica Corona DO Bus And Trolley Inspecting Dispatcher: Signed 02-Jun-2018 Cerv Spine 2 or 3 Views Result: Comments: See Note; NOTES: [facility] Imaging Services [address] [place] [address] Cerv Spine 2 or 3 Views MR#: [id number] Acct: [id number] Name: NEISHA TOBAR Rep #: [id number] : 1950 F 68 From: Jamil Paulson MD PCP: Jessica Corona DO Status: REG CLI Study: Cerv Spine 2 or 3 Views Date of Exam: 06/02/18 Exam# [id number] Ordering Dr: Jessica Corona DO UDY: X-RAY [...] Service support , CC: Jessica Corona DO Bus And Trolley Inspecting Dispatcher: Signed 25-May-2018 L/S Spine Min 4 Views Result: Comments: See Note; NOTES: [facility] Imaging Services [address] [place] [address] L/S Spine Min 4 Views MR#: [id number] Acct: [id number] Name: NEISHA TOBAR Rep #: [id number] : 1950 F 68 From: Mikayla Guerrier MD PCP: Jessica Corona DO Status: REG CLI Study: L/S Spine Min 4 Views Date of Exam: 05/25/18 Exam# [id number] Ordering Dr: Addie Mallory FIRE ASSISTANTSteven STUDY: X -RAY - LUMBAR SPINE REASON [...] , CC: DEYSI Mallory; Jessica Corona DO Bus And Trolley Inspecting Dispatcher: Signed 09-May-2018 Dexa Bone Density Study Result: Comments: See Note; NOTES: [facility] Imaging Services [address] [place] [address] Dexa Bone Density Study MR#: [id number] Acct: [id number] Name: NEISHA TOBAR Rep #: [id number] : 1950 F 68 From: Kvng Cutler MD PCP: Jessica Corona DO Status: REG CLI Study: Dexa Bone Density Study Date of Exam: 05/09/18 Exam# [id number] Ordering Dr: Jessica Corona DO STUDY: DUAL [...] Kvng Cutler MD at 8:25 EDT Tel [phone], Service support , CC: Jessica Corona DO Bus And Trolley Inspecting Dispatcher: Signed 14-Feb-2018 MRCP Abdomen without Contrast Result: Comments: See Note; NOTES: [facility] Imaging Services [address] [place] [address] MRCP Abdomen without Contrast MR#: [id number] Acct: [id number] Name: NEISHA TOBAR Rep #: [id number] : 1950 F 68 From: Vj Rajput MD PCP: Jessica Corona DO Status: REG CLI Study: MRCP Abdomen without Contrast Date of Exam: 02/14/18 Exam# [id number] Ordering Dr: Rigo Corona DO STUDY: MR [...] Service support , CC: Jessica Corona DO Bus And Trolley Inspecting Dispatcher: Signed 03-Feb-2018 Abdomen Limited Result: Comments: See Note; NOTES: [facility] Imaging Services [address] [place] [address] Abdomen Limited MR#: [id number] Acct: [id number] Name: NEISHA TOBAR Rep #: [id number] OB: 1950 F 68 From: Kvng Cutler MD PCP: Jessica Corona DO Status: REG CLI Study: Abdomen Limited Date of Exam: 02/03/18 Exam# [id number] Ordering Dr: Jessica Corona DO STUDY: ABDOMINAL [...] Kvng Cutler MD at 13:52 EDT Tel [phone], Service support , CC: Jessica Corona DO Bus And Trolley Inspecting Dispatcher: Signed 31-Jan-2018 SCREENING MAMM (CAD), BILAT Result: Comments: See Note; NOTES: [facility] Imaging Services [address] [place] [address] SCREENING MAMM (CAD), BILAT MR#: [id number] Acct: [id number] Name: NEISHA TOBAR Rep #: [id number] : 1950 F 67 From: Kvng Cutler MD PCP: Jessica Corona DO Status: REG CLI Study: SCREENING MAMM (CAD), BILAT Date of Exam: 01/31/18 Exam# [id number] Ordering Dr: Lidia Corona DO MAMMOGRAPHY - [...] delay biopsy of a clinically suspicious abnormality. [id number] Electronically Signed: Kvng Cutler MD at 14:26 EDT Tel [phone], Service supp ort , CC: Jessica Corona DO Bus And Trolley Inspecting Dispatcher: Signed 28-Aug-2015 Bilat Scrn Digital AND CAD Result: Comments: See Note; NOTES: [facility] Imaging Services [address] [place] [address] Breast Imaging Report MR#: [id number] Acct: [id number] Name: NEISHA TOBAR Rep # : [id number] : 1950 F 65 From: vKng Cutler MD PCP: Jessica Corona DO Status: REG CLI Study: Bilat Scrn Digital AND CAD Date of Exam: 08/28/15 Exam# [id number] Ordering Dr: Raymond Corona DO MAMMOGRAPHY - [...] be sent to the patient by the [facility] within 30 days. Approximately 10% of breast cancers are not detected by mammography. A normal mammogram should not delay biopsy of a clinically suspicious abnormality. Electronically Mirian d: Kvng Cutler MD at 8:05 EDT Tel [phone], Service support [phone], CC: Jessica Corona DO Bus And Trolley Inspecting Dispatcher: Signed 03-Jun-2015 PT Discharge Summary Result: Comments: See Note; NOTES: [facility] [address] [place] [address]. [address] [place], [place] [address] Fax REHABILITATION SERVICES DISCHARGE SUMMARY MR#: [id number] Acct: [id number] Name: NEISHA TOBAR Rep #: [id number] : 1950 65 From: Sandy Nelson Referring [...] clinic. Sandy Nelson, PT T: NTS JOB: [id number] <Electronically signed by Sandy Nelson > 06/03/15 1726 CC: Signed 26-May-2015 Chest PA and Lateral Result: Comments: See Note; NOTES: [facility] Imaging Services [address] [place] [address] Radiology Report MR#: [id number] Acct: [id number] Name: NEISHA TOBAR Rep #: [id number] : 1950 F 65 From: Zoila Allen MD PCP: Jessica Corona DO Status: REG CLI Study: Chest PA and Lateral Date of Exam: 05/26/15 Exam# [id number] Ordering Dr: Jud Samaniego STUDY: X-RAY C [...] MD at 12:07 EDT , Service support [phone], RAD /Chest PA and Lateral IMPRESSION: There is a left midlung field calcified granuloma. There is bilateral lower lobe scarring/atelectasis. No radiographic evidence of bronchitis. Electronically Sig kyle: Zoila Allen MD at 12:07 EDT , Service support [phone], CC: Jud Samaniego; Jessica Corona DO Bus And Trolley Inspecting Dispatcher: Signed 13-May-2015 Inital Evaluation - PT Result: Comments: See Note; NOTES: [facility] [address] [place] [address] Fax REHABILITATION SERVICES INITIAL EVALUATION MR#: [id number] Acct: [id number] Name: NEISHA TOBAR Rep #: [id number] : 1950 65 From: Sandy Nelson Referring [...] needed. Sandy Nelson, PT T: NTS JOB: [id number] <Electronically signed by Sandy Nelson > 05/13/15 0818 CC: Signed For Medicare only, by signing this I certify the plan of care. Physicians Signature Date 16-Apr-2015 L/S Spine Min 4 Views Result: Comments: See Note; NOTES: [facility] Imaging Services [address] [place] [address] Radiology Report MR#: [id number] Acct: [id number] Name: NEISHA TOBAR Rep #: [id number] : 1950 F 65 From: Rod Pollard DO PCP: Jessica Corona DO Status: REG CLI Study: L/S Spine Min 4 Views Date of Exam: 04/16/15 Exam# [id number] Ordering Dr: Jud Samaniego STUDY: X-RA Y [...] Rod Pollard DO at 16:48 EDT Tel [phone], Service support [phone], RAD/L/S Spine Min 4 Views IMPRESSION: Degenerative ch anges of the spine, as detailed above. Electronically Signed: Rod Pollard DO at 16:48 EDT Tel [phone], Service support [phone], CC: Jud Samaniego; Rigo Corona DO Bus And Trolley Inspecting Dispatcher: Signed 11-Jun-2014 Bilat Scrn Digital & CAD Result: Comments: See Note; NOTES: [facility] Imaging Services [address] [place] [address] Breast Imaging Report MR#: [id number] Acct: [id number] Name: NEISHA TOBAR Rep #: [id number] : 1950 F 64 From: Ian Lamas MD PCP: Jessica Corona DO Status: REG CLI Exam# [id number] Ordering Dr: Jessica Corona DO MAMMOGRAPHY - [...] 17:24 EDT Tel , Ser vice support [phone], CC: Jessica Corona DO Bus And Trolley Inspecting Dispatcher: Signed 29-Oct-2013 Gastric Emptying Study Result: Comments: See Note; NOTES: [facility] Imaging Services [address] [place] [address] Nuclear Medicine Report MR#: [id number] Acct: [id number] Name: NEISHA TOBAR Rep #: [id number] : 1950 F 63 From: Celestine Garza DO PCP: Status: REG CLI Study: Gastric Emptying Study Date of Exam: 10/29/13 Exam# [id number] Ordering Dr: Jessica Corona DO CLINICAL: 63 [...] M.D. at 22:51 EST , Service support [phone], CC: Jessica Cornoa DO Bus And Trolley Inspecting Dispatcher: Signed Family History Unknown Family Member [...] Active Vital Signs Date Test Result Details 8-Fgv-357445:05 Pulse 62 /min Comments: Pattern: Regular Respiration [...] kg/m2 Body Surface Area Calculated 1.94 m2 08-Vnc-754364:56 Pulse 65 /min Comments: Pattern: Regular Respiration [...] kg/m2 Body Surface Area Calculated 1.94 m2 18-Rjt-14069:24 Comments: recheck 230/100 Temperature 98 f Comments: [...] see. but her last appt was in [place] and had a glaucoma test donehearing wml [...] Results Date Description Value Details :45 ALDOSTERONE (88817) Comments: PATIENT NOT FASTINGPERFORMED BY: [facility] [address] [id number] Aldosterone 19.6 ng/dL (Normal) Range: 0.0-30.0 Comments: This test was developed and its performance characteristicsdetermined by [facility]. It has not been cleared or approvedby the Food and Drug Administration. :45 RENIN (05960) Comments: PATIENT NOT FASTINGPERFORMED BY: [facility] [address] [id number] Renin Activity, Plasma 0.846 {ng/mL/hr} Range: 0.167-5.380 (Normal) Comments: This test was developed and its performance characteristicsdetermined by [facility]. It has not been cleared or approvedby the Food and Drug Administration. 45-Llj-58270:00 METANEPHRINES - URINE (04995) Comments: PATIENT NOT FASTINGPERFORMED BY: [address] [id number] Metanephrine, U,24hr 84 {ug/24_hr} (Normal) Range: 45-290 Comments: (Hypertensive) >17 years 11 months: 35 - 460 Metanephrine, Ur 84 ug/L (Normal) Normetanephr.,U,24h 352 {ug/24_hr} (Normal) Range: 82-500 Comments: (Hypertensive) >17 years 11 months: 110 - 1050 Normetanephrine, Ur 352 ug/L (Normal) 08-Hio-72800:00 CATECHOLAMINES TOTAL, URINE Comments: PATIENT NOT FASTINGPERFORMED BY: [address] [id number] Information: START 09/14/18 @5AM (52416) Dopamine, Ur, 24hr 155 {ug/24_hr} (Normal) Range: 0-510 Dopamine, Urine 155 ug/L (Normal) Comments: Verified by repeat analysis Norepinephrine,U,24h 52 {ug/24_hr} (Normal) Range: 0-135 Norepinephrine, Ur 52 ug/L (Normal) Comments: Verified by repeat analysis Epinephrine, U, 24hr 8 {ug/24_hr} (Normal) Range: 0-20 Epinephrine, Urine 8 ug/L (Normal) Comments: Verified by repeat analysis 04-Eyx-13673:00 URINE VMA (96728) Comments: PATIENT NOT FASTINGPERFORMED BY: [address] [id number] VMA, Urine, 24hr 2.4 {mg/24_hr} (Normal) Range: 0.0-7.5 Comments: This test was developed and its performance characteristicsdetermined by [facility]. It has not been cleared or approvedby the Food and Drug Administration. VMA, Urine 2.4 mg/L (Normal) 15-Wtv-99437:38 Basic Metabolic Profile (BMP) Comments: [facility] [address] [place], [place], [id number] GAP 7 (Normal) Range: 5-15 CO2 27.0 [...] A.D.A. criteria.Please note revised GLUCOSE reference range fdjyavttr58/02/2018. 71-Tkp-13492:38 CBC W/Diff, Automated Comments: [facility] [address] [place], [place], [id number] Absolute Lymph 1.21 {X10_3/ul} (Normal) Range: 0.83-4.51 [...] 4.2-5.4 WBC 5.8 K/mm3 (Normal) Range: 4.4-11.0 58-Dpm-695965:49 Basic Metabolic Profile (BMP) Comments: [facility] [address] [place], [place], [address] GAP 5 (Normal) Range: 5-15 CO2 30.0 [...] A.D.A. criteria.Please note revised GLUCOSE reference range zhudfozmu60/02/2018. 6-Vri-573474:47 URINE KVNG CULTURE-HE COL Comments: PERFORMED BY: [facility] Qmfntp5679 [facility] [id number] Information: [id number] SRC:UR COUNT (90043) Antimicrobial MIHEAD (Normal) Comments: S = Susceptible; [...] Final report Culture,Comprehensive (Abnormal) 21-Jun-20188:17 Urinalysis, Office (52407) UA - LEUKOCYTE ESTERASE Negative (Normal) UA - NITRITE Negative (Normal) URINE UROBILINGN HE TIMED Normal mg/dL (Normal) UA - PROTEIN Negative mg/dL (Normal) UA - PH 7.5 (Normal) UA - BLOOD Negative (Normal) UA - SPECIFIC GRAVITY 1.010 (Normal) UA - KETONES Negative mg/dL (Normal) UA - BILIRUBIN Negative (Normal) UA - GLUCOSE Negative (Normal) 16-Qtk-81266:39 CBC, PLATELETS & AUT DIFF Comments: PATIENT NOT FASTINGPERFORMED BY: [facility] Wnvtyt3438 [facility] [id number] (11585) Immature Grans (Abs) 0.0 {x10E3/uL} (Normal) Range: [...] HIGH SENS(hsCRP) Comments: PATIENT NOT FASTINGPERFORMED BY: [employer] [facility] [id number] (78991) C-Reactive Protein, Cardiac 2.22 mg/L (Normal) Range: 0.00-3.00 Comments: Relative Risk for Future Cardiovascular Event Low <1.00 Average 1.00 - 3.00 High >3.00 :39 ESR-F (SED RATE ERYTHROCYTE - Comments: PATIENT NOT FASTINGPERFORMED BY: [facility] CenterQbqdqd4769 [facility] [id number] FEMALE) (16733) Sedimentation Rate-Westergren 9 mm/h (Normal) Range: 0-40 :39 LDH (LD) (LACTATE DEHYDROGENASE) Comments: PATIENT NOT FASTINGPERFORMED BY: [facility] HospitalEpypor3251 [facility] [id number] (44963) LDH 209 [iU]/L (Normal) Range: 119-226 Hemoglobin A1c 5.5 % (Normal) Comments: PATIENT NOT FASTINGPERFORMED BY: [facility] CenterFvyzxq7271 [facility] [id number] 3:06 Range: 4.8-5.6 Comments: . Pre-diabetes: 5.7 - 6.4 Diabetes: >6.4 Glycemic control for adults with diabetes: <7.0 Written Authorization WAR (Normal) Comments: PATIENT NOT FASTINGPERFORMED BY: [facility] Fkgwmd7478 [facility] [id number] 3:06 Comments: Written Authorization Received.Authorization received from ANNETTE POWELL LPN [id number] by Lidia Reddy 61-Yoz-962581:06 TSH (91707) Comments: PATIENT NOT FASTINGPERFORMED BY: [facility] Zqwfim8465 [facility] [id number] TSH 2.370 {uIU/mL} (Normal) Range: 0.450-4.500 09-Ruv-310222:06 METABOLIC PANEL, COMPREHENSIVE Comments: PATIENT NOT FASTINGPERFORMED BY: [facility] Fhwwfy0292 [facility] [id number] (45705) ALT (SGPT) 19 [iU]/L (Normal) Range: 0-32 [...] 8-27 Glucose 102 mg/dL (Abnormal) Range: 65-99 65-Qvp-340383:06 CBC W/AUTO DIFF WBC (66128) Comments: PATIENT NOT FASTINGPERFORMED BY: [facility] HospitalWqaidv4072 [facility] [id number] Immature Grans (Abs) 0.0 {x10E3/uL} (Normal) Range: [...] (Normal) Range: 3.4-10.8 :56 Free T3 Comments: [facility] [address] [place], [id number] FREE T3 2.7 pg/mL (Normal) Range: 2.18-3.98 :56 Lipid Profile Comments: [facility] [address] [place], [id number] VLDL 34 mg/dL (Normal) Range: 5-40 LDL [...] mg/dL High Risk :56 Liver Profile Comments: [facility] [address] [place], [id number] ; ov 03/20 D BILI 0.12 mg/dL (Normal) Range: 0.00-0.30 T BILI 0.50 mg/dL (Normal) Range: 0.20-1.00 ALT 24 U/L (Normal) Range: 13-56 ALK P 67 U/L (Normal) Range: 45-117 AST 19 U/L (Normal) Range: 15-37 GLOB 3.7 g/dL (Normal) Range: 2.2-4.2 ALB 3.8 g/dL (Normal) Range: 3.2-5.0 T PROT 7.5 g/dL (Normal) Range: 6.4-8.2 :56 T4 Free Direct Comments: [facility] [address] [place], [address] T4 FREE DIRECT 0.97 ng/dL (Normal) Range: 0.76-1.46 57-Hxr-67360:56 Thyroid Stim Hormone (TSH) Comments: [facility] [address] [place], [address] TSH 3.42 {uIU/mL} (Normal) Range: 0.358-3.74 2-Jnr-154243:52 GGTP 30 U/L (Normal) Comments: [facility] [address]jtvp[address] [place], [address] Range: 5-55 1-Keh-218286:52 Liver Profile Comments: [address] [place], [address] D BILI 0.15 mg/dL [...] T PROT 7.6 g/dL (Normal) Range: 6.4-8.2 3-Ehn-716051:36 Bilirubin, Direct Comments: LIVER AND GGTP FOR [facility] [address] [place], [address] D BILI 0.14 mg/dL (Normal) Range: 0.00-0.30 :36 CBC W/Diff, Automated Comments: LIVER AND GGTP FOR [facility] [address] [place], [id number] Absolute Lymph 1.45 {X10_3/ul} (Normal) Range: 0.83-4.51 [...] 4.2-5.4 WBC 6.4 K/mm3 (Normal) Range: 4.4-11.0 5-Juf-014701:36 Comprehensive Metabolic Profil Comments: LIVER AND GGTP FOR [facility] FOR [facility] [address] [place], [place], [address] GAP 9 (Normal) Range: 5-15 CO2 27.0 [...] 7-18 GLU 91 mg/dL (Normal) Range: 70-110 5-Edr-654403:36 GGTP 22 U/L (Normal) Comments: LIVER AND GGTP FOR [facility] Affxy[address]jn6[address] [facility] [place], [place], [id number] Range: 5-55 8-Oql-846003:36 Lipid Profile Comments: LIVER AND GGTP FOR [facility] [address] [place], [place], [address] VLDL 56 mg/dL (Abnormal) Range: 5-40 LDL [...] 200-240 mg/dL Borderline >240 mg/dL High Risk 5-Nne-089373:36 Microalb:Creat Ratio,Random UR Comments: LIVER AND GGTP FOR [facility] FOR [facility] [address] [place], [place], [address] MALB:CREAT 38.1 {mg/g_CRE} (Abnormal) MICROALBUMIN,UR 43.8 mg/L (Normal) UR CREAT 115.00 mg/dL (Normal) 9-Yft-045936:36 Thyroid Stim Hormone (TSH) Comments: LIVER AND GGTP FOR [facility] FOR [facility] [address] [place], [id number] TSH 4.13 {uIU/mL} (Abnormal) Range: 0.358-3.74 :36 Urinalysis, Complete Comments: LIVER AND GGTP FOR [facility] FOR [facility] was Urine Obtained? CLEAN [facility] [address] [place], [place], [id number] HYALINE CAST 0-5 SEEN {/lpf} Range: 0-5 [...] BIOPSY (CHOOSE SITE) See Note (Normal) Comments: [facility] [address] [place], [place], [address] 0:00 Comments: Patient: NEISHA TOBAR : 1950 (66/F) Acct Num: [id number] Phys: Steve Richard Unit Num: [id number] Loc: LABSPEC Specimen: [id number] Received: 02/11/16 - 0754 Spec Type: COLON BX TISSUES TISSUES: GROSS DESCRIPTION Received is one container labeled with the patient name and designated biopsy polyp right colon. The specimen consists of multiple irre gular fragments of light ramirez soft tissue that in aggregate measure 0.2 x 0.1 x 0.1 cm. The specimen is totally submitted in one cassette. / AM:chris 02/10/16 TC:5 CPT:56498 HEADER OPERATION: Colon oscopy with biopsy PRE-OP DIAGNOSIS: High-risk screen/polyp TISSUE SUBMITTED: Biopsy, polyp, right colon - rule out adenoma MICROSCOPIC DESCRIPTION Slides are reviewed. MICROSCOPIC DIAGNOS IS Right colon polyp, biopsy: Hyperplastic polyp. AM:crow 02/11/16 Signed Samuel Curtis 02/11/16 <signature on file> C difficile Toxins A+B, Negative (Normal) Comments: PATIENT NOT FASTINGPERFORMED BY: [facility] [id number] [facility] [id number] 3:19 EIA Cryptosporidium EIA Negative (Normal) Comments: PATIENT NOT FASTINGPERFORMED BY: [facility] [id number] [facility] [id number] 3:19 1-Uzg-535795:19 Giardia, EIA, Ova/Parasite Comments: PATIENT NOT FASTINGPERFORMED BY: [employer] [id number] [facility] [id number] Giardia lamblia Ag, Negative (Normal) EIA Result 1 NOCP (Normal) Comments: No ova, cysts, or parasites seen. Ova + Parasite Exam Final report Comments: These results were obtained using wet preparation(s) and trichromestained smear. This test does not include testing for Cryptosporidiumparvum, Cyclospora, or Microsporidia. (Normal) : Occult Blood, Fecal, Negative (Normal) Comments: PATIENT NOT FASTINGPERFORMED BY: [facility]6[address] [facility] [id number] 19 IA :19 Stool Culture Comments: PATIENT NOT FASTINGPERFORMED BY: [address] [id number] Information: SRC:ST STOOL E coli Shiga Toxin EIA Negative (Normal) Result 1 NCI (Normal) Comments: No Campylobacter species isolated. Campylobacter Culture Final report (Normal) Result 1 NSS (Normal) Comments: No Salmonella or Shigella recovered. Salmonella/Shigella Screen Final report (Normal) :19 White Blood Cells (WBC), Comments: PATIENT NOT FASTINGPERFORMED BY: [facility] [id number] Stool Result 1 NWBC (Normal) Comments: No white blood cells seen. White Blood Cells (WBC), Final report (Normal) Stool :54 CBC W/AUTO DIFF WBC Comments: PATIENT NOT FASTINGPERFORMED BY: [facility]6[address] [facility] [id number] Information: [id number] (55754) Immature Grans (Abs) 0.0 {x10E3/uL} (Normal) Range: [...] COMPREHENSIVE Comments: PATIENT NOT FASTINGPERFORMED BY: [facility] [id number] [facility] [id number] (09194) ALT (SGPT) 19 [iU]/L (Normal) Range: 0-32 [...] 99 mg/dL (Normal) Range: 65-99 :54 TSH (05409) Comments: PATIENT NOT FASTINGPERFORMED BY: [facility] Vdspns3927 [facility] [id number] TSH 2.210 {uIU/mL} (Normal) Range: 0.450-4.500 :05 Urinalysis, Office (02795) UA - LEUKOCYTE ESTERASE Negative (Normal) UA [...] CHOL 310 mg/dL (Abnormal) Comments: <200 mg/dL Zcogybiqo934-273 mg/dL Borderline>240 mg/dL High Risk TRIG 185 [...] (Normal) UCLAR Clear (Normal) UCOL Yellow (Normal) 25-Bsa-896254:26 HgA1C , Office (16833) HgA1C , Office 5.7 % (Normal) Range: [...] CHOL 286 mg/dL (Abnormal) Comments: <200 mg/dL Axkowjzgu461-574 mg/dL Borderline>240 mg/dL High Risk :14 MIACRE tMICROCREAT <TEST NOT PERFORMED> {mg/g_CRE} (Normal) MIALB < 5.0 mg/L (Normal) CREU 18.4 mg/dL (Normal) :14 TSH 3.54 {uIU/mL} (Normal) Range: 0.358-3.74 :14 [facility] 0 SEEN {/hpf} (Normal) UBAC [...] (Normal) UCLAR Clear (Normal) UCOL Yellow (Normal) 2-Ocb-565979:43 BILAT SCRN DIGITAL & CAD Radiology Report [...] Cutler M.D.January 23, 2013 at 12:21:32 PM [phone] Signed GP/GP If you are the referring physician and would like to consult with theradiologist who provided this interpretation, please contact Letty Mukherjee at [phone]. If this radiologist is unavailable, youwill be directed to another radiologist to as sist. If you are a patient with a question regarding this report, pleasecontactyour referring physician directly. Professional Interpretation Provided By: [employer], Phone ,Fax These documents contain legally protected [...] MD on 03/06/13 1713 Sign by: Kvng Culter MD :57 ABDOMEN/PELVIS WITH CONTRAST Radiology Report [...] narrowing at the L4, L5, and L5, Z5lnihao. IMPRESSION:Sigmoid diverticulosis. Signed:Kvng Cutler M.D.September 01, 2012 at 1:13:05 PM [id number] [phone] Signed GP/GP If you are the referring physician and would like to consult with theradiologist who provided this interpretation, please contact Letty Mukherjee at . If this radiologist is unavailable, youwill be directed to another radiologist to assist. If you are a patient with a question regarding this report, pleasecontactyour referring physician directly . Professional Interpretation Provided By: [employer], Phone , These documents contain legally protected [...] 09/01/12 1323 Sign by: Kvng Cutler MD 16-Rsk-978385:53 CRE GFRAA 109 mL/min (Normal) GFR 90 mL/min (Normal) CREAT 0.7 mg/dL (Normal) Range: 0.6-1.0 48-Upt-797009:41 KNEE,4 OR MORE VIEWS Radiology Report See [...] regarding t his report, please call our 25V8ittemad line @ Dictated on 01/31/12 1436 by Alec MCKAY,GabrieleTranscribed on 02/01/12 1327 by ITS IMPORTSign by Alec MCKAY,Kvng on 02/01/12 13 28 Sign by: Alec MCKAY,Kvng 1-Qqz-056022:36 CULTURE, URINE URINE CULTURE See Note {CFU/mL} (Normal) Comments: COLONY COUNT 25,000-50,000 ORGANISM 1: MIXED GRAM POSITIVE ORGANISMS :17 Urinalysis, Office (85442) UA - BILIRUBIN Negative (Normal) UA - [...] :34 TSH 3.22 {uIU/mL} (Normal) Range: 0.358-3.74 30-Nmu-368988:23 URINE KVNG CULTURE-IDENTIFICATN Comments: PATIENT NOT FASTINGPERFORMED BY: [facility] HospitalRcqcyz4223 [facility] [id number] Information: [id number] (30329) Antimicrobial MIHEAD (Normal) Comments: S = Susceptible; [...] primarily for treating urinary tract infections. (CLSI, M528-Z36,2009) Result 1 Klebsiella pneumoniae Comments: 3,000 Colonies/mL . (Normal) Urine Final report (Normal) Culture,Comprehensive 22-Rba-82194:52 Urinalysis, Office (49391) UA - BILIRUBIN Negative (Normal) UA - BLOOD Negative (Normal) UA - GLUCOSE Negative (Normal) UA - KETONES Negative mg/dL (Normal) UA - LEUKOCYTE ESTERASE Small (Normal) UA - NITRITE Negative (Normal) UA - PH 5.0 (Normal) UA - PROTEIN Negative mg/dL (Normal) UA - SPECIFIC GRAVITY 1.015 (Normal) URINE UROBILINGN HE TIMED Normal mg/dL (Normal) 9-Lxj-635210:44 TRANSVAGINAL NON- Radiology Report See Note (Normal) Comments: Exam Number: [id number] LINICAL:This is a 60-year-old female patient with [...] were not visualized. Reported By: KVNG CUTLER 6-Ore-461782:24 PELVIC (NON ) Radiology Report See Note (Normal) Comments: Exam Number: [id number] LINICAL:This is a 60-year-old female patient with [...] were not visualized. Reported By: KVNG CUTLER 28-Vzg-670148:53 URINE KVNG CULTURE-HE COL Comments: PATIENT NOT FASTINGPERFORMED BY: [facility]CoSt. [facility]'s HospitalZfimhi8455 [facility] [id number] Information: SRC:URT [id number] COUNT (24078) Result 3 BETAGB (Normal) Comments: Beta hemolytic [...] primarily for treating urinary tract infections. (CLSI, I364-W50,2009) Result 2 Klebsiella pneumoniae Comments: 100 Colonies/mL . (Normal) Urine Final report (Normal) Culture,Edna rankin :50 Urinalysis, Office (67816) UA - LEUKOCYTE ESTERASE Trace (Normal) UA - NITRITE Negative (Normal) URINE UROBILINGN HE TIMED Normal mg/dL (Normal) UA - PROTEIN Negative mg/dL (Normal) UA - PH 5.0 (Normal) UA - BLOOD Non Hemolyzed Trace (Normal) UA - SPECIFIC GRAVITY 1.010 (Normal) UA - KETONES Negative mg/dL (Normal) UA - BILIRUBIN Negative (Normal) UA - GLUCOSE Negative (Normal) 8-Ruj-224542:00 Urinalysis, Office (63486) UA - LEUKOCYTE ESTERASE Trace (Normal) UA [...] Comments: GLU,2HPPG 75gm GLUC PPG GLUP from 0902:I24530S. :34 CBC, EMPLOYEE M[facility] 34.4 g/dL (Normal) [...] CHOL 283 mg/dL (Abnormal) Comments: <200 mg/dL Owxddisbd708-554 mg/dL Borderline>240 mg/dL High Risk HDL 53 [...] Report See Note (Normal) Comments: Exam Number: [id number] CLINICAL:This is a 60-year-old female patient with [...] of the thyroid. Reported By: KVNG CUTLER 72-Phb-37812:10 COLON BX P-COLBX (Normal) Comments: OPERATIONColonoscopy with biopsyPRE-OPERATIVE DIAGNOSISDiarrheaPOST- OPERATIVE DIAGNOSISRule out microscopic colitisTISSUE SUBMITTEDA - Right colon biopsy, B - Left colon biopsyMICROSCOPIC DIAGNOSISA. R ight colon, biopsy:Fragments of colonic mucosa, no pathologic diagnosis.B. Left colon, biopsy:Fragments of colonic mucosa, no pathologic diagnosis.SJ:chris 03/20/10GROSS DESCRIPTIONA - Received in [facility] labeled with patient name and [...] cassette. / SJ:chris 03/19/10TC:4REPORT SIGNED: SHREE WEINSTEIN 03/20/1010-Feb-201051-Joo-411085:08 KNEE,4 OR MORE VIEWS (MT) Radiology Report See Note (Normal) Comments: Exam Number: [id number] CLINICAL:Pain X-RAY EXAMINATION LEFT KNEE TECHNIQUE:Four views of the knee. COMPARISON:None. FINDINGS:Normal visualized distal femur. Normal visualized proximal tibia. Normal visu alized proximal fibula. There is minimal narrowing of the medial femorotibial compartment.Normal lateral femorotibial compartment. Normal patellofemoral articulation. There is no demonstrated jointeffu tamia. There is no demonstrated soft tissue swelling. IMPRESSION:Chronic degenerative changes, as discussed above. Reported By: SURINDER WOODRUFF 98-Zcw-024711:00 SPINE, LUMBAR W/W/O CONTRAST Radiology Report See Note (Normal) Comments: Exam Number: [id number] CLINICAL:59-year-old female with displaced lumbar disk low [...] Reported By: LANDY HIGHTOWER M.D. :03 TRAN-D [id number] TRAN-DIRECT SeeNote (Normal) Comments: Result: Negative Performed At: [facility] [address] [id number] At: [facility] [place], [place] [id number] :03 ANTI-CCP 797268 6 {units} (Normal) Range: 0-19 Comments: Negative [...] Report See Note (Normal) Comments: Exam Number: [id number] BILATERAL SCREENING MAMMOGRAM COMPARISONComparison is made to [...] The mammogramswere also examined with computer-aided detection software(DocTree.). Reported By: CHUCK PEREZ M.D. 04-Vdf-409065:46 SHOULDER,MIN 2 VIEWS Radiology Report See Note (Normal) Comments: Exam Number: [id number] RIGHT SHOULDER HISTORYShoulder pain. TECHNIQUEFour views of [...] normal variant. Reported By: LUIS JORGE M.D. 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 Endocervical and/or squamous metaplasticcells (endocervical component) are present. COMM . (Normal) DIAGN Comment (Normal) Comments: NEGATIVE FOR INTRAEPITHELIAL LESION AND MALIGNANCY. HPV RFLX Comment (Normal) Comments: The HPV DNA reflex criteria were not met with this specimenresult therefore, no HPV testing was performed. .Performed At: [facility] [address] [place], [place] [id number] PAPSMR Comment (Normal) Comments: The Pap smear is a screening test designed to aid in thedetection of pre-malignant and malignant conditions of theuterine cervix. It is not a diagnostic procedure andshould not be used as the sole mean s of detecting cervicalcancer. Both false-positive and false-negative reports dooccur. . 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) Comments: Cristal Pisano L Tacker Plan of Care Name Dates Details Instructions [...] Diagnostic Tests Indication: Headache Headache : Reviewed Automated Process Operator Letter Indication: Headache Hypertensive heart disease without [...] Indication: Epigastric pain Epigastric pain : Reviewed Automated Process Operator Letter Indication: Epigastric pain Epigastric pain : [...] reflux disease) Planned Observations Metabolic Panel, Basic (52193)Indication: Therapeutic drug monitoring On: :13 Request Comments: give to jud to review HEPATIC FUNCTION PANEL (32204)Indication: Common bile duct dilation On: :18 Request HEPATIC FUNCTION PANEL (14115)Indication: Epigastric pain On: 56-Vso-478992:51 Request LIPID PANEL (20276)Indication: Hypercholesteremia On: :25 Request TSH (83508)Indication: Abnormal TSH On: :21 Request T4, FREE (THYROXINE) (24072)Indication: Abnormal TSH On: : Request T3, FREE (TRIDOTHYRONINE) (44748)Indication: Abnormal TSH On: :21 Request TSH (29856)Indication: Hypercholesteremia On: :14 Request URINALYSIS, W/ MICRO (38421)Indication: Hypertensive heart disease without congestive heart failure On: :14 Request MICROALBUMIN: CREATININE RATIO (89917) AND (34257)Indication: Hypertensive heart disease without congestive heart failure On: :14 Request METABOLIC PANEL, COMPREHENSIVE (40173)Indication: Hypertensive heart disease without congestive heart failure On: :14 Request LIPID PANEL (19776)Indication: Hypercholesteremia On: :14 Request CBC W/AUTO DIFF WBC (78910)Indication: Hypertensive heart disease without congestive heart failure On: :14 Request Cryptosporidium Sp Ag, Direct Fluorescent Ab (03580)Indication: Diarrhea On: :44 Request GIARDIA LAMBLIA ANTIBODY (13995)Indication: Diarrhea On: :43 Request C-DIFFICILE, STOOL (17406)Indication: Diarrhea On: 43 Request OVA & PARASITE DIR SMEAR (54647)Indication: Diarrhea On: :43 Request OCCULT BLOOD FECES SCREEN (58398)Indication: Diarrhea On: :43 Request LEUKOCYTE COUNT, FECAL (61538)Indication: Diarrhea On: 43 Request KVNG CULTURE-STOOL (99997)Indication: Diarrhea On: 22-Oct-20159:43 Request FECAL OCCULT HGB ASSAY- tubes sent home (42697)Indication: Encounter for Medicare annual wellness exam On: :28 Request TSH (29967)Indication: Hypertensive heart disease without congestive heart failure On: 63-Jzp-610406:27 Request URINALYSIS, W/ MICRO (52336)Indication: Hypertensive heart disease without congestive heart failure On: 72-Hwu-068150:27 Request MICROALBUMIN: CREATININE RATIO (14066) AND (13739)Indication: Hypertensive heart disease without congestive heart failure On: 84-Alx-847514:27 Request METABOLIC PANEL, COMPREHENSIVE (06455)Indication: Hypertensive heart disease without congestive heart failure On: : Request CBC WITH MANUAL DIFF (96886)Indication: Hypertensive heart disease without congestive heart failure On: 55-Zll-789482:27 Request LIPID PANEL (72755)Indication: Hypercholesteremia On: 05-Feb-2014 Request URINE KVNG CULTURE-HE COL COUNT (54600)Indication: Urinary frequency On: :17 Request Magnesium (75219)Indication: Hypopotassemia On: 11-Wbu-721012:50 Request Metabolic Panel, Basic (93695)Indication: Hypopotassemia On: 56-Xjn-165560:49 Request TSH (38317)Indication: Hypercholesteremia On: :09 Request URINALYSIS, W/ MICRO (17486)Indication: Hypertensive heart disease without congestive heart failure On: :09 Request MICROALBUMIN: CREATININE RATIO (22645) AND (47113)Indication: Hypertensive heart disease without congestive heart failure On: :09 Request METABOLIC PANEL, COMPREHENSIVE (21862)Indication: Hypertensive heart disease without congestive heart failure On: :09 Request LIPID PANEL (67696)Indication: Hypercholesteremia On: :09 Request CBC WITH MANUAL DIFF (80251)Indication: Hypertensive heart disease without congestive heart failure On: :09 Request URINE KVNG CULTURE-HE COL COUNT (47295)Indication: Dysuria On: 8-Ldd-845208:00 Request Glucose, PP/2 Hour (42635)Indication: Other specified abnormal findings of blood chemistry On: :21 Request HEPATIC FUNCTION PANEL (16413)Indication: Hypercholesteremia On: :57 Request LIPID PANEL (00142)Indication: Hypercholesteremia On: :57 Request Comments: DO IN 3 MONTHS Glucose, PP/2 Hour (34110)Indication: Other specified abnormal findings of blood chemistry On: 57 Request TRAN (ANTINUCLEAR ANTIBODY) (00400)Indication: Pain in unspecified joint On: Request C-REACTIVE PROTEIN (76710)Indication: Pain in unspecified joint On: Request CBC WITH MANUAL DIFF (37307)Indication: Pain in unspecified joint On: Request CCP ANTIBODY (10063)Indication: Pain in unspecified joint On: Request METABOLIC PANEL, COMPREHENSIVE (75776)Indication: Pain in unspecified joint On: Request RHEUMATOID FACTOR-QUANT (51247)Indication: Pain in unspecified joint On: : Request SED RATE ERYTHROCYTE (13451)Indication: Pain in unspecified joint On: Request TSH (67535)Indication: Pain in unspecified joint On: Request FECAL OCCULT- Tubes sent home (58829)Indication: Benign essential hypertension On: Request TSH (28089)Indication: Benign essential hypertension On: Request URINALYSIS W/O MICRO (01674)Indication: Benign essential hypertension On: Request MICROALBUMIN: CREATININE RATIO (08813) AND (19737)Indication: Benign essential hypertension On: Request METABOLIC PANEL, COMPREHENSIVE (36519)Indication: Benign essential hypertension On: Request LIPID PANEL (22056)Indication: Benign essential hypertension On: : Request CBC WITH MANUAL DIFF (34503)Indication: Benign essential hypertension On: : Request HEPATIC FUNCTION PANEL (26108)Indication: Hypercholesteremia On: 3-Mdm-039908:56 Request Comments: DO IN 3 MONTHS LIPID PANEL (72216)Indication: Hypercholesteremia On: 7-Yod-929734:56 Request URINALYSIS W/O MICRO (91252)Indication: Hypertension On: :51 Request TSH (92758)Indication: Hypertension On: :51 Request MICROALBUMIN URINE QUANT (54860)Indication: Hypertension On: :51 Request METABOLIC PANEL, COMPREHENSIVE (01450)Indication: Hypertension On: :50 Request LIPID PANEL (05481)Indication: Hypertension On: :50 Request CBC WITH MANUAL DIFF (51810)Indication: Hypertension On: :50 Request Planned Encounters Medical; [...] FLAT PLATE AND ERECT On: 21-Jun-2018 Intent (91275)By: Jud Samaniego CNP X-RAY OF CERVICAL SPINE, TWO VIEWS On: 02-Jun-2018 Intent (47902)By: Jessica Corona DO, DO, Kathleen Radiology - Lumbar SpineBy: Mohamud, On: 25-May-2018 Intent Addie ELECTROCARDIOGRAM, COMPLETE (ECG) On: 04-May-2018 Intent (27474)By: Jessica Corona DO Comments: nsr / no acute chg - pvc present and IVCD Jessica SCHROEDER [id number]-MT-[id number] BEHAVIORAL COUNSELING FOR On: 28-Apr-2018 Intent OBESITY, 15 MINUTES (G0447)By: Jessica Corona DO, DO, Kathleen DEXA SCAN AXIAL SKELETON (27651)By: On: 28-Apr-2018 Intent Jessica Corona DO, DO, Kathleen MRCP (MAGNETIC RESONANCE On: 06-Feb-2018 Intent CHOLANGIOPANCREATOGRAPHY) (S8037)By: Jessica Corona DO, DO, Kathleen ULTRASOUND OF UPPER ABDOMEN (29554)By: On: 27-Jan-2018 Intent Jessica Corona DO, DO, Kathleen Comments: attention size of CBD SCREENING DIGITAL TOMOSYNTHESIS OF On: 09-Jan-2018 Intent BREAST (78414)By: Addie Odell LPN ELECTROCARDIOGRAM, COMPLETE (ECG) On: 03-Aug-2017 Intent (45988)By: Jessica Corona DO Comments: sinus vinicio no new acute chg , Jessica MAMMOGRAM BREAST BILATERAL SCREENING On: 03-Jul-2015 Intent DIGITAL (79041)By: Jessica Corona DO, DO, Kathleen Radiology - ChestBy: Jud Samaniego CNP On: 26-May-2015 Intent Aerosol Treatment (77297)By: Danette SPRINGER, On: 26-May-2015 Intent Mildred Aerosol Treatment (16193)By: Froylan KENT, On: 05-May-2015 Intent Sandy Radiology - Lumbar SpineBy: Danette SPRINGER, On: 15-Apr-2015 Intent Jud Gunter Toradol Injection, 30 mg (J1885)By: On: 11-Apr-2015 Intent Jud Samaniego CNP ADMINISTRATION OF PNEUMOCOCCAL VACCINE On: 10-Jun-2014 Intent (G0009)By: Jessica Corona DO, DO, Kathleen PNEUM VAC ADLT/IMUMNOSPR, SBC/INTRM On: 10-Jun-2014 Intent (33590)By: Jessica Corona DO Comments: lot: [id number]: 03/22/15site/route: L del/IMamt: 0.5mLVIS signed when applicableJULIEN Rod DO, Kathleen VJLV-MX-FIUT BEHAVIORAL COUNSELING FOR On: 10-Jun-2014 Intent OBESITY, 15 MINUTES (G0447)By: Jessica Corona DO, DO, Kathleen BILATERAL MAMMOGRAMS (69612)By: Chloe On: 04-Jun-2014 Intent Jessica SCHROEDER DO, Kathleen EKG (17577)By: Jessica Corona DO On: 04-Feb-2014 Intent Jessica Corona DO Comments: nsr no acute cg Eprescribed prescriptions (G8553)By: On: 16-Nov-2013 Intent Jessica Corona DO, DO, Kathleen gastric emptying studyBy: Chloe SCHROEDER, On: 10-Oct-2013 Intent Jessica Proctor DO FLU VAC, SPLIT, >3 YEARS, INTRAMUSC On: 06-Sep-2013 Intent (60246)By: Addie Odell LPN Comments: Lot:ic48cMks:6.14Amt:0.5mlRoute:IMSite: L DltdGiven By: DONTE FontenotVIS signed ADMINISTRATION OF INFLUENZA VIRUS On: 06-Sep-2013 Intent VACCINE (G0008)By: Addie Odell LPN EKG (36504)By: Jessica Corona DO On: 26-Mar-2013 Intent Jessica Corona DO Comments: nsr no acute ischemic changes/ borderline LVH Eprescribed prescriptions (G8553)By: On: 26-Mar-2013 Intent Manreba Viola Eprescribed prescriptions (G8553)By: On: 23-Feb-2013 Intent ManShaye brittonsea MAMMOGRAM, SCREENING, BOTH BREASTS On: 19-Jan-2013 Intent (68768)By: Jessica Corona DO, DO, Kathleen CT - Abdomen & Pelvis (IV Contrast On: 28-Aug-2012 Intent Needed)By: Jessica Corona DO, DO, Kathleen Eprescribed prescriptions (G8553)By: On: 28-Aug-2012 Intent Addie Odell LPN DRAIN/INJECT, JOINT/BURSA (23747)By: On: 25-Feb-2012 Intent Jessica Corona DO, DO, Kathleen Comments: inject 2 cc marcaine 1 cc kenolog Radiology - Knee - RightBy: Chloe SCHROEDER, On: 31-Jan-2012 Intent Jessica Corona DOJessica Eprescribed prescriptions (G8553)By: On: 25-Oct-2011 Intent Jessica Corona DO, DO, Kathleen TDAP VACCINE >7 IM (37974)By: Chloe On: 02-Jul-2011 Intent Jessica SCHROEDER DO, Kathleen Comments: 0.5cc given im rt dltd lot [id number] exp 08-11-13 EKG (35350)By: Jessica Corona DO On: 01-Feb-2011 Intent Jessica Corona DO Comments: nsr no acute changes-- borderline LVH -- but seen on echo best Bio Z (79503)By: Jessica Corona DO On: 01-Feb-2011 Intent Jessica [...] On: 18-Aug-2009 Intent Jessica Proctor DO EKG (81833)By: Jessica Corona DO On: 18-Aug-2009 Intent Jessica Corona DO Comments: nsr no acute changes Pulse Oximetry (80120)By: Chloe SCHROEDER On: 05-Mar-2009 Intent Jessica Proctor DO Comments: 93% RA Aerosol Treatment (10078)By: Chloe SCHROEDER On: 05-Mar-2009 Intent Jessica Proctor DO Comments: better air exchange no wheeze Solu- Medrol Injection, 125mg On: 05-Mar-2009 Intent (J2930)By: Jessica Corona DO Comments: injection given in left glutues alvarado. Pt tolerated well. [id number] Jessica SCHROEDER EKG (17240)By: Jessica Corona DO On: 25-Feb-2008 Intent Jessica [...] failure Hypercholesteremia : DISCONTINUED - LIPID PANEL (58560) Indication: Hypercholesteremia Hypercholesteremia : DISCONTINUED - TSH (29019) Indication: Hypercholesteremia Hypertensive heart disease without congestive heart failure : DISCONTINUED - URINALYSIS, W/ MICRO (39037) Indication: Hypertensive heart disease without congestive heart failure Hypertensive heart disease without congestive heart failure : DISCONTINUED - MICROALBUMIN: CREATININE RATIO (90061) AND (83633) Indication: Hypertensive heart disease without congestive heart failure Hypertensive heart disease without congestive heart failure : DISCONTINUED - METABOLIC PANEL, COMPREHENSIVE (45042) Indication: Hypertensive heart disease without congestive heart failure Hypertensive heart disease without congestive heart failure : DISCONTINUED - CBC WITH MANUAL DIFF (00901) Indication: Hypertensive heart disease without congestive heart [...] are helping. Going on a trip next week-[facility] bus trip.Encounter Diagnosis: Non-smoker, BMI 35.0-35.9,adult, [...] patient does not have durable power of commercial attorney or living will. The patient has [...] patient does not have durable power of commercial attorney or living will. The patient has [...]
--- OUTSIDE RECORDS SUMMARY | 2018-12-17 17:07 | XMS RPT_ITS | Continuity of Care Document ---
:1950 Author Organization [facility] Address [address] [place] [address] Phone Care Team Providers Name Role Phone Jessica Corona DO Unavailable Marcy Allen Unavailable Huber MCKAY, Dr. Benitez Unavailable [facility], [facility] Unavailable DONTE Odell Unavailable Unavailable Emily [...] eating mrcp neg normal lft-- h/o gb outIn physical therapy and not hurting but not helping either Status: Active Chronic vaginitis (N76.1, 616.10) Status: Active Colon cancer screening (Renamed from Encounter for screening for malignant neoplasm of colon) (Z12.11, V76.51) Comments: scope 2017- [facility] 2103 Status: Active Common bile duct [...] treatment --no snore no wittnessed apnea per husbandrelated to dilated cbd? but normal lft and neg mrcp -- so GI wont do ERCP with risk of pancreatitis Status: Active Hypopotassemia (E87.6, 276.8) Status: Active Irritable Bowel Syndrome (K58.9, 564.1) Comments: stable Status: Active Irritable bowel syndrome with diarrhea (K58.0, 564.1) Status: Active Lower back pain (M54.5, 724.2) Status: Active Nausea (R11.0, 787.02) Comments: chronic nausea -- use promethazine prn -- tums and gasx, mylanta has helped alot to minimize use -- using ppi( prevacid)had EGD -- trying FODMAP diet -- xifaxan got super nausea and sick from it Status: Active Nausea (R11.0, 787.02) 13-Feb-2010 Comments: off and on and recurring Status: Active Nausea (R11.0, 787.02) Comments: ok with dr Murillo dx and recommendation she will start the carafate again Status: Active Non-smoker (Z78.9, V49.89) Status: Active [...] Active Right upper quadrant pain (R10.11, 789.01) Comments: just dull ache - not terrible but just enough to let know its there Status: Active Sciatica of right side (M54.31, [...] 90 days Quantity: 135 {Tablet} Refills: 3 Ordered:10-Oct-2018 Mayte Corona DO, DO, Kathleen Start : 10-Oct-2018 Active CloNIDine HCl 0.1 MG Oral Tablet [...] days Quantity: 120 {Tablet} Refills: 3 Ordered:23-Sep-2017 Chloe SCHROEDER MarjorieAdore Jessica Start : 03-Aug-2017 End : 23-Sep-2017 Inactive Comments:Medication taken as needed. Carisoprodol 250 MG Oral Tablet 1 (one) Tablet PO QHS for 3 days Quantity: 3 {Tablet} Refills: 0 Ordered:25-May-2018 Addie Mallory Start : 25-May-2018 End : 28-May-2018 Inactive Comments:VUSDATuhnluzp-424Fqirivpy-554Vngalsibu-000OD Kugx-792YP-Cscwdnyk of Right Side (M54.31)#Three CELEBREX, 200MG (Oral [...] Quantity: 30 {Tablet} Refills: 0 Ordered:20-Apr-2011 Ole Nuria KENT Start : 25-Mar-2011 End : 20-Apr-2011 Inactive [...] Quantity: 10 {Tablet} Refills: 0 Ordered:05-May-2015 Danette SPRINGERJud Start : 05-May-2015 End : 15-May-2015 [...] for 2 days Refills: 0 Ordered:03-Aug-2010 Danette SPRINGERJud Start : 28-Jul-2010 End : 30-Jul-2010 [...] bid for 0 days Refills: 0 Ordered:21-Aug-2010 Nadya KENTStephy End : 21-Aug-2010 Discontinued Comments:This order discontinued per [facility]. TENORMIN, 50MG (Oral Tablet) 1 Tablet qd for 0 days Quantity: 30 {Tablet} Refills: 3 Ordered:11-Apr-2015 SlaSandy gatica LPN Start : 10-Oct-2013 End : 11-Apr-2015 Discontinued URISPAS, 100MG (Oral Tablet) 1-2 Tablet tid for 0 days Quantity: 20 {Tablet} Refills: 0 Ordered:01-Feb-2011 Addie Odell LPN Start : 13-Aug-2010 End : 01-Feb-2011 Discontinued Comments:This order discontinued per [facility]. Allergies and Adverse Reactions Name Dates Details [...] Stress Report Result: Comments: See Note; NOTES: [facility] Cardiovascular Services [address] [place] [address] MR#: [id number] Acct: [id number] Name: NEISHA TOBAR Rep #: [id number] : 68 From: Baron Gonzalez MD Primary [...] MD CC: Jessica Corona DO Date Dictated: 10/02/18 1448 Date Transcribed: 10/02/181447 Supervisor Pipe Manufacture: [place] Signed 28-Sep-2018 Inital Evaluation (1) - PT Result: Comments: See Note; NOTES: [facility] Physical Therapy [facility] [address] [place] [address]. 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 HTN. GERD. [...] INDEP GAIT AND TRANSFERS. 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 TOMI UE'S WFL. Sensory [...] to be FAXED BACK to us at [phone] for Medicare purposes. Please let me know if there are questions or concerns re garding this plan of care. Physician Signature: Date: <Electronically signed by Maliha Rudolph PT, Cert. MDT> 09/28/18 1313 CC: Jessica Corona DO NAZANIN Signed For Medicare only, by signing this I certify the plan of care. Physicians Signature Date 24-Sep-2018 Renal Artery Duplex Result: Comments: See Note; NOTES: [facility] Cardiovascular Services [address] [place] [address] Renal Artery Duplex Ultrasound 09/22/18 0802 MR#: [id number] Acct: [id number] Name: NEISHA TOBAR Rep #: [id number] : 1950 68 From: Ciro Maravilla MD Attending Dr: Jessica Corona DO Status: REG CLI Ordering Dr: Jessica Corona DO Date: 09/22/18 Location: [facility] Sex: F C Admitt ed: Reason For [...] Dictated: 09/22/18 0802 Date Transcribed: 09/24/18 1013 Supervisor Pipe Manufacture: Signed 18-Sep-2018 Kidney and Bladder Result: Comments: See Note; NOTES: [facility] Imaging Services [address] [place] [address] Kidney and Bladder MR#: [id number] Acct: [id number] Name: NEISHA TOBAR Rep #: [id number] : 1950 F 68 From: Jorge Holland MD PCP: Jessica Corona DO Status: REG CLI Study: Kidney and Bladder Date of Exam: 09/18/18 Exam# [id number] Ordering Dr: Jessica Corona DO STUDY: RENAL [...] Service support , CC: Jessica Corona DO Supervisor Pipe Manufacture: Signed 12-Sep-2018 12 Lead Electrocardiogram Result: Comments: See Note; NOTES: [facility] Cardiovascular Services [address] [place] [address] 12 Lead EKG 09/09/18 0949 MR#: [id number] Acct: [id number] Name: NEISHA TOBAR ep #: [id number] : 1950 68 From: Ian Gudino MD [...] Abnormal ECG Confirmed by TERESE MCKAY, IAN ([id number]), editor managing newspaper CHARITY VILLEGAS ([id number]) on 09/12/2018 11:06:08 AM Referred By: Devora Corona Confirmed By:IAN GUIDNO MD 09/12/18 1106 Date Ian Gudino MD CC: Anel Hunter MD; Jessica Chloe SCHROEDER Signed 09-Sep-2018 Emergency Department Summary Result: Comments: See Note; NOTES: [facility] Medical Records Department [address] [place] [address] Emergency Department Summary 09/09/18 0934 MR#: [id number] Acct: [id number] Name: NEISHA TOBAR Rep #: [id number] : 1950 68 From: Anel Hunter MD PCP: Jessica Coorna DO Status: DEP ER - ER Visit [...] Hypertension, improved This note was generated with [employer] dictation software. It may contain incorrect words, [...] problems, contact your Primary Care Provider. Call [facility] ([phone]) or report to the [facility] Emergency Room. Call 911 if necessary. 09/09/18 1633 <Electronically signed by Anel Hunter MD> Date Anel Hunter MD Cos igner Signature (If Indicated): Date CC: Jessica Corona DO 09-Sep-2018 Discharge Instruction Result: Comments: See Note; NOTES: [facility] Medical Records Department [address] [place] [address] Discharge Instruction 09/09/18 1203 MR#: [id number] Acct: [id number] Name: Lydia TOBAR Rep #: [id number] : 1950 68 From: Anel Hunter MD [...] your Primary Care Provider. Call [facility] ([phone]) or report to the closest Emergency Room. Call 911 if necessary. 09/09/18 1207 < Electronically signed by Anel Hunter MD> Date Anel Hunter MD Cosigner Signature (If Indicated): Date CC: Jessica Corona DO 09-Sep-2018 Brain/Head without Contrast Result: Comments: See Note; NOTES: [facility] Imaging Services [address] [place] [address] Brain/Head without Contrast MR#: [id number] Acct: [id number] Name: NEISHA TOBAR Rep #: [id number] : 1950 F 68 From: Italo Brown DO PCP: Jessica Corona DO Status: REG ER Study: Brain/Head without Contrast Date of Exam: 09/09/18 Exam# [id number] Ordering Dr: Anel Hunter MD [facility] CT BRAIN WITHOUT CONTRAST REASON FOR [...] CC: Anel Hunter MD; Jessica Corona DO Supervisor Pipe Manufacture: Signed 21-Jun-2018 Abd Inc Decub and/or Erect Result: Comments: See Note; NOTES: [facility] Imaging Services [address] [place] [address] [employer] Decub and/or Erect MR#: [id number] Acct: [id number] Name: NEISHA TOBAR Rep #: [id number] : 1950 F 68 From: Tapan Gore MD PCP: Jessica Corona DO Status: REG CLI Study: Abd Inc Decub and/or Erect Date of Exam: 06/21/18 Exam# [id number] Ordering Dr: Jud Samaniego Y: X-RAY - [...] , Service support , CC: Jud Samaniego PELLETISING EXTRUDER OPERATOR; Jessica Corona DO Supervisor Pipe Manufacture: Signed 02-Jun-2018 Cerv Spine 2 or 3 Views Result: Comments: See Note; NOTES: [facility] Imaging Services [address] [place] [address] Cerv Spine 2 or 3 Views MR#: [id number] Acct: [id number] Name: NEISHA TOBAR Rep #: [id number] : 1950 F 68 From: Jamil Paulson MD PCP: Jessica Corona DO Status: REG CLI Study: Cerv Spine 2 or 3 Views Date of Exam: 06/02/18 Exam# [id number] Ordering Dr: Jessica Corona DO UDY: X-RAY [...] Service support , CC: Jessica Corona DO Supervisor Pipe Manufacture: Signed 25-May-2018 L/S Spine Min 4 Views Result: Comments: See Note; NOTES: [facility] Imaging Services [address] [place] [address] L/S Spine Min 4 Views MR#: [id number] Acct: [id number] Name: NEISHA TOBAR Rep #: [id number] : 1950 F 68 From: Mikayla Guerrier MD PCP: Jessica Corona DO Status: REG CLI Study: L/S Spine Min 4 Views Date of Exam: 05/25/18 Exam# [id number] Ordering Dr: Addie Mallory PELLETISING EXTRUDER OPERATOR-C STUDY: X -RAY - LUMBAR SPINE REASON [...] , CC: DEYSI Mallory; Jessica Corona DO Supervisor Pipe Manufacture: Signed 09-May-2018 Dexa Bone Density Study Result: Comments: See Note; NOTES: [facility] Imaging Services [address] [place] [address] Dexa Bone Density Study MR#: [id number] Acct: [id number] Name: NEISHA TOBAR Rep #: [id number] : 1950 F 68 From: Kvng Cutler MD PCP: Jessica Corona DO Status: [facility] Study: Dexa Bone Density Study Date of Exam: 05/09/18 Exam# [id number] Ordering Dr: Jessica Corona DO STUDY: DUAL [...] Kvng Cutler MD at 8:25 EDT Tel [phone], Service support , CC: Jessica Corona DO Supervisor Pipe Manufacture: Signed 14-Feb-2018 MRCP Abdomen without Contrast Result: Comments: See Note; NOTES: [facility] Imaging Services [address] [place] [address] MRCP Abdomen without Contrast MR#: [id number] Acct: [id number] Name: NEISHA TOBAR Rep #: [id number] : 1950 F 68 From: Vj Rajput MD PCP: Jessica Corona DO Status: REG CLI Study: MRCP Abdomen without Contrast Date of Exam: 02/14/18 Exam# [id number] Ordering Dr: Rigo Corona DO STUDY: MR [...] Service support , CC: Jessica Corona DO Supervisor Pipe Manufacture: Signed 03-Feb-2018 Abdomen Limited Result: Comments: See Note; NOTES: [facility] Imaging Services [address] [address] Abdomen Limited MR#: [id number] Acct: [id number] Name: NEISHA TOBAR Rep #: [id number] D OB: 1950 F 68 From: Kvng Cutler MD PCP: Jessica Corona DO Status: REG CLI Study: Abdomen Limited Date of Exam: 02/03/18 Exam# [id number] Ordering Dr: Jessica Corona DO STUDY: ABDOMINAL [...] Kvng Cutler MD at 13:52 EDT Tel [phone], Service support , CC: Jessica Corona DO Supervisor Pipe Manufacture: Signed 31-Jan-2018 SCREENING MAMM (CAD), BILAT Result: Comments: See Note; NOTES: [facility] Imaging Services [address] [place] [address] SCREENING MAMM (CAD), BILAT MR#: [id number] Acct: [id number] Name: NEISHA TOBAR Rep #: [id number] : 1950 F 67 From: Kvng Cutler MD PCP: Jessica Corona DO Status: REG CLI Study: SCREENING MAMM (CAD), BILAT Date of Exam: 01/31/18 Exam# [id number] Ordering Dr: Lidia Corona DO MAMMOGRAPHY - [...] delay biopsy of a clinically suspicious abnormality. [id number] Electronically Signed: Kvng Cutler MD at 14:26 EDT Tel [phone], Service supp ort , CC: Jessica Corona DO Supervisor Pipe Manufacture: Signed 28-Aug-2015 Bilat Scrn Digital AND CAD Result: Comments: See Note; NOTES: [facility] Imaging Services [address] [place] [address] Breast Imaging Report MR#: [id number] Acct: [id number] Name: NEISHA TOBAR Rep # : [id number] : 1950 F 65 From: Kvng Cutler MD PCP: Jessica Corona DO Status: REG CLI Study: Bilat Scrn Digital AND CAD Date of Exam: 08/28/15 Exam# [id number] Ordering Dr: Raymond Corona DO MAMMOGRAPHY - [...] be sent to the patient by the [facility] within 30 days. Approximately 10% of breast cancers are not detected by mammography. A normal mammogram should not delay biopsy of a clinically suspicious abnormality. Electronically Mirian d: Kvng Cutler MD at 8:05 EDT Tel [phone], Service support [phone], CC: Jessica Corona DO Supervisor Pipe Manufacture: Signed 03-Jun-2015 PT Discharge Summary Result: Comments: See Note; NOTES: [facility] Physical Therapy [facility] [address] [place] [address] Fax REHABILITATION SERVICES DISCHARGE SUMMARY MR#: [id number] Acct: [id number] Name: NEISHA TOBAR Rep #: [id number] : 1950 65 From: Sandy Nelson Referring DrEfrain: Jud Samaniego Status: DIS RCR Eval Date: [...] clinic. Sandy Nelson, PT T: [facility] JOB: [id number] <Electronically signed by Sandy Nelson > 06/03/15 1726 CC: Signed 26-May-2015 Chest PA and Lateral Result: Comments: See Note; NOTES: [facility] Imaging Services [address] [place] [address] Radiology Report MR#: [id number] Acct: [id number] Name: NEISHA TOBAR Rep #: [id number] : 1950 F 65 From: Zoila Allen MD PCP: Jessica Corona DO Status: REG CLI Study: Chest PA and Lateral Date of Exam: 05/26/15 Exam# [id number] Ordering Dr: Jud Samaniego STUDY: X-RAY C [...] MD at 12:07 EDT , Service support [phone], RAD /Chest PA and Lateral IMPRESSION: There is a left midlung field calcified granuloma. There is bilateral lower lobe scarring/atelectasis. No radiographic evidence of bronchitis. Electronically Sig kyle: Zoila Allen MD at 12:07 EDT , Service support [phone], CC: Jud Samaniego; Jessica Chloe DO Supervisor Pipe Manufacture: Signed 13-May-2015 Inital Evaluation - PT Result: Comments: See Note; NOTES: [facility] Physical Therapy [facility] [address] [place] [address] Fax REHABILITATION SERVICES INITIAL EVALUATION MR#: [id number] Acct: [id number] Name: NEISHA TOBAR Rep #: [id number] : 1950 65 From: Sandy Nelson Referring [...] modalities as needed. Sandy Nelson, PT T: [facility] JOB: [id number] <Electronically signed by Sandy Nelson > 05/13/15 0818 CC: Signed For Medicare only, by signing this I certify the plan of care. Physicians Signature Date 16-Apr-2015 L/S Spine Min 4 Views Result: Comments: See Note; NOTES: [facility] Imaging Services [address] [place] [address] Radiology Report MR#: [id number] Acct: [id number] Name: NEISHA TOBAR Rep #: [id number] : 1950 F 65 From: Rod Pollard DO PCP: Jessica Corona DO Status: REG CLI Study: L/S Spine Min 4 Views Date of Exam: 04/16/15 Exam# [id number] Ordering Dr: Jud Samaniego STUDY: X-RA Y [...] Rod Pollard DO at 16:48 EDT Tel [phone], Service support [phone], RAD/L/S Spine Min 4 Views IMPRESSION: Degenerative ch anges of the spine, as detailed above. Electronically Signed: Rod Pollard DO at 16:48 EDT Tel [phone], Service support [phone], CC: Jud Corona DO Supervisor Pipe Manufacture: Signed 11-Jun-2014 Bilat Scrn Digital & CAD Result: Comments: See Note; NOTES: [facility] Imaging Services [facility] [place] [address] Breast Imaging Report MR#: [id number] Acct: [id number] Name: NEISHA TOBAR Rep #: [id number] : 1950 F 64 From: Ian Lamas MD PCP: Jessica Corona DO Status: REG CLI Exam# [id number] Ordering Dr: Jessica Corona DO MAMMOGRAPHY - [...] 17:24 EDT Tel , Ser vice support [phone], CC: Jessica Corona DO Supervisor Pipe Manufacture: Signed 29-Oct-2013 Gastric Emptying Study Result: Comments: See Note; NOTES: [facility] Imaging Services [address] [place] [address] Nuclear Medicine Report MR#: [id number] Acct: [id number] Name: NEISHA TOBAR Rep #: [id number] : 1950 F 63 From: Celestine Garza DO PCP: Status: REG CLI Study: Gastric Emptying Study Date of Exam: 10/29/13 Exam# [id number] Ordering Dr: Jessica Corona DO CLINICAL: 63 [...] M.D. at 22:51 EST , Service support [phone], CC: Jessica Corona DO Supervisor Pipe Manufacture: Signed Family History Unknown Family Member Name [...] Active Vital Signs Date Test Result Details :26 Pulse 69 /min Comments: Pattern: Regular Respiration Rate 18 /min Comments: Pattern: Unlabored O2 SAT 96 % Comments: Room air BP Systolic 152 mm[Hg] Comments: Patient Position: Sitting; Cuff Location: Left Arm; Cuff Size: Large BP Diastolic 84 mm[Hg] Comments: Patient Position: Sitting; Cuff Location: Left Arm; Cuff Size: Large Weight 196 lb Height 64 in Body Mass Index Calculated 33.64 kg/m2 Body Surface Area Calculated 1.94 m2 :05 Pulse 62 /min Comments: Pattern: Regular Respiration [...] kg/m2 Body Surface Area Calculated 1.94 m2 98-Uvj-205107:14 Comments: recheck bp 143/115 but pt states [...] see. but [place] [facility] Pulse 70 /min Comments: Pattern: Regular [...] Arm; Cuff Size: Large Height 64 in 10-Tbh-405469:06 Pulse 60 /min Comments: Pattern: Regular Respiration [...] 0.00 cm Results Date Description Value Details 44-Nmy-43265:45 ALDOSTERONE ([id number]) Comments: PATIENT NOT FASTINGPERFORMED BY: [address] [id number] Aldosterone 19.6 ng/dL (Normal) Range: 0.0-30.0 Comments: This test was developed and its performance characteristicsdetermined by [employer]. It has not been cleared or approvedby the Food and Drug Administration. 77-Dug-98263:45 RENIN (59720) Comments: PATIENT NOT FASTINGPERFORMED BY: [address] [id number] Renin Activity, Plasma 0.846 {ng/mL/hr} Range: 0.167-5.380 (Normal) Comments: This test was developed and its performance characteristicsdetermined by [employer]. It has not been cleared or approvedby the Food and Drug Administration. :00 METANEPHRINES - URINE (07213) Comments: PATIENT NOT FASTINGPERFORMED BY: [address] [id number] Metanephrine, U,24hr 84 {ug/24_hr} (Normal) Range: 45-290 Comments: (Hypertensive) >17 years 11 months: 35 - 460 Metanephrine, Ur 84 ug/L (Normal) Normetanephr.,U,24h 352 {ug/24_hr} (Normal) Range: 82-500 Comments: (Hypertensive) >17 years 11 months: 110 - 1050 Normetanephrine, Ur 352 ug/L (Normal) 50-Noz-47324:00 CATECHOLAMINES TOTAL, URINE Comments: PATIENT NOT FASTINGPERFORMED BY: [address] [id number] Information: START 09/14/18 @5AM (43979) Dopamine, Ur, 24hr 155 {ug/24_hr} (Normal) Range: 0-510 Dopamine, Urine 155 ug/L (Normal) Comments: Verified by repeat analysis Norepinephrine,U,24h 52 {ug/24_hr} (Normal) Range: 0-135 Norepinephrine, Ur 52 ug/L (Normal) Comments: Verified by repeat analysis Epinephrine, U, 24hr 8 {ug/24_hr} (Normal) Range: 0-20 Epinephrine, Urine 8 ug/L (Normal) Comments: Verified by repeat analysis 47-Ixm-54947:00 URINE VMA (47492) Comments: PATIENT NOT FASTINGPERFORMED BY: [facility] [address] [id number] VMA, Urine, 24hr 2.4 {mg/24_hr} (Normal) Range: 0.0-7.5 Comments: This test was developed and its performance characteristicsdetermined by [facility]. It has not been cleared or approvedby the Food and Drug Administration. VMA, Urine 2.4 mg/L (Normal) :38 Basic Metabolic Profile (BMP) Comments: [facility] [address] [place], [address] GAP 7 (Normal) Range: 5-15 CO2 27.0 [...] A.D.A. criteria.Please note revised GLUCOSE reference range nuuhhpegt65/02/2018. 46-Sim-46063:38 CBC W/Diff, Automated Comments: [facility] [address] [place], [address] Absolute Lymph 1.21 {X10_3/ul} (Normal) Range: 0.83-4.51 [...] 4.2-5.4 WBC 5.8 K/mm3 (Normal) Range: 4.4-11.0 53-Nsa-118046:49 Basic Metabolic Profile (BMP) Comments: [facility] [address] [place], [place], [address] GAP 5 (Normal) Range: 5-15 CO2 30.0 [...] A.D.A. criteria.Please note revised GLUCOSE reference range rlievfmja03/02/2018. 5-Hoj-022929:47 URINE KVNG CULTURE-HE COL Comments: PERFORMED BY: [facility] [id number] Information: [id number] SRC:UR COUNT (31092) Antimicrobial MIHEAD (Normal) Comments: S = Susceptible; [...] Final report Culture,Comprehensive (Abnormal) 21-Jun-20188:17 Urinalysis, Office (12610) UA - LEUKOCYTE ESTERASE Negative (Normal) UA - NITRITE Negative (Normal) URINE UROBILINGN HE TIMED Normal mg/dL (Normal) UA - PROTEIN Negative mg/dL (Normal) UA - PH 7.5 (Normal) UA - BLOOD Negative (Normal) UA - SPECIFIC GRAVITY 1.010 (Normal) UA - KETONES Negative mg/dL (Normal) UA - BILIRUBIN Negative (Normal) UA - GLUCOSE Negative (Normal) 57-Nwq-43319:39 CBC, PLATELETS & AUT DIFF Comments: PATIENT NOT FASTINGPERFORMED BY: LUIS [employer] [facility] [id number] (60221) Immature Grans (Abs) 0.0 {x10E3/uL} (Normal) Range: [...] 3.77-5.28 WBC 4.8 {x10E3/uL} (Normal) Range: 3.4-10.8 21-Myu-79967:39 C-REACT PROT HIGH SENS(hsCRP) Comments: PATIENT NOT FASTINGPERFORMED BY: LUIS [facility] Gtcjgr1420 [facility] [id number] (49278) C-Reactive Protein, Cardiac 2.22 mg/L (Normal) Range: 0.00-3.00 Comments: Relative Risk for Future Cardiovascular Event Low <1.00 Average 1.00 - 3.00 High >3.00 :39 ESR-F (SED RATE ERYTHROCYTE - Comments: PATIENT NOT FASTINGPERFORMED BY: [facility] Pckmlw3565 [facility] [place] [id number] FEMALE) (08029) Sedimentation Rate-Westergren 9 mm/h (Normal) Range: 0-40 81-Dep-89765:39 LDH (LD) (LACTATE DEHYDROGENASE) Comments: PATIENT NOT FASTINGPERFORMED BY: [facility] Wzkfwo5700 [facility] [id number] (19541) LDH 209 [iU]/L (Normal) Range: 119-226 Hemoglobin A1c 5.5 % (Normal) Comments: PATIENT NOT FASTINGPERFORMED BY: [facility] Kftuje2218 [facility] [id number] 3:06 Range: 4.8-5.6 Comments: . Pre-diabetes: 5.7 - 6.4 Diabetes: >6.4 Glycemic control for adults with diabetes: <7.0 Written Authorization WAR (Normal) Comments: PATIENT NOT FASTINGPERFORMED BY: CB [facility] Tmaolt0684 [facility] [id number] 3:06 Comments: Written Authorization Received.Authorization received from ANNETTE POWELL LPN [id number] by Lidia Reddy 31-Jxo-064366:06 TSH ([id number]) Comments: PATIENT NOT FASTINGPERFORMED BY: [facility] Gdecje3513 [facility] [id number] TSH 2.370 {uIU/mL} (Normal) Range: 0.450-4.500 93-Yjs-347241:06 METABOLIC PANEL, COMPREHENSIVE Comments: PATIENT NOT FASTINGPERFORMED BY: [facility] Ceklda0987 [facility] [id number] (95784) ALT (SGPT) 19 [iU]/L (Normal) Range: 0-32 [...] 8-27 Glucose 102 mg/dL (Abnormal) Range: 65-99 65-Nea-182584:06 CBC W/AUTO DIFF WBC (55638) Comments: PATIENT NOT FASTINGPERFORMED BY: [facility] SystemEnrlsd9355 [facility] [id number] Immature Grans (Abs) 0.0 {x10E3/uL} (Normal) Range: [...] (Normal) Range: 3.4-10.8 :56 Free T3 Comments: [facility] [address] [place], [place], [address] FREE T3 2.7 pg/mL (Normal) Range: 2.18-3.98 :56 Lipid Profile Comments: [facility] [address] [place], [place], [address] VLDL 34 mg/dL (Normal) Range: 5-40 LDL [...] mg/dL High Risk :56 Liver Profile Comments: [facility] [address] [place], [place], [id number] ; ov 430 D BILI 0.12 mg/dL (Normal) Range: 0.00-0.30 T BILI 0.50 mg/dL (Normal) Range: 0.20-1.00 ALT 24 U/L (Normal) Range: 13-56 ALK P 67 U/L (Normal) Range: 45-117 AST 19 U/L (Normal) Range: 15-37 GLOB 3.7 g/dL (Normal) Range: 2.2-4.2 ALB 3.8 g/dL (Normal) Range: 3.2-5.0 T PROT 7.5 g/dL (Normal) Range: 6.4-8.2 :56 T4 Free Direct Comments: [facility] [address] [place], [address] T4 FREE DIRECT 0.97 ng/dL (Normal) Range: 0.76-1.46 12-Nzc-52347:56 Thyroid Stim Hormone (TSH) Comments: [facility] [address] [place], [phone] TSH 3.42 {uIU/mL} (Normal) Range: 0.358-3.74 2-Lad-182980:52 GGTP 30 U/L (Normal) Comments: [facility] [address] [place], [address] Range: 5-55 3-Xjg-527600:52 Liver Profile Comments: [facility] [address] [place], [address] D BILI 0.15 mg/dL (Normal) Range: 0.00-0.30 T BILI 1.10 mg/dL (Abnormal) Range: 0.20-1.00 ALT 31 U/L (Normal) Range: 12-78 ALK P 61 U/L (Normal) Range: 45-117 AST 21 U/L (Normal) Range: 15-37 GLOB 3.8 g/dL (Normal) Range: 2.2-4.2 ALB 3.8 g/dL (Normal) Range: 3.4-5.0 Comments: Please note revised Albumin AND Globulin reference rangeeffective 2017. T PROT 7.6 g/dL (Normal) Range: 6.4-8.2 6-Ysu-338530:36 Bilirubin, Direct Comments: LIVER AND GGTP FOR [facility] [address] [place], [place], [address] D BILI 0.14 mg/dL (Normal) Range: 0.00-0.30 :36 CBC W/Diff, Automated Comments: LIVER AND GGTP FOR [facility] [address] [place], [address] Absolute Lymph 1.45 {X10_3/ul} (Normal) Range: 0.83-4.51 [...] Metabolic Profil Comments: LIVER AND GGTP FOR [facility] [address] [place], [place], [address] GAP 9 (Normal) Range: 5-15 CO2 27.0 [...] 7-18 GLU 91 mg/dL (Normal) Range: 70-110 3-Bdn-235994:36 GGTP 22 U/L (Normal) Comments: LIVER AND GGTP FOR [facility] [address] [place], [address] Range: 5-55 6-Jen-998538:36 Lipid Profile Comments: LIVER AND GGTP FOR [facility] [address] [place], [address] VLDL 56 mg/dL (Abnormal) Range: [...] 200-240 mg/dL Borderline >240 mg/dL High Risk 3-Bln-808196:36 Microalb:Creat Ratio,Random UR Comments: LIVER AND GGTP FOR [facility] FOR [facility] [address] [place], [address] MALB:CREAT 38.1 {mg/g_CRE} (Abnormal) MICROALBUMIN,UR 43.8 mg/L (Normal) UR CREAT 115.00 mg/dL (Normal) 6-Ikl-170980:36 Thyroid Stim Hormone (TSH) Comments: LIVER AND GGTP FOR [facility] [address] [place], [address] TSH 4.13 {uIU/mL} (Abnormal) Range: 0.358-3.74 6-Fpw-593545:36 Urinalysis, Complete Comments: LIVER AND GGTP FOR [facility] FOR [facility] was Urine Obtained? [facility] [address] [place], [address] HYALINE CAST 0-5 SEEN {/lpf} Range: [...] BIOPSY (CHOOSE SITE) See Note (Normal) Comments: [facility] [address] [place], [address] 0:00 Comments: Patient: NEISHA TOBAR : 1950 (66/F) Acct Num: [id number] Phys: Steve Richard Unit Num: [id number] Loc: LABSPEC Specimen: [id number] Received: 02/11/16 - 0754 Spec Type: COLON BX TISSUES TISSUES: GROSS DESCRIPTION Received is one container labeled with the patient name and designated biopsy polyp right colon. The specimen consists of multiple irre gular fragments of light ramirez soft tissue that in aggregate measure 0.2 x 0.1 x 0.1 cm. The specimen is totally submitted in one cassette. / AM:chris 02/10/16 TC:5 CPT:06080 HEADER OPERATION: Colon oscopy with biopsy PRE-OP DIAGNOSIS: High-risk screen/polyp TISSUE SUBMITTED: Biopsy, polyp, right colon - rule out adenoma MICROSCOPIC DESCRIPTION Slides are reviewed. MICROSCOPIC DIAGNOS IS Right colon polyp, biopsy: Hyperplastic polyp. AM:crow 02/11/16 Signed Samuel Acevedo 02/11/16 <signature on file> C difficile Toxins A+B, Negative (Normal) Comments: PATIENT NOT FASTINGPERFORMED BY: [facility] [id number] 3:19 EIA Cryptosporidium EIA Negative (Normal) Comments: PATIENT NOT FASTINGPERFORMED BY: [facility] [id number] 3:19 3-Epl-132885:19 Giardia, EIA, Ova/Parasite Comments: PATIENT NOT FASTINGPERFORMED BY: [facility] [id number] Giardia lamblia Ag, Negative (Normal) EIA Result 1 NOCP (Normal) Comments: No ova, cysts, or parasites seen. Ova + Parasite Exam Final report Comments: These results were obtained using wet preparation(s) and trichromestained smear. This test does not include testing for Cryptosporidiumparvum, Cyclospora, or Microsporidia. (Normal) : Occult Blood, Fecal, Negative (Normal) Comments: PATIENT NOT FASTINGPERFORMED BY: [facility] [id number] 19 IA 4-Bgp-567695:19 Stool Culture Comments: PATIENT NOT FASTINGPERFORMED BY: [address] [id number] Information: SRC:ST STOOL E coli Shiga Toxin EIA Negative (Normal) Result 1 NCI (Normal) Comments: No Campylobacter species isolated. Campylobacter Culture Final report (Normal) Result 1 NSS (Normal) Comments: No Salmonella or Shigella recovered. Salmonella/Shigella Screen Final report (Normal) :19 White Blood Cells (WBC), Comments: PATIENT NOT FASTINGPERFORMED BY: [facility] [id number] Stool Result 1 NWBC (Normal) Comments: No white blood cells seen. White Blood Cells (WBC), Final report (Normal) Stool :54 CBC W/AUTO DIFF WBC Comments: PATIENT NOT FASTINGPERFORMED BY: [facility] [id number] Information: [id number] (05509) Immature Grans (Abs) 0.0 {x10E3/uL} (Normal) Range: [...] PANEL, COMPREHENSIVE Comments: PATIENT NOT FASTINGPERFORMED BY: [facility] [id number] (51874) ALT (SGPT) 19 [iU]/L (Normal) Range: 0-32 [...] 99 mg/dL (Normal) Range: 65-99 :54 TSH (85575) Comments: PATIENT NOT FASTINGPERFORMED BY: [facility] [address] [facility] [id number] TSH 2.210 {uIU/mL} (Normal) Range: 0.450-4.500 :05 Urinalysis, Office (91978) UA - LEUKOCYTE ESTERASE Negative (Normal) UA [...] CHOL 310 mg/dL (Abnormal) Comments: <200 mg/dL Ajcqeffvg193-635 mg/dL Borderline>240 mg/dL High Risk TRIG 185 [...] UCOL Yellow (Normal) :26 HgA1C , Office (32493) HgA1C , Office 5.7 % (Normal) Range: [...] CHOL 286 mg/dL (Abnormal) Comments: <200 mg/dL Xkwepronv586-243 mg/dL Borderline>240 mg/dL High Risk :14 MIACRE tMICROCREAT <TEST NOT PERFORMED> {mg/g_CRE} (Normal) MIALB < 5.0 mg/L (Normal) CREU 18.4 mg/dL (Normal) :14 TSH 3.54 {uIU/mL} (Normal) Range: 0.358-3.74 :14 [facility] 0 SEEN {/hpf} (Normal) UBAC [...] (Normal) UCLAR Clear (Normal) UCOL Yellow (Normal) 2-Rqs-359154:43 BILAT SCRN DIGITAL & CAD Radiology Report [...] Cutler M.D.January 23, 2013 at 12:21:32 PM [id number] Signed GP/GP If you are the referring physician and would like to consult with theradiologist who provided this interpretation, please contact Letty Mukherjee at [phone]. If this radiologist is unavailable, youwill be directed to another radiologist to as sist. If you are a patient with a question regarding this report, pleasecontactyour referring physician directly. Professional Interpretation Provided By: [employer], Phone ,Fax These documents contain legally protected [...] on 01/24/131712 Sign by: Kvng Cutler MD 01-Lpz-92747:57 ABDOMEN/PELVIS WITH CONTRAST Radiology Report See Note [...] narrowing at the L4, L5, and L5, O0tvgtpg. IMPRESSION:Sigmoid diverticulosis. Signed:Kvng Cutler M.D.September 01, 2012 at 1:13:05 PM [phone] Signed GP/GP If you are the referring physician and would like to consult with theradiologist who provided this interpretation, please contact Letty Mukherjee at . If this radiologist is unavailable, youwill be directed to another radiologist to assist. If you are a patient with a question regarding this report, pleasecontactyour referring physician directly . Professional Interpretation Provided By: [employer], Phone , These documents contain legally protected [...] Cutler MD on 09/01/12 1323 Sign by: Kvgn Cutler MD 80-Nhq-676980:53 CRE GFRAA 109 mL/min (Normal) GFR 90 mL/min (Normal) CREAT 0.7 mg/dL (Normal) Range: 0.6-1.0 24-Huk-710665:41 KNEE,4 OR MORE VIEWS Radiology Report See [...] regarding t his report, please call our 32P0ehrueus line @ Dictated on 01/31/12 1436 by Alec MCKAY,GabrieleTranscribed on 02/01/12 1327 by ITS IMPORTSign by Kvng Cutler MD on 02/01/12 13 28 Sign by: Alec MCKAY,Kvng 9-Rga-848953:36 CULTURE, URINE URINE CULTURE See Note {CFU/mL} (Normal) Comments: COLONY COUNT 25,000-50,000 ORGANISM 1: MIXED GRAM POSITIVE ORGANISMS 26-Apr-20119:17 Urinalysis, Office (68080) UA - BILIRUBIN Negative (Normal) UA - [...] :34 TSH 3.22 {uIU/mL} (Normal) Range: 0.358-3.74 16-Qsh-349550:23 URINE KVNG CULTURE-IDENTIFICATN Comments: PATIENT NOT FASTINGPERFORMED BY: LUIS [facility] [address]Formerly [facility], [facility] [id number] Information: [id number] (15725) Antimicrobial MIHEAD (Normal) Comments: S = Susceptible; [...] primarily for treating urinary tract infections. (CLSI, B877-X87,2009) Result 1 Klebsiella pneumoniae Comments: 3,000 Colonies/mL . (Normal) Urine Final report (Normal) Culture,Comprehensive :52 Urinalysis, Office (43248) UA - BILIRUBIN Negative (Normal) UA - BLOOD Negative (Normal) UA - GLUCOSE Negative (Normal) UA - KETONES Negative mg/dL (Normal) UA - LEUKOCYTE ESTERASE Small (Normal) UA - NITRITE Negative (Normal) UA - PH 5.0 (Normal) UA - PROTEIN Negative mg/dL (Normal) UA - SPECIFIC GRAVITY 1.015 (Normal) URINE UROBILINGN HE TIMED Normal mg/dL (Normal) 0-Fsl-810043:44 TRANSVAGINAL NON- Radiology Report See Note (Normal) Comments: Exam Number: [id number] LINICAL:This is a 60-year-old female patient with [...] were not visualized. Reported By: KVNG CUTLER 7-Dpv-077331:24 PELVIC (NON ) Radiology Report See Note (Normal) Comments: Exam Number: [id number] LINICAL:This is a 60-year-old female patient with [...] were not visualized. Reported By: KVNG CUTLER 94-Ntx-691922:53 URINE KVNG CULTURE-HE COL Comments: PATIENT NOT FASTINGPERFORMED BY: [facility] Ofdejp[address]71 [facility] [id number] Information: SRC:URT [id number] COUNT (36552) Result 3 BETAGB (Normal) Comments: Beta hemolytic Streptococcus, group B2,000 Colonies/mLPenicillin continues to be the drug of choice for infectionscaused by beta hemolytic streptococci in groups A,B,C and G.No penicillin resistance has been described among theseorganisms and surveillance for emerging resistance is notrecommended. (Sahm, DF. Clinical Microbiology Newsletter,1993; RAYMOND Estrella et al. Diagnostic Microbiology andIn [...] primarily for treating urinary tract infections. (CLSI, T966-A24,2009) Result 2 Klebsiella pneumoniae Comments: 100 Colonies/mL . (Normal) Urine Final report (Normal) CultureJmamandeep chucho 06-Ybf-57730:50 Urinalysis, Office (81713) UA - LEUKOCYTE ESTERASE Trace (Normal) UA - NITRITE Negative (Normal) URINE UROBILINGN HE TIMED Normal mg/dL (Normal) UA - PROTEIN Negative mg/dL (Normal) UA - PH 5.0 (Normal) UA - BLOOD Non Hemolyzed Trace (Normal) UA - SPECIFIC GRAVITY 1.010 (Normal) UA - KETONES Negative mg/dL (Normal) UA - BILIRUBIN Negative (Normal) UA - GLUCOSE Negative (Normal) 4-Ppy-380941:00 Urinalysis, Office (09206) UA - LEUKOCYTE ESTERASE Trace (Normal) UA [...] Comments: GLU,2HPPG 75gm GLUC PPG GLUP from 0902:Y06568H. :34 CBC, EMPLOYEE [employer] 34.4 g/dL (Normal) [...] CHOL 283 mg/dL (Abnormal) Comments: <200 mg/dL Kcsxrswcb248-024 mg/dL Borderline>240 mg/dL High Risk HDL 53 [...] Report See Note (Normal) Comments: Exam Number: [id number] CLINICAL:This is a 60-year-old female patient with [...] of the thyroid. Reported By: KVNG CUTLER 83-Xql-39553:10 COLON BX P-COLBX (Normal) Comments: OPERATIONColonoscopy with [...] cassette. / LONG:chris 03/19/10TC:4REPORT SIGNED: SHREE WEINSTEIN 03/20/1010-Feb-201049-Ity-263066:08 KNEE,4 OR MORE VIEWS (MT) Radiology Report See Note (Normal) Comments: Exam Number: [id number] CLINICAL:Pain X-RAY EXAMINATION LEFT KNEE TECHNIQUE:Four views of the knee. COMPARISON:None. FINDINGS:Normal visualized distal femur. Normal visualized proximal tibia. Normal visu alized proximal fibula. There is minimal narrowing of the medial femorotibial compartment.Normal lateral femorotibial compartment. Normal patellofemoral articulation. There is no demonstrated jointeffu tamia. There is no demonstrated soft tissue swelling. IMPRESSION:Chronic degenerative changes, as discussed above. Reported By: SURINDER WOODRUFF 15-Fwh-137762:00 SPINE, LUMBAR W/W/O CONTRAST Radiology Report See Note (Normal) Comments: Exam Number: [id number] CLINICAL:59-year-old female with displaced lumbar disk low [...] Reported By: LANDY HIGHTOWER M.D. :03 TRAN-D [id number] TRAN-DIRECT SeeNote (Normal) Comments: Result: Negative Performed At: [facility] [id number] At: [facility] [address] [place], [place] [id number] :03 ANTI-CCP 765759 6 {units} (Normal) Range: 0-19 Comments: Negative [...] 0.2 EU/dl (Normal) Range: 0.2 - 1.0 5-Darius-50699:17 MAMM, BILAT SCRN DIGITAL & CAD Radiology Report See Note (Normal) Comments: Exam Number: [id number] BILATERAL SCREENING MAMMOGRAM COMPARISONComparison is made to [...] The mammogramswere also examined with computer-aided detection software(itzat.). Reported By: CHUCK PEREZ M.D. 17-Yst-893687:46 SHOULDER,MIN 2 VIEWS Radiology Report See Note (Normal) Comments: Exam Number: [id number] RIGHT SHOULDER HISTORYShoulder pain. TECHNIQUEFour views of [...] normal variant. Reported By: LUIS JORGE M.D. 81-Swl-046575:00 LQD PAP 110558 Comments: CYTOLOGY INFORMATION:- CLINICAL INFORMATION: POSTMENOPAUSAL- DATE LMP/MENOPAUSE: - COLLECTION VIAL: Thin Prep Vial- EDGE ROLLER SOURCE: CERVICAL/ENDOCERVICAL- COLLECTION TECHNIQUE: BRUSH/SPATULA ADEQ Comment (Normal) Comments: Satisfactory for evaluation. Endocervical and/or squamous metaplasticcells (endocervical component) are present. COMM . (Normal) DIAGN Comment (Normal) Comments: NEGATIVE FOR INTRAEPITHELIAL LESION AND MALIGNANCY. HPV RFLX Comment (Normal) Comments: The HPV DNA reflex criteria were not met with this specimenresult therefore, no HPV testing was performed. .Performed At: [facility] [address] [place], [place] [id number] PAPSMR Comment (Normal) Comments: The Pap smear is a screening test designed to aid in thedetection of pre-malignant and malignant conditions of theuterine cervix. It is not a diagnostic procedure andshould not be used as the sole mean s of detecting cervicalcancer. Both false-positive and false-negative reports dooccur. . 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 Plan of Care Name Dates Details Instructions Hypertensive heart disease without congestive heart failure : HTN/CAD Red Flags Indication: Hypertensive heart disease without congestive heart failure Hypertensive heart disease without congestive heart failure : Continue Current Prescription(s) Indication: Hypertensive heart disease without congestive heart failure Chronic scapular pain : Reviewed Diagnostic Tests Indication: Chronic scapular pain Atypical chest pain : Reviewed Diagnostic Tests Indication: Atypical chest pain Hypertensive heart disease without congestive heart failure [...] Diagnostic Tests Indication: Headache Headache : Reviewed Sawmill Supervisor Letter Indication: Headache Hypertensive heart disease without [...] Indication: Epigastric pain Epigastric pain : Reviewed Sawmill Supervisor Letter Indication: Epigastric pain Epigastric pain : [...] reflux disease) Planned Observations Metabolic Panel, Basic (04425)Indication: Therapeutic drug monitoring On: 46-Bzp-21724:13 Request Comments: give to jud to review HEPATIC FUNCTION PANEL (85008)Indication: Common bile duct dilation On: 59-Kze-216458:18 Request HEPATIC FUNCTION PANEL (18794)Indication: Epigastric pain On: 89-Bsp-203543:51 Request LIPID PANEL (56088)Indication: Hypercholesteremia On: 40-Pfe-533918:25 Request TSH (72860)Indication: Abnormal TSH On: 09-Dhu-841846:21 Request T4, FREE (THYROXINE) (50482)Indication: Abnormal TSH On: 70-Eax-994258:21 Request T3, FREE (TRIDOTHYRONINE) (25783)Indication: Abnormal TSH On: 06-Uxp-900944:21 Request TSH (72380)Indication: Hypercholesteremia On: :14 Request URINALYSIS, W/ MICRO (61036)Indication: Hypertensive heart disease without congestive heart failure On: 03-Jeq-009262:14 Request MICROALBUMIN: CREATININE RATIO (11847) AND (97544)Indication: Hypertensive heart disease without congestive heart failure On: 22-Yur-951247:14 Request METABOLIC PANEL, COMPREHENSIVE (10635)Indication: Hypertensive heart disease without congestive heart failure On: 52-Vwz-809647:14 Request LIPID PANEL (74015)Indication: Hypercholesteremia On: :14 Request CBC W/AUTO DIFF WBC (35904)Indication: Hypertensive heart disease without congestive heart failure On: 11-Alx-883468:14 Request Cryptosporidium Sp Ag, Direct Fluorescent Ab (48696)Indication: Diarrhea On: :44 Request GIARDIA LAMBLIA ANTIBODY (08025)Indication: Diarrhea On: :43 Request C-DIFFICILE, STOOL (94610)Indication: Diarrhea On: :43 Request OVA & PARASITE DIR SMEAR (87207)Indication: Diarrhea On: :43 Request OCCULT BLOOD FECES SCREEN (43767)Indication: Diarrhea On: :43 Request LEUKOCYTE COUNT, FECAL (04358)Indication: Diarrhea On: :43 Request KVNG CULTURE-STOOL (16779)Indication: Diarrhea On: :43 Request FECAL OCCULT HGB ASSAY- tubes sent home (24446)Indication: Encounter for Medicare annual wellness exam On: 32-Wzr-96270:28 Request TSH (57800)Indication: Hypertensive heart disease without congestive heart failure On: 74-Ovf-293950:27 Request URINALYSIS, W/ MICRO (11558)Indication: Hypertensive heart disease without congestive heart failure On: 88-Azi-984309:27 Request MICROALBUMIN: CREATININE RATIO (94629) AND (26762)Indication: Hypertensive heart disease without congestive heart failure On: 24-Phg-730276:27 Request METABOLIC PANEL, COMPREHENSIVE (97441)Indication: Hypertensive heart disease without congestive heart failure On: 11-Zdj-351909:27 Request CBC WITH MANUAL DIFF (68855)Indication: Hypertensive heart disease without congestive heart failure On: 79-Mgf-176133:27 Request LIPID PANEL (24383)Indication: Hypercholesteremia On: 05-Feb-2014 Request URINE KVNG CULTURE-HE COL COUNT (55273)Indication: Urinary frequency On: 26-Apr-20119:17 Request Magnesium (57613)Indication: Hypopotassemia On: 03-Hfy-223721:50 Request Metabolic Panel, Basic (28569)Indication: Hypopotassemia On: 93-Yxi-051426:49 Request TSH (31789)Indication: Hypercholesteremia On: :09 Request URINALYSIS, W/ MICRO (82704)Indication: Hypertensive heart disease without congestive heart failure On: :09 Request MICROALBUMIN: CREATININE RATIO (79808) AND (22579)Indication: Hypertensive heart disease without congestive heart failure On: :09 Request METABOLIC PANEL, COMPREHENSIVE (04590)Indication: Hypertensive heart disease without congestive heart failure On: :09 Request LIPID PANEL (99548)Indication: Hypercholesteremia On: : Request CBC WITH MANUAL DIFF (43115)Indication: Hypertensive heart disease without congestive heart failure On: :09 Request URINE KVNG CULTURE-HE COL COUNT (44165)Indication: Dysuria On: 1-Vym-949618:00 Request Glucose, PP/2 Hour (77536)Indication: Other specified abnormal findings of blood chemistry On: 21-May-20108:21 Request HEPATIC FUNCTION PANEL (35951)Indication: Hypercholesteremia On: :57 Request LIPID PANEL (46418)Indication: Hypercholesteremia On: :57 Request Comments: DO IN 3 MONTHS Glucose, PP/2 Hour (28015)Indication: Other specified abnormal findings of blood chemistry On: :57 Request TRAN (ANTINUCLEAR ANTIBODY) (40207)Indication: Pain in unspecified joint On: 55-Vmr-794590:29 Request C-REACTIVE PROTEIN (42446)Indication: Pain in unspecified joint On: 94-Kar-248686:29 Request CBC WITH MANUAL DIFF (51570)Indication: Pain in unspecified joint On: :29 Request CCP ANTIBODY (83116)Indication: Pain in unspecified joint On: :29 Request METABOLIC PANEL, COMPREHENSIVE (19827)Indication: Pain in unspecified joint On: :29 Request RHEUMATOID FACTOR-QUANT (60177)Indication: Pain in unspecified joint On: :29 Request SED RATE ERYTHROCYTE (31295)Indication: Pain in unspecified joint On: :29 Request TSH (96805)Indication: Pain in unspecified joint On: :29 Request FECAL OCCULT- Tubes sent home (68175)Indication: Benign essential hypertension On: :27 Request TSH (32806)Indication: Benign essential hypertension On: :09 Request URINALYSIS W/O MICRO (15442)Indication: Benign essential hypertension On: :09 Request MICROALBUMIN: CREATININE RATIO (15767) AND (26448)Indication: Benign essential hypertension On: : Request METABOLIC PANEL, COMPREHENSIVE (42770)Indication: Benign essential hypertension On: : Request LIPID PANEL (42149)Indication: Benign essential hypertension On: : Request CBC WITH MANUAL DIFF (77199)Indication: Benign essential hypertension On: : Request HEPATIC FUNCTION PANEL (36949)Indication: Hypercholesteremia On: 1-Jkx-028928:56 Request Comments: DO IN 3 MONTHS LIPID PANEL (11073)Indication: Hypercholesteremia On: 4-Rtp-670418:56 Request URINALYSIS W/O MICRO (16526)Indication: Hypertension On: :51 Request TSH (97011)Indication: Hypertension On: :51 Request MICROALBUMIN URINE QUANT (17927)Indication: Hypertension On: :51 Request METABOLIC PANEL, COMPREHENSIVE (07705)Indication: Hypertension On: :50 Request LIPID PANEL (77342)Indication: Hypertension On: :50 Request CBC WITH MANUAL DIFF (88708)Indication: Hypertension On: :50 Request Planned Procedures Nuclear Stress Test/Stress On: 25-Sep-2018 Intent SPECT/AdenosineBy: Jessica Corona DO, DO, Kathleen Renal Duplex ScanBy: Chloe SCHROEDER, On: 13-Sep-2018 Intent Jessica Proctor DO Ultrasound - RenalBy: Chloe SCHROEDER, On: 13-Sep-2018 Intent Jessica Chloe DO, Jessica X-RAY OF ABDOMEN, FLAT PLATE AND ERECT On: 21-Jun-2018 Intent (99663)By: Jud Samaniego CNP X-RAY OF CERVICAL SPINE, TWO VIEWS On: 02-Jun-2018 Intent (14891)By: Jessica Corona DO, DO, Kathleen Radiology - Lumbar SpineBy: Mohamud, On: 25-May-2018 Intent Addie ELECTROCARDIOGRAM, COMPLETE (ECG) On: 04-May-2018 Intent (24366)By: Jessica Corona DO Comments: nsr / no acute chg - pvc present and IVCD DOJessica RXJJ-BJ-KRRV BEHAVIORAL COUNSELING FOR On: 28-Apr-2018 Intent OBESITY, 15 MINUTES (G0447)By: Jessica Corona DO, DO, Kathleen DEXA SCAN AXIAL SKELETON (25644)By: On: 28-Apr-2018 Intent Jessica Corona DO, DO, Kathleen MRCP (MAGNETIC RESONANCE On: 06-Feb-2018 Intent CHOLANGIOPANCREATOGRAPHY) (S8037)By: Jessica Corona DO, DO, Kathleen ULTRASOUND OF UPPER ABDOMEN (64868)By: On: 27-Jan-2018 Intent Jessica Corona DO, DO, Kathleen Comments: attention size of CBD SCREENING DIGITAL TOMOSYNTHESIS OF On: 09-Jan-2018 Intent BREAST (01681)By: Addie Odell LPN ELECTROCARDIOGRAM, COMPLETE (ECG) On: 03-Aug-2017 Intent (41358)By: Jessica Corona DO Comments: sinus vinicio no new acute chg DOJessica MAMMOGRAM BREAST BILATERAL SCREENING On: 03-Jul-2015 Intent DIGITAL (09444)By: Jessica Corona DO, DO, Kathleen Radiology - ChestBy: Jud Samaniego CNP On: 26-May-2015 Intent Aerosol Treatment (62622)By: Danette SPRINGER, On: 26-May-2015 Intent Mildred Aerosol Treatment (98238)By: Froylan KENT, On: 05-May-2015 Intent Sandy Radiology - Lumbar SpineBy: Danette SPRINGER, On: 15-Apr-2015 Intent Jud Gunter Toradol Injection, 30 mg (J1885)By: On: 11-Apr-2015 Intent Jud Samaniego CNP ADMINISTRATION OF PNEUMOCOCCAL VACCINE On: 10-Jun-2014 Intent (G0009)By: Jessica Corona DO, DO, Kathleen PNEUM VAC ADLT/IMUMNOSPR, SBC/INTRM On: 10-Jun-2014 Intent (23999)By: Jessica Corona DO Comments: lot: [id number]: 03/22/15site/route: L del/IMamt: 0.5mLVIS signed when applicableChelsJULIEN baird DO, Kathleen IXXA-SE-DW[facility] BEHAVIORAL COUNSELING FOR On: 10-Jun-2014 Intent OBESITY, 15 MINUTES ([id number])By: Jessica Corona DO, DO, Kathleen BILATERAL MAMMOGRAMS ([id number])By: Chloe On: 04-Jun-2014 Jessica Mauricio DO, DO, Kathleen EKG ([id number])By: Jessica Corona DO On: 04-Feb-2014 Intent Jessica Corona DO Comments: nsr no acute cg Eprescribed prescriptions ([id number])By: On: 16-Nov-2013 Intent Jessica Corona DO, DO, Kathleen gastric emptying studyBy: Chloe SCHROEDER, On: 10-Oct-2013 Jessica Nice DO FLU VAC, SPLIT, >3 YEARS, INTRAMUSC On: 06-Sep-2013 Intent ([id number])By: Addie Odell LPN Comments: Lot:[id number]:6.14Amt:0.5mlRoute:IMSite: L DltdGiven By: LAUREN Fontenot signed ADMINISTRATION OF INFLUENZA VIRUS On: 06-Sep-2013 Intent VACCINE ([id number])By: Addie Odell LPN EKG ([id number])By: Jessica Corona DO On: 26-Mar-2013 Intent Jessica Corona DO Comments: nsr no acute ischemic changes/ borderline LVH Eprescribed prescriptions ([id number])By: On: 26-Mar-2013 Intent ManShaye brittonsea Eprescribed prescriptions ([id number])By: On: 23-Feb-2013 Intent Shaye Goldsmithsea MAMMOGRAM, SCREENING, BOTH BREASTS On: 19-Jan-2013 Intent ([id number])By: Jessica Corona DO, DO, Kathleen CT - Abdomen & Pelvis (IV Contrast On: 28-Aug-2012 Intent Needed)By: Jessica Corona DO, DO, Kathleen Eprescribed prescriptions ([id number])By: On: 28-Aug-2012 Intent Addie Odell DONTE DRAIN/INJECT, JOINT/BURSA ([id number])By: On: 25-Feb-2012 Intent Jessica Corona DO, DO, Kathleen Comments: inject 2 cc marcaine 1 cc kenolog Radiology - Knee - RightBy: Chloe SCHROEDER, On: 31-Jan-2012 Intent Jessica Proctor DO Eprescribed prescriptions ([id number])By: On: 25-Oct-2011 Intent Jessica Corona DO, DO, Kathleen TDAP VACCINE >7 IM ([id number])By: Chloe On: 02-Jul-2011 Jessica Mauricio DO, DO, Kathleen Comments: 0.5cc given im rt dltd lot [id number] exp 08-11-13 EKG ([id number])By: Jessica Corona DO On: 01-Feb-2011 Intent Jessica Corona DO Comments: nsr no acute changes-- borderline LVH -- but seen on echo best Bio Z ([id number])By: Jessica Corona DO On: 01-Feb-2011 Intent Jessica [...] On: 18-Aug-2009 Intent Jessica Proctor DO EKG ([id number])By: Jessica Corona DO On: 18-Aug-2009 Intent Jessica Corona DO Comments: nsr no acute changes Pulse Oximetry ([id number])By: Chloe SCHROEDER, On: 05-Mar-2009 Intent Jessica Proctor DO Comments: 93% RA Aerosol Treatment ([id number])By: Chloe SCHROEDER, On: 05-Mar-2009 Intent Jessica Proctor DO Comments: better air exchange no wheeze Solu- Medrol Injection, 125mg On: 05-Mar-2009 Intent ([id number])By: Jessica Corona DO Comments: injection given in left glutues alvarado. Pt tolerated well. [id number] Jessica SCHROEDER EKG ([id number])By: Jessica Corona DO On: 25-Feb-2008 Intent Jessica [...] Toradol Injection, 30 mg ([id number])By: On: 03-Apr-2007 Intent Omayra Foley MD Planned Medications INJECTION, KETOROLAC TROMETHAMINE, PER [...] failure Hypercholesteremia : DISCONTINUED - LIPID PANEL ([id number]) Indication: Hypercholesteremia Hypercholesteremia : DISCONTINUED - TSH ([id number]) Indication: Hypercholesteremia Hypertensive heart disease without congestive heart failure : DISCONTINUED - URINALYSIS, W/ MICRO ([id number]) Indication: Hypertensive heart disease without congestive heart failure Hypertensive heart disease without congestive heart failure : DISCONTINUED - MICROALBUMIN: CREATININE RATIO ([id number]) AND ([id number]) Indication: Hypertensive heart disease without congestive heart failure Hypertensive heart disease without congestive heart failure : DISCONTINUED - METABOLIC PANEL, COMPREHENSIVE ([id number]) Indication: Hypertensive heart disease without congestive heart failure Hypertensive heart disease without congestive heart failure : DISCONTINUED - CBC WITH MANUAL DIFF ([id number]) Indication: Hypertensive heart disease without congestive heart failure Irritable Bowel Syndrome : Patient Instructions Indication: Irritable Bowel Syndrome Abdominal pain, acute, left lower quadrant : Patient Instructions Indication: Abdominal pain, acute, left lower quadrant Abdominal pain, acute, left lower quadrant : Patient Instructions Indication: Abdominal pain, acute, left lower quadrant Encounters Office Visit On: 10-Oct-2018 13:18 Encounter Reason: Follow up Hypertension - blood pressure range : (170/90 in am and evening 130 to 150/60 nad 70).Encounter Diagnosis: BMI 33.0-33.9,adult, Non-smoker, Hypertensive heart disease without congestive heart failure, Atypical chest pain End: 10-Oct-2018 14:45 , Chronic scapular pain, Dilated cbd, acquired, Right upper quadrant pain, Nausea [facility] Office Visit On: 25-Sep-2018 13:57 Encounter Reason: [...] are helping. Going on a trip next week-[facility] bus trip.Encounter Diagnosis: Non-smoker, BMI [...] patient does not have durable power of claims correspondence clerk or living will. The patient has noticed [...] patient does not have durable power of claims correspondence clerk or living will. The patient has noticed [...] its the R kneee-- achy pain ??lucho lacey End: 31-Jan-2012 10:59 ts to wt bear [...] [facility] End: 06-Sep-2006 14:06 Payers MedicareJfk [facility] Institutea/Supplement Francy Tobar; josesito guarantor
--- OUTSIDE RECORDS SUMMARY | 2018-12-17 17:09 | XMS RPT_ITS | Continuity of Care Document ---
:1950 Author Organization [facility] Address [address] [place] [address] Phone Care Team Providers Name Role Phone Jessica Corona DO Unavailable Marcy Allen Unavailable Huber MCKAY, Dr. Benitez Unavailable [facility], [facility] Unavailable DONTE Odell Unavailable Unavailable Emily Polk [...] of colon) (Z12.11, V76.51) Comments: scope 2017- [facility] 2103 Status: Active Common bile duct [...] GI wont do ERCP with risk of pancreatitisdr napoleon --working up resist eant htn now (11/07) -- ct adrenals pending Status: Active Hypopotassemia (E87.6, 276.8) Status: Active [...] Status: Active Palpitations (R00.2, 785.1) Status: Active Positional lightheadedness (R42, 780.4) Comments: when she stands up usually Status: Active Postmenopausal (Renamed from Postmenopausal status) [...] DO, DO, Kathleen Start : 10-Oct-2018 Active Halobetasol Propionate 0.05 % External Ointment 1 (one) Ointment Ointment prn for 0 days Quantity: 1 {Tube} Refills: 1 Ordered:22-Dec-2015 Addie Odell LPN Start : 22-Dec-2015 Active HydroCHLOROthiazide 25 MG Oral Tablet 1 (one) Tablet daily for 0 days Quantity: 30 {Tablet} Refills: 3 Ordered:25-Sep-2018 Chloe SCHROEDERMayte DO, Kathleen Start : 25-Sep-2018 Active Norvasc 10 MG Oral Tablet 1 (one) Tablet daily for 0 days Quantity: 30 {Tablet} Refills: 3 Ordered:06-Nov-2018 Chloe SCHROEDERMayte DO, Kathleen Start : 06-Nov-2018 Active Prevacid 30 MG Oral Capsule Delayed Release [address] daily for 90 days Quantity: 90 {Capsule} Refills: 3 Ordered:26-Jul-2018 Chloe SCHROEDERMayte DO, Kathleen Start : 26-Jul-2018 Active PROAIR HFA, 108 (90 Base)MCG/ACT (Inhalation Aerosol Solution) 2 (two) Puff Puff tid for 0 days Quantity: 1 {Inhaler} Refills: 0 Ordered:09-Jun-2015 Jud Samaniego CNP Start : 09-Jun-2015 Active Promethazine HCl 25 MG Oral Tablet 1 (one) Tablet q8hr prn for 0 days Quantity: 10 {Tablet} Refills: 0 Ordered:04-Oct-2018 Chloe SCHROEDERMayte DO, Kathleen Start : 04-Oct-2018 Active TiZANidine [...] days Quantity: 14 {Tablet} Refills: 0 Ordered:11-Sep-2018 Chloe SCHROEDERMayte DO, Kathleen Start : 11-Sep-2018 End : 18-Sep-2018 Inactive BACTRIM DS, 800-160MG (Oral Tablet) 1 (one) Tablet bid for 5 days Quantity: 10 {Tablet} Refills: 0 Ordered:26-Apr-2011 Jud Samaniego CNP Start : 26-Apr-2011 End : 01-May-2011 Inactive [...] Start : 25-May-2018 End : 28-May-2018 Inactive Comments:DGXIMTnibrruw-318Puruokds-987Gasxoflkq-000OD Foqj-094SB-Qrpdrzkc of Right Side (M54.31)#Three CELEBREX, 200MG (Oral [...] Start : 10-Sep-2010 End : 20-Sep-2010 Inactive CloNIDine HCl 0.1 MG Oral Tablet 1 Tablet qd for bp >180 for 30 days Quantity: 30 {Tablet} Refills: 0 Ordered:13-Sep-2018 Mayte Corona DO, DO, Kathleen Start : 13-Sep-2018 End : 13-Oct-2018 Inactive CYCLOBENZAPRINE HCL, 5MG (Oral Tablet) 1 [...] days Quantity: 4 {Tablet} Refills: 0 Ordered:07-Feb-2012 Chloe SCHROEDER JessicaChloe Jessica Start : 07-Feb-2012 End : 11-Feb-2012 Inactive [...] for 2 days Refills: 0 Ordered:03-Aug-2010 Danette SPRINGER Mildred Start : 28-Jul-2010 End : 30-Jul-2010 Inactive [...] : 21-Aug-2010 Discontinued Comments:This order discontinued per -[facility]. TENORMIN, 50MG (Oral Tablet) 1 Tablet qd [...] Stress Report Result: Comments: See Note; NOTES: [facility] Cardiovascular Services [address] [place] [address] MR#: [id number] Acct: [id number] Name: NEISHA TOBAR Rep #: [id number] : 68 From: Baron Gonzalez MD Primary [...] ejection fraction. 10/02/18 1454 <Electronically signed b y Baron Gonzalez MD> Date Baron Gonzalez MD CC: Jessica Corona DO Date Dictated: 10/02/181447 Date Transcribed: 10/02/181447 Tank Car Inspector: CO Signed 28-Sep-2018 Inital Evaluation (1) - PT Result: Comments: See Note; NOTES: [facility] Physical Therapy [address] [place] [address] Fax REHABILITATION SERVICES INITIAL EVALUATION MR#: [id number] Acct: [id number] Name: NEISHA TOBAR Rep #: [id number] : 1950 68 From: Maliha Rudolph PT, Cert. 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. 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 HTN. GERD. 2005 TWO LUMBAR DISCECTOMIES - BOTH BY DR. [...] INDEP GAIT AND TRANSFERS. 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 TOMI UE'S WFL. Sensory deficit: NO. ROM deficit: TOMI UE'S WFL WITH SLIGHT DEFICIT OF LEFT SHOULDER ROM AND STRENGTH COMPARED TO RIGHT. Reflexes: 2/2 TOMI UE'S. Dural Signs: NEGATIVE TOMI UE'S. Cervical Mvmt Loss: Flex: NIL. Pro: NIL. Ext: MOD. Ret: MOD TO REHANA. RSB: MIN. LSB: [place] N. R Rot: MIN. L Rot: MIN. [...] to be FAXED BACK to us at [phone] for Medicare purposes. Please let me know if there are questions or concerns re garding this plan of care. Physician Signature: Date: <Electronically signed by Maliha Rudolph PT, Cert. MDT> 09/28/18 1313 CC: Jessica Corona DO NAZANIN Signed For Medicare only, by signing this I certify the plan of care. Physicians Signature Date 24-Sep-2018 Renal Artery Duplex Result: Comments: See Note; NOTES: [facility] Cardiovascular Services [address] [place] [address] Renal Artery Duplex Ultrasound 09/22/18 0802 MR#: [id number] Acct: [id number] Name: NEISHA TOBAR Rep #: [id number] : 1950 68 From: Ciro Maravilla MD Attending Dr: Jesscia Corona DO Status: REG CLI Ordering Dr: Jessica Corona DO Date: 09/22/18 Location: [facility] Sex: F C Admitt ed: Reason For [...] Dictated: 09/22/18 0802 Date Transcribed: 09/24/18 1013 Tank Car Inspector: Signed 18-Sep-2018 Kidney and Bladder Result: Comments: See Note; NOTES: [facility] Imaging Services [address] [place] [address] Kidney and Bladder MR#: [id number] Acct: [id number] Name: NEISHA TOBAR Rep #: [id number] : 1950 F 68 From: Jorge Holland MD PCP: Jessica Corona DO Status: REG CLI Study: Kidney and Bladder Date of Exam: 09/18/18 Exam# [id number] Ordering Dr: Jessica Corona DO STUDY: RENAL [...] Service support , CC: Jessica Corona DO Tank Car Inspector: Signed 12-Sep-2018 12 Lead Electrocardiogram Result: Comments: See Note; NOTES: [facility] Cardiovascular Services [address] [place] [address] 12 Lead EKG 09/09/18 0949 MR#: [id number] Acct: [id number] Name: NEISHA TOBAR Shubham Mathews #: [id number] : 1950 68 From: Ian Gudino MD [...] Abnormal ECG Confirmed by TERESE MCKAY, IAN ([id number]), graphics editor CHARITY VILLEGAS ([id number]) on 09/12/2018 11:06:08 AM Referred By: Devora Corona Confirmed By:IAN GUDINO MD 09/12/18 1106 Date Ian Gudino MD CC: Anel Hunter MD; Jessica Corona DO Signed 09-Sep-2018 Emergency Department Summary Result: Comments: See Note; NOTES: [facility] Medical Records Department [address] [place] [address] Emergency Department Summary 09/09/18 0934 MR#: [id number] Acct: [id number] Name: NEISHA TOBAR Rep #: [id number] : 1950 68 From: Anel Hunter MD [...] Hypertension, improved This note was generated with 404 Found! dictation software. It may contain incorrect words, [...] problems, contact your Primary Care Provider. Call [employer] [facility] ([phone]) or report to the [facility] Emergency Room. Call 911 if necessary. 09/09/18 1633 <Electronically signed by Anel Hunter MD> Date Anel Hunter MD Cos igner Signature (If Indicated): Date CC: Jessica Corona DO 09-Sep-2018 Discharge Instruction Result: Comments: See Note; NOTES: [facility] Medical Records Department [address] [place], [place] [address] [address] Discharge Instruction 09/09/18 1203 MR#: [id number] Acct: [id number] Name: Lydia TOBAR Rep #: [id number] : 1950 68 From: Anel Hunter MD [...] your Primary Care Provider. Call [facility] ([phone]) or report to the closest Emergency Room. Call 911 if necessary. 09/09/18 1207 < Electronically signed by Anel Hunter MD> Date Anel Hunter MD Cosigner Signature (If Indicated): Date CC: Jessica Corona DO 09-Sep-2018 Brain/Head without Contrast Result: Comments: See Note; NOTES: [facility] Imaging Services [address] [place] [address] Brain/Head without Contrast MR#: [id number] Acct: [id number] Name: NEISHA TOBAR Rep #: [id number] : 1950 F 68 From: Italo Brown DO PCP: Jessica Corona DO Status: REG ER Study: Brain/Head without Contrast Date of Exam: 09/09/18 Exam# [id number] Ordering Dr: Anel Hunter MD ST UDY: [...] CC: Anel Hunter MD; Jessica Corona DO Tank Car Inspector: Signed 21-Jun-2018 Abd Inc Decub and/or Erect Result: Comments: See Note; NOTES: [facility] Imaging Services [address] [place] [address] Abd Inc Decub and/or Erect MR#: [id number] Acct: [id number] Name: NEISHA TOBAR Rep #: [id number] : 1950 F 68 From: Tapan Gore MD PCP: Jessica Corona DO Status: REG CLI Study: Abd Inc Decub and/or Erect Date of Exam: 06/21/18 Exam# [id number] Ordering Dr: Jud Samaniego Y: X-RAY - [...] , Service support , CC: Jud Samaniego HEAD OF GEOGRAPHY; Jessica Corona DO Tank Car Inspector: Signed 02-Jun-2018 Cerv Spine 2 or 3 Views Result: Comments: See Note; NOTES: [facility] Imaging Services [address] [place] [address] Cerv Spine 2 or 3 Views MR#: [id number] Acct: [id number] Name: NEISHA TOBAR Shubham Rep #: [id number] : 1950 F 68 From: Jamil Paulson MD PCP: Jessica Corona DO Status: REG CLI Study: Cerv Spine 2 or 3 Views Date of Exam: 06/02/18 Exam# [id number] Ordering Dr: Jessica Corona DO ST UDY: X-RAY - CERVICAL SPINE REASON FOR [...] Service support , CC: Jessica Corona DO Tank Car Inspector: Signed 25-May-2018 L/S Spine Min 4 Views Result: Comments: See Note; NOTES: [facility] Imaging Services [address] [place] [address] L/S Spine Min 4 Views MR#: [id number] Acct: [id number] Name: NEISHA TOBAR Rep #: [id number] : 1950 F 68 From: Mikayla Guerrier MD PCP: Jessica Corona DO Status: REG CLI Study: L/S Spine Min 4 Views Date of Exam: 05/25/18 Exam# [id number] Ordering Dr: Addie Mallory HEAD OF GEOGRAPHY-C STUDY: X -RAY - LUMBAR SPINE REASON [...] , CC: DEYSI Mallory; Jessica Corona DO Tank Car Inspector: Signed 09-May-2018 Dexa Bone Density Study Result: Comments: See Note; NOTES: [facility] Imaging Services [address] [place] [address] Dexa Bone Density Study MR#: [id number] Acct: [id number] Name: NEISHA TOBAR Rep #: [id number] : 1950 F 68 From: Kvng Cutler MD PCP: Jessica Corona DO Status: [facility] CLI Study: Dexa Bone Density Study Date of Exam: 05/09/18 Exam# [id number] Ordering Dr: Jessica Corona DO STUDY: DUAL [...] Kvng Cutler MD at 8:25 EDT Tel [phone], Service support , CC: Jessica Corona DO Tank Car Inspector: Signed 14-Feb-2018 MRCP Abdomen without Contrast Result: Comments: See Note; NOTES: [facility] Imaging Services [address] [place] [address] MRCP Abdomen without Contrast MR#: [id number] Acct: [id number] Name: NEISHA TOBAR Rep #: [id number] : 1950 F 68 From: Vj Rajput MD PCP: Jessica Corona DO Status: REG CLI Study: MRCP Abdomen without Contrast Date of Exam: 02/14/18 Exam# [id number] Ordering Dr: Rigo Corona DO STUDY: MR [...] Service support , CC: Jessica Corona DO Tank Car Inspector: Signed 03-Feb-2018 Abdomen Limited Result: Comments: See Note; NOTES: [facility] Imaging Services [address] [place] [address] Abdomen Limited MR#: [id number] Acct: [id number] Name: NEISHA TOBAR Rep #: [id number] OB: 1950 F 68 From: Kvng Cutler MD PCP: Jessica Corona DO Status: REG CLI Study: Abdomen Limited Date of Exam: 02/03/18 Exam# [id number] Ordering Dr: Jessica Corona DO STUDY: ABDOMINAL [...] Kvng Cutler MD at 13:52 EDT Tel [phone], Service support , CC: Jessica Corona DO Tank Car Inspector: Signed 31-Jan-2018 SCREENING MAMM (CAD), BILAT Result: Comments: See Note; NOTES: [facility] Imaging Services [address] [place] [address] SCREENING MAMM (CAD), BILAT MR#: [id number] Acct: [id number] Name: NEISHA TOBAR Rep #: [id number] : 1950 F 67 From: Kvng Cutler MD PCP: Jessica Corona DO Status: [facility] CLI Study: SCREENING MAMM (CAD), BILAT Date of Exam: 01/31/18 Exam# [id number] Ordering Dr: Lidia Corona DO MAMMOGRAPHY - [...] delay biopsy of a clinically suspicious abnormality. [id number] Electronically Signed: Kvng Cutler MD at 14:26 EDT Tel [phone], Service supp ort , CC: Jessica Corona DO Tank Car Inspector: Signed 28-Aug-2015 Bilat Scrn Digital AND CAD Result: Comments: See Note; NOTES: [facility] Imaging Services [address] [place] [address] Breast Imaging Report MR#: [id number] Acct: [id number] Name: NEISHA TOBAR Rep # : [id number] : 1950 F 65 From: Kvng Cutler MD PCP: Jessica Corona DO Status: REG CLI Study: Bilat Scrn Digital AND CAD Date of Exam: 08/28/15 Exam# [id number] Ordering Dr: Raymond Corona DO MAMMOGRAPHY - [...] sent to the patient by the [facility] within 30 days. Approximately 10% of breast cancers are not detected by mammography. A normal mammogram should not delay biopsy of a clinically suspicious abnormality. Electronically Mirian d: Kvng Cutler MD at 8:05 EDT Tel [phone], Service support [phone], CC: Jessica Corona DO Tank Car Inspector: Signed 03-Jun-2015 PT Discharge Summary Result: Comments: See Note; NOTES: [facility] [address] [place] [address]. [address] [place], [place] [address] Fax REHABILITATION SERVICES DISCHARGE SUMMARY MR#: [id number] Acct: [id number] Name: NEISHA TOBAR Rep #: [id number] : 1950 65 From: Sandy Nelson Referring [...] clinic. Sandy Nelson, PT T: NTS JOB: [id number] <Electronically signed by Sandy Nelson > 06/03/15 1726 CC: Signed 26-May-2015 Chest PA and Lateral Result: Comments: See Note; NOTES: [facility] Imaging Services [address] [place] [address] Radiology Report MR#: [id number] Acct: [id number] Name: NEISHA TOBAR Rep #: [id number] : 1950 F 65 From: Zoila Allen MD PCP: Jessica Corona DO Status: REG CLI Study: Chest PA and Lateral Date of Exam: 05/26/15 Exam# [id number] Ordering Dr: Jud Samaniego STUDY: X-RAY C [...] MD at 12:07 EDT , Service support [phone], RAD /Chest PA and Lateral IMPRESSION: There is a left midlung field calcified granuloma. There is bilateral lower lobe scarring/atelectasis. No radiographic evidence of bronchitis. Electronically Sig kyle: Zoila Allen MD at 12:07 EDT , Service support [phone], CC: Jud Samaniego; Jessica Corona DO Tank Car Inspector: Signed 13-May-2015 Inital Evaluation - PT Result: Comments: See Note; NOTES: [facility] Therapy [facility] [address] [place] [address] Fax REHABILITATION SERVICES INITIAL EVALUATION MR#: [id number] Acct: [id number] Name: NEISHA TOBAR Rep #: [id number] : 1950 65 From: Sandy Neslon Referring Dr.: Jud Samaniego Status: REG RCR [...] needed. Sandy Nelson, PT T: NTS JOB: [id number] <Electronically signed by Sandy Nelson > 05/13/15 0818 CC: Signed For Medicare only, by signing this I certify the plan of care. Physicians Signature Date 16-Apr-2015 L/S Spine Min 4 Views Result: Comments: See Note; NOTES: [facility] Imaging Services [address] [place] [address] Radiology Report MR#: [id number] Acct: [id number] Name: ELIZABETNEISHA A Rep #: [id number] : 1950 F 65 From: Rdo Pollard DO PCP: Jessica Corona DO Status: REG CLI Study: L/S Spine Min 4 Views Date of Exam: 04/16/15 Exam# [id number] Ordering Dr: Jud Samaniego STUDY: X-RA Y [...] Rod Pollard DO at 16:48 EDT Tel [phone], Service support [phone], RAD/L/S Spine Min 4 Views IMPRESSION: Degenerative ch anges of the spine, as detailed above. Electronically Signed: Rod Pollard DO at 16:48 EDT Tel [phone], Service support [phone], CC: Jud Corona DO Tank Car Inspector: Signed 11-Jun-2014 Bilat Scrn Digital & CAD Result: Comments: See Note; NOTES: [facility] Imaging Services [address] [place] [address] Breast Imaging Report MR#: [id number] Acct: [id number] Name: NEISHA TOBAR Rep #: [id number] : 1950 F 64 From: Ian Lamas MD PCP: Jessica Corona DO Status: REG CLI Exam# [id number] Ordering Dr: Jessica Corona DO MAMMOGRAPHY - [...] 17:24 EDT Tel , Ser vice support [phone], CC: Jessica Corona DO Tank Car Inspector: Signed 29-Oct-2013 Gastric Emptying Study Result: Comments: See Note; NOTES: [facility] Imaging Services [address] [place] [address] Nuclear Medicine Report MR#: [id number] Acct: [id number] Name: NEISHA TOBAR Rep #: [id number] : 1950 F 63 From: Celestine Garza DO PCP: Status: REG CLI Study: Gastric Emptying Study Date of Exam: 10/29/13 Exam# [id number] Ordering Dr: Jessica Corona DO CLINICAL: 63 [...] Service support , CC: Jessica Corona DO Tank Car Inspector: Signed Family History Unknown Family Member Name Dates Details Sister 1 Comments: Breast CA Status: Active Sister 2 Comments: Colon CA Status: Active Social History Name Dates Details Alcohol Use Comments: Occasional alcohol use, Drinks wine Status: Active Caffeine Use Comments: 3 QD Status: Active 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 Exercise History Comments: Light Status: Active Living Situation Comments: Lives with spouse Status: Active No Drug Use Status: Active Tobacco/Smoke Exposure Comments: Exposed to passive smoke 02/07/12 Status: Active Vital Signs Date Test Result Details 30-Zkl-261295:49 Temperature 97.5 f Comments: Method: Temporal Pulse 61 /min Comments: Pattern: Regular Respiration Rate 16 /min Comments: Pattern: Unlabored O2 SAT 97 % Comments: Room air BP Systolic 176 mm[Hg] Comments: Patient Position: Sitting; Cuff Location: Left Arm; Cuff Size: Standard BP Diastolic 80 mm[Hg] Comments: Patient Position: Sitting; Cuff Location: Left Arm; Cuff Size: Standard Weight 196 lb Height 64 in Body Mass Index Calculated 33.64 kg/m2 Body Surface Area Calculated 1.94 m2 :26 Pulse 69 /min Comments: Pattern: Regular [...] see. but [place] [facility] Pulse 70 /min Comments: Pattern: [...] kg/m2 Body Surface Area Calculated 1.99 m2 36-Yms-959961:27 Pulse 72 /min Comments: Pattern: Regular Respiration [...] 0.00 cm Results Date Description Value Details 92-Kdf-902502:17 Miscellaneous Lab Comments: Comments: [id number],SEP,REF,LAVTest(s) Ordered: [id number],SEP,REF,[facility] [address] [place], [address] Procedure MISC Comments: TEST RESULT LIMITSMetanephrines, Frac., Pl. FreeNormetanephrine, Pl 54 pg/mL 0 - 145Metanephrine, Pl <10 pg/mL 0 - 62Concentratio LAB (Normal) ns of Normetanephrine between 146 and 487 pg/mL,and Metanephrine between 63 and 255 pg/mL are consideredindeterminate. Follow-up biochemical testing is recommendedwhen patient levels fall within this in TEST determinate range.These tests include repeat testing of plasma/urinaryfractionated metanephrines and plasma catecholamines. TESTING PERFORMED AT [facility]. ORIGINAL REPORT ON FILE IN LAB CONTAINS ADDITIONAL TEST SITE INFORMATION. :45 ALDOSTERONE (30451) Comments: PATIENT NOT FASTINGPERFORMED BY: [address] [id number] Aldosterone 19.6 ng/dL (Normal) Range: 0.0-30.0 Comments: This test was developed and its performance characteristicsdetermined by [employer] [facility] [employer]. It has not been cleared or approvedby the Food and Drug Administration. :45 RENIN (85825) Comments: PATIENT NOT FASTINGPERFORMED BY: [address] [id number] Renin Activity, Plasma 0.846 {ng/mL/hr} Range: 0.167-5.380 (Normal) Comments: This test was developed and its performance characteristicsdetermined by [facility] [employer]. It has not been cleared or approvedby the Food and Drug Administration. :00 METANEPHRINES - URINE (06173) Comments: PATIENT NOT FASTINGPERFORMED BY: [address] [id number] Metanephrine, U,24hr 84 {ug/24_hr} (Normal) Range: 45-290 Comments: (Hypertensive) >17 years 11 months: 35 - 460 Metanephrine, Ur 84 ug/L (Normal) Normetanephr.,U,24h 352 {ug/24_hr} (Normal) Range: 82-500 Comments: (Hypertensive) >17 years 11 months: 110 - 1050 Normetanephrine, Ur 352 ug/L (Normal) 54-Kmo-60300:00 CATECHOLAMINES TOTAL, URINE Comments: PATIENT NOT FASTINGPERFORMED BY: [address] [id number] Information: START 09/14/18 @5AM (99407) Dopamine, Ur, 24hr 155 {ug/24_hr} (Normal) Range: 0-510 Dopamine, Urine 155 ug/L (Normal) Comments: Verified by repeat analysis Norepinephrine,U,24h 52 {ug/24_hr} (Normal) Range: 0-135 Norepinephrine, Ur 52 ug/L (Normal) Comments: Verified by repeat analysis Epinephrine, U, 24hr 8 {ug/24_hr} (Normal) Range: 0-20 Epinephrine, Urine 8 ug/L (Normal) Comments: Verified by repeat analysis :00 URINE VMA (64446) Comments: PATIENT NOT FASTINGPERFORMED BY: [facility] [address] [facility] [id number] VMA, Urine, 24hr 2.4 {mg/24_hr} (Normal) Range: 0.0-7.5 Comments: This test was developed and its performance characteristicsdetermined by [facility]. It has not been cleared or approvedby the Food and Drug Administration. VMA, Urine 2.4 mg/L (Normal) :38 Basic Metabolic Profile (BMP) Comments: [facility] [address] [place], [place], [address] GAP 7 (Normal) Range: 5-15 CO2 27.0 [...] A.D.A. criteria.Please note revised GLUCOSE reference range prjpdxqfy94/02/2018. 89-Xqx-84576:38 CBC W/Diff, Automated Comments: [facility] [address] [place], [place], [address] Absolute Lymph 1.21 {X10_3/ul} (Normal) Range: 0.83-4.51 [...] 4.2-5.4 WBC 5.8 K/mm3 (Normal) Range: 4.4-11.0 25-Zfv-837122:49 Basic Metabolic Profile (BMP) Comments: [facility] [address] [place], [place], [address] GAP 5 (Normal) Range: 5-15 CO2 30.0 [...] A.D.A. criteria.Please note revised GLUCOSE reference range njensmphe54/02/2018. 5-Afk-371837:47 URINE KVNG CULTURE-HE COL Comments: PERFORMED BY: [facility] [facility] [id number] Information: [id number] SRC:UR COUNT (66526) Antimicrobial MIHEAD (Normal) Comments: S = Susceptible; [...] Final report Culture,Comprehensive (Abnormal) 21-Jun-20188:17 Urinalysis, Office (12327) UA - LEUKOCYTE ESTERASE Negative (Normal) UA - NITRITE Negative (Normal) URINE UROBILINGN HE TIMED Normal mg/dL (Normal) UA - PROTEIN Negative mg/dL (Normal) UA - PH 7.5 (Normal) UA - BLOOD Negative (Normal) UA - SPECIFIC GRAVITY 1.010 (Normal) UA - KETONES Negative mg/dL (Normal) UA - BILIRUBIN Negative (Normal) UA - GLUCOSE Negative (Normal) :39 CBC, PLATELETS & AUT DIFF Comments: PATIENT NOT FASTINGPERFORMED BY: [employer] [facility] [id number] (64718) Immature Grans (Abs) 0.0 {x10E3/uL} (Normal) Range: [...] 3.77-5.28 WBC 4.8 {x10E3/uL} (Normal) Range: 3.4-10.8 82-Avk-53072:39 C-REACT PROT HIGH SENS(hsCRP) Comments: PATIENT NOT FASTINGPERFORMED BY: [facility]org[facility] CenterOqkjud1089 [facility] [id number] (78785) C-Reactive Protein, Cardiac 2.22 mg/L (Normal) Range: 0.00-3.00 Comments: Relative Risk for Future Cardiovascular Event Low <1.00 Average 1.00 - 3.00 High >3.00 25-Fih-79050:39 ESR-F (SED RATE ERYTHROCYTE - Comments: PATIENT NOT FASTINGPERFORMED BY: [facility] [facility] [id number] FEMALE) (70267) Sedimentation Rate-Westergren 9 mm/h (Normal) Range: 0-40 01-Ezs-67304:39 LDH (LD) (LACTATE DEHYDROGENASE) Comments: PATIENT NOT FASTINGPERFORMED BY: [facility] [facility] [id number] ([id number]) LDH 209 [iU]/L (Normal) Range: 119-226 Hemoglobin A1c 5.5 % (Normal) Comments: PATIENT NOT FASTINGPERFORMED BY: [facility] [facility] [id number] 3:06 Range: 4.8-5.6 Comments: . Pre-diabetes: 5.7 - 6.4 Diabetes: >6.4 Glycemic control for adults with diabetes: <7.0 Written Authorization WAR (Normal) Comments: PATIENT NOT FASTINGPERFORMED BY: [facility] [facility] [id number] 3:06 Comments: Written Authorization Received.Authorization received from ANNETTE POWELL LPN [id number] by Lidia Reddy 41-Vwt-324088:06 TSH (87185) Comments: PATIENT NOT FASTINGPERFORMED BY: [facility] [facility] [id number] TSH 2.370 {uIU/mL} (Normal) Range: 0.450-4.500 80-Yjo-123557:06 METABOLIC PANEL, COMPREHENSIVE Comments: PATIENT NOT FASTINGPERFORMED BY: [facility] Iyakrl9036 [facility] [id number] (03297) ALT (SGPT) 19 [iU]/L (Normal) Range: 0-32 [...] 8-27 Glucose 102 mg/dL (Abnormal) Range: 65-99 29-Hiq-409279:06 CBC W/AUTO DIFF WBC (20485) Comments: PATIENT NOT FASTINGPERFORMED BY: [facility] CenterIvclwb4166 [facility] [id number] Immature Grans (Abs) 0.0 {x10E3/uL} (Normal) Range: [...] (Normal) Range: 3.4-10.8 :56 Free T3 Comments: [facility] [address] [place], [place], [phone] FREE T3 2.7 pg/mL (Normal) Range: 2.18-3.98 :56 Lipid Profile Comments: [facility] [address] [place], [place], [phone] VLDL 34 mg/dL (Normal) Range: 5-40 LDL [...] mg/dL High Risk :56 Liver Profile Comments: [facility] [address] [place], [address] ; ov 30 D BILI 0.12 mg/dL (Normal) Range: 0.00-0.30 T BILI 0.50 mg/dL (Normal) Range: 0.20-1.00 ALT 24 U/L (Normal) Range: 13-56 ALK P 67 U/L (Normal) Range: 45-117 AST 19 U/L (Normal) Range: 15-37 GLOB 3.7 g/dL (Normal) Range: 2.2-4.2 ALB 3.8 g/dL (Normal) Range: 3.2-5.0 T PROT 7.5 g/dL (Normal) Range: 6.4-8.2 :56 T4 Free Direct Comments: [facility] [address] [place], [id number] T4 FREE DIRECT 0.97 ng/dL (Normal) Range: 0.76-1.46 :56 Thyroid Stim Hormone (TSH) Comments: [address] [place], [address] TSH 3.42 {uIU/mL} (Normal) Range: 0.358-3.74 0-Oph-605371:52 GGTP 30 U/L (Normal) Comments: [facility] [address] [place], [id number] Range: 5-55 6-Bcn-836722:52 Liver Profile Comments: [address] [place], [address] D BILI 0.15 mg/dL (Normal) Range: 0.00-0.30 T BILI 1.10 mg/dL (Abnormal) Range: 0.20-1.00 ALT 31 U/L (Normal) Range: 12-78 ALK P 61 U/L (Normal) Range: 45-117 AST 21 U/L (Normal) Range: 15-37 GLOB 3.8 g/dL (Normal) Range: 2.2-4.2 ALB 3.8 g/dL (Normal) Range: 3.4-5.0 Comments: Please note revised Albumin AND Globulin reference rangeeffective 2017. T PROT 7.6 g/dL (Normal) Range: 6.4-8.2 6-Fhc-150251:36 Bilirubin, Direct Comments: LIVER AND GGTP FOR [facility] [address] [place], [place], [id number] D BILI 0.14 mg/dL (Normal) Range: 0.00-0.30 3-Wyr-903765:36 CBC W/Diff, Automated Comments: LIVER AND GGTP FOR [facility] [address] [place], [place], [address] Absolute Lymph 1.45 {X10_3/ul} (Normal) Range: 0.83-4.51 [...] 4.2-5.4 WBC 6.4 K/mm3 (Normal) Range: 4.4-11.0 4-Vij-940370:36 Comprehensive Metabolic Profil Comments: LIVER AND GGTP FOR [facility] [address] [place], [address] GAP 9 (Normal) Range: 5-15 CO2 27.0 [...] 7-18 GLU 91 mg/dL (Normal) Range: 70-110 7-Leo-797622:36 GGTP 22 U/L (Normal) Comments: LIVER AND GGTP FOR [facility] [address] [place], [address] Range: 5-55 2-Ixc-051282:36 Lipid Profile Comments: LIVER AND GGTP FOR [facility] [address] [place], [address] VLDL 56 mg/dL (Abnormal) Range: 5-40 [...] 200-240 mg/dL Borderline >240 mg/dL High Risk 6-Pbr-420568:36 Microalb:Creat Ratio,Random UR Comments: LIVER AND GGTP FOR [facility] [address] [place], [address] MALB:CREAT 38.1 {mg/g_CRE} (Abnormal) MICROALBUMIN,UR 43.8 mg/L (Normal) UR CREAT 115.00 mg/dL (Normal) 9-Dja-028822:36 Thyroid Stim Hormone (TSH) Comments: LIVER AND GGTP FOR [facility] [address] [place], [address] TSH 4.13 {uIU/mL} (Abnormal) Range: 0.358-3.74 9-Qqq-340234:36 Urinalysis, Complete Comments: [facility] U[facility] Obtained? [facility] [address] [place], [address] HYALINE CAST 0-5 SEEN {/lpf} Range: [...] BIOPSY (CHOOSE SITE) See Note (Normal) Comments: [facility] [address] [place], [address] 0:00 Comments: Patient: NEISHA TOBAR : 1950 (66/F) Acct Num: [id number] Phys: Steve Richard Unit Num: [id number] Loc: LABSPEC Specimen: [id number] Received: 02/11/16 - 0754 Spec Type: COLON BX TISSUES TISSUES: GROSS DESCRIPTION Received is one container labeled with the patient name and designated biopsy polyp right colon. The specimen consists of multiple irre gular fragments of light ramirez soft tissue that in aggregate measure 0.2 x 0.1 x 0.1 cm. The specimen is totally submitted in one cassette. / AM:chris 02/10/16 TC:5 CPT:83721 HEADER OPERATION: Colon oscopy with biopsy PRE-OP DIAGNOSIS: High-risk screen/polyp TISSUE SUBMITTED: Biopsy, polyp, right colon - rule out adenoma MICROSCOPIC DESCRIPTION Slides are reviewed. MICROSCOPIC DIAGNOS IS Right colon polyp, biopsy: Hyperplastic polyp. AM:crow 02/11/16 Signed Samuel [facility] 02/11/16 <signature on file> C difficile Toxins A+B, Negative (Normal) Comments: PATIENT NOT FASTINGPERFORMED BY: [facility] [facility] [id number] 3:19 EIA Cryptosporidium EIA Negative (Normal) Comments: PATIENT NOT FASTINGPERFORMED BY: [facility] [facility] [id number] 3:19 0-Hin-031948:19 Giardia, EIA, Ova/Parasite Comments: PATIENT NOT FASTINGPERFORMED BY: [place] [id number] [facility] [id number] Giardia lamblia Ag, Negative (Normal) EIA Result 1 NOCP (Normal) Comments: No ova, cysts, or parasites seen. Ova + Parasite Exam Final report Comments: These results were obtained using wet preparation(s) and trichromestained smear. This test does not include testing for Cryptosporidiumparvum, Cyclospora, or Microsporidia. (Normal) : Occult Blood, Fecal, Negative (Normal) Comments: PATIENT NOT FASTINGPERFORMED BY: [place] [id number] [facility] [id number] 19 IA :19 Stool Culture Comments: PATIENT NOT FASTINGPERFORMED BY: [address] [id number] Information: SRC:ST STOOL E coli Shiga Toxin EIA Negative (Normal) Result 1 NCI (Normal) Comments: No Campylobacter species isolated. Campylobacter Culture Final report (Normal) Result 1 NSS (Normal) Comments: No Salmonella or Shigella recovered. Salmonella/Shigella Screen Final report (Normal) :19 White Blood Cells (WBC), Comments: PATIENT NOT FASTINGPERFORMED BY: [facility] [facility] [id number] Stool Result 1 NWBC (Normal) Comments: No white blood cells seen. White Blood Cells (WBC), Final report (Normal) Stool :54 CBC W/AUTO DIFF WBC Comments: PATIENT NOT FASTINGPERFORMED BY: [facility] [facility] [id number] Information: [id number] (96083) Immature Grans (Abs) 0.0 {x10E3/uL} (Normal) Range: [...] PANEL, COMPREHENSIVE Comments: PATIENT NOT FASTINGPERFORMED BY: [facility] [facility] [id number] (34559) ALT (SGPT) 19 [iU]/L (Normal) Range: 0-32 [...] 99 mg/dL (Normal) Range: 65-99 :54 TSH (06853) Comments: PATIENT NOT FASTINGPERFORMED BY: [facility] Lkbclx[address] [facility] [id number] TSH 2.210 {uIU/mL} (Normal) Range: 0.450-4.500 :05 Urinalysis, Office (42150) UA - LEUKOCYTE ESTERASE Negative (Normal) UA [...] CHOL 310 mg/dL (Abnormal) Comments: <200 mg/dL Sblihwvcd729-231 mg/dL Borderline>240 mg/dL High Risk TRIG 185 [...] UCOL Yellow (Normal) :26 HgA1C , Office (28958) HgA1C , Office 5.7 % (Normal) Range: [...] CHOL 286 mg/dL (Abnormal) Comments: <200 mg/dL Vbzntruar575-283 mg/dL Borderline>240 mg/dL High Risk :14 MIACRE tMICROCREAT <TEST NOT PERFORMED> {mg/g_CRE} (Normal) MIALB < 5.0 mg/L (Normal) CREU 18.4 mg/dL (Normal) :14 TSH 3.54 {uIU/mL} (Normal) Range: 0.358-3.74 :14 [facility] 0 SEEN {/hpf} (Normal) UBAC [...] (Normal) UCLAR Clear (Normal) UCOL Yellow (Normal) 3-Tel-304345:43 BILAT SCRN DIGITAL & CAD Radiology Report [...] Cutler M.D.January 23, 2013 at 12:21:32 PM [id number] Signed GP/GP If you are the referring physician and would like to consult with theradiologist who provided this interpretation, please contact Letty Mukherjee at [phone]. If this radiologist is unavailable, youwill be directed to another radiologist to as sist. If you are a patient with a question regarding this report, pleasecontactyour referring physician directly. Professional Interpretation Provided By: Tamie, Phone ,Fax These documents contain legally protected [...] destructionofthese documents. Dictated on 01/23/13 1143 by Alec MCKAY,Giselaranscribed on 01/24/131711 by ITS IMPORTSign by Kvng Cutler MD on 01/24/131712 Sign by: Kvng Cutler MD 90-Txv-60744:57 ABDOMEN/PELVIS WITH CONTRAST Radiology Report See Note [...] narrowing at the L4, L5, and L5, B1bfbgdf. IMPRESSION:Sigmoid diverticulosis. Signed:Kvng Cutler M.D.September 01, 2012 at 1:13:05 PM [id number] [phone] Signed GP/GP If you are the referring physician and would like to consult with theradiologist who provided this interpretation, please contact Letty Mukherjee at . If this radiologist is unavailable, youwill be directed to another radiologist to assist. If you are a patient with a question regarding this report, pleasecontactyour referring physician directly . Professional Interpretation Provided By: [employer], Phone , These documents contain legally protected [...] 09/01/12 1323 Sign by: Kvng Cutler MD 48-Osu-832623:53 CRE GFRAA 109 mL/min (Normal) GFR 90 mL/min (Normal) CREAT 0.7 mg/dL (Normal) Range: 0.6-1.0 15-Lam-710315:41 KNEE,4 OR MORE VIEWS Radiology Report See [...] regarding t his report, please call our 03F4igcurfh line @ Dictated on 01/31/12 1436 by Gisela Cutler MDranscribed on 02/01/12 1327 by ITS IMPORTSign by Kvng Cutler MD on 02/01/12 13 28 Sign by: Kvng Cutler MD 6-Skr-322862:36 CULTURE, URINE URINE CULTURE See Note {CFU/mL} (Normal) Comments: COLONY COUNT 25,000-50,000 ORGANISM 1: MIXED GRAM POSITIVE ORGANISMS :17 Urinalysis, Office (55546) UA - BILIRUBIN Negative (Normal) UA - [...] :34 TSH 3.22 {uIU/mL} (Normal) Range: 0.358-3.74 36-Thz-300673:23 URINE KVNG CULTURE-IDENTIFICATN Comments: PATIENT NOT FASTINGPERFORMED BY: [facility] Rxbkei[address]UNC [facility] [id number] Information: [id number] (69126) Antimicrobial MIHEAD (Normal) Comments: S = Susceptible; [...] primarily for treating urinary tract infections. (CLSI, W131-O43,2009) Result 1 Klebsiella pneumoniae Comments: 3,000 Colonies/mL . (Normal) Urine Final report (Normal) Culture,Comprehensive :52 Urinalysis, Office (46787) UA - BILIRUBIN Negative (Normal) UA - BLOOD Negative (Normal) UA - GLUCOSE Negative (Normal) UA - KETONES Negative mg/dL (Normal) UA - LEUKOCYTE ESTERASE Small (Normal) UA - NITRITE Negative (Normal) UA - PH 5.0 (Normal) UA - PROTEIN Negative mg/dL (Normal) UA - SPECIFIC GRAVITY 1.015 (Normal) URINE UROBILINGN HE TIMED Normal mg/dL (Normal) 3-Ewa-704661:44 TRANSVAGINAL NON- Radiology Report See Note (Normal) Comments: Exam Number: [id number] LINICAL:This is a 60-year-old female patient with [...] ovaries were not visualized. Reported By: KVNG UCTLER 5-Rat-315790:24 PELVIC (NON ) Radiology Report See Note (Normal) Comments: Exam Number: [id number] LINICAL:This is a 60-year-old female patient with [...] were not visualized. Reported By: KVNG CUTLER 05-Xuv-468488:53 URINE KVNG CULTURE-HE COL Comments: PATIENT NOT FASTINGPERFORMED BY: LUIS [facility] [address] [facility] [id number] Information: SRC:URT [id number] COUNT (08451) Result 3 BETAGB (Normal) Comments: Beta hemolytic Streptococcus, group B2,000 Colonies/mLPenicillin continues to be the drug of choice for infectionscaused by beta hemolytic streptococci in groups A,B,C and G.No penicillin resistance has been described among theseorganisms and surveillance for emerging resistance is notrecommended. (KARLOS Thompson. Clinical Microbiology Newsletter,1993; RAYMOND Estrella et al. [...] primarily for treating urinary tract infections. (CLSI, K422-W66,2009) Result 2 Klebsiella pneumoniae Comments: 100 Colonies/mL . (Normal) Urine Final report (Normal) Culture,Edna rankin 25-Ftf-55860:50 Urinalysis, Office (85361) UA - LEUKOCYTE ESTERASE Trace (Normal) UA - NITRITE Negative (Normal) URINE UROBILINGN HE TIMED Normal mg/dL (Normal) UA - PROTEIN Negative mg/dL (Normal) UA - PH 5.0 (Normal) UA - BLOOD Non Hemolyzed Trace (Normal) UA - SPECIFIC GRAVITY 1.010 (Normal) UA - KETONES Negative mg/dL (Normal) UA - BILIRUBIN Negative (Normal) UA - GLUCOSE Negative (Normal) 2-Nac-111589:00 Urinalysis, Office (97257) UA - LEUKOCYTE ESTERASE Trace (Normal) UA [...] Comments: GLU,2HPPG 75gm GLUC PPG GLUP from 0902:W03956X. :34 CBC, EMPLOYEE [facility] 34.4 g/dL (Normal) [...] CHOL 283 mg/dL (Abnormal) Comments: <200 mg/dL Eaktdlhgn018-808 mg/dL Borderline>240 mg/dL High Risk HDL 53 [...] Report See Note (Normal) Comments: Exam Number: [id number] CLINICAL:This is a 60-year-old female patient with [...] of the thyroid. Reported By: KVNG CUTLER 03-Hvi-84356:10 COLON BX P-COLBX (Normal) Comments: OPERATIONColonoscopy with [...] cassette. / LONG:chris 03/19/10TC:4REPORT SIGNED: SHREE WEINSTEIN 03/20/1010-Feb-201082-Vls-492688:08 KNEE,4 OR MORE VIEWS (MT) Radiology Report See Note (Normal) Comments: Exam Number: [id number] CLINICAL:Pain X-RAY EXAMINATION LEFT KNEE TECHNIQUE:Four views of the knee. COMPARISON:None. FINDINGS:Normal visualized distal femur. Normal visualized proximal tibia. Normal visu alized proximal fibula. There is minimal narrowing of the medial femorotibial compartment.Normal lateral femorotibial compartment. Normal patellofemoral articulation. There is no demonstrated jointeffu tamia. There is no demonstrated soft tissue swelling. IMPRESSION:Chronic degenerative changes, as discussed above. Reported By: SURINDER WOODRUFF 63-Uxu-515902:00 SPINE, LUMBAR W/W/O CONTRAST Radiology Report See Note (Normal) Comments: Exam Number: [id number] CLINICAL:59-year-old female with displaced lumbar disk low [...] Reported By: LANDY HIGHTOWER M.D. :03 TRAN-D 875431 TRAN-DIRECT SeeNote (Normal) Comments: Result: Negative Performed At: [facility] [address] [id number] At: [facility] [address]hsyus[address] [place], [place] [id number] :03 ANTI-CCP 974232 6 {units} (Normal) Range: 0-19 Comments: Negative [...] 2.6-6.0 VLDL 30 mg/dL (Normal) Range: 5-40 20-Abe-84274:41 EMP URINALYSIS BILIRUBIN URINE SeeNote (Normal) Comments: [...] Report See Note (Normal) Comments: Exam Number: [id number] BILATERAL SCREENING MAMMOGRAM COMPARISONComparison is made to [...] The mammogramswere also examined with computer-aided detection software(Motomotives.). Reported By: CHUCK PEREZ M.D. 97-Hou-689855:46 SHOULDER,MIN 2 VIEWS Radiology Report See Note (Normal) Comments: Exam Number: [id number] RIGHT SHOULDER HISTORYShoulder pain. TECHNIQUEFour views of [...] normal variant. Reported By: LUIS JORGE M.D. 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 Endocervical and/or squamous metaplasticcells (endocervical component) are present. COMM . (Normal) DIAGN Comment (Normal) Comments: NEGATIVE FOR INTRAEPITHELIAL LESION AND MALIGNANCY. HPV RFLX Comment (Normal) Comments: The HPV DNA reflex criteria were not met with this specimenresult therefore, no HPV testing was performed. .Performed At: [facility] [address] [place], [place] [id number] PAPSMR Comment (Normal) Comments: The Pap smear is a screening test designed to aid in thedetection of pre-malignant and malignant conditions of theuterine cervix. It is not a diagnostic procedure andshould not be used as the sole mean s of detecting cervicalcancer. Both false-positive and false-negative reports dooccur. . 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 Plan of Care Name Dates Details Instructions Hypertensive heart disease without congestive heart failure : BP MONITORING - SELF Indication: Hypertensive heart disease without congestive heart failure Hypertensive heart disease without congestive heart failure : Reviewed Lab Indication: Hypertensive heart disease without congestive heart failure Hypertensive heart disease without congestive heart failure : Reviewed Senior Research Fellow Letter Indication: Hypertensive heart disease without congestive heart [...] Diagnostic Tests Indication: Headache Headache : Reviewed Senior Research Fellow Letter Indication: Headache Hypertensive heart disease without [...] Indication: Epigastric pain Epigastric pain : Reviewed Senior Research Fellow Letter Indication: Epigastric pain Epigastric pain : [...] reflux disease) Planned Observations Metabolic Panel, Basic (35908)Indication: Therapeutic drug monitoring On: 65-Wwd-36383:13 Request Comments: give to jud to review HEPATIC FUNCTION PANEL (83168)Indication: Common bile duct dilation On: 55-Rwg-842493:18 Request HEPATIC FUNCTION PANEL (47301)Indication: Epigastric pain On: 53-Jrw-690294:51 Request LIPID PANEL (17822)Indication: Hypercholesteremia On: 77-Cbg-666797:25 Request TSH (94860)Indication: Abnormal TSH On: : Request T4, FREE (THYROXINE) (19733)Indication: Abnormal TSH On: : Request T3, FREE (TRIDOTHYRONINE) (09381)Indication: Abnormal TSH On: : Request TSH (46447)Indication: Hypercholesteremia On: :14 Request URINALYSIS, W/ MICRO (52642)Indication: Hypertensive heart disease without congestive heart failure On: :14 Request MICROALBUMIN: CREATININE RATIO (23385) AND (07145)Indication: Hypertensive heart disease without congestive heart failure On: :14 Request METABOLIC PANEL, COMPREHENSIVE (82362)Indication: Hypertensive heart disease without congestive heart failure On: :14 Request LIPID PANEL (32846)Indication: Hypercholesteremia On: :14 Request CBC W/AUTO DIFF WBC (60282)Indication: Hypertensive heart disease without congestive heart failure On: :14 Request Cryptosporidium Sp Ag, Direct Fluorescent Ab (28595)Indication: Diarrhea On: :44 Request GIARDIA LAMBLIA ANTIBODY (92076)Indication: Diarrhea On: :43 Request C-DIFFICILE, STOOL (75027)Indication: Diarrhea On: :43 Request OVA & PARASITE DIR SMEAR (85730)Indication: Diarrhea On: :43 Request OCCULT BLOOD FECES SCREEN (03138)Indication: Diarrhea On: :43 Request LEUKOCYTE COUNT, FECAL (44296)Indication: Diarrhea On: :43 Request KVNG CULTURE-STOOL (63750)Indication: Diarrhea On: :43 Request FECAL OCCULT HGB ASSAY- tubes sent home (46024)Indication: Encounter for Medicare annual wellness exam On: :28 Request TSH (07410)Indication: Hypertensive heart disease without congestive heart failure On: 56-Yth-730338:27 Request URINALYSIS, W/ MICRO (85227)Indication: Hypertensive heart disease without congestive heart failure On: 01-Orf-650602:27 Request MICROALBUMIN: CREATININE RATIO (53612) AND (58913)Indication: Hypertensive heart disease without congestive heart failure On: 08-Tip-353399:27 Request METABOLIC PANEL, COMPREHENSIVE (67914)Indication: Hypertensive heart disease without congestive heart failure On: 20-Kpk-392388:27 Request CBC WITH MANUAL DIFF (63538)Indication: Hypertensive heart disease without congestive heart failure On: 75-Bhs-438028:27 Request LIPID PANEL (62683)Indication: Hypercholesteremia On: 05-Feb-2014 Request URINE KVNG CULTURE-HE COL COUNT (49240)Indication: Urinary frequency On: :17 Request Magnesium (72392)Indication: Hypopotassemia On: 88-Kcq-035139:50 Request Metabolic Panel, Basic (23684)Indication: Hypopotassemia On: :49 Request TSH (54457)Indication: Hypercholesteremia On: :09 Request URINALYSIS, W/ MICRO (40320)Indication: Hypertensive heart disease without congestive heart failure On: :09 Request MICROALBUMIN: CREATININE RATIO (98079) AND (53524)Indication: Hypertensive heart disease without congestive heart failure On: :09 Request METABOLIC PANEL, COMPREHENSIVE (77413)Indication: Hypertensive heart disease without congestive heart failure On: :09 Request LIPID PANEL (29606)Indication: Hypercholesteremia On: :09 Request CBC WITH MANUAL DIFF (26477)Indication: Hypertensive heart disease without congestive heart failure On: :09 Request URINE KVNG CULTURE-HE COL COUNT (36609)Indication: Dysuria On: 9-Qhn-886027:00 Request Glucose, PP/2 Hour (71443)Indication: Other specified abnormal findings of blood chemistry On: :21 Request HEPATIC FUNCTION PANEL (79021)Indication: Hypercholesteremia On: :57 Request LIPID PANEL (24457)Indication: Hypercholesteremia On: :57 Request Comments: DO IN 3 MONTHS Glucose, PP/2 Hour (88617)Indication: Other specified abnormal findings of blood chemistry On: :57 Request TRAN (ANTINUCLEAR ANTIBODY) (77955)Indication: Pain in unspecified joint On: Request C-REACTIVE PROTEIN (35521)Indication: Pain in unspecified joint On: Request CBC WITH MANUAL DIFF (98578)Indication: Pain in unspecified joint On: Request CCP ANTIBODY (53288)Indication: Pain in unspecified joint On: Request METABOLIC PANEL, COMPREHENSIVE (05396)Indication: Pain in unspecified joint On: Request RHEUMATOID FACTOR-QUANT (69708)Indication: Pain in unspecified joint On: Request SED RATE ERYTHROCYTE (75094)Indication: Pain in unspecified joint On: Request TSH (72146)Indication: Pain in unspecified joint On: Request FECAL OCCULT- Tubes sent home (65715)Indication: Benign essential hypertension On: Request TSH (74055)Indication: Benign essential hypertension On: : Request URINALYSIS W/O MICRO (45254)Indication: Benign essential hypertension On: : Request MICROALBUMIN: CREATININE RATIO (72021) AND (64846)Indication: Benign essential hypertension On: :09 Request METABOLIC PANEL, COMPREHENSIVE (04266)Indication: Benign essential hypertension On: : Request LIPID PANEL (55720)Indication: Benign essential hypertension On: Request CBC WITH MANUAL DIFF (67793)Indication: Benign essential hypertension On: : Request HEPATIC FUNCTION PANEL (38894)Indication: Hypercholesteremia On: 5-Qpt-872805:56 Request Comments: DO IN 3 MONTHS LIPID PANEL (81985)Indication: Hypercholesteremia On: 9-Jua-896558:56 Request URINALYSIS W/O MICRO (63151)Indication: Hypertension On: :51 Request TSH (46176)Indication: Hypertension On: :51 Request MICROALBUMIN URINE QUANT (84291)Indication: Hypertension On: :51 Request METABOLIC PANEL, COMPREHENSIVE (06052)Indication: Hypertension On: :50 Request LIPID PANEL (37057)Indication: Hypertension On: :50 Request CBC WITH MANUAL DIFF (11258)Indication: Hypertension On: :50 Request Planned Procedures Nuclear Stress Test/Stress On: 25-Sep-2018 Intent SPECT/AdenosineBy: Jessica Corona DO, DO, Kathleen Renal Duplex ScanBy: Chloe SCHROEDER, On: 13-Sep-2018 Intent Jessica Proctor DO Ultrasound - RenalBy: Chloe SCHROEDER, On: 13-Sep-2018 Intent Jessica Proctor DO X-RAY OF ABDOMEN, FLAT PLATE AND ERECT On: 21-Jun-2018 Intent (14254)By: Jud Samaniego CNP X-RAY OF CERVICAL SPINE, TWO VIEWS On: 02-Jun-2018 Intent (75371)By: Jessica Corona DO, DO, Kathleen Radiology - Lumbar SpineBy: Mohamud On: 25-May-2018 Intent Addie ELECTROCARDIOGRAM, COMPLETE (ECG) On: 04-May-2018 Intent ([id number])By: Jessica Corona DO Comments: nsr / no acute chg - pvc present and IVCD DOJessica ZRND-NO-VMQI BEHAVIORAL COUNSELING FOR On: 28-Apr-2018 Intent OBESITY, 15 MINUTES ([id number])By: Jessica Corona DO, DO, Kathleen DEXA SCAN AXIAL SKELETON ([id number])By: On: 28-Apr-2018 Intent Jessica Corona DO, DO, Kathleen MRCP (MAGNETIC RESONANCE On: 06-Feb-2018 Intent CHOLANGIOPANCREATOGRAPHY) ([id number])By: Jessica Corona DO, DO, Kathleen ULTRASOUND OF UPPER ABDOMEN ([id number])By: On: 27-Jan-2018 Intent Jessica Corona DO, DO, Kathleen Comments: attention size of CBD SCREENING DIGITAL TOMOSYNTHESIS OF On: 09-Jan-2018 Intent BREAST ([id number])By: Addie Odell LPN ELECTROCARDIOGRAM, COMPLETE (ECG) On: 03-Aug-2017 Intent ([id number])By: Jessica Corona DO Comments: sinus vinicio no new acute chg DO, Jessica MAMMOGRAM BREAST BILATERAL SCREENING On: 03-Jul-2015 Intent DIGITAL ([id number])By: Jessica Corona DO, DO, Kathleen Radiology - ChestBy: Danette SPRINGER Mildred On: 26-May-2015 Intent Aerosol Treatment ([id number])By: Danette SPRINGER, On: 26-May-2015 Intent Mildred Aerosol Treatment ([id number])By: Froylan KENT, On: 05-May-2015 Intent Sandy Radiology - Lumbar SpineBy: Danette SPRINGER, On: 15-Apr-2015 Intent Mildred Toradol Injection, 30 mg ([id number])By: On: 11-Apr-2015 Intent Jud Samaniego CNP ADMINISTRATION OF PNEUMOCOCCAL VACCINE On: 10-Jun-2014 Intent ([id number])By: Jessica Corona DO, DO, Kathleen PNEUM VAC ADLT/IMUMNOSPR, SBC/INTRM On: 10-Jun-2014 Intent ([id number])By: Jessica Corona DO Comments: lot: [id number]: 03/22/15site/route: L del/IMamt: 0.5mLVIS signed when applicableChelsJULIEN baird DO, Kathleen UETT-XB-WMLY BEHAVIORAL COUNSELING FOR On: 10-Jun-2014 Intent OBESITY, 15 MINUTES ([id number])By: Jessica Corona DO, DO, Kathleen BILATERAL MAMMOGRAMS ([id number])By: Chloe On: 04-Jun-2014 Intent Jessica SCHROEDER DO, Kathleen EKG ([id number])By: Jessica Corona DO On: 04-Feb-2014 Intent Jessica Corona DO Comments: nsr no acute cg Eprescribed prescriptions ([id number])By: On: 16-Nov-2013 Intent Jessica Corona DO, DO, Kathleen gastric emptying studyBy: Chloe SCHROEDER, On: 10-Oct-2013 Intent Jessica Proctor DO FLU VAC, SPLIT, >3 YEARS, INTRAMUSC On: 06-Sep-2013 Intent ([id number])By: Addie Odell LPN Comments: Lot:[id number]:6.14Amt:0.5mlRoute:IMSite: L DltdGiven By: DONTE FontenotVIS signed ADMINISTRATION OF INFLUENZA VIRUS On: 06-Sep-2013 Intent VACCINE ([id number])By: Addie Odell LPN EKG ([id number])By: Jessica Corona DO On: 26-Mar-2013 Intent Jessica Corona DO Comments: nsr no acute ischemic changes/ borderline LVH Eprescribed prescriptions ([id number])By: On: 26-Mar-2013 Intent Shaye Goldsmithsea Eprescribed prescriptions ([id number])By: On: 23-Feb-2013 Intent Viola Goldsmith MAMMOGRAM, SCREENING, BOTH BREASTS On: 19-Jan-2013 Intent ([id number])By: Jessica Corona DO, DO, Kathleen CT - Abdomen & Pelvis (IV Contrast On: 28-Aug-2012 Intent Needed)By: Jessica Corona DO, DO, Kathleen Eprescribed prescriptions ([id number])By: On: 28-Aug-2012 Intent Addie Odell LPN DRAIN/INJECT, JOINT/BURSA ([id number])By: On: 25-Feb-2012 Intent Jessica Corona DO, DO, Kathleen Comments: inject 2 cc marcaine 1 cc kenolog Radiology - Knee - RightBy: Chloe SCHROEDER, On: 31-Jan-2012 Intent Jessica Proctor DO Eprescribed prescriptions ([id number])By: On: 25-Oct-2011 Jessica Lemus DO, DO, Kathleen TDAP VACCINE >7 IM ([id number])By: Chloe On: 02-Jul-2011 Jessica Mauricio DO, DO, Kathleen Comments: 0.5cc given im rt dltd lot [id number] exp 08-11-13 EKG ([id number])By: Jessica Corona DO On: 01-Feb-2011 Intent Jessica Corona DO Comments: nsr no acute changes-- borderline LVH -- but seen on echo best [facility] ([id number])By: Jessica Corona DO On: 01-Feb-2011 Intent Jessica [...] LeftBy: Chloe SCHROEDER, On: 10-Feb-2010 Intent Jessica Prcotor DO MRI - Lumbar SpineBy: Chloe SCHROEDER, On: 18-Aug-2009 Intent Jessica Proctor DO EKG ([id number])By: Jessica Corona DO On: 18-Aug-2009 Intent Jessica Corona DO Comments: nsr no acute changes Pulse Oximetry ([id number])By: Chloe SCHROEDER, On: 05-Mar-2009 Intent Jessica Proctor DO Comments: 93% RA Aerosol Treatment ([id number])By: Chloe SCHROEDER, On: 05-Mar-2009 Intent Jessica Proctor DO Comments: better air exchange no wheeze Solu- Medrol Injection, 125mg On: 05-Mar-2009 Intent ([id number])By: Jessica Corona DO Comments: injection given in left glutues alvarado. Pt tolerated well. [id number] Jessica SCHROEDER EKG ([id number])By: Jessica Corona DO On: 25-Feb-2008 Intent Jessica [...] MG Ordered: 11-Apr-2015 Pending Jud Samaniego CNP Name Dates Details Non-smoker : How to [...] failure Hypercholesteremia : DISCONTINUED - LIPID PANEL ([id number]) Indication: Hypercholesteremia Hypercholesteremia : DISCONTINUED - TSH ([id number]) Indication: Hypercholesteremia Hypertensive heart disease without congestive heart failure : DISCONTINUED - URINALYSIS, W/ MICRO ([id number]) Indication: Hypertensive heart disease without congestive heart failure Hypertensive heart disease without congestive heart failure : DISCONTINUED - MICROALBUMIN: CREATININE RATIO (54950) AND ([id number]) Indication: Hypertensive heart disease without congestive heart failure Hypertensive heart disease without congestive heart failure : DISCONTINUED - METABOLIC PANEL, COMPREHENSIVE ([id number]) Indication: Hypertensive heart disease without congestive heart failure Hypertensive heart disease without congestive heart failure : DISCONTINUED - CBC WITH MANUAL DIFF ([id number]) Indication: Hypertensive heart disease without congestive heart failure Irritable Bowel Syndrome : Patient Instructions Indication: Irritable Bowel Syndrome Abdominal pain, acute, left lower quadrant : Patient Instructions Indication: Abdominal pain, acute, left lower quadrant Abdominal pain, acute, left lower quadrant : Patient Instructions Indication: Abdominal pain, acute, left lower quadrant Encounters Review On: 06-Nov-2018 11:44 Encounter Reason: HypertensionEncounter Diagnosis: BMI 33.0-33.9,adult, Non-smoker, Nausea, Right upper quadrant pain, Chronic scapular pain, Hypertensive heart disease without congestive heart failure, Dilated cbd, acquired, Positional lightheadedness [facility] Office Visit On: 10-Oct-2018 13:18 Encounter Reason: [...] are helping. Going on a trip next week-[facility] bus trip.Encounter Diagnosis: Non-smoker, BMI 35.0-35.9,adult, [...] patient does not have durable power of workers compensation attorney or living will. The patient has [...] issues the patient is following up for tod lala All identified problems below, gastric reflux, high [...] patient does not have durable power of workers compensation attorney or living will. The patient has [...] Medicine End: 06-Sep-2006 14:06 Payers MedicareHumana/Supplement Francy Tobar; shubham guarantor
--- OUTSIDE RECORDS SUMMARY | 2018-12-17 17:10 | XMS RPT_ITS | Continuity of Care Document ---
:1950 Author Organization [facility] Address [address] [place] [address] Phone Care Team Providers Name Role Phone Jessica Corona DO Unavailable Marcy Allen Unavailable Huber MCKAY, Dr. Benitez Unavailable [facility] Unavailable DONTE Odell Unavailable Unavailable Emily Polk [...] of colon) (Z12.11, V76.51) Comments: scope 2017- [facility] 2103 Status: Active Common bile duct [...] days Quantity: 30 {Tablet} Refills: 3 Ordered:25-Sep-2018 Chole SCHROEDERMayte DO, Kathleen Start : 25-Sep-2018 Active [...] Quantity: 10 {Tablet} Refills: 0 Ordered:04-Oct-2018 Chloe CSHROEDERMayte DO, Kathleen Start : 04-Oct-2018 Active TiZANidine [...] Start : 25-May-2018 End : 28-May-2018 Inactive Comments:WBHKVAamhqgdy-214Qwrqaong-740Sbqwipnei-000OD Zkrx-992HT-Yilegneq of Right Side (M54.31)#Three CELEBREX, 200MG (Oral [...] Stress Report Result: Comments: See Note; NOTES: [facility] Cardiovascular Services [address] [place] [address] MR#: [id number] Acct: [id number] Name: NEISHA TOBAR Rep #: [id number] : 68 From: Baron Gonzalez MD Primary [...] DO Date Dictated: 10/02/181447 Date Transcribed: 10/02/181447 Overlock Sewing Machine Operator: CO Signed 28-Sep-2018 Inital Evaluation (1) - PT Result: Comments: See Note; NOTES: [facility] Physical Therapy Health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 HTN. GERD. 2005 [...] Observations: INDEP GAIT AND TRANSFERS. 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 TOMI UE'S WFL. Sensory deficit: NO. ROM deficit: TOMI UE'S WFL WITH SLIGHT DEFICIT OF LEFT SHOULDER ROM AND STRENGTH COMPARED TO RIGHT. Reflexes: 2/2 TOMI UE'S. Dural Signs: NEGATIVE TOMI UE'S. Cervical Mvmt Loss: Flex: NIL. Pro: NIL. Ext: MOD. Ret: MOD TO REHANA. RSB: MIN. LSB: NV N. R Rot: MIN. L Rot: MIN. [...] to be FAXED BACK to us at [phone] for Medicare purposes. Please let me know if there are questions or concerns re garding this plan of care. Physician Signature: Date: <Electronically signed by Maliha Rudolph PT, Cert. MDT> 09/28/18 1313 CC: Jessica Corona DO NAZANIN Signed For Medicare only, by signing this I certify the plan of care. Physicians Signature Date 24-Sep-2018 Renal Artery Duplex Result: Comments: See Note; NOTES: [facility] Cardiovascular Services [address] [place] [address] Renal Artery Duplex Ultrasound 09/22/18 0802 MR#: [id number] Acct: [id number] Name: NEISHA TOBAR Rep #: [id number] : 1950 68 From: Ciro Maravilla MD Attending Dr: Jessica Corona DO Status: REG CLI Ordering Dr: Jessica Corona DO Date: 09/22/18 Location: [facility] Sex: F C Admitt ed: Reason [...] Dictated: 09/22/18 0802 Date Transcribed: 09/24/18 1013 Overlock Sewing Machine Operator: Signed 18-Sep-2018 Kidney and Bladder Result: Comments: See Note; NOTES: [facility] Imaging Services [address] [place] [address] Kidney and Bladder MR#: [id number] Acct: [id number] Name: NEISHA TOBAR Rep #: [id number] : 1950 F 68 From: Jorge Holland MD PCP: Jessica Corona DO Status: REG CLI Study: Kidney and Bladder Date of Exam: 09/18/18 Exam# [id number] Ordering Dr: Jessica Corona DO STUDY: RENAL [...] Service support , CC: Jessica Corona DO Overlock Sewing Machine Operator: Signed 12-Sep-2018 12 Lead Electrocardiogram Result: Comments: See Note; NOTES: [facility] Cardiovascular Services [address] [place] [address] 12 Lead EKG 09/09/18 0949 MR#: [id number] Acct: [id number] Name: NEISHA TOBAR Shubham Mathews #: [id number] : 1950 68 From: Ian Gudino MD [...] Abnormal ECG Confirmed by TERESE MCKAY, IAN ([id number]), science editor CHARITY VILLEGAS ([id number]) on 09/12/2018 11:06:08 AM Referred By: Devora Corona Confirmed By:IAN GUDINO MD 09/12/18 1106 Date Ian Gudino MD CC: Anel Hunter MD; Jessica Corona DO Signed 09-Sep-2018 Emergency Department Summary Result: Comments: See Note; NOTES: [facility] Medical Records Department [address] [place] [address] Emergency Department Summary 09/09/18 0934 MR#: [id number] Acct: [id number] Name: NEISHA TOBAR Rep #: [id number] : 1950 68 From: Anel Hunter MD [...] Hypertension, improved This note was generated with [employer] dictation software. It may contain incorrect words, [...] problems, contact your Primary Care Provider. Call [facility] ([phone]) or [facility] Call 911 if necessary. 09/09/18 1633 <Electronically signed by Anel Hunter MD> Date Anel Hunter MD Cos igner Signature (If Indicated): Date CC: Jessica Corona DO 09-Sep-2018 Discharge Instruction Result: Comments: See Note; NOTES: [facility] Medical Records Department [address] [place], [place] [address] [address] Discharge Instruction 09/09/18 1203 MR#: [id number] Acct: [id number] Name: Lydia TOBAR Rep #: [id number] : 1950 68 From: Anel Hunter MD [...] your Primary Care Provider. Call [facility] ([phone]) or report to the closest Emergency Room. Call 911 if necessary. 09/09/18 1207 < Electronically signed by Anel Hunter MD> Date Anel Hunter MD Cosigner Signature (If Indicated): Date CC: Jessica Corona DO 09-Sep-2018 Brain/Head without Contrast Result: Comments: See Note; NOTES: [facility] Imaging Services [address] [place] [address] Brain/Head without Contrast MR#: [id number] Acct: [id number] Name: NEISHA TOBAR Rep #: [id number] : 1950 F 68 From: Italo Brown DO PCP: Jessica Corona DO Status: REG ER Study: Brain/Head without Contrast Date of Exam: 09/09/18 Exam# [id number] Ordering Dr: Anel Hunter MD ST UDY: [...] CC: Anel Hunter MD; Jessica Corona DO Overlock Sewing Machine Operator: Signed 21-Jun-2018 Abd Inc Decub and/or Erect Result: Comments: See Note; NOTES: [facility] Imaging Services [address] [place] [address] Abd Inc Decub and/or Erect MR#: [id number] Acct: [id number] Name: NEISHA TOBAR Rep #: [id number] : 1950 F 68 From: Tapan Gore MD PCP: Jessica Corona DO Status: REG CLI Study: Abd Inc Decub and/or Erect Date of Exam: 06/21/18 Exam# [id number] Ordering Dr: Jud Samaniego Y: X-RAY - [...] , Service support , CC: Jud Samaniego PROGRAM SUPPORT ASSISTANT; Jessica Corona DO Overlock Sewing Machine Operator: Signed 02-Jun-2018 Cerv Spine 2 or 3 Views Result: Comments: See Note; NOTES: [facility] Imaging Services [address] [place] [address] Cerv Spine 2 or 3 Views MR#: [id number] Acct: [id number] Name: NEISHA TOBAR Shubham Rep #: [id number] : 1950 F 68 From: Jamil Paulson MD PCP: Jessica Corona DO Status: REG CLI Study: Cerv Spine 2 or 3 Views Date of Exam: 06/02/18 Exam# [id number] Ordering Dr: Jessica Corona DO ST UDY: [...] Service support , CC: Jessica Corona DO Overlock Sewing Machine Operator: Signed 25-May-2018 L/S Spine Min 4 Views Result: Comments: See Note; NOTES: [facility] Imaging Services [address] [place] [address] L/S Spine Min 4 Views MR#: [id number] Acct: [id number] Name: NEISHA TOBAR Rep #: [id number] : 1950 F 68 From: Mikayla Guerrier MD PCP: Jessica Corona DO Status: REG CLI Study: L/S Spine Min 4 Views Date of Exam: 05/25/18 Exam# [id number] Ordering Dr: Addie Mallory PROGRAM SUPPORT ASSISTANT-C STUDY: X -RAY - LUMBAR SPINE REASON [...] , CC: DEYSI Mallory; Jessica Corona DO Overlock Sewing Machine Operator: Signed 09-May-2018 Dexa Bone Density Study Result: Comments: See Note; NOTES: [facility] Imaging Services [address] [place] [address] Dexa Bone Density Study MR#: [id number] Acct: [id number] Name: NEISHA TOBAR Rep #: [id number] : 1950 F 68 From: Kvng Cutler MD PCP: Jessica Corona DO Status: [facility] CLI Study: Dexa Bone Density Study Date of Exam: 05/09/18 Exam# [id number] Ordering Dr: Jessica Corona DO STUDY: DUAL [...] Kvng Cutler MD at 8:25 EDT Tel [phone], Service support , CC: Jessica Corona DO Overlock Sewing Machine Operator: Signed 14-Feb-2018 MRCP Abdomen without Contrast Result: Comments: See Note; NOTES: [facility] Imaging Services [address] [place] [address] MRCP Abdomen without Contrast MR#: [id number] Acct: [id number] Name: NEISHA TOBAR Rep #: [id number] : 1950 F 68 From: Vj Rajput MD PCP: Jessica Corona DO Status: REG CLI Study: MRCP Abdomen without Contrast Date of Exam: 02/14/18 Exam# [id number] Ordering Dr: Rigo Corona DO STUDY: MR [...] Service support , CC: Jessica Corona DO Overlock Sewing Machine Operator: Signed 03-Feb-2018 Abdomen Limited Result: Comments: See Note; NOTES: [facility] Imaging Services [address] [place] [address] Abdomen Limited MR#: [id number] Acct: [id number] Name: NEISHA TOBAR Rep #: [id number] OB: 1950 F 68 From: Kvng Cutler MD PCP: Jessica Corona DO Status: REG CLI Study: Abdomen Limited Date of Exam: 02/03/18 Exam# [id number] Ordering Dr: Jessica Corona DO STUDY: ABDOMINAL [...] Kvng Cutler MD at 13:52 EDT Tel [phone], Service support , CC: Jessica Corona DO Overlock Sewing Machine Operator: Signed 31-Jan-2018 SCREENING MAMM (CAD), BILAT Result: Comments: See Note; NOTES: [facility] Imaging Services [address] [place] [address] SCREENING MAMM (CAD), BILAT MR#: [id number] Acct: [id number] Name: NEISHA TOBAR Rep #: [id number] : 1950 F 67 From: Kvng Cutler MD PCP: Jessica Corona DO Status: [facility] CLI Study: SCREENING MAMM (CAD), BILAT Date of Exam: 01/31/18 Exam# [id number] Ordering Dr: Lidia Corona DO MAMMOGRAPHY - [...] delay biopsy of a clinically suspicious abnormality. [id number] Electronically Signed: Kvng Cutler MD at 14:26 EDT Tel [phone], Service supp ort , CC: Jessica Corona DO Overlock Sewing Machine Operator: Signed 28-Aug-2015 Bilat Scrn Digital AND CAD Result: Comments: See Note; NOTES: [facility] Imaging Services [address] [place] [address] Breast Imaging Report MR#: [id number] Acct: [id number] Name: NEISHA TOBAR Rep # : [id number] : 1950 F 65 From: Kvng Cutler MD PCP: Jessica Corona DO Status: REG CLI Study: Bilat Scrn Digital AND CAD Date of Exam: 08/28/15 Exam# [id number] Ordering Dr: Raymond Corona DO MAMMOGRAPHY - [...] be sent to the patient by the [facility] within 30 days. Approximately 10% of breast cancers are not detected by mammography. A normal mammogram should not delay biopsy of a clinically suspicious abnormality. Electronically Mirian d: Kvng Cutler MD at 8:05 EDT Tel [phone], Service support [phone], CC: Jessica Corona DO Overlock Sewing Machine Operator: Signed 03-Jun-2015 PT Discharge Summary Result: Comments: See Note; NOTES: [facility] Physical Therapy [facility] [address] [place] [address]. [address] [place], [place] [address] Fax REHABILITATION SERVICES DISCHARGE SUMMARY MR#: [id number] Acct: [id number] Name: NEISHA TOBAR Rep #: [id number] : 1950 65 From: Sandy Nelson Referring [...] clinic. Sandy Nelson, PT T: NTS JOB: [id number] <Electronically signed by Sandy Nelson > 06/03/15 1726 CC: Signed 26-May-2015 Chest PA and Lateral Result: Comments: See Note; NOTES: [facility] Imaging Services [address] [place] [address] Radiology Report MR#: [id number] Acct: [id number] Name: NEISHA TOBAR Rep #: [id number] : 1950 F 65 From: Zoila Allen MD PCP: Jessica Corona DO Status: REG CLI Study: Chest PA and Lateral Date of Exam: 05/26/15 Exam# [id number] Ordering Dr: Jud Samaniego STUDY: X-RAY C [...] MD at 12:07 EDT , Service support [phone], RAD /Chest PA and Lateral IMPRESSION: There is a left midlung field calcified granuloma. There is bilateral lower lobe scarring/atelectasis. No radiographic evidence of bronchitis. Electronically Sig kyle: Zoila Allen MD at 12:07 EDT , Service support [phone], CC: Jud Samaniego; Jessica Corona DO Overlock Sewing Machine Operator: Signed 13-May-2015 Inital Evaluation - PT Result: Comments: See Note; NOTES: [facility] Physical Therapy [facility] [address] [place] [address] Fax REHABILITATION SERVICES INITIAL EVALUATION MR#: [id number] Acct: [id number] Name: NEISHA TOBAR Rep #: [id number] : 1950 65 From: Sandy Nelson Referring [...] needed. Sandy Nelson, PT T: NTS JOB: [id number] <Electronically signed by Sandy Nelson > 05/13/15 0818 CC: Signed For Medicare only, by signing this I certify the plan of care. Physicians Signature Date 16-Apr-2015 L/S Spine Min 4 Views Result: Comments: See Note; NOTES: [facility] Imaging Services [address] [place] [address] Radiology Report MR#: [id number] Acct: [id number] Name: ELIZABETNEISHA A Rep #: [id number] : 1950 F 65 From: Rod Pollard DO PCP: Jessica Corona DO Status: REG CLI Study: L/S Spine Min 4 Views Date of Exam: 04/16/15 Exam# [id number] Ordering Dr: Jud Samaniego STUDY: X-RA Y [...] Rod Pollard DO at 16:48 EDT Tel [phone], Service support [phone], RAD/L/S Spine Min 4 Views IMPRESSION: Degenerative ch anges of the spine, as detailed above. Electronically Signed: Rod Pollard DO at 16:48 EDT Tel [phone], Service support [phone], CC: Jud Corona DO Overlock Sewing Machine Operator: Signed 11-Jun-2014 Bilat Scrn Digital & CAD Result: Comments: See Note; NOTES: [facility] Imaging Services [address] [place] [address] Breast Imaging Report MR#: [id number] Acct: [id number] Name: NEISHA TOBAR Rep #: [id number] : 1950 F 64 From: Ian Lamas MD PCP: Jessica Corona DO Status: REG CLI Exam# [id number] Ordering Dr: Jessica Corona DO MAMMOGRAPHY - [...] 17:24 EDT Tel , Ser vice support [phone], CC: Jessica Corona DO Overlock Sewing Machine Operator: Signed 29-Oct-2013 Gastric Emptying Study Result: Comments: See Note; NOTES: [facility] Imaging Services [address] [place] [address] Nuclear Medicine Report MR#: [id number] Acct: [id number] Name: NEISHA TOBAR Rep #: [id number] : 1950 F 63 From: Celestine Garza DO PCP: Status: REG CLI Study: Gastric Emptying Study Date of Exam: 10/29/13 Exam# [id number] Ordering Dr: Jessica Corona DO CLINICAL: 63 [...] M.D. 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 but her last appt was in [place] and had a glaucoma test donehearing wml [...] 0.00 cm Results Date Description Value Details :17 Miscellaneous Lab Comments: Comments: [id number],SEP,REF,LAVTest(s) Ordered: [id number],SEP,REF,[facility] [address] [place], [place], [address] Procedure MISC Comments: TEST RESULT LIMITSMetanephrines, Frac., [...] metanephrines and plasma catecholamines. TESTING PERFORMED AT [facility]. ORIGINAL REPORT ON FILE IN LAB CONTAINS ADDITIONAL TEST SITE INFORMATION. :45 ALDOSTERONE (77902) Comments: PATIENT NOT FASTINGPERFORMED BY: [address] [id number] Aldosterone 19.6 ng/dL (Normal) Range: 0.0-30.0 Comments: This test was developed and its performance characteristicsdetermined by [facility]. It has not been cleared or approvedby the Food and Drug Administration. :45 RENIN (25579) Comments: PATIENT NOT FASTINGPERFORMED BY: [address] [id number] Renin Activity, Plasma 0.846 {ng/mL/hr} Range: 0.167-5.380 (Normal) Comments: This test was developed and its performance characteristicsdetermined by [facility]. It has not been cleared or approvedby the Food and Drug Administration. :00 METANEPHRINES - URINE (46375) Comments: PATIENT NOT FASTINGPERFORMED BY: [address] [id number] Metanephrine, U,24hr 84 {ug/24_hr} (Normal) Range: 45-290 Comments: (Hypertensive) >17 years 11 months: 35 - 460 Metanephrine, Ur 84 ug/L (Normal) Normetanephr.,U,24h 352 {ug/24_hr} (Normal) Range: 82-500 Comments: (Hypertensive) >17 years 11 months: 110 - 1050 Normetanephrine, Ur 352 ug/L (Normal) 35-Zbo-43252:00 CATECHOLAMINES TOTAL, URINE Comments: PATIENT NOT FASTINGPERFORMED BY: [address] [id number] Information: START 09/14/18 @5AM (53132) Dopamine, Ur, 24hr 155 {ug/24_hr} (Normal) Range: 0-510 Dopamine, Urine 155 ug/L (Normal) Comments: Verified by repeat analysis Norepinephrine,U,24h 52 {ug/24_hr} (Normal) Range: 0-135 Norepinephrine, Ur 52 ug/L (Normal) Comments: Verified by repeat analysis Epinephrine, U, 24hr 8 {ug/24_hr} (Normal) Range: 0-20 Epinephrine, Urine 8 ug/L (Normal) Comments: Verified by repeat analysis 34-Hjk-25250:00 URINE VMA (58247) Comments: PATIENT NOT FASTINGPERFORMED BY: [facility] [id number] VMA, Urine, 24hr 2.4 {mg/24_hr} (Normal) Range: 0.0-7.5 Comments: This test was developed and its performance characteristicsdetermined by [facility]. It has not been cleared or approvedby the Food and Drug Administration. VMA, Urine 2.4 mg/L (Normal) 70-Zkk-93859:38 Basic Metabolic Profile (BMP) Comments: [facility] [address] [place], [address] GAP 7 (Normal) Range: 5-15 CO2 27.0 [...] A.D.A. criteria.Please note revised GLUCOSE reference range qqesgetgc17/02/2018. 47-Csu-47005:38 CBC W/Diff, Automated Comments: [facility] [address] [place], [place], [phone] Absolute Lymph 1.21 {X10_3/ul} (Normal) Range: 0.83-4.51 [...] 4.2-5.4 WBC 5.8 K/mm3 (Normal) Range: 4.4-11.0 00-Nis-062438:49 Basic Metabolic Profile (BMP) Comments: [facility] [address] [place], [place], [address] GAP 5 (Normal) Range: 5-15 CO2 30.0 [...] A.D.A. criteria.Please note revised GLUCOSE reference range sfiagybci35/02/2018. 4-Uco-021926:47 URINE KVNG CULTURE-HE COL Comments: PERFORMED BY: [facility] [facility] [id number] Information: [id number] SRC:UR COUNT (97596) Antimicrobial MIHEAD (Normal) Comments: S = Susceptible; [...] Final report Culture,Comprehensive (Abnormal) 21-Jun-20188:17 Urinalysis, Office (72629) UA - LEUKOCYTE ESTERASE Negative (Normal) UA [...] AUT DIFF Comments: PATIENT NOT FASTINGPERFORMED BY: [facility]emobA[facility] Service UnitSimrks[address] [facility] [id number] (90929) Immature Grans (Abs) 0.0 {x10E3/uL} (Normal) Range: [...] 3.77-5.28 WBC 4.8 {x10E3/uL} (Normal) Range: 3.4-10.8 56-Cxc-63263:39 C-REACT PROT HIGH SENS(hsCRP) Comments: PATIENT NOT FASTINGPERFORMED BY: VenuemobCape [facility] Medical CenterRagacw7631 [facility] [id number] (94450) C-Reactive Protein, Cardiac 2.22 mg/L (Normal) Range: 0.00-3.00 Comments: Relative Risk for Future Cardiovascular Event Low <1.00 Average 1.00 - 3.00 High >3.00 57-Srj-00347:39 ESR-F (SED RATE ERYTHROCYTE - Comments: PATIENT NOT FASTINGPERFORMED BY: [facility] Ozewep3976 [address] [facility] [place] [id number] FEMALE) (79361) Sedimentation Rate-Westergren 9 mm/h (Normal) Range: 0-40 06-Rmb-71231:39 LDH (LD) (LACTATE DEHYDROGENASE) Comments: PATIENT NOT FASTINGPERFORMED BY: CB [facility] Ighdpg[address] [facility] [id number] (25446) LDH 209 [iU]/L (Normal) Range: 119-226 Hemoglobin A1c 5.5 % (Normal) Comments: PATIENT NOT FASTINGPERFORMED BY: CB [facility] Ybrkqk3457 [facility] [id number] 3:06 Range: 4.8-5.6 Comments: . Pre-diabetes: 5.7 - 6.4 Diabetes: >6.4 Glycemic control for adults with diabetes: <7.0 Written Authorization WAR (Normal) Comments: PATIENT NOT FASTINGPERFORMED BY: CB [facility] Kplgyh0259 [facility] [id number] 3:06 Comments: Written Authorization Received.Authorization received from ANNETTE POWELL LPN 04-36-3140Cmvxil by Lidia Reddy 95-Slp-333505:06 TSH (89502) Comments: PATIENT NOT FASTINGPERFORMED BY: CB [facility] Pvppry4789 [facility] [id number] TSH 2.370 {uIU/mL} (Normal) Range: 0.450-4.500 60-Xmb-149292:06 METABOLIC PANEL, COMPREHENSIVE Comments: PATIENT NOT FASTINGPERFORMED BY: CB [facility] Cjmfju6926 [facility] [id number] (70706) ALT (SGPT) 19 [iU]/L (Normal) Range: 0-32 [...] 8-27 Glucose 102 mg/dL (Abnormal) Range: 65-99 88-Hlv-612873:06 CBC W/AUTO DIFF WBC (13887) Comments: PATIENT NOT FASTINGPERFORMED BY: [facility]CoCape [facility] Medical CenterQueaep7406 [facility] [id number] Immature Grans (Abs) 0.0 {x10E3/uL} (Normal) Range: [...] 3.77-5.28 WBC 6.4 {x10E3/uL} (Normal) Range: 3.4-10.8 39-Jml-49014:56 Free T3 Comments: [facility] [address] [facility] [place], [place], [id number] FREE T3 2.7 pg/mL (Normal) Range: 2.18-3.98 97-Gwb-35873:56 Lipid Profile Comments: [facility] [address]uf[address] [facility]. [place], [place], [address] VLDL 34 mg/dL (Normal) Range: 5-40 LDL [...] 200-240 mg/dL Borderline >240 mg/dL High Risk 11-Iea-04191:56 Liver Profile Comments: [facility] [address] [place], [id number] ; ov 03/20 D BILI 0.12 mg/dL (Normal) Range: 0.00-0.30 T BILI 0.50 mg/dL (Normal) Range: 0.20-1.00 ALT 24 U/L (Normal) Range: 13-56 ALK P 67 U/L (Normal) Range: 45-117 AST 19 U/L (Normal) Range: 15-37 GLOB 3.7 g/dL (Normal) Range: 2.2-4.2 ALB 3.8 g/dL (Normal) Range: 3.2-5.0 T PROT 7.5 g/dL (Normal) Range: 6.4-8.2 :56 T4 Free Direct Comments: [facility] [address] [place], [address] T4 FREE DIRECT 0.97 ng/dL (Normal) Range: 0.76-1.46 12-Ros-65543:56 Thyroid Stim Hormone (TSH) Comments: [facility] [address] [place], [address] TSH 3.42 {uIU/mL} (Normal) Range: 0.358-3.74 4-Prt-061199:52 GGTP 30 U/L (Normal) Comments: [facility] [address] [place], [address] Range: 5-55 8-Bak-108314:52 Liver Profile Comments: [facility] [address] [place], [id number] D BILI 0.15 mg/dL (Normal) Range: 0.00-0.30 T BILI 1.10 mg/dL (Abnormal) Range: 0.20-1.00 ALT 31 U/L (Normal) Range: 12-78 ALK P 61 U/L (Normal) Range: 45-117 AST 21 U/L (Normal) Range: 15-37 GLOB 3.8 g/dL (Normal) Range: 2.2-4.2 ALB 3.8 g/dL (Normal) Range: 3.4-5.0 Comments: Please note revised Albumin AND Globulin reference rangeeffective 2017. T PROT 7.6 g/dL (Normal) Range: 6.4-8.2 4-Ixu-625287:36 Bilirubin, Direct Comments: LIVER AND GGTP FOR [facility] [address] [place], [place], [address] D BILI 0.14 mg/dL (Normal) Range: 0.00-0.30 :36 CBC W/Diff, Automated Comments: LIVER AND GGTP FOR [facility] [address] [place], [place], [id number] Absolute Lymph 1.45 {X10_3/ul} (Normal) Range: 0.83-4.51 [...] Metabolic Profil Comments: LIVER AND GGTP FOR [facility] FOR [facility] [address] [place], [place], [address] GAP 9 (Normal) Range: 5-15 CO2 27.0 [...] 7-18 GLU 91 mg/dL (Normal) Range: 70-110 9-Ler-011762:36 GGTP 22 U/L (Normal) Comments: LIVER AND GGTP FOR [facility] [address] [place], [address] Range: 5-55 1-Rag-628440:36 Lipid Profile Comments: LIVER AND GGTP FOR [facility] [address] [place], [address] VLDL 56 mg/dL (Abnormal) Range: 5-40 [...] 200-240 mg/dL Borderline >240 mg/dL High Risk 2-Car-125119:36 Microalb:Creat Ratio,Random UR Comments: LIVER AND GGTP FOR [facility] [address] [place], [address] MALB:CREAT 38.1 {mg/g_CRE} (Abnormal) MICROALBUMIN,UR 43.8 mg/L (Normal) UR CREAT 115.00 mg/dL (Normal) 2-Hhn-043379:36 Thyroid Stim Hormone (TSH) Comments: LIVER AND GGTP FOR [facility] [address] [place], [address] TSH 4.13 {uIU/mL} (Abnormal) Range: 0.358-3.74 7-Xcz-476621:36 Urinalysis, Complete Comments: LIVER AND GGTP FOR [facility] FOR [facility] was Urine Obtained? [facility] [address] [place], [place], [address] HYALINE CAST 0-5 SEEN {/lpf} Range: 0-5 [...] BIOPSY (CHOOSE SITE) See Note (Normal) Comments: [facility] [address] [place], [address] 0:00 Comments: Patient: NEISHA TOBAR : 1950 (66/F) Acct Num: [id number] Phys: Steve Richard Unit Num: [id number] Loc: LABSPEC Specimen: [id number] Received: 02/11/16 - 0754 Spec Type: COLON BX TISSUES TISSUES: GROSS DESCRIPTION Received is one container labeled with the patient name and designated biopsy polyp right colon. The specimen consists of multiple irre gular fragments of light ramirez soft tissue that in aggregate measure 0.2 x 0.1 x 0.1 cm. The specimen is totally submitted in one cassette. / AM:chris 02/10/16 TC:5 CPT:03017 HEADER OPERATION: Colon oscopy with biopsy PRE-OP DIAGNOSIS: High-risk screen/polyp TISSUE SUBMITTED: Biopsy, polyp, right colon - rule out adenoma MICROSCOPIC DESCRIPTION Slides are reviewed. MICROSCOPIC DIAGNOS IS Right colon polyp, biopsy: Hyperplastic polyp. AM:crow 02/11/16 Signed Sameul Curtis 02/11/16 <signature on file> C difficile Toxins A+B, Negative (Normal) Comments: PATIENT NOT FASTINGPERFORMED BY: [facility]6[address] [facility] [id number] 3:19 EIA Cryptosporidium EIA Negative (Normal) Comments: PATIENT NOT FASTINGPERFORMED BY: [place] [id number] [facility] [id number] 3:19 :19 Giardia, EIA, Ova/Parasite Comments: PATIENT NOT FASTINGPERFORMED BY: [place] [id number] [facility] [id number] Giardia lamblia Ag, Negative (Normal) EIA Result 1 NOCP (Normal) Comments: No ova, cysts, or parasites seen. Ova + Parasite Exam Final report Comments: These results were obtained using wet preparation(s) and trichromestained smear. This test does not include testing for Cryptosporidiumparvum, Cyclospora, or Microsporidia. (Normal) : Occult Blood, Fecal, Negative (Normal) Comments: PATIENT NOT FASTINGPERFORMED BY: [facility]6[address] [facility] [id number] 19 IA :19 Stool Culture Comments: PATIENT NOT FASTINGPERFORMED BY: [address] [id number] Information: SRC:ST STOOL E coli Shiga Toxin EIA Negative (Normal) Result 1 NCI (Normal) Comments: No Campylobacter species isolated. Campylobacter Culture Final report (Normal) Result 1 NSS (Normal) Comments: No Salmonella or Shigella recovered. Salmonella/Shigella Screen Final report (Normal) :19 White Blood Cells (WBC), Comments: PATIENT NOT FASTINGPERFORMED BY: [facility]6[address] [facility] [id number] Stool Result 1 NWBC (Normal) Comments: No white blood cells seen. White Blood Cells (WBC), Final report (Normal) Stool :54 CBC W/AUTO DIFF WBC Comments: PATIENT NOT FASTINGPERFORMED BY: [facility]6[address] [facility] [id number] Information: [id number] (71550) Immature Grans (Abs) 0.0 {x10E3/uL} (Normal) Range: [...] PANEL, COMPREHENSIVE Comments: PATIENT NOT FASTINGPERFORMED BY: [facility]6[address] [facility] [id number] (14724) ALT (SGPT) 19 [iU]/L (Normal) Range: 0-32 [...] 99 mg/dL (Normal) Range: 65-99 :54 TSH (48542) Comments: PATIENT NOT FASTINGPERFORMED BY: [facility]Peelmy7818 [facility] [id number] TSH 2.210 {uIU/mL} (Normal) Range: 0.450-4.500 :05 Urinalysis, Office (86269) UA - LEUKOCYTE ESTERASE Negative (Normal) UA [...] CHOL 310 mg/dL (Abnormal) Comments: <200 mg/dL Vyuwqiaen247-705 mg/dL Borderline>240 mg/dL High Risk TRIG 185 [...] UCOL Yellow (Normal) :26 HgA1C , Office (69441) HgA1C , Office 5.7 % (Normal) Range: [...] CHOL 286 mg/dL (Abnormal) Comments: <200 mg/dL Itmpnvgjq905-553 mg/dL Borderline>240 mg/dL High Risk :14 MIACRE tMICROCREAT <TEST NOT PERFORMED> {mg/g_CRE} (Normal) MIALB < 5.0 mg/L (Normal) CREU 18.4 mg/dL (Normal) :14 TSH 3.54 {uIU/mL} (Normal) Range: 0.358-3.74 53-Hlk-30929:14 [facility] 0 SEEN {/hpf} (Normal) UBAC [...] (Normal) UCLAR Clear (Normal) UCOL Yellow (Normal) 5-Aqj-586406:43 BILAT SCRN DIGITAL & CAD Radiology Report [...] Cutler M.D.January 23, 2013 at 12:21:32 PM [id number] Signed GP/GP If you are the referring physician and would like to consult with theradiologist who provided this interpretation, please contact Letty Mukherjee at [phone]. If this radiologist is unavailable, youwill be directed to another radiologist to as sist. If you are a patient with a question regarding this report, pleasecontactyour referring physician directly. Professional Interpretation Provided By: tenXer, Phone ,Fax These documents contain legally protected [...] 01/23/13 1143 by Gisela Cutler MDranscribed on 01/24/13 171 by ITS IMPORTSign by Kvng Cutler MD on 01/24/131712 Sign by: Kvng Cutler MD 96-Ucj-16985:57 ABDOMEN/PELVIS WITH CONTRAST Radiology Report See Note [...] narrowing at the L4, L5, and L5, U4lsleqd. IMPRESSION:Sigmoid diverticulosis. Signed:Kvng Cutler M.D.September 01, 2012 at 1:13:05 PM [phone] Signed GP/GP If you are the referring physician and would like to consult with theradiologist who provided this interpretation, please contact Letty Mukherjee at [phone]. If this radiologist is unavailable, youwill be directed to another radiologist to assist. If you are a patient with a question regarding this report, pleasecontactyour referring physician directly . Professional Interpretation Provided By: tenXer, Phone , These documents contain legally protected [...] 09/01/12 1323 Sign by: Kvng Cutler MD 33-Isk-637664:53 CRE GFRAA 109 mL/min (Normal) GFR 90 mL/min (Normal) CREAT 0.7 mg/dL (Normal) Range: 0.6-1.0 :41 KNEE,4 OR MORE VIEWS Radiology Report See [...] regarding t his report, please call our [id number] line @ Dictated on 01/31/12 1436 by Gisela Cutler MDranscribed on 02/01/12 1327 by ITS IMPORTSign by Kvng Cutler MD on 02/01/12 13 28 Sign by: Kvng Cutler MD :36 CULTURE, URINE URINE CULTURE See Note {CFU/mL} (Normal) Comments: COLONY COUNT 25,000-50,000 ORGANISM 1: MIXED GRAM POSITIVE ORGANISMS :17 Urinalysis, Office (79732) UA - BILIRUBIN Negative (Normal) UA - [...] :34 TSH 3.22 {uIU/mL} (Normal) Range: 0.358-3.74 68-Wtg-545859:23 URINE KVNG CULTURE-IDENTIFICATN Comments: PATIENT NOT FASTINGPERFORMED BY: [facility] CenterUvwmxp4163 [facility] [id number] Information: [id number] ([id number]) Antimicrobial MIHEAD (Normal) Comments: S = Susceptible; [...] primarily for treating urinary tract infections. (CLSI, A672-G26,2009) Result 1 Klebsiella pneumoniae Comments: 3,000 Colonies/mL . (Normal) Urine Final report (Normal) Culture,Comprehensive :52 Urinalysis, Office (85370) UA - BILIRUBIN Negative (Normal) UA - BLOOD Negative (Normal) UA - GLUCOSE Negative (Normal) UA - KETONES Negative mg/dL (Normal) UA - LEUKOCYTE ESTERASE Small (Normal) UA - NITRITE Negative (Normal) UA - PH 5.0 (Normal) UA - PROTEIN Negative mg/dL (Normal) UA - SPECIFIC GRAVITY 1.015 (Normal) URINE UROBILINGN HE TIMED Normal mg/dL (Normal) 9-Abb-119592:44 TRANSVAGINAL NON- Radiology Report See Note (Normal) Comments: Exam Number: [id number] LINICAL:This is a 60-year-old female patient with [...] were not visualized. Reported By: KVNG CUTLER 4-Xeu-750523:24 PELVIC (NON ) Radiology Report See Note (Normal) Comments: Exam Number: [id number] LINICAL:This is a 60-year-old female patient with [...] were not visualized. Reported By: KVNG CUTLER 63-Yws-607802:53 URINE KVNG CULTURE-HE COL Comments: PATIENT NOT FASTINGPERFORMED BY: LUIS [facility] [address] [facility] [id number] Information: SRC:URT [id number] COUNT (73522) Result 3 BETAGB (Normal) Comments: Beta hemolytic [...] primarily for treating urinary tract infections. (CLSI, G692-A81,2008) Result 2 Klebsiella pneumoniae Comments: 100 Colonies/mL . (Normal) Urine Final report (Normal) Culture,Comprehensi chucho 58-Oan-14085:50 Urinalysis, Office (65996) UA - LEUKOCYTE ESTERASE Trace (Normal) UA - NITRITE Negative (Normal) URINE UROBILINGN HE TIMED Normal mg/dL (Normal) UA - PROTEIN Negative mg/dL (Normal) UA - PH 5.0 (Normal) UA - BLOOD Non Hemolyzed Trace (Normal) UA - SPECIFIC GRAVITY 1.010 (Normal) UA - KETONES Negative mg/dL (Normal) UA - BILIRUBIN Negative (Normal) UA - GLUCOSE Negative (Normal) 2-Nsf-597337:00 Urinalysis, Office (57287) UA - LEUKOCYTE ESTERASE Trace (Normal) UA [...] Comments: GLU,2HPPG 75gm GLUC PPG GLUP from 0902:G50285I. :34 CBC, EMPLOYEE MCHC 34.4 g/dL (Normal) [...] CHOL 283 mg/dL (Abnormal) Comments: <200 mg/dL Qdupkleyx449-936 mg/dL Borderline>240 mg/dL High Risk HDL 53 [...] Report See Note (Normal) Comments: Exam Number: [id number] CLINICAL:This is a 60-year-old female patient with [...] of the thyroid. Reported By: KVNG CUTLER 31-Fug-57467:10 COLON BX P-COLBX (Normal) Comments: OPERATIONColonoscopy with biopsyPRE-OPERATIVE DIAGNOSISDiarrheaPOST- OPERATIVE DIAGNOSISRule out microscopic colitisTISSUE SUBMITTEDA - Right colon biopsy, B - Left colon biopsyMICROSCOPIC DIAGNOSISA. R ight colon, biopsy:Fragments of colonic mucosa, no pathologic diagnosis.B. Left colon, biopsy:Fragments of colonic mucosa, no pathologic diagnosis.SJ:chris 03/20/10GROSS DESCRIPTIONA - Received in formali n [...] cassette. / LONG:chris 03/19/10TC:4REPORT SIGNED: SHREE WEINSTEIN 03/20/1010-Feb-201047-Ehs-119497:08 KNEE,4 OR MORE VIEWS (MT) Radiology Report See Note (Normal) Comments: Exam Number: [id number] CLINICAL:Pain X-RAY EXAMINATION LEFT KNEE TECHNIQUE:Four views of the knee. COMPARISON:None. FINDINGS:Normal visualized distal femur. Normal visualized proximal tibia. Normal visu alized proximal fibula. There is minimal narrowing of the medial femorotibial compartment.Normal lateral femorotibial compartment. Normal patellofemoral articulation. There is no demonstrated jointeffu tamia. There is no demonstrated soft tissue swelling. IMPRESSION:Chronic degenerative changes, as discussed above. Reported By: SURINDER WOODRUFF 30-Agd-206436:00 SPINE, LUMBAR W/W/O CONTRAST Radiology Report See Note (Normal) Comments: Exam Number: [id number] CLINICAL:59-year-old female with displaced lumbar disk low [...] Reported By: LANDY HIGHTOWER M.D. :03 TRAN-D [id number] TRAN-DIRECT SeeNote (Normal) Comments: Result: Negative Performed At: [facility] [address] [place], [place] [id number] At: [facility] [address] [place], [place] [id number] :03 ANTI-CCP 918049 6 {units} (Normal) Range: 0-19 Comments: Negative [...] 2.6-6.0 VLDL 30 mg/dL (Normal) Range: 5-40 57-Qxa-42570:41 EMP URINALYSIS BILIRUBIN URINE SeeNote (Normal) Comments: [...] 0.2 EU/dl (Normal) Range: 0.2 - 1.0 25-Apr-20079:17 MAMM, BILAT SCRN DIGITAL & CAD Radiology Report See Note (Normal) Comments: Exam Number: [id number] BILATERAL SCREENING MAMMOGRAM COMPARISONComparison is made to [...] The mammogramswere also examined with computer-aided detection software(MTPV.). Reported By: CHUCK PEREZ M.D. 51-Xsl-596114:46 SHOULDER,MIN 2 VIEWS Radiology Report See Note (Normal) Comments: Exam Number: [id number] RIGHT SHOULDER HISTORYShoulder pain. TECHNIQUEFour views of [...] normal variant. Reported By: LUIS JORGE M.D. 71-Ryu-756606:00 LQD PAP [id number] Comments: CYTOLOGY INFORMATION:- CLINICAL INFORMATION: POSTMENOPAUSAL- DATE LMP/MENOPAUSE: - COLLECTION VIAL: Thin Prep Vial- SKIVER BOX TOE SOURCE: CERVICAL/ENDOCERVICAL- COLLECTION TECHNIQUE: BRUSH/SPATULA ADEQ Comment (Normal) Comments: Satisfactory for evaluation. Endocervical and/or squamous metaplasticcells (endocervical component) are present. COMM . (Normal) DIAGN Comment (Normal) Comments: NEGATIVE FOR INTRAEPITHELIAL LESION AND MALIGNANCY. HPV RFLX Comment (Normal) Comments: The HPV DNA reflex criteria were not met with this specimenresult therefore, no HPV testing was performed. .Performed At: [facility] [place], [place] [id number] PAPSMR Comment (Normal) Comments: The Pap smear is a screening test designed to aid in thedetection of pre-malignant and malignant conditions of theuterine cervix. It is not a diagnostic procedure andshould not be used as the sole mean s of detecting cervicalcancer. Both false-positive and false-negative reports dooccur. . 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 Indication: Hypertensive heart disease without congestive [...] Diagnostic Tests Indication: Headache Headache : Reviewed 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 Indication: Headache Hypertensive heart disease without [...] Indication: Epigastric pain Epigastric pain : Reviewed 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 Indication: Epigastric pain Epigastric pain : [...] reflux disease) Planned Observations Metabolic Panel, Basic (54758)Indication: Therapeutic drug monitoring On: 33-Xnf-20377:13 Request Comments: give to jud to review HEPATIC FUNCTION PANEL (95832)Indication: Common bile duct dilation On: 02-Tbn-838806:18 Request HEPATIC FUNCTION PANEL (81536)Indication: Epigastric pain On: 75-Zmn-191044:51 Request LIPID PANEL (65901)Indication: Hypercholesteremia On: :25 Request TSH (19534)Indication: Abnormal TSH On: : Request T4, FREE (THYROXINE) (96927)Indication: Abnormal TSH On: : Request T3, FREE (TRIDOTHYRONINE) (40727)Indication: Abnormal TSH On: : Request TSH (11813)Indication: Hypercholesteremia On: :14 Request URINALYSIS, W/ MICRO (29465)Indication: Hypertensive heart disease without congestive heart failure On: :14 Request MICROALBUMIN: CREATININE RATIO (51812) AND (65846)Indication: Hypertensive heart disease without congestive heart failure On: :14 Request METABOLIC PANEL, COMPREHENSIVE (28943)Indication: Hypertensive heart disease without congestive heart failure On: :14 Request LIPID PANEL (32634)Indication: Hypercholesteremia On: :14 Request CBC W/AUTO DIFF WBC (07290)Indication: Hypertensive heart disease without congestive heart failure On: :14 Request Cryptosporidium Sp Ag, Direct Fluorescent Ab (15358)Indication: Diarrhea On: :44 Request GIARDIA LAMBLIA ANTIBODY (27774)Indication: Diarrhea On: :43 Request C-DIFFICILE, STOOL (87575)Indication: Diarrhea On: :43 Request OVA & PARASITE DIR SMEAR (79274)Indication: Diarrhea On: :43 Request OCCULT BLOOD FECES SCREEN (15203)Indication: Diarrhea On: :43 Request LEUKOCYTE COUNT, FECAL (49085)Indication: Diarrhea On: :43 Request KVNG CULTURE-STOOL (87326)Indication: Diarrhea On: :43 Request FECAL OCCULT HGB ASSAY- tubes sent home (05284)Indication: Encounter for Medicare annual wellness exam On: :28 Request TSH (16925)Indication: Hypertensive heart disease without congestive heart failure On: 82-Ctm-306191:27 Request URINALYSIS, W/ MICRO (95843)Indication: Hypertensive heart disease without congestive heart failure On: 39-Aes-280333:27 Request MICROALBUMIN: CREATININE RATIO (14021) AND (03007)Indication: Hypertensive heart disease without congestive heart failure On: :27 Request METABOLIC PANEL, COMPREHENSIVE (47039)Indication: Hypertensive heart disease without congestive heart failure On: 45-Eik-930005:27 Request CBC WITH MANUAL DIFF (91404)Indication: Hypertensive heart disease without congestive heart failure On: 33-Yux-638867:27 Request LIPID PANEL (14954)Indication: Hypercholesteremia On: 05-Feb-2014 Request URINE KVNG CULTURE-HE COL COUNT (43087)Indication: Urinary frequency On: :17 Request Magnesium (86895)Indication: Hypopotassemia On: 69-Ncn-965230:50 Request Metabolic Panel, Basic (53872)Indication: Hypopotassemia On: :49 Request TSH (45186)Indication: Hypercholesteremia On: :09 Request URINALYSIS, W/ MICRO (72672)Indication: Hypertensive heart disease without congestive heart failure On: :09 Request MICROALBUMIN: CREATININE RATIO (57329) AND (12911)Indication: Hypertensive heart disease without congestive heart failure On: :09 Request METABOLIC PANEL, COMPREHENSIVE (29601)Indication: Hypertensive heart disease without congestive heart failure On: :09 Request LIPID PANEL (29979)Indication: Hypercholesteremia On: :09 Request CBC WITH MANUAL DIFF (97334)Indication: Hypertensive heart disease without congestive heart failure On: :09 Request URINE KVNG CULTURE-HE COL COUNT (51520)Indication: Dysuria On: 0-Azu-665743:00 Request Glucose, PP/2 Hour (47822)Indication: Other specified abnormal findings of blood chemistry On: :21 Request HEPATIC FUNCTION PANEL (77246)Indication: Hypercholesteremia On: :57 Request LIPID PANEL (01571)Indication: Hypercholesteremia On: :57 Request Comments: DO IN 3 MONTHS Glucose, PP/2 Hour (46559)Indication: Other specified abnormal findings of blood chemistry On: :57 Request TRAN (ANTINUCLEAR ANTIBODY) (43341)Indication: Pain in unspecified joint On: : Request C-REACTIVE PROTEIN (85971)Indication: Pain in unspecified joint On: : Request CBC WITH MANUAL DIFF (90164)Indication: Pain in unspecified joint On: : Request CCP ANTIBODY (46388)Indication: Pain in unspecified joint On: Request METABOLIC PANEL, COMPREHENSIVE (72708)Indication: Pain in unspecified joint On: : Request RHEUMATOID FACTOR-QUANT (80526)Indication: Pain in unspecified joint On: Request SED RATE ERYTHROCYTE (67776)Indication: Pain in unspecified joint On: : Request TSH (82158)Indication: Pain in unspecified joint On: Request FECAL OCCULT- Tubes sent home (97638)Indication: Benign essential hypertension On: : Request TSH (28646)Indication: Benign essential hypertension On: : Request URINALYSIS W/O MICRO (42798)Indication: Benign essential hypertension On: : Request MICROALBUMIN: CREATININE RATIO (35440) AND (06941)Indication: Benign essential hypertension On: : Request METABOLIC PANEL, COMPREHENSIVE (87329)Indication: Benign essential hypertension On: : Request LIPID PANEL (62601)Indication: Benign essential hypertension On: : Request CBC WITH MANUAL DIFF (84227)Indication: Benign essential hypertension On: :09 Request HEPATIC FUNCTION PANEL (01413)Indication: Hypercholesteremia On: 1-Jin-322917:56 Request Comments: DO IN 3 MONTHS LIPID PANEL (95866)Indication: Hypercholesteremia On: 7-Nnd-090494:56 Request URINALYSIS W/O MICRO (05216)Indication: Hypertension On: :51 Request TSH (21881)Indication: Hypertension On: :51 Request MICROALBUMIN URINE QUANT (59436)Indication: Hypertension On: :51 Request METABOLIC PANEL, COMPREHENSIVE (51559)Indication: Hypertension On: :50 Request LIPID PANEL (14445)Indication: Hypertension On: :50 Request CBC WITH MANUAL DIFF (23806)Indication: Hypertension On: :50 Request Planned Procedures Nuclear Stress Test/Stress On: 25-Sep-2018 Intent SPECT/AdenosineBy: Jessica Croona DO, DO, Kathleen Renal Duplex ScanBy: Chloe SCHROEDER, On: 13-Sep-2018 Intent Jessica Proctor DO Ultrasound - RenalBy: Chloe SCHROEDER, On: 13-Sep-2018 Intent Jessica Proctor DO X-RAY OF ABDOMEN, FLAT PLATE AND ERECT On: 21-Jun-2018 Intent (80492)By: Jud Samaniego CNP X-RAY OF CERVICAL SPINE, TWO VIEWS On: 02-Jun-2018 Intent (68569)By: Jessica Corona DO, DO, Kathleen Radiology - Lumbar SpineBy: Mohamud On: 25-May-2018 Intent Addie ELECTROCARDIOGRAM, COMPLETE (ECG) On: 04-May-2018 Intent (34592)By: Jessica Corona DO Comments: nsr / no acute chg - pvc present and IVCD Jessica SCHROEDER YATV-FG-TFUT BEHAVIORAL COUNSELING FOR On: 28-Apr-2018 Intent OBESITY, 15 MINUTES (G0447)By: Jessica Corona DO, DO, Kathleen DEXA SCAN AXIAL SKELETON (79448)By: On: 28-Apr-2018 Intent Jessica Corona DO, DO, Kathleen MRCP (MAGNETIC RESONANCE On: 06-Feb-2018 Intent CHOLANGIOPANCREATOGRAPHY) (S8037)By: Jessica Corona DO, DO, Kathleen ULTRASOUND OF UPPER ABDOMEN (44617)By: On: 27-Jan-2018 Intent Jessica Corona DO, DO, Kathleen Comments: attention size of CBD SCREENING DIGITAL TOMOSYNTHESIS OF On: 09-Jan-2018 Intent BREAST (95751)By: Addie Odell LPN ELECTROCARDIOGRAM, COMPLETE (ECG) On: 03-Aug-2017 Intent (25775)By: Jessica Corona DO Comments: sinus vinicio no new acute chg Jessica SCHROEDER MAMMOGRAM BREAST BILATERAL SCREENING On: 03-Jul-2015 Intent DIGITAL (46286)By: Jessica Corona DO, DO, Kathleen Radiology - ChestBy: Danette SPRINGER Jud Gunter On: 26-May-2015 Intent Aerosol Treatment (62391)By: Danette SPRINGER, On: 26-May-2015 Intent Mildred Aerosol Treatment (24099)By: Froylan KENT, On: 05-May-2015 Intent Sandy Radiology - Lumbar SpineBy: Danette SPRINGER, On: 15-Apr-2015 Intent Jud Gunter Toradol Injection, 30 mg (J1885)By: On: 11-Apr-2015 Intent Danette SPRINGER Mildred ADMINISTRATION OF PNEUMOCOCCAL VACCINE On: 10-Jun-2014 Intent (G0009)By: Jessica Corona DO, DO, Kathleen PNEUM VAC ADLT/IMUMNOSPR, SBC/INTRM On: 10-Jun-2014 Intent (13459)By: Jessica Corona DO Comments: lot: [id number]: 03/22/15site/route: L del/IMamt: 0.5mLVIS signed when applicableJULIEN Rod DO, Kathleen XNRK-NU-KYXG BEHAVIORAL COUNSELING FOR On: 10-Jun-2014 Intent OBESITY, 15 MINUTES (G0447)By: Jessica Corona DO, DO, Kathleen BILATERAL MAMMOGRAMS (67760)By: Chloe On: 04-Jun-2014 Intent Jessica SCHROEDER DO, Kathleen EKG (23255)By: Jessica Corona DO On: 04-Feb-2014 Intent Jessica Corona DO Comments: nsr no acute cg Eprescribed prescriptions (G8553)By: On: 16-Nov-2013 Intent Jessica Corona DO, DO, Kathleen gastric emptying studyBy: Chloe SCHROEDER, On: 10-Oct-2013 Intent Jessica Proctor DO FLU VAC, SPLIT, >3 YEARS, INTRAMUSC On: 06-Sep-2013 Intent (58504)By: Addie Odlel LPN Comments: Lot:[id number]:6.14Amt:0.5mlRoute:IMSite: L DltdGiven By: DONTE FontenotVIS signed ADMINISTRATION OF INFLUENZA VIRUS On: 06-Sep-2013 Intent VACCINE (G0008)By: Addie Odell LPN EKG (66048)By: Jessica Corona DO On: 26-Mar-2013 Intent Jessica Corona DO Comments: nsr no acute ischemic changes/ borderline LVH Eprescribed prescriptions (G8553)By: On: 26-Mar-2013 Intent Shaye Goldsmithsea Eprescribed prescriptions (G8553)By: On: 23-Feb-2013 Intent Keara Goldsmitha MAMMOGRAM, SCREENING, BOTH BREASTS On: 19-Jan-2013 Intent (40478)By: Jessica Corona DO, DO, Kathleen CT - Abdomen & Pelvis (IV Contrast On: 28-Aug-2012 Intent Needed)By: Jessica Corona DO, DO, Kathleen Eprescribed prescriptions (G8553)By: On: 28-Aug-2012 Intent Addie Odell LPN DRAIN/INJECT, JOINT/BURSA (09903)By: On: 25-Feb-2012 Intent Jessica Corona DO, DO, Kathleen Comments: inject 2 cc marcaine 1 cc kenolog Radiology - Knee - RightBy: Chloe SCHROEDER, On: 31-Jan-2012 Intent Jessica Proctor DO Eprescribed prescriptions (G8553)By: On: 25-Oct-2011 Jessica Lemus DO, DO, Kathleen TDAP VACCINE >7 IM (58673)By: Chloe On: 02-Jul-2011 Jessica Mauricio DO, DO, Kathleen Comments: 0.5cc given im rt dltd lot [id number] exp 08-11-13 EKG (92862)By: Jessica Corona DO On: 01-Feb-2011 Intent Jessica Corona DO Comments: nsr no acute changes-- borderline LVH -- but seen on echo best Bio Z (47014)By: Jessica Corona DO On: 01-Feb-2011 Intent Jessica [...] On: 18-Aug-2009 Intent Jessica Proctor DO EKG (08894)By: Jessica Corona DO On: 18-Aug-2009 Intent Jessica Corona DO Comments: nsr no acute changes Pulse Oximetry ([id number])By: Chloe SCHROEDER On: 05-Mar-2009 Intent Jessica Proctor DO Comments: 93% RA Aerosol Treatment ([id number])By: Chloe SCHROEDER, On: 05-Mar-2009 Intent Jessica Proctor DO Comments: better air exchange no wheeze Solu- Medrol Injection, 125mg On: 05-Mar-2009 Intent ([id number])By: Jessica Corona DO Comments: injection given in left glutues alvarado. Pt tolerated well. [id number] Jessica SCHROEDER EKG ([id number])By: Jessica Corona DO On: 25-Feb-2008 Intent Jessica [...] TROMETHAMINE, PER 15 MG Ordered: 11-Apr-2015 Pending Danette SPRINGER, Jud Gunter Instructions Name Dates Details Non-smoker : How [...] failure Hypercholesteremia : DISCONTINUED - LIPID PANEL (48954) Indication: Hypercholesteremia Hypercholesteremia : DISCONTINUED - TSH (21762) Indication: Hypercholesteremia Hypertensive heart disease without congestive heart failure : DISCONTINUED - URINALYSIS, W/ MICRO (85054) Indication: Hypertensive heart disease without congestive heart failure Hypertensive heart disease without congestive heart failure : DISCONTINUED - MICROALBUMIN: CREATININE RATIO (02596) AND (91532) Indication: Hypertensive heart disease without congestive heart failure Hypertensive heart disease without congestive heart failure : DISCONTINUED - METABOLIC PANEL, COMPREHENSIVE (01794) Indication: Hypertensive heart disease without congestive heart failure Hypertensive heart disease without congestive heart failure : DISCONTINUED - CBC WITH MANUAL DIFF (52186) Indication: Hypertensive heart disease without congestive heart failure Irritable Bowel Syndrome : Patient Instructions Indication: Irritable Bowel Syndrome Abdominal pain, acute, left lower quadrant : Patient Instructions Indication: Abdominal pain, acute, left lower quadrant Abdominal pain, acute, left lower quadrant : Patient Instructions Indication: Abdominal pain, acute, left lower quadrant Encounters Office Visit On: 06-Nov-2018 11:44 Encounter Reason: HypertensionEncounter Diagnosis: BMI 33.0-33.9,adult, Non-smoker, Nausea, Right upper quadrant pain, Chronic scapular pain, Hypertensive heart disease without congestive heart failure, Dilated cbd, acquired, End: 06-Nov-2018 17:27 Positional lightheadedness [facility] Office Visit [...] are helping. Going on a trip next week-[facility] bus trip.Encounter Diagnosis: Non-smoker, BMI [...] pr eventative measures: PAP smear (2016), mammography (2018) and colonoscopy (2016). The patient does not have durable power of employment attorney or living will. The patient has [...] patient does not have durable power of employment attorney or living will. The patient has [...]
--- OUTSIDE RECORDS SUMMARY | 2018-12-17 17:11 | XMS RPT_ITS ---
:1950 Author Organization [place] Support Name Relationship Address Phone TRAVIS MCNEAL Unavailable [address] + [place] [address] ADDIE MCNEAL Unavailable [address] + [place] [address] R Unavailable Unavailable Unavailable TRAVIS MCNEAL Unavailable [address] + [place] [address] ADDIE MCNEAL Unavailable [address] + [place] [address] R Unavailable Unavailable Unavailable TRAVIS MCNEAL Unavailable [address] + [place] [address] ADDIE MCNEAL Unavailable [address] + [place] [address] R Unavailable Unavailable Unavailable TRAVIS MCNEAL Unavailable [address] + [place] [address] ADDIE MCNEAL Unavailable [address] + [place] [address] R Unavailable Unavailable Unavailable TRAVIS MCNEAL Unavailable [address] + [place] [address] ADDIE MCNEAL Unavailable [address] + [place] [address] R Unavailable Unavailable Unavailable TRAVIS MCNEAL Unavailable [address] + [place] [address] ADDIE MCNEAL Unavailable [address] + [place] [address] R Unavailable Unavailable Unavailable TRAVIS MCNEAL Unavailable [address] + [place] [address] ADDIE MCNEAL Unavailable [address] + [place] [address] R Unavailable Unavailable Unavailable TRAVIS MCNEAL Unavailable [address] + [place] [address] ADDIE MCNEAL Unavailable [address] + [place] [address] R Unavailable Unavailable Unavailable TRAVIS MCNEAL Unavailable [address] + [place] [address] ADDIE MCNEAL Unavailable [address] + [place] [address] R Unavailable Unavailable Unavailable TRAVIS MCNEAL Unavailable [address] + [place] [address] ADDIE MCNEAL Unavailable [address] + [place] [address] R Unavailable Unavailable Unavailable TRAVIS MCNEAL Unavailable [address] + [place] [address] ADDIE MCNEAL Unavailable [address] + [place] [address] R Unavailable Unavailable Unavailable TRAVIS MCNEAL Unavailable [address] + [place] [address] ADDIE MCNEAL Unavailable [address] + [place] [address] R Unavailable Unavailable Unavailable NOT GIVEN Unavailable Unavailable Unavailable TRAVIS ELIZABET Unavailable [address] [place] [address] MIGDALIA JARRETT Unavailable [address] [place], [place] [id number] SARMAD MCNEALER Unavailable [address] + [place] [address] ADDIE MCNEAL Unavailable [address] + [place] [address] R Unavailable Unavailable Unavailable DAKOTACatalinoSARMADER Unavailable [address] + [place] [address] BEERADDIE Bae Unavailable [address] + [place] [address] R Unavailable Unavailable Unavailable TRAVIS MCNEAL Unavailable [address] + [place] [address] ADDIE MCNEAL Unavailable [address] + [place] [address] R Unavailable Unavailable Unavailable ELIZABET TRAVIS Unavailable [address] + [place] [address] ADDIE MCNEAL Unavailable [address] + [place] [address] R Unavailable Unavailable Unavailable TRAVIS MCNEAL Unavailable [address] + [place] [address] ADDIE MCNEAL Unavailable [address] + [place] [address] R Unavailable Unavailable Unavailable ELIZABET TRAVIS Unavailable [address] + [place] [address] ADDIE MCNEAL Unavailable [address] + [place] [address] R Unavailable Unavailable Unavailable TRAVIS MCNEAL Unavailable [address] + [place] [address] ADDIE MCNEAL Unavailable [address] + [place] [address] R Unavailable Unavailable Unavailable TRAVIS MCNEAL Unavailable [address] + [place] [address] ADDIE MCNEAL Unavailable [address] + [place] [address] R Unavailable Unavailable Unavailable Care Team Providers Name Role Phone SUSU VALERIO MD Admitting Unavailable SSUU VALERIO MD Attending Unavailable HLIVKOSUSU MD Primary Care Unavailable FABY, [place] DO Consulting Unavailable PROVIDER, UNKNOWN Consulting Unavailable Faby DO, Jessica Attending Unavailable Faby DO, Jessica Referring Unavailable Faby DO, Jessica Consulting Unavailable Alejandro, Marcy Attending Unavailable Faby, Jessica Primary Care Unavailable Alejandro, Marcy Attending Unavailable Faby, Ej[place]ica Primary Care Unavailable Alejandor, Marcy Attending Unavailable Faby, Jessica Primary Care Unavailable Alejandro, Marcy Attending Unavailable Alejandro, Marcy Referring Unavailable Faby, Jessica Primary Care Unavailable Alejandro, Marcy Attending Unavailable Faby, Jessica Primary Care Unavailable Alejandro, Marcy Referring Unavailable Faby, Jessica Attending Unavailable Faby, Jessica Primary Care Unavailable Faby, Jessica Attending Unavailable Faby, Jessica Referring Unavailable Faby, Jessica Primary Care Unavailable Faby, Jessica Attending Unavailable Faby, Jessica Referring Unavailable Faby, Jessica Primary Care Unavailable Faby, Jessica Attending Unavailable Faby, Jessica Primary Care Unavailable Faby, Jessica Referring Unavailable Faby, Jessica Attending Unavailable Faby, Jessica Primary Care Unavailable Addie Mallory CHOKE REAMER-C Attending Unavailable Addie Mallory CHOKE REAMER-C Referring Unavailable Faby, Jessica Primary Care Unavailable Faby, Jessica Attending Unavailable Faby, Jessica Referring Unavailable Faby, Jessica Primary Care Unavailable Ciesa, Winnie Attending Unavailable Ciesa, Winnie Referring Unavailable Faby, Jessica Primary Care Unavailable Faby, Jessica Attending Unavailable Faby, Jessica Referring Unavailable Faby, Jessica Primary Care Unavailable Faby, Jessica Primary Care Unavailable Anel Hunter Attending Unavailable Faby, Jessica Attending Unavailable Faby, Jessica Primary Care Unavailable Faby, Jessica Referring Unavailable Faby, Jessica Attending Unavailable Faby, Jessica Primary Care Unavailable Faby, Jessica Attending Unavailable Faby, Jessica Referring Unavailable Faby, Jessica Primary Care Unavailable Faby, Jessica Attending Unavailable Faby, Jessica Referring Unavailable Faby, Jessica Primary Care Unavailable CarlosBaron Attending Unavailable Faby, Jessica Referring Unavailable PROBLEMS PROBLEMS DATE TYPE CONDITION / CODE ATTENDING STATUS SOURCE 11/16/2018 Unknown I10 - Essential Marcy Allen Active [place] (primary) [facility] hypertension / Hospital I10(ICD-10) Repository 11/30/2018 Unknown M54.12 - Faby, Active [place] Radiculopathy, [facility] cervical region / Hospital M54.12(ICD-10) Repository 10/20/2018 Unknown R07.9 - Chest Carlos, Baron Active [place] pain, unspecified Community / R07.9(ICD-10) Hospital Repository 09/08/2018 Unknown Z51.81 - Encounter Faby, Active Jessica for therapeutic [facility] drug level Hospital monitoring / Repository Z51.81(ICD-10) 08/09/2018 Unknown R10.30 - Lower Winnie Samaniego Active [place] abdominal pain, [facility] unspecified / Hospital R10.30(ICD-10) Repository 08/18/2018 Unknown M89.8X1 - Other Faby, Active Jessica specified [facility] disorders of bone, Hospital shoulder / Repository M89.8X1(ICD-10) 2018 Unknown R10.13 - Faby, Active [place] Epigastric pain / [facility] R10.13(ICD-10) Hospital Repository 01/31/2018 Unknown Z12.31 - Encounter Faby, Active [place] for screening [facility] mammogram for Hospital malignant neoplasm Repository of breast / Z12.31(ICD-10) PROCEDURES PROCEDURES No Procedure Records FoundRESULTS RESULTS RENAL PROFILE Collected: 12/07/2018 Status: F Source: [place] 7:02 AM [facility] REPOSITORY TYPE CODE TESTS RESULT OUT OF RANGE REFERENCE UNITS LAB L501.0100 74-106 mg/dL Normal GLU 101 Result Comment: Fasting Glucose result from 100 to 125 mg/dL suggests IMPAIRED HOMEOSTASIS per A.D.A. criteria. Please note revised GLUCOSE reference range effective 2017. LAB L501.1000 7-18 mg/dL Normal BUN 18 LAB L501.1100 0.55-1.02 mg/dL Normal CREAT,SERUM 0.71 Result Comment: The validity of the calculated GFR AND GFRAA in patients over 70 years has not been determined. Clinical correlation is essential. LAB L501.1110 >60 mL/min Normal EST GFR 86 Result Comment: Non- GFR Calc LAB L501.1115 >60 mL/min Normal EST GFR - AA 104 Result Comment: GFR Calc LAB L501.1300 10-20 RATIO High BUN/CRE 25.3 LAB L501.1800 3.2-5.0 g/dL Normal ALB 3.8 LAB L501.2200 8.5-10.1 mg/dL CA Normal 9.0 LAB L501.2300 2.5-4.9 mg/dL Normal PHOS 3.3 LAB L501.5300 136-145 mmol/L NA Normal 139 LAB L501.5600 3.5-5.1 mmol/L K Normal 3.6 LAB L501.5900 98-107 mmol/L CL Normal 102 LAB L501.6100 21.0-32.0 mmol/L Normal CO2 30.0 Performed By: #### L500.3600 #### [facility] [address] [place], [address] CORTISOL SERUM Collected: 12/07/2018 Status: F Source: [place] 7:02 AM [facility] REPOSITORY TYPE CODE TESTS RESULT OUT OF RANGE REFERENCE UNITS LAB L509.6000 3.09-22.40 ug/dL Normal CORTISOL 10.20 Result Comment: Adult (AM) 4.30 - 22.40 ug/dL Adult (PM) 3.09 - 16.66 ug/dL Performed By: #### L509.6000 #### [facility] [address] [place], [address] CREATININE FINGERSTICK Collected: 11/07/2018 Status: F Source: [place] 1:49 PM [facility] REPOSITORY TYPE CODE TESTS RESULT OUT OF RANGE REFERENCE UNITS LAB L9100.0210 0.55-1.02 mg/dL Normal CREATININE WB 1.0 Performed By: #### L9100.0200 #### [facility] Point of Care [address] [place] [address] CTA ABDOMEN W/WO Observed: 11/07/2018 Status: F Source: [place] CONTRAST 1:43 PM [facility] REPOSITORY [facility] Imaging Services [address] [place] [address] CTA Abdomen W/WO Contrast MR#: [id number] Acct: [id number] Name: NEISHA MCNEAL Rep #: [id number] : 1950 F 68 From: Kvng Michael MD PCP: Jessica Corona DO Status: REG CLI Study: CTA Abdomen W/WO Contrast Date of Exam: 11/07/18 Exam# [id number] Ordering Dr: Marcy Allen DO STUDY: CT ABDOMEN AND PELVIS WITH CONTRAST REASON FOR EXAM: Female, 68 years old. History of renal nodule. Hypertensive disorder. RADIATION DOSAGE (If Supplied By Facility): CTDIvol = ( 25.59 ) mGy, DLP = ( 3632.57 ) mGycm TECHNIQUE: Transaxial images were obtained from the dome of the diaphragm to the symphysis pubis without oral contrast. 100 ml of Isovue 370 contrast was administered. Sagittal and coronal images were reconstructed. Individualized dose optimization techniques were used for this CT. COMPARISON: Comparison is made with prior study dated September 01, 2012. FINDINGS: The visualized lung bases are unremarkable. The visualized portions of the heart are within normal limits. Minimally dilated intrahepatic biliary ducts. There are surgical clips in the gallbladder fossa consistent with a prior cholecystectomy. The common bile duct is dilated measuring 1.3 cm in transverse dimension. Normal spleen. Normal pancreas. Normal bilateral adrenal glands. There is evidence of bilateral parapelvic renal cysts. Normal visualized stomach. Normal small intestine. There are multiple colonic diverticula consistent with diverticulosis. The appendix is visualized and appears normal. There is diffuse atherosclerotic calcification of the abdominal aorta, without a demonstrated aneurysm. Normal inferior vena cava. Normal retroperitoneum. Normal urinary bladder. There is absence of the uterus consistent with a prior hysterectomy. Normal abdominal wall. There are diffuse degenerative changes of the visualized lumbar spine. CT/CTA Abdomen W/WO Contrast IMPRESSION: Bilateral parapelvic renal cysts. Sigmoid diverticulosis. Status post cholecystectomy. Mild degree of intrahepatic biliary ductal dilatation. Dilated common bile duct. Electronically Signed: Kvng Michael MD at 15:55 EST Tel [phone], Service support , CC: Marcy Allen DO; Jessica Corona DO Senior Oracle Soa Developer: Signed MISCELLANEOUS LAB Collected: 10/31/2018 Status: F Source: [place] PROCEDURE 1:17 PM [facility] REPOSITORY Order Comment: Comments: [id number],REF,LAV Test(s) Ordered: [id number],SEP,REF,LAV TYPE CODE TESTS RESULT OUT OF RANGE REFERENCE UNITS LAB L801.1541 Normal [facility] TEST Result Comment: TEST RESULT LIMITS Metanephrines, Frac., Pl. Free Normetanephrine, Pl 54 pg/mL 0 - 145 Metanephrine, Pl <10 pg/mL 0 - 62 Concentrations of Normetanephrine between 146 and 487 pg/mL, and Metanephrine between 63 and 255 pg/mL are considered indeterminate. Follow-up biochemical testing is recommended when patient levels fall within this indeterminate range. These tests include repeat testing of plasma/urinary fractionated metanephrines and plasma catecholamines. TESTING PERFORMED AT [facility]. ORIGINAL REPORT ON FILE IN LAB CONTAINS ADDITIONAL TEST SITE INFORMATION. Performed By: #### L801.1541 #### [facility] [address] [place], [address] STRESS REPORT Observed: 10/02/2018 Status: F Source: [place] 2:54 PM [facility] REPOSITORY [facility] Cardiovascular Services [address] [place] [address] MR#: [id number] Acct: [id number] Name: NEISHA MCNEAL Rep #: [id number] : 1950 68 From: Baron Gonzalez MD Primary Care: Jessica Corona DO Status: REG CLI Ordering Dr: Sex: F C Stress Test Report Pharmacologic myocardial perfusion stress test. 68-year-old lady with a history of chest pain. Stress protocol EKG demonstrates sinus bradycardia with a rate of 57 beats minute normal intervals and noted resting blood pressure 142/84 mmHg. 0.4 mg of regadenoson was infused per usual protocol followed by rapid intravenous and flush injection continuous EKG monitoring was performed. Patient maintained sinus rhythm throughout the recording. The maximum heart rate attained was 88 bpm which was 58% maximum predicted [...] tracer noted in all areas of the myocardium. The resting images similarly demonstrate normal uptake of tracer noted in all areas of the myocardium no reversibility is noted suggest ischemia no previous infarct is noted. Gated SPECT analysis: The gated ejection fraction is noted to be 57% Conclusion: Normal pharmacologic myocardial perfusion stress test. Preserved ejection fraction. 10/02/18 1454 <Electronically signed by Baron Gonzalez MD> Date Baron Gonzalez MD CC: Jessica Corona DO Date Dictated: 10/02/18 1448 Date Transcribed: 10/02/181447 Senior Oracle Soa Developer: [place] Signed INITAL EVALUATION (1) Observed: 09/28/2018 Status: F Source: [place] - PT 1:13 PM [facility] REPOSITORY [facility] Physical Therapy [address] [place], [place] [address] Fax REHABILITATION SERVICES INITIAL EVALUATION MR#: [id number] Acct: [id number] Name: NEISHA MCNEAL Rep #: [id number] : 1950 68 From: Maliha Rudolph PT, Cert. MDT Referring Dr.: Jessica Corona DO Status: REG RCR Insurance: MEDICARE PART A B [employer] Patient's Visit Information NEISHA MCNEAL is a 68 year old F referred to Physical Therapy by Jessica Corona with a diagnosis of CERVICAL RADICULOPATHY. Date of Evaluation: 09/27/18 Physical Therapist: Maliha Rudolph - Visit Plan Frequency: 2-3x /Week Duration: 4-6 Weeks Plan: CERVICAL US. CTX (STARTING MANUALLY AND CONTINUEING OR PROGRESSING APPROPRIATE). POSTURE CORRECTION/STRENGTHENING, INSTRUCTION IN APPROPRIATE BODY MECHANICS AND ACTIVITY MODIFICATIONS. TOMI UE ROM, STRETCHING AND STRENGTHENING. HEP INSTRUCTION. - Subjective Subjective: Diagnosis: CERVICAL RADICULOPATHY. 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 Disability: NO. Present symptoms: RIGHT NECK AND SHOULDER BLADE PAIN. INTERMITTENT RARE LEFT FIFTH DIGIT TINGLING. NO LEFT SIDE SX'S. Present since: ABOUT A YEAR AGO AND HAS GOTTEN PROGESSIVELY WORSE. Pain Scale: Worst - 8/10 Least - 0/10. Currently: 6/10. Commenced as a result of: NO APPARENT REASON. Symptoms at onset: RIGHT SHOULDER BLADE. Worse: EATING. Better: GAS X, LYING IN A POSSITION THAT PUTS PRESSURE ON RIGHT NECK/SHOULDER BLADE, HAVING A BOWEL MVMT, PASSING GAS. SOMETIMES WAKES PATIENT UP AT NIGHT. Disturbed sleep: YES. Previous history/Previous treatment: NO NECK OR RIGHT SHOULDER HISTORY PRIOR TO A YEAR AGO. NO CHIROPRACTOR. NO NECK OR RIGHT SHOULDER SURGERY. NO NECK OR RIGHT SHOULDER INJECTIONS OR PHYSICAL THERAPY. Dizziness: NO. Tinnitis: NO. Nausea: YES - FROM GI PROBLEMS PER [facility] REPORT. Difficulty Swollowing: NO. Gait: INDEP GAIT WITHOUT ANY AD'S. NO FALLS EXCEPT 2010. Accidents: NO. Unexplained weight loss: NO. Imaging: There is spondylosis and disc space narrowing at the C5-6 level. 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 HTN. GERD. [...] OF THE PAIN. - Objective Sitting Posture/Standing Posture: POOR. Active Correction of posture: NE. Other Observations: INDEP GAIT AND TRANSFERS. 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 TOMI UE'S WFL. Sensory deficit: NO. ROM deficit: TOMI UE'S WFL WITH SLIGHT DEFICIT OF LEFT SHOULDER ROM AND STRENGTH COMPARED TO RIGHT. Reflexes: 2/2 TOMI UE'S. Dural Signs: NEGATIVE TOMI UE'S. Cervical Mvmt Loss: Flex: NIL. Pro: NIL. Ext: MOD. Ret: MOD TO REHANA. RSB: MIN. LSB: MIN. R Rot: MIN. L Rot: MIN. PATIENT DENIES INCREASED PAIN WITH CERVICAL ROM TESTING ALL PLANES - NE. Postural strength: POOR. Palpation: NO ACUTE TENDERNESS OR ASSYMETRICAL TIGHTNESS WITH PALPATION OF THE TOMI CERVICAL OR SHOULDER REGIONS. OTHER: SEATED CERVICAL DISTRACTION - NE - Goals Goal 1:: DECREASE C/O RIGHT NECK AND UE SX'S Goal Time Frame: 4-6 Weeks Goal 2:: IMPROVE SLEEP, READING AND DRIVING FUNCTION Goal Time Frame: 4-6 Weeks Goal 3:: INSTRUCT IN PROPHYLAXIS Goal Time Frame: 4-6 Weeks - Rehabilitation Potential Rehabilitation Potential: Questionable - Anticipated Interventions Patient/Client Instruction: Educate patient on: Condition, Plan of Care, Risk Factors, Benefits of Fitness Program For the Purpose of:: To improve self management Therapeutic Exercise to Include: Strength training, Body mechanics, Postural training, Passive ROM, Active ROM, Scapular Strength/Stabilization For the Purpose of:: To decrease pain, To increase ROM, To improve muscle performance and motor function, To increase tolerance to activity/condition/position, To improve ability of physical actions for home/community/work/leisure Cryotherapy (ice pack, ice massage): Yes Thermo therapy (hot pack): Yes Ultrasound (thermal/non thermal): Yes For the Purpose of:: To decrease pain, To increase ROM, To improve nutrient delivery to tissue Thank you for the opportunity to evaluate your patient. For Medicare and Medicare HMO plans, please review the plan of care and approve it. It will need to be FAXED BACK to us at [phone] for Medicare purposes. Please let me know if there are questions or concerns regarding this plan of care. Physician Signature: Date: <Electronically signed by Maliha Rudolph PT, Cert. MDT> 09/28/18 1313 CC: Jessica Corona DO NAZANIN Signed For Medicare only, by signing this I certify the plan of care. Physicians Signature Date RENAL ARTERY DUPLEX Observed: 09/24/2018 Status: F Source: [facility] 10:13 AM [facility] REPOSITORY [facility] Cardiovascular Services [address] [place] [address] Renal Artery Duplex Ultrasound 09/22/18 0802 MR#: [id number] Acct: [id number] Name: NEISHA MCNEAL Rep #: [id number] : 1950 68 From: Ciro Maravilla MD Attending Dr: Jessica Corona DO Status: REG CLI Ordering Dr: Jessica Corona DO Date: 09/22/18 Location: [facility] Sex: F C Admitted: Reason For Study: HTN without CHF Right Renal Artery Left Renal Artery Right renal artery ostium 100/23 Left renal artery ostium 90.7/17.7 RSV/EDV. PSV/EDV. Right renal artery proximal Left renal artery proximal PSV/EDV 82.2/18.9 PSV/EDV. 87/19.1 . Right renal artery mid 85.5/12.3 Left renal artery mid 71.5/14 PSV/EDV. PSV/EDV . Right renal artery distal 91.9/19 Left renal artery distal 80.4/18.5 PSV/EDV. PSV/EDV. Right RAR 0.84. Left RAR 0.76. Right Renal Parenchyma Left Renal Parenchyma Upper Pole Medula 31.9/7.75 Left upper pole medulla 33.3/9.47 PSV/EDV. PSV/EDV . Right upper pole medulla EDR 0.24 . Left upper pole medulla EDR 0.28 . Right upper pole medulla R.I. Left upper pole medulla R.I. 0.72 . 0.76 . UP Cortex 19.6/5.19 PSV/EDV. Upper Avila Cortx 34.7/10 PSV/EDV. Left upper pole cortex EDR 0.26 . Right upper pole cortex EDR 0.29 . Left upper pole cortex R.I. 0.73 . Right upper pole cortex R.I. 0.71 . Left lower Pole medulla 26.3/6.42 Right lower Pole medulla 40/9.78 PSV/EDV . PSV/EDV . Left lower pole medulla EDR 0.24 [...] 51.3/12.2 PSV/EDV . Right lower pole cortex R.I. 0.66 . Left hilar acceleration time 59 Right Renal Hilar m/sec. Right Hilar avg 55.2/9.58 PSV/EDV. Left Renal Dimensions Right hilar acceleration time 51 Left kidney size 10.5 cm . m/sec. Left cortical dimension 1.66 cm . Right Renal Dimensions Right kidney size 9.79 cm . Right cortical dimension 1.46 cm . Aorta Proximal abdominal aorta 1.59 x 1.76 cm . Proximal abdominal aorta peak systolic velocity is 111 cm/sec . Distal abdominal aorta 1.28 x 1.39 cm . Distal abdominal aorta peak systolic velocity is 119 cm/sec . Interpretation Summary Dimensions of the intra-abdominal aorta appear normal, without evidence of aneurysmal dilatation. Renal artery velocities are bilaterally normal. Acceleration times are normal bilaterally. There is no evidence of hemodynamically significant renal artery stenosis on either side. Renovascular resistance appears to be bilaterally elevated . The right cortical dimension is normal. The left cortical dimension is increased. Kidneys appear normal in size bilaterally. Ordering Physician: Jessica Corona Referring Physician: Jessica Corona M.D. Performed By: Mary Tena RVT and Student 09/24/18 1013 Date Ciro Maravilla MD CC: Jessica Corona DO Date Dictated: 09/22/18 0802 Date Transcribed: 09/24/18 1013 Senior Oracle Soa Developer: Signed KIDNEY AND BLADDER Observed: 09/18/2018 Status: F Source: [facility] 4:23 PM [facility] REPOSITORY [facility] Imaging Services [address] [place] [address] Kidney and Bladder MR#: [id number] Acct: [id number] Name: NEISHA MCNEAL Rep #: [id number] : 1950 F 68 From: Jorge Holland MD PCP: Jessica Corona DO Status: REG CLI Study: Kidney and Bladder Date of Exam: 09/18/18 Exam# [id number] Ordering Dr: Jessica Corona DO STUDY: RENAL ULTRASOUND - COMPLETE REASON FOR EXAM: Female, 68 years old. Blood pressure. TECHNIQUE: Ultrasound evaluation of the kidneys was performed with real-time and static cancino-scale imaging. COMPARISON: None. FINDINGS: RIGHT KIDNEY: Normal location of the right kidney, which is normal in size. The right kidney measures 10.2 cm. There is a normal cortex of the right kidney. The renal cortex measures 1.1 cm. There is no right renal mass or cyst. There are no right renal calculi. There is no right hydronephrosis. DISTAL RIGHT URETER: There is non-visualization of the distal right ureter. There is no demonstrated right ureterovesical junction calculus. There is no demonstrated right ureteral jet. LEFT KIDNEY: Normal location of the left kidney, which is normal in size. The left kidney measures 11.0 cm. There is a normal cortex of the left kidney. The renal cortex measures 1.5 cm. There are parapelvic cysts measuring up to 1.2 cm. There are no left renal calculi. There is no left hydronephrosis. DISTAL LEFT URETER: There is non-visualization of the distal left ureter. There is no demonstrated left ureterovesical junction calculus. There is no demonstrated left ureteral jet. BLADDER: The distended urinary bladder has a volume of 69 ml. The empty urinary bladder has a volume of 0 ml. There is a normal wall thickness of the distended urinary bladder. There is no demonstrated mass within the urinary bladder. There are no demonstrated bladder calculi. US/Kidney and Bladder IMPRESSION: No hydronephrosis. Parapelvic cysts on the left. Electronically Signed: Jorge Holland MD at 19:57 EDT , Service support , CC: Jessica Corona DO Senior Oracle Soa Developer: Signed 12 LEAD ELECTROCARDIOGRAM Observed: 09/12/2018 Status: F Source: [facility] 11:06 AM [facility] REPOSITORY [facility] [place] [address] 12 Lead EKG 09/09/18 0949 MR#: [id number] Acct: [id number] Name: NEISHA MCNEAL Rep #: [id number] : 1950 68 From: Ian Gudino MD Attending Dr: Status: DEP ER Ordering Dr: Anel Hunter MD Date: 09/09/18 Location: ED Sex: F C Admitted: Test Reason : HYPERTENSION Blood Pressure : / mmHG Vent. Rate : 059 BPM Atrial Rate : 059 BPM P-R Int : 178 ms QRS Dur : 094 ms QT Int : 426 ms P-R-T Axes : 021 -19 017 degrees QTc Int : 421 ms Sinus bradycardia with occasional Premature ventricular complexes Voltage criteria for left ventricular hypertrophy Abnormal ECG Confirmed by TERESE MCKAY, IAN ([id number]), senior editor CHARITY VILLEGAS ([id number]) on 09/12/2018 11:06:08 AM Referred By: Jessica Corona Confirmed By:IAN GUDINO MD 09/12/18 1106 Date Ian Gudino MD CC: Anel Hunter MD; Jessica Corona DO Signed EMERGENCY DEPARTMENT Observed: 09/09/2018 Status: F Source: [facility] SUMMARY 4:33 PM [facility] REPOSITORY [facility] Medical Records Department [address] [place] [address] Emergency Department Summary 09/09/18 0934 MR#: [id number] Acct: [id number] Name: NEISHA MCNEAL Rep #: [id number] : 1950 68 From: Anel Hunter MD [...] the evening along with hydrochlorothiazide. Patient denies vision change, nausea, or vomiting. She denies paresthesias or weakness. Physical Examination: Blood pressure is 229/93, temperature 97.8, heart rate 67, respiratory rate 17, pulse ox 96% on room air. Patient is in no acute distress and is nontoxic appearing. Head and neck examination is normal. Heart is regular rate and rhythm. Palpable pulses are noted throughout and equal. Lungs are clear with good air movement throughout. Abdomen is soft and nontender. Bowel sounds are noted. Extremity examination is unremarkable with full range of motion. Neurologic examination reveals no focal deficits. Test Results: CBC and chemistry studies unremarkable. EKG is sinus at 59 with no sign of ischemia. CT head shows chronic involutional changes. Emergency Department Course and Treatment: Patient was given 0.2 mg of p.o. clonidine. Blood pressure has slowly come down and is currently 184/78 with a heart rate of 57. Patient was discussed with her primary care physician, Dr. Corona. Patient is to continue her atenolol and hydrochlorothiazide. We will add Norvasc 2.5 mg. Patient will also be written for a few tabs of clonidine that she can take if her systolic pressure is greater than 200. Treatment Plan: [] Disposition: Discharge Impression: Hypertension, improved This note was generated with Correlix dictation software. It may contain incorrect words, spelling, and punctuation that were not noted in review of the chart prior to signing ED Disposition - Plan for ED Patient: Chief Complaint: Hypertension Referrals: Jessica Corona, DO [Primary Care Provider] - What to do if you have Problems For any increased pain, shortness of breath, bleeding, nausea or vomiting, chest pain, or any unexpected problems, contact your Primary Care Provider. Call [facility] [employer] [facility] ([phone]) or report to the closest Emergency Room. Call 911 if necessary. 09/09/18 6729 <Electronically signed by Anel Hunter MD> Date Anel Hunter MD Cosigner Signature (If Indicated): Date CC: Jessica Corona DO DISCHARGE INSTRUCTION Observed: 09/09/2018 Status: F Source: [facility] 12:07 PM [facility] RE[facility] Medical Records Department [address] [place] [address] Discharge Instruction 09/09/18 1203 MR#: [id number] Acct: [id number] Name: NEISHA MCNEAL Rep #: [id number] : 1950 68 From: Anel Hunter MD PCP: Jessica Corona DO Status: REG ER ED Disposition - Plan for ED Patient: Disposition: Home or Assisted Living Chief Complaint: Hypertension Instructions: ED HTN Established Prescriptions: Amlodipine Besylate [Norvasc] 2.5 mg PO DAILY #30 tablet Clonidine HCl [Catapres] 0.1 mg PO BID PRN #20 tablet PRN Reason: Hypertensive Emergency Referrals: Jessica Corona DO [Primary Care Provider] - 3-5 Days if not improving What to do if you have Problems For any increased pain, shortness of breath, bleeding, nausea or vomiting, chest pain, or any unexpected problems, contact your Primary Care Provider. Call [facility] ([phone]) or report to the closest Emergency Room. Call 911 if necessary. 09/09/18 1207 <Electronically signed by Anel Hunter MD> Date Anel Hunter MD Cosigner Signature (If Indicated): Date CC: Jessica Corona DO CBC W/DIFF, AUTOMATED Collected: 09/09/2018 Status: F Source: [facility] 9:38 AM [facility] REPOSITORY TYPE CODE TESTS RESULT OUT OF RANGE REFERENCE UNITS LAB L100.1000 4.4-11.0 K/mm3 Normal WBC 5.8 LAB L100.1200 4.2-5.4 M/mm3 Normal RBC 4.67 LAB L100.1300 12.0-15.0 g/dl Normal HGB 14.2 LAB L100.1400 37-47 % Normal HCT 44.0 LAB L100.1500 81-99 fL Normal MCV 94.2 LAB L100.1600 27.0-32.0 pg Normal MCH 30.4 LAB L100.1700 32-36 g/gl Normal MCHC 32.3 LAB L100.1810 11.6-14.6 % Normal RDW CV 13.3 LAB L100.1820 35.1-43.9 fl High RDW SD 45.5 LAB L100.1900 150-450 K/mm3 Normal PLT 251 LAB L100.2000 6.2-12.0 fl Normal MPV 9.4 LAB L100.2100 47-70 % Normal NEUT% 66.3 LAB L100.2200 19-41 % Normal LY% 20.9 LAB L100.2300 0-10 % Normal MONO% 6.6 LAB L100.2400 0-5 % High EO% 5.5 LAB L100.2500 0-1 % Normal BASO% 0.5 LAB L100.2550 0.0-0.9 % Normal IM GRAN % 0.200 Result Comment: IG% - Immature Granulocytes (promyelocytes, myelocytes and metamyelocytes) > 1% indicates that a LEFT SHIFT is Present. LAB L100.2620 2.0-7.7 X10 3/uL Normal Absolute Neut 3.9 LAB L100.2720 0.83-4.51 X10 3/ul Normal Absolute Lymph 1.21 Performed By: #### L100.0100 #### [facility] [address] [place], [place], [id number] BASIC METABOLIC Collected: 09/09/2018 Status: F Source: [facility] PROFILE ([facility]) 9:38 AM [facility] REPOSITORY TYPE CODE TESTS RESULT OUT OF RANGE REFERENCE UNITS LAB L501.0100 74-106 mg/dL High GLU 110 Result Comment: Fasting Glucose result from 100 to 125 mg/dL suggests IMPAIRED HOMEOSTASIS per A.D.A. criteria. Please note revised GLUCOSE reference range effective 2017. LAB L501.1000 7-18 mg/dL Normal BUN 14 LAB L501.1100 0.55-1.02 mg/dL Normal CREAT,SERUM 0.74 Result Comment: The validity of the calculated GFR AND GFRAA in patients over 70 years has not been determined. Clinical correlation is essential. LAB L501.1110 >60 mL/min Normal EST GFR 83 Result Comment: Non- GFR Calc LAB L501.1115 >60 mL/min Normal EST GFR - AA 100 Result Comment: GFR Calc LAB L501.1255 ml/min Normal Estimated CRCL 45.20 LAB L501.1300 10-20 RATIO Normal BUN/CRE 19.0 LAB L501.2200 8.5-10 mg/dL Normal .1 CA 9.1 LAB L501.5300 136-14 mmol/L Normal 5 NA 139 LAB L501.5600 3.5-5. mmol/L Normal 1 K 3.7 LAB L501.5900 98-107 mmol/L Normal CL 105 LAB L501.6100 21.0-3 mmol/L Normal 2.0 CO2 27.0 LAB L501.6200 5-15 Normal GAP 7 Performed By: #### L500.2500 #### [facility] [address] [facility] [place], [address] BRAIN/HEAD WITHOUT Observed: 09/09/2018 Status: F Source: [facility] CONTRAST 9:31 AM [facility] REPOSITORY [facility] Imaging Services [address] [place] [address] Brain/Head without Contrast MR#: [id number] Acct: [id number] Name: NEISHA MCNEAL Rep #: [id number] : 1950 F 68 From: Italo Brown DO PCP: Jessica Corona DO Status: REG ER Study: Brain/Head without Contrast Date of Exam: 09/09/18 Exam# [id number] Ordering Dr: Anel Hunter MD STUDY: CT BRAIN WITHOUT CONTRAST REASON FOR EXAM: Female, 68 years old. Headache and hypertension RADIATION DOSAGE (If Supplied By Facility): CTDIvol = ( 44.99 ) mGy, DLP = ( 745.49 ) mGycm TECHNIQUE: Transaxial CT imaging of the brain was performed without administration of intravenous contrast material. # of Images: 234 Individualized dose optimization techniques were used for this CT. COMPARISON: 12/04/2010 FINDINGS: Normal soft tissue structures. Normal calvarium. There is mild cerebral atrophy with widening of the extra- axial spaces and ventricular dilatation. There are areas of decreased attenuation within the white matter tracts of the supratentorial brain, consistent with microvascular disease changes. Normal basal ganglia and thalami. Normal brainstem. There is mild cerebellar atrophy. There is no intracranial hemorrhage. There are no findings of an acute ischemic infarction. Normal visualized paranasal sinuses. CT/Brain/Head without Contrast IMPRESSION: Chronic involutional changes of the brain. Electronically Signed: Italo Brown DO at 10:22 EDT Tel , Service support , CC: Anel Hunter MD; Jessica Corona DO Senior Oracle Soa Developer: Signed BASIC METABOLIC Collected: 09/08/2018 Status: F Source: [facility] PROFILE (BMP) 10:49 AM [facility] REPOSITORY TYPE CODE TESTS RESULT OUT OF RANGE REFERENCE UNITS LAB L501.0100 74-106 mg/dL Normal GLU 101 Result Comment: Fasting Glucose result from 100 to 125 mg/dL suggests IMPAIRED HOMEOSTASIS per A.D.A. criteria. Please note revised GLUCOSE reference range effective 2017. LAB L501.1000 7-18 mg/dL Normal BUN 13 LAB L501.1100 0.55-1.02 mg/dL Normal CREAT,SERUM 0.61 Result Comment: The validity of the calculated GFR AND GFRAA in patients over 70 years has not been determined. Clinical correlation is essential. LAB L501.1110 >60 mL/min Normal EST GFR 102 Result Comment: Non- GFR Calc LAB L501.1115 >60 mL/min Normal EST GFR - AA 124 Result Comment: GFR Calc LAB L501.1300 10-20 RATIO High BUN/CRE 21.2 LAB L501.2200 8.5-10.1 mg/dL CA Normal 9.2 LAB L501.5300 136-145 mmol/L NA Normal 140 LAB L501.5600 3.5-5.1 mmol/L High K 5.3 LAB L501.5900 98-107 mmol/L CL Normal 105 LAB L501.6100 21.0-32.0 mmol/L Normal CO2 30.0 LAB L501.6200 5-15 Normal GAP 5 Performed By: #### L500.2500 #### [facility] [address] [place], [address] FINAL SURGICAL Observed: 08/18/2018 Status: F Source: [facility] PATHOLOGY REPORT 2:32 PM [facility] [place] REPOSITORY . Pathology Reports Accession: Collected Date/Time: Received Date/Time: Pathologist: [id number] 08/18/2018 14:32 EDT 08/18/2018 14:32 EDT DO JENNIFER MCGILL Final Surgical Pathology Report DIAGNOSIS: A) DUODENUM: - NO SPECIFIC HISTOPATHOLOGIC CHANGES. B) GASTRIC ANTRUM: - REACTIVE GASTROPATHY. - Negative for H. Pylori. C) GASTRIC: - FRAGMENTS CONSISTENT WITH FUNDIC GLAND POLYP. D) G-E JUNCTION: - JUNCTIONAL MUCOSA WITH NO SPECIFIC HISTOPATHOLOGIC CHANGES. - Negative for intestinal metaplasia. COMMENT: [facility]# [id number] CLINICAL INFORMATION: CHRONIC NAUSEA SPECIMEN: A DUODENUM, BX - R/O CELIAC B STOM, BX - ANTRUM C STOM, BX - GASTRIC POLYPS D ESOPH, BX - G-E JUNCTION - DOMINGUEZ'S GROSS DESCRIPTION: A. Received in formalin labeled A are 3 ramirez glistening soft tissues ranging from 0.2-0.3 cm. TS -1 B. Received in formalin labeled B are 2 ramirez glistening soft tissues averaging 0.4 cm. TS -1 C. Received in formalin labeled C are 3 ramirez glistening soft tissues ranging from 0.1-0.3 cm. TS -1 D. Received in formalin labeled D are 2 ramirez glistening soft tissues averaging 0.2 cm. TS -1 Dictated by Manuela HILLS ([facility]) MICROSCOPIC DESCRIPTION: Slides reviewed. Electronically Signed by Pathology Report verified by [facility] Electronically signed by JENNIFER MCGILL DO Sign out Date: 08/21/2018 13:18 Performing Lab: [facility], [address] [place] [address] Performed By: #### SPFR #### [place] [address] Observed: 08/18/2018 Status: F Source: [facility] H.PYLORI SCREEN(CLOTEST) 10:51 AM [facility] H.PYLORI SCREEN(CLOtest) CLOtest 1 hour _NEGATIVE 08/18/18.1216.BKO. 3 hour _NEGATIVE 08/18/18.1416.BKO. 24 HOURS _NEGATIVE 08/19/18.1340.KLS. CLOtest USE IS INTENDED FOR THE PRESUMPTIVE DIAGNOSIS OF H. PYLORI INFECTION. IF THERE ARE FACTORS THAT MIGHT ADVERSELY AFFECT THE PERFORMANCE OF THE CLOtest, CONSIDER OTHER DIAGNOSTIC MEASURES SUCH SEROLOGY TO EXCLUDE A DIAGNOSIS OF H. PYLORI IN PATIENTS WITH CLINICAL SYMPTOMS OF GASTROINTESTINAL DISEASE. Performed By: #### [id number] #### [facility],[address] [place], [place] [id number] OPERATIVE PROCEDURES Observed: 08/18/2018 Status: F Source: [facility] 8:12 AM [facility] OPERATIVE REPORT NAME ACCOUNT SEX AGE ADMIT DISCHARGE PT MED. RECORD# NUMBER DATE DATE TYPE ELIZABET, [id number] F 68 08/18/18 08/18/18 2 NEISHA Jalloh [id number] ROOM: [facility] DATE OF : 1950 DICTATING PHYSICIAN: Susu Valerio DATE OF SURGERY: August 18, 2018. SURGEON: Susu Valerio M.D. INVOICE MACHINE OPERATOR: ANESTHESIOLOGIST: ANESTHETIC: Please see anesthesia notes for further details. PREOPERATIVE DIAGNOSIS: (1) Heartburn/gastroesophageal reflux disease. (2) Nausea. (3) Diarrhea. POSTOPERATIVE DIAGNOSIS: (1) Normal duodenum. (2) Antral gastritis. (3) Gastric polyps. (4) GE junction 40 cm. (5) Normal esophagus. OPERATION PERFORMED: EGD with biopsies. COMPLICATIONS: None. ESTIMATED BLOOD LOSS: None. SPECIMENS: Biopsies from the duodenum, antrum, gastric polyps, GE-junction. PADMINI test was sent. DESCRIPTION OF OPERATION: After risks, benefits, and alternatives of the procedure were thoroughly explained, informed consent was obtained. Under direct visualization the video endoscope was introduced through the mouth and advanced to the second portion of the duodenum without limitations. The instrument was slowly withdrawn as the mucosa was fully examined. FINDINGS: There was normal-appearing mucosa found in the entire duodenum. Biopsies were taken to rule out for celiac disease. Scope was slowly withdrawn. There was inflammation/irritation noted in the gastric antrum. Multiple biopsies were taken to rule out for H. pylori. PADMINI test was sent. The scope was retroflexed. The mucosa appeared normal but there were multiple diminutive gastric polyps noted. Page 1 of 2 NEISHA MCNEAL Operative Report Multiple biopsies were taken from various polyps. The scope was straightened and slowly withdrawn. The GE-junction was noted at 40 cm. The Z-line was slightly irregular so multiple biopsies were taken to rule out for Dominguez's esophagus. The esophagus was otherwise normal. The instrument was withdrawn and the procedure was concluded. Vital signs were monitored constantly throughout the entire procedure. RECOMMENDATIONS: (1) Patient has a contact number available for emergencies. The signs and symptoms of potential delayed complications were discussed with the patient. Return to normal activities tomorrow. Written discharged instructions were provided to the patient. (2) Continue present medications. (3) Resume previous diet. (4) Await pathology results. (5) Patient did have biopsies taken today. Patient is to call my office in 2 weeks if she has not received test results. Dictated By: Susu Valerio MD 08/18/18 10:18 JOB #: [id number] Transcribed By: tequila 08/18/18 20:41 Electronically signed by: E-SIGN: DR. VALERIO 09/01/18 07:40 Page 2 of 2 NEISHA MCNEAL Operative Report ABD INC DECUB Observed: 06/21/2018 Status: F Source: [facility] AND/OR ERECT 9:12 AM [facility] REPOSITORY [facility] Imaging Services [address] [place] [address] Abd Inc Decub and/or Erect MR#: [id number] Acct: [id number] Name: NEISHA MCNEAL Rep #: [id number] : 1950 F 68 From: Tapan Gore MD PCP: Jessica Corona DO Status: REG CLI Study: Abd Inc Decub and/or Erect Date of Exam: 06/21/18 Exam# [id number] Ordering Dr: Winnie Samaniego STUDY: X-RAY - ABDOMEN/PELVIS REASON FOR EXAM: Female, 68 years old. Groin pain TECHNIQUE: AP supine and upright views of the abdomen and pelvis. COMPARISON: None. FINDINGS: Normal visualized lung bases. There is an unremarkable bowel gas pattern. There is no demonstrated free abdominal air. The visualized liver, spleen and kidneys are grossly normal in size and morphology. Surgical clips are seen in the right upper quadrant of the abdomen. There is a transitional vertebrae of the lumbosacral junction. There are mild degenerative changes of the hip joints. RAD/Abd Inc Decub and/or Erect IMPRESSION: 1. There is no evidence of ileus, obstruction, or free intraperitoneal air. 2. There are surgical clips in the right upper quadrant of the abdomen most likely associated with cholecystectomy. 3. There is a transitional vertebrae of the lumbosacral junction. There are mild degenerative changes of the left and right hip joints. Electronically Signed: Tapan Gore MD at 16:59 EDT , Service support , CC: Winnie Samaniego CHOKE REAMER; Jessica Corona DO Senior [employer] Soa Developer: Signed CERV SPINE 2 OR 3 Observed: 06/02/2018 Status: F Source: [facility] VIEWS 8:19 AM [facility] REPOSITORY [facility] Imaging Services [facility] [place] [address] Cerv Spine 2 or 3 Views MR#: [id number] Acct: [id number] Name: NEISHA MCNEAL Rep #: [id number] : 1950 F 68 From: Jamil Paulson MD PCP: Jessica Corona DO Status: REG CLI Study: Cerv Spine 2 or 3 Views Date of Exam: 06/02/18 Exam# [id number] Ordering Dr: Jessica Corona DO STUDY: X-RAY - CERVICAL SPINE REASON FOR EXAM: Female, 68 years old. Neck pain. TECHNIQUE: 3 view(s) of the cervical spine were obtained. COMPARISON: None FINDINGS: There are degenerative changes of the anterior atlantoaxial articulation. Normal odontoid process. There is straightening of the normal lordotic curve, a nonspecific finding, which may be due to positioning or which might be due to muscle spasm. There is spondylosis and disc space narrowing at the C5-6 level. Other disc space heights are intact. The soft tissue structures are unremarkable. RAD/Cerv Spine 2 or 3 Views IMPRESSION: Degenerative changes, as above.. No demonstrated fracture or subluxation. Electronically Signed: Jamil Paulson MD at 7:12 EDT , Service support , CC: Jessica Corona DO Senior Oracle Soa Developer: Signed L/S SPINE MIN 4 Observed: 05/25/2018 Status: F Source: [facility] VIEWS 9:43 AM [facility] REPOSITORY [facility] Imaging Services [address] [place] [address] L/S Spine Min 4 Views MR#: [id number] Acct: [id number] Name: NEISHA MCNEAL Rep #: [id number] : 1950 F 68 From: Mikayla Guerrier MD PCP: Jessica Corona DO Status: REG CLI Study: L/S Spine Min 4 Views Date of Exam: 05/25/18 Exam# [id number] Ordering Dr: Addie Mallory STUDY: X-RAY - LUMBAR SPINE REASON FOR EXAM: Female, [...] with minimal spondylitic endplate changes. Hypertrophic facet arthrosis primarily at L4-5 and L5-S1 bilaterally. Aortic calcifications. Status post cholecystectomy. RAD/L/S Spine Min 4 Views IMPRESSION: Normal alignment of the lumbar spine without fracture deformity. Normal variation of a transitional L5 with a sacral articulation on the left. Advanced disc narrowing at L4-5. Mild to moderate narrowing at other lumbar levels. Facet arthrosis at L4-5 and L5-S1. Electronically Signed: Mikayla Guerrier MD at 21:17 EDT , Service support , CC: DEYSI Mallory; Jessica Corona DO Senior Oracle Soa Developer: Signed DEXA BONE DENSITY Observed: 05/09/2018 Status: F Source: [facility] STUDY 8:25 AM [facility] REPOSITORY [facility] Imaging Services [address] [place] [address] Dexa Bone Density Study MR#: [id number] Acct: [id number] Name: ELIZABETNEISHA Shubham Rep #: [id number] : 1950 F 68 From: Kvng Michael MD PCP: Jessica Corona DO Status: REG CLI Study: Dexa Bone Density Study Date of Exam: 05/09/18 Exam# [id number] Ordering Dr: Jessica Corona DO STUDY: DUAL ENERGY X-RAY ABSORPTIOMETRY / DXA REASON FOR EXAM: Female, 68 years old. The patient is postmenopausal. Loss of height. TECHNIQUE: Bone Mineral Density (BMD) measurements of lumbar spine and bilateral hips were obtained. COMPARISON: Comparison is made with prior study dated February 10, 2011. FINDINGS: Lumbar Spine (L1-L4): g/cm2 (1.404) / T-score (2.0) / Z-score (3.7) Findings are suggestive of normal bone density with a low fracture risk. Left Femur Total: g/cm2 (1.260) / T-score (2.0) / Z-score (3.5) Left Femoral Neck: g/cm2 (1.234) / T-score (1.4) / Z- score (3.1) Right Femur Total: g/cm2 (1.117) / T-score (0.9) / Z- score (2.3) Right Femoral Neck: g/cm2 (1.078) / T-score (0.3) / Z- score (2.0) The T-Scores on the most recent prior examination were: Lumbar Spine (L1-L4): There has been improvement of bone density since the previous examination. Left Femur Total: which represents an improvement of 4%. Right Femur Total: which represents a worsening of 2.9%. BD/Dexa Bone Density Study IMPRESSION: The patient is considered normal as outlined below according to World Kuldip Organization (WHO) criteria with a low fracture risk. There [...] osteopenia may be graded as follows: Mild -1 through -1.5 Moderate -1.6 through -2.0 Severe -2.1 through -2.4 The Z-score is the number of standard deviations above or below age-matched controls. A Z-score of less than -1.5 would be considered abnormal. References: 1. NIH Osteoporosis and Related Bone Diseases http://www.osteo.org 2. International Society for Clinical Densitometry http://www.iscd.org 3. National Osteoporosis Foundation http://www.nof.org Electronically Signed: Kvng Michael MD at 8:25 EDT Tel [phone], Service support , CC: Jessica Corona DO Senior [employer] Soa Developer: Signed LIVER PROFILE Collected: 03/08/2018 Status: F Source: [facility] 6:56 AM [facility] REPOSITORY TYPE CODE TESTS RESULT OUT OF RANGE REFERENCE UNITS LAB L501.1500 6.4-8.2 g/dL Normal T PROT 7.5 LAB L501.1800 3.2-5.0 g/dL Normal ALB 3.8 LAB L501.1950 2.2-4.2 g/dL Normal GLOB 3.7 LAB L501.4100 15-37 U/L Normal AST 19 LAB L501.4305 45-117 U/L Normal ALK P 67 LAB L501.4405 13-56 U/L Normal ALT 24 LAB L501.4600 0.20-1.00 mg/dL Normal T BILI 0.50 LAB L501.4700 0.00-0.30 mg/dL Normal D BILI 0.12 Performed By: #### L500.3400, L500.4100, L501.94898, L501.9520, L506.0400 #### [facility] [address] [place], [address] LIPID PROFILE Collected: 03/08/2018 Status: F Source: [facility] 6:56 AM [facility] REPOSITORY TYPE CODE TESTS RESULT OUT OF RANGE REFERENCE UNITS LAB L501.4900 200 mg/dL High CHOL 300 Result Comment: <200 mg/dL Desirable 200-240 mg/dL Borderline >240 mg/dL High Risk LAB L501.5000 mg/dL Normal TRIG 168 Result Comment: The drugs N-Acetylcysteine and Metamizole may falsely depress this assay. Serum Triglycerides Reference Interval Normal <150 mg/dL Borderline high 150 - 199 mg/dL High 200 - 499 mg/dL Very High > or = 500 mg/dL LAB L501.6400 mg/dL Normal HDL 62 Result Comment: The drugs N-Acetylcysteine and Metamizole may falsely depress this assay. Reference Range HDL <40 mg/dL Low HDL Cholesterol HDL >or= 60 mg/dL High HDL Cholesterol LAB L501.6500 0-130 mg/dL High LDL 204 LAB L501.6600 5-40 mg/dL Normal VLDL 34 Performed By: #### L500.3400, L500.4100, L501.77365, L501.9520, L506.0400 #### [facility] [address] [facility] [place], [place], [address] FREE T3 Collected: 03/08/2018 Status: F Source: [facility] 6:56 AM [facility] REPOSITORY TYPE CODE TESTS RESULT OUT OF RANGE REFERENCE UNITS LAB L501.47007 2.18-3.98 pg/mL Normal FREE T3 2.7 Performed By: #### L500.3400, L500.4100, L501.10313, L501.9520, L506.0400 #### [facility] Laboratory [address] [facility] [place], [place], [address] THYROID STIM HORMONE Collected: 03/08/2018 Status: F Source: [facility] ([facility]) 6:56 AM [facility] REPOSITORY TYPE CODE TESTS RESULT OUT OF RANGE REFERENCE UNITS LAB L501.9520 0.358-3.74 uIU/mL Normal TSH 3.42 Performed By: #### L500.3400, L500.4100, L501.85979, L501.9520, L506.0400 #### [facility] Laboratory [address] [facility] [place], [address] T4 FREE DIRECT Collected: 03/08/2018 Status: F Source: [facility] 6:56 AM [facility] REPOSITORY TYPE CODE TESTS RESULT OUT OF RANGE REFERENCE UNITS LAB L506.0400 0.76-1.46 ng/dL Normal T4 FREE 0.97 DIRECT Performed By: #### L500.3400, L500.4100, L501.95219, L501.9520, L506.0400 #### [facility] Laboratory [address] [place], [address] MRCP ABDOMEN WITHOUT Observed: 02/14/2018 Status: F Source: [facility] CONTRAST 12:37 PM [facility] REPOSITORY [facility] Imaging Services [address] [place] [address] MRCP Abdomen without Contrast MR#: [id number] Acct: [id number] Name: NEISHA MCNEAL Rep #: [id number] : 1950 F 68 From: Vj Rajput MD PCP: Jessica Corona DO Status: REG CLI Study: MRCP Abdomen without Contrast Date of Exam: 02/14/18 Exam# [id number] Ordering Dr: Jessica Corona DO STUDY: MR CHOLANGIOPANCREATOGRAPHY (MRCP) REASON FOR EXAM: Female, 68 years old. Nausea, right neck and scapular pain. Symptoms off and on x 1 year, now more frequent. Gallbladder removed in 1991 TECHNIQUE: Standard MRCP technique was utilized. COMPARISON: CT 09-01-12 FINDINGS: There are calcifications of the abdominal aorta. This is consistent for atherosclerotic disease. There is no abdominal aortic aneurysm. Bilateral peripelvic renal cysts. Gall Bladder: Gall bladder is surgically absent. Cystic duct: Normal with no demonstrated fixed filling defect. Intrahepatic ducts: Mild dilation of the intrahepatic ducts. Common hepatic duct: Normal with no demonstrated fixed filling defect, dilation or stricture. Common bile duct: There is dilation of the common bile duct. A common bile duct stone is not seen. Diameter of 13 mm. Pancreatic duct: Normal with no demonstrated fixed filling defect, dilation or stricture. MRI/MRCP Abdomen without Contrast IMPRESSION: There is dilation of the common bile duct. A common bile duct stone is not seen. Electronically Signed: Vj Rajput MD at 23:25 EDT , Service support , CC: Jessica Corona DO Senior Oracle Soa Developer: Signed ABDOMEN LIMITED Observed: 2018 Status: F Source: [facility] 9:48 AM [facility] REPOSITORY [facility] Imaging Services [address] [place] [address] [place] [address] Abdomen Limited MR#: [id number] Acct: [id number] Name: NEISHA MCNEAL Rep #: [id number] : 1950 F 68 From: Kvng Michael MD PCP: Jessica Corona DO Status: REG CLI Study: Abdomen Limited Date of Exam: 02/03/18 Exam# [id number] Ordering Dr: Jessica Corona DO STUDY: ABDOMINAL ULTRASOUND - RIGHT UPPER QUADRANT REASON FOR VISIT: Female, 68 years old. Epigastric pain. TECHNIQUE: Ultrasound evaluation of the right upper quadrant was performed with real-time and static romero-scale imaging. TECHNICAL QUALITY: Adequate. COMPARISON: None. FINDINGS: Liver: The liver measures 15.5 cm. There is increased echogenicity consistent with fatty infiltration. The bile ducts are within normal limits. There is hepatic color flow. The direction of portal flow is hepatopetal. There is no demonstrated mass lesion. Gallbladder: The patient is status post cholecystectomy. Common Bile Duct (C.B.D.): The common bile duct measures 10 mm. Pancreas: Normal size of the head, body and tail of the pancreas. There is normal echogenicity of the pancreas. There is no demonstrated pancreatic mass or cyst. Right Kidney: Normal size of the right kidney. The right kidney measures 9.7 cm x 4.2 cm x 5.0 cm. Normal renal cortex. The right cortex measures 1.3 cm. There is no demonstrated renal mass or cyst. There is no right hydronephrosis. US/Abdomen Limited IMPRESSION: Fatty infiltration of the liver. Status post cholecystectomy. Electronically Signed: Kvng Michael MD at 13:52 EDT Tel [phone], Service support , CC: Jessica Corona DO Senior Oracle Soa Developer: Signed SCREENING MAMM (CAD), Observed: 01/31/2018 Status: F Source: [facility] BILAT 1:17 PM [facility] REPOSITORY [facility] Imaging Services [address] [place] [address] SCREENING MAMM (CAD), BILAT MR#: [id number] Acct: [id number] Name: NEISHA MCNEAL Rep #: [id number] : 1950 F 67 From: Kvng Michael MD PCP: Jessica Corona DO Status: REG CLI Study: SCREENING MAMM (CAD), BILAT Date of Exam: 01/31/18 Exam# [id number] Ordering Dr: Jessica Corona DO MAMMOGRAPHY - BILATERAL SCREENING REASON FOR EXAM: Female, 67 years old. Routine annual screening examination. PERTINENT HISTORY: Sisters with breast cancer. TECHNIQUE: Digital bilateral breast stacy (3D mammographic acquisition) in the CC and MLO projections. 2-D mediolateral oblique (MLO) and craniocaudad (CC) views of both breasts were obtained. CAD: Full Field Digital Mammography with Computer Added Detection was performed. COMPARISON: Comparison is made with prior study dated June 14, 2017 and August 28, 2015. FINDINGS: Breast Composition: There are scattered areas [...] screening mammogram. Yearly follow-up mammogram recommended. (A) ASSESSMENT CATEGORY: BIRADS Category 2: Benign. A letter regarding these results will be sent to the patient by the facility within 30 days. Approximately 10% of breast cancers are not detected by mammography. A normal mammogram should not delay biopsy of a clinically suspicious abnormality. [id number] Electronically Signed: Kvng Michael MD at 14:26 EDT Tel [phone], Service support , CC: Jessica Corona DO Senior Oracle Soa Developer: Signed ALLERGIES ALLERGIES DATE TYPE / CODE NAME / CODE REACTION SEVERITY SOURCE 09/09/2018 Drug adhesive/F0060 blisters Unknown Jessica Allergy/109435085( 11964(RXNORM) [facility]) Hospital Repository 09/09/2018 Drug levofloxacin/F TENDONITIS Unknown Jessica Allergy/843155706( 511602232([facility] SNOMED CT) [facility] Hospital Repository 09/09/2018 Miscellaneous NARCOTICS Nausea/Vom/Diar Unknown [place] Allergy/334019367( liane [facility]) [facility] Repository Drug LEVAQUIN/27612 U Osmar Pomerene Allergy/464747853( 604(RXNO) [facility]) Hospital Repository Drug PERCOCET/94975 U Osmar Pomerene Allergy/498994476( 148(RXNO) [facility]) [facility] Repository Drug VICODIN/899255 U Osmar Pomerene Allergy/727208400( 76(RXNO) [facility]) Hospital Repository Drug DEMEROL/036717 U Osmar Pomerene Allergy/053998671( 47(RXNORM) [facility] Drug MAGNESIUM U Osmar Lechuga Allergy/956803739( SULFATE/786844 [facility] 56(RXNORM[facility] Hospital Repository ENCOUNTERS ENCOUNTERS ADMIT/DISCHARGE ACCOUNT ADMITTING ENCOUNTER LOCATION SOURCE NUMBER CLASS 12/07/2018 [id number] Ambulatory [place] Jessica 5 [facility] ing:LAB.FUTUR Repository E 11/07/2018 [id number] Ambulatory [place] 1 [facility] ing:CT Repository 11/06/2018 5266 Ambulatory Building:[facility] Practices Repository 11/02/2018 [id number] Ambulatory [place] Jessica 5 [facility] ing:LAB.FUTUR Repository E 10/31/2018 [id number] Ambulatory Jessica [place] 5 [facility] ing:POLAB3 Repository 10/31/2018 [id number] Ambulatory Jessica [place] 7 [facility] ing:POLAB3 Repository 10/04/2018/ [id number] Ambulatory [place] Jessica 8 2 [facility] ing:PT Repository 10/02/2018 [id number] Ambulatory [place] 9 [facility] ing:CVS Repository 10/02/2018 [id number] Ambulatory BMSBuilding:W [place] 0 [facility] Repository 09/22/2018 [id number] Ambulatory Jessica Jessica 7 [facility] ing:CVS Repository 09/18/2018 [id number] Ambulatory [place] 8 [facility] ing:US Repository 09/09/2018/ [id number] Emergency [place] 8 2 [facility] ing:ED Repository 09/08/2018 [id number] Ambulatory Jessica [place] 9 [facility] ing:LABSPEC Repository 08/18/2018/ [id number] HLIVKO, Ambulatory BuildinR Osmar Lechuga 8 SUSU MCKAY oom: [address] Repository 06/21/2018 [id number] Ambulatory [place] 1 [facility] ing:HPRAD Repository 06/02/2018 [id number] Ambulatory [place] Jessica 3 [facility] ing:HPRAD Repository 05/25/2018 [id number] Ambulatory Jessica Jessica 7 [facility] ing:HPRAD Repository 05/09/2018 [id number] Ambulatory [place] 9 [facility] ing:OPBD Repository 03/08/2018 [id number] Ambulatory [place] Jessica 5 [facility] ing:LAB.FUTUR Repository E 02/14/2018 [id number] Ambulatory [place] Jessica 4 [facility] ing:MRI Repository 2018 [id number] Ambulatory [place] Jessica 3 [facility] ing:USHP Repository 01/31/2018 [id number] Ambulatory Jessica [place] 1 [facility] ing:BI Repository PAYERS PAYERS ENCOUNTER GUARANTOR PAYER SUBSCRIBER SOURCE 12/07/2018 TRAVIS Elam Primary NEISHA A [place] [id number] N Insurance:MEDICARE BEERYDOB: [facility] PART A olicy Number: [id number], [place] [id number] Repository [address]Tnp: (330) Date:2018-11-03 [phone] () 12/07/2018 Secondary NEISHA A Jessica Insurance:[facility]MANA [facility] [id number] Hospital Number: Repository [id number] Date:1749-02-29RX[address] [address]LX: 12/07/2018 Tertiary NOT GIVENUNK [place] Insurance:SELF PAY [facility] Number: Effective Repository Date:2018-11-03 11/07/2018 TRAVIS lEam Primary NEISHA A Jessica [id number] N Insurance:MEDICARE BEERYDOB: [facility] PART A olic Number: [id number], [place] [id number] Repository [address]Myd: (330) Date:2018-10-31 [phone] () 11/07/2018 Secondary NEISHA A [place] Insurance:HUMANA BEERYD: [facility] [id number] Hospital Number: Repository [id number] Date:0358-08-85GD [address] [place] [address]FR: 11/07/2018 Tertiary NOT GIVENUNK [place] Insurance:SELF PAY [facility]: Effective Repository Date:2018-10-31 11/06/2018 Neisha A Primary Neisha A OHIP Practices BeeryDOB: Insurance:MedicarePoli BeeryDOB: Repository [id number] cy Number: [id number] [facility] [id number] 2 [facility] Date:6034-62-63Nmyv [place], [place] Name:[place], [place] [address]Uyz: [phone]) 555015Ywtgffdd, [place] [address]Cga: [address]WP: (HP) () [phone] () 11/06/2018 Secondary Neisha A OHIP Practices Insurance:Humana/Suppl BeeryDOB: Repository e[facility] [id number] Number: 2 [facility] [id number] [facility] Date:2131-01-93[place]qrgOr[place], [place] Name:[address] [address]Kcf: (242) [id number] [place] [address] [phone] (HP) 74[address]RO: 11/06/2018 Tertiary Neisha A OHIP Practices Insurance:CBCA/CCH, BeeryDOB: Repository [facility]: [id number] 2 [facility] Date:2005-11-21 - [facility] 7536-08-15[place], [place] Name:[address] [address]Ens: ([phone]) [place], [place] [phone] (HP) [address]EX: 11/06/2018 Tertiary Neisha A OHIP Practices Insurance:Health BeeryDOB: Repository [employer] [id number] Number: 2 [place] [id number] Chapel Date:2009-01-19 - [place], [place] 4132-57-73Gqay [address]Jgg: (017) Name:[facility] [address]ZF [phone] (HP) NOT USE, ADD [place], [place] [address]LL: 11/06/2018 Tertiary Neisha A OHIP Practices Insurance:Medical BeeryDOB: Repository [facility] [id number] Number: 2 [place] [id number] Chapel Date:2011-02-19 - [place] 7860-58-49Dbxt [address]Kwc: (755) Name:[facility] [phone] () [place], [place] [address]UV: 11/02/2018 TRAVIS Elam Primary NEISHA A Jessica [id number] N Insurance:MEDICARE BEERYDOB: Community [facility] [place] PART A BPolicy Number: [id number], [place] [id number] Repository [address]Pyf: 330) Date:2018-11-02 [phone] () 11/02/2018 Secondary NEISHA A Jessica Insurance:HUMANA BEERYDOB: [facility] [id number] Hospital Number: Repository [id number] Date:8976-62-57VM[address] [address]GU: 11/02/2018 Tertiary NOT GIVENUNK Jessica Insurance:SELF PAY [facility] Number: Effective Repository Date:2018-11-02 10/31/2018 TRAVIS Elam Primary NEISHA A Jessica [id number] N Insurance:MEDICARE BEERYDOB: Community [facility] [place] PART A BPolicy Number: [id number], [place] [id number] Repository [address]Jjh: 330) Date:2018-10-31 [phone] (HP) 10/31/2018 Secondary NEISHA A [place] Insurance:HUMANA BEERYDOB: Community COMMERCIALPolicy [id number] Hospital Number: Repository [id number] Date:1708-88-42VG[address] [address]FG: 10/31/2018 Tertiary NOT GIVENUNK [place] Insurance:SELF PAY [facility] Hospital Number: Effective Repository Date:2018-10-31 10/31/2018 TRAVIS Elam Primary NEISHA A [place] [id number] N Insurance:MEDICARE BEERYDOB: Community [place] PART A BPolicy Number: [id number], [place] [id number] Repository [address]Crp: (119) Date:2018-10-31 [phone] () 10/31/2018 Secondary NEISHA A Jessica Insurance:HUMANA BEERYDOB: [facility] [id number] Hospital Number: Repository [id number] Date:6224-31-12SH[address] [address]OB: 10/31/2018 Tertiary NOT GIVENUNK [place] Insurance:SELF PAY [facility] Number: Effective Repository Date:2018-10-31 10/04/2018 TRAVIS Elam Primary NEISHA A [place] [id number] N Insurance:MEDICARE BEERYDOB: Community [place] PART A BPolicy Number: [id number], [place] [id number] Repository [address]Orr: (631) Date:2013-01-19 [phone] () 10/04/2018 Secondary NEISHA A [place] Insurance:HUMANA BEERYDOB: [facility] COMM[facility]CIALB[facility] Medical Centericy [id number] Hospital Number: Repository [id number] Date:6591-59-09CK[address] [address]EW: 10/04/2018 Tertiary NOT GIVENUNK Jessica Insurance:SELF PAY [facility] Number: Effective Repository Date:2018-09-26 10/02/2018 TRAVIS Elam Primary NEISHA A [place] [id number] N Insurance:MEDICARE BEERYDOB: Community [place] PART A BPolicy Number: [id number], [place] [id number] Repository [address]Hxc: 330) Date:2018-09-26 [phone] () 10/02/2018 Secondary NEISHA A Jessica Insurance:HUMANA BEERYDOB: [facility] [id number] Hospital Number: Repository [id number] Date:1341-96-98ZC [address] [place] [address]IJ: 10/02/2018 Tertiary NOT GIVENUNK [place] [facility] Number: Effective Repository Date:2018-09-26 10/02/2018 TRAVIS Elam Primary NEISHA A [place] [id number] N Insurance:MEDICARE BEERYDOB: Community [facility] [place] PART A BPolicy Number: [id number], [place] [id number] Repository [address]Ghl: 330) Date:2018-09-26 [phone] () 10/02/2018 Secondary NEISHA A Jessica Insurance:HUMANA BEERYDOB: [facility] [id number] Hospital Number: Repository [id number] Date:4825-75-91KK[address] [address]ZT: 10/02/2018 Tertiary NOT GIVENUNK [place] Insurance:[facility] Hospital Number: Effective Repository Date:2018-10-02 09/22/2018 TRAVIS Elam Primary NEISHA A [place] [id number] N Insurance:MEDICARE BEERYDOB: Community [place] PART A BPolicy Number: [id number], [place] [id number] Repository [address]Mmv: (330) Date:2018-09-13 [phone] () 09/22/2018 Secondary NEISHA A Jessica Insurance:HUMANA BEERYDOB: [facility] [id number] Hospital Number: Repository [id number] Date:6955-35-90DX [address] [place] [address]BX: 09/22/2018 Tertiary NOT GIVENUNK Jessica Insurance:SELF PAY [facility] Hospital Number: Effective Repository Date:2018-09-13 09/18/2018 TRAVIS Elam Primary NEISHA A [place] [id number] N Insurance:MEDICARE BEERYDOB: Community [facility] [place] PART A BPolicy Number: [id number], [place] [id number] Repository [address]Eox: (775) Date:2018-09-13 [phone] () 09/18/2018 Secondary NEISHA A [place] Insurance:HUMANA BEERYDOB: [facility] [id number] Hospital Number: Repository [id number] Date:2595-47-26ME [address] [place] [address]DK: 09/18/2018 Tertiary NOT GIVENUNK [place] Insurance:[facility]LF [facility]Y [facility] Hospital Number: Effective Repository Date:2018-09-13 09/09/2018 TRAVIS Elam Primary NEISHA A [place] [id number] N Insurance:MEDICARE BEERYDOB: Community [facility] [place] PART A BPolicy Number: [id number], [place] [id number] Repository [address]Lzc: (415) Date:2018-09-09 [phone] () 09/09/2018 Secondary NEISHA A Jessica Insurance:HUMANA BEERYDOB: [facility] [id number] Hospital Number: Repository [id number] Date:3737-50-17YS [address] [place] [address]DJ: 09/09/2018 Tertiary NOT GIVENUNK Jessica Insurance:SELF PAY [facility] Number: Effective Repository Date:2018-09-09 09/08/2018 TRAVIS Elam Primary NEISHA A [place] [id number] N Insurance:MEDICARE BEERYDOB: Community [place] PART A BPolicy Number: [id number], [place] [id number] Repository [address]Atg: 330) Date:2018-09-08 [phone] () 09/08/2018 Secondary NEISHA A Jessica Insurance:HUMANA BEERYDOB: [facility] [id number] Hospital Number: Repository [id number] Date:9900-05-25OH [address] [place] [address]SQ: 09/08/2018 Tertiary NOT GIVENUNK Jessica Insurance:SELF PAY [facility] Number: Effective Repository Date:2018-09-08 08/18/2018 NEISHA A Primary NEISHA A Osmar Pomerene BEERYDOB: Insurance:MEDICARE BEERYDOB: [facility] [id number] [facility] [id number] [place] [address] Number: 2 N [facility] [id number] [place], [place] [address]Bnn: Date:Plan Name:[facility] [phone] () 08/18/2018 Secondary NEISHA A Osmar Pomerene Insurance:HUMAN BEERYDOB: [facility] [id number] [place] [address] 2 [address] [facility] Repository Number: [facility]ITALRDWSHRUTISIERRA [facility] [id number] [place] [address] Date: 06/21/2018 TRAVIS Elam Primary NEISHA A [place] [id number] N Insurance:MEDICARE BEERYDOB: [facility] PART A [facility] Number: [id number], [place] [id number] Repository [address]Yip: (330) Date:2018-06-21 [phone] () 06/21/2018 Secondary NEISHA A [place] Insurance:HUMANA BEERYDOB: [facility] [id number] Hospital Number: Repository [id number] Date:4053-80-83PE[address] [address]ZJ: 06/21/2018 Tertiary NOT GIVENUNK [place] [facility] Number: Effective Repository Date:2018-06-21 06/02/2018 TRAVIS Elam Primary NEISHA A Jessica [id number] N Insurance:MEDICARE BEERYDOB: Community [place] [place] PART A BPolicy Number: [id number], [place] [id number] Repository [address]Yeu: (330) Date:2018-06-02 [phone] () 06/02/2018 Secondary NEISHA A [place] Insurance:HUMANA BEERYDOB: Community [facility] [id number] Hospital Number: Repository [id number] Date:2204-89-76SJ[address] [address]XM: 06/02/2018 Tertiary NOT GIVENUNK [place] Insurance:SELF PAY [facility] Number: Effective Repository Date:2018-06-02 05/25/2018 TRAVIS Elam Primary NEISHA A Jessica [id number] N Insurance:MEDICARE BEERYDOB: Community [place] [place] PART A BPolicy Number: [id number], [place] [id number] Repository [address]Pss: (260) Date:2018-05-25 [phone] () 05/25/2018 Secondary NEISHA A [place] Insurance:HUMANA BEERYDOB: [facility] [id number] Hospital Number: Repository [id number] Date:6847-36-73OO [address] [place] [address]IF: 05/25/2018 Tertiary NOT GIVENUNK [place] Insurance:[facility]LF [facility]Y [facility] Hospital Number: Effective Repository Date:2018-05-25 05/09/2018 TRAVIS Elam Primary NEISHA A [place] [id number] N Insurance:MEDICARE BEERYDOB: Community [place] PART A BPolicy Number: [id number], [place] [id number] Repository [address]Wmd: (330) Date:2018-05-02 [phone] () 05/09/2018 Secondary NEISHA A [place] Insurance:HUMANA BEERYDOB: [facility] COMMERCIALPolicy [id number] Hospital Number: Repository [id number] Date:6825-15-66KR [address] [address]XW: 05/09/2018 Tertiary NOT GIVENUNK [place] Insurance:[facility]LF [facility]Y [facility] Hospital Number: Effective Repository Date:2018-05-02 03/08/2018 Travis Elam Primary NEISHA A Jessica [id number] N Insurance:MEDICARE BEERYDOB: Community [facility] [place] PART A BPolicy Number: [id number], [place] [id number] Repository [address]Bhs: (529) Date:2018-03-06 [phone] () 03/08/2018 Secondary NEISHA A [place] Insurance:HUMANA BEERYDOB: [facility] [id number] Hospital Number: Repository [id number] Date:5358-30-74CQ [address] [place] [address]HM: 03/08/2018 Tertiary NOT GIVENUNK [place] Insurance:[facility]LF [facility] Hospital Number: Effective Repository Date:2018-03-06 02/14/2018 Travis Elam Primary NEISHA A [place] [id number] N Insurance:MEDICARE BEERYDOB: Community [place] PART A BPolicy Number: [id number], [place] [id number] Repository [address]Bbw: (254) Date:2018-02-07 [phone] () 02/14/2018 Secondary NEISHA A Jessica Insurance:HUMANA BEERYDOB: [facility] [id number] Hospital Number: Repository [id number] Date:5069-41-08FE03 [address] [id number]: 02/14/2018 Tertiary NOT GIVENUNK [place] [facility] Number: Effective Repository Date:2018-02-07 2018 Travis Elam Primary NEISHA A [place] [id number] Insurance:MEDICARE BEERYDOB: Community [place] [address] BPolicy [place]: [id number] [id number] Repository [id number]: [phone]) Date:2018-01-30 [phone] () 2018 Secondary NEISHA A [place] Insurance:HUMANA BEERYDOB: [id number] Hospital Number: Repository [id number] Date:[id number] [address] [place] [id number]: 2018 Tertiary NOT GIVENUNK [place] Insurance:SELF PAY [facility] Number: Effective Repository Date:2018-01-30 01/31/2018 Travis Elam Primary NEISHA A [place] [id number] Insurance:MEDICARE BEERYDOB: Community [place] PART A BPolicy Number: [id number] [id number] Repository [id number]: ([phone]) Date:2018-01-10 [phone] () 01/31/2018 Secondary NEISHA A [place] Insurance:HUMANA BEERYDOB: [facility] [id number] Hospital Number: Repository [id number] Date:[id number] [address] [place] [id number]: 01/31/2018 Tertiary NOT GIVENUNK [place] [facility] Number: Effective Repository Date:2018-01-10
== END ==
PROVIDERS: Family Provider Internal Medicine; PCP Internal Medicine; Visit Provider Internal Medicine Nephrology
DX: I10 Essential (primary) hypertension (principal)
CPT/HCPCS: 36415

== ENCOUNTER → 2018-10-31 13:15 | Outpatient (CLI) | payer MEDICARE, OTHER, SELFPAY | PROVIDERS: Family Provider Internal Medicine; PCP Internal Medicine; Visit Provider Internal Medicine Nephrology | DX: I10 Essential (primary) hypertension (principal) ==

== ENCOUNTER → 2018-11-07 13:37 | Outpatient (CLI) | payer MEDICARE, OTHER, SELFPAY ==
--- NOTE | 2018-11-07 13:43 | CT_ITS ---
STUDY: CT ABDOMEN AND PELVIS WITH CONTRAST REASON FOR EXAM: Female, 68 years old. History of renal nodule. Hypertensive disorder. RADIATION DOSAGE (If Supplied By Facility): CTDIvol = ( 25.59 ) mGy, DLP = ( 3632.57 ) mGycm TECHNIQUE: Transaxial images were obtained from the dome of the diaphragm to the symphysis pubis without oral contrast. 100 ml of Isovue 370 contrast was administered. Sagittal and coronal images were reconstructed. Individualized dose optimization techniques were used for this CT. COMPARISON: Comparison is made with prior study dated September 01, 2012. FINDINGS: The visualized lung bases are unremarkable. The visualized portions of the heart are within normal limits. Minimally dilated intrahepatic biliary ducts. There are surgical clips in the gallbladder fossa consistent with a prior cholecystectomy. The common bile duct is dilated measuring 1.3 cm in transverse dimension. Normal spleen. Normal pancreas. Normal bilateral adrenal glands. There is evidence of bilateral parapelvic renal cysts. Normal visualized stomach. Normal small intestine. There are multiple colonic diverticula consistent with diverticulosis. The appendix is visualized and appears normal. There is diffuse atherosclerotic calcification of the abdominal aorta, without a demonstrated aneurysm. Normal inferior vena cava. Normal retroperitoneum. Normal urinary bladder. There is absence of the uterus consistent with a prior hysterectomy. Normal abdominal wall. There are diffuse degenerative changes of the visualized lumbar spine. CT/CTA Abdomen W/WO Contrast IMPRESSION: Bilateral parapelvic renal cysts. Sigmoid diverticulosis. Status post cholecystectomy. Mild degree of intrahepatic biliary ductal dilatation. Dilated common bile duct. Electronically Signed: Kvng Michael MD at 15:55 EST Tel [phone], Service support ,
--- OUTSIDE RECORDS SUMMARY | 2019-02-09 00:55 | XMS RPT_ITS ---
:1950 Author Organization [place] Support Name Relationship Address Phone TRAVIS MCNEAL Unavailable [address] + [place] [address] ADDIE MCNEAL Unavailable [address] + [place] [address] R Unavailable Unavailable Unavailable TRAVIS MCNEAL Unavailable [address] + [place] [address] ADDIE MCNEAL Unavailable [address] + [place] [address] R Unavailable Unavailable Unavailable TRAVIS MCNEAL Unavailable [address] + [place] [address] ADDIE MCNEAL Unavailable [address] + [place] [address] R Unavailable Unavailable Unavailable TRAVIS MCNEAL Unavailable [address] + [place] [address] ADDIE MCNEAL Unavailable [address] + [place] [address] R Unavailable Unavailable Unavailable TRAVIS MCNEAL Unavailable [address] + [place] [address] ADDIE MCNEAL Unavailable [address] + [place] [address] R Unavailable Unavailable Unavailable TRAVIS MCNEAL Unavailable [address] + [place] [address] ADDIE MCNEAL Unavailable [address] + [place] [address] R Unavailable Unavailable Unavailable TRAVIS MCNEAL Unavailable [address] + [place] [address] ADDIE MCNEAL Unavailable [address] + [place] [address] R Unavailable Unavailable Unavailable TRAVIS MCNEAL Unavailable [address] + [place] [address] ADDIE MCNEAL Unavailable [address] + [place] [address] R Unavailable Unavailable Unavailable TRAVIS MCNEAL Unavailable [address] + [place] [address] ADDIE MCNEAL Unavailable [address] + [place] [address] R Unavailable Unavailable Unavailable TRAVIS MCNEAL Unavailable [address] + [place] [address] ADDIE MCNEAL Unavailable [address] + [place] [address] R Unavailable Unavailable Unavailable TRAVIS MCNEAL Unavailable [address] + [place] [address] ADDIE MCNEAL Unavailable [address] + [place] [address] R Unavailable Unavailable Unavailable TRAVIS MCNEAL Unavailable [address] + [place] [address] ADDIE MCNEAL Unavailable [address] + [place] [address] R Unavailable Unavailable Unavailable NOT GIVEN Unavailable Unavailable Unavailable TRAVIS ELIZABET Unavailable [address] [place] [address] MIGDALIA JARRETT Unavailable [address] [place], [place] [id number] SARMAD MCNEALER Unavailable [address] + [place] [address] ADDIE MCNEAL Unavailable [address] + [place] [address] R Unavailable Unavailable Unavailable DAKOTACatalinoSARMADER Unavailable [address] + [place] [address] BEERADDIE Bae Unavailable [address] + [place] [address] R Unavailable Unavailable Unavailable TRAVIS MCNEAL Unavailable [address] + [place] [address] ADDIE MCNEAL Unavailable [address] + [place] [address] R Unavailable Unavailable Unavailable ELIZABET TRAVIS Unavailable [address] + [place] [address] ADDIE MCNEAL Unavailable [address] + [place] [address] R Unavailable Unavailable Unavailable TRAVIS MCNEAL Unavailable [address] + [place] [address] ADDIE MCNEAL Unavailable [address] + [place] [address] R Unavailable Unavailable Unavailable ELIZABET TRAVIS Unavailable [address] + [place] [address] ADDIE MCNEAL Unavailable [address] + [place] [address] R Unavailable Unavailable Unavailable TRAVIS MCNEAL Unavailable [address] + [place] [address] ADDIE MCNEAL Unavailable [address] + [place] [address] R Unavailable Unavailable Unavailable TRAVIS MCNEAL Unavailable [address] + [place] [address] ADDIE MCNEAL Unavailable [address] + [place] [address] R Unavailable Unavailable Unavailable Care Team Providers Name Role Phone SUSU VALERIO MD Admitting Unavailable SUSU VALERIO MD Attending Unavailable HLIVKOSUSU MD Primary Care Unavailable FABY, [place] DO Consulting Unavailable PROVIDER, UNKNOWN Consulting Unavailable Faby DO, Jessica Attending Unavailable Faby DO, Jessica Referring Unavailable Faby DO, Jessica Consulting Unavailable Alejandro, Marcy Attending Unavailable Faby, Jessica Primary Care Unavailable Alejandro, Marcy Attending Unavailable Faby, Jessica Primary Care Unavailable Faby, Jessica Attending Unavailable Faby, [place] Primary Care Unavailable Alejandro, Marcy Attending Unavailable [...] Unavailable Faby, Jessica Primary Care Unavailable Addie aMllory GAS FITTER APPRENTICE-C Attending Unavailable Addie Mallory GAS FITTER APPRENTICE-C Referring Unavailable Faby, Jessica Primary Care Unavailable [...] Unavailable Faby, Jessica Primary Care Unavailable CarlosBaron sorto Attending Unavailable Faby, Jessica Referring Unavailable PROBLEMS PROBLEMS DATE TYPE CONDITION / CODE ATTENDING STATUS SOURCE 11/16/2018 Unknown I10 - Essential Marcy Allen Active [place] (primary) [facility], [facility] hypertension / Hospital I10(ICD-10) Repository 11/30/2018 Unknown M54.12 - Faby, Active [place] Radiculopathy, [facility] cervical region / Hospital M54.12(ICD-10) Repository 10/20/2018 Unknown R07.9 - Chest Carlos, Baron Active [place] pain, unspecified Community / R07.9(ICD-10) Hospital Repository 09/08/2018 Unknown Z51.81 - Encounter Faby, Active [place] for therapeutic [facility] drug level Hospital monitoring / Repository Z51.81(ICD-10) 08/09/2018 Unknown R10.30 - [place] Winnie Samaniego Active [place] abdominal pain, [facility], Later [facility] unspecified / Hospital R10.30(ICD-10) Repository 08/18/2018 Unknown M89.8X1 - Other Faby, Active [place] specified [facility] disorders of bone, Hospital shoulder / Repository M89.8X1(ICD-10) 2018 Unknown R10.13 - Faby, Active [place] Epigastric pain / [facility] R10.13(ICD-10) Hospital Repository 01/31/2018 Unknown Z12.31 - Encounter Faby, Active [place] for screening [facility] mammogram for Hospital malignant neoplasm Repository of breast / Z12.31(ICD-10) PROCEDURES PROCEDURES No Procedure Records FoundRESULTS RESULTS RENAL PROFILE Collected: 12/07/2018 Status: F Source: [place] 7:02 AM [facility] HOSPITAL REPOSITORY TYPE CODE TESTS RESULT OUT [...] CO2 30.0 Performed By: #### L500.3600 #### [facility] [address] [facility] [place], [address] CORTISOL SERUM Collected: 12/07/2018 Status: F Source: [place] 7:02 AM [facility] REPOSITORY TYPE CODE TESTS RESULT OUT OF RANGE REFERENCE UNITS LAB L509.6000 3.09-22.40 ug/dL Normal CORTISOL 10.20 Result Comment: Adult (AM) 4.30 - 22.40 ug/dL Adult (PM) 3.09 - 16.66 ug/dL Performed By: #### L509.6000 #### [facility] [address] [place], [address] ALDOSTERONE, SERUM Collected: 12/07/2018 Status: F Source: [place] 7:02 AM [facility] REPOSITORY TYPE CODE TESTS RESULT OUT OF RANGE REFERENCE UNITS LAB L3300.1100 0.0-30.0 ng/dL Normal ALDOSTERON 4374 15.4 Result Comment: This test was developed and its performance characteristics determined by [facility]. It has not been cleared or approved by the Food and Drug Administration. Performed at: [address] [id number] Play Therapist: Tavares Brooks MD, Phone: [phone] Performed By: #### L3300.1100, L3600.5400 #### [facility] (refer to report for specific site) refer to report for address and phone number CORTISOL, 24 HR UR Collected: 12/07/2018 Status: F Source: [place] FREE 7:02 AM [facility] REPOSITORY TYPE CODE TESTS RESULT OUT OF RANGE REFERENCE UNITS LAB L3600.5500 Undefined ug/L Normal 8 CORTISOL,U FREE LAB L3600.5600 0-50 ug/24 hr Normal 11 CORTISOL,FR U24 Result Comment: This test was developed and its performance characteristics determined by [facility]. It has not been cleared or approved by the Food and Drug Administration. Performed By: #### L3300.1100, L3600.5400 #### [facility] (refer to report for specific site) refer to report for address and phone number CREATININE FINGERSTICK Collected: 11/07/2018 Status: F Source: [place] 1:49 PM [facility] REPOSITORY TYPE CODE TESTS RESULT OUT OF RANGE REFERENCE UNITS LAB L9100.0210 0.55-1.02 mg/dL Normal CREATININE WB 1.0 Performed By: #### L9100.0200 #### [facility] Point of Care [address] [place] [address] CTA ABDOMEN W/WO Observed: 11/07/2018 Status: F Source: [place] CONTRAST 1:43 PM [facility] REPOSITORY [facility] Imaging Services [address] [place] [address] CTA Abdomen W/WO Contrast MR#: [id number] Acct: [id number] Name: NEISHA MCNEAL Rep #: [id number] : 1950 F 68 From: Kvng Michael MD PCP: Jessica Corona DO Status: REG CLI Study: CTA Abdomen W/WO Contrast Date of Exam: 11/07/18 Exam# [id number] Ordering Dr: Marcy Allen DO STUDY: CT [...] Kvng Michael MD at 15:55 EST Tel [phone], Service support , CC: Marcy Allen DO; Jessica Corona DO Fryer Operator: Signed MISCELLANEOUS LAB Collected: 10/31/2018 Status: F Source: [place] PROCEDURE 1:17 PM [facility] REPOSITORY Order Comment: Comments: [id number],SEP,REF,LAV Test(s) Ordered: [id number],SEP,REF,LAV TYPE CODE TESTS RESULT OUT OF RANGE REFERENCE UNITS LAB L801.1541 Normal [facility] TEST Result Comment: TEST RESULT LIMITS [...] metanephrines and plasma catecholamines. TESTING PERFORMED AT [facility]. ORIGINAL REPORT ON FILE IN LAB CONTAINS ADDITIONAL TEST SITE INFORMATION. Performed By: #### L801.1541 #### [facility] [address] [facility] [place], [address] STRESS REPORT Observed: 10/02/2018 Status: F Source: [place] 2:54 PM [facility] REPOSITORY [facility] Cardiovascular Services [address] [place] [address] MR#: [id number] Acct: [id number] Name: NEISHA MCNEAL Rep #: [id number] : 1950 68 From: Baron Gonzalez MD [...] DO Date Dictated: 10/02/181447 Date Transcribed: 10/02/181447 Fryer Operator: CO Signed INITAL EVALUATION (1) Observed: 09/28/2018 Status: F Source: [place] - PT 1:13 PM [facility] REPOSITORY [facility] Physical Therapy 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 HTN. GERD. [...] INDEP GAIT AND TRANSFERS. 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 TOMI UE'S WFL. Sensory [...] to be FAXED BACK to us at [phone] for Medicare purposes. Please let me know if there are questions or concerns regarding this plan of care. Physician Signature: Date: <Electronically signed by Maliha Rudolph PT, Cert. MDT> 09/28/18 1313 CC: Jessica Coroan DO NAZANIN Signed For Medicare only, by signing this I certify the plan of care. Physicians Signature Date RENAL ARTERY DUPLEX Observed: 09/24/2018 Status: F Source: [place] 10:13 AM [facility] REPOSITORY [facility] Cardiovascular Services [address] [place] [address] Renal Artery Duplex Ultrasound 09/22/18 0802 MR#: [id number] Acct: [id number] Name: NEISHA MCNEAL Rep #: [id number] : 1950 68 From: Ciro Maravilla MD Attending Dr: Jessica Corona DO Status: REG CLI Ordering Dr: Jessica Corona DO Date: 09/22/18 Location: [facility] Sex: F C Admitted: Reason For Study: [...] Dictated: 09/22/18 0802 Date Transcribed: 09/24/18 1013 Fryer Operator: Signed KIDNEY AND BLADDER Observed: 09/18/2018 Status: F Source: [place] 4:23 PM [facility] REPOSITORY [facility] Imaging Services [facility] [place] [address] Kidney and Bladder MR#: [id number] Acct: [id number] Name: NEISHA MCNEAL Rep #: [id number] : 1950 F 68 From: Jorge Holland MD PCP: Jessica Corona DO Status: REG CLI Study: Kidney and Bladder Date of Exam: 09/18/18 Exam# [id number] Ordering Dr: Jessica Corona DO STUDY: RENAL [...] Service support , CC: Jessica Corona DO Fryer Operator: Signed 12 LEAD ELECTROCARDIOGRAM Observed: 09/12/2018 Status: F Source: [place] 11:06 AM [facility] REPOSITORY [facility] Cardiovascular Services [address] [place] [address] 12 Lead EKG 09/09/18 0949 MR#: [id number] Acct: [id number] Name: NEISHA MCNEAL Rep #: [id number] : 1950 68 From: Ian Gudino MD [...] Abnormal ECG Confirmed by TERESE MCKAY, IAN ([id number]), script editor CHARITY VILLEGAS ([id number]) on 09/12/2018 11:06:08 AM Referred By: Jessica Corona Confirmed By:IAN GUDINO MD 09/12/18 1106 Date Ian Gudino MD CC: Anel Hunter MD; Jessica Corona DO Signed EMERGENCY DEPARTMENT Observed: 09/09/2018 Status: F Source: [place] SUMMARY 4:33 PM [facility] REPOSITORY [facility] Medical Records Department [address] [place] [address] Emergency Department Summary 09/09/18 0934 MR#: [id number] Acct: [id number] Name: NEISHA MCNEAL Rep #: [id number] : 1950 68 From: Anel Hunter MD [...] Hypertension, improved This note was generated with [employer] dictation software. It may contain incorrect words, [...] problems, contact your Primary Care Provider. Call [employer] [facility] ([phone]) or report to the closest Emergency Room. Call 911 if necessary. 09/09/18 1633 <Electronically signed by Anel Hunter MD> Date Anel Hunter MD Cosigner Signature (If Indicated): Date CC: Jessica Corona DO DISCHARGE INSTRUCTION Observed: 09/09/2018 Status: F Source: [place] 12:07 PM [facility] REPOSITORY [facility] Medical Records Department [address] [place] [address] Discharge Instruction 09/09/18 1203 MR#: [id number] Acct: [id number] Name: NEISHA MCNEAL Rep #: [id number] : 1950 68 From: Anel Hunter MD PCP: Jessica Corona DO Status: REG ER ED Disposition - Plan for ED Patient: Disposition: Home or Assisted Living Chief Complaint: Hypertension Instructions: ED HTN Established Prescriptions: Amlodipine Besylate [Norvasc] 2.5 mg PO DAILY #30 tablet Clonidine HCl [Catapres] 0.1 mg PO BID PRN #20 tablet PRN Reason: Hypertensive Emergency Referrals: Jessica Corona, [Primary Care Provider] - 3-5 Days if not improving What to do if you have Problems For any increased pain, shortness of breath, bleeding, nausea or vomiting, chest pain, or any unexpected problems, contact your Primary Care Provider. Call [facility] ([phone]) or report to the closest Emergency Room. Call 911 if necessary. 09/09/18 1207 <Electronically signed by Anel Hunter MD> Date Anel Hunter MD Cosigner Signature (If Indicated): Date CC: Jessica Corona DO CBC W/DIFF, AUTOMATED Collected: 09/09/2018 Status: F Source: [place] 9:38 AM [facility] REPOSITORY TYPE CODE TESTS RESULT OUT OF [...] Lymph 1.21 Performed By: #### L100.0100 #### [facility] [address] [place], [address] BASIC METABOLIC Collected: 09/09/2018 Status: F Source: [place] PROFILE (BMP) 9:38 AM [facility] REPOSITORY TYPE CODE TESTS RESULT OUT OF [...] GAP 7 Performed By: #### L500.2500 #### [facility] [address] [place], [address] BRAIN/HEAD WITHOUT Observed: 09/09/2018 Status: F Source: [place] CONTRAST 9:31 AM [facility] REPOSITORY [facility] Imaging Services [address] [place] [address] Brain/Head without Contrast MR#: [id number] Acct: [id number] Name: NEISHA MCNEAL Rep #: [id number] : 1950 F 68 From: Italo Brown DO PCP: Jessica Corona DO Status: REG ER Study: Brain/Head without Contrast Date of Exam: 09/09/18 Exam# [id number] Ordering Dr: Anel Hunter MD STUDY: CT [...] of the brain. Electronically Signed: Italo Brown at 10:22 EDT Tel , Service support , CC: Anel Hunter MD; Jessica Corona DO Fryer Operator: Signed BASIC METABOLIC Collected: 09/08/2018 Status: F Source: [place] PROFILE ([facility]) 10:49 AM [facility] REPOSITORY TYPE CODE TESTS RESULT OUT OF [...] GAP 5 Performed By: #### L500.2500 #### [facility] [address] [place], [address] FINAL SURGICAL Observed: 08/18/2018 Status: F Source: [facility] PATHOLOGY REPORT 2:32 PM [facility] REPOSITORY . Pathology Reports Accession: Collected Date/Time: Received Date/Time: Pathologist: [id number] 08/18/2018 14:32 EDT 08/18/2018 14:32 EDT DO JENNIFER MCGILL Final Surgical Pathology Report DIAGNOSIS: A) DUODENUM: - NO SPECIFIC HISTOPATHOLOGIC CHANGES. B) GASTRIC ANTRUM: - REACTIVE GASTROPATHY. - Negative for H. Pylori. C) GASTRIC: - FRAGMENTS CONSISTENT WITH FUNDIC GLAND POLYP. D) G-E JUNCTION: - JUNCTIONAL MUCOSA WITH NO SPECIFIC HISTOPATHOLOGIC CHANGES. - Negative for intestinal metaplasia. COMMENT: [facility]# [id number] CLINICAL INFORMATION: CHRONIC NAUSEA SPECIMEN: A DUODENUM, [...] cm. TS -1 Dictated by Manuela HILLS ([facility]) MICROSCOPIC DESCRIPTION: Slides reviewed. Electronically Signed by Pathology Report verified by [facility] Electronically signed by JENNIFER MCGILL DO Sign out Date: 08/21/2018 13:18 Performing Lab: [address] Performed By: #### SPFR #### [place] [address] Observed: 08/18/2018 Status: F Source: [place] H.PYLORI SCREEN(CLOTEST) 10:51 AM [facility] REPOSITORY H.PYLORI SCREEN(CLOtest) CLOtest 1 hour _NEGATIVE 08/18/18.1216.BKO. [...] SYMPTOMS OF GASTROINTESTINAL DISEASE. Performed By: #### [id number] #### [facility],[address] [place], [place] [address] OPERATIVE PROCEDURES Observed: 08/18/2018 Status: F Source: [facility] 8:12 AM [facility] OPERATIVE REPORT NAME ACCOUNT SEX AGE ADMIT DISCHARGE PT MED. RECORD# NUMBER DATE DATE TYPE ELIZABET [id number] Patricia 68 08/18/18 08/18/18 2 NEISHA Jalloh [id number] ROOM: [facility] DATE OF : 1950 DICTATING PHYSICIAN: Susu Valerio DATE OF SURGERY: August 18, 2018. SURGEON: Susu Valerio M.D. ASSISTANT FARM OPERATIONS MANAGER: ANESTHESIOLOGIST: ANESTHETIC: Please see anesthesia notes for [...] Susu Valerio MD 08/18/18 10:18 JOB #: [id number] Transcribed By: tequila 08/18/18 20:41 Electronically signed by: E-SIGN: DR. VALERIO 09/01/18 07:40 Page 2 of 2 NEISHA MCNEAL Operative Report ABD INC DECUB Observed: 06/21/2018 Status: F Source: [place] AND/OR ERECT 9:12 AM [facility] REPOSITORY [facility] Imaging Services [address] [place] [address] Abd Inc Decub and/or Erect MR#: [id number] Acct: [id number] Name: NEISHA MCNEAL Rep #: [id number] : 1950 F 68 From: Tapan Gore MD PCP: Jessica Corona DO Status: REG CLI Study: Abd Inc Decub and/or Erect Date of Exam: 06/21/18 Exam# [id number] Ordering Dr: Winnie Samaniego STUDY: X-RAY - [...] , Service support , CC: Winnie Samaniego GAS FITTER APPRENTICE; Jessica Corona DO Fryer Operator: Signed CERV SPINE 2 OR 3 Observed: 06/02/2018 Status: F Source: [place] VIEWS 8:19 AM [facility] REPOSITORY [facility] Imaging Services [address] [place] [address] Cerv Spine 2 or 3 Views MR#: [id number] Acct: [id number] Name: NEISHA MCNEAL Rep #: [id number] : 1950 F 68 From: Jamil Paulson MD PCP: Jessica Corona DO Status: REG CLI Study: Cerv Spine 2 or 3 Views Date of Exam: 06/02/18 Exam# [id number] Ordering Dr: Jessica Corona DO STUDY: X-RAY [...] Service support , CC: Jessica Corona DO Fryer Operator: Signed L/S SPINE MIN 4 Observed: 05/25/2018 Status: F Source: [place] VIEWS 9:43 AM [facility] REPOSITORY [facility] Imaging Services [address] [place] [address] L/S Spine Min 4 Views MR#: [id number] Acct: [id number] Name: NEISHA MCNEAL Rep #: [id number] : 1950 F 68 From: Mikayla Guerrier MD PCP: Jessica Corona DO Status: REG CLI Study: L/S Spine Min 4 Views Date of Exam: 05/25/18 Exam# [id number] Ordering Dr: Addie Mallory STUDY: X-RAY - [...] , CC: DEYSI Mallory; Jessica Corona DO Fryer Operator: Signed DEXA BONE DENSITY Observed: 05/09/2018 Status: F Source: [place] STUDY 8:25 AM [facility] REPOSITORY [facility] Imaging Services [address] [place] [address] Dexa Bone Density Study MR#: [id number] Acct: [id number] Name: NEISHA MCNEAL Rep #: [id number] : 1950 F 68 From: Kvng Michael MD PCP: Jessica Corona DO Status: REG CLI Study: Dexa Bone Density Study Date of Exam: 05/09/18 Exam# [id number] Ordering Dr: Jessica Corona DO STUDY: DUAL [...] Kvng Michael MD at 8:25 EDT Tel [phone], Service support , CC: Jessica Corona DO Fryer Operator: Signed LIVER PROFILE Collected: 03/08/2018 Status: F Source: [place] 6:56 AM [facility] REPOSITORY TYPE CODE TESTS RESULT OUT OF [...] BILI 0.12 Performed By: #### L500.3400, L500.4100, L501.77360, L501.9520, L506.0400 #### [facility] [address] [place], [address] LIPID PROFILE Collected: 03/08/2018 Status: F Source: [place] 6:56 AM [facility] REPOSITORY TYPE CODE TESTS RESULT OUT OF [...] VLDL 34 Performed By: #### L500.3400, L500.4100, L501.56916, L501.9520, L506.0400 #### [facility] [address] [place], [address] FREE T3 Collected: 03/08/2018 Status: F Source: [place] 6:56 AM [facility] REPOSITORY TYPE CODE TESTS RESULT OUT OF RANGE REFERENCE UNITS LAB L501.77559 2.18-3.98 pg/mL Normal FREE T3 2.7 Performed By: #### L500.3400, L500.4100, L501.59554, L501.9520, L506.0400 #### [facility] [place], [address] THYROID STIM HORMONE Collected: 03/08/2018 Status: F Source: [place] (TSH) 6:56 AM [facility] REPOSITORY TYPE CODE TESTS RESULT OUT OF RANGE REFERENCE UNITS LAB L501.9520 0.358-3.74 uIU/mL Normal TSH 3.42 Performed By: #### L500.3400, L500.4100, L501.05789, L501.9520, L506.0400 #### [facility] [place], [address] T4 FREE DIRECT Collected: 03/08/2018 Status: F Source: [place] 6:56 AM [facility] REPOSITORY TYPE CODE TESTS RESULT OUT OF RANGE REFERENCE UNITS LAB L506.0400 0.76-1.46 ng/dL Normal T4 FREE 0.97 DIRECT Performed By: #### L500.3400, L500.4100, L501.95507, L501.9520, L506.0400 #### [facility] [place], [address] MRCP ABDOMEN WITHOUT Observed: 02/14/2018 Status: F Source: [place] CONTRAST 12:37 PM [facility] REPOSITORY [facility] Imaging Services [address] [place] [address] MRCP Abdomen without Contrast MR#: [id number] Acct: [id number] Name: NEISHA MCNEAL Rep #: [id number] : 1950 F 68 From: Vj Rajput MD PCP: Jessica Corona DO Status: REG CLI Study: MRCP Abdomen without Contrast Date of Exam: 02/14/18 Exam# [id number] Ordering Dr: Jessica Corona DO STUDY: MR [...] Service support , CC: Jessica Corona DO Fryer Operator: Signed ABDOMEN LIMITED Observed: 2018 Status: F Source: [place] 9:48 AM [facility] REPOSITORY [facility] Imaging Services [address] [place] [address] Abdomen Limited MR#: [id number] Acct: [id number] Name: NEISHA MCNEAL Rep #: [id number] : 1950 F 68 From: Kvng Michael MD PCP: Jessica Corona DO Status: REG CLI Study: Abdomen Limited Date of Exam: 02/03/18 Exam# [id number] Ordering Dr: Jessica Corona DO STUDY: ABDOMINAL [...] Kvng Michael MD at 13:52 EDT Tel [phone], Service support , CC: Jessica Corona DO Fryer Operator: Signed SCREENING MAMM (CAD), Observed: 01/31/2018 Status: F Source: BLUFFS BILAT 1:17 PM [facility] Imaging Services [address] [place] [address] SCREENING MAMM (CAD), BILAT MR#: [id number] Acct: [id number] Name: NEISHA MCNEAL Rep #: [id number] : 1950 F 67 From: Kvng Michael MD PCP: Jessica Corona DO Status: REG CLI Study: SCREENING MAMM (CAD), BILAT Date of Exam: 01/31/18 Exam# [id number] Ordering Dr: Jessica Corona DO MAMMOGRAPHY - [...] delay biopsy of a clinically suspicious abnormality. [id number] Electronically Signed: Kvng Michael MD at 14:26 EDT Tel [phone], Service support , CC: Jessica Corona DO Fryer Operator: Signed ALLERGIES ALLERGIES DATE TYPE / CODE NAME / CODE REACTION SEVERITY SOURCE 09/09/2018 Drug adhesive/F0060 blisters Unknown Jessica Allergy/270205804( 06006(RXNORM) [facility]) Hospital Repository 09/09/2018 Drug levofloxacin/F TENDONITIS Unknown Jessica Allergy/486059085( 859579673(RXNO [facility] SNOMED [facility]) ) Hospital Repository 09/09/2018 Miscellaneous NARCOTICS Nausea/Vom/Diar Unknown Jessica Allergy/899651806( liane [facility]) Hospital Repository Drug LEVAQUIN/23766 U Osmar Pomerene Allergy/726037702( 604(RXNORM) [facility]) [facility] Repository Drug PERCOCET/49120 U Osmar Pomerene Allergy/797768327( 148(RXNORM) [facility]) [facility] Repository Drug VICODIN/291274 U Osmar Pomerene Allergy/400159414( 76(RXNORM) [facility]) [facility] Repository Drug DEMEROL/364437 U Osmar Pomerene Allergy/524894362( 47(RXNORM) [facility]) Hospital Repository Drug MAGNESIUM U Osmar Pomerene Allergy/323507793( [facility]748287 [facility] 56([facility] Hospital Repository ENCOUNTERS ENCOUNTERS ADMIT/DISCHARGE ACCOUNT ADMITTING ENCOUNTER LOCATION SOURCE NUMBER CLASS 12/07/2018 [id number] Ambulatory [address] ing:LAB.FUTUR Repository E 11/07/2018 [id number] Ambulatory [address] ing:CT Repository 11/06/2018 [id number] Ambulatory Building[facility] [place] Practices Repository 11/02/[id number] ing:LAB.FUTUR Repository E 10/31/[id number] ing:POLAB3 Repository 10/31/2018 [id number] Ambulatory [place] Jessica 7 [facility] ing:POLAB3 Repository 10/04/2018/ [id number] Ambulatory Jessica [place] 8 2 [facility] ing:PT Repository 10/02/2018 [id number] Ambulatory Jessica [place] 9 [facility] ing:CVS Repository 10/02/2018 [id number] Ambulatory BMSBuilding:W Jessica 0 [facility] Hospital Repository 09/22/2018 [id number] Ambulatory [place] Jessica 7 [facility] ing[facility]S Repository 09/18/2018 [id number] [place] 8 [facility] Hospital ing:US Repository 09/09/2018/ [id number] Emergency [place] Jessica 8 2 [facility] Hospital ing:ED Repository 09/08/2018 [id number] Ambulatory Jessica Jessica 9 [facility] Hospital ing:LABSPEC Repository 08/18/2018/ [id number] HLIVKO, Ambulatory BuildinR Osmar Lechuga 8 SUSU MCKAY oom: [address] Repository 06/21/2018 [id number] Ambulatory Jessica [place] 1 [facility] ing:HPRAD Repository 06/02/2018 [id number] Ambulatory Jessica Jessica 3 [facility] ing:HPRAD Repository 05/25/2018 [id number] Amb[place] 7 [facility] Hospital ing:HPRAD Repository 05/09/2018 [id number] Ambulatory [place] Jessica 9 [facility] ing:OPBD Repository 03/08/2018 [id number] Ambulatory Jessica [place] 5 [facility] ing:LAB.FUTUR Repository E 02/14/2018 [id number] Ambulatory [place] Jessica 4 [facility] ing:MRI Repository 2018 [id number] Ambulatory Jessica Jessica 3 [facility] ing:USHP Repository 01/31/2018 [id number] Ambulatory [place] Jessica 1 [facility] ing:BI Repository PAYERS PAYERS ENCOUNTER GUARANTOR PAYER SUBSCRIBER SOURCE 12/07/2018 TRAVIS Elam Primary NEISHA A Jessica [id number] N Insurance:MEDICARE BEERYDOB: [facility] PART A BPolicy Number: [id number] [place] [id number] Repository [address]Rgi: 330) Date:2018-11-03 [phone] () 12/07/2018 Secondary NEISHA A Jessica Insurance:HUMANA BEERYDOB: [facility] 6926-01-37RSI Hospital Number: Repository [id number] Date:2580-57-53ZF[address] [address]CO: 12/07/2018 Tertiary NOT GIVENUNK [place] Insurance:SELF PAY [facility] Number: Effective Repository Date:2018-11-03 11/07/2018 TRAVIS Elam Primary NEISHA A Jessica [id number] N Insurance:MEDICARE BEERYDOB: [facility] PART A BPolicy Number: [id number] [place], [place] [id number] Repository 715[address]Whe: (802) Date:2018-10-31 [phone] () 11/07/2018 Secondary NEISHA A Jessica Insurance:HUMANA BEERYDOB: [facility] 0575-00-14WSS Hospital Number: Repository [id number] Date:4440-19-30AD[address] [address]PA: 11/07/2018 Tertiary NOT GIVENUNK Jessica Insurance:SELF PAY [facility] Hospital Number: Effective Repository Date:2018-10-31 11/06/2018 Neisha A Primary Neisha A OHIP Practices BeeryDOB: Insurance:MedicarePoli BeeryDOB: Repository [id number] cy Number: [id number] [facility] [id number] 2 [facility] Date:9419-65-14Pdhu [place] Name:[facility] [place], [place] [address]Eqg: [phone], [place] [address]Ieg: [address]WP: (HP) (HP) [phone] () 11/06/2018 Secondary Neisha A OHIP Practices Insurance:Humana/Suppl BeeryDOB: Repository ement PlanPolicy [id number] Number: [address] [id number] Chapel Date:3798-64-73[place]gd[place], [place] Name:[address] [address]Wxo: [phone], [place] [phone] (HP) [address]PH: 11/06/2018 Tertiary Neisha A OHIP Practices Insurance:CBCA/[facility], BeeryDOB: Repository HPolicy Number: [id number] [address] [place] Date:2005-11-21 - Chap 2936-05-56Ltvu [place], [place] Name:[facility] [address] [address]Ida: ([phone]) 8522[place]ACIRCLEVIL[place], [place] [phone] (HP) [address]NP: 11/06/2018 Tertiary Neisha A OHIP Practices Insurance:Health BeeryDOB: Repository [facility] AshlynPolsean [id number] Number: [address] [id number] Chapel Date:2009-01-19 - [place], [place] 3859-44-79Tszq [address]Iny: (330) Name:[facility] [address] [address]LE [phone] (HP) NOT USE, ADD [place], [place] [address]VN: 11/06/2018 Tertiary Neisha A OHIP Practices Insurance:Medical BeeryDOB: Repository [place] melissa Yepez [id number] Number: [address] [id number] Chapel Date:2011-02-19 - [place], [place] 5432-45-70Bkei [address]Ipd: (330) Name:[phone] (HP) [place], [place] [address]RN: 11/02/2018 TRAVIS Elam Primary NEISHA A Jessica [id number] N Insurance:MEDICARE BEERYDOB: [facility] [place] PART A BPolicy Number: [id number] [place] [id number] Repository [address]Vrn: (330) Date:2018-11-021117 () 11/02/2018 Secondary NEISHA A Jessica Insurance:HUMANA BEERYDOB: Community COMMERCIALPolicy [id number] Hospital Number: Repository [id number] Date:4068-60-35OJ[address] [address]WS: 11/02/2018 Tertiary NOT GIVENUNK [place] Insurance:SELF PAY [facility] Number: Effective Repository Date:2018-11-02 10/31/2018 TRAVIS Elam Primary NEISHA A [place] [id number] N Insurance:MEDICARE BEERYDOB: Community [place] PART A BPolicy Number: [id number] Benton, [place] [id number] Repository [address]Zqr: (268) Date:2018-10-314-0985 () 10/31/2018 Secondary NEISHA A [place] Insurance:HUMANA BEERYDOB: [facility] [id number] Hospital Number: Repository [id number] Date:5850-31-78FW[address] [address]XJ: 10/31/2018 Tertiary NOT GIVENUNK Jessica Insurance:SELF PAY [facility] Hospital Number: Effective Repository Date:2018-10-31 10/31/2018 TRAVIS Elam Primary NEISHA A Jessica [id number] N Insurance:MEDICARE BEERYDOB: Community [facility] PART A BPolicy Number: [id number] Benton, [place] [id number] Repository [address]Tnk: (330) Date:[phone] () 10/31/2018 Secondary NEISHA A [place] Insurance:HUMANA BEERYDOB: Community COMMERCIALPolicy [id number] Hospital Number: Repository [id number] Date:6748-59-38JY[address] [address]YU: 10/31/2018 Tertiary NOT GIVENUNK Jessica Insurance:SELF PAY [facility] Number: Effective Repository Date:2018-10-31 10/04/2018 TRAVIS Elam Primary NEISHA A Jessica [id number] N Insurance:MEDICARE BEERYDOB: [facility] [place] PART A BPolicy Number: [id number] Benton, [place] [id number] Repository [address]Eft: (324) Date:2013-01-19 [phone] () 10/04/2018 Secondary NEISHA A [place] Insurance:HUMANA BEERYDOB: [facility] [id number] Hospital Number: Repository [id number] Date:8842-84-51GF [address] [address]RG: 10/04/2018 Tertiary NOT GIVENUNK Jessica Insurance:SELF PAY [facility] Number: Effective Repository Date:2018-09-26 10/02/2018 TRAVIS Elam Primary NEISHA A [place] [id number] N Insurance:MEDICARE BEERYDOB: [facility] [place] PART A BPolicy Number: [id number] Benton, [place] [id number] Repository [address]Iaz: (922) Date:2018-09-26 [phone] () 10/02/2018 Secondary NEISHA A Jessica Insurance:HUMANA BEERYDOB: [facility] [id number] Hospital Number: Repository [id number] Date:3637-71-65UL[address] [address]HD: 10/02/2018 Tertiary NOT GIVENUNK Jessica Insurance:SELF PAY [facility] Number: Effective Repository Date:2018-09-26 10/02/2018 TRAVIS Elam Primary NEISHA A Jessica [id number] N Insurance:MEDICARE BEERYDOB: Community [facility] [place] PART A BPolicy Number: [id number] Benton, [place] [id number] Repository [address]Okw: 330) Date:2018-09-26 [phone] () 10/02/2018 Secondary NEISHA A Jessica Insurance:HUMANA BEERYDOB: [facility] [id number] Hospital Number: Repository [id number] Date:5847-79-80IF [address] [address]CU: 10/02/2018 Tertiary NOT GIVENUNK [place] Insurance:SELF PAY [facility] Hospital Number: Effective Repository Date:2018-10-02 09/22/2018 TRAVIS lEam Primary NEISHA A [place] [id number] N Insurance:MEDICARE BEERYDOB: Community [facility] [place] PART A BPolicy Number: [id number] Benton, [place] [id number] Repository [address]Uaj: 330) Date:2018-09-13 [phone] () 09/22/2018 Secondary NEISHA A [place] Insurance:HUMANA BEERYDOB: [facility] [id number] Hospital Number: Repository [id number] Date:6194-90-81XE [address] [address]NO: 09/22/2018 Tertiary NOT GIVENUNK Jessica Insurance:SELF PAY [facility] Hospital Number: Effective Repository Date:2018-09-13 09/18/2018 TRAVIS Elam Primary NEISHA A [place] [id number] N Insurance:MEDICARE BEERYDOB: Community [place] [place] PART A BPolicy Number: [id number] Benton, [place] [id number] Repository [address]Njt: 330) Date:2018-09-13 [phone] () 09/18/2018 Secondary NEISHA A Jessica Insurance:HUMANA BEERYDOB: [facility] [id number] Hospital Number: Repository [id number] Date:1036-66-87MF [address] [address]JN: 09/18/2018 Tertiary NOT GIVENUNK [place] Insurance:SELF PAY [facility] Number: Effective Repository Date:2018-09-13 09/09/2018 TRAVIS Elam Primary NEISHA A [place] [id number] N Insurance:MEDICARE BEERYDOB: [facility] [place] PART A BPolicy Number: [id number] Benton, [place] [id number] Repository [address]Pgi: (438) Date:2018-09-09 [phone] () 09/09/2018 Secondary NEISHA A Jessica Insurance:HUMANA BEERYDOB: [facility] [id number] Hospital Number: Repository [id number] Date:2197-15-10UH [address] [address]FC: 09/09/2018 Tertiary NOT GIVENUNK [place] Insurance:SELF PAY [facility] Hospital Number: Effective Repository Date:2018-09-09 09/08/2018 TRAVIS Elam Primary NEISHA A [place] [id number] N Insurance:MEDICARE [facility] [place] PART A BPolicy Number: [id number] [place]enton, [place] [id number] Repository [address]Hod: (138) Date:2018-09-08 [phone] () 09/08/2018 Secondary NEISHA A [place] Insurance:HUMANA BEERYDOB: [facility] [id number] Hospital Number: Repository [id number] Date:1283-88-31IW [address] [address]MU: 09/08/2018 Tertiary NOT GIVENUNK Jessica Insurance:SELF PAY [facility] Hospital Number: Effective Repository Date:2018-09-08 08/18/2018 NEISHA A Primary NEISHA A Osmar Jaclynne BEERYDOB: Insurance:MEDICARE BEERYDOB: [facility] [id number] [facility] [id number] Hospital N KRISTIN Number: 2 N GYCALVIN Repository [facility] [id number] [place], [place] [address]Bgt: Date:Plan Name:[facility] [phone] () 08/18/2018 Secondary NEISHA A Osmar Pomerene Insurance:HUMANA BEERYDOB: [facility] [id number] Hospital OUTPATIENTPolicy 2 [address]ala [address]OSTER Repository Number: [place], [id number] [place] [address] Date: 06/21/2018 TRAVIS Elam Primary NEISHA A Jessica [id number] N Insurance:MEDICARE BEERYDOB: Community [place] [place] PART A BPolicy Number: [id number] Benton, [place] [id number] Repository [address]Nho: (330) Date:2018-06-21 [phone] () 06/21/2018 Secondary NEISHA A Jessica Insurance:HUMANA BEERYDOB: [facility] [id number] Hospital Number: Repository [id number] Date:3079-29-45NK [address] [place] [address]JQ: 06/21/2018 Tertiary NOT GIVENUNK [place] Insurance:SELF PAY [facility] Number: Effective Repository Date:2018-06-21 06/02/2018 TRAVIS Elam Primary NEISHA A Jessica [id number] N Insurance:MEDICARE BEERYDOB: [facility] [place] PART A BPolicy Number: [id number] [place], [place] [id number] Repository [address]Izb: (330) Date:2018-06-02 [phone] () 06/02/2018 Secondary NEISHA A Jessica Insurance:HUMANA BEERYDOB: [facility] [id number] Hospital Number: Repository [id number] Date:4969-00-39TG [address] [place] [address]NT: 06/02/2018 Tertiary NOT GIVENUNK [place] Insurance:SELF PAY [facility] Number: Effective Repository Date:2018-06-02 05/25/2018 TRAVIS Elam Primary NEISHA A Jessica [id number] N Insurance:MEDICARE BEERYDOB: [facility] [place] [place] PART A BPolicy Number: [id number] Benton, [place] [id number] Repository [address]Lrw: (330) Date:2018-05-25 [phone] () 05/25/2018 Secondary NEISHA A [place] Insurance:HUMANA BEERYDOB: [facility] [id number] Hospital Number: Repository [id number] Date:1366-11-87FJ [address] [address]DX: 05/25/2018 Tertiary NOT GIVENUNK [place] Insurance:SELF PAY [facility] Number: Effective Repository Date:2018-05-25 05/09/2018 TRAVIS Elam Primary NEISHA A [place] [id number] N Insurance:MEDICARE BEERYDOB: [facility] [place] PART A BPolicy Number: [id number] [place]enton, [place] [id number] Repository [address]Vej: 330) Date:2018-05-02 [phone] () 05/09/2018 Secondary NEISHA A Jessica Insurance:HUMANA BEERYDOB: [facility] [id number] Hospital Number: Repository [id number] Date:1101-52-34FH [address] [place] [address]EO: 05/09/2018 Tertiary NOT GIVENUNK Jessica Insurance:SELF PAY [facility] Number: Effective Repository Date:2018-05-02 03/08/2018 Travis Elam Primary NEISHA A Jessica [id number] N Insurance:MEDICARE BEERYDOB: [facility] [place] PART A BPolicy Number: [id number] [place]enton, [place] [id number] Repository [address]Ros: (330) Date:2018-03-06 [phone] () 03/08/2018 Secondary NEISHA A Jessica Insurance:HUMANA BEERYDOB: Community COMMERCIALPolicy [id number] Hospital Number: Repository [id number] Date:8075-79-31EF[address] [address]TK: 03/08/2018 Tertiary NOT GIVENUNK [place] Insurance:SELF PAY [facility] Number: Effective Repository Date:2018-03-06 02/14/2018 Travis Elam Primary NEISHA A Jessica [id number] N Insurance:MEDICARE BEERYDOB: [facility] [place] PART A BPolicy Number: [id number] [place]enton, [place] [id number] Repository [address]Tpc: (694) Date:2018-02-07 [phone] () 02/14/2018 Secondary NEISHA A Jessica Insurance:HUMANA BEERYDOB: [facility] [id number] Hospital Number: Repository [id number] Date:7525-08-83XQ[address] [address]VF: 02/14/2018 Tertiary NOT GIVENUNK [place] Insurance:SELF PAY [facility] Number: Effective Repository Date:2018-02-07 2018 Travis Elam Primary NEISHA A [place] [id number] N Insurance:MEDICARE BEERYDOB: [facility] [place] [place] PART A BPolicy Number: [id number] [place], [place] [id number] Repository [address]Jjy: (546) Date:2018-01-30 [phone] () 2018 Secondary NEISHA A [place] Insurance:HUMANA BEERYDOB: [facility] [id number] Hospital Number: Repository [id number] Date:2290-42-49TF [address] [address]KS: 2018 Tertiary NOT GIVENUNK [place] Insurance:SELF PAY [facility] Hospital Number: Effective Repository Date:2018-01-30 01/31/2018 Travis Elam Primary NEISHA A [place] [id number] [address] Insurance:MEDICARE BEERYDOB: [facility] PART A BPolicy Number: [id number] [place], [place] [id number] Repository [address]Uoz: 330) Date:2018-01-10 [phone] () 01/31/2018 Secondary NEISHA A Jessica Insurance:HUMANA BEERYDOB: [facility] [id number] Hospital Number: Repository [id number] Date:0331-80-81PG[address] [address]IV: 01/31/2018 Tertiary NOT GIVENUNK [place] Insurance:SELF PAY [facility] Number: Effective Repository Date:2018-01-10
== END ==
PROVIDERS: Family Provider Internal Medicine; PCP Internal Medicine; Referring Provider Internal Medicine Nephrology; Visit Provider Internal Medicine Nephrology
DX: I10 Essential (primary) hypertension (principal)
CPT/HCPCS: 74175; Q9967

== ENCOUNTER → 2018-12-07 06:54 | Outpatient (CLI) | payer MEDICARE, OTHER, SELFPAY ==
[2018-12-07 07:51] LABS: Albumin, Serum 3.8 g/dL (3.2-5.0); BUN 18 mg/dL (7-18); BUN/Creat Ratio 25.3 RATIO (10-20); Chloride 102 mmol/L (98-107); Creatinine, Serum 0.71 mg/dL (0.55-1.02); EST Glomerular Filtration Rate 86 mL/min (>60); Est Glom Filt Rate - Afr Amer 104 mL/min (>60); Glucose 101 mg/dL (74-106); Phosphorus 3.3 mg/dL (2.5-4.9); Potassium 3.6 mmol/L (3.5-5.1); Sodium Level 139 mmol/L (136-145)
[2018-12-13 15:53] LABS: Cortisol, Urinary Free 8 ug/L (Undefined)
[2018-12-13 16:21] LABS: Aldosterone, Serum 15.4 ng/dL (0.0-30.0); Cortisol, Free 24Ur 11 ug/24 hr (0-50)
--- OUTSIDE RECORDS SUMMARY | 2019-02-10 19:42 | XMS RPT_ITS ---
:1950 Author Organization [place] Support Name Relationship Address Phone TRAVIS MCNEAL Unavailable [address] + [place] [address] ADDIE MCNEAL Unavailable [address] + [place] [address] R Unavailable Unavailable Unavailable TRAVIS MCNEAL Unavailable [address] + [place] [address] ADDIE MCNEAL Unavailable [address] + [place] [address] R Unavailable Unavailable Unavailable TRAVIS MCNEAL Unavailable [address] + [place] [address] ADDIE MCNEAL Unavailable [address] + [place] [address] R Unavailable Unavailable Unavailable TRAVIS MCNEAL Unavailable [address] + [place] [address] ADDIE MCNEAL Unavailable [address] + [place] [address] R Unavailable Unavailable Unavailable TRAVIS MCNEAL Unavailable [address] + [place] [address] ADDIE MCNEAL Unavailable [address] + [place] [address] R Unavailable Unavailable Unavailable TRAVIS MCNEAL Unavailable [address] + [place] [address] ADDIE MCNEAL Unavailable [address] + [place] [address] R Unavailable Unavailable Unavailable TRAVIS MCNEAL Unavailable [address] + [place] [address] ADDIE MCNEAL Unavailable [address] + [place] [address] R Unavailable Unavailable Unavailable TRAVIS MCNEAL Unavailable [address] + [place] [address] ADDIE MCNEAL Unavailable [address] + [place] [address] R Unavailable Unavailable Unavailable TRAVIS MCNEAL Unavailable [address] + [place] [address] ADDIE MCNEAL Unavailable [address] + [place] [address] R Unavailable Unavailable Unavailable TRAVIS MCNEAL Unavailable [address] + [place] [address] ADDIE MCNEAL Unavailable [address] + [place] [address] R Unavailable Unavailable Unavailable TRAVIS MCNEAL Unavailable [address] + [place] [address] ADDIE MCNEAL Unavailable [address] + [place] [address] R Unavailable Unavailable Unavailable TRAVIS MCNEAL Unavailable [address] + [place] [address] ADDIE MCNEAL Unavailable [address] + [place] [address] R Unavailable Unavailable Unavailable NOT GIVEN Unavailable Unavailable Unavailable TRAVIS ELIZABET Unavailable [address] [place] [address] MIGDALIA JARRETT Unavailable [address] [place], [place] [id number] SARMAD MCNEALER Unavailable [address] + [place] [address] ADDIE MCNEAL Unavailable [address] + [place] [address] R Unavailable Unavailable Unavailable DAKOTACatalinoSARMADER Unavailable [address] + [place] [address] BEERADDIE Bae Unavailable [address] + [place] [address] R Unavailable Unavailable Unavailable TRAVIS MCNEAL Unavailable [address] + [place] [address] ADDIE MCNEAL Unavailable [address] + [place] [address] R Unavailable Unavailable Unavailable ELIZABET TRAVIS Unavailable [address] + [place] [address] ADDIE MCNEAL Unavailable [address] + [place] [address] R Unavailable Unavailable Unavailable TRAVIS MCNEAL Unavailable [address] + [place] [address] ADDIE MCNEAL Unavailable [address] + [place] [address] R Unavailable Unavailable Unavailable ELIZABET TRAVIS Unavailable [address] + [place] [address] ADDIE MCNEAL Unavailable [address] + [place] [address] R Unavailable Unavailable Unavailable TRAVIS MCNEAL Unavailable [address] + [place] [address] ADDIE MCNEAL Unavailable [address] + [place] [address] R Unavailable Unavailable Unavailable TRAVIS MCNEAL Unavailable [address] + [place] [address] ADDIE MCNEAL Unavailable [address] + [place] [address] R Unavailable Unavailable Unavailable Care Team Providers [...] Faby, Jessica Primary Care Unavailable Addie Mallory HOUSEHOLD APPLIANCE REPAIRER-C Attending Unavailable Addie Mallory HOUSEHOLD APPLIANCE REPAIRER-C Referring Unavailable Faby, Jessica Primary Care Unavailable Faby, Jessica Attending Unavailable Faby, Jessica Referring Unavailable Faby, Jessica Primary Care Unavailable Ciesa, Winnie Attending Unavailable Ciesa, Winnie Referring Unavailable Faby, Jessica Primary Care Unavailable Afby, Jessica Attending Unavailable Faby, Jessica Referring Unavailable [...] - Essential Marcy Allen Active [facility]primary[facility] hypertension / Hospital I10(ICD-10) Repository 11/30/2018 Unknown M54.12 - Faby, Active [facility] Radiculopathy, [facility] cervical region / Hospital M54.12(ICD-10) Repository 10/20/2018 Unknown R07.9 - Chest Carlos, Baron Active [facility] pain, unspecified Community / R07.9(ICD-10) Hospital Repository 09/08/2018 Unknown Z51.81 - Encounter Faby, Active Jessica for therapeutic [facility] drug level Hospital monitoring / Repository Z51.81(ICD-10) 08/09/2018 Unknown R10.30 - Lower Winnie Samaniego Active [facility] abdominal pain, [facility] unspecified / Hospital R10.30(ICD-10) Repository 08/18/2018 Unknown M89.8X1 - Other Faby, Active Jessica specified [facility] disorders of bone, Hospital shoulder / Repository M89.8X1(ICD-10) 2018 Unknown R10.13 - Faby, Active Jessica Epigastric pain / [facility] R10.13(ICD-10) Hospital Repository 01/31/2018 Unknown Z12.31 - Encounter Faby, Active [facility] for screening [facility] mammogram for Hospital malignant neoplasm Repository of breast / Z12.31(ICD-10) PROCEDURES PROCEDURES No Procedure Records FoundRESULTS RESULTS RENAL PROFILE Collected: 12/07/2018 Status: F Source: [place] 7:02 AM [facility] REPOSITORY TYPE CODE TESTS [...] 30.0 Performed By: #### L500.3600 #### [facility] [address] [place], [address] CORTISOL SERUM Collected: 12/07/2018 Status: F Source: [place] 7:02 AM [facility] TYPE CODE TESTS RESULT OUT OF RANGE REFERENCE UNITS LAB L509.6000 3.09-22.40 ug/dL Normal CORTISOL 10.20 Result Comment: Adult (AM) 4.30 - 22.40 ug/dL Adult (PM) 3.09 - 16.66 ug/dL Performed By: #### L509.6000 #### [facility] [address] [place], [address] ALDOSTERONE, SERUM Collected: 12/07/2018 Status: F Source: [place] 7:02 AM [facility] TYPE CODE TESTS RESULT OUT OF RANGE REFERENCE UNITS LAB L3300.1100 0.0-30.0 ng/dL Normal ALDOSTERON 4374 15.4 Result Comment: This test was developed and its performance characteristics determined by [facility]. It has not been cleared or approved by the Food and Drug Administration. Performed at: [address] [id number] Mate Relief: Tavares Brooks MD, Phone: [phone] Performed By: #### L3300.1100, L3600.5400 #### [facility] (refer to report for specific site) refer to report for address and phone number CORTISOL, 24 HR UR Collected: 12/07/2018 Status: F Source: [place] FREE 7:02 AM [facility] TYPE CODE TESTS RESULT OUT OF [...] 11/07/2018 Status: F Source: [place] 1:49 PM [facility] TYPE CODE TESTS RESULT OUT OF RANGE REFERENCE UNITS LAB L9100.0210 0.55-1.02 mg/dL Normal CREATININE WB 1.0 Performed By: #### L9100.0200 #### [facility] Point of [facility] [address] [place] [address] CTA ABDOMEN W/WO Observed: 11/07/2018 Status: F Source: [place] CONTRAST 1:43 PM [facility] Imaging Services [address] [place] [address] CTA Abdomen W/WO Contrast MR#: [id number] Acct: [id number] Name: NEISHA MCNEAL Rep #: [id number] : 1950 F 68 From: Kvng Michael MD PCP: Jessica Corona DO Status: REG CLI Study: CTA Abdomen W/WO Contrast Date of Exam: 11/07/18 Exam# [id number] Ordering Dr: Marcy Allen DO STUDY: CT [...] Kvng Michael MD at 15:55 EST Tel [phone], Service support , CC: Marcy Allen DO; Jessica Corona DO Salt Maker: Signed MISCELLANEOUS LAB Collected: 10/31/2018 Status: F Source: [place] PROCEDURE 1:17 PM [facility] Order Comment: Comments: [id number],SEP,REF,LAV Test(s) Ordered: [id number],SEP,REF,LAV TYPE CODE TESTS RESULT OUT OF RANGE REFERENCE UNITS LAB L801.1541 Normal [facility] LAB TEST Result Comment: TEST RESULT LIMITS [...] metanephrines and plasma catecholamines. TESTING PERFORMED AT [facility]. ORIGINAL REPORT ON FILE IN LAB CONTAINS ADDITIONAL TEST SITE INFORMATION. Performed By: #### L801.1541 #### [facility] [address] [place], [address] STRESS REPORT Observed: 10/02/2018 Status: F Source: [place] 2:54 PM [facility] Cardiovascular Services [address] [place] [address] MR#: [id number] Acct: [id number] Name: NEISHA MCNEAL Rep #: [id number] : 1950 68 From: Baron Gonzalez MD [...] DO Date Dictated: 10/02/181447 Date Transcribed: 10/02/181447 Salt Maker: CO Signed INITAL EVALUATION (1) Observed: 09/28/2018 Status: F Source: [place] - PT 1:13 PM [facility] Health[address] [place], [place] [address] Fax REHABILITATION SERVICES INITIAL EVALUATION MR#: [id number] Acct: [id number] Name: NEISHA MCNEAL Rep #: [id number] : 1950 68 From: Maliha Rudolph PT, [...] LEFT SHOULDER ORIF FROM FALL - TRIPPED RN TRAVELING [facility] AT [facility]. 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 HTN. GERD. [...] INDEP GAIT AND TRANSFERS. Motor deficit: TOMI FINAL APPLICATION REVIEWER STRENGTH 40 LBS. TOMI UE'S WFL. Sensory [...] to be FAXED BACK to us at [phone] for Medicare purposes. Please let me know if there are questions or concerns regarding this plan of care. Physician Signature: Date: <Electronically signed by Maliha Rudolph PT, Cert. MDT> 09/28/18 1313 CC: Jessica Corona DO NAZANIN Signed For Medicare only, by signing this I certify the plan of care. Physicians Signature Date RENAL ARTERY DUPLEX Observed: 09/24/2018 Status: F Source: [place] 10:13 AM [facility] Cardiovascular Services [address] [place] [address] Renal Artery Duplex Ultrasound 09/22/18 0802 MR#: [id number] Acct: [id number] Name: NEISHA MCNEAL Rep #: [id number] : 1950 68 From: Ciro Maravilla MD Attending Dr: Jessica Corona DO Status: REG CLI Ordering Dr: Jessica Corona DO Date: 09/22/18 Location: [facility] Sex: F C Admitted: Reason For Study: [...] Dictated: 09/22/18 0802 Date Transcribed: 09/24/18 1013 Salt Maker: Signed KIDNEY AND BLADDER Observed: 09/18/2018 Status: F Source: [place] 4:23 PM [facility] Imaging Services [facility] [place] [address] Kidney and Bladder MR#: [id number] Acct: [id number] Name: NEISHA MCNEAL Rep #: [id number] : 1950 F 68 From: Jorge Holland MD PCP: Jessica Corona DO Status: REG CLI Study: Kidney and Bladder Date of Exam: 09/18/18 Exam# [id number] Ordering Dr: Jessica Croona DO STUDY: RENAL ULTRASOUND - COMPLETE REASON [...] Service support , CC: Jessica Corona DO Salt Maker: Signed 12 LEAD ELECTROCARDIOGRAM Observed: 09/12/2018 Status: F Source: [place] 11:06 AM [facility] Cardiovascular Services [address] [place] [address] 12 Lead EKG 09/09/18 0949 MR#: [id number] Acct: [id number] Name: NEISHA MCNEAL Rep #: [id number] : 1950 68 From: Ian Gudino MD [...] ventricular hypertrophy Abnormal ECG Confirmed by TERESE MCAKY, IAN ([id number]), editorial manager CHARITY VILLEGAS ([id number]) on 09/12/2018 11:06:08 AM Referred By: Jessica Corona Confirmed By:IAN GUDINO MD 09/12/18 1106 Date Ian Gudino MD CC: Anel Hunter MD; Jessica Corona DO Signed EMERGENCY DEPARTMENT Observed: 09/09/2018 Status: F Source: [place] SUMMARY 4:33 PM [facility] Medical Records Department [address] [place] [address] Emergency Department Summary 09/09/18 0934 MR#: [id number] Acct: [id number] Name: NEISHA MCNEAL Rep #: [id number] : 1950 68 From: Anel Hunter MD [...] Hypertension, improved This note was generated with Brainjuicer dictation software. It may contain incorrect words, [...] problems, contact your Primary Care Provider. Call [facility] ([phone]) or report to the closest Emergency Room. Call 911 if necessary. 09/09/18 1633 <Electronically signed by Anel Hunter MD> Date Anel Hunter MD Cosigner Signature (If Indicated): Date CC: Jessica Corona DO DISCHARGE INSTRUCTION Observed: 09/09/2018 Status: F Source: [place] 12:07 PM [facility] Medical Records Department [address] [place] [address] Discharge Instruction 09/09/18 1203 MR#: [id number] Acct: [id number] Name: NEISHA MCNEAL Rep #: [id number] : 1950 68 From: Anel Hunter MD PCP: Jessica Corona DO Status: REG ER ED Disposition - Plan for ED Patient: Disposition: Home or Assisted Living Chief Complaint: Hypertension Instructions: ED HTN Established Prescriptions: Amlodipine Besylate [Norvasc] 2.5 mg PO DAILY #30 tablet Clonidine HCl [Catapres] 0.1 mg PO BID PRN #20 tablet PRN Reason: Hypertensive Emergency Referrals: Jessica Cornoa, [Primary Care Provider] - 3-5 Days if not improving What to do if you have Problems For any increased pain, shortness of breath, bleeding, nausea or vomiting, chest pain, or any unexpected problems, contact your Primary Care Provider. Call [facility] ([phone]) or report to the closest Emergency Room. Call 911 if necessary. 09/09/18 1207 <Electronically signed by Anel Hunter MD> Date Anel Hunter MD Cosigner Signature (If Indicated): Date CC: Jessica Corona DO CBC W/DIFF, AUTOMATED Collected: 09/09/2018 Status: F Source: [place] 9:38 AM [facility] [place] TYPE CODE TESTS RESULT OUT OF [...] 1.21 Performed By: #### L100.0100 #### [facility] [address] [place], [address] BASIC METABOLIC Collected: 09/09/2018 Status: F Source: [place] PROFILE (BMP) 9:38 AM [facility] [place] TYPE CODE TESTS RESULT OUT OF [...] 7 Performed By: #### L500.2500 #### [facility] [address] [place], [address] BRAIN/HEAD WITHOUT Observed: 09/09/2018 Status: F Source: [place] CONTRAST 9:31 AM [facility] [place] Imaging Services [address] [place] [address] Brain/Head without Contrast MR#: [id number] Acct: [id number] Name: NEISHA MCNEAL Rep #: [id number] : 1950 F 68 From: Italo Brown DO PCP: Jessica Corona DO Status: REG ER Study: Brain/Head without Contrast Date of Exam: 09/09/18 Exam# [id number] Ordering Dr: Anel Hunter MD STUDY: CT [...] CC: Anel Hunter MD; Jessica Corona DO Salt Maker: Signed BASIC METABOLIC Collected: 09/08/2018 Status: F Source: [place] PROFILE ([facility]) 10:49 AM [facility] [place] TYPE CODE TESTS RESULT OUT OF [...] 5 Performed By: #### L500.2500 #### [facility] [address] [place], [address] FINAL SURGICAL Observed: 08/18/2018 Status: F Source: [facility] PATHOLOGY REPORT 2:32 PM [facility] REPOSITORY . Pathology Reports Accession: Collected Date/Time: Received Date/Time: Pathologist: [id number] 08/18/2018 14:32 EDT 08/18/2018 14:32 EDT DO JENNIFER MCGILL Final Surgical Pathology Report DIAGNOSIS: A) DUODENUM: - NO SPECIFIC HISTOPATHOLOGIC CHANGES. B) GASTRIC ANTRUM: - REACTIVE GASTROPATHY. - Negative for H. Pylori. C) GASTRIC: - FRAGMENTS CONSISTENT WITH FUNDIC GLAND POLYP. D) G-E JUNCTION: - JUNCTIONAL MUCOSA WITH NO SPECIFIC HISTOPATHOLOGIC CHANGES. - Negative for intestinal metaplasia. COMMENT: [facility]# [id number] CLINICAL INFORMATION: CHRONIC NAUSEA SPECIMEN: A DUODENUM, [...] cm. TS -1 Dictated by Manuela HILLS ([facility]) MICROSCOPIC DESCRIPTION: Slides reviewed. Electronically Signed by Pathology Report verified by [facility] Electronically signed by JENNIFER MCGILL DO Sign out Date: 08/21/2018 13:18 Performing Lab: [address] Performed By: #### SPFR #### [place] [address] Observed: 08/18/2018 Status: F Source: [place] H.PYLORI SCREEN(CLOTEST) 10:51 AM [facility] REPOSITORY H.PYLORI SCREEN(CLOtest) CLOtest 1 hour _NEGATIVE [...] SYMPTOMS OF GASTROINTESTINAL DISEASE. Performed By: #### [id number] #### [facility],[address] [place], [place] [address] OPERATIVE PROCEDURES Observed: 08/18/2018 Status: F Source: [facility] 8:12 AM [facility] OPERATIVE REPORT NAME ACCOUNT SEX AGE ADMIT DISCHARGE PT MED. RECORD# NUMBER DATE DATE TYPE ELIZABET [id number] Patricia 68 08/18/18 08/18/18 2 NEISHA Jalloh 303137 ROOM: [facility] DATE OF : 1950 DICTATING PHYSICIAN: Susu Valerio DATE OF SURGERY: August 18, 2018. SURGEON: Susu Valerio M.D. SUPERVISOR LAST MODEL DEPARTMENT: ANESTHESIOLOGIST: ANESTHETIC: Please see anesthesia notes for [...] Susu Valerio MD 08/18/18 10:18 JOB #: [id number] Transcribed By: tequila 08/18/18 20:41 Electronically signed by: E-SIGN: DR. VALERIO 09/01/18 07:40 Page 2 of 2 NEISHA MCNEAL Operative Report ABD INC DECUB Observed: 06/21/2018 Status: F Source: [place] AND/OR ERECT 9:12 AM [facility] Imaging Services [address] [place] [address] Abd Inc Decub and/or Erect MR#: [id number] Acct: [id number] Name: NEISHA MCNEAL Rep #: [id number] : 1950 F 68 From: Tapan Gore MD PCP: Jessica Corona DO Status: REG CLI Study: Abd Inc Decub and/or Erect Date of Exam: 06/21/18 Exam# [id number] Ordering Dr: Winnie Samaniego STUDY: X-RAY - [...] , Service support , CC: Winnie Samaniego HOUSEHOLD APPLIANCE REPAIRER; Jessica Corona DO Salt Maker: Signed CERV SPINE 2 OR 3 Observed: 06/02/2018 Status: F Source: [place] VIEWS 8:19 AM [facility] Imaging Services [address] [place] [address] Cerv Spine 2 or 3 Views MR#: [id number] Acct: [id number] Name: NEISHA MCNEAL Rep #: [id number] : 1950 F 68 From: Jamil Paulson MD PCP: Jessica Corona DO Status: REG CLI Study: Cerv Spine 2 or 3 Views Date of Exam: 06/02/18 Exam# [id number] Ordering Dr: Jessica Corona DO STUDY: X-RAY [...] Service support , CC: Jessica Corona DO Salt Maker: Signed L/S SPINE MIN 4 Observed: 05/25/2018 Status: F Source: [place] VIEWS 9:43 AM [facility] Imaging Services [address] [place] [address] L/S Spine Min 4 Views MR#: [id number] Acct: [id number] Name: NEISHA MCNEAL Rep #: [id number] : 1950 F 68 From: Mikayla Guerrier MD PCP: Jessica Corona DO Status: REG CLI Study: L/S Spine Min 4 Views Date of Exam: 05/25/18 Exam# [id number] Ordering Dr: Addie Mallory STUDY: X-RAY - [...] , CC: DEYSI Mallory; Jessica Corona DO Salt Maker: Signed DEXA BONE DENSITY Observed: 05/09/2018 Status: F Source: [place] STUDY 8:25 AM [facility] Imaging Services [address] [place] [address] Dexa Bone Density Study MR#: [id number] Acct: [id number] Name: NEISHA MCNEAL Rep #: [id number] : 1950 F 68 From: Kvng Michael MD PCP: Jessica Corona DO Status: REG CLI Study: Dexa Bone Density Study Date of Exam: 05/09/18 Exam# [id number] Ordering Dr: Jessica Corona DO STUDY: DUAL [...] Kvng Michael MD at 8:25 EDT Tel [phone], Service support , CC: Jessica Corona DO Salt Maker: Signed LIVER PROFILE Collected: 03/08/2018 Status: F Source: [place] 6:56 AM [facility] TYPE CODE TESTS RESULT OUT OF [...] BILI 0.12 Performed By: #### L500.3400, L500.4100, L501.26120, L501.9520, L506.0400 #### [facility] [address] [place], [address] LIPID PROFILE Collected: 03/08/2018 Status: F Source: [place] 6:56 AM [facility] TYPE CODE TESTS RESULT OUT OF [...] VLDL 34 Performed By: #### L500.3400, L500.4100, L501.05977, L501.9520, L506.0400 #### [facility] [address] [place], [address] FREE T3 Collected: 03/08/2018 Status: F Source: [place] 6:56 AM [facility] TYPE CODE TESTS RESULT OUT OF RANGE REFERENCE UNITS LAB L501.16081 2.18-3.98 pg/mL Normal FREE T3 2.7 Performed By: #### L500.3400, L500.4100, L501.92516, L501.9520, L506.0400 #### [facility] [place], [address] THYROID STIM HORMONE Collected: 03/08/2018 Status: F Source: [place] (TSH) 6:56 AM [facility] TYPE CODE TESTS RESULT OUT OF RANGE REFERENCE UNITS LAB L501.9520 0.358-3.74 uIU/mL Normal TSH 3.42 Performed By: #### L500.3400, L500.4100, L501.05529, L501.9520, L506.0400 #### [facility] [place], [address] T4 FREE DIRECT Collected: 03/08/2018 Status: F Source: [place] 6:56 AM [facility] TYPE CODE TESTS RESULT OUT OF RANGE REFERENCE UNITS LAB L506.0400 0.76-1.46 ng/dL Normal T4 FREE 0.97 DIRECT Performed By: #### L500.3400, L500.4100, L501.99761, L501.9520, L506.0400 #### [facility] [place], [address] MRCP ABDOMEN WITHOUT Observed: 02/14/2018 Status: F Source: [place] CONTRAST 12:37 PM [facility] Imaging Services [address] [place] [address] MRCP Abdomen without Contrast MR#: [id number] Acct: [id number] Name: NEISHA MCNEAL Rep #: [id number] : 1950 F 68 From: Vj Rajput MD PCP: Jessica Corona DO Status: REG CLI Study: MRCP Abdomen without Contrast Date of Exam: 02/14/18 Exam# [id number] Ordering Dr: Jessica Corona DO STUDY: MR [...] Service support , CC: Jessica Corona DO Salt Maker: Signed ABDOMEN LIMITED Observed: 2018 Status: F Source: [place] 9:48 AM [facility] Imaging Services [address] [place] [address] Abdomen Limited MR#: [id number] Acct: [id number] Name: NEISHA MCNEAL Rep #: [id number] : 1950 F 68 From: Kvng Michael MD PCP: Jessica Corona DO Status: REG CLI Study: Abdomen Limited Date of Exam: 02/03/18 Exam# [id number] Ordering Dr: Jessica Corona DO STUDY: ABDOMINAL [...] Kvng Michael MD at 13:52 EDT Tel [phone], Service support , CC: Jessica Corona DO Salt Maker: Signed SCREENING MAMM (CAD), Observed: 01/31/2018 Status: F Source: [place] BILAT 1:17 PM [facility] Imaging Services [address] [place] [address] SCREENING MAMM (CAD), BILAT MR#: [id number] Acct: [id number] Name: NEISHA MCNEAL Rep #: [id number] : 1950 F 67 From: Kvng Michael MD PCP: Jessica Corona DO Status: REG CLI Study: SCREENING MAMM (CAD), BILAT Date of Exam: 01/31/18 Exam# [id number] Ordering Dr: Jessica Corona DO MAMMOGRAPHY - [...] delay biopsy of a clinically suspicious abnormality. [id number] Electronically Signed: Kvng Michael MD at 14:26 EDT Tel [phone], Service support , CC: Jessica Corona DO Salt Maker: Signed ALLERGIES ALLERGIES DATE TYPE / CODE NAME / CODE REACTION SEVERITY SOURCE 09/09/2018 Drug adhesive/F0060 blisters Unknown Jessica Allergy/[id number]( 258[facility] Repository 09/09/2018 Drug levofloxacin/F TENDONITIS Unknown Jessica Allergy/[id number]( [id number]([facility]NO [facility] ) Hospital Repository 09/09/2018 Miscellaneous NARCOTICS Nausea/Vom/Diar Unknown Jessica Allergy/004005176( [facility] Repository Drug LEVAQUIN/20298 U Osmar Pomerene Allergy/639663894( 604(RXNORM) [facility]) [facility] Repository Drug PERCOCET/34424 U Osmar Pomerene Allergy/688067651( 148(RXNORM) [facility]) [facility] Repository Drug VICODIN/960813 U Osmar Pomerene Allergy/468449582( 76(RXNORM) [facility]) [facility] Repository Drug DEMEROL/316316 U Osmar Pomerene Allergy/734388501( 47(RXNORM) [facility]) Hospital Repository Drug MAGNESIUM U Osmar Pomerene Allergy/262530111( [facility]11[facility] Repository ENCOUNTERS ENCOUNTERS ADMIT/DISCHARGE ACCOUNT ADMITTING ENCOUNTER LOCATION SOURCE NUMBER CLASS 12/07/2018 [id number] Ambulatory [address] ing:LAB.FUTUR Repository E 11/07/2018 [id number] Ambulatory [address] ing:CT Repository 11/06/2018 [id number] Ambulatory Building:[facility] [place] Practices Repository 11/02/[id number] ing:LAB.FUTUR Repository E 10/31/[id number] ing:POLAB3 Repository 10/31/2018 [id number] Ambulatory [place] Jessica 7 [facility] ing:POLAB3 Repository 10/04/2018/ [id number] Ambulatory Jessica [place] 8 2 [facility] ing:PT Repository 10/02/2018 [id number] Ambulatory Jessica [place] 9 [facility] Hospital ing:CVS Repository 10/02/2018 [id number] Ambulatory BMSBuilding:W Jessica 0 [facility] Hospital Repository 09/22/2018 [id number] Ambulatory [place] Jessica 7 [facility]S Repository 09/18/2018 [id number] Ambulatory [place] 8 [facility] Hospital ing:US Repository 09/09/2018/ [id number] Emergency [place] Jessica 8 2 [facility] ing:ED Repository 09/08/2018 [id number] Ambulatory Jessica Jessica 9 [facility] Hospital ing:LABSPEC Repository 08/18/2018/ [id number] HLIVKO, Ambulatory BuildinR Osmar Lechuga 8 SUSU MCKAY oom: [address] Repository 06/21/2018 [id number] Ambulatory [place] 1 [facility] Hospital ing:HPRAD Repository 06/02/2018 [id number] Ambulatory Jessica Jessica 3 [facility] ing:HPRAD Repository 05/25/2018 [id number] Ambulatory [place] 7 [facility] Hospital ing:HPRAD Repository 05/09/2018 [id number] Ambulatory [place] Jessica 9 [facility] Hospital ing:OPBD Repository 03/08/2018 [id number] Ambulatory Jessica [place] 5 [facility] Hospital ing:LAB.FUTUR Repository E 02/14/2018 [id number] Ambulatory [place] Jessica 4 [facility] ing:MRI Repository 2018 [id number] Ambulatory Jessica Jessica 3 [facility] Hospital ing:USHP Repository 01/31/2018 [id number] Ambulatory [place] Jessica 1 [facility] ing:BI Repository PAYERS PAYERS ENCOUNTER GUARANTOR PAYER SUBSCRIBER SOURCE 12/07/2018 TRAVIS Elam Primary NEISHA A Jessica [id number] N Insurance:MEDICARE BEERYDOB: [facility] PART A BPolicy Number: [id number] [id number] Repository 410[address]Inu: 330) Date:2018-11-03 [phone] () 12/07/2018 Secondary NEISHA A Jessica Insurance:HUMANA [facility]ERYDOB: [facility] [id number] Hospital Number: Repository [id number] Date:4053-17-09HX[address] [address]KX: 12/07/2018 Tertiary NOT GIVENUNK [place] Insurance:SELF PAY [facility] Number: Effective Repository Date:2018-11-03 11/07/2018 TRAVIS Elam Primary NEISHA A Jessica [id number] N Insurance:MEDICARE BEERYDOB: [facility] PART A BPolicy Number: [id number], [place] [id number] Repository [address]12[address]Abm: (680) Date:2018-10-31 [phone] () 11/07/2018 Secondary NEISHA A Jessica Insurance:HUMANA BEERYDOB: [facility] [id number] Hospital Number: Repository [id number] Date:4362-36-23EA[address] [address]PT: 11/07/2018 Tertiary NOT GIVENUNK Jessica Insurance:SELF PAY [facility] Number: Effective Repository Date:2018-10-31 11/06/2018 Neisha A Primary Neisha A OHIP Practices BeeryDOB: Insurance:MedicarePoli BeeryDOB: Repository [id number] cy Number: [id number] [facility] [id number] 2 [facility] Date:6890-43-88Rswi [place] Name:[facility] [place], [place] [address]Qmd: (568) [phone], [place] [address]Sad: [address]WP: (HP) (HP) [phone] () 11/06/2018 Secondary Neisha A OHIP Practices Insurance:Humana/Suppl BeeryDOB: Repository ement PlanPolicy [id number] Number: [address] [id number] Chapel Date:3266-19-34RxjuMayaguez, [place] Name:[address] [address]Bed: [phone]) [phone], [place] [phone] (HP) [address]VD: 11/06/2018 Tertiary Neisha A OHIP Practices Insurance:CBCA/[facility], BeeryDOB: Repository HPolicy Number: [id number] [address] [place] [address] Date:2005-11-21 - Chap 8644-55-76Xweh [place], [place] Name:[facility] [address] [address]Ewt: ([phone]) 3059FEABRACKETTVILLE, [place] [phone] (HP) [address]BF: 11/06/2018 Tertiary Neisha A OHIP Practices Insurance:Health BeeryDOB: Repository [facility] AshlynPolsean [id number] Number: [address] [id number] Chapel Date:2009-01-19 - [place], [place] 3362-01-53Xswb [address]Ekp: (330) Name:[facility] [address] [address]UK [phone] (HP) NOT USE, [place] [address]YU: 11/06/2018 Tertiary Neisha A OHIP Practices Insurance:Medical BeeryDOB: Repository [place] melissa Yepez [id number] Number: [address] [id number] Chapel Date:2011-02-19 - [place] 2486-88-11Evzs [address]Pgk: (330) Name:[phone] (HP) [address], [place] [address]QQ: 11/02/2018 TRAVIS Elam Primary NEISHA A Jessica [id number] N Insurance:MEDICARE BEERYDOB: Community [place] PART A BPolicy Number: [id number], [place] [id number] Repository 230[address]Pln: (330) Date:2018-11-021790 () 11/02/2018 Secondary NEISHA A Jessica Insurance:HUMANA BEERYDOB: Community COMMERCIALPolicy [id number] Hospital Number: Repository [id number] Date:0668-87-05XD[address] [address]BW: 11/02/2018 Tertiary NOT GIVENUNK [place] Insurance:SELF PAY [facility] Number: Effective Repository Date:2018-11-02 10/31/2018 TRAVIS Elam Primary NEISHA A [place] [id number] N Insurance:MEDICARE BEERYDOB: Community [place] PART A BPolicy Number: [id number], [place] [id number] Repository [address]Icb: (955) Date:[phone] () 10/31/2018 Secondary NEISHA A [place] Insurance:HUMANA BEERYDOB: [facility] [id number] Hospital Number: Repository [id number] Date:4964-81-95MK[address] [address]JL: 10/31/2018 Tertiary NOT GIVENUNK Jessica Insurance:SELF PAY [facility] Number: Effective Repository Date:2018-10-31 10/31/2018 TRAVIS Elam Primary NEISHA A Jessica [id number] N Insurance:MEDICARE BEERYDOB: Community [place] PART A BPolicy Number: [id number], [place] [id number] Repository 117[address]Bgw: (330) Date:[phone] () 10/31/2018 Secondary NEISHA A [place] Insurance:HUMANA BEERYDOB: Community COMMERCIALPolicy [id number] Hospital Number: Repository [id number] Date:5530-52-05FP[address] [address]CS: 10/31/2018 Tertiary NOT GIVENUNK Jessica Insurance:SELF PAY [facility] Number: Effective Repository Date:2018-10-31 10/04/2018 TRAVIS Elam Primary NEISHA A Jessica [id number] N Insurance:MEDICARE BEERYDOB: Community [place] PART A BPolicy Number: [id number], [place] [id number] Repository [address]Ytg: (625) Date:2013-01-19 [phone] () 10/04/2018 Secondary NEISHA A [place] Insurance:HUMANA BEERYDOB: [facility] [id number] Hospital Number: Repository [id number] Date:7969-42-59HQ [address] [address]XD: 10/04/2018 Tertiary NOT GIVENUNK Jessica Insurance:SELF PAY [facility] Number: Effective Repository Date:2018-09-26 10/02/2018 TRAVIS Elam Primary NEISHA A [place] [id number] N Insurance:MEDICARE BEERYDOB: Community [place] PART A BPolicy Number: [id number], [place] [id number] Repository [address]Zzv: (354) Date:2018-09-26 [phone] () 10/02/2018 Secondary NEISHA A Jessica Insurance:HUMANA BEERYDOB: [facility] [id number] Hospital Number: Repository [id number] Date:7983-01-17YK[address] [address]CJ: 10/02/2018 Tertiary NOT GIVENUNK Jessica Insurance:SELF PAY [facility] Number: Effective Repository Date:2018-09-26 10/02/2018 TRAVIS Elam Primary NEISHA A Jessica [id number] N Insurance:MEDICARE BEERYDOB: Community [place] PART A BPolicy Number: [id number], [place] [id number] Repository [address]Cwe: 330) Date:2018-09-26 [phone] () 10/02/2018 Secondary NEISHA A Jessica Insurance:HUMANA BEERYDOB: [facility] [id number] Hospital Number: Repository [id number] Date:0330-13-17WZ [address] [address]CA: 10/02/2018 Tertiary NOT GIVENUNK [place] Insurance:SELF PAY [facility] Number: Effective Repository Date:2018-10-02 09/22/2018 TRAVIS Elam Primary NEISHA A [place] [id number] N Insurance:MEDICARE BEERYDOB: Community [place] PART A BPolicy Number: [id number], [place] [id number] Repository [address]Yuf: 330) Date:2018-09-13 [phone] () 09/22/2018 Secondary NEISHA A [place] Insurance:HUMANA BEERYDOB: [facility] [id number] Hospital Number: Repository [id number] Date:5719-12-87IM [address] [address]KU: 09/22/2018 Tertiary NOT GIVENUNK Jessica Insurance:SELF PAY [facility] Number: Effective Repository Date:2018-09-13 09/18/2018 TRAVIS Elam Primary NEISHA A [place] [id number] N Insurance:MEDICARE BEERYDOB: Community [place] PART A BPolicy Number: [id number], [place] [id number] Repository [address]Nko: 330) Date:2018-09-13 [phone] () 09/18/2018 Secondary NEISHA A Jessica Insurance:HUMANA BEERYDOB: [facility] [id number] Hospital Number: Repository [id number] Date:4998-37-32KZ [address] [address]WJ: 09/18/2018 Tertiary NOT GIVENUNK [place] Insurance:SELF PAY [facility] Number: Effective Repository Date:2018-09-13 09/09/2018 TRAVIS Elam Primary NEISHA A [place] [id number] N Insurance:MEDICARE BEERYDOB: [facility] [place] PART A BPolicy Number: [id number], [place] [id number] Repository [address]Iop: (724) Date:2018-09-09 [phone] () 09/09/2018 Secondary NEISHA A Jessica Insurance:HUMANA BEERYDOB: [facility] [id number] Hospital Number: Repository [id number] Date:5696-38-25PG [address] [address]QU: 09/09/2018 Tertiary NOT GIVENUNK [place] Insurance:SELF PAY [facility] Number: Effective Repository Date:2018-09-09 09/08/2018 TRAVIS Elam Primary NEISHA A [place] [id number] N Insurance:MEDICARE [facility] [place] PART A BPolicy Number: [id number], [place] [id number] Repository [address]Boq: (358) Date:2018-09-08 [phone] () 09/08/2018 Secondary NEISHA A [place] Insurance:HUMANA BEERYDOB: [facility] [id number] Hospital Number: Repository [id number] Date:9137-78-04HM [address] [address]EG: 09/08/2018 Tertiary NOT GIVENUNK Jessica Insurance:SELF PAY [facility] Number: Effective Repository Date:2018-09-08 08/18/2018 NEISHA A Primary NEISHA A Osmar Jaclynne BEERYDOB: Insurance:MEDICARE BEERYDOB: [facility] [id number] [facility] [id number] Hospital N KRISTIN Number: 2 N GYCALVIN Repository [facility] [id number] [place], [place] [address]Uox: Date:Plan Name:[facility] [phone] () 08/18/2018 Secondary NEISHA A Osmar Pomerene Insurance:HUMANA BEERYDOB: [facility] [id number] Hospital OUTPATIENTPolicy 2 Mikala FOSTER Repository Number: VIDAL, [id number] [place] [address] Date: 06/21/2018 TRAVIS Elam Primary NEISHA A Jessica [id number] N Insurance:MEDICARE BEERYDOB: Community [place] PART A BPolicy Number: [id number], [place] [id number] Repository [address]Bfl: (330) Date:2018-06-21 [phone] () 06/21/2018 Secondary NEISHA A Jsesica Insurance:HUMANA BEERYDOB: [facility] [id number] Hospital Number: Repository [id number] Date:7338-06-53SA [address] [place] [address]XL: 06/21/2018 Tertiary NOT GIVENUNK [place] Insurance:SELF PAY [facility] Number: Effective Repository Date:2018-06-21 06/02/2018 TRAVIS Elam Primary NEISHA A Jessica [id number] N Insurance:MEDICARE BEERYDOB: Community [place] PART A BPolicy Number: [id number], [place] [id number] Repository [address]Rqz: (330) Date:2018-06-02 [phone] () 06/02/2018 Secondary NEISHA A Jessica Insurance:HUMANA BEERYDOB: [facility] [id number] Hospital Number: Repository [id number] Date:3960-36-84FE [address] [place] [address]JR: 06/02/2018 Tertiary NOT GIVENUNK [place] Insurance:SELF PAY [facility] Number: Effective Repository Date:2018-06-02 05/25/2018 TRAVIS Elam Primary NEISHA A Jessica [id number] N Insurance:MEDICARE BEERYDOB: Community [place] PART A BPolicy Number: [id number], [place] [id number] Repository [address]Nty: (330) Date:2018-05-25 [phone] () 05/25/2018 Secondary NEISHA A [place] Insurance:HUMANA BEERYDOB: [facility] [id number] Hospital Number: Repository [id number] Date:6261-04-68JM [address] [address]ZC: 05/25/2018 Tertiary NOT GIVENUNK [place] Insurance:SELF PAY [facility] Number: Effective Repository Date:2018-05-25 05/09/2018 TRAVIS Elam Primary NEISHA A [place] [id number] N Insurance:MEDICARE BEERYDOB: Community [place] PART A BPolicy Number: [id number], [place] [id number] Repository [address]Imj: 330) Date:2018-05-02 [phone] () 05/09/2018 Secondary NEISHA A Jessica Insurance:HUMANA BEERYDOB: [facility] [id number] Hospital Number: Repository [id number] Date:3785-26-50HV [address] [place] [address]QZ: 05/09/2018 Tertiary NOT GIVENUNK Jessica Insurance:SELF PAY [facility] Number: Effective Repository Date:2018-05-02 03/08/2018 Travis Elam Primary NEISHA A Jessica [id number] N Insurance:MEDICARE BEERYDOB: [facility] [place] PART A BPolicy Number: [id number], [place] [id number] Repository [address]Fgr: (330) Date:2018-03-06 [phone] () 03/08/2018 Secondary NEISHA A Jessica Insurance:HUMANA BEERYDOB: Community COMMERCIALPolicy [id number] Hospital Number: Repository [id number] Date:7203-97-24HD[address] [address]HH: 03/08/2018 Tertiary NOT GIVENUNK [place] Insurance:SELF PAY [facility] Number: Effective Repository Date:2018-03-06 02/14/2018 Travis Elam Primary NEISHA A Jessica [id number] N Insurance:MEDICARE BEERYDOB: [facility] [place] PART A BPolicy Number: [id number], [place] [id number] Repository [address]Thl: (449) Date:2018-02-07 [phone] () 02/14/2018 Secondary NEISHA A Jessica Insurance:HUMANA BEERYDOB: [facility] [id number] Hospital Number: Repository [id number] Date:4801-93-84MA[address] [address]TJ: 02/14/2018 Tertiary NOT GIVENUNK [place] Insurance:SELF PAY [facility] Number: Effective Repository Date:2018-02-07 2018 Travis Elam Primary NEISHA A [place] [id number] N Insurance:MEDICARE BEERYDOB: [facility] [place] PART A BPolicy Number: [id number], [place] [id number] Repository [address]Clw: (252) Date:2018-01-30 [phone] () 2018 Secondary NEISHA A [place] Insurance:HUMANA BEERYDOB: [facility] [id number] Hospital Number: Repository [id number] Date:2163-81-82YG [address] [address]ET: 2018 Tertiary NOT GIVENUNK [place] Insurance:SELF PAY [facility] Number: Effective Repository Date:2018-01-30 01/31/2018 Travis Elam Primary NEISHA A [place] [id number] Insurance:MEDICARE BEERYDOB: [facility] PART A BPolicy Number: [id number], [place] [id number] Repository [address]Azj: 330) Date:2018-01-10 [phone] () 01/31/2018 Secondary NEISHA A Jessica Insurance:HUMANA BEERYDOB: [facility] [id number] Hospital Number: Repository [id number] Date:6889-72-26YP[address] [address]FM: 01/31/2018 Tertiary NOT GIVENUNK [place] Insurance:SELF PAY [facility] Number: Effective Repository Date:2018-01-10
== END ==
PROVIDERS: Family Provider Internal Medicine; PCP Internal Medicine; Referring Provider Internal Medicine Nephrology; Visit Provider Internal Medicine Nephrology
DX: E87.5 Hyperkalemia (principal); I10 Essential (primary) hypertension
CPT/HCPCS: 36415; 80069; 82088; 82530; 82533

== ENCOUNTER → 2019-02-27 07:33 | Outpatient (CLI) | payer MEDICARE, OTHER, SELFPAY ==
--- NOTE | 2019-02-27 07:37 | BI_ITS ---
MAMMOGRAPHY - BILATERAL SCREENING REASON FOR EXAM: Female, 69 years old. Routine annual screening examination. PERTINENT HISTORY: Sisters with breast cancer. Aunt with breast cancer. TECHNIQUE: Digital bilateral breast stacy (3D mammographic acquisition) in the CC and MLO projections. 2-D mediolateral oblique (MLO) and craniocaudad (CC) views of both breasts were obtained. CAD: Full Field Digital Mammography with Computer Added Detection was performed. COMPARISON: Comparison is made with prior study dated January 31, 2018 and December 15, 2016. FINDINGS: Breast Composition: There are scattered areas of fibroglandular density. There are no dominant masses or suspicious calcifications. Stable 5.4 mm x 6.5 mm well-defined nodular density were a central fatty notch in the inferior lateral portion of the right breast. This is suggestive of a small lymph node. No other significant abnormalities are identified. There has been no significant change since the prior study. BI/SCREENING MAMM (CAD), BILAT IMPRESSION: Stable bilateral screening mammogram. Yearly follow-up mammogram recommended. (A) ASSESSMENT CATEGORY: BIRADS Category 2: Benign. A letter regarding these results will be sent to the patient by the facility within 30 days. Approximately 10% of breast cancers are not detected by mammography. A normal mammogram should not delay biopsy of a clinically suspicious abnormality. [id number] Electronically Signed: Kvng Michael, at 9:58 EDT , Service support ,
== END ==
PROVIDERS: Family Provider Internal Medicine; PCP Internal Medicine; Referring Provider Internal Medicine; Visit Provider Internal Medicine
DX: Z12.31 Encounter for screening mammogram for malignant neoplasm of breast (principal)
CPT/HCPCS: 77063; 77067

== ENCOUNTER → 2019-04-04 10:36 | Outpatient (CLI) | payer MEDICARE, OTHER, SELFPAY ==
--- NOTE | 2019-04-04 10:40 | RAD_ITS ---
STUDY: X-RAY - LEFT KNEE REASON FOR EXAM: Female, 69 years old. Knee pain. TECHNIQUE: 4 view(s) of the knee. COMPARISON: None. FINDINGS: Degenerative spur seen along the medial femoral condyle. Normal visualized proximal tibia and fibula. Normal proximal tibiofibular articulation. There is severe degenerative arthrosis of the medial femorotibial compartment with severe joint space narrowing. Normal lateral femorotibial compartment. Normal patellofemoral articulation. The soft tissue structures are unremarkable. RAD/Knee 4 or More Views IMPRESSION: Degenerative arthrosis. Electronically Signed: Kvng Michael, at 15:54 EDT , Service support ,
--- NOTE | 2019-04-04 10:40 | RAD_ITS ---
STUDY: X-RAY - RIGHT KNEE REASON FOR EXAM: Female, 69 years old. Pain TECHNIQUE: 4 view(s) of the knee. COMPARISON: None. FINDINGS: There is demineralization of the visualized distal femur. There is demineralization of the tibia and fibula. Normal proximal tibiofibular articulation. There is no demonstrated fracture. There is moderate degenerative arthrosis of the medial femorotibial compartment with moderate joint space narrowing. There is mild degenerative arthrosis of the lateral femorotibial compartment. There is mild degenerative arthrosis of the patellofemoral articulation. There is a soft tissue prominence in the suprapatellar region suggesting a small volume joint effusion. The soft tissue structures are unremarkable. RAD/Knee 4 or More Views IMPRESSION: Degenerative arthrosis. Electronically Signed: Jorge Holland MD at 18:48 EDT , Service support ,
== END ==
PROVIDERS: Family Provider Internal Medicine; PCP Internal Medicine; Referring Provider Internal Medicine; Visit Provider Internal Medicine
DX: M25.561 Pain in right knee (principal); M25.562 Pain in left knee
CPT/HCPCS: 73564

== ENCOUNTER 2019-06-29 07:00 | Outpatient (RCR) | payer MEDICARE, OTHER, SELFPAY ==
--- NOTE | 2019-05-29 08:29 | HP.PTEVAL_ITS ---
Patient's Visit Information NEISHA MCNEAL is a 69 year old F referred to Physical Therapy by Xavi Xiao MD with a diagnosis of Bilateral Knee OA. Date of Evaluation: 05/29/19 Physical Therapist: Charlette Dallas DPT - Visit Plan Frequency: 2x /Week Duration: 4 Weeks Plan: Bilateral Knee OA- Focus on LE and core strength/stabilization with functional mobility - Subjective Findings: Patient reports that she has had problems on/off for prob 10-12 years. The right was always worse but now they are both bad. Has had injections in the right side- about a year ago with insidious onset. Has had x-rays in both and they have OA- had cortisone injections about 2 weeks ago in both knees. The cortisone helped a lot but did not take away all the pain. 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 Does not have an exercise routine. Pain is located along the medial side of the knee- radiates to the calf and into the thigh. Describes the pain as dull and achy- constant pain in the butt. Worst: 24 hours 01/28 4th: 05/30. Agg: being up on them, stand for long periods of time (15 minutes) Has had 2 discectomy- so she does not stand very long. Eases: sit down, put her feet up, heat, cold. Best: 0/10. Sleep: disturbed- side sleeper- pillow between the knees. Does have mild N/T in the left due to disectomy but not constant. Does not have an apt to Dr. Xiao- follow up as needed. PMHx/Meds: see list scanned into chart. - Objective Posture: FH, RS- can correct with verbal cueing but does not maintain without upright back. Gait: slightly antalgic- decreased heel strike and slow dank bilaterally. Stairs: asc/desc 8 recip with 2 HR- ascend uses UE A for propulsion and Desc is mildly uncontrolled. Reports doing them one at a time at home due to steeper stairs. SLS: Right: 8 seconds, Left: 5 seconds. Sit to investigator internal revenue 30 seconds:11 no UE A. HR/TR: able with UE A on wall- reports pulling sensation. Palpation: tender along medial joint line bilaterally. Sensation: WNL to gross touch bilaterally. ROM: 0-125 degrees bilaterally. Strength: Ankle: 5/5, Knee: 4+/5, Hip: 4/5 Core: fair. Flex: Gastroc: moderate, Hamstring: mild - Goals Goal 1:: Patient will be I with HEP and progression Goal Time Frame: 4-6 Weeks Goal 2:: Patient will ambulate >300 feet with a normalized gait pattern Goal Time Frame: 4-6 Weeks Goal 3:: Patient will perform 14 sit to stands with no UE A in 30 seconds to be in age range norms. Goal Time Frame: 4-6 Weeks Goal 4:: Patient will asc/desc 8 stairs recip with 1 HR and good control - Rehabilitation Potential Physical Therapy Diagnosis: Patient presents with hypomobility-she has decreased strength and muscular endurance leading to abnormal gait and increased pain with ADL's. Rehabilitation Potential: Good - Anticipated Interventions Patient/Client Instruction: Educate patient on: Benefits of Fitness Program Therapeutic Exercise to Include: Strength training, Endurance training, Balance training, Body mechanics, Postural training, Flexibilty training, Dynamic Lumbar Stabilization, Scapular Strength/Stabilization For the Purpose of:: To improve muscle performance and motor function, To improve performance and independence with ADL's TENS: Yes Cryotherapy (ice pack, ice massage): Yes Thermo therapy (hot pack): Yes Ultrasound (thermal/non thermal): Yes For the Purpose of:: To decrease pain Thank you for the opportunity to evaluate your patient. For Medicare and Medicare HMO plans, please review the plan of care and approve it. It will need to be FAXED BACK to us at [phone] for Medicare purposes. For Medicare only, by signing this I certify the plan of care. Please let me know if there are questions or concerns regarding this plan of care. Physician Signature: Date:
--- NOTE | 2019-06-29 08:35 | HP.PTDCSUM_ITS ---
HP - PT D/C Summary It has been my pleasure to treat NEISHA MCNEAL under orders from Xavi Xiao MD, for the diagnosis of Bilateral Knee OA for a total of 9 visit(s). Discharge Date: Please see the following information for a summary of their discharge status. - Subjective Subjective: Patient reports that her knees are not to bad. The clams really bother her hips and make it hard to walk. Was given a home exercise program by Deng. Can do shoes better and feels more stable. Worst in the last 48 hours: 2/10. Best: 0/10. She is where she expects to be in this stage of the game. Saw Dr. Xiao who told her you cant stop the progression but be as functional as can be. Stationary exercise bike and exercises at home. - Pain B knee pain Pain Intensity (Out of 10): 2 - Overall Improvement % Improvement: 100 - Objective Objective/Function: Posture: FH, RS- can correct with verbal cueing but does not maintain without upright back of chair. Gait: no deviation noted Stairs: asc/desc 8 recip with single rail. SLS: Right: 15 seconds, Left: 10 seconds. Sit to modeling and simulation analyst 30 seconds:13 no UE A (Normal age range is 14). HR/TR: able with UE A on wall Palpation: not tender to touch Sensation: WNL to gross touch bilaterally. ROM: 0-125 degrees bilaterally. Strength: Ankle: 5/5, Knee: 5/5, Hip: 4+/5 Core: fair. Flex: Gastroc: mild, Hamstring: mild - Goals Goal 1:: Patient will be I with HEP and progression Goal Progress: Goal Met Goal 2:: Patient will ambulate >300 feet with a normalized gait pattern Goal Progress: Goal Met Goal 3:: Patient will perform 14 sit to stands with no UE A in 30 seconds to be in age range norms. Goal Progress: Progressing Goal 4:: Patient will asc/desc 8 stairs recip with 1 HR and good control Goal Progress: Goal Met - Plan Plan: Discharge to I HEP. - D/C Information If there are questions or concerns regarding this patient's physical therapy, please feel free to call me at [phone]. Thank you for the referral of this patient. Sincerely, Charlette Dallas DPT
== END 2019-06-29 19:00 | disposition home or self-care (01) ==
LOC: PT 07:00
PROVIDERS: Family Provider Internal Medicine; PCP Internal Medicine; Referring Provider Specialist; Visit Provider Specialist
DX: M17.0 Bilateral primary osteoarthritis of knee (principal)
CPT/HCPCS: 97110; 97161; 97164

== ENCOUNTER → 2019-09-12 07:36 | Outpatient (CLI) | payer MEDICARE, OTHER, SELFPAY ==
[2019-08-22 14:01] VITALS: BMI 34.0
--- NOTE | 2019-09-12 07:38 | ECHOD_ITS ---
Reason For Study: HTN Procedure This was a 2D Doppler, Color Flow transthoracic echocardiogram. Exam performed in department. Left Ventricle Normal LV size. Left ventricular systolic function is normal. The estimated ejection fraction is 60 %. Stage 1 diastolic dysfunction. No regional wall motion abnormalities noted. Right Ventricle Normal RV size. Normal systolic function. Atria Normal left atrium. Normal right atrium. Mitral Valve Normal mitral valve. Mild (1+) eccentric mitral valve insufficiency. Tricuspid Valve Normal tricuspid valve. Mild (1+) tricuspid valve insufficiency. Pulmonary artery systolic pressure is 38 mmHg. Aortic Valve Trisinus/trileaflet aortic valve. Mild (1+) eccentric aortic valve insufficiency. Pulmonic Valve Normal pulmonic valve. Great Vessels Normal aortic root. The pulmonary artery is normal size. Normal inferior vena cava. Pericardium/Pleural No pericardial effusion. MMode/2D Measurements & Calculations LVIDd: 5.3 cm IVSd: 1.5 cm Ao root diam: 2.9 cm LVIDs: 3.2 cm LVPWd: 1.2 cm RVDd: 2.6 cm FS: 39.0 % LAV(MOD-bp): 66.3 ml EDV(MOD-sp4): 126.6 ml SV(MOD-sp4): 61.0 ml LAV(MOD-bp) Indexed: 34.1 ml/m2 ESV(MOD-sp4): 65.7 ml LAV(MOD-sp2): 70.9 ml EF(MOD-sp4): 48.1 % LAV(MOD-sp4): 59.7 ml LA dimension(2D): 4.2 cm LA A4 area: 20.2 cm2 RA A4 area: 15.4 cm2 Time Measurements MV dec time: 0.15 sec Doppler Measurements & Calculations MV E max navarro: 77.4 cm/sec Lat Peak E' Navarro: 5.9 cm/sec Med Peak E' Navarro: 5.5 cm/sec MV A max navarro: 89.8 cm/sec E/E' lat: 13.0 E/E' med: 14.1 MV E/A: 0.86 Ao V2 max: 192.1 cm/sec AI max navarro: 476.9 cm/sec LV V1 max: 98.5 cm/sec Ao max P.8 mmHg AI max P.1 mmHg LV V1 max P.9 mmHg Ao V2 mean: 133.2 cm/sec AI dec slope: 249.8 cm/sec2 LV V1 mean P.9 mmHg Ao mean P.8 mmHg AI P1/2t: 559.1 msec LV V1 mean: 65.6 cm/sec Ao V2 VTI: 46.4 cm LV V1 VTI: 23.9 cm PA V2 max: 82.2 cm/sec TR max navarro: 294.8 cm/sec TR max P.8 mmHg Interpretation Summary Normal LV size. Left ventricular systolic function is normal. The estimated ejection fraction is 60 %. Stage 1 diastolic dysfunction. Mild (1+) eccentric aortic valve insufficiency. Mild (1+) tricuspid valve insufficiency. Ordering Physician: Baron Gonzalez Referring Physician: Jessica Corona Performed By: Bertha Gurrola, GIN, RVT
== END ==
PROVIDERS: Family Provider Internal Medicine; PCP Internal Medicine; Referring Provider Internal Medicine Cardiovascular Disease; Visit Provider Internal Medicine Cardiovascular Disease
DX: I10 Essential (primary) hypertension (principal); R94.31 Abnormal electrocardiogram [ECG] [EKG]
CPT/HCPCS: 93306

== ENCOUNTER → 2019-10-23 09:53 | Outpatient (CLI) | payer MEDICARE, OTHER, SELFPAY ==
[2019-10-02 10:15] VITALS: BMI 34.0
== END ==
PROVIDERS: Family Provider Internal Medicine; PCP Internal Medicine; Referring Provider Internal Medicine Cardiovascular Disease; Visit Provider Internal Medicine Cardiovascular Disease
DX: I10 Essential (primary) hypertension (principal); E78.5 Hyperlipidemia, unspecified

== ENCOUNTER → 2020-04-28 12:52 | Outpatient (CLI) | payer MEDICARE, OTHER, SELFPAY ==
[2019-10-02 10:15] VITALS: BMI 34.0
[2020-04-22 14:15] VITALS: BMI 34.3
--- NOTE | 2020-04-28 13:01 | CT_ITS ---
STUDY: CT RIGHT LOWER EXTREMITY REASON FOR EXAM: Osteoarthritis, surgical planning. TECHNIQUE: Transaxial CT imaging of the lower extremity was performed. Coronal and sagittal images were reformatted of the knee and hip. Individualized dose optimization techniques were used for this CT. COMPARISON: Radiographs 02/02/2019. FINDINGS: Knee: There is joint space narrowing of the of the medial knee compartment (sagittal reconstruction 39) and a small subchondral cyst in the anterior aspect of the tibial plateau (coronal reconstruction 21). Normal lateral femoral condyle and lateral tibial plateau. There is preservation of the articular joint space of the lateral knee compartment. There are small marginal osteophytes and mild joint space narrowing of the patellofemoral articulation (sagittal reconstruction 33) Normal proximal tibiofibular articulation. There is no joint effusion. The quadriceps tendon is grossly normal. The patellar tendon is grossly normal. Normal Hoffa''s fat pad. There is a small soft tissue calcification anterior to the patella (axial image 505). Hip: There are small marginal osteophytes with joint space narrowing of the right hip and a small subchondral cyst of the lateral acetabulum (coronal reconstruction 68). There is a bone island in the right femoral head (coronal reconstruction 68). 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 Right hip arthrosis. Electronically Signed: Milton Sarabia MD at 14:05 EDT Tel , Service support ,
[2020-04-28 15:12] LABS: Absolute Neutrophil Count 4.9 X10^3/uL (2.0-7.7); Basophil# 0.04 X10^3/uL; Basophil% 0.6 % (0-1); Eosinophil# 0.33 X10^3/uL; Eosinophils% 4.6 % (0-5); Hematocrit 42.9 % (37-47); Hemoglobin 13.5 g/dL (12.0-15.0); Lymphocyte % 18.2 % (19-41); Mean Corp Hgb Conc 31.5 g/dL (32-36); Mean Corpuscular Hgb 31.1 pg (27.0-32.0); Mean Corpuscular Volume 98.8 fL (81-99); Mean Platelet Vol. 9.7 fl (6.2-12.0); Monocyte# 0.52 X10^3/uL; Monocyte% 7.3 % (0-10); NRBC Flagged by Analyzer 0 % (0-5); Neutrophil # 4.93 X10^3/uL (2.7-7.7); Neutrophil % 68.9 % (47-70); Platelet Count 267 K/mm3 (150-450); RBC Distribution Width CV 12.9 % (11.6-14.6); RBC Distribution Width SD 46.7 fl (35.1-43.9); Red Blood Count 4.34 M/mm3 (4.2-5.4); White Blood Count 7.2 K/mm3 (4.4-11.0)
[2020-04-28 15:32] LABS: Anion Gap 6 (5-15); BUN 17 mg/dL (7-18); BUN/Creat Ratio 26.5 RATIO (10-20); Calcium,Total 9.1 mg/dL (8.5-10.1); Chloride 107 mmol/L (98-107); Creatinine, Serum 0.64 mg/dL (0.55-1.02); EST Glomerular Filtration Rate 97 mL/min (>60); Est Glom Filt Rate - Afr Amer 117 mL/min (>60); Glucose 99 mg/dL (74-106); Potassium 3.3 mmol/L (3.5-5.1); Sodium Level 139 mmol/L (136-145)
== END ==
PROVIDERS: PCP Internal Medicine; Referring Provider Specialist; Visit Provider Specialist
DX: Z01.810 Encounter for preprocedural cardiovascular examination (principal); Z01.818 Encounter for other preprocedural examination; M16.11 Unilateral primary osteoarthritis, right hip
CPT/HCPCS: 36415; 73700; 80048; 84443; 85025; 87081

== ENCOUNTER 2020-05-21 16:36 | Observation (INO) | payer MEDICARE, OTHER, SELFPAY ==
[2019-10-02 10:15] VITALS: BMI 34.0
[2020-04-22 14:15] VITALS: BMI 34.3
--- NOTE | 2020-04-28 12:38 | PCM.HP.BLA ---
History and Physical History and Physical [facility] Patient Name: Shannon Tobar : 1950 From: JULIO C GONZALEZ PA-C DATE OF SURGERY: 05/21/2020 SCHEDULED PROCEDURE: Right Total Hip Arthroplasty HISTORY OF PRESENT ILLNESS: Preoperative history and physical exam was performed on April 28, 2020. This is a 70-year-old female who is been having ongoing pain in the right hip for over one year. Her pain can reach his high as a 7/10 with activities. Her pain has been intermittent. She does feel her range of motion has decreased redness has limited her ability with activities of daily living. She does get pain at nighttime. She has increased pain with walking. She has difficulty with activities of daily living including bathing/showering, getting dressed, housework, shopping. Patient feels unsafe going up and down stairs. She has tried rest, heat, elevation with minimal relief. She has been through physical therapy and home exercises. Patient has tried [id number] medications including Tylenol and Aleve with minimal relief. Patient denies previous surgery on the right hip. Patient's pain is located in the groin. She denies any chest pain, shortness of breath, fevers chills, or recent infections. We are obtaining surgical clearance from the primary care physician Dr. Corona. After failing conservative measures and discussing treatment options with Dr. Xavi Xiao, the patient does wish to proceed with a right total hip arthroplasty. REVIEW OF SYSTEMS: ROS: Const: Denies anorexia, anxiety, change in appetite, fever and weight change,hard of hearing, and vision problems. CV: Reports irregular heartbeat, but denies chest pain, heart murmur and peripheral vascular disease. Resp: Denies asthma, cough, pneumonia, sleep apnea, shortness of breath, tuberculosis and wheezing. GI: Denies constipation, diarrhea, heartburn, nausea, bloody stools and vomiting, and difficulty swallowing. : Denies incontinence. Musculo: Denies leg swelling, trouble walking and weakness and limp. Skin: Reports tattoo, but denies Raynaud's and history of shingles. Neuro: Denies ambulatory dysfunction, dizziness, numbness/tingling and tremor. Psych: Denies anxiety, depression, insomnia, mental illness and stress. Edmund/Lymph: Denies anemia, bleeding/bruising tendency and past transfusion. Allergy/Immuno: Reports hay fever and sinusitis. Reviewed, no changes. PAST MEDICAL HISTORY: Advance Care Plan: No Advance Directives Effective Date: 05/17/2019 PMH: Medical Problems: High Blood Pressure, Thyroid Disease Accidents: Fracture - (2010) LT ARM FX Surgical Hx: Discectomy - (2004) JUN & AUG - JWG Gallbladder - (1991) ORIF LT Humerus - (12/16/2010) [email or web address] 4 PINS, 3 SCREWS AND METAL PLATE Hysterectomy Anesthesia Complications: None Assistive Devices: Glasses Reviewed and updated. SOCIAL HISTORY: SH: Marital: .Occupation: Retired.Work Status: Retired.Hand Dominance: Right-handed. Personal Habits: Cigarette Use: Never.Smokeless Tobacco: Never Used Smokeless Tobacco.E-Cigarette Use: Never used.Alcohol: Occasionally.Drug Use: Denies Use.Enjoy Exercising: Exercises 1-3 X/Week. Reviewed, no changes. VITALS: Ht: 64 Wt: 204lb 6oz Wt k.704 BMI: 35.1 BP: 178/88 Pulse: 56 Resp: 16 T: 97.2 T: 36.2C ALLERGIES: Morphine - N&V Dilaudid - N&V Vicodin - N&V Percocet - N&V Ultram - N&V Narcotics Levaquin MEDICATIONS: Tramadol HCL 50 mg 1-2 by mouth every 6 hours as needed pain, Meloxicam 7.5 mg 1 by mouth twice a day, Promethazine HCL 12.5 mg 1-2 tablets by mouth every 6 hours, Tylenol 325 mg prn, Levothyroxine Sodium 50 mcg 1 by mouth every day, Prilosec 40 mg 1 tab by mouth daily, Hydrochlorothiazide 25 mg 1 by mouth every day, Atenolol 100 mg PRE-OP EXAM: General appearance:NORMAL Other: Eyes: Conjunctivae and lids: NORMAL Pupils: ERR Ears, Nose, Mouth, and Throat: NORMAL Other: Inspection of lips, teeth and gums: NORMAL Other: Neck: Examination of neck: no masses noted. Respiratory: Assessment of respiratory effort: NORMAL Other: Auscultation of lungs: clear to auscultation no wheezes, rhonchi or rales. Cardiovascular: Auscultation of heart: regular rate and rhythm, no murmurs, gallops or rubs. Exam of carotid arteries: NORMAL Other: Gastrointestinal: Exam of abdomen: soft, nontender, nondistended bowel sounds present. PHYSICAL EXAMINATION: Patient walks with an antalgic gait. She has tenderness to palpation over the lateral right hip. Patient has obligatory external rotation with flexion of the right hip. Flexion 60, internal rotation neutral, external rotation 20 with increased pain on range of motion. Patient also has obligatory external rotation with flexion of the left hip. Left hip 90 flexion, internal rotation neutral, external rotation 20. IMAGING STUDIES: X-rays were obtained at [facility] on April 28, 2020 including 3 views AP pelvis, AP right hip, crossfire lateral right hip reveals no acute finding for fracture or dislocation. Patient has joint space narrowing, subchondral sclerosis, and osteophyte formation consistent with severe stage IV osteoarthritis. There is also joint space narrowing, subchondral sclerosis, osteophyte formation with severe osteoarthritis with regards to left hip as well. No lytic or blastic lesions appreciated. IMPRESSION: 1. Severe right hip osteoarthritis 2. Hypertension 3. Thyroid disease PLAN: Dr. Xavi Xiao did discuss and review with the patient all treatment options including surgical versus nonsurgical options. Patient does wish to proceed with the above-stated procedure. Potential risks, benefits, and complications of the procedure were discussed in detail including but not limited to , infection, nerve and blood vessel damage, persistent pain, numbness, tingling, paresthesias, blood clot, pulmonary embolism, and requirement for possible further surgery. The patient expressed full understanding and has no further questions for the doctor. Patient does agree to proceed with the above-stated procedure and has signed the surgery consent form. We discussed the current risks associated with COVID 19. This does include the risk of exposure while in the hospital. Patient was reassured local hospitals have low infection rates and are taking all necessary precautions to avoid exposure to patients. In addition, we discussed strategies that can be used to help limit exposure including those that limit the patient's time in the hospital. Also using strategies to limit the patient's need for continued inpatient services after being discharged from the hospital. Patient was notified that we will need to comply with any screening or testing the hospital wishes to perform or that surgery may be delayed for any positive results. This dictation was created using voice recognition software. Phonetic and/or grammatical errors may exist. ___ I have re-examined the patient. There are no clinical changes since date of exam. ___ See progress notes for changes. ___ Dictated on admission Date: Time: Signature:
--- NOTE | 2020-04-28 14:19 | EKG12_ITS ---
Test Reason : PRE-OP Blood Pressure : / mmHG Vent. Rate : 059 BPM Atrial Rate : 059 BPM P-R Int : 180 ms QRS Dur : 090 ms QT Int : 438 ms P-R-T Axes : 029 -14 019 degrees QTc Int : 433 ms Sinus bradycardia Otherwise normal ECG Confirmed by ANTHONY MCKAY, KAI ([id number]), web editor TERRA PIZARRO ([id number]) on 04/29/2020 10:07:32 AM Referred By: Xavi Xiao Confirmed By:KAI CRUZ MD
[2020-04-30 11:07] LABS: Thyroid Stim Hormone (TSH) 1.71 uIU/mL (0.358-3.74)
[2020-05-13 11:27] LABS: Albumin, Serum 3.7 g/dL (3.2-5.0)
[2020-05-21] VITALS (23 sets, daily range): BP systolic 129–174; BP diastolic 51–79; PULSE 61–74; RESP 16–18; TEMP 36.1–36.7; O2SAT 90–99; BMI 34.9; BMI 34.7
[2020-05-21] MEDS: Lactated Ringers 1,000 ML 999 ML IV ×3 (05:30→10:54)
[2020-05-21] MEDS: Lactated Ringers 1,000 ML 75 ML IV ×2 (05:56→08:00)
[2020-05-21] MEDS: Acetaminophen 500 MG Tablet 1000 MG PO ×3 (05:58→21:25)
[2020-05-21] MEDS: Gabapentin 600 MG Tablet PO (05:59)
[2020-05-21 06:40] LABS: Bedside Glucose 117 mg/dL (70-110)
[2020-05-21] MEDS: Scopolamine 1mg/72hr Patch 1 PATCH TD (07:15)
[2020-05-21] MEDS: Cefazolin 2 GM in 0.9% Normal Saline 100 ML IV (07:22)
--- NOTE | 2020-05-21 07:30 | RAD_ITS ---
STUDY: X-RAY - PELVIS AND RIGHT HIP REASON FOR EXAM: Female, 70 years old. TOTAL ANTERIOR HIP. 4.2 SEC. FL TECHNIQUE: 1 views of the pelvis and hip. COMPARISON: None. FINDINGS: Intraoperative imaging provided for right total hip replacement. RAD/Hip 1 view with Pelvis IMPRESSION: Intraoperative imaging provided for right total hip replacement. Electronically Signed: Kvng Michael, at 15:30 EDT , Service support ,
[2020-05-21] MEDS: Lidocaine/D5W 2,000 MG/250 ML IV.SOLN 1 MG IV (07:35)
--- NOTE | 2020-05-21 08:52 | OP_ITS ---
Report of Operation Date of Procedure: 05/21/20 Pre-Operative Diagnosis: Right hip primary osteoarthritis Post-Operative Diagnosis: Right hip primary osteoarthritis Surgery/Procedure Performed:: Right hip direct anterior minimally invasive robotic assisted total hip replacement Description of Surgical Findings:: Stable hip with equal leg lengths cake puncher: Ruma Ruffin Type of Anesthesia:: General Anesthesiologist: Deonte Coughlin Special Medications: 2 g Ancef, 1 g TXA at incision, 1 g TXA closure, 10 mg Decadron, joint cocktail (5 mg Duramorph, 30 mL of 0.5% Ropivicaine, 1000 units of epinephrine, 30 mg of Toradol) Specimen's removed: Bony cuts Estimated Blood Loss (mL): 150 Fluids Replaced: 1500 mL crystalloid Description of Procedure: Components used: 1. Accolade 2 [place] femoral stem size 4 127? 2. [place] trident 2 acetabular shell size 50 mm 3. Patrick X3 polyethylene D 4. Patrick Biolox delta 36mm, -5mm femoral head Brief history operative indications: 69 yo f who failed conservative measures for their hip osteoarthritis. X-rays were consistent with osteoarthritis including joint space narrowing, osteophyte formation and subchondral cysts. Total hip replacement was discussed with the patient with risks and benefits including but not limited to blood loss, DVTs, PEs, neurovascular damage, dislocation, general risks of anesthesia including loss of life. Patient demonstrated an understanding medical clearance is obtained the patient was consented for surgery. Procedure: On the date of procedure the patient's R hip was marked in the preoperative area. Patient was then taken back to the operating room where anesthesia assumed control of the C-spine and airway and administered anesthetic. Patient was transferred to the operating table and placed in the supine position. The hips were placed at the break of the bed and a sacral bump was placed. The R lower extremity was then prepped out in a sterile fashion using chlorhexidine while the surgeon scrubbed. The PA was vital in the positioning of the patient. Upon reentering the room the R lower extremity was draped in the standard orthopedic fashion and the incision was marked. A timeout was called and everyone agreed upon the side, the site, the procedure be performed, antibody given, and patient's identity. At this time incision was made through skin, subcutaneous tissue, and fat down to fascia. The fascia was then incised and the TFL was retracted laterally. A retractor was placed on the lateral border of the femoral neck. Attention was directed to the inferior portion of the approach and all crossing vessels were identified and appropriately coagulated. A retractor was then placed on the medial portion of the femoral neck. The anterior capsule was then cleared of all soft tissue and then H shaped capsulotomy was made. The retractors were then placed inside the capsule. The femoral neck was identified and the femoral checkpoints were registered a cleanup cut was then made. At this time a power corkscrew was used to remove the femoral head. Attention was then turned toward the acetabulum where the soft tissues were appropriately retracted and the acetabulum was registered with the Gigalo robotic system. Then the acetabulum was reamed to 50 mm. A 50 mm cup was then selected and impacted into place. Acetabular liner was impacted into place and locking mechanism was verified. The position of the acetabular cup was then verified under live fluoroscopy. Attention was then turned to the femur. Soft tissue releases on the medial and lateral femoral neck were appropriately done, the leg was externally rotated and lateralized. A Rosario retractor was placed medially and proximally to the greater trochanter this allowed appropriate visualization and exposure of the femoral canal. Rongeour was then used to remove excess lateral bone. A canal finder and entry broach were used to open the proximal canal. Once we verified we were down the femoral canal we subsequently broached up to a size 4 femur. The appropriate neck was placed in the previously selected head was trialed with a -5 mm neck. Traction was pulled and the hip was reduced with internal rotation. Once it was appropriately reduced and stability was checked. There was minimal shuck, equal leg lengths and appropriate stability with hyperextension and external rotation as well as with 90? flexion and internal rotation. Fluoroscopy was then also used to verify the position of the components and leg lengths using the Gigalo system. Based on the patient's preoperative leg length discrepancies with the operative leg being longer we used stability as well as the contralateral hip to obtain appropriate hip mechanics in length. The trial components were then dislocated the proximal femur was again exposed and the components were removed from the wound. The final components were verified and opened. The wound was copiously irrigated out with normal saline. The acetabulum was checked for any residual debris. The final components were placed and impacted. Traction and internal rotation were again used to reduce the hip. After adequate reduction the hip remained stable with appropriate leg lengths. The final components were once again checked with live fluoroscopy and were found to be satisfactory. The wound was then copiously irrigated with normal saline once more, and hemostasis was obtained. Closure was then done using #1 Vicryl runner to close the fascia. A 2-0 vicryl interuppted sutures were used to close the subcutaneous skin. A 3-0 Monocryl and Steri-Strips were used for final skin closure. A Silverlon dressing was placed. Patient was awakened by anesthesia and [facility] Patient was then transferred to the PACU for recovery. Postoperative plan: Patient will get 24 hours postop antibiotics. Patient will get in-house physical therapy and will be weight-bear as tolerated. Patient will follow up in office in 2 weeks for a wound check and x-rays. - Complications No intraoperative complications - Admit VTE Documentation VTE Present on Admission: No VTE Mechan Device Prophylaxis: SCD's, Thigh High FITO Hose VTE Pharm Prophylaxis ordered?: Yes
--- NOTE | 2020-05-21 10:15 | RAD_ITS ---
STUDY: X-RAY - PELVIS AND RIGHT HIP REASON FOR EXAM: Female, 70 years old. POST OP HIP REPLACEMENT TECHNIQUE: 2 views of the pelvis and hip. COMPARISON: Previous intraoperative study earlier this date FINDINGS: Status post total right hip replacement changes are noted with implants appearing in good position. There is no evidence of implant loosening or associated fracture or dislocation. There are moderately severe degenerative changes of the left hip.. RAD/Hip Min 2 Views (Portable) IMPRESSION: Status post total right hip replacement changes noted with implants appearing in good position. Moderately severe degenerative changes of the left hip. Electronically Signed: Tapan Gore MD at 17:03 EDT , Service support ,
[2020-05-21] MEDS: Lactated Ringers 1,000 ML 125 ML IV ×2 (10:21→18:07)
[2020-05-21] MEDS: Ondansetron 4 MG/2 ML Vial IV (14:54)
[2020-05-21] MEDS: Ketorolac 30 MG/ML Syringe IV (15:17)
[2020-05-21] MEDS: proMETHazine 25 MG/ML Syringe 12.5 MG IV (18:07)
[2020-05-21] MEDS: Ketorolac 15 MG/ML Vial IV (21:25)
[2020-05-22] MEDS: Lactated Ringers 1,000 ML 125 ML IV (01:04)
[2020-05-22] MEDS: Acetaminophen 500 MG Tablet 1000 MG PO (05:19)
[2020-05-22] MEDS: Ketorolac 15 MG/ML Vial IV (05:20)
[2020-05-22 05:33] VITALS: BP 152/50; PULSE 62; RESP 18; TEMP 36.8; O2SAT 96
[2020-05-22 08:54] LABS: Absolute Lymphocyte Count 1.58 X10^3/uL (0.83-4.51); Absolute Neutrophil Count 8.6 X10^3/uL (2.0-7.7); Basophil# 0.02 X10^3/uL; Basophil% 0.2 % (0-1); Eosinophil# 0.09 X10^3/uL; Eosinophils% 0.8 % (0-5); Hematocrit 37.1 % (37-47); Hemoglobin 11.6 g/dL (12.0-15.0); Lymphocyte # 1.58 X10^3/ul (4.0); Lymphocyte % 14.1 % (19-41); Mean Corp Hgb Conc 31.3 g/dL (32-36); Mean Corpuscular Hgb 30.9 pg (27.0-32.0); Mean Corpuscular Volume 98.9 fL (81-99); Mean Platelet Vol. 9.8 fl (6.2-12.0); Monocyte# 0.83 X10^3/uL; Monocyte% 7.4 % (0-10); NRBC Flagged by Analyzer 0 % (0-5); Neutrophil # 8.62 X10^3/uL (2.7-7.7); Neutrophil % 76.7 % (47-70); Platelet Count 243 K/mm3 (150-450); RBC Distribution Width CV 12.9 % (11.6-14.6); RBC Distribution Width SD 45.9 fl (35.1-43.9); Red Blood Count 3.75 M/mm3 (4.2-5.4); White Blood Count 11.2 K/mm3 (4.4-11.0)
[2020-05-22] MEDS: Meloxicam 7.5 MG Tablet PO (08:59)
[2020-05-22] MEDS: Aspirin 81 MG TAB.CHEW PO (08:59)
[2020-05-22 09:06] VITALS: BP 150/57; PULSE 65; RESP 18; TEMP 36.9; O2SAT 96
[2020-05-22 09:07] LABS: Anion Gap 7 (5-15); BUN 9 mg/dL (7-18); BUN/Creat Ratio 12.2 RATIO (10-20); Calcium,Total 8.1 mg/dL (8.5-10.1); Chloride 103 mmol/L (98-107); Creatinine, Serum 0.74 mg/dL (0.55-1.02); EST Glomerular Filtration Rate 82 mL/min (>60); Est Glom Filt Rate - Afr Amer 100 mL/min (>60); Estimated Creatinine Clearance 43.91 ml/min; Glucose 123 mg/dL (74-106); Potassium 3.4 mmol/L (3.5-5.1); Sodium Level 138 mmol/L (136-145)
--- NOTE | 2020-05-22 09:10 | CASEMGMT ---
MATTHEW LAWS Face to Face with patient for initial transition planning/care coordination assessment. RN VETO introduced self and role at [facility]. Patient sitting in chair, alert and oriented. Patient willing to participate in assessment and is able to answer all questions appropriately. Care providers, pharmacy, and demographics verified. Patient wishes to discharge home and is setup with [facility] for outpatient therapy. Patient states she has no further needs or concerns at this time. CM to follow for discharge planning needs that may arise. PCP: Chloe Specialists: Thai Xiao; Carlos, filter tank tender helper Preferred Pharmacy: [facility] Insurance: [employer], [facility] Prescription Benefit: yes Living Will/HPOA: yes, Travis Tobar LNOK: , daughter Living Arrangements: Patient lives with in 2 story home with bed and bath on main level of home. 2 steps to enter the home. Patient states she was independent prior to surgery Transportation: DME/HHC: Patient states she has walker, raised toilet seat, virtual assistant for advertisers at home. Patient states she is setup with [facility] for outpatient therapy starting Tuesday. Disposition Plan: Patient to discharge home with outpatient therapy, family support, and follow-up plans in place. Grace PLAZA, RN, CM
--- NOTE | 2020-05-22 09:43 | PCM.PN.ORT ---
Subjective: The patient was sitting in bedside chair upon examination. Patient denies any chest pain, shortness of breath, dizziness, lightheadedness, nausea or vomiting, or calf pain. Pain is controlled on medications. No adverse overnight events. Overall patient is doing very well. Patient was scheduled as an outpatient surgery however she needed to stay overnight due to nausea and dizziness. Patient states she is doing significantly better today and does not complain of any nausea or dizziness. Patient has been given all medications at her preoperative visit as she was scheduled to be an outpatient total joint replacement. Objective: Vital signs stable and afebrile. Patient is able to plantarflex and dorsiflex actively. Sensation is intact to light touch to saphenous, sural, superficial and deep peroneal, and tibial distribution. Dressing is clean dry and intact. Negative Homans bilaterally, negative signs and symptoms of DVT. - Physical Exam Vitals/I&O's: Vital Signs Temp Pulse Resp BP Pulse Ox 98.4 F 65 18 150/57 H 96 05/22/20 09:06 05/22/20 09:06 05/22/20 09:06 05/22/20 09:06 05/22/20 09:06 Oxygen Flow Rate (L/min) 2 Oxygen Delivery Method Room Air Weight: 92.4 kg Body Mass Index (BMI) 34.7 Intake and Output for Last 24 Hours 05/20/20 05/21/20 05/22/20 23:59 23:59 23:59 Intake Total 6546.95 / 6546.95 864.58 / 864.58 Output Total 500 / 500 300 / 300 Balance 6046.95 / 6046.95 564.58 / 564.58 General: Alert, Oriented x3, Cooperative, No apparent distress Laboratory Results 05/22/20 08:22: WBC 11.2 H, RBC 3.75 L, Hgb 11.6 L, Hct 37.1, MCV 98.9, MCH 30.9, MCHC 31.3 L, RDW Std Deviation 45.9 H, RDW Coeff of Selena 12.9, Plt Count 243, MPV 9.8, Immature Gran % (Auto) 0.800, Neut % (Auto) 76.7 H, Lymph % (Auto) 14.1 L, Evangeline % (Auto) 7.4, Eos % (Auto) 0.8, Baso % (Auto) 0.2, Absolute Neuts (auto) 8.6 H, Absolute Lymphs (auto) 1.58, Nucleated RBC % 0 05/22/20 08:22: Sodium 138, Potassium 3.4 L, Chloride 103, Carbon Dioxide 28.0, Anion Gap 7, BUN 9, Creatinine 0.74, Estim Creat Clear Calc 43.91, Est GFR (MDRD) Af Amer 100, Est GFR (MDRD) Non-Af 82, BUN/Creatinine Ratio 12.2, Glucose 123 H, Calcium 8.1 L Current Medications Acetaminophen (Tylenol) 1,000 mg PO Q8 [facility] Last Admin: 05/22/20 05:19 Dose: 1,000 mg Documented by: Aspirin (Aspirin, Baby) 81 mg PO BID [facility] Last Admin: 05/22/20 08:59 Dose: 81 mg Documented by: Lactated Ringer's () 1,000 mls @ 125 mls/hr IV .Q8H [facility] Last Admin: 05/22/20 01:04 Dose: 125 mls/hr Documented by: Insulin Human Lispro (Humalog Kwikpen (Bkc)) 1 - 6 unit SC Q4H PRN PRN; Protocol PRN Reason: BG>/= 180, SEE PROTOCOL Ketorolac Tromethamine (Toradol (Bkc)) 15 mg IV Q8 [facility] Stop: 05/22/20 22:00 Last Admin: 05/22/20 05:20 Dose: 15 mg Documented by: Meloxicam (Mobic) 7.5 mg PO 0800,1700 [facility] Last Admin: 05/22/20 08:59 Dose: 7.5 mg Documented by: Morphine Sulfate () 2 - 4 mg IV Q2H PRN PRN PRN Reason: Pain Score 6-10/10 Ondansetron HCl (Zofran) 4 mg IV Q8H PRN PRN PRN Reason: NAUSEA Last Admin: 05/21/20 14:54 Dose: 4 mg Documented by: Oxycodone HCl (Oxyir) 5 - 10 mg PO Q4H PRN PRN PRN Reason: Pain Score 4-10/10 Promethazine HCl (Phenergan) 12.5 mg IV Q6H PRN PRN PRN Reason: NAUSEA/VOMITING Last Admin: 05/21/20 18:07 Dose: 12.5 mg Documented by: Sodium Chloride () 10 - 40 ml IV UD PRN PRN Reason: SALINE FLUSH Medical Necessity - Tobacco Use Smoking Status: Never smoker Tobacco Use: Non-smoker Assessment/Plan 1. S/P right direct anterior total hip arthroplasty POD #1 2. Continue Pain Medications: Tylenol, tramadol, and meloxicam 3. DVT Prophylaxis: Take 81 mg aspirin twice daily for 4 weeks postoperatively for DVT prophylaxis 4. PT/OT: Weightbearing as tolerated 5. H & H: 11.6/37.1, asymptomatic. Secondary to acute blood loss from surgery 6. Reactive leukocytosis: Currently 11.2, afebrile. Patient did receive Decadron intraoperatively 7. Encouraged Incentive Spirometry 8. Disposition: Orthopedically stable, plan will be for discharge home today. Patient is tolerating physical therapy very well. Patient has all medications that have been prescribed and filled prior to the surgery as this was scheduled for an outpatient total joint replacement. She will follow-up per postop instructions. She has outpatient physical therapy established. I have reviewed the [place] Automated Rx Reporting System (OARRS) report for this patient for refill pattern and other prescriber involvement as part of the appropriate surveillance for the provision of acute and chronic controlled medications. The report was requested and reviewed on the date of this entry and was considered in the prescribing process.
--- NOTE | 2020-05-22 09:49 | DCINST_ITS ---
Discharge Diet: No Restrictions Discharge Activity: May Not Drive - while taking narcotic pain medications. May shower in (days): 1 - Dressing must be intact to skin. Turn dressing away from water Ice area for (Minutes): 20 - Every 1-2 hours while awake Weight Bearing Status: Weight bearing as tolerated Elevate: Operative Extremity Additional Activity Instructions:: Wear elastic stockings for 2 weeks. DO NOT use alcohol with narcotic pain medication. DO NOT make important decisions while taking narcotic medication. If you have problems with taking your medication (rash, itching, nausea, etc.) call the office at once. Call your doctor if your incision/area has: Increased Pain/ Swelling, Increased Redness, Foul Smelling Discharge Call your doctor if you observe: Fever of 101 or Higher Remove Dressing in (days):: 4 - Okay to remove on May 26, 2020 Additional Instructions: Follow orthopedic postop instructions Allergies/Adverse Reactions: Allergies valsartan Adverse Reaction (Severe, Verified 05/21/20 05:46) joint pain adhesive Adverse Reaction (Verified 05/21/20 05:46) BLISTERS candesartan Adverse Reaction (Verified 05/21/20 05:46) GI Upset doxazosin [From Cardura] Adverse Reaction (Verified 05/21/20 05:46) GI Upset levofloxacin [From Levaquin] Adverse Reaction (Verified 05/21/20 05:46) TENDONITIS lisinopril Adverse Reaction (Verified 05/21/20 05:46) hyperkalemia, felt terrible nifedipine [From Procardia] Adverse Reaction (Verified 05/21/20 05:46) joint pain NARCOTICS Adverse Reaction (Uncoded 05/21/20 05:46) Nausea/Vom/Diarrhea Medications to take at Discharge Promethazine HCl 25 mg PO PRN PRN 09/09/18 halobetasol propionate 0.05 % topical ointment 1 dose TOPICAL PRN PRN #15 g 08/20/19 hydrochlorothiazide 25 mg tablet 25 mg PO DAILY 08/20/19 levothyroxine 50 mcg tablet 50 mcg PO DAILY 08/20/19 omeprazole 40 mg capsule,delayed release 40 mg PO DAILY 08/22/19 Atenolol 100 mg PO BID 04/28/20 Amlodipine [Norvasc] 5 mg PO DAILY 05/21/20 Acetaminophen [Tylenol] 1,000 mg PO Q8 tab 05/22/20 Aspirin [Aspirin, Baby] 81 mg PO BID tab.chew 05/22/20 Meloxicam [Mobic] 7.5 mg PO 0800,1700 tab 05/22/20 Primary Care Physician: [facility] DO [Primary Care Provider] - Test Results: Test results from this visit will be discussed in further detail at your follow- up appointment, if applicable. Please Follow Up With: physical therapy @ [facility] When: 05/26/20 @ 9:00 am Please Follow Up With: Nain Robins PA-C When: 06/04/20 @ 8:30 am
--- NOTE | 2020-05-22 11:34 | PHA.DC.MR ---
Pharmacy Service has performed discharge medication reconciliation for this patient. The patient's discharge medication list was reviewed for discrepancies and discrepancies were resolved. Home Medications Promethazine HCl 25 mg PO PRN PRN 09/09/18 halobetasol propionate 0.05 % topical ointment 1 dose TOPICAL PRN PRN #15 g 08/20/19 hydrochlorothiazide 25 mg tablet 25 mg PO DAILY 08/20/19 levothyroxine 50 mcg tablet 50 mcg PO DAILY 08/20/19 omeprazole 40 mg capsule,delayed release 40 mg PO DAILY 08/22/19 Atenolol 100 mg PO BID 04/28/20 Amlodipine [Norvasc] 5 mg PO DAILY 05/21/20 Acetaminophen [Tylenol] 1,000 mg PO Q8 tab 05/22/20 Aspirin [Aspirin, Baby] 81 mg PO BID tab.chew 05/22/20 Meloxicam [Mobic] 7.5 mg PO 0800,1700 tab 05/22/20
== END 2020-05-22 10:25 | disposition home or self-care (01) ==
LOC: SDC 16:47 → MS3 16:47
PROVIDERS: Anesthesiology; Physician Assistant Surgical; Admitting Provider Specialist; PCP Internal Medicine; Referring Provider Specialist; Visit Provider Specialist
PROC: 8E0Y0CZ Robotic Assisted Procedure of Lower Extremity, Open Approach (ICD-10-PCS; CPT 27130; principal; 2020-05-21 07:00)
DX: M16.11 Unilateral primary osteoarthritis, right hip (principal); E07.9 Disorder of thyroid, unspecified; I10 Essential (primary) hypertension; Z79.899 Other long term (current) drug therapy; Z11.59 Encounter for screening for other viral diseases; E78.00 Pure hypercholesterolemia, unspecified; K21.9 Gastro-esophageal reflux disease without esophagitis; R00.1 Bradycardia, unspecified
CPT/HCPCS: 01214; 27130; S2900; 36415; 73501; 73502; 76000; 80048; 82040; 82962; 84443; 85025; 87635; 93005; 96361; 96374; 96375; 96376; 97110; 97116; 97162; 97166; 97530; 99218; 99251; C1776; G2023; J7050; J7120; G0378; G0379; G0463; J2405; U0003

== ENCOUNTER → 2020-08-20 | Outpatient (CLI) | payer MEDICARE, OTHER, SELFPAY ==
[2020-05-21 17:10] VITALS: BMI 34.7
--- NOTE | 2020-08-20 07:10 | BI_ITS ---
MAMMOGRAPHY - BILATERAL SCREENING REASON FOR EXAM: Female, 70 years old. Routine annual screening examination. PERTINENT HISTORY: Sisters with breast cancer. Aunt with breast cancer. TECHNIQUE: Digital bilateral breast rocky (3D mammographic acquisition) in the CC and MLO projections. 2-D mediolateral oblique (MLO) and craniocaudad (CC) views of both breasts were obtained. CAD: Full Field Digital Mammography with Computer Added Detection was performed. COMPARISON: Comparison is made with prior study dated 02/27/2019 and 02/01/2008. FINDINGS: Breast Composition: There are scattered areas of fibroglandular density. There are no dominant masses or suspicious calcifications. Stable benign-appearing 5.4 mm nodular density in the inferior lateral portion of the right breast suggestive of a small intramammary lymph node. No other significant abnormalities are identified. There has been no significant change since the prior study. BI/SCREEN MAMM (CAD) W/ROCKY BILAT IMPRESSION: Stable bilateral screening mammogram. Yearly follow-up mammogram recommended. (A) ASSESSMENT CATEGORY: BIRADS Category 2: Benign. A letter regarding these results will be sent to the patient by the facility within 30 days. Approximately 10% of breast cancers are not detected by mammography. A normal mammogram should not delay biopsy of a clinically suspicious abnormality. [id number] Electronically Signed: Kvng Michael, at 8:35 EDT , Service support ,
== END | disposition home or self-care (01) ==
LOC: OPBI 07:08
PROVIDERS: PCP Internal Medicine; Referring Provider Internal Medicine; Visit Provider Internal Medicine
DX: Z12.31 Encounter for screening mammogram for malignant neoplasm of breast (principal)
CPT/HCPCS: 77063; 77067

== ENCOUNTER → 2021-08-25 08:34 | Outpatient (CLI) | payer MEDICARE, OTHER, SELFPAY ==
[2020-05-21 17:10] VITALS: BMI 34.7
--- NOTE | 2021-08-25 08:38 | BI_ITS ---
MAMMOGRAPHY - BILATERAL SCREENING 3-D TOMOSYNTHESIS REASON FOR EXAM: Female, 71 years old. SCREENING PERTINENT HISTORY: No significant family history. TECHNIQUE: 2-D mammograms and 3-D Tomosynthesis of the breast (s) were performed. CAD was performed. COMPARISON: 08/20/2020 FINDINGS: The breast composition is composed of scattered fibroglandular density. Scattered benign calcifications are seen. No dense spiculated masses or suspicious microcalcifications are identified. No architectural distortion is identified. There is no skin thickening or retraction. There has been no significant change since the prior study. BI/SCRN MAMM (CAD)W/ROCKY BILAT IMPRESSION: No mammographic signs of malignancy. Routine yearly mammograms recommended. ASSESSMENT CATEGORY: BIRADS Category 1: Negative. A letter regarding these results will be sent to the patient by the facility within 30 days. FOLLOW UP RECOMMENDATION: Yearly follow up mammogram recommended. (A) Approximately 10% of breast cancers are not detected by mammography. A normal mammogram should not delay biopsy of a clinically suspicious abnormality. Electronically Signed: Celestine Rizzo MD at 8:25 EDT Tel , Service support ,
--- NOTE | 2021-08-25 09:06 | BD_ITS ---
STUDY: DUAL ENERGY X-RAY ABSORPTIOMETRY / DXA REASON FOR EXAM: Female, 71 years old. [id number]. Patient is postmenopausal. TECHNIQUE: Bone Mineral Density (BMD) measurements of lumbar spine and left hip were obtained. COMPARISON: Comparison is made with prior examination dated 05/09/2018. FINDINGS: Lumbar Spine (L1-L4): g/cm2 (1.266) / T-score (2.0) / Z-score (4.3) Findings are suggestive of normal bone density with a low fracture risk. Left Femur Total: g/cm2 (1.121) / T-score (1.5) / Z-score (3.2) Left Femoral Neck: g/cm2 (1.168) / T-score (2.9) / Z-score (4.9) The T-Scores on the most recent prior examination were: Lumbar Spine (L1-L4): There has been worsening of bone density since the previous examination. Left Femur Total: which represents a worsening of 5.6%. BD/Dexa Bone Density Study IMPRESSION: The patient is considered normal as outlined below according to World Kuldip Organization (WHO) criteria with a low fracture risk. There has been worsening of bone density since the previous examination. Reference Information: The T-score is the number of standard deviations above or below the standard which is normal for young adults at their peak bone mineral density. The World Health Organization (WHO) interprets the T-scores as follows: Above -1 Normal bone density Between -1 and -2.5 Osteopenia Equal to / or below -2.5 Osteoporosis As a practical clinical guideline, osteopenia may be graded as follows: Mild -1 through -1.5 Moderate -1.6 through -2.0 Severe -2.1 through -2.4 The Z-score is the number of standard deviations above or below age-matched controls. A Z-score of less than -1.5 would be considered abnormal. References: 1. NIH Osteoporosis and Related Bone Diseases www osteo.org 2. International Society for Clinical Densitometry www iscd.org 3. National Osteoporosis Foundation www nof.org Electronically Signed: Kvng Michael MD at 11:19 EDT , Service support ,
== END ==
PROVIDERS: PCP Internal Medicine; Referring Provider Internal Medicine; Visit Provider Internal Medicine
DX: Z12.31 Encounter for screening mammogram for malignant neoplasm of breast (principal); Z78.0 Asymptomatic menopausal state
CPT/HCPCS: 77063; 77067; 77080

== ENCOUNTER 2021-11-03 10:54 | Day surgery (SDC) | payer MEDICARE, OTHER, SELFPAY ==
[2021-11-03] VITALS (7 sets, daily range): BP systolic 99–184; BP diastolic 47–95; PULSE 57–65; RESP 14–16; TEMP 36.1–36.2; O2SAT 95–98; BMI 35.3
--- NOTE | 2021-11-03 | IMM_PTH ---
PATIENT: NEISHA MCNEAL LOC: EN U#:[id number] AGE/SX: 71/F ROOM: RE11/03/[address]: Dr. Chepe Hansen DO : 1950 BED: DIS: 11/03/2021 SPEC #: [id number] RECD: 11/04/21 08:47 STATUS: MAYNOR REQ #: [id number] JOSE: 11/03/21 00:[address]: Chepe Hansen DEPT: IMMUNOHISTOCHEMISTRY RECD BY: Cassy Martinez ENTERED: 11/04/21 08:52 SP TYPE: IMMUNO OTHR DR: Dr. [facility] DO Tissues: B - Stomach, NOS Procedures: H Pylori (initial) PHYSICIAN & INSTITUTION [place] [id number] SPECIMEN INFORMATION: Tissue Source: B ? Gastric antrum Clinical Info: Abdominal pain, diarrhea Specimen Number: [id number] CPT code: 32686 METHODOLOGY: Deparaffinized sections of prefer/formalin-fixed tissue or PAP/DQ stained slides are incubated with monoclonal/polyclonal antibodies/oligonucleotide probes. Localization is made via biotin free immunoperoxidase method. Appropriate controls are performed and reacted as expected. Results on target cell population are indicated in the following table: RESULTS: ANTIBODY / CLONE RESULT Block B H Pylori (polyclonal) negative These tests were developed and their performance characteristics determined by [facility]. They may not have been cleared or approved by the U.S. Food and Drug Administration. The FDA has determined that such clearance or approval is not necessary. INTERPRETATION: B. Gastric antrum, biopsy: Negative for Helicobacter pylori organisms. AM:crow 11/05/2021
[2021-11-03] MEDS: Lactated Ringers 1,000 ML 15 ML IV (11:35)
--- NOTE | 2021-11-03 12:00 | COLBX_PTH ---
PATIENT: NEISHA MCNEAL LOC: EN U#:[id number] AGE/SX: 71/F ROOM: RE11/03/[address]: Dr. Chepe Hansen DO : 1950 BED: DIS: 11/03/2021 SPEC #: [id number] RECD: 11/03/21 16:18 STATUS: MAYNOR REKennedy #: [id number] JOSE: 11/03/21 12:[address]: Chepe Hansen DEPT: SURGICAL PATHOLOGY RECD BY: Samir Huang ENTERED: 11/04/21 09:48 SP TYPE: COLON BX OTHR DR: Dr. [facility] DO Tissues: A - Duodenum, NOS B - Gastric mucous membrane C - Gastric mucous membrane D - Gastric mucous membrane E - Esophagus, NOS F - Esophagus, NOS G - COLON BIOPSY H - Ascending colon I - Rectum, NOS Procedures: Special Stain Group II Surgery Specimen Level IV Alcian Blue/PAS (control) HEADER OPERATION: Colonoscopy, [place] PRE-OP DIAGNOSIS: Abdominal pain, diarrhea TISSUE SUBMITTED: A ? Duodenum biopsy, B ? Gastric antrum biopsy for H. pylori and path, C ? Gastric ulcer biopsy, D ? Gastric body biopsy, E ? Distal esophagus biopsy, F ? Random esophagus biopsy, G ? Random colon biopsy, H ? Hot snare polyp ascending colon, I ? Polyp rectum biopsy MICROSCOPIC DIAGNOSIS A. Duodenum, biopsy: No pathologic change. B. Gastric antrum, biopsy: Chronic gastritis. See comment. C. Gastric ulcer, biopsy: Fragments of gastric mucosa with mild chronic inflammation. D. Gastric body, biopsy: Fragments of gastric mucosa with chronic inflammation. E. Distal esophagus, biopsy: Gastroesophageal junctional mucosa with mild chronic inflammation. No evidence of goblet cell metaplasia. See comment. F. Esophagus, random biopsy: No pathologic change. G. Colon, random biopsy: Mild melanosis coli. H. Ascending colon polyp, biopsy: Hyperplastic polyp. Fecal debris. I. Rectal polyp, biopsy: Hyperplastic polyp. AM:crow 11/05/2021 COMMENT B. The results of immunohistochemistry for Helicobacter pylori will be reported separately ([id number]). E. Alcian blue/PAS stain with matched control supports the above diagnosis. MICROSCOPIC DESCRIPTION Slides are reviewed. GROSS DESCRIPTION A - Received in fixative is one container labeled with the patient's name and designated duodenum. The specimen consists of multiple irregular fragments of light ramirez soft tissue that in aggregate measure 1 x 0.5 x 0.1 cm. The specimen is totally submitted in one cassette. B - Received in fixative is one container labeled with the patient's name and designated gastric antrum biopsy. The specimen consists of two irregular fragments of light ramirez soft tissue that in aggregate measure 0.6 x 0.3 x 0.1 cm. The specimen is totally submitted in one cassette. C - Received in fixative is one container labeled with the patient's name and designated gastric ulcer biopsy. The specimen consists of two irregular fragments of light ramirez soft tissue that in aggregate measure 0.8 x 0.7 x 0.1 cm. The specimen is totally submitted in one cassette. D - Received in fixative is one container labeled with the patient's name and designated gastric body. The specimen consists of two irregular fragments of light ramirez soft tissue that in aggregate measure 0.7 x 0.7 x 0.1 cm. The specimen is totally submitted in one cassette. E - Received in fixative is one container labeled with the patient's name and designated distal esophagus. The specimen consists of two irregular fragments of light ramirez soft tissue that in aggregate measure 0.9 x 0.5 x 0.1 cm. The specimen is totally submitted in one cassette. F - Received in fixative is one container labeled with the patient's name and designated random esophagus. The specimen consists of multiple irregular fragments of light ramirez soft tissue that in aggregate measure 1 x 0.6 x 0.1 cm. The specimen is totally submitted in one cassette. G - Received in fixative is one container labeled with the patient's name and designated random colon biopsy. The specimen consists of multiple irregular fragments of light ramirez soft tissue that in aggregate measure 1.5 x 1.2 x 0.1 cm. The specimen is totally submitted in one cassette. H - Received in fixative is one container labeled with the patient's name and designated polyp ascending colon. The specimen consists of multiple irregular fragments of light ramirez soft tissue that in aggregate measure 0.5 x 0.2 x <0.1 cm. The specimen is totally submitted in one cassette. I - Received in fixative is one container labeled with the patient's name and designated rectal polyp biopsy. The specimen consists of one irregular fragment of light ramirez soft tissue that measures 0.5 x 0.3 x 0.1 cm. The specimen is totally submitted in one cassette. / AM:crow 11/04/21 TC:3 CPT: 41389 x9
--- NOTE | 2021-11-03 12:13 | PCM.HP.BLA ---
History and Physical Date of Admission: 11/03/21 1 F who presents to the office today for Would like to establish care for nausea with infrequent vomiting, diarrhea - these are occurring every day. She also gets R scapular pain that has been getting worse - previous workups include CT angio of the abdomen pelvis, 2 ERCPs status post stent placement, MRCP gallbladder. She was referred to a doctor in [place] who thought scapular pain was related to musculoskeletal. She completed physical therapy which was not effective. She feels shoulder pain is relieved with BM of passing gas. Does interrupt sleep. Post cholecystectomy. Tries to avoid pork, milk and fatty foods. MRI performed 2019 to aid in diagnosis of shoulder pain. Last colonoscopy 5 years ago and needs scheduled. Last EGD was 4 years ago. ROS ENT ENT: Positive for nasal congestion Cardio Cardiology: Positive for leg pain with exertion Gastro GI: Positive for bloating, diarrhea, heartburn, nausea/dyspepsia and vomiting Genitourinary-Female: Positive for urinary urgency and genital itching Musc Musculoskeletal: Positive for joint pain, back pain, joint swelling, stiffness, Arthritis, leg pain at night and leg pain with exertion Exam Const General: cooperative and comfortable Nutritional Appearance: average body habitus and well nourished HENMT Head: normal to inspection Ears: hearing grossly normal bilaterally Nose: external nose normal Face and sinus: normal facial exam Mouth: oral mucosae normal Throat: posterior oropharynx normal Eyes General: appearance normal, both eyes and all related structures Neck Neck: normal visual inspection Chest Chest palpation & inspection: normal inspection of the chest and normal palpation of entire chest wall Resp Effort & Inspection: normal respiratory effort Auscultation: Bilateral: Clear to Auscultation Cardio Palpation: normal PMI Rate: regular rate Rhythm: regular rhythm GI Inspection: normal to inspection Auscultation: normal bowel sounds Percussion: normal to percussion Palpation: no hepatosplenomegaly Skin General: no rashes or lesions noted Neuro General: patient alert Extrem General: normal to inspection Psych Affect: normal affect Quality Reporting Tobacco Screening ([facility] 138) Smoking Status: Never smoker Assessment and Plan Assessment and Plan (1) Abdominal pain: Status: Acute Orders: Orders: EGD 11/02/21 Plan - Dr. Mo Friend, DO: She sounds like she has a functional bowel disease. However no definite diagnosis would be duodenal diverticulitis. Last MRCP did show some sludge in her bile duct along with some air secondary to instrumentation. Her LFTs have been normal. I suspect that she could be suffering from a duodenal diverticulitis involving the ampulla which could be causing her symptoms. I will have to look at her endoscopy with a side-viewing scope so we can evaluate her known duodenal diverticulum. We will also perform a regular endoscopy to evaluate her upper GI tract with biopsies of the stomach and small bowel. She does have a small hiatal hernia that was seen on imaging and I am not sure if that is causing some of her symptoms to. (2) Diarrhea: Status: Acute Plan - Dr. Mo Friend, DO: She will undergo evaluate her lower GI tract to see if she has microscopic colitis as etiology of her diarrhea. Plan Details Other Medications:
--- NOTE | 2021-11-03 12:46 | OP.CCLET_ITS ---
07/28/2022 Jessica Corona [address] [place] [address] Re : Upper GI endoscopy procedure for Shannon Tobar Dear Dr. Corona This procedure was performed on Wednesday, November 03, 2021. My impressions and recommendations are as follows: Impressions : - LA Grade A reflux esophagitis. Biopsied. - Medium-sized hiatal hernia. - Non-bleeding gastric ulcer with no stigmata of bleeding. Biopsied. - Gastritis. Biopsied. - Erythematous duodenopathy. Biopsied. Recommendations : - Discharge patient to home. - Resume previous diet. - Continue present medications. - Await pathology results. - Return to my office in 2 weeks. My findings are described in the full procedure note, which is enclosed. If I can be of further assistance, please feel free to contact me at . Sincerely, Chepe Friend, 11/03/2021 12:45:51 PM This report has been signed electronically.
--- NOTE | 2021-11-03 12:46 | OP.EGD_ITS ---
Patient Name: Shannon Tobar Procedure Date: 11/03/2021 11:38 AM Date of : 1950 Age: 71 Procedure: Upper GI endoscopy Indications: Dyspepsia, Heartburn Providers: Chepe Hansen DO Medicines: See the Anesthesia note for documentation of the administered medications Patient Profile: This is a 71 year old female. Refer to note in patient chart for documentation of history and physical. Patient has symptoms of acute abdominal cramping, chronic abdominal distention and acute epigastric abdominal pain. Complications: No immediate complications. Procedure: Pre-Anesthesia Assessment: - Prior to the procedure, a History and Physical was performed, and patient medications and allergies were reviewed. The risks and benefits of the procedure and the sedation options and risks were discussed with the patient. All questions were answered and informed consent was obtained. Patient identification and proposed procedure were verified by the physician in the pre-procedure area. Mental Status Examination: alert and oriented. Respiratory Examination: clear to auscultation. CV Examination: normal. Prophylactic Antibiotics: The patient does not require prophylactic antibiotics. Prior Anticoagulants: The patient has taken no previous anticoagulant or antiplatelet agents. ASA Grade Assessment: II - A patient with mild systemic disease. After reviewing the risks and benefits, the patient was deemed in satisfactory condition to undergo the procedure. The anesthesia plan was to use moderate sedation / analgesia (conscious sedation). Immediately prior to administration of medications, the patient was re-assessed for adequacy to receive sedatives. The heart rate, respiratory rate, oxygen saturations, blood pressure, adequacy of pulmonary ventilation, and response to care were monitored throughout the procedure. The physical status of the patient was re-assessed after the procedure. After obtaining informed consent, the endoscope was passed under direct vision. Throughout the procedure, the patient's blood pressure, pulse, and oxygen saturations were monitored continuously. The Endoscope was introduced through the mouth, and advanced to the second part of duodenum. The upper GI endoscopy was accomplished without difficulty. The patient tolerated the procedure well. Moderate Sedation: Moderate (conscious) sedation was administered by the endoscopy nurse and supervised by the endoscopist. The patient's oxygen saturation, heart rate, blood pressure and response to care were monitored. Total physician intraservice time was 15 minutes. Scope In: 12:31:15 PM Scope Out: 12:40:19 PM Total Procedure Duration Time 0 hours 9 minutes 4 seconds Findings: LA Grade A (one or more mucosal breaks less than 5 mm, not extending between tops of 2 mucosal folds) esophagitis with no bleeding was found 34 to 35 cm from the incisors. Biopsies were taken with a cold forceps for histology. Verification of patient identification for the specimen was done. Estimated blood loss was minimal. A medium-sized hiatal hernia was present. One non-bleeding superficial gastric ulcer with no stigmata of bleeding was found in the gastric body. The lesion was 6 mm in largest dimension. This was biopsied with a cold forceps for histology. Verification of patient identification for the specimen was done. Estimated blood loss was minimal. Scattered moderate inflammation characterized by congestion (edema) and erythema was found in the gastric antrum. Biopsies were taken with a cold forceps for histology. Verification of patient identification for the specimen was done. Estimated blood loss: none. Diffuse mildly erythematous mucosa without active bleeding and with no stigmata of bleeding was found in the duodenal bulb, in the first portion of the duodenum and in the second portion of the duodenum. Biopsies were taken with a cold forceps for histology. Estimated blood loss: none. Impression: - LA Grade A reflux esophagitis. Biopsied. - Medium-sized hiatal hernia. - Non-bleeding gastric ulcer with no stigmata of bleeding. Biopsied. - Gastritis. Biopsied. - Erythematous duodenopathy. Biopsied. Recommendation: - Discharge patient to home. - Resume previous diet. - Continue present medications. - Await pathology results. - Return to my office in 2 weeks. Procedure Code(s): --- Professional --- 10494, Esophagogastroduodenoscopy, flexible, transoral; with biopsy, single or multiple 66516, 59, Moderate sedation services provided by the same physician or other qualified health care management associate performing the diagnostic or therapeutic service that the sedation supports, requiring the presence of an independent trained observer to assist in the monitoring of the patient's level of consciousness and physiological status; initial 15 minutes of intraservice time, patient age 5 years or older CPT copyright 2017 [employer]. All rights reserved. The codes documented in this report are preliminary and upon aircraft inspector review may be revised to meet current compliance requirements. Chepe Hansen DO 11/03/2021 12:45:51 PM This report has been signed electronically. Number of Addenda: 1 Note Initiated On: 11/03/2021 11:38 AM Addendum Number: 1 Addendum Date: 07/28/2022 7:10:24 AM MAC was used instead of moderate sedation for the patient. Chepe Hansen DO 07/28/2022 7:10:31 AM This report has been signed electronically.
--- NOTE | 2021-11-03 13:14 | OP.COLON_ITS ---
Patient Name: Shannon Tobar Procedure Date: 11/03/2021 12:41 PM Date of : 1950 Age: 71 Procedure: Colonoscopy Indications: Chronic diarrhea, Clinically significant diarrhea of unexplained origin Providers: Chepe Hansen DO Medicines: See the Anesthesia note for documentation of the administered medications Patient Profile: This is a 71 year old female. Refer to note in patient chart for documentation of history and physical. Patient has symptoms of acute abdominal cramping, chronic abdominal distention and acute epigastric abdominal pain. Last Colonoscopy: date unknown. Complications: No immediate complications. Procedure: Pre-Anesthesia Assessment: - Prior to the procedure, a History and Physical was performed, and patient medications and allergies were reviewed. The risks and benefits of the procedure and the sedation options and risks were discussed with the patient. All questions were answered and informed consent was obtained. Patient identification and proposed procedure were verified by the physician in the pre-procedure area. Mental Status Examination: alert and oriented. Respiratory Examination: clear to auscultation. CV Examination: normal. Prophylactic Antibiotics: The patient does not require prophylactic antibiotics. Prior Anticoagulants: The patient has taken no previous anticoagulant or antiplatelet agents. ASA Grade Assessment: II - A patient with mild systemic disease. After reviewing the risks and benefits, the patient was deemed in satisfactory condition to undergo the procedure. The anesthesia plan was to use moderate sedation / analgesia (conscious sedation). Immediately prior to administration of medications, the patient was re-assessed for adequacy to receive sedatives. The heart rate, respiratory rate, oxygen saturations, blood pressure, adequacy of pulmonary ventilation, and response to care were monitored throughout the procedure. The physical status of the patient was re-assessed after the procedure. After I obtained informed consent, the scope was passed under direct vision. Throughout the procedure, the patient's blood pressure, pulse, and oxygen saturations were monitored continuously. The pediatric colonoscope was introduced through the anus and advanced to the terminal ileum. The colonoscopy was performed with ease. The patient tolerated the procedure well. The quality of the bowel preparation was adequate. Moderate Sedation: Moderate (conscious) sedation was administered by the endoscopy nurse and supervised by the endoscopist. The patient's oxygen saturation, heart rate, blood pressure and response to care were monitored. Total physician intraservice time was 15 minutes. Scope In: 12:47:54 PM Scope Withdrawal Time 0 hours 14 minutes 44 seconds Scope Out: 1:06:26 PM Total Procedure Duration Time 0 hours 18 minutes 32 seconds Findings: The perianal and digital rectal examinations were normal. A 5 mm polyp was found in the rectum. The polyp was sessile. The polyp was removed with a hot snare. Resection and retrieval were complete. Verification of patient identification for the specimen was done. Estimated blood loss was minimal. A 5 mm polyp was found in the ascending colon. The polyp was sessile. The polyp was removed with a hot snare. Resection and retrieval were complete. Verification of patient identification for the specimen was done. Estimated blood loss was minimal. Multiple small and large-mouthed diverticula were found in the recto-sigmoid colon, sigmoid colon and descending colon. There was no evidence of diverticular bleeding. No additional abnormalities were found on retroflexion. An area of mildly congested mucosa was found in the rectum, in the recto-sigmoid colon, in the sigmoid colon, in the descending colon, in the transverse colon and in the ascending colon. Biopsies were taken with a cold forceps for histology. Verification of patient identification for the specimen was done. Estimated blood loss was minimal. Impression: - One 5 mm polyp in the rectum, removed with a hot snare. Resected and retrieved. - One 5 mm polyp in the ascending colon, removed with a hot snare. Resected and retrieved. - Moderate diverticulosis in the recto-sigmoid colon, in the sigmoid colon and in the descending colon. There was no evidence of diverticular bleeding. Recommendation: - Discharge patient to home. - Resume previous diet. - Continue present medications. - Await pathology results. - Return to my office in 2 weeks. - Repeat colonoscopy is recommended for surveillance. The colonoscopy date will be determined after pathology results from today's exam become available for review. Procedure Code(s): --- Professional --- 77473, Colonoscopy, flexible; with removal of tumor(s), polyp(s), or other lesion(s) by snare technique 33858, 59, Colonoscopy, flexible; with biopsy, single or multiple 03537, 59, Moderate sedation services provided by the same physician or other qualified health veterinarian laboratory animal care performing the diagnostic or therapeutic service that the sedation supports, requiring the presence of an independent trained observer to assist in the monitoring of the patient's level of consciousness and physiological status; initial 15 minutes of intraservice time, patient age 5 years or older CPT copyright 2017 [employer]. All rights reserved. The codes documented in this report are preliminary and upon public relations studies director review may be revised to meet current compliance requirements. Chepe Hansen DO 11/03/2021 1:14:13 PM This report has been signed electronically. Number of Addenda: 1 Note Initiated On: 11/03/2021 12:41 PM Addendum Number: 1 Addendum Date: 07/28/2022 7:10:40 AM MAC was used instead of moderate sedation for the patient. Chepe Hansen DO 07/28/2022 7:10:44 AM This report has been signed electronically.
--- NOTE | 2021-11-03 13:15 | OP.CCLET_ITS ---
07/28/2022 Jessica Corona [address] [place] [address] Re : Colonoscopy procedure for Shannon Tobar Dear Dr. Corona This procedure was performed on Wednesday, November 03, 2021. My impressions and recommendations are as follows: Impressions : - One 5 mm polyp in the rectum, removed with a hot snare. Resected and retrieved. - One 5 mm polyp in the ascending colon, removed with a hot snare. Resected and retrieved. - Moderate diverticulosis in the recto-sigmoid colon, in the sigmoid colon and in the descending colon. There was no evidence of diverticular bleeding. Recommendations : - Discharge patient to home. - Resume previous diet. - Continue present medications. - Await pathology results. - Return to my office in 2 weeks. - Repeat colonoscopy is recommended for surveillance. The colonoscopy date will be determined after pathology results from today's exam become available for review. My findings are described in the full procedure note, which is enclosed. If I can be of further assistance, please feel free to contact me at . Sincerely, Chepe Hansen, 11/03/2021 1:14:13 PM This report has been signed electronically.
== END 2021-11-03 14:22 ==
LOC: EN 10:56 → AC 10:57
PROVIDERS: PCP Internal Medicine; Referring Provider Internal Medicine; Visit Provider Internal Medicine Gastroenterology
PROC: 0DJD8ZZ Inspection of Lower Intestinal Tract, Via Natural or Artificial Opening Endoscopic (ICD-10-PCS; CPT 45378; principal; 2021-11-03 11:55)
DX: K57.50 Diverticulosis of both small and large intestine without perforation or abscess without bleeding (principal); K62.1 Rectal polyp; K29.50 Unspecified chronic gastritis without bleeding; K44.9 Diaphragmatic hernia without obstruction or gangrene; K63.5 Polyp of colon; K21.00 Gastro-esophageal reflux disease with esophagitis, without bleeding; K25.9 Gastric ulcer, unspecified as acute or chronic, without hemorrhage or perforation; K31.89 Other diseases of stomach and duodenum; K52.9 Noninfective gastroenteritis and colitis, unspecified
CPT/HCPCS: 43239; 45380; 45385; 88305; 88313; 88342; J7120; J2405

== ENCOUNTER → 2022-03-18 | Outpatient (CLI) | payer MEDICARE, OTHER, SELFPAY ==
[2022-03-18 07:21] LABS: Absolute Lymphocyte Count 1.38 X10^3/uL (0.83-4.51); Absolute Neutrophil Count 3.9 X10^3/uL (2.0-7.7); Basophil# 0.03 X10^3/uL; Basophil% 0.5 % (0-1); Eosinophils% 6.4 % (0-5); Hematocrit 42.2 % (37-47); Hemoglobin 13.5 g/dL (12.0-15.0); Lymphocyte # 1.38 X10^3/ul (0.83-4.51); Mean Corpuscular Hgb 28.8 pg (27.0-32.0); Mean Corpuscular Volume 90.2 fL (81-99); Mean Platelet Vol. 9.2 fl (6.2-12.0); Monocyte# 0.54 X10^3/uL; Monocyte% 8.6 % (0-10); NRBC Flagged by Analyzer 0 % (0-5); Neutrophil # 3.91 X10^3/uL (2.7-7.7); Neutrophil % 62.2 % (47-70); Platelet Count 271 K/mm3 (150-450); Red Blood Count 4.68 M/mm3 (4.2-5.4); White Blood Count 6.3 K/mm3 (4.4-11.0)
[2022-03-18 07:46] LABS: ALB/GLOB Ratio 0.9 RATIO (0.9-2.4); AST(SGOT) 32 U/L (15-37); Alanine Aminotransfer ALT/SGPT 53 U/L (13-56); Albumin, Serum 3.6 g/dL (3.2-5.0); Alkaline Phosphatase 65 U/L (45-117); Amylase 40 U/L (25-115); Anion Gap 3 (5-15); BUN 14 mg/dL (7-18); BUN/Creat Ratio 19.3 RATIO (10-20); Chloride 104 mmol/L (98-107); Creatinine, Serum 0.72 mg/dL (0.55-1.02); EST Glomerular Filtration Rate 84 mL/min (>60); Est Glom Filt Rate - Afr Amer 101 mL/min (>60); Globulin 3.9 g/dL (2.2-4.2); Glucose 110 mg/dL (74-106); Lipase 67 U/L (73-393); Potassium 3.5 mmol/L (3.5-5.1); Protein, Total 7.5 g/dL (6.4-8.2); Sodium Level 138 mmol/L (136-145)
[2022-03-20 22:14] LABS: Gastrin, Serum 60 pg/mL (0-115)
== END | disposition home or self-care (01) ==
LOC: LAB 07:04
PROVIDERS: PCP Internal Medicine; Referring Provider Internal Medicine Gastroenterology; Visit Provider Internal Medicine Gastroenterology
DX: R10.9 Unspecified abdominal pain (principal)
CPT/HCPCS: 36415; 80053; 82150; 82941; 83690; 85025

== ENCOUNTER → 2022-03-23 | Outpatient (CLI) | payer MEDICARE, OTHER, SELFPAY ==
--- NOTE | 2022-03-23 08:03 | US_ITS ---
STUDY: ABDOMINAL ULTRASOUND REASON FOR EXAM: Female, 72 years old. Abd pain TECHNIQUE: Transabdominal ultrasound was performed with real-time and static romero scale imaging. TECHNICAL QUALITY: Adequate. COMPARISON: Comparison is made with prior examination dated 02/03/2018. FINDINGS: Liver: The liver measures 15.8 cm. There is increased echogenicity consistent with fatty infiltration. Mild degree of the central intrahepatic biliary ductal dilatation most likely secondary to the postcholecystectomy state. There is hepatic color flow. The direction of portal flow is hepatopetal. There is no demonstrated mass lesion. Gallbladder: The patient is status post cholecystectomy. Common Bile Duct (C.B.D.): The common bile duct measures 10 mm. Pancreas: Normal size of the head, body and tail of the pancreas. There is increased echogenicity of the pancreas. There is no demonstrated pancreatic mass or cyst. Spleen: Normal size of the spleen. The spleen measures 11.1 cm x 4.1 cm x 4 cm. Right Kidney: Normal size of the right kidney. The right kidney measures 10.4 cm x 5.2 cm x 4.7 cm. Normal renal cortex. The right cortex measures 1.4 cm. There is no demonstrated renal mass or cyst. There is no right hydronephrosis. Left Kidney: Normal size of the left kidney. The left kidney measures 10.8 cm x 5.6 cm x 6.1 cm. Normal renal cortex. The left cortex measures 1.5 cm. Several small left parapelvic cysts are seen. There is no left hydronephrosis. Aorta: Unremarkable I.V.C.: The IVC is patent. There is no ascites. US/Abdomen Complete IMPRESSION: Status post cholecystectomy with mild degree of central intrahepatic biliary ductal dilatation. Fatty infiltration of the liver. Small left parapelvic cysts. Electronically Signed: Kvng Michael MD at 12:20 EDT ,
== END | disposition home or self-care (01) ==
LOC: US 08:02
PROVIDERS: PCP Internal Medicine; Referring Provider Internal Medicine Gastroenterology; Visit Provider Internal Medicine Gastroenterology
DX: R10.9 Unspecified abdominal pain (principal)
CPT/HCPCS: 76700

== ENCOUNTER → 2022-03-31 | Outpatient (CLI) | payer MEDICARE, OTHER, SELFPAY ==
[2022-03-31 10:26] LABS: Erythrocyte Sedimentation Rate 30 mm/hr (0-30)
[2022-03-31 10:29] LABS: Absolute Lymphocyte Count 1.59 X10^3/uL (0.83-4.51); Absolute Neutrophil Count 4.1 X10^3/uL (2.0-7.7); Basophil# 0.05 X10^3/uL; Basophil% 0.7 % (0-1); Eosinophil# 0.43 X10^3/uL; Eosinophils% 6.2 % (0-5); Hematocrit 41.2 % (37-47); Hemoglobin 13.3 g/dL (12.0-15.0); Lymphocyte # 1.59 X10^3/ul (0.83-4.51); Mean Corp Hgb Conc 32.3 g/dL (32-36); Mean Corpuscular Hgb 29.2 pg (27.0-32.0); Mean Corpuscular Volume 90.4 fL (81-99); Mean Platelet Vol. 9.2 fl (6.2-12.0); Monocyte# 0.66 X10^3/uL; Monocyte% 9.6 % (0-10); NRBC Flagged by Analyzer 0 % (0-5); Neutrophil # 4.13 X10^3/uL (2.7-7.7); Neutrophil % 59.9 % (47-70); Platelet Count 316 K/mm3 (150-450); RBC Distribution Width SD 42.9 fl (35.1-43.9); Red Blood Count 4.56 M/mm3 (4.2-5.4); White Blood Count 6.9 K/mm3 (4.4-11.0)
[2022-03-31 10:56] LABS: ALB/GLOB Ratio 0.9 RATIO (0.9-2.4); AST(SGOT) 16 U/L (15-37); Alanine Aminotransfer ALT/SGPT 25 U/L (13-56); Albumin, Serum 3.5 g/dL (3.2-5.0); Alkaline Phosphatase 60 U/L (45-117); Amylase 43 U/L (25-115); Anion Gap 5 (5-15); BUN 17 mg/dL (7-18); BUN/Creat Ratio 21.6 RATIO (10-20); CRP < 2.90 mg/L (0.0-3.0); Calcium,Total 9.4 mg/dL (8.5-10.1); Chloride 107 mmol/L (98-107); Creatinine, Serum 0.79 mg/dL (0.55-1.02); EST Glomerular Filtration Rate 76 mL/min (>60); Est Glom Filt Rate - Afr Amer 92 mL/min (>60); Globulin 3.9 g/dL (2.2-4.2); Glucose 95 mg/dL (74-106); LDH 210 U/L (84-246); Lipase 77 U/L (73-393); Potassium 4.4 mmol/L (3.5-5.1); Protein, Total 7.4 g/dL (6.4-8.2); Sodium Level 139 mmol/L (136-145)
[2022-04-09 14:10] LABS: Angiotensin Convert Enzyme 34 U/L (14-82); Cytoplasmic Ab (C-ANCA) <1:20 titer (Neg:<1:20); Immunoglobulin A 155 mg/dL (64-422); Immunoglobulin E 66 IU/mL (6-495); Immunoglobulin G 978 mg/dL (586-1602)
[2022-04-09 16:20] LABS: Immunoglobulin M 140 mg/dL (26-217); Perinuclear Ab (P-ANCA) <1:20 titer (Neg:<1:20)
== END | disposition home or self-care (01) ==
PROVIDERS: PCP Internal Medicine; Visit Provider Internal Medicine Gastroenterology
DX: R19.7 Diarrhea, unspecified (principal); E78.5 Hyperlipidemia, unspecified; R10.9 Unspecified abdominal pain
CPT/HCPCS: 36415; 80053; 82150; 82164; 82784; 82785; 83615; 83690; 85025; 85652; 86140; 86256

== ENCOUNTER → 2022-04-01 | Outpatient (CLI) | payer MEDICARE, OTHER, SELFPAY ==
[2022-04-02 22:55] LABS: Fats, Neutral Normal (.); Fats, Total Normal (.)
== END | disposition home or self-care (01) ==
LOC: LAB 08:39
PROVIDERS: PCP Internal Medicine; Referring Provider Internal Medicine Gastroenterology; Visit Provider Internal Medicine Gastroenterology
DX: R10.9 Unspecified abdominal pain (principal)
CPT/HCPCS: 82653; 82705; 83630

== ENCOUNTER → 2022-04-05 | Outpatient (CLI) | payer MEDICARE, OTHER, SELFPAY ==
[2022-04-05 07:21] LABS: Absolute Lymphocyte Count 1.57 X10^3/uL (0.83-4.51); Absolute Neutrophil Count 3.8 X10^3/uL (2.0-7.7); Basophil# 0.04 X10^3/uL; Basophil% 0.6 % (0-1); Eosinophil# 0.43 X10^3/uL; Eosinophils% 6.7 % (0-5); Hematocrit 40.9 % (37-47); Hemoglobin 12.8 g/dL (12.0-15.0); Lymphocyte # 1.57 X10^3/ul (0.83-4.51); Lymphocyte % 24.4 % (19-41); Mean Corp Hgb Conc 31.3 g/dL (32-36); Mean Corpuscular Hgb 28.6 pg (27.0-32.0); Mean Corpuscular Volume 91.5 fL (81-99); Mean Platelet Vol. 9.2 fl (6.2-12.0); Monocyte# 0.55 X10^3/uL; Monocyte% 8.5 % (0-10); NRBC Flagged by Analyzer 0 % (0-5); Neutrophil # 3.82 X10^3/uL (2.7-7.7); Neutrophil % 59.3 % (47-70); Platelet Count 282 K/mm3 (150-450); RBC Distribution Width SD 43.6 fl (35.1-43.9); Red Blood Count 4.47 M/mm3 (4.2-5.4); White Blood Count 6.4 K/mm3 (4.4-11.0)
[2022-04-06 09:17] LABS: Carbohydrate Ag 19-9 2261 27 U/mL (0-35)
== END | disposition home or self-care (01) ==
LOC: LAB 07:06
PROVIDERS: PCP Internal Medicine; Referring Provider Internal Medicine Gastroenterology; Visit Provider Internal Medicine Gastroenterology
DX: K83.8 Other specified diseases of biliary tract (principal)
CPT/HCPCS: 36415; 85025; 86301

== ENCOUNTER → 2022-04-09 | Outpatient (CLI) | payer MEDICARE, OTHER, SELFPAY ==
--- NOTE | 2022-04-09 07:52 | MRI_ITS ---
STUDY: MR MRCP WITHOUT CONTRAST REASON FOR EXAM: Female, 72 years old. duct dilation evaluation TECHNIQUE: Standard MRCP technique was utilized. 3-D postprocessing images were reviewed. COMPARISON: 02/14/2018. FINDINGS: Gall Bladder: Gall bladder is surgically absent. Cystic duct: Normal with no demonstrated fixed filling defect. Intrahepatic ducts: Mildly dilated with no visualized mass or stricture. There is pneumobilia. Common hepatic duct: Dilated measuring up to 1.3 cm. No T2 dark stone or stricture. Common bile duct: Dilated measuring up to 1.3 cm. No T2 dark stone or stricture. Pancreatic duct: Normal with no demonstrated fixed filling defect, dilation or stricture. Other: Segmental area of increased intensity in the right hepatic lobe seen on T2-weighted images only. Bilateral parapelvic renal cysts. MRI/MRCP Abdomen without Contrast IMPRESSION: Mild intra and extrahepatic biliary duct dilatation most likely secondary to reservoir effect status post cholecystectomy. No obstructing stone, mass or stricture is seen. There is also pneumobilia of unknown etiology. Possible differential includes but is not limited to recent instrumentation, incompetent Sphincter of Oddi, and other causes. Segmental area of increased intensity in the right hepatic lobe seen on T2-weighted images only. This most likely represents a transient hepatic intensity difference (THID). Electronically Signed: Kvng Noel MD at 17:46 EDT ,
== END | disposition home or self-care (01) ==
LOC: MRI 07:52
PROVIDERS: PCP Internal Medicine; Referring Provider Internal Medicine Gastroenterology; Visit Provider Internal Medicine Gastroenterology
DX: K83.8 Other specified diseases of biliary tract (principal)
CPT/HCPCS: 74181

== ENCOUNTER → 2022-06-17 | Outpatient (CLI) | payer MEDICARE, OTHER, SELFPAY | END | disposition home or self-care (01) | PROVIDERS: PCP Internal Medicine; Referring Provider Internal Medicine Gastroenterology; Visit Provider Internal Medicine Gastroenterology | DX: R19.7 Diarrhea, unspecified (principal) | CPT/HCPCS: 36415 ==

== ENCOUNTER → 2022-06-19 | Outpatient (CLI) | payer MEDICARE, OTHER, SELFPAY ==
[2022-07-03 15:40] LABS: 5-HIAA, 24UR 8.5 mg/24 hr (0.0-14.9); 5-HIAA, UR 7.4 mg/L (Undefined)
== END | disposition home or self-care (01) ==
LOC: LAB 07:23
PROVIDERS: PCP Internal Medicine; Visit Provider Internal Medicine Gastroenterology
DX: R19.7 Diarrhea, unspecified (principal)
CPT/HCPCS: 83497

== ENCOUNTER → 2022-07-05 | Outpatient (CLI) | payer MEDICARE, OTHER, SELFPAY ==
--- NOTE | 2022-07-05 07:56 | NM_ITS ---
CLINICAL: 72-year-old female with history of elevation of the chromogranin A. OCTREOTIDE-SOMATOSTATIN RECEPTOR SPECT-CT SCINTIGRAPHY COMPARISON: MRI of the abdomen report 04/09/2022 FINDINGS: Following the intravenous administration of 6.7 mCi of In 111 Octreotide, whole body, spot planar projections and emission computed tomographic reconstructions of the abdomen and pelvis obtained at 4, 24 and 48 hours post radiopharmaceutical administration reveal: 1. There is normal physiologic radiopharmaceutical identified in the hepatic and splenic parenchyma and visualized intestinal tract, both renal units and urinary bladder on review of sequential planar and SPECT reconstructions. 2. No definitive scintigraphic abnormalities are defined. NM/Tumor Localization SPECT IMPRESSION: 1. NEGATIVE In-111 OCTREOTIDE SOMATOSTATIN RECEPTOR SCINTIGRAPHY. 2. There is no scintigraphic evidence of somatostatin avid neoplasia on the current examination. Electronically Signed: Celestine Garza, at 7:53 EDT ,
== END | disposition home or self-care (01) ==
PROVIDERS: PCP Internal Medicine; Referring Provider Internal Medicine Gastroenterology; Visit Provider Internal Medicine Gastroenterology
DX: R89.9 Unspecified abnormal finding in specimens from other organs, systems and tissues (principal)
CPT/HCPCS: 78803; 78804; A9572

== ENCOUNTER → 2022-09-07 | Outpatient (CLI) | payer MEDICARE, OTHER, SELFPAY ==
--- NOTE | 2022-09-07 07:35 | BI_ITS ---
MAMMOGRAPHY - BILATERAL SCREENING REASON FOR EXAM: Female, 72 years old. Routine annual screening examination. PERTINENT HISTORY: Sisters with breast cancer. Aunt with breast cancer. TECHNIQUE: Digital bilateral breast rocky (3D mammographic acquisition) in the CC and MLO projections. 2-D mediolateral oblique (MLO) and craniocaudad (CC) views of both breasts were obtained. CAD: Full Field Digital Mammography with Computer Added Detection was performed. COMPARISON: Comparison is made with prior study 08/25/2021 08/20/2020. FINDINGS: Breast Composition: There are scattered areas of fibroglandular density. There are no dominant masses or suspicious calcifications. No other significant abnormalities are identified. There has been no significant change since the prior study. BI/SCRN MAMM (CAD)W/ROCKY BILAT IMPRESSION: Stable bilateral screening mammogram. Yearly follow-up mammogram recommended. (A) ASSESSMENT CATEGORY: BIRADS Category 1: Negative. A letter regarding these results will be sent to the patient by the facility within 30 days. Approximately 10% of breast cancers are not detected by mammography. A normal mammogram should not delay biopsy of a clinically suspicious abnormality. [id number] Electronically Signed: Kvng Michael MD at 9:16 EDT ,
== END | disposition home or self-care (01) ==
LOC: OPBI 07:33
PROVIDERS: PCP Internal Medicine; Referring Provider Internal Medicine; Visit Provider Internal Medicine
DX: Z12.31 Encounter for screening mammogram for malignant neoplasm of breast (principal); Z80.3 Family history of malignant neoplasm of breast
CPT/HCPCS: 77063; 77067

== ENCOUNTER → 2022-10-05 | Outpatient (CLI) | payer SELFPAY ==
--- NOTE | 2022-10-05 13:08 | CT_ITS ---
STUDY: CARDIAC CALCIUM SCORING - CT CHEST REASON FOR EXAM: Female, 72 years old. HYPERCHOLESTEROLEMIA. OVER READ ONLY. RADIATION DOSAGE (If Supplied By Facility): CTDIvol = ( 12.19 ) mGy, DLP = ( 219.42 ) mGycm TECHNIQUE: Axial non-enhanced images were acquired through the heart for the sole purpose of measuring coronary artery calcium. Individualized dose optimization techniques were used for this CT. COMPARISON: None. FINDINGS: Visualized surrounding anatomy: Normal. Left Main Coronary Artery: 9.14 Left Anterior Descending Artery: 164 Left Circumflex Artery: 0 Right Coronary Artery: 0 Other: Bilateral bronchial wall thickening of the lower lobes which may be consistent with chronic bronchitis Total Calcium Score: 173 CT/Limited Chest CT Cardiac Only IMPRESSION: A Calcium Score of 173 places the patient in the approximate 50-75 percentile, based on the [facility] data calculator. Please go to: [email or web address] , for a description of the calculator. Electronically Signed: Gilberto Richter MD at 16:54 EST ,
[2022-10-05 13:35] VITALS: BP 130/72; PULSE 70; RESP 16; TEMP 36.9; O2SAT 97; BMI 34.3
--- NOTE | 2022-10-05 17:41 | CA.SCORE ---
Calcium Scoring Date of Study:: 10/05/22 Indications Indications: Hyperlipidemia Coronary Calcium Scoring: High-resolution Computed Tomographic imaging of the chest was performed on 10-05-2022 with particular attention paid to the coronary arteries. Images from the examination were analyzed for the presence and extent of coronary artery calcification , using coronary calcium quantification software. The patient tolerated the procedure well and there were no complications. The results of the coronary calcification analysis are provided below. Findings Coronary Artery Left Main (LM): 9.14 Left Anterior Descending (LAD): 164 Left Circumflex (LCX): 0 Right Coronary Artery (RCA): 0 Total Agatston Score: 173.14 Percentile Ranking: According to republic reference tables between 50% and 75% of patients of the same gender and similar age had the same and/or lower scores. Calcium Scoring Interpretation: 0 No identifiable atherosclerotic plaque. Very low cardiovascular disease risk. <5% chance of presence coronary artery disease A Negative Examination 1-10 Minimal Plaque burden. Significant coronary artery disease very unlikely. 11-100 Mild plaque burden. Likely mild or minimal coronary atherosclerosis. 101-400 Moderate plaque burden Moderate non-obstructive coronary artery disease highly likely. Over 400 Extensive plaque burden. High likelihood of at least one significant coronary stenosis (>50% diameter) Calcium Score: 101 - 400 Moderate non-obstructive coronary artery disease highly like Conclusion: Continue cardiovascular risk factor evaluation and care as deemed appropriate. This note was generated using a voice recognition system and there may be incorrect words, spelling or punctuation that were not noted when reviewing the office note prior to saving.
== END | disposition home or self-care (01) ==
LOC: CT 13:06
PROVIDERS: PCP Internal Medicine; Referring Provider Internal Medicine; Visit Provider Internal Medicine
DX: E78.00 Pure hypercholesterolemia, unspecified (principal)
CPT/HCPCS: 75571; 76380

== ENCOUNTER → 2023-07-26 | Outpatient (CLI) | payer MEDICARE, OTHER, SELFPAY | END | disposition home or self-care (01) | LOC: CT 06:52 | PROVIDERS: PCP Internal Medicine; Referring Provider Specialist; Visit Provider Specialist | DX: M16.12 Unilateral primary osteoarthritis, left hip (principal) ==

== ENCOUNTER 2023-08-17 10:40 | Observation (INO) | payer MEDICARE, OTHER, SELFPAY ==
--- NOTE | 2023-07-26 06:54 | CT_ITS ---
PROCEDURE: CT BILATERAL HIPS WITHOUT CONTRAST REASON FOR EXAM: Female, 73 years old. Preoperative planning for the MakoPlasty Robotic hip surgery with hip pain. TECHNIQUE: Transaxial CT of the hips and knees were obtained. Coronal and sagittal reconstruction images were provided for interpretation. Individualized dose optimization techniques were used for this CT. COMPARISON: None. FINDINGS: Standard protocol for the preoperative planning for the MakoPlasty robotic hip surgery was performed. There is osteopenia. Uncomplicated right total hip arthroplasty. Moderate to marked arthrosis of the left hip with osteophyte formation and small intra-articular osteochondral bodies. 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 CT/Extremity Lower without Contra IMPRESSION: Preoperative MakoPlasty Robotic hip surgical CT evaluation with findings as described above. Electronically Signed: Hany Delgado MD at 9:43 EDT ,
--- NOTE | 2023-07-26 06:54 | EKG12_ITS ---
Test Reason : PRE OP Blood Pressure : / mmHG Vent. Rate : 054 BPM Atrial Rate : 054 BPM P-R Int : 204 ms QRS Dur : 090 ms QT Int : 434 ms P-R-T Axes : 044 -05 038 degrees QTc Int : 411 ms Sinus bradycardia Otherwise normal ECG Confirmed by ANTHONY MCKAY, KAI ([id number]), technical editor MARIA T KHAN ([id number]) on 07/29/2023 11:41:09 AM Referred By: ASYA FRENCH Confirmed By:KAI CRUZ MD
[2023-07-26 08:08] LABS: Absolute Lymphocyte Count 1.59 X10^3/uL (0.83-4.51); Absolute Neutrophil Count 3.6 X10^3/uL (2.0-7.7); Basophil# 0.03 X10^3/uL; Basophil% 0.5 % (0-1); Eosinophil# 0.45 X10^3/uL; Eosinophils% 7.2 % (0-5); Hematocrit 41.8 % (37-47); Hemoglobin 13.3 g/dL (12.0-15.0); Lymphocyte # 1.59 X10^3/ul (0.83-4.51); Lymphocyte % 25.6 % (19-41); Mean Corp Hgb Conc 31.8 g/dL (32-36); Mean Corpuscular Hgb 29.4 pg (27.0-32.0); Mean Corpuscular Volume 92.5 fL (81-99); Mean Platelet Vol. 9.2 fl (6.2-12.0); Monocyte# 0.51 X10^3/uL; Monocyte% 8.2 % (0-10); NRBC Flagged by Analyzer 0 % (0-5); Neutrophil # 3.61 X10^3/uL (2.7-7.7); Neutrophil % 58.2 % (47-70); Platelet Count 275 K/mm3 (150-450); RBC Distribution Width SD 43.9 fl (35.1-43.9); Red Blood Count 4.52 M/mm3 (4.2-5.4); White Blood Count 6.2 K/mm3 (4.4-11.0)
[2023-07-26 08:46] LABS: Albumin, Serum 3.6 g/dL (3.2-5.0); Anion Gap 4 (5-15); BUN 14 mg/dL (7-18); BUN/Creat Ratio 19.2 RATIO (10-20); Calcium,Total 9.3 mg/dL (8.5-10.1); Chloride 104 mmol/L (98-107); Creatinine, Serum 0.73 mg/dL (0.55-1.02); EST Glomerular Filtration Rate 83 mL/min (>60); Est Glom Filt Rate - Afr Amer 100 mL/min (>60); Glucose 111 mg/dL (74-106); Potassium 4.1 mmol/L (3.5-5.1); Sodium Level 139 mmol/L (136-145)
--- NOTE | 2023-08-05 13:45 | PCM.HP.BLA ---
History and Physical History and Physical? Patient Name: Shannon Tobar : 1950 From:? JULIO C GONZALEZ PA-C? DATE OF PRE-OPERATIVE EXAM: 08/05/2023 DATE OF SURGERY:? 08/17/2023 SCHEDULED PROCEDURE:? Robotic-assisted direct anterior left total hip arthroplasty HISTORY OF PRESENT ILLNESS: Preoperative history and physical exam was performed on August 05, 2023.? This is a 33-year-old female who has had ongoing pain for several years for her left hip.? She has had previous right total hip arthroplasty by Dr. Xavi Xiao on May 21, 2020.? Patient states with activities her pain can reach as high as an 8/10.? Her pain has been intermittent.? Pain is increased with going up and down stairs and walking.? Pain is located in the left groin.? She has difficulty with activities of daily living including putting on her socks and shoes as well as shopping secondary to the pain.? She has stumbled secondary to the left hip pain.? Patient feels unsafe for standing long periods.? She has attempted Aleve, ibuprofen and Tylenol in the past.? She does complain of bilateral knee pain.? She is doing well from previous right total hip arthroplasty.? She denies past history of surgery on the left hip.? After failing conservative measures and discussing all treatment options with Dr. Xavi Xiao, the patient does wish to proceed with a robotic-assisted direct anterior left total hip arthroplasty.? We have obtain surgical clearance from the primary care physician Dr. Corona.? Patient currently denies any chest pain, shortness of breath, fevers chills or recent infections.? She also denies past history of DVT or pulmonary embolism.? Patient has medical history pertinent for hypertension, as her esophageal reflux disease, and thyroid disease.? She also does not tolerate narcotics very well due to nausea and vomiting.? With her last surgery she was able to proceed with nonsteroidal anti-inflammatory and Tylenol postoperatively.? She states she did not tolerate the meloxicam very well.? We will attempt to use Celebrex postoperatively for this surgery. REVIEW OF SYSTEMS: Review Of Systems: Constitutional: Denies anorexia, anxiety, change in appetite, fever and weight change,hard of hearing, and vision problems. Cardiovasular: Reports irregular heartbeat, but denies chest pain, heart murmur and peripheral vascular disease. Respiratory: Denies asthma, cough, pneumonia, sleep apnea, shortness of breath, tuberculosis and wheezing. Gastrointestinal: Denies constipation, diarrhea, heartburn, nausea, bloody stools and vomiting, and difficulty swallowing. Genitourinary: Denies incontinence. Musculoskeletal: Reports gait disturbance and pain, but denies leg swelling, trouble walking and weakness and limp. Skin: Reports tattoo, but denies Raynaud's and history of shingles. Neurological: Denies ambulatory dysfunction, dizziness, numbness/tingling and tremor. Psychiatric: Denies anxiety, depression, insomnia, mental illness and stress. Hematologic/Lymphatic: Denies anemia, bleeding/bruising tendency and past transfusion. Allergy/Immunologic: Reports hay fever and sinusitis. Reviewed, no changes. PAST MEDICAL HISTORY: Advance Care Plan: Resuscitation, POA Effective Date: 10/12/2021 Resuscitation, LIVING WILL Effective Date: 10/12/2021 Past Medical History: Medical Problems: High Blood Pressure, Thyroid Disease, Acid Reflux Accidents: Fracture - (2010) LT ARM FX Surgical Hx: Discectomy - (2004) JUN & AUG - [facility] Gallbladder - (1991) ORIF LT Humerus - (12/16/2010) WILLA@[facility] 4 PINS, 3 SCREWS AND METAL PLATE Hysterectomy Hip Replacement RT - (05/21/2020) SAW @ [facility] Anesthesia Complications: None Assistive Devices: Glasses Reviewed, no changes. SOCIAL HISTORY: Social History: Marital: .Occupation: Retired.Work Status: Retired.Hand Dominance: Right-handed. Personal Habits:? Cigarette Use: Never.Smokeless Tobacco: Never Used Smokeless Tobacco.E-Cigarette Use: Never used.Alcohol: Occasionally.Drug Use: Denies Use.Enjoy Exercising: Exercises 1-3 X/Week. Reviewed, no changes. VITALS: Ht: 64 Wt: 200lb Wt k.720 BMI: 34.3 BP: 128/74 Pulse: 63 Resp: 18 T: 97.8 T: 36.6C Pain Level: 3 O2SatR: 98 ALLERGIES: Morphine - N&V Dilaudid - N&V Vicodin - N&V Percocet - N&V Ultram - N&V Narcotics Levaquin? MEDICATIONS: Levothyroxine Sodium 50 mcg 1 by mouth every day, Prilosec 40 mg 1 tab by mouth daily, Hydrochlorothiazide 25 mg one tab po once daily, Atenolol 100 mg one tab po bid, Amlodipine Besylate 5 mg 1 by mouth every day, Prilosec OTC 20 mg Daily PRE-OP EXAM:? General appearance:NORMAL? ? ? Other: Eyes: Conjunctivae and lids: NORMAL? Pupils: ERR Ears, Nose, Mouth, and Throat: NORMAL? Other: Inspection of lips, teeth and gums: NORMAL? ?Other: Neck: Examination of neck: no masses noted. Respiratory: Assessment of respiratory effort: NORMAL? ?Other: ?Auscultation of lungs: clear to auscultation no wheezes, rhonchi or rales. Cardiovascular:? Auscultation of heart: regular rate and rhythm, no murmurs, gallops or rubs. PHYSICAL EXAMINATION: Patient does walk with an antalgic gait.? Her left hip is without erythema or signs of infection.? She has tenderness to palpation over the left greater trochanteric region.? She complains of left groin pain with range of motion.? Range of motion: Flexion 70, internal rotation 5, external rotation 10.? Sensation intact to light touch. IMAGING STUDIES: Previous x-rays of the left hip reveal joint space narrowing, subchondral sclerosis, osteophyte formation consistent with severe stage IV bone on bone erosive osteoarthritis.? On the AP pelvis there does appear to be shortening of the left hip when compared to the right.? There is presence of previous right total hip arthroplasty with stable components. X-rays were obtained at [facility] on August 05, 2023 including 2 views lateral sitting and standing sacral views reveals degenerative changes of the lumbar spine with significant narrowing of disc height between L4 and L5.? There is loss of lumbar lordosis.? There is also anterior vertebral body osteophytes.? Calcifications and vascular structure.? No lytic or blastic lesions.? No acute finding for fracture. IMPRESSION: 1.? Severe left hip osteoarthritis 2.? Presence of right total hip arthroplasty 3.? Hypertension 4.? Gastroesophageal reflux disease 5.? Thyroid disease PLAN: Dr. Xavi Xiao did discuss and review with the patient all treatment options including surgical versus nonsurgical options.? Patient does wish to proceed with the above-stated procedure.? Potential risks, benefits, and complications of the procedure were discussed in detail including but not limited to , infection, nerve and blood vessel damage, persistent pain, numbness, tingling, paresthesias, blood clot, pulmonary embolism, and requirement for possible further surgery.? The patient expressed full understanding and has no further questions for the doctor.? Patient does agree to proceed with the above-stated procedure and has signed the surgery consent form. POST-OP MEDICATION PLAN: Pain Medications: Patient does not tolerate narcotics.? We will attempt extra strength Tylenol 500 mg 2 tablets 3 times daily.? We will also attempt to use Celebrex postoperatively as she did not tolerate the meloxicam very well. DVT Prophylaxis:? Aspirin 81 mg twice daily for 4 weeks postoperatively.? Denies past history of DVT or pulmonary embolism This dictation was created using voice recognition software. Phonetic and/or grammatical errors may exist. ___? I have re-examined the patient.? There are no clinical changes since date of exam. ___? See progress notes for changes. ___? Dictated on admission Date: ? ? ?Time: Signature:
[2023-08-17] VITALS (12 sets, daily range): BP systolic 127–177; BP diastolic 45–129; PULSE 60–72; RESP 16–18; TEMP 36.4–36.8; O2SAT 93–100; BMI 34.0
[2023-08-17] MEDS: Gabapentin 600 MG Tablet PO (07:00)
[2023-08-17] MEDS: Celecoxib 200 MG Capsule 400 MG PO (07:00)
[2023-08-17] MEDS: Acetaminophen 500 MG Tablet 1000 MG PO ×3 (07:01→21:23)
[2023-08-17] MEDS: Lactated Ringers 1,000 ML 999 ML IV ×2 (07:12→11:20)
[2023-08-17] MEDS: Magnesium 1 GM over 15 mins IV (07:13)
[2023-08-17 07:23] LABS: Bedside Glucose 105 mg/dL (74-106)
--- NOTE | 2023-08-17 09:11 | HIP_PTH ---
PATIENT: NEISHA MCNEAL LOC: MS3 U#:[id number] AGE/SX: 73/F ROOM: [facility] [id number] RE08/17/[address]: Dr. Xavi Xiao MD : 1950 BED: 1 DIS: 08/18/2023 SPEC #: [id number] RECD: 08/17/23 13:42 STATUS: MAYNOR BENNETT #: [id number] JOSE: 08/17/23 09:[address]: Xavi Xiao DEPT: SURGICAL PATHOLOGY RECD BY: Samir Huang ENTERED: 08/18/23 07:34 SP TYPE: TOTAL HIP OTHR DR: DO Dr. Dena Ruiz MD Tissues: Hip, NOS Procedures: Decalcification bone/plaque Surgery Specimen Level IV HEADER OPERATION: JESSICA, robotic assisted direct anterior total hip arthroplasty PRE-OP DIAGNOSIS: Left hip osteoarthritis TISSUE SUBMITTED: Left hip bone MICROSCOPIC DIAGNOSIS Bone and tissue of left hip, total hip resection: Severe degenerative joint disease. AM:crow 08/22/2023 MICROSCOPIC DESCRIPTION Slides are reviewed. GROSS DESCRIPTION Received is one container labeled with the patient's name and designated left hip bone. The specimen consists of a ramirez femoral head measuring 4.5 x 5.0 x 4.5 cm. Also present in the container is a detached piece of bone consistent with femoral neck measuring 4.0 x 5.0 x 1.2 cm. The articular surface displays prominent osteophyte formation, eburnation and bone erosion. Also present in the specimen container are multiple irregular fragments of bone reamings and pink-yellow soft tissue measuring in aggregate 5.5?x 5.5 x 1.5 cm. Cooling Tower Operator sections are submitted in two cassettes as follows: 1 - soft tissue, 2??bone after decalcification. / SJ:crow 08/18/2023 TC:5 CPT: 56825, 51688
[2023-08-17] MEDS: Cefazolin 2 GM in 0.9% Normal Saline (100mL Bag) 100 ML IV (09:20)
[2023-08-17] MEDS: dexAMETHasone 10 MG/ML Vial IV (09:30)
[2023-08-17] MEDS: TXA 1000mg in NS100 100ml (IVPB at Incision) 660 MG IV (09:30)
--- NOTE | 2023-08-17 10:23 | RAD_ITS ---
STUDY: X-RAY - PELVIS AND LEFT HIP REASON FOR EXAM: Female, 73 years old. PAIN TECHNIQUE: 1 views of the pelvis and hip. COMPARISON: None. FINDINGS: Intraoperative imaging provided for left hip replacement. RAD/Hip 1 view with Pelvis IMPRESSION: Intraoperative imaging provided for left hip replacement. Electronically Signed: Kvng Michael MD at 15:07 EDT ,
[2023-08-17] MEDS: TXA 1000mg in NS100 100ml (IVPB at Closure) 660 MG IV (10:34)
[2023-08-17] MEDS: JPS (Morphine 10mg/ml) OPERA.SITE (10:39)
--- NOTE | 2023-08-17 10:53 | OP.PCM_ITS ---
Report of Operation Date of Procedure: 08/17/23 Pre-Operative Diagnosis: Left hip primary osteoarthritis Post-Operative Diagnosis: Left hip primary osteoarthritis Surgery/Procedure Performed:: Left hip minimally invasive direct anterior robotic assisted total replacement Description of Surgical Findings:: Stable over the leg lengths. Stage IV osteoarthritis Surgeon: Xavi Xiao crude tester: Lenny Robins Type of Anesthesia: Spinal Anesthesiologist: Deonte Couglhin Special Medications: 2 g Ancef, 1 g TXA at incision, 1 g TXA closure, 10 mg Decadron, joint cocktail (5 mg Duramorph, 30 mL of 0.5% Ropivicaine, 1000 units of epinephrine, 30 mg of Toradol) Specimen's removed: Bony cuts Estimated Blood Loss (mL): 200 Fluids Replaced: 1600 ml Description of Procedure: Components used: 1. Insignia [place] femoral stem size 3 high offset 2. Patrick trident 2 acetabular shell size 50 mm 3. [place] X3 polyethylene D 4. Patrick Biolox delta 36 mm, -2.5 mm femoral head Brief history operative indications: 73 yo f who failed conservative measures for their hip osteoarthritis. X-rays were consistent with osteoarthritis including joint space narrowing, osteophyte formation and subchondral cysts. Total hip replacement was discussed with the patient with risks and benefits including but not limited to blood loss, DVTs, PEs, neurovascular damage, dislocation, general risks of anesthesia including loss of life. Patient demonstrated an understanding medical clearance is obtained the patient was consented for surgery. Procedure: On the date of procedure the patient's L hip was marked in the preoperative area. Patient was then taken back to the operating room where anesthesia assumed control of the C-spine and airway and administered anesthetic. Patient was transferred to the operating table and placed in the supine position. The hips were placed at the break of the bed and a sacral bump was placed. L The lower extremity was then prepped out in a sterile fashion using chlorhexidine while the surgeon scrubbed. The PA was vital in the positioning of the patient. Upon reentering the room the left lower extremity was draped in the standard orthopedic fashion and the incision was marked. A timeout was called and everyone agreed upon the side, the site, the procedure be performed, antibody given, and patient's identity. At this time pins were placed in the iliac crest making skin nicks and blunt dissection down to the iliac crest. After the pins were placed the pelvic array was placed. Following this our attention was directed to the surgical site and incision was made through skin, subcutaneous tissue, and fat down to fascia. The fascia was then incised and the TFL was retracted laterally. A retractor was placed on the lateral border of the femoral neck. Attention was directed to the inferior portion of the approach and all crossing vessels were identified and appropriately coagulated. A retractor was then placed on the medial portion of the femoral neck. The anterior capsule was then cleared of all soft tissue and then H shaped capsulotomy was made. The retractors were then placed inside the capsule. The femoral neck was identified and a cleanup cut was made. At this time a power corkscrew was used to remove the femoral head. Attention was then turned toward the acetabulum where the soft tissues were appropriately retracted and the acetabulum was registered using the [employer] robotic system. After registration the robotic arm was brought in and used to reamed the acetabulum to 50 mm. A 50 mm cup was then selected and impacted into place using the robotic arm at 40 degrees anteversion and 25 degrees abduction. Acetabular liner was impacted into place and locking mechanism was verified. After completing the acetabular cup position placement pins were removed and surgery proceeded to the femur. Attention was then turned to the femur. Soft tissue releases on the medial and lateral femoral neck were appropriately done, the leg was externally rotated and lateralized. A Rosario retractor was placed medially and proximally to the greater trochanter this allowed appropriate visualization and exposure of the femoral canal. Rongeour was then used to remove excess lateral bone. A canal finder and entry broach were used to open the proximal canal. Once we verified we were down the femoral canal we subsequently broached up to a size 3 femur. The appropriate neck was placed in the previously selected head was trialed with a -2.5 mm neck. Traction was pulled and the hip was reduced with internal rotation. Once it was appropriately reduced and stability was checked. There was minimal shuck, equal leg lengths and appropriate stability with hyperextension and external rotation as well as with 90? flexion and internal r otation. Fluoroscopy was then also used to verify the position of the components and leg lengths using the contralateral side for comparison. The trial components were then dislocated the proximal femur was again exposed and the components were removed from the wound. The final components were verified and opened. The wound was copiously irrigated out with normal saline. The acetabulum was checked for any residual debris. The final components were placed and impacted. Traction and internal rotation were again used to reduce the hip. After adequate reduction the hip remained stable with appropriate leg lengths. The final components were once again checked with live fluoroscopy and were found to be satisfactory. The wound was then copiously irrigated with normal saline once more, and hemostasis was obtained. Closure was then done using #1 Vicryl runner to close the fascia. A 2-0 vicryl interuppted sutures were used to close the subcutaneous skin. A 3-0 Monocryl and Steri-Strips were used for final skin closure. A Silverlon dressing was placed. Patient was awakened by anesthesia and transferred to the rroper. Patient was then transferred to the PACU for recovery. During the course of the procedure the physician lithograph printer (PE) played a vital role. Their intimate knowledge of my steps in the procedure aided in safe and expedient completion of the procedure. The PE played a vital rolls in positioning particularly in obtaining the appropriate positioning of the sacral bump. The PE was also vital in the retraction of soft tissues during the exposure and especially the femoral work as this is a vital part of the procedure to prevent complications and fractures. The PE was also vital and protecting soft tissues during times of bony cuts and reaming. He also played a vital role in closure with my direct supervision. The PE was also important during reduction and dislocation of the joint and trials intraoperatively. Postoperative plan: Patient will get 24 hours postop antibiotics. Patient will get in-house physical therapy and will be weight-bear as tolerated. Patient will follow up in office in 2 weeks for a wound check and x-rays. Aspirin 81 mg twice daily. Complications No intraoperative complications Admit VTE Documentation VTE Present on Admission: No VTE Mechan Device Prophylaxis: SCD's and Thigh High FITO Hose VTE Pharm Prophylaxis ordered?: Yes
--- NOTE | 2023-08-17 11:25 | RAD_ITS ---
STUDY: X-RAY - PELVIS AND LEFT HIP REASON FOR EXAM: Female, 73 years old. Post Op -- AP both hips on single avinash/lateral of op hip PACU TECHNIQUE: 2 views of the pelvis and hip. COMPARISON: Comparison is made with prior study May 21, 2020. FINDINGS: The patient is status post left total hip replacement. There is good alignment. Postoperative soft tissue changes. RAD/Hip Min 2 Views (Portable) IMPRESSION: Status post left total hip replacement. There is good alignment. Postoperative soft tissue changes. Electronically Signed: Kvng Michael MD at 12:52 EDT ,
--- NOTE | 2023-08-17 14:06 | PCM.PN.HOSP ---
Reason for Visit Reason for Visit: Left hip osteoarthritis Subjective Subjective Mrs. Hood is a 3-year-old female now who who presented to her [facility] for an elective minimally invasive left total hip arthroplasty on 08/17/[address] Xiao. She has a past medical history of hypothyroidism, GERD, and hypertension. We have been consulted postoperatively for medical management of chronic medical issues. Patient was evaluated postoperatively on the medical surgical floor. Objective Data Objective Data Vital Signs: Vital Signs Temp Pulse Resp BP Pulse Ox O2 Del Method O2 Flow Rate 97.9 F 64 18 150/64 H 97 Nasal Cannula 4 08/17/23 12:36 08/17/23 12:36 08/17/23 12:36 08/17/23 12:36 08/17/23 12:36 08/17/23 12:36 08/17/23 12:36 Oxygen Flow Rate (L/min) 4 Oxygen Delivery Method Nasal Cannula Weight: 89.811 kg Body Mass Index (BMI) 34.0 Intake & Output: Intake and Output for Last 24 Hours 08/15/23 08/16/23 08/17/23 23:59 23:59 23:59 Intake Total 2432 / 2432 Output Total 200 / 200 Balance 2232 / 2232 Lab / Micro Data 07/26/23 07:28 07/26/23 07:28 Labs: Laboratory Results - last 24 hr 08/17/23 07:00: POC Glucose 105 Micro: Microbiology 07/26/23 07:28 Swab (Method) Nasal Screen MRSA/MSSA - Final Radiography Diagnostic Testing: Radiology Impression Hip X-Ray 08/17/23 11:25 IMPRESSION: Status post left total hip replacement. There is good alignment. Postoperative soft tissue changes. Electronically Signed: Kvng Michael MD at 12:52 EDT , Physical Exam Const alert, oriented x3, no apparent distress, healthy appearing and well nourished Constitutional Narrative: Older, obese, white female, sitting in the chair at the bedside, friends are visiting, appears comfortable nontoxic HEENT head/scalp atraumatic, moist oral mucous membranes and oropharynx normal Head and Scalp: normocephalic Resp normal respiratory effort, no retractions, no use of accessory muscles and clear to auscultation bilaterally Auscultation: Negative for rales, rhonchi or wheezes Cardio regular rate, regular rhythm, S1 normal heart sound, S2 normal heart sound, no murmurs, no rub, no gallops and no clicks GI normal to inspection, nondistended, normoactive bowel sounds, soft to palpation and non-tender Extremity no clubbing, cyanosis or edema Extremity Narrative: Left lower extremity with polar ice in place, bilateral lower extremities with IFTO hose in place Neuro oriented x3 and moves all extremities Neuro Narrative: No focal deficits Speech: speech normal Psych affect normal Psych Narrative: Extremely pleasant Assessment & Plan Assessment/Plan (1) Osteoarthritis of left hip: PLAN: Plan Left hip osteoarthritis -Postop day 0 minimally invasive left total hip arthroplasty -Pain management per primary service -Recommend bowel regimen while on narcotics -PT/OT consultation per primary service -Weightbearing as tolerated -Aspirin twice daily recommended by orthopedic surgery for 4 weeks postoperatively -Follow-up in 2 weeks with Ortho for wound check and x-rays -A.m. CBC and BMP are pending Hypertension -Continue home amlodipine -Continue home atenolol -Continue home hydrochlorothiazide GERD -Continue home PPI Hypothyroidism -Continue home levothyroxine DVT prophylaxis -aspirin 81 twice daily per primary service Charges/Coding Visit Charges Inpatient E&M: 47321 Subs Hosp L2
[2023-08-17] MEDS: Cefazolin 1 GM/50 ML BAG IV (16:53)
[2023-08-17] MEDS: Ondansetron 4 MG/2 ML Vial IV (17:01)
[2023-08-17] MEDS: 0.9% Saline Lock 10 ML Syringe IV (17:01)
[2023-08-17] MEDS: Senna/Docusate Sodium 1 Tablet 2 TABLET PO (21:22)
[2023-08-17] MEDS: Atenolol 100 MG Tablet PO (21:22)
[2023-08-17] MEDS: Aspirin 81 MG TAB.CHEW PO (21:23)
[2023-08-18 00:31] VITALS: BP 146/67; PULSE 63; RESP 18; TEMP 36.3; O2SAT 96
[2023-08-18] MEDS: Cefazolin 1 GM/50 ML BAG IV (00:37)
[2023-08-18 04:44] VITALS: BP 137/67; PULSE 63; RESP 16; TEMP 36.5; O2SAT 97
[2023-08-18] MEDS: Acetaminophen 500 MG Tablet 1000 MG PO (05:02)
[2023-08-18] MEDS: Levothyroxine 50 MCG Tablet PO (05:03)
[2023-08-18 06:33] LABS: Hematocrit 36.4 % (37-47); Hemoglobin 11.6 g/dL (12.0-15.0); Mean Corp Hgb Conc 31.9 g/dL (32-36); Mean Corpuscular Hgb 29.7 pg (27.0-32.0); Mean Corpuscular Volume 93.3 fL (81-99); Mean Platelet Vol. 9.2 fl (6.2-12.0); Platelet Count 246 K/mm3 (150-450); RBC Distribution Width CV 13.2 % (11.6-14.6); White Blood Count 12.9 K/mm3 (4.4-11.0)
[2023-08-18 07:19] LABS: Anion Gap 6 (5-15); BUN 11 mg/dL (7-18); BUN/Creat Ratio 16.8 RATIO (10-20); Calcium,Total 8.7 mg/dL (8.5-10.1); Chloride 106 mmol/L (98-107); Creatinine, Serum 0.65 mg/dL (0.55-1.02); EST Glomerular Filtration Rate 94 mL/min (>60); Est Glom Filt Rate - Afr Amer 113 mL/min (>60); Estimated Creatinine Clearance 41.97 ml/min; Glucose 108 mg/dL (74-106); Potassium 3.5 mmol/L (3.5-5.1); Sodium Level 139 mmol/L (136-145)
[2023-08-18 07:36] VITALS: BP 163/43; PULSE 57; RESP 16; TEMP 36.4; O2SAT 96
[2023-08-18] MEDS: Aspirin 81 MG TAB.CHEW PO (08:02)
--- NOTE | 2023-08-18 09:40 | PCM.PN.ORT ---
Subjective Subjective The patient was sitting in bed side chair with present upon examination. Patient denies any chest pain, shortness of breath, dizziness, lightheadedness, nausea or vomiting, or calf pain. Pain is controlled on medications. No adverse overnight events. Patient states her pain has been very well controlled. She is pleased with outcome of surgery. She has no complaints this morning. Denies any chest pain or shortness of breath. She has worked with physical therapy and states she did well. She is wishing to go home today. Objective Data Objective Data Vital Signs: Vital Signs Temp Pulse Resp BP Pulse Ox O2 Del Method O2 Flow Rate 97.5 F L 57 L 16 163/43 H 96 Room Air 4 08/18/23 07:36 08/18/23 07:36 08/18/23 07:36 08/18/23 07:36 08/18/23 07:36 08/18/23 07:36 08/17/23 12:36 Oxygen Flow Rate (L/min) 4 Oxygen Delivery Method Room Air Weight: 89.811 kg Body Mass Index (BMI) 34.0 Intake & Output: Intake and Output for Last 24 Hours 08/16/23 08/17/23 08/18/23 23:59 23:59 23:59 Intake Total 2602 / 2602 410 / 410 Output Total 200 / 200 Balance 2402 / 2402 410 / 410 Lab / Micro Data 08/18/23 06:20 08/18/23 06:20 Labs: Laboratory Results - last 24 hr 08/18/23 06:20: WBC 12.9 H, RBC 3.90 L, Hgb 11.6 L, Hct 36.4 L, MCV 93.3, MCH 29.7, MCHC 31.9 L, RDW Std Deviation 45.0 H, RDW Coeff of Selena 13.2, Plt Count 246, MPV 9.2, Sodium 139, Potassium 3.5, Chloride 106, Carbon Dioxide 27.0, Anion Gap 6, BUN 11, Creatinine 0.65, Estim Creat Clear Calc 41.97, Est GFR (MDRD) Af Amer 113, Est GFR (MDRD) Non-Af 94, BUN/Creatinine Ratio 16.8, Glucose 108 H, Calcium 8.7 Micro: Microbiology 07/26/23 07:28 Swab (Method) Nasal Screen MRSA/MSSA - Final Radiography Diagnostic Testing: Radiology Impression Hip/Pelvis X-Ray 08/17/23 10:23 IMPRESSION: Intraoperative imaging provided for left hip replacement. Electronically Signed: Kvng Michael MD at 15:07 EDT , Hip X-Ray 08/17/23 11:25 IMPRESSION: Status post left total hip replacement. There is good alignment. Postoperative soft tissue changes. Electronically Signed: Kvng Michael MD at 12:52 EDT , Physical Exam Narrative Vital signs stable and afebrile. Slight elevation in blood pressure on 1 reading, patient denies chest pain or shortness of breath. Left hip is soft and supple SCDs and FITO hose are in place bilaterally Patient is able to plantarflex and dorsiflex actively. Sensation is intact to light touch to saphenous, sural, superficial and deep peroneal, and tibial distribution. Dressing is clean dry and intact. Negative Homans bilaterally, negative signs and symptoms of DVT. Assessment & Plan Assessment/Plan (1) S/P total left hip arthroplasty: PLAN: 1. S/P direct anterior left total hip arthroplasty POD #1 2. Continue Pain Medications: Tylenol and Celebrex primarily. Patient will be given a very small amount of tramadol upon discharge just in case she needs additional pain control. If she runs out she will contact our office for refill. If the Tylenol and Celebrex control her pain she will continue without any narcotics. 3. DVT Prophylaxis: Take 81 mg aspirin twice daily for 4 weeks postoperatively for DVT prophylaxis. Patient denies past history of DVT or pulmonary embolism 4. PT/OT: Weightbearing as tolerated with walker 5. Lab work has been reviewed in chart. 6. Encouraged Incentive Spirometry 7. Disposition: Plan will be for probable discharge home this afternoon as long as patient tolerates therapy, pain is well controlled and medically stable. I did discuss with the patient placing a 4 x 4 dressing on the proximal incision with the skin pannus. She will do this for 4 weeks postoperatively once the dressing has been removed. Patient would like her medications E scribed to [facility]'s pharmacy. She will follow-up per postoperative instructions. Upon discharge patient will contact her office with any concerns or questions. I have reviewed the [place] Automated Rx Reporting System (OARRS) report for this patient for refill pattern and other prescriber involvement as part of the appropriate surveillance for the provision of acute and chronic controlled medications. The report was requested and reviewed on the date of this entry and was considered in the prescribing process. This dictation was created using voice recognition software. Phonetic and/or grammatical errors may exist.
--- NOTE | 2023-08-18 09:45 | PCM.DC ---
Discharge Instructions Diet Discharge Diet: No restrictions Activity Discharge Activity: May Not Drive (Must be able to walk 100 feet with the use of a cane and off all narcotics) May shower in (days): 1 (only if incision is dry and without drainage. Do NOT soak/submerge in tub/pool/travis/stream/hot tub.)) Ice area for (Minutes): 20 (Every 1-2 hours while awake[address] place barrier between ice and skin.) Weight Bearing Status: Weight bearing as tolerated Keep extremity elevated above heart level: Operative Extremity Additional Activity Instructions:: Follow [facility] Post-op Instructions. Once postoperative dressing has been removed only use gentle soap and water over the incision. Do not use any ointments, Neosporin, salves, alcohol pads over the incision for 6 weeks postoperatively. Do not submerge underwater for 6 weeks postoperatively. Wear elastic stockings for 2 weeks. Do NOT use alcohol with narcotic pain medication. Do NOT make important decisions while taking narcotic medication. If you have problems with taking your medication (rash, itching, nausea, etc.) call the office at once. Dressing / Incision Call your doctor if your incision/area has: Continuous Slow Oozing, Sudden Increased Bleeding, Increased Pain/ Swelling, Increased Redness and Foul Smelling Discharge Call your doctor if you observe: Fever of 101 or Higher, Shortness of breath, Chest pain, Calf discomfort and Uncontrolled pain Remove Dressing in: 4 days (Okay to remove dressing on August 22, 2023) Additional Dressing/Incision Instructions:: Follow [facility] Post-op Instructions. Once postoperative dressing has been removed, only use gentle soap and water over the incision. Do not use any ointments, Neosporin, salves, alcohol pads over the incision for 6 weeks postoperatively. Do not submerge underwater for 6 weeks postoperatively. Continue with FITO hose/elastic stockings for 2 weeks postoperatively. May remove at nighttime but needs to be placed back on the leg during the day. Do NOT use alcohol with narcotic pain medication. Do NOT make important decisions while taking narcotic medication. If you have problems with taking your medication (rash, itching, nausea, etc.) call the office at once. Follow Up Care Test Results: Test results from this visit will be discussed in further detail at your follow-up appointment, if applicable. Discharge Plan Admission Admit Date/Time: 08/17/23 10:40 Attending Provider: Xavi Xiao Primary Care Provider: Jessica [facility] Consulting Providers: Dena Dobson Discharge Orders/Prescriptions Prescriptions: New acetaminophen 500 mg Tablet 1,000 mg PO Q8 Qty: 0 0RF Rx Instructions: Do not take more than 3000 mg Tylenol in a 24-hour period. aspirin 81 mg Tablet,Chewable 81 mg PO BIDCM Qty: 0 0RF Rx Instructions: Take 81 mg aspirin twice daily for 4 weeks postoperatively for DVT prophylaxis. celecoxib 200 mg Capsule 200 mg PO BID 30 Days Qty: 60 0RF sennosides-docusate sodium [Stool Softener-Stimulant Laxat] 8.6-50 mg Tablet 2 tab PO BID 3 Days Qty: 12 0RF Rx Instructions: Take until first bowel movement, then as needed tramadol 50 mg Tablet 50 mg PO Q6H PRN PRN (Reason: as needed pain) Qty: 6 0RF Continued omeprazole 40 mg capsule,delayed release(DR/EC) 40 mg PO DAILY hydrochlorothiazide 25 mg tablet 25 mg PO DAILY levothyroxine [Synthroid] 50 mcg tablet 50 mcg PO DAILY atenolol 50 MG tablet 100 mg PO BID amlodipine 5 MG tablet 5 mg PO DAILY Referrals / Follow Up: Physical,Therapy [Other] - 08/22/23 7:30 am Jessica Corona DO [Primary Care Provider] - Lenny Robins PA-C [Med Staff - [facility]] - 09/01/23 4:00 pm Disposition Disposition (needs filled in before D/C Order can be placed): Home, Self Care
--- NOTE | 2023-08-18 10:12 | CASEMGMT ---
MATTHEW LAWS Face to Face with patient for initial transition planning/care coordination assessment. RN VETO introduced self and role at [facility]. Patient sitting up in chair with in room, alert and oriented. Patient willing to participate in assessment and is able to answer all questions appropriately. Care providers, pharmacy, and demographics verified. Patient wishes to discharge home,she has outpt therapy already set up for Oct 2 at [facility]. Patient states she has no further needs or concerns at this time. CM to follow for discharge planning needs that may arise. PCP:Chloe Specialists: daniel Xiao; jeanne Gonzalez Preferred Pharmacy:[facility] Insurance:[employer], [employer] Prescription Benefit: yes LNOK:Travis Tobar, ; Shawnee Nolen dtr Living Arrangements:Pt lives with in a story and a half home with 2 steps to enter with a grab bar. Pt reports she is typically I in ADL's and her is able to assist post surgery. Pt denies concerns at home. Pt has bed and bath on first floor. Transportation: Pt drives self and denies concerns with transportation. Pt will transport pt until pt can drive again. 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
[2023-08-18] MEDS: Atenolol 100 MG Tablet PO (10:40)
[2023-08-18] MEDS: Senna/Docusate Sodium 1 Tablet 2 TABLET PO (10:41)
[2023-08-18] MEDS: hydroCHLOROthiazide 25 MG Tablet PO (10:41)
[2023-08-18] MEDS: amLODIPine 5 MG Tablet PO (10:42)
[2023-08-18] MEDS: Famotidine 20 MG Tablet PO (10:42)
--- NOTE | 2023-08-18 10:49 | PCM.HOSP.N ---
Hospitalist Note Patient evaluated at bedside, patient being discharged today. She is doing well and has no acute complaints, no further acute medical management necessary, okay to DC from medical perspective
[2023-08-18 10:51] VITALS: PULSE 68
== END 2023-08-18 11:20 | disposition home or self-care (01) ==
LOC: SDC 12:16 → MS3 12:16
PROVIDERS: Anesthesiology; Admitting Provider Specialist; PCP Internal Medicine; Referring Provider Specialist; Visit Provider Specialist
PROC: 8E0Y0CZ Robotic Assisted Procedure of Lower Extremity, Open Approach (ICD-10-PCS; CPT 27130; principal; 2023-08-17 08:30)
DX: M16.12 Unilateral primary osteoarthritis, left hip (principal); M25.562 Pain in left knee; E07.9 Disorder of thyroid, unspecified; M25.561 Pain in right knee; I10 Essential (primary) hypertension; K21.9 Gastro-esophageal reflux disease without esophagitis; Z79.899 Other long term (current) drug therapy; Z79.890 Hormone replacement therapy; E78.00 Pure hypercholesterolemia, unspecified; E66.9 Obesity, unspecified; Z68.34 Body mass index [BMI] 34.0-34.9, adult
CPT/HCPCS: 27130; 01214; S2900; 36415; 73501; 73502; 73700; 76000; 80048; 82040; 82962; 83735; 84443; 85025; 85027; 87081; 88305; 88311; 93005; 94668; 96365; 96366; 96375; 97110; 97162; 97166; 97530; 99221; 99252; C1776; J7120; A4216; G0378; G0463; J2405; J3475

== ENCOUNTER → 2023-10-18 | Outpatient (CLI) | payer MEDICARE, OTHER, SELFPAY ==
--- NOTE | 2023-10-18 08:13 | BI_ITS ---
MAMMOGRAPHY - BILATERAL SCREENING REASON FOR EXAM: Female, 73 years old. Routine annual screening examination. PERTINENT HISTORY: Sisters with breast cancer. Aunt with breast cancer. TECHNIQUE: Digital bilateral breast rocky (3D mammographic acquisition) in the CC and MLO projections. 2-D mediolateral oblique (MLO) and craniocaudad (CC) views of both breasts were obtained. CAD: Full Field Digital Mammography with Computer Added Detection was performed. COMPARISON: Comparison is made with prior study dated September 07, 2022 and August 25, 2021. FINDINGS: Breast Composition: There are scattered areas of fibroglandular density. There are no dominant masses or suspicious calcifications. No other significant abnormalities are identified. There has been no significant change since the prior study. BI/SCRN MAMM (CAD)W/ROCKY BILAT IMPRESSION: Stable bilateral screening mammogram. Yearly follow-up mammogram recommended. (A) ASSESSMENT CATEGORY: BIRADS Category 1: Negative. A letter regarding these results will be sent to the patient by the facility within 30 days. Approximately 10% of breast cancers are not detected by mammography. A normal mammogram should not delay biopsy of a clinically suspicious abnormality. [id number] Electronically Signed: Kvng Michael MD at 14:23 EST ,
== END | disposition home or self-care (01) ==
LOC: OPBD 08:11
PROVIDERS: PCP Internal Medicine; Referring Provider Internal Medicine; Visit Provider Internal Medicine
DX: Z12.31 Encounter for screening mammogram for malignant neoplasm of breast (principal); Z78.0 Asymptomatic menopausal state; Z80.3 Family history of malignant neoplasm of breast
CPT/HCPCS: 77063; 77067

== ENCOUNTER → 2023-10-20 | Outpatient (CLI) | payer MEDICARE, OTHER, SELFPAY ==
--- NOTE | 2023-10-20 13:30 | ECHOD_ITS ---
Reason For Study: NON-RHEUMATIC AV DISORDERS Procedure This was a 2D Doppler, Color Flow transthoracic echocardiogram. Exam performed in department. Left Ventricle Normal LV size. Left ventricular systolic function is normal. The estimated ejection fraction is 60 %. Stage 1 diastolic dysfunction. No regional wall motion abnormalities noted. Right Ventricle Normal RV size. Normal systolic function. Atria Normal left atrium. Normal right atrium. Mitral Valve Normal mitral valve. Tricuspid Valve Normal tricuspid valve. Mild tricuspid valve insufficiency. Pulmonary artery systolic pressure is 23 mmHg. Aortic Valve Normal aortic valve. Pulmonic Valve Normal pulmonic valve. Great Vessels Normal aortic root. The pulmonary artery is normal size. Normal inferior vena cava. Pericardium/Pleural No pericardial effusion. MMode/2D Measurements & Calculations LVIDd: 4.9 cm IVSd: 1.1 cm Ao root diam: 3.3 cm LVIDs: 3.5 cm LVPWd: 1.1 cm RVDd: 2.9 cm FS: 29.4 % LAV(MOD-bp): 56.7 ml LVAd ap4: 26.8 cm2 LVAd ap2: 20.0 cm2 LAV(MOD-bp) Indexed: 29.1 ml/m2 LVLd ap4: 8.0 cm LVLd ap2: 7.6 cm LAV(MOD-sp2): 62.4 ml EDV(MOD-sp4): 79.3 ml EDV(MOD-sp2): 49.3 ml LAV(MOD-sp4): 50.6 ml EDV(sp4-el): 76.0 ml EDV(sp2-el): 44.9 ml LVAs ap4: 14.9 cm2 LVAs ap2: 11.8 cm2 LVLs ap4: 5.9 cm LVLs ap2: 5.8 cm ESV(MOD-sp4): 36.4 ml ESV(MOD-sp2): 22.9 ml ESV(sp4-el): 32.2 ml ESV(sp2-el): 20.5 ml EF(MOD-sp4): 54.1 % EF(MOD-sp2): 53.6 % EF(sp4-el): 57.7 % SV(MOD-sp4): 42.9 ml SV(MOD-sp2): 26.4 ml SV(sp4-el): 43.8 ml LA dimension(2D): 4.1 cm LA A4 area: 18.1 cm2 RA A4 area: 13.6 cm2 TAPSE: 2.6 cm Time Measurements MV dec time: 0.28 sec Doppler Measurements & Calculations MV E max navarro: 70.7 cm/sec Lat Peak E' Navarro: 8.4 cm/sec Med Peak E' Navarro: 9.4 cm/sec MV A max navarro: 86.2 cm/sec E/E' lat: 8.4 E/E' med: 7.5 MV E/A: 0.82 MV V2 max: 96.4 cm/sec MV P1/2t max navarro: 80.3 cm/sec Ao V2 max: 238.0 cm/sec MV max P.7 mmHg MV P1/2t: 93.2 msec Ao max P.7 mmHg MV V2 mean: 54.5 cm/sec MV dec slope: 252.5 cm/sec2 Ao V2 mean: 165.5 cm/sec MV mean P.4 mmHg Ao mean P.7 mmHg MV V2 VTI: 30.3 cm MVA(P1/2t): 2.4 cm2 Ao V2 VTI: 55.5 cm AV (velocity ratio): 0.48 AI max navarro: 415.3 cm/sec LV V1 max: 109.6 cm/sec PA V2 max: 95.4 cm/sec AI max P.0 mmHg LV V1 max P.8 mmHg PA V2 mean: 65.1 cm/sec AI dec slope: 280.3 cm/sec2 LV V1 mean P.8 mmHg AI P1/2t: 434.0 msec LV V1 mean: 78.2 cm/sec LV V1 VTI: 26.7 cm TR max navarro: 224.9 cm/sec TR max P.3 mmHg ECHO/Echo Complete Interpretation Summary Normal LV size. Left ventricular systolic function is normal. The estimated ejection fraction is 60 %. Stage 1 diastolic dysfunction. Structurally normal valves. Ordering Physician: Jessica Corona Referring Physician: Jessica Corona Performed By: Bertha Gurrola, GIN, RVT
== END | disposition home or self-care (01) ==
LOC: CVS 13:28
PROVIDERS: PCP Internal Medicine; Referring Provider Internal Medicine; Visit Provider Internal Medicine
DX: I35.8 Other nonrheumatic aortic valve disorders (principal)
CPT/HCPCS: 93306

== ENCOUNTER 2024-03-12 06:55 | Outpatient (RCR) | payer MEDICARE, OTHER, SELFPAY ==
--- NOTE | 2024-03-12 07:47 | HP.PTEVAL_ITS ---
Patient's Visit Information Visit Information Visit Information: NEISHA MCNEAL is a 74 year old F referred to Physical Therapy by Dr. Jessica Corona DO with a diagnosis of Right Shoulder Pain. Date of Evaluation: 03/12/24 Physical Therapist: Charlette Dallas DPT Visit Plan Frequency: 1x/Week Duration: 1 Week Plan: 1x visit for HEP- Right shoulder impingement-95% improvement s/p injection- pt requested HEP HEP Given IE: Posture, [place] Stretch, Mid Row, LAE, Bilateral ER Subjective Subjective: Patient reports that she has had right shoulder pain for a couple of weeks- Tendonitis- insidious onset. Right hand dominate. She went to see the MD and she gave her a steroid injection last week and its better- she feels that its 90-95% better. The temperature change bothers her it as well. The pain is located in the anterior shoulder- the pain does not radiate. She did have some N/T in all of the fingers that came and went but was very infrequent when she was sitting but if she moved it went away- prior to the steriod but has not noticed it since then. Worst: 8/10 prior to the steriod injection rachelle at night. Agg: change in weather, sleep at night. Eases: rest, heat Best: 0/10. She has arthritis so she has other places but she is painfree in the shoulder. She does not have neck pain, BOWLES, blurred vision or dizziness. No decrease in construction grip strength or finger dexterity. She is normally pretty active she was able to push through with Aleve. The night is when it bothered her mostly at night when she was going to sleep. She is a side sleeper on both sides. Its not waking her up now. She is not doing any sort of shoulder exercises- she has done PT in the past. She has shoulder surgery on the left but not the right. Recent x- rays but no MRI. She was taking a steroid does pack but she is no longer taking it because it was bothering her stomach. PMHx/Meds: see list in chart-no pacemaker. 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 Rehabilitation Potential: Good Anticipated Interventions Patient/Client Instruction: Educate patient on: Benefits of Fitness Program Therapeutic Exercise to Include: Strength training, Endurance training, Body mechanics, Postural training, Neuromotor development, Passive ROM, Active ROM, Dynamic Lumbar Stabilization and Scapular Strength/Stabilization For the Purpose of:: To improve muscle performance and motor function Text: Thank you for the opportunity to evaluate your patient. For Medicare and Medicare HMO plans, please review the plan of care and approve it. It will need to be FAXED BACK to us at [phone] for Medicare purposes. For Medicare only, by signing this I certify the plan of care. Please let me know if there are questions or concerns regarding this plan of care. Physician Signature: Date:
--- NOTE | 2024-04-10 11:12 | HP.PTDCSUM ---
Discharge Summary D/C summary: It has been my pleasure to treat NEISHA MCNEAL referred by Dr. Jessica Corona DO, with the diagnosis of Right Shoulder Pain for a total of 1 visit(s). Discharge Date: 03/12/24 Please see the following information for a summary of their discharge status. Goals Goal 1:: Patient will be indep with HEP Plan Plan: 1x visit for HEP- Right shoulder impingement-95% improvement s/p injection- pt requested HEP HEP Given IE: Posture, [place] Stretch, Mid Row, LAE, Bilateral ER D/C Information Discharge Comments: Patient will continue with HEP and call with questions or concerns. d/c sentence: If there are questions or concerns regarding this patient's physical therapy, please feel free to call me at [phone]. Thank you for the referral of this patient. Sincerely, DEBORAH PrettyT
== END 2024-03-12 19:00 | disposition home or self-care (01) ==
LOC: PT 06:55
PROVIDERS: PCP Internal Medicine; Referring Provider Internal Medicine; Visit Provider Internal Medicine
DX: M25.511 Pain in right shoulder (principal)
CPT/HCPCS: 97110; 97162

== ENCOUNTER → 2024-10-19 | Outpatient (CLI) | payer MEDICARE, OTHER, SELFPAY ==
--- NOTE | 2024-10-19 07:24 | BI_ITS ---
MAMMOGRAPHY - BILATERAL SCREENING REASON FOR EXAM: Female, 74 years old. Routine annual screening examination. PERTINENT HISTORY: Sisters with breast cancer. Aunt with breast cancer. TECHNIQUE: Digital bilateral breast rocky (3D mammographic acquisition) in the CC and MLO projections. 2-D mediolateral oblique (MLO) and craniocaudad (CC) views of both breasts were obtained. CAD: Full Field Digital Mammography with Computer Added Detection was performed. COMPARISON: Comparison is made with prior study dated October 18, 2023 and September 07, 2022. FINDINGS: Breast Composition: The breasts are almost entirely fatty. There are no dominant masses or suspicious calcifications. No other significant abnormalities are identified. There has been no significant change since the prior study. BI/SCRN MAMM (CAD)W/ROCKY BILAT IMPRESSION: Stable bilateral screening mammogram. Yearly follow-up mammogram recommended. (A) ASSESSMENT CATEGORY: BIRADS Category 1: Negative. A letter regarding these results will be sent to the patient by the facility within 30 days. Approximately 10% of breast cancers are not detected by mammography. A normal mammogram should not delay biopsy of a clinically suspicious abnormality. [id number] Electronically Signed: Kvng Michael MD at 8:19 EST ,
== END | disposition home or self-care (01) ==
PROVIDERS: PCP Internal Medicine; Referring Provider Internal Medicine; Visit Provider Internal Medicine
DX: Z12.31 Encounter for screening mammogram for malignant neoplasm of breast (principal); Z80.3 Family history of malignant neoplasm of breast
CPT/HCPCS: 77063; 77067

== ENCOUNTER → 2024-11-01 | Outpatient (CLI) | payer MEDICARE, OTHER, SELFPAY ==
[2024-11-01 07:07] LABS: Mucous, Urine 0 SEEN /hpf (<or=2+); Red Blood Cells-Urine 0 SEEN /hpf (0-5)
[2024-11-01 10:18] LABS: Color, Urine Yellow (Yellow); Glucose, Dipstick Normal (Normal); Ketone-Dipstick Negative (Negative); Leukocyte Esterase-Dipstick 500 /ul (Negative); Nitrite-Dipstick Negative (Negative); Occult Blood-Urine Negative /ul (Negative); Protein-Dipstick Negative (Negative); Urine Bilirubin Dipstick Negative (Negative); Urine Clarity Cloudy (Clear); Urine Urobilinogen Normal (Normal)
[2024-11-01 10:20] LABS: Absolute Lymphocyte Count 1.45 X10^3/uL (0.83-4.51); Absolute Neutrophil Count 4.1 X10^3/uL (2.0-7.7); Basophil# 0.03 X10^3/uL; Basophil% 0.5 % (0-1); Eosinophil# 0.38 X10^3/uL; Eosinophils% 5.9 % (0-5); Hematocrit 41.9 % (37-47); Lymphocyte # 1.45 X10^3/ul (0.83-4.51); Lymphocyte % 22.6 % (19-41); Mean Corpuscular Hgb 28.1 pg (27.0-32.0); Mean Corpuscular Volume 90.7 fL (81-99); Mean Platelet Vol. 10.4 fl (6.2-12.0); Monocyte# 0.45 X10^3/uL; NRBC Flagged by Analyzer 0 % (0-5); Neutrophil # 4.08 X10^3/uL (2.7-7.7); Neutrophil % 63.5 % (47-70); Platelet Count 263 K/mm3 (150-450); RBC Distribution Width CV 13.4 % (11.6-14.6); RBC Distribution Width SD 44.8 fl (35.1-43.9); Red Blood Count 4.62 M/mm3 (4.2-5.4); White Blood Count 6.4 K/mm3 (4.4-11.0)
[2024-11-01 10:30] LABS: Bacteria 3+ /hpf (None Seen); Squamous Epithelial Cells - UA 5-10 SEEN /hpf (5-10); White Blood Cells 5-10 SEEN /hpf (0-5)
[2024-11-01 10:45] LABS: Microalbumin,Random Urine 28.4 mg/L (NO RANGE EST.); Microalbumin:Creatinine Ratio 19.7 mg/g CRE (<30 mg/g CRE)
[2024-11-01 11:14] LABS: Vitamin D,25 Hydroxy 20.7 ng/mL
[2024-11-01 11:19] LABS: ALB/GLOB Ratio 0.8 RATIO (0.9-2.4); AST(SGOT) 14 U/L (15-37); Alanine Aminotransfer ALT/SGPT 22 U/L (13-56); Albumin, Serum 3.4 g/dL (3.2-5.0); Alkaline Phosphatase 55 U/L (45-117); Anion Gap 7 (5-15); BUN 13 mg/dL (7-18); Calcium,Total 9.4 mg/dL (8.5-10.1); Chloride 105 mmol/L (98-107); Cholesterol 270 mg/dL (200); Creatinine, Serum 0.69 mg/dL (0.55-1.02); EST Glomerular Filtration Rate 88 mL/min (>60); Est Glom Filt Rate - Afr Amer 107 mL/min (>60); Globulin 4.2 g/dL (2.2-4.2); Glucose 96 mg/dL (74-106); High Density Lipoprotein 54 mg/dL; Potassium 3.6 mmol/L (3.5-5.1); Protein, Total 7.6 g/dL (6.4-8.2); Sodium Level 138 mmol/L (136-145); Triglycerides 185 mg/dL; Very Low Density Lipoprotein 37 mg/dL (5-40)
== END | disposition home or self-care (01) ==
PROVIDERS: PCP Internal Medicine; Referring Provider Internal Medicine; Visit Provider Internal Medicine
DX: E55.9 Vitamin D deficiency, unspecified (principal); E03.9 Hypothyroidism, unspecified; R73.09 Other abnormal glucose
CPT/HCPCS: 36415; 80053; 80061; 81001; 82043; 82306; 82570; 84443; 85025

== ENCOUNTER → 2025-06-03 | Outpatient (CLI) | payer MEDICARE, OTHER, SELFPAY ==
[2025-06-03 07:09] LABS: Mucous, Urine 0 SEEN /hpf (<or=2+); Red Blood Cells-Urine 0 SEEN /hpf (0-5)
[2025-06-03 10:13] LABS: Color, Urine Yellow (Yellow); Glucose, Dipstick Normal (Normal); Ketone-Dipstick Negative (Negative); Leukocyte Esterase-Dipstick Negative /ul (Negative); Nitrite-Dipstick Negative (Negative); Occult Blood-Urine Negative /ul (Negative); Protein-Dipstick 15 mg/dl (Negative); Specific Gravity, Urine 1.005 (1.002-1.030); Urine Bilirubin Dipstick Negative (Negative)
[2025-06-03 10:21] LABS: Squamous Epithelial Cells - UA 5-10 SEEN /hpf (5-10)
[2025-06-03 11:12] LABS: AST(SGOT) 18 U/L (<=31); Alanine Aminotransfer ALT/SGPT 14 U/L (<=34); Albumin, Serum 3.9 g/dL (3.4-4.8); Alkaline Phosphatase 51 U/L (35-104); Anion Gap 11 (5-15); BUN 11 mg/dL (4-19); BUN/Creat Ratio 18.4 RATIO (10-20); Calcium,Total 9.5 mg/dL (7.6-11.0); Carbon Dioxide 24.6 mmol/L (21.0-32.0); Chloride 105 mmol/L (98-108); Cholesterol 256 mg/dL (<=200); Globulin 3.0 g/dL (2.2-4.2); Glucose 105 mg/dL (70-99); Low Density Lipoprotein Calc. 167 mg/dL; Potassium 3.8 mmol/L (3.3-5.1); Triglycerides 207 mg/dL; Very Low Density Lipoprotein 41 mg/dL (5-40); Vitamin D,25 Hydroxy 20.4 ng/mL (30-100); cholesterol:hdl ratio screen 5.33
[2025-06-03 11:16] LABS: Creatinine, Urine (random) 93.40 mg/dL (28.00-217.00)
[2025-06-03 11:18] LABS: Microalbumin,Random Urine < 12.0 mg/L (NO RANGE EST.)
[2025-06-03 11:51] LABS: Hematocrit 39.9 % (37-47); Hemoglobin 12.5 g/dL (12.0-15.0); Immature Granulocytes Count 0.020 X10^3/uL (0.0-0.0); Mean Corp Hgb Conc 31.3 g/dL (32-36); Mean Corpuscular Volume 90.3 fL (81-99); Mean Platelet Vol. 10.6 fl (6.2-12.0); NRBC Flagged by Analyzer 0 % (0-5); Platelet Count 250 K/mm3 (150-450); RBC Distribution Width CV 13.5 % (11.6-14.6); RBC Distribution Width SD 44.9 fl (35.1-43.9); Red Blood Count 4.42 M/mm3 (4.2-5.4); White Blood Count 5.9 K/mm3 (4.4-11.0)
== END | disposition home or self-care (01) ==
LOC: MTLAB 07:03
PROVIDERS: PCP Internal Medicine; Referring Provider Internal Medicine; Visit Provider Internal Medicine
DX: I11.9 Hypertensive heart disease without heart failure (principal); E78.00 Pure hypercholesterolemia, unspecified; E03.9 Hypothyroidism, unspecified; E55.9 Vitamin D deficiency, unspecified
CPT/HCPCS: 36415; 80053; 80061; 81001; 82043; 82306; 82570; 84443; 85025

== ENCOUNTER → 2025-11-01 | Outpatient (CLI) | payer MEDICARE, OTHER, SELFPAY ==
--- NOTE | 2025-11-01 07:45 | BI_ITS ---
EXAM: SCRN MAMM (CAD)W/ROCKY BILAT DATE: 11/01/2025 CLINICAL HISTORY: F, Age 75 y/o , BREAST CANCER SCREENING TECHNIQUE: Procedure Code: [id number] Modality: MG Procedure: SCRN MAMM (CAD)W/ROCKY BILAT COMPARISON: Prior exam(s) dated 10/19/2024, 10/10/2023, 09/07/2022. FINDINGS: TISSUE DENSITY: The breasts are almost entirely fatty. Bilateral Breast Mammographic Findings: No significant masses, calcifications or other abnormalities are identified. BI/SCRN MAMM (CAD)W/ROCKY BILAT IMPRESSION: There is no mammographic evidence of malignancy. OVERALL FINAL ASSESSMENT BI-RADS 1: NEGATIVE. RECOMMENDATION: Routine annual follow-up in 1 Year Additional Recommendation none A letter with findings and recommendations will be mailed to the patient. Reading Location: [id number]
== END | disposition home or self-care (01) ==
LOC: OPBI 07:38
PROVIDERS: PCP Internal Medicine; Referring Provider Internal Medicine; Visit Provider Internal Medicine
DX: Z12.31 Encounter for screening mammogram for malignant neoplasm of breast (principal)
CPT/HCPCS: 77063; 77067